=== PATIENT | female | born 1990 | race Caucasian/White ===

== ENCOUNTER → 2017-12-21 06:51 | Outpatient (CLI) | payer OTHER, SELFPAY ==
[2017-12-21 07:51] LABS: Glucose GTT-Gestation. Fasting 84 mg/dL (<105)
[2017-12-21 08:57] LABS: Glucose GTT-Gestational 1 Hr 193 mg/dL (<190)
[2017-12-21 11:04] LABS: Glucose GTT-Gestational 3 Hr 120 L (<145)
[2017-12-21 11:28] LABS: Glucose GTT-Gestational 2 Hr 147 mg/dL (<165)
== END ==
PROVIDERS: Family Provider Internal Medicine; PCP Internal Medicine; Visit Provider Obstetrics & Gynecology
DX: O99.810 Abnormal glucose complicating pregnancy (principal); Z3A.00 Weeks of gestation of pregnancy not specified
CPT/HCPCS: 36415; 82951; 82952

== ENCOUNTER → 2018-01-10 15:34 | Outpatient (CLI) | payer OTHER, SELFPAY ==
[2018-01-10 16:30] LABS: ROM Internal Control Test YES-OK TO RESULT pt. (Internal QC)
[2018-01-10 16:32] LABS: ROM Patient Test Negative (Negative)
== END ==
PROVIDERS: Visit Provider Obstetrics & Gynecology
DX: Z34.83 Encounter for supervision of other normal pregnancy, third trimester (principal)
CPT/HCPCS: 84112

== ENCOUNTER → 2018-02-02 15:13 | Outpatient (CLI) | payer OTHER, SELFPAY ==
[2018-02-02 16:54] LABS: Group B Strep DNA By PCR Negative (Negative); Internal Control PASS; Probe Check PASS; Specimen Processing Control PASS
== END ==
PROVIDERS: Visit Provider Obstetrics & Gynecology
DX: Z36.85 Encounter for antenatal screening for Streptococcus B (principal)
CPT/HCPCS: 87081; 87653

== ENCOUNTER → 2018-02-11 13:23 | Outpatient (CLI) | payer OTHER, SELFPAY ==
[2018-02-11 13:52] LABS: ROM Internal Control Test YES-OK TO RESULT pt. (Internal QC); ROM Patient Test Negative (Negative)
== END ==
PROVIDERS: Visit Provider Obstetrics & Gynecology
DX: Z34.83 Encounter for supervision of other normal pregnancy, third trimester (principal)
CPT/HCPCS: 84112

== ENCOUNTER 2018-02-19 07:00 | Inpatient (IN) | payer OTHER, SELFPAY ==
[2018-02-19 07:36] VITALS: BMI 28.7
[2018-02-19] MEDS: Lactated Ringers 1,000 ML 50 ML IV ×3 (07:50→16:41)
[2018-02-19] MEDS: Oxytocin 30 units/NS 500 ml 30 UNITS/500 ML IV.SOLN IV (08:10)
[2018-02-19 08:14] LABS: Hematocrit 32.8 % (37-47); Hemoglobin 10.9 g/dl (12.0-15.0); Mean Corp Hgb Conc 33.2 g/gl (32-36); Mean Corpuscular Hgb 28.9 pg (27.0-32.0); Mean Platelet Vol. 10.8 fl (6.2-12.0); Platelet Count 227 K/mm3 (150-450); RBC Distribution Width CV 13.8 % (11.6-14.6); RBC Distribution Width SD 41.9 fl (35.1-43.9); Red Blood Count 3.77 M/mm3 (4.2-5.4); White Blood Count 7.9 K/mm3 (4.4-11.0)
[2018-02-19] MEDS: Acetaminophen 325 MG Tablet PO (08:17)
[2018-02-19 08:19] LABS: Scan Indicated on CBC? Y/N NO
[2018-02-19] MEDS: fentaNYL-bupivacaine (epidural) 100 ML BAG EPIDURAL ×2 (12:20→16:58)
--- NOTE | 2018-02-19 16:35 | PCM.PN.OB ---
Subjective: Feeling some pressure. Objective: Afeb VSS FHR tracing Cat 1 - Physical Exam General: Alert, Oriented x3, Cooperative, No apparent distress Abdomen: Gravid, Appropriate for Gestational Age Extremities: No edema Comment: CE /-2 Weight: 178 lb Body Mass Index (BMI) 28.7 Intake and Output for Last 24 Hours 02/17/18 02/18/18 02/19/18 23:59 23:59 23:59 Intake Total 2290 / 2290 Output Total 1600 / 1600 Balance 690 / 690 Laboratory Tests Past 24 Hrs 02/19/18 02/19/18 07:50 07:50 WBC 7.9 RBC 3.77 L Hgb 10.9 L Hct 32.8 L MCV 87.0 MCH 28.9 MCHC 33.2 RDW 13.8 RDW Differential 41.9 Plt Count 227 MPV 10.8 Blood Type B POSITIVE Antibody Screen NEGATIVE Medical Necessity - Tobacco Use Smoking Status: Never smoker Assessment/Plan Progressing in labor. Continue pitocin induction. FHR tracing reassuring.
--- NOTE | 2018-02-19 18:48 | PCM.DCVAG ---
Discharge Diet: No Restrictions Discharge Activity: Return to Normal Activity, May Drive, May Shower Return to work on:: 04/21/18 May resume sexual activity in: 4-6 weeks Call your doctor if your incision/area has: Sudden Increased Bleeding, Increased Pain/ Swelling, Foul Smelling Discharge Call your doctor if you observe: Fever of 101 or Higher, Inability to urinate, Inability to have a bowel movement, Using more than one pad per hour, Shortness of breath, Chest pain, Calf discomfort, Uncontrolled pain Cleanse incision/area with: Soap & Water Additional Instructions: If you experience any of the following, contact your healthcare provider. Bleeding that soaks a pad every hour for 2 hours Fever 100.4 or higher Unrelieved incision or abdominal pain Swelling, redness, discharge or bleeding from your incision or episiotomy site Your incision begins to separate Problems urinating (including inability to urinate or burning while urinating). Visual changes Severe headache Flu-like symptoms Pain or redness in one of both of your breasts Pain, warmth, tenderness or swelling in your legs, especially the calf area Frequent nausea and vomiting Symptoms of depression or anxiety If you experience any of the following, call 911 or go to the nearest Emergency Room. Chest pain Problems breathing Seizure activity Partial or complete paralysis of a body part, slurred speech, weakness or drooping of the face, or a sudden inability to walk or hold your balance Allergies/Adverse Reactions: Allergies morphine Allergy (Verified 02/19/18 07:37) Hives Medications to take at Discharge Ferrous Sulfate [Iron] 325 tab PO BID 04/25/16 Vit No.130/Iron/FA [ Tablet] 1 tab PO DAILY 04/25/16 Calcium Carbonate [Tums] 1,000 mg PO BIDCM 06/06/16 Ibuprofen [Ibu] 600 mg PO Q6H PRN PRN #30 tab 02/19/18 The following prescriptions were given: Ibuprofen [Ibu] 600 mg PO Q6H PRN PRN #30 tab PRN Reason: pain or cramping Please Follow Up With: Conrado Sullivan MD When: 6 weeks Primary Care Physician: Catherine Adair MD [Primary Care Provider] - Proposed Discharge Date: 02/21/18
--- NOTE | 2018-02-19 18:51 | DCINST_ITS ---
Discharge Diet: No Restrictions Discharge Activity: Return to Normal Activity, May Drive, May Shower Return to work on:: 04/21/18 May resume sexual activity in: 4-6 weeks Call your doctor if your incision/area has: Sudden Increased Bleeding, Increased Pain/ Swelling, Foul Smelling Discharge Call your doctor if you observe: Fever of 101 or Higher, Inability to urinate, Inability to have a bowel movement, Using more than one pad per hour, Shortness of breath, Chest pain, Calf discomfort, Uncontrolled pain Cleanse incision/area with: Soap & Water Additional Instructions: If you experience any of the following, contact your healthcare provider. * Bleeding that soaks a pad every hour for 2 hours * Fever 100.4 or higher * Unrelieved incision or abdominal pain * Swelling, redness, discharge or bleeding from your incision or episiotomy site * Your incision begins to separate * Problems urinating (including inability to urinate or burning while urinating) . * Visual changes * Severe headache * Flu-like symptoms * Pain or redness in one of both of your breasts * Pain, warmth, tenderness or swelling in your legs, especially the calf area * Frequent nausea and vomiting * Symptoms of depression or anxiety If you experience any of the following, call 911 or go to the nearest Emergency Room. * Chest pain * Problems breathing * Seizure activity * Partial or complete paralysis of a body part, slurred speech, weakness or drooping of the face, or a sudden inability to walk or hold your balance Allergies/Adverse Reactions: Allergies morphine Allergy (Verified 02/19/18 07:37) Hives Medications to take at Discharge Ferrous Sulfate [Iron] 325 tab PO BID 04/25/16 Vit No.130/Iron/FA [ Tablet] 1 tab PO DAILY 04/25/16 Calcium Carbonate [Tums] 1,000 mg PO BIDCM 06/06/16 Ibuprofen [Ibu] 600 mg PO Q6H PRN PRN #30 tab 02/19/18 The following prescriptions were given: Ibuprofen [Ibu] 600 mg PO Q6H PRN PRN #30 tab PRN Reason: pain or cramping Please Follow Up With: Conrado Sullivan MD When: 6 weeks Primary Care Physician: Catherine Adair MD [Primary Care Provider] - Proposed Discharge Date: 02/21/18
--- NOTE | 2018-02-19 19:03 | PCM.OB.VAG ---
Vaginal Delivery Maternal Presentation: Elective Induction 39 weeks elective induction of labor, uncomplicated Method of Induction: Pitocin Amniotic Membrane Rupture Type: Artificial Rupture of Membrane time: 0835 Amniotic Fluid Description: Clear Final PELON: 02/26/18 Final PELON Source: [place] <20 weeks Gestational age: 39 Weeks and 0 Days Date of Procedure: 02/19/18 Pre-Operative Diagnosis: Labor Post-Operative Diagnosis: Same Surgery/ Procedure Performed: Spontaneous Vaginal Delivery Anesthesiologist: Jadon Yun Type of Anesthesia: Epidural Description of Procedure: Prosper progressed from 4 cm to FD over about 10 hours then pushed for one hour to deliver a live female without complication. Delayed cord clamping was employed. There was an active cry shortly after delivery. After delivery the baby was dried and the mouth suctioned with a bulb suction. The cord was clamped and cut. The Baby was then placed on mom's chest for skin to skin. The placenta was delivered spontaneously intact with a centrally located 3VC. The uterus contracted well. The cervix and upper vagina were intact. A second degree posterior vaginal/perineal tear was repaired with 2-0 vicryl. Presentation: Vertex Placental Delivery Description: Spontaneous Placenta Disposition: [facility] Cord Vessel Description: 3 Vessels Cord Entanglement: None Estimated Blood Loss: 300cc Infant A gender: Female (1 minute): 9 (5 minute): 10 Episiotomy Description: None Laceration: Midline, Perineal Extension/lac, Vaginal Extension/lac, 2nd degree Medications given after delivery: IV Pitocin Complications: None
[2018-02-19] MEDS: Oxytocin 30 units/NS 500 ml 30 UNITS/500 ML IV.SOLN 334 UNITS IV (19:43)
[2018-02-19] MEDS: Oxytocin 30 units/NS 500 ml 30 UNITS/500 ML IV.SOLN 167 UNITS IV (20:15)
[2018-02-19] MEDS: Ibuprofen 600 MG Tablet PO (21:41)
[2018-02-19] MEDS: oxyCODONE 5 MG Tablet PO (23:04)
[2018-02-20] VITALS: BP 103/56; PULSE 72; RESP 17; TEMP 37.2
[2018-02-20] MEDS: oxyCODONE 5 MG Tablet PO ×3 (03:26→21:00)
[2018-02-20 03:36] VITALS: BP 112/76; PULSE 83; RESP 18; TEMP 36.8
[2018-02-20 04:19] LABS: Hematocrit 31.3 % (37-47); Hemoglobin 10.2 g/dl (12.0-15.0); Mean Corp Hgb Conc 32.6 g/gl (32-36); Mean Corpuscular Hgb 28.2 pg (27.0-32.0); Mean Corpuscular Volume 86.5 fL (81-99); Mean Platelet Vol. 10.4 fl (6.2-12.0); Platelet Count 195 K/mm3 (150-450); Red Blood Count 3.62 M/mm3 (4.2-5.4); White Blood Count 12.2 K/mm3 (4.4-11.0)
[2018-02-20 04:20] LABS: Scan Indicated on CBC? Y/N NO
[2018-02-20] MEDS: Ibuprofen 600 MG Tablet PO ×2 (06:52→16:22)
[2018-02-20 08:00] VITALS: BP 120/65; PULSE 87; RESP 16; TEMP 36.8; O2SAT 97
--- NOTE | 2018-02-20 08:09 | PCM.PN.OB ---
Subjective: No specific complaints. Plans to bottle feed. Bleeding light. Objective: Afeb VSS Hgb stable - Physical Exam General: Alert, Oriented x3, Cooperative, No apparent distress Lungs: Clear to auscultation, Normal air movement Cardiovascular: Regular rate, Regular Rhythm Abdomen: Soft, Non Tender, Non-Distended, - - Fundus firm nontender Extremities: No edema Skin: No rashes Neurological: Neuro grossly intact Psych/Mental Status: Normal Affect Comment: Lochia light Vital Signs Temp Pulse Resp BP Pulse Ox 98.2 F 87 16 120/65 97 02/20/18 08:00 02/20/18 08:00 02/20/18 08:00 02/20/18 08:00 02/20/18 08:00 Oxygen Delivery Method Room Air Weight: 178 lb Body Mass Index (BMI) 28.7 Intake and Output for Last 24 Hours 02/18/18 02/19/18 02/20/18 23:59 23:59 23:59 Intake Total 3060 / 3060 Output Total 3700 / 3700 400 / 400 Balance -640 / -640 -400 / -400 Laboratory Tests Past 24 Hrs 02/19/18 02/19/18 02/20/18 07:50 07:50 04:00 WBC 7.9 12.2 H RBC 3.77 L 3.62 L Hgb 10.9 L 10.2 L Hct 32.8 L 31.3 L MCV 87.0 86.5 MCH 28.9 28.2 MCHC 33.2 32.6 RDW 13.8 14.0 RDW Differential 41.9 44.0 H Plt Count 227 195 MPV 10.8 10.4 Blood Type B POSITIVE Antibody Screen NEGATIVE Medical Necessity - Tobacco Use Smoking Status: Never smoker Assessment/Plan Doing well on PP day#1. Continue routine PP care.
[2018-02-20 13:10] VITALS: BP 123/80; PULSE 91; RESP 16; TEMP 36.6; O2SAT 96
[2018-02-20] MEDS: Acetaminophen 500 MG Tablet 1000 MG PO (13:15)
[2018-02-20] MEDS: Prenatal Vits Tablet 1 TABLET PO (13:16)
--- NOTE | 2018-02-20 16:27 | NURSING ---
pt's calls out frequently states is uncomfortable, pt medicated several times for pain she rates a 7/10. states she called her labor pain a 3/10 yesterday and questioning why she is having so much discomfort. pt states its crampy feeling, this is her second del and we discussed afterbirth pains, she states she didnt have this after first baby,pt enc to be up and ambulating and to take motrin every 6 to 8 hours and to avoid the oxyir due to the possible constipation issues that may happen.
[2018-02-20] MEDS: Senna/Docusate Sodium 1 Tablet PO (18:32)
[2018-02-20 20:51] VITALS: BP 121/64; PULSE 82; RESP 18; TEMP 36.6; O2SAT 98
[2018-02-21 02:11] VITALS: BP 112/58; PULSE 78; RESP 16; TEMP 36.6; O2SAT 98
[2018-02-21] MEDS: Ibuprofen 600 MG Tablet PO ×2 (02:29→08:27)
[2018-02-21] MEDS: oxyCODONE 5 MG Tablet PO (05:49)
--- NOTE | 2018-02-21 06:52 | PCM.PN.OB ---
Subjective: No specific complaints. Bleeding light. Objective: AFeb VSS - Physical Exam General: Alert, Oriented x3, Cooperative, No apparent distress Lungs: Clear to auscultation, Normal air movement Cardiovascular: Regular rate, Regular Rhythm Abdomen: Soft, Non Tender, Non-Distended, - - Fundus firm nontender Extremities: No edema Skin: No rashes Neurological: Neuro grossly intact Psych/Mental Status: Normal Affect Comment: Lochia light Vital Signs Temp Pulse Resp BP Pulse Ox 97.8 F 78 16 112/58 L 98 02/21/18 02:11 02/21/18 02:11 02/21/18 02:11 02/21/18 02:11 02/21/18 02:11 Oxygen Delivery Method Room Air Weight: 178 lb Body Mass Index (BMI) 28.7 Intake and Output for Last 24 Hours 02/19/18 02/20/18 02/21/18 23:59 23:59 23:59 Intake Total 3060 / 3060 Output Total 3700 / 3700 400 / 400 Balance -640 / -640 -400 / -400 Medical Necessity - Tobacco Use Smoking Status: Never smoker Assessment/Plan Doing well on PP day#2 cleared for discharge home today. Home going instructions and warnings given.
--- NOTE | 2018-02-21 06:53 | PCM.DC.SUM ---
Discharge Date and Diagnosis Date of Admission: 02/19/18 Date of Discharge: 02/21/18 - Primary Discharge Diagnosis S/P Hospital Course and Treatment Consultations 02/19/18 07:19 Consult: Anesthesia Routine Comment: Reason For Exam: LABOR Operations: None Procedures: - - Pitocin induction, epidural, Summary of Care Provided: The patient is a 27 year old F [admitted for elective induction of labor. Induction resulted in uncomplicated vaginal delivery. Post course unremarkable. Discharged home on PP day#2.] Discharge Diet: No Restrictions Discharge Activity: Return to Normal Activity, May Drive, May Shower Return to work on:: 04/21/18 May resume sexual activity in: 4-6 weeks Call your doctor if your incision/area has: Sudden Increased Bleeding, Increased Pain/ Swelling, Foul Smelling Discharge Call your doctor if you observe: Fever of 101 or Higher, Inability to urinate, Inability to have a bowel movement, Using more than one pad per hour, Shortness of breath, Chest pain, Calf discomfort, Uncontrolled pain Cleanse incision/area with: Soap & Water Home Medications: Medications to take at Discharge Ferrous Sulfate [Iron] 325 tab PO BID 04/25/16 Vit No.130/Iron/FA [ Tablet] 1 tab PO DAILY 04/25/16 Calcium Carbonate [Tums] 1,000 mg PO BIDCM 06/06/16 Ibuprofen [Ibu] 600 mg PO Q6H PRN PRN #30 tab 02/19/18 Following Prescrptions Were Given to Patient: Ibuprofen [Ibu] 600 mg PO Q6H PRN PRN #30 tab PRN Reason: pain or cramping Primary Care Physician: Catherine Adair MD [Primary Care Provider] - Please Follow Up With: Conrado Sullivan MD When: 6 weeks Disposition: Home Minutes spent on discharge:: 15 Patient Condition:: Good Medical Necessity - Tobacco Use Smoking Status: Never smoker Meaningful Use Info Meaningful Use Diagnoses (Choose all that apply): None applicable
[2018-02-21] MEDS: Senna/Docusate Sodium 1 Tablet PO (08:26)
[2018-02-21] MEDS: Prenatal Vits Tablet 1 TABLET PO (08:28)
[2018-02-21 10:00] VITALS: BP 121/80; PULSE 82; RESP 16; TEMP 36.3
== END 2018-02-21 10:00 | disposition home or self-care (01) | DRG 775 ==
PROVIDERS: Admitting Provider Obstetrics & Gynecology; Family Provider Internal Medicine; PCP Internal Medicine; Visit Provider Obstetrics & Gynecology
DX: O99.02 Anemia complicating childbirth (principal); O70.1 Second degree perineal laceration during delivery; Z3A.39 39 weeks gestation of pregnancy; Z37.0 Single live birth
CPT/HCPCS: 59025; 59050; 85027; 86850; 86900; 99218; J7120; G0378

== ENCOUNTER → 2018-08-31 09:40 | Outpatient (CLI) | payer OTHER, SELFPAY ==
[2018-09-05 15:56] LABS: HPV Reflexed? NOT INDICATED
== END ==
PROVIDERS: Family Provider Internal Medicine; PCP Internal Medicine; Referring Provider Obstetrics & Gynecology; Visit Provider Obstetrics & Gynecology
DX: Z12.4 Encounter for screening for malignant neoplasm of cervix (principal)
CPT/HCPCS: 88175; G0145

== ENCOUNTER → 2018-09-23 13:38 | Outpatient (CLI) | payer OTHER, SELFPAY ==
[2018-09-23 17:14] LABS: Chlamydia Trachomatis by PCR Negative (Negative); Neisserai gonorrhoeae by PCR Negative (Negative); Probe Check PASS; Sample Adequacy Control PASS; Specimen Processing Control PASS
--- OUTSIDE RECORDS SUMMARY | 2018-12-28 04:09 | XMS RPT_ITS ---
:1990 Author Organization [place] Support Name Relationship Address Phone ARTURO CARTWRIGHT DDS Unavailable [address] + [place] [address] [facility] Unavailable [address] + [place] [address] ARTURO CARTWRIGHT DDS Unavailable [address] + [place] [address] [facility] Unavailable [address] + [place] [address] ARTURO CARTWRIGHT DDS Unavailable [address] + [place] [address] [facility] Unavailable [address] + [place] [address] ARTURO CARTWRIGHT DDS Unavailable [address] + [place] [address] [facility] Unavailable [address] [phone] [place] [address] ARTURO CARTWRIGHT DDS Unavailable [address] + [place] [address] [facility] Unavailable [address] [phone] [place] [address] ARTURO CARTWRIGHT DDS Unavailable [address] + [place] [address] [facility] Unavailable [address] [phone] [place] [address] ARTURO CARTWRIGHT DDS Unavailable [address] + [place] [address] [facility] Unavailable [address] [phone] [place] [address] ARTURO CARTWRIGHT DDS Unavailable [address] + [place] [address] LAURIE HARRY Unavailable [address] [phone] [place] [address] Care Team Providers Name Role Phone PAGE, JYOTHI VAIBHAV Attending Unavailable FELIXNAZ (YARD SPECIALIST) Attending Unavailable TALAMPAS, KONG D Attending Unavailable TALAMPAS, KONG D Referring Unavailable Seals, Conrado Attending Unavailable Seals, Conrado Attending Unavailable Seals, Conrado Attending Unavailable Seals, Conrado Referring Unavailable Talampas, Kong Primary Care Unavailable Seals, Conrado Admitting Unavailable Seals, Conrado Attending Unavailable Seals, Conrado Referring Unavailable Talampas, Kong Primary Care Unavailable Roel De Los Santos Attending Unavailable Seals, Conrado Attending Unavailable Seals, Conrado Attending Unavailable Seals, Conrado Attending Unavailable Seals, Conrado Referring Unavailable Talampas, Kong Primary Care Unavailable PROBLEMS PROBLEMS DATE TYPE CONDITION / CODE ATTENDING STATUS SOURCE 10/07/2018 Unknown Z34.81 - Encounter Conrado Sullivan Active [facility] for supervision of Community other normal Hospital , first Repository trimester / Z34.81(ICD-10) 09/23/2018 Unknown Z11.3 - Encounter SealConrado sherman Active [facility] for screening for Community infections with a Hospital predominantly Repository sexual mode of transmission / Z11.3(ICD-10) 08/31/2018 Unknown Z12.4 - Encounter SealConrado sherman Active [facility] for screening for Community malignant neoplasm Hospital of cervix / Repository Z12.4(ICD-10) 02/11/2018 Unknown Z34.83 - Encounter SealConrado sherman Active [facility] for supervision of Community other normal Hospital , third Repository trimester / Z34.83(ICD-10) 02/02/2018 Unknown Z36.85 - Encounter SealConrado sherman Active [facility] for Community screening for Hospital Streptococcus B / Repository Z36.85(ICD-10) PROCEDURES PROCEDURES No Procedure Records FoundRESULTS RESULTS URINE DRUG SCREEN Collected: 10/07/2018 Status: F Source: MULU (KRISTINA) 9:28 AM [facility] REPOSITORY Order Comment: Comments: CHECK IMMUNITY STATUS List of Drugs Taken or Suspected? URRAN TYPE CODE TESTS RESULT OUT OF RANGE REFERENCE UNITS LAB L505.0075 TO BE Normal CONFIRMED Result Comment: CONFIRMATORY TESTING FOR ALL POSITIVE URINE DRUG SCREEN RESULTS WILL ONLY BE SENT OUT UPON PHYSICIAN ORDER. VISTA Urine Drug Screen methods provide only preliminary analytical test results. A more specific alternate chemical method must be used in order to obtain a confirmed analytical result. Gas chromatography/mass spectrometery (GC/MS) is the preferred confirmatory method. Clinical consideration and professional judgement should be applied to any drug of abuse test result, particularly when preliminary positive results are used. URINE TCA TESTING MUST BE ORDERED SEPARATELY. USE TEST MNEMONIC: [facility] LAB L505.5005 VISTA UDS PH 7 Normal LAB L505.5015 <1000 ng/mL AMPHETAMINES Normal NEGATIVE LAB L505.5025 < 200 ng/mL BARBITIURATES Normal NEGATIVE LAB L505.5035 < 200 ng/mL BENZODIAZIPINE Normal NEGATIVE LAB L505.5045 < 300 ng/mL COCAINE Normal NEGATIVE LAB L505.5055 < 500 ng/mL ECSTACY Normal NEGATIVE LAB L505.5065 < 300 ng/mL METHADONE Normal NEGATIVE LAB L505.5075 < 300 ng/mL OPIATES Normal NEGATIVE LAB L505.5085 < 25 ng/mL PCP Normal NEGATIVE LAB L505.5095 < 50 ng/mL THC Normal NEGATIVE Performed By: #### L505.5000, L505.6240 #### [facility] [address] [place], [place], [address] NICOTINE URINE DRUG Collected: 10/07/2018 Status: F Source: [place] SCREEN 9:28 AM [facility] REPOSITORY Order Comment: Comments: CHECK IMMUNITY STATUS List of Drugs Taken or Suspected? URRAN TYPE CODE TESTS RESULT OUT OF RANGE REFERENCE UNITS LAB L505.6250 TO BE Normal CONFIRMED Result Comment: CONFIRMATORY TESTING FOR ALL POSITIVE URINE DRUG SCREEN RESULTS WILL ONLY BE SENT OUT UPON PHYSICIAN ORDER. The results of Urine Drug Screen methods provide only preliminary analytical test results. A more specific alternate chemical method must be used in order to obtain a confirmed analytical result. Gas chromatography/mass spectrometery (GC/MS) is the preferred confirmatory method. Clinical consideration and professional judgement should be applied to any drug of abuse test result, particularly when preliminary positive results are used. LAB L505.6270 <200 ng/mL Normal COT DRG Negative SCREEN Result Comment: Cotinine is the first-stage metabolite of Nicotine. Performed By: #### L505.5000, L505.6240 #### [facility] [address] [place], [place], [address] URINALYSIS, ROUTINE Collected: 10/07/2018 Status: F Source: [place] (DIPSTICK) 9:28 AM [facility] REPOSITORY Order Comment: Comments: CHECK IMMUNITY STATUS How was Urine Obtained? Urine, Random TYPE CODE TESTS RESULT OUT OF RANGE REFERENCE UNITS LAB L400.3000 Yellow COLOR Normal Yellow LAB L400.3050 Clear Normal CLARITY Sl. Cloudy LAB L400.3200 Normal mg/dl Normal GLUCOSE, UR Normal LAB L400.3300 Negative mg/dL Normal BILIRUBIN URINE Negative LAB L400.3400 Negative mg/dl Normal KETONE UR Negative LAB L400.3465 1.002-1.030 Normal SP.GR. DIPSTX 1.020 LAB L400.3550 5.0 - 8.0 pH UR Normal 6.5 LAB L400.3600 Negative mg/dl PROT Normal DIPSTX Negative LAB L400.3700 Normal mg/dl Normal UROBILI Normal LAB L400.3750 Negative Normal NITRITE UR Negative LAB L400.3780 Negative /ul Normal OCCULT BLOOD-UR Negative LAB L400.3800 Negative /ul LEUK Normal ESTERASE Negative Performed By: #### L400.2010 #### [facility] [address] [place], [place], [address] CBC W/DIFF, AUTOMATED Collected: 10/07/2018 Status: F Source: [place] 9:28 AM [facility] REPOSITORY TYPE CODE TESTS RESULT OUT OF RANGE REFERENCE UNITS LAB L100.1000 4.4-11.0 K/mm3 Normal WBC 6.3 LAB L100.1200 4.2-5.4 M/mm3 Low RBC 3.99 LAB L100.1300 12.0-15.0 g/dl Low HGB 11.4 LAB L100.1400 37-47 % Low HCT 34.4 LAB L100.1500 81-99 fL Normal MCV 86.2 LAB L100.1600 27.0-32.0 pg Normal MCH 28.6 LAB L100.1700 32-36 g/gl Normal MCHC 33.1 LAB L100.1810 11.6-14.6 % Normal RDW CV 12.6 LAB L100.1820 35.1-43.9 fl Normal RDW SD 39.7 LAB L100.1900 150-450 K/mm3 Normal PLT 243 LAB L100.2000 6.2-12.0 fl Normal MPV 10.7 LAB L100.2100 47-70 % Normal NEUT% 63.0 LAB L100.2200 19-41 % Normal LY% 28.0 LAB L100.2300 0-10 % Normal MONO% 7.0 LAB L100.2400 0-5 % Normal EO% 1.6 LAB L100.2500 0-1 % Normal BASO% 0.2 LAB L100.2550 0.0-0.9 % Normal IM GRAN % 0.200 Result Comment: IG% - Immature Granulocytes (promyelocytes, myelocytes and metamyelocytes) > 1% indicates that a LEFT SHIFT is Present. LAB L100.2620 2.0-7.7 X10 3/uL Normal Absolute Neut 4.0 LAB L100.2720 0.83-4.51 X10 3/ul Normal Absolute Lymph 1.76 Performed By: #### L100.0100 #### [facility] [place], [place], [id number] THYROID STIM HORMONE Collected: 10/07/2018 Status: F Source: AR[place] (TSH) 9:28 AM [facility] REPOSITORY TYPE CODE TESTS RESULT OUT OF RANGE REFERENCE UNITS LAB L501.9520 0.358-3.74 uIU/mL Normal TSH 0.69 Performed By: #### L501.9520 #### [facility] [address] [place], [place], [address] RUBELLA IGG Collected: 10/07/2018 Status: F Source: ARIMO 9:28 AM [facility] REPOSITORY Order Comment: Comments: CHECK IMMUNITY STATUS TYPE CODE TESTS RESULT OUT OF RANGE REFERENCE UNITS LAB L509.4000 IU/mL Normal Rubella IgG 107.4 Result Comment: Antibody results Interpretation of Immune Status < 5 IU/ml Presumed Non-immune 5 - < 10 IU/ml Equivocal > or = 10 IU/ml Presumed Immune Performed By: #### L509.4000, L3890.6005 #### [facility] [address] [place], [place], [address] HIV - WCH Collected: 10/07/2018 Status: F Source: MULU 9:28 AM [facility] REPOSITORY Order Comment: Comments: CHECK IMMUNITY STATUS TYPE CODE TESTS RESULT OUT OF RANGE REFERENCE UNITS LAB L3890.6005 Nonreactive Normal HIV - WCH Non-Reactive Performed By: #### L509.4000, L3890.6005 #### [facility] [address] [place], [place], [address] T AND S-NO Collected: 10/07/2018 Status: F Source: MULU CHARGE W/PNP 9:28 AM [facility] REPOSITORY Order Comment: Reason for Type AND Screen/Red Cells: Surgery? N TYPE CODE TESTS RESULT OUT OF RANGE REFERENCE UNITS LAB B10.0800 B Normal BLOOD POSITIVE TYPE GEL LAB B100.4050 Normal Ab SCREEN NEGATIVE GEL Performed By: #### B100.7550 #### [facility] [address] [place], [place], [address] HEPATITIS B SURFACE Collected: 10/07/2018 Status: F Source: MULU AG 9:28 AM [facility] REPOSITORY Order Comment: Comments: CHECK IMMUNITY STATUS TYPE CODE TESTS RESULT OUT OF RANGE REFERENCE UNITS LAB L3100.0400 Negative Normal HB Negative SURF AG Result Comment: Performed at: [facility] [id number] Dev Ops Engineer: Cem Howell PhD, Phone: [phone] Performed By: #### L3100.0390, L3100.0625, L3400.0000 #### [facility] (refer to report for specific site) refer to report for address and phone number HEPATITIS C ANTIBODIES Collected: 10/07/2018 Status: F Source: MULU 9:28 AM [facility] REPOSITORY Order Comment: Comments: CHECK IMMUNITY STATUS TYPE CODE TESTS RESULT OUT OF RANGE REFERENCE UNITS LAB L3100.0650 0.0-0.9 s/co ratio Normal HEP C AB 0.2 Result Comment: Negative: < 0.8 Indeterminate: 0.8 - 0.9 Positive: > 0.9 The CDC recommends that a positive HCV antibody result be followed up with a HCV Nucleic Acid Amplification test (905443). Performed By: #### L3100.0390, L3100.0625, L3400.0000 #### [facility] (refer to report for specific site) refer to report for address and phone number V-ZOSTER IGG Collected: 10/07/2018 Status: F Source: MULU (IMMUNITY) 9:28 AM [facility] REPOSITORY Order Comment: Comments: CHECK IMMUNITY STATUS TYPE CODE TESTS RESULT OUT OF RANGE REFERENCE UNITS LAB L3400.0000 Immune >165 index Normal VZOST IgG [id number] Result Comment: Negative <135 Equivocal 135 - 165 Positive >165 A positive result generally indicates exposure to the pathogen or administration of specific immunoglobulins, but it is not indication of active infection or stage of disease. Performed By: #### L3100.0390, L3100.0625, L3400.0000 #### [facility] (refer to report for specific site) refer to report for address and phone number RPR Collected: 10/07/2018 Status: F Source: ARIMO 9:28 AM [facility] REPOSITORY TYPE CODE TESTS RESULT OUT OF REFERENCE UNITS RANGE LAB L700.5100 NONREACTIVE Normal RPR NONREACTIVE Performed By: #### L700.5100 #### [facility] [address] [place], [place], [address] CT/NG WCH BY PCR Collected: 09/23/2018 Status: F Source: ARIMO 9:30 AM [facility] REPOSITORY TYPE CODE TESTS RESULT OUT OF RANGE REFERENCE UNITS LAB L8200.2100 Negative Normal Chlam Negative Trac PCR LAB L8200.2200 Negative Normal NG by Negative PCR Performed By: #### L8200.2000 #### [facility] [address] 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 of containers..01 ThinPrep Vial TYPE CODE TESTS RESULT OUT OF RANGE REFERENCE UNITS LAB L7400.0800 . Normal DIAGN Comment Result Comment: NEGATIVE FOR INTRAEPITHELIAL LESION AND MALIGNANCY. CELLULAR CHANGES ASSOCIATED WITH INFLAMMATION ARE PRESENT. THIS SPECIMEN WAS RESCREENED PART OF OUR SERVICING MANAGER PROGRAM. LAB L7400.0900 . Normal ADEQ Comment Result Comment: Satisfactory for evaluation. Endocervical and/or squamous metaplastic cells (endocervical component) are present. LAB L7400.1400 . Normal PERFORM Comment Result Comment: Samira Mims, Tariff Publishing Agent (ASCP) LAB L7400.1500 . Normal QC Comment REV Result Comment: Estefania Rowell, Supervisory Tariff Publishing Agent (ASC) LAB L7400.2575 . Normal TEST METHOD Comment Result Comment: This liquid based ThinPrep(R) pap test was screened with the use of an image guided system. LAB L7400.2600 . Normal . COMM LAB L7400.2700 . Normal PAPSMR Comment Result Comment: The Pap smear is a screening test designed to aid in the detection of premalignant and malignant conditions of the uterine cervix. It is not a diagnostic procedure and should not be used as the sole means of detecting cervical cancer. Both false-positive and false-negative reports do occur. LAB L7400.2800 . Normal HPV RFLX Comment Result Comment: The HPV DNA reflex criteria were not met with this specimen result therefore, no HPV testing was performed. Performed at: - [address] [id number] Dev Ops Engineer: Erma Dee MD, Phone: [phone] Performed By: #### L7400.0350 #### [facility] (refer to report for specific site) refer to report for address and phone number PROGRESS Observed: 07/13/2018 Status: COMPLETED Source: [place] 5:08 PM [facility] REPOSITORY O ID: [id number] Author: Kong Adair Service: (none) Author Type: Physician Type: Progress Notes Filed: 08/02/2018 10:48 PM Note Text: Patient presents with: follow up on medical conditions SUBJECTIVE: Prosper Harry is a 27 year old year old lady here today for follow up appointment for review of medical conditions. Kids now 4yo and 2yo, Working 3 days a week. Anxiety issues noted. Not overwhelmed. Able to keep functioning. Sleeping okay IBS diagnosed. Up to once a week. Was on a med. Sister with Crohn's. Has had 2 scopes neg for IBD. PAST MEDICAL HISTORY Diagnosis Date - Allergic rhinitis Dr. Vick - Angioedema of lips Dr. Vick (tongue and lip swelling) - Cellulitis and abscess of unspecified site from ruptured appendix (March 2011--resolved) - Urticaria Dr. Vick Current Outpatient Prescriptions: ergocalciferol, vitamin D2, (VITAMIN D2 ORAL) Take by mouth. scopolamine (TRANSDERM-SCOP) 1 mg over 3 days Apply 1 Patch as directed every 72 hours. SPRINTEC 0.25-35 mg-mcg per tablet PLUS, CALCIUM CARB, 27 mg iron- 1 mg tab No current facility-administered medications for this visit. OBJECTIVE: BP 122/68 (BP Site: Left Arm, BP Position: Sitting, BP Cuff Size: Regular Adult) Pulse 84 Resp 12 Wt 69.9 kg (154 lb) BMI 24.86 kg/m? Patient is alert, oriented times 3, no apparent distress, affect is bright, reactive. Heart: Regular rate, rhythm, no murmurs, gallops, rubs. Lungs: Clear to auscultation, bilaterally, breathing non labored. Ext: No cyanosis, clubbing, or edema. ASSESSMENT AND PLAN: Encounter Diagnosis ICD-10-CM 1. Irritable bowel syndrome with diarrhea K58.0 2. Motion sickness, subsequent encounter T75.3XXD scopolamine (TRANSDERM-SCOP) 1 mg over 3 days 3. Generalized anxiety disorder F41.1 4. Need for vaccination Z23 ADMIN OF INFLUENZA VACCINE INFLUENZA VACCINE QUADRIVALENT AGE 3 YRS PLUS + IM Above issues addressed with patient. Patient involved in shared decision making for management of medical issues. History and medications reviewed. Epic updated as needed Refills taken care of and meds adjusted as indicated after reviewed history, exam and labs. Health Maintenance reviewed. Updated record and/or ordered tests as recorded. Encouraged on efforts at healthy diet and regular exercise and adequate sleep. Will monitor anxiety symptoms and work on better ways to manage anxiety. Also deal with IBS issues. Follow up with GI as needed. Continue present management. Further evaluation and treatment as indicated. Monitor for signs and symptoms of IBD given family history. Discussed management of motion sickness. Further evaluation and treatment as indicated. Can refer for counseling as indicated. Consider medications as indicated, especially if issues with getting overwhelmed and having trouble functioning. The majority of the visit was spent counseling and/or coordinating care for the patient. Qswt-ek-djuu time was at least 20 minutes. Kong Adair MD CNOV Observed: 07/13/2018 Status: COMPLETED Source: [place] 4:[address] [facility] REPOSITORY Office Visit (INTMWS) PROSPER HARRY ([id number]) 1990 F Date Time Provider Department 07/13/18 4:00 PM KONG ADAIR INTMWS During your visit today, we recorded the following information about you: Pulse Respiration Blood pressure Weight 84/minute 12/minute 122/68 69.9 kg Andrei Russell 07/13/2018 5:08 PM Signed Influenza Vaccine Documentation: ? Patient is identified by name and date of : Yes ? Patient is older than 6 months of age: Yes ? Patient denies a severe allergy to any vaccine component or to a previous dose of influenza vaccine: Yes FOR EGG ALLERGY CONCERNS, REFER TO PROVIDER. ? Denies allergy to gelatin, formaldehyde, thimerosol :Yes ? Patient is afebrile and not moderately or severely ill: Yes ? Does the patient have a history of Guillain ?Plummer Syndrome (a severe paralytic illness): No ? Denies bone marrow transplant prior 6 months or solid organ transplant prior 3 months: Yes ? Denies a history of fainting after a prior injection or medical procedure? Yes If patient has fainted in the past, the CDC recommends sitting or lying down for 15 minutes after the vaccination. ? VIS sheet provided: Yes ? See Immunization Form in EpicCare for details of immunizations administered today. If patient reports dizziness, vision changes or ringing in the ears post vaccination ? please have patient sit or lie down for 15 minutes. Kong Adair MD 08/02/2018 10:48 PM Signed Patient presents with: follow up on medical conditions SUBJECTIVE: Prosper Harry is a 27 year old year old lady here today for follow up appointment for review of medical conditions. Kids now 4yo and 2yo, Working 3 days a week. Anxiety issues noted. Not overwhelmed. Able to keep functioning. Sleeping okay IBS diagnosed. Up to once a week. Was on a med. Sister with Crohn's. Has had 2 scopes neg for IBD. PAST MEDICAL HISTORY Diagnosis Date - Allergic rhinitis Dr. Vick - Angioedema of lips Dr. Vick (tongue and lip swelling) - Cellulitis and abscess of unspecified site from ruptured appendix (March 2011--resolved) - Urticaria Dr. Vick Current Outpatient Prescriptions: ergocalciferol, vitamin D2, (VITAMIN D2 ORAL) Take by mouth. scopolamine (TRANSDERM-SCOP) 1 mg over 3 days Apply 1 Patch as directed every 72 hours. SPRINTEC 0.25-35 mg-mcg per tablet PLUS, CALCIUM CARB, 27 mg iron- 1 mg tab No current facility-administered medications for this visit. OBJECTIVE: BP 122/68 (BP Site: Left Arm, BP Position: Sitting, BP Cuff Size: Regular Adult) Pulse 84 Resp 12 Wt 69.9 kg (154 lb) BMI 24.86 kg/m? Patient is alert, oriented times 3, no apparent distress, affect is bright, reactive. Heart: Regular rate, rhythm, no murmurs, gallops, rubs. Lungs: Clear to auscultation, bilaterally, breathing non labored. Ext: No cyanosis, clubbing, or edema. ASSESSMENT AND PLAN: Encounter Diagnosis ICD-10-CM 1. Irritable bowel syndrome with diarrhea K58.0 2. Motion sickness, subsequent encounter T75.3XXD scopolamine (TRANSDERM-SCOP) 1 mg over 3 days 3. Generalized anxiety disorder F41.1 4. Need for vaccination Z23 ADMIN OF INFLUENZA VACCINE INFLUENZA VACCINE QUADRIVALENT AGE 3 YRS PLUS + IM Above issues addressed with patient. Patient involved in shared decision making for management of medical issues. History and medications reviewed. Epic updated as needed Refills taken care of and meds adjusted as indicated after reviewed history, exam and labs. Health Maintenance reviewed. Updated record and/or ordered tests as recorded. Encouraged on efforts at healthy diet and regular exercise and adequate sleep. Will monitor anxiety symptoms and work on better ways to manage anxiety. Also deal with IBS issues. Follow up with GI as needed. Continue present management. Further evaluation and treatment as indicated. Monitor for signs and symptoms of IBD given family history. Discussed management of motion sickness. Further evaluation and treatment as indicated. Can refer for counseling as indicated. Consider medications as indicated, especially if issues with getting overwhelmed and having trouble functioning. The majority of the visit was spent counseling and/or coordinating care for the patient. Kvru-lg-xwdm time was at least 20 minutes. MD Kong Yañez MD 07/13/2018 5:22 PM Signed May take dicyclomine half to whole pill before meals and bedtime as needed. Referring Provider: KONG ADAIR [[id number]] Allergies As of Date: 07/13/2018 Noted Allergy Reaction MORPHINE 04/07/2011 7 - Swelling Date Reviewed: 07/13/2018 Reviewed by: Andrei Russell - Fully Assessed Reason for Visit: follow up on medical conditions [Other] Primary Visit Diagnosis:Irritable bowel syndrome with diarrhea [K58.0] Other Visit Diagnoses:Motion sickness, subsequent encounter [T75.3XXD] Generalized anxiety disorder [F41.1] Need for vaccination [Z23] Order(s):ADMIN OF INFLUENZA VACCINE [[id number]] Order #: [id number]: 1 INFLUENZA VACCINE QUADRIVALENT AGE 3 YRS PLUS + IM [[id number]] Order #: [id number] scopolamine (TRANSDERM-SCOP) 1 mg over 3 daysApply 1 Patch as directed every 72 hours.Disp: 4 PatchRfl: 3 dicyclomine (BENTYL) 20 mg tabletTake one tablet by mouth as needed before meals and at bedtime.Disp: 60 tabletRfl: 2 Prescriptions as of 07/13/2018 Sig: SCOPOLAMINE 1 MG OVER 3 DAYS * Apply 1 Patch as directed iveth* DICYCLOMINE 20 MG TABLET Take one tablet by mouth as n* VITAMIN D2 ORAL Take by mouth. SPRINTEC (28) 0.25 MG-35 MCG * PLUS (CALCIUM CARBON* Medication notes this encounter PANTOPRAZOLE 40 MG TABLET,DELAYED RELEASE >> Andrei Russell 07/13/2018 4:46 PM >> ANDREI RUSSELL Jul 13, 2018 4:46 PM Not taking Problem List As Of Date 07/13/2018 Noted Resolved Phlegmon [L02.91] INVALID FOR*07/13/2018 Abscess [L02.91] INVALID FOR*07/13/2018 Iron deficiency anemia [D50.9] INVALID FOR* Allergic rhinitis [J30.9] More... Irritable bowel syndrome with diarrhea [K58.0] INVALID FOR* Motion sickness [T75.3XXA] INVALID FOR* More... Other instructions from your clinician: May take dicyclomine half to whole pill before meals and bedtime as needed. Visit Notes: >> Andrei Russell WedJul 13, 2018 4:47 PM Status: Signed Influenza Vaccine Documentation: ? Patient is identified by name and date of : Yes ? Patient is older than 6 months of age: Yes ? Patient denies a severe allergy to any vaccine component or to a previous dose of influenza vaccine: Yes FOR EGG ALLERGY CONCERNS, REFER TO PROVIDER. ? Denies allergy to gelatin, formaldehyde, thimerosol :Yes ? Patient is afebrile and not moderately or severely ill: Yes ? Does the patient have a history of Guillain ?Plummer Syndrome (a severe paralytic illness): No ? Denies bone marrow transplant prior 6 months or solid organ transplant prior 3 months: Yes ? Denies a history of fainting after a prior injection or medical procedure? Yes If patient has fainted in the past, the CDC recommends sitting or lying down for 15 minutes after the vaccination. ? VIS sheet provided: Yes ? See Immunization Form in [facility] for details of immunizations administered today. If patient reports dizziness, vision changes or ringing in the ears post vaccination ? please have patient sit or lie down for 15 minutes. Prescriptions ordered this encounter Disp Refills Start End SCOPOLAMINE 1 MG OVER 3 DAYS TRANSDE* 4 Pa* 3 07/13/2018 Route: TRANSDERM. Sig: Apply 1 Patch as directed every 72 hours. DICYCLOMINE 20 MG TABLET 60 t* 2 07/13/2018 Sig: Take one tablet by mouth as needed before meals and at bedtime. Medications Discontinued During This Encounter scopolamine (TRANSDERM-SCOP) 1 mg ov* 4 Pa* 0 05/06/2018 07/13/2018 Route: TRANSDERMAL Sig: Apply 1 Patch as directed every 72 hours. Disc: Reason for discontinue is not on file. pantoprazole DR (PROTONIX) 40 mg tab* 12/16/2017 07/13/2018 Class: Historical Med Sig: Disc: Reason for discontinue is not on file. Disposition: Return in about 1 year (around 07/13/2019) for plan yearly check up. Follow-up and Disposition History Recorded Encounter Status:Closed by KONG ADAIR MD on 08/02/18 CNOV Observed: 05/06/2018 Status: COMPLETED Source: [place] 1:[address] [facility] REPOSITORY Office Visit (INTMWS) PROSPER HARRY ([id number]) 1990 F Date Time Provider Department 05/06/18 1:40 PM NAZ FELIX (YARD SPECIALIST) INTMWS During your visit today, we recorded the following information about you: Pulse Respiration Blood pressure Weight 80/minute 16/minute 112/68 72.6 kg Naz Felix APRN.CNS 05/06/2018 2:08 PM Signed OUTPATIENT VISIT DATE May 06, 2018 OUTPATIENT VISIT TYPE ESTABLISHED PRIMARY CARE PHYSICIAN: Kong Adair MD CHIEF COMPLAINT: Patient presents with: Medication Request History of Present Illness: Prosper Harry is a 27 year old female who was last seen 2011 by Kong Adair MD She has been seen in the past for ACTIVE PROBLEM LIST Phlegmon Abscess Iron Deficiency Anemia Allergic Rhinitis She reports recent pregancy and delivery. She reports is not breast feeding. She notes continued tiredness / fatigue since giving . Has been getting adequate sleep. Stopped vitamins. History of anmeia. [facility] labs 02/25/2018 WBC 12.2 Hgb 10.2 Hct 31.3 Plt 195. Presents today to request medication for motion sickness, scopolamine which has worked well for her in the past. Going on vacation to [facility]. No recent hospital or ED visits. No new medical problems or medications. Able to obtain medications. No problems with taking medications or note side effects. PAST MEDICAL HISTORY Diagnosis Date - Allergic rhinitis Dr. Vick - Angioedema of lips Dr. Vick (tongue and lip swelling) - Cellulitis and abscess of unspecified site from ruptured appendix (March 2011--resolved) - Urticaria Dr. Vick PAST SURGICAL HISTORY Procedure Laterality Date - COLONOSCOP W/ OR W/O [facility] SPEC 04/17/2011 Colonoscopy - COLONOSCOPY W/BX 04/27/11 - LAP COLECTMY W/ILEUM/ILEOCOL 05-18-11 lap right - PAST SURGICAL HISTORY OF appendix removal March and May 2011 - PAST SURGICAL HISTORY OF 2006 left Acl repair - REMOVAL DEVITAL TISSUE, CARLOS WND MARY <20CM 04/24/11 Debride RLQ wound - TONSILLECTOMY HX 2004 FAMILY HISTORY Problem Relation Age of Onset - Hypertension Father - depression [Other] [OTHER] Father - Diabetes Maternal Grandmother - Diabetes Paternal Grandmother - Heart Paternal Grandmother - Blood Disease Paternal Grandfather - Prostate Cancer Paternal Grandfather Social History Substance Use Topics - Smoking status: Never Smoker - Smokeless tobacco: Never Used - Alcohol use No ALLERGIES: ALLERGIES Allergen Reactions - Morphine Swelling MEDICATIONS ergocalciferol, vitamin D2, (VITAMIN D2 ORAL) Take by mouth. PLUS, CALCIUM CARB, 27 mg iron- [address] (PROTONIX) 40 mg tablet REVIEW OF SYSTEMS: GENERAL: Negative for: Weight loss or gain, Fever or Chills, Weakness and Sleep difficulties. Physical Examination: BP 112/68 Pulse 80 Resp 16 Wt 160 lb (72.6kg) BP w/Orthostatic Vitals Date and Time Orthostatic BP Orthostatic Pulse BP Pulse BP Position BP Site BP Cuff Size 05/06/18 1323 -- -- 112/68 80 Sitting Left Arm Regular Adult Peak Flow Date and Time PF Resp 05/06/18 1323 -- 16 General appearance: Well appearing, alert, in no acute distress, well-hydrated, well nourished. Skin: Skin color, texture, turgor normal, no suspicious rashes or lesions Neck: Supple, no adenopathy; thyroid symmetric, normal size, no bruits Lungs: Lungs clear to auscultation. No wheezing, rhonchi, rales Heart: RRR without murmur, gallop, or rubs. No ectopy Abdomen: Abdomen soft, non-tender. Bowel sounds normal. No masses, organomegaly Extremities: No edema, skin discoloration, clubbing or cyanosis. Good capillary refill. Peripheral pulses: Normal Neuro: Gait normal. Sensation grossly intact. Reviewed chart, outside records, tests I personally interviewed, confirmed and edited the above information if obtained by others. TESTING: Glucose (mg/dL) Date Value 08/26/2012 84 Potassium (mmol/L) Date Value 08/26/2012 3.7 Sodium (mmol/L) Date Value 08/26/2012 140 Chloride (mmol/L) Date Value 08/26/2012 104 CO2 (mmol/L) Date Value 08/26/2012 24 Creatinine (mg/dL) Date Value 08/26/2012 0.61 BUN (mg/dL) Date Value 08/26/2012 7 Anion Gap (mmol/L) Date Value 08/26/2012 12 Calcium (mg/dL) Date Value 08/26/2012 9.3 Glucose (mg/dL) Date Value 08/26/2012 84 Potassium (mmol/L) Date Value 08/26/2012 3.7 Sodium (mmol/L) Date Value 08/26/2012 140 Chloride (mmol/L) Date Value 08/26/2012 104 CO2 (mmol/L) Date Value 08/26/2012 24 Creatinine (mg/dL) Date Value 08/26/2012 0.61 BUN (mg/dL) Date Value 08/26/2012 7 Anion Gap (mmol/L) Date Value 08/26/2012 12 Calcium (mg/dL) Date Value 08/26/2012 9.3 Protein, Total (g/dL) Date Value 08/26/2012 7.2 Albumin (g/dL) Date Value 08/26/2012 4.7 Bilirubin, Total (mg/dL) Date Value 08/26/2012 0.3 Alkaline Phosphatase (U/L) Date Value 08/26/2012 45 AST (U/L) Date Value 08/26/2012 23 ALT (U/L) Date Value 08/26/2012 29 Hemoglobin (g/dL) Date Value 08/26/2012 11.9 Hematocrit (%) Date Value 08/26/2012 36.4 WBC (k/uL) Date Value 08/26/2012 5.77 No results found for: CHOL, HDL, LDL, TG No results found for: HBA1C Ejection Fraction: No results found IMPRESSION: Ms. Harry is a 27 year old woman presents in post period with fatigue, requests motion sickness medication After my examination and review of data, I make the following recommendations. PLAN AND RECOMMENDATIONS: 1. Motion sickness, subsequent encounter - ICD9: V58.89, 994.6, ICD10: T75.3XXD (primary diagnosis) No breast feeding - SCOPOLAMINE 1 MG OVER 3 DAYS TRANSDERMAL PATCH 2. Fatigue, unspecified type - ICD9: 780.79, ICD10: R53.83 Resume vitamins, check CBC if not improving. Consider TSH also - CBC + DIFF 3. Iron deficiency anemia, unspecified iron deficiency anemia type - ICD9: 280.9, ICD10: D50.9 Prior history Follow up with Kong Adair MD to re establish care. Discussed risks, benefits, alternatives, and potential side effects of medications. Ms. Harry expressed understanding and agreed with the plan. Naz Felix APRN.YARD SPECIALIST Referring Provider: SELF [200] Allergies As of Date: 05/06/2018 Noted Allergy Reaction MORPHINE 04/07/2011 7 - Swelling Date Reviewed: 05/06/2018 Reviewed by: Lucille Xiao LPN - Fully Assessed Reason for Visit: Medication Request [138] Primary Visit Diagnosis:Motion sickness, subsequent encounter [T75.3XXD] Other Visit Diagnoses:Fatigue, unspecified type [R53.83] Iron deficiency anemia, unspecified iron deficiency anemia type [D50.9] Order(s):scopolamine (TRANSDERM-SCOP) 1 mg over 3 daysApply 1 Patch as directed every 72 hours.Disp: 4 PatchRfl: 0 CBC + DIFF [SQCBCDIF] Order #: [id number] FUTURE Prescriptions as of 05/06/2018 Sig: VITAMIN D2 ORAL Take by mouth. SCOPOLAMINE 1 MG OVER 3 DAYS * Apply 1 Patch as directed iveth* SPRINTEC (28) 0.25 MG-35 MCG * PLUS (CALCIUM CARBON* PANTOPRAZOLE 40 MG TABLET,DEL* Problem List As Of Date 05/06/2018 Noted Resolved Phlegmon [L02.91] INVALID FOR* Abscess [L02.91] INVALID FOR* Iron deficiency anemia [D50.9] INVALID FOR* Allergic rhinitis [J30.9] More... Prescriptions ordered this encounter Disp Refills Start End SCOPOLAMINE 1 MG OVER 3 DAYS TRANSDE* 4 Pa* 0 05/06/2018 Route: TRANSDERM. Sig: Apply 1 Patch as directed every 72 hours. Follow-up and Disposition History Recorded Encounter Status:Closed by NAZ KASPER on 05/06/18 PROGRESS Observed: 05/06/2018 Status: COMPLETED Source: [place] 1:34 PM [facility] [place] REPOSITORY [facility] ID: [id number] Author: Naz Felix (Cns) Service: (none) Author Type: Nurse Specialist Type: Progress Notes Filed: 05/06/2018 2:08 PM Note Text: OUTPATIENT VISIT DATE May 06, 2018 OUTPATIENT VISIT TYPE ESTABLISHED PRIMARY CARE PHYSICIAN: Kong Adair MD CHIEF COMPLAINT: Patient presents with: Medication Request History of Present Illness: Prosper Harry is a 27 year old female who was last seen 2011 by Kong Adair MD She has been seen in the past for ACTIVE PROBLEM LIST Phlegmon Abscess Iron Deficiency Anemia Allergic Rhinitis She reports recent pregancy and delivery. She reports is not breast feeding. She notes continued tiredness / fatigue since giving . Has been getting adequate sleep. Stopped vitamins. History of anmeia. [facility] labs 02/25/2018 WBC 12.2 Hgb 10.2 Hct 31.3 Plt 195. Presents today to request medication for motion sickness, scopolamine which has worked well for her in the past. Going on vacation to [facility]. No recent hospital or ED visits. No new medical problems or medications. Able to obtain medications. No problems with taking medications or note side effects. PAST MEDICAL HISTORY Diagnosis Date - Allergic rhinitis Dr. Vick - Angioedema of lips Dr. Vick (tongue and lip swelling) - Cellulitis and abscess of unspecified site from ruptured appendix (March 2011--resolved) - Urticaria Dr. Vick PAST SURGICAL HISTORY Procedure Laterality Date - COLONOSCOP W/ OR W/O [facility] SPEC 04/17/2011 Colonoscopy - COLONOSCOPY W/BX 04/27/11 - LAP COLECTMY W/ILEUM/ILEOCOL 05-18-11 lap right - PAST SURGICAL HISTORY OF appendix removal March and May 2011 - PAST SURGICAL HISTORY OF 2006 left Acl repair - REMOVAL DEVITAL TISSUE, CARLOS WND MARY <20CM 04/24/11 Debride RLQ wound - TONSILLECTOMY HX 2004 FAMILY HISTORY Problem Relation Age of Onset - Hypertension Father - depression [Other] [OTHER] Father - Diabetes Maternal Grandmother - Diabetes Paternal Grandmother - Heart Paternal Grandmother - Blood Disease Paternal Grandfather - Prostate Cancer Paternal Grandfather Social History Substance Use Topics - Smoking status: Never Smoker - Smokeless tobacco: Never Used - Alcohol use No ALLERGIES: ALLERGIES Allergen Reactions - Morphine Swelling MEDICATIONS ergocalciferol, vitamin D2, (VITAMIN D2 ORAL) Take by mouth. PLUS, CALCIUM CARB, 27 mg iron- [address] (PROTONIX) 40 mg tablet REVIEW OF SYSTEMS: GENERAL: Negative for: Weight loss or gain, Fever or Chills, Weakness and Sleep difficulties. Physical Examination: BP 112/68 Pulse 80 Resp 16 Wt 160 lb (72.6kg) BP w/Orthostatic Vitals Date and Time Orthostatic BP Orthostatic Pulse BP Pulse BP Position BP Site BP Cuff Size 05/06/18 1323 -- -- 112/68 80 Sitting Left Arm Regular Adult Peak Flow Date and Time PF Resp 05/06/18 1323 -- 16 General appearance: Well appearing, alert, in no acute distress, well-hydrated, well nourished. Skin: Skin color, texture, turgor normal, no suspicious rashes or lesions Neck: Supple, no adenopathy; thyroid symmetric, normal size, no bruits Lungs: Lungs clear to auscultation. No wheezing, rhonchi, rales Heart: RRR without murmur, gallop, or rubs. No ectopy Abdomen: Abdomen soft, non-tender. Bowel sounds normal. No masses, organomegaly Extremities: No edema, skin discoloration, clubbing or cyanosis. Good capillary refill. Peripheral pulses: Normal Neuro: Gait normal. Sensation grossly intact. Reviewed chart, outside records, tests I personally interviewed, confirmed and edited the above information if obtained by others. TESTING: Glucose (mg/dL) Date Value 08/26/2012 84 Potassium (mmol/L) Date Value 08/26/2012 3.7 Sodium (mmol/L) Date Value 08/26/2012 140 Chloride (mmol/L) Date Value 08/26/2012 104 CO2 (mmol/L) Date Value 08/26/2012 24 Creatinine (mg/dL) Date Value 08/26/2012 0.61 BUN (mg/dL) Date Value 08/26/2012 7 Anion Gap (mmol/L) Date Value 08/26/2012 12 Calcium (mg/dL) Date Value 08/26/2012 9.3 Glucose (mg/dL) Date Value 08/26/2012 84 Potassium (mmol/L) Date Value 08/26/2012 3.7 Sodium (mmol/L) Date Value 08/26/2012 140 Chloride (mmol/L) Date Value 08/26/2012 104 CO2 (mmol/L) Date Value 08/26/2012 24 Creatinine (mg/dL) Date Value 08/26/2012 0.61 BUN (mg/dL) Date Value 08/26/2012 7 Anion Gap (mmol/L) Date Value 08/26/2012 12 Calcium (mg/dL) Date Value 08/26/2012 9.3 Protein, Total (g/dL) Date Value 08/26/2012 7.2 Albumin (g/dL) Date Value 08/26/2012 4.7 Bilirubin, Total (mg/dL) Date Value 08/26/2012 0.3 Alkaline Phosphatase (U/L) Date Value 08/26/2012 45 AST (U/L) Date Value 08/26/2012 23 ALT (U/L) Date Value 08/26/2012 29 Hemoglobin (g/dL) Date Value 08/26/2012 11.9 Hematocrit (%) Date Value 08/26/2012 36.4 WBC (k/uL) Date Value 08/26/2012 5.77 No results found for: CHOL, HDL, LDL, TG No results found for: HBA1C Ejection Fraction: No results found IMPRESSION: Ms. Harry is a 27 year old woman presents in post period with fatigue, requests motion sickness medication After my examination and review of data, I make the following recommendations. PLAN AND RECOMMENDATIONS: 1. Motion sickness, subsequent encounter - ICD9: V58.89, 994.6, ICD10: T75.3XXD (primary diagnosis) No breast feeding - SCOPOLAMINE 1 MG OVER 3 DAYS TRANSDERMAL PATCH 2. Fatigue, unspecified type - ICD9: 780.79, ICD10: R53.83 Resume vitamins, check CBC if not improving. Consider TSH also - CBC + DIFF 3. Iron deficiency anemia, unspecified iron deficiency anemia type - ICD9: 280.9, ICD10: D50.9 Prior history Follow up with Kong Adair MD to re establish care. Discussed risks, benefits, alternatives, and potential side effects of medications. Ms. Harry expressed understanding and agreed with the plan. Naz Felix APRN.YARD SPECIALIST DISCHARGE SUMMARY Observed: 02/21/2018 Status: F Source: [place] 6:56 AM [facility] REPOSITORY [facility] Medical Records Department [address] [place] [address] Discharge Summary 02/21/18 0653 MR#: [id number] Acct: [id number] Name: PROSPER HARRY Rep #: [id number] : 1990 27 From: Conrado Sullivan MD PCP: Kong Adair MD Status: ADM IN Location: [place] [address]-1 Discharge Date and Diagnosis Date of Admission: 02/19/18 Date of Discharge: 02/21/18 - Primary Discharge Diagnosis S/P Hospital Course and Treatment Consultations 02/19/18 07:19 Consult: Anesthesia Routine Comment: Reason For Exam: LABOR Operations: None Procedures: - - Pitocin induction, epidural, Summary of Care Provided: The patient is a 27 year old F [admitted for elective induction of labor. Induction resulted in uncomplicated vaginal delivery. Post course unremarkable. Discharged home on PP day#2.] Discharge Diet: No Restrictions Discharge Activity: Return to Normal Activity, May Drive, May Shower Return to work on:: 04/21/18 May resume sexual activity in: 4-6 weeks Call your doctor if your incision/area has: Sudden Increased Bleeding, Increased Pain/ Swelling, Foul Smelling Discharge Call your doctor if you observe: Fever of 101 or Higher, Inability to urinate, Inability to have a bowel movement, Using more than one pad per hour, Shortness of breath, Chest pain, Calf discomfort, Uncontrolled pain Cleanse incision/area with: Soap AND Water Home Medications: Medications to take at Discharge Ferrous Sulfate [Iron] 325 tab PO BID 04/25/16 Vit No.130/Iron/FA [ Tablet] 1 tab PO DAILY 04/25/16 Calcium Carbonate [Tums] 1,000 mg PO BIDCM 06/06/16 Ibuprofen [Ibu] 600 mg PO Q6H PRN PRN #30 tab 02/19/18 Following Prescrptions Were Given to Patient: Ibuprofen [Ibu] 600 mg PO Q6H PRN PRN #30 tab PRN Reason: pain or cramping Primary Care Physician: Kong Adair MD [Primary Care Provider] - Please Follow Up With: Conrado Sullivan MD When: 6 weeks Disposition: Home Minutes spent on discharge:: 15 Patient Condition:: Good Medical Necessity - Tobacco Use Smoking Status: Never smoker Meaningful Use Info Meaningful Use Diagnoses (Choose all that apply): None applicable 02/21/18 0656 <Electronically signed by Conrado Sullivan MD> Date Conrado Sullivan MD Cosigner Signature (if applicable): Date CC: Conrado Sullivan MD; Kong Adair MD Signed CBC-COMPLETE BLOOD CNT Collected: 02/20/2018 Status: F Source: [place] NO DIFF 4:00 AM [facility] REPOSITORY Order Comment: Reason for Laboratory Test Day #1 TYPE CODE TESTS RESULT OUT OF RANGE REFERENCE UNITS LAB L100.1000 4.4-11.0 K/mm3 High WBC 12.2 LAB L100.1200 4.2-5.4 M/mm3 Low RBC 3.62 LAB L100.1300 12.0-15.0 g/dl Low HGB 10.2 LAB L100.1400 37-47 % Low HCT 31.3 LAB L100.1500 81-99 fL Normal MCV 86.5 LAB L100.1600 27.0-32.0 pg Normal MCH 28.2 LAB L100.1700 32-36 g/gl Normal MCHC 32.6 LAB L100.1810 11.6-14.6 % Normal RDW CV 14.0 LAB L100.1820 35.1-43.9 fl High RDW SD 44.0 LAB L100.1900 150-450 K/mm3 Normal PLT 195 LAB L100.2000 6.2-12.0 fl Normal MPV 10.4 Performed By: #### L100.0500 #### [facility] [address] [place], [address] OPERATIVE REPORT Observed: 02/19/2018 Status: F Source: [place] 8:06 PM [facility] REPOSITORY [facility] Medical Records Department [address] [place] [address] Operative Report 02/19/18 1903 MR#: [id number] Acct: [id number] Name: PROSPER HARRY Rep #: [id number] : 1990 27 From: Conrado Sullivan MD PCP: Kong Adair MD Status: ADM IN Location: [place] [id number] Vaginal Delivery Maternal Presentation: Elective Induction 39 weeks elective induction of labor, uncomplicated Method of Induction: Pitocin Amniotic Membrane Rupture Type: Artificial Rupture of Membrane time: 0835 Amniotic Fluid Description: Clear Final PELON: 02/26/18 Final PELON Source: [place] <20 weeks Gestational age: 39 Weeks and 0 Days Date of Procedure: 02/19/18 Pre-Operative Diagnosis: Labor Post-Operative Diagnosis: Same Surgery/ Procedure Performed: Spontaneous Vaginal Delivery Anesthesiologist: Jadon Yun Type of Anesthesia: Epidural Description of Procedure: Prosper progressed from 4 cm to FD over about 10 hours then pushed for one hour to deliver a live female without complication. Delayed cord clamping was employed. There was an active cry shortly after delivery. After delivery the baby was dried and the mouth suctioned with a bulb suction. The cord was clamped and cut. The Baby was then placed on mom's chest for skin to skin. The placenta was delivered spontaneously intact with a centrally located 3VC. The uterus contracted well. The cervix and upper vagina were intact. A second degree posterior vaginal/perineal tear was repaired with 2-0 vicryl. Presentation: Vertex Placental Delivery Description: Spontaneous Placenta Disposition: [facility] Cord Vessel Description: 3 Vessels Cord Entanglement: None Estimated Blood Loss: 300cc Infant A gender: Female (1 minute): 9 (5 minute): 10 Episiotomy Description: None Laceration: Midline, Perineal Extension/lac, Vaginal Extension/lac, 2nd degree Medications given after delivery: IV Pitocin Complications: None 02/19/182005 <Electronically signed by Conrado Sullivan MD> Date Conrado Sullivan MD CC: Conrado Sullivna MD; Kong Adair MD Signed DISCHARGE INSTRUCTION Observed: 02/19/2018 Status: F Source: [place] 6:51 PM [facility] RE[facility] Medical Records Department [address] [place] [address] Instructions for Home/Discharge Instructions 02/19/18 1848 MR#: [id number] Acct: [id number] Name: PROSPER HARRY Rep #: [id number] : 1990 27 From: Conrado Sullivan MD PCP: Kong Adair MD Status: ADM IN Discharge Diet: No Restrictions Discharge Activity: Return to Normal Activity, May Drive, May Shower Return to work on:: 04/21/18 May resume sexual activity in: 4-6 weeks Call your doctor if your incision/area has: Sudden Increased Bleeding, Increased Pain/ Swelling, Foul Smelling Discharge Call your doctor if you observe: Fever of 101 or Higher, Inability to urinate, Inability to have a bowel movement, Using more than one pad per hour, Shortness of breath, Chest pain, Calf discomfort, Uncontrolled pain Cleanse incision/area with: Soap AND Water Additional Instructions: If you experience any of the following, contact your healthcare provider. * Bleeding that soaks a pad every hour for 2 hours * Fever 100.4 or higher * Unrelieved incision or abdominal pain * Swelling, redness, discharge or bleeding from your incision or episiotomy site * Your incision begins to separate * Problems urinating (including inability to urinate or burning while urinating). * Visual changes * Severe headache * Flu-like symptoms * Pain or redness in one of both of your breasts * Pain, warmth, tenderness or swelling in your legs, especially the calf area * Frequent nausea and vomiting * Symptoms of depression or anxiety If you experience any of the following, call 911 or go to the nearest Emergency Room. * Chest pain * Problems breathing * Seizure activity * Partial or complete paralysis of a body part, slurred speech, weakness or drooping of the face, or a sudden inability to walk or hold your balance Allergies/Adverse Reactions: Allergies morphine Allergy (Verified 02/19/18 07:37) Hives Medications to take at Discharge Ferrous Sulfate [Iron] 325 tab PO BID 04/25/16 Vit No.130/Iron/FA [ Tablet] 1 tab PO DAILY 04/25/16 Calcium Carbonate [Tums] 1,000 mg PO BIDCM 06/06/16 Ibuprofen [Ibu] 600 mg PO Q6H PRN PRN #30 tab 02/19/18 The following prescriptions were given: Ibuprofen [Ibu] 600 mg PO Q6H PRN PRN #30 tab PRN Reason: pain or cramping Please Follow Up With: Conrado Sullivan MD When: 6 weeks Primary Care Physician: Kong Adair MD [Primary Care Provider] - Proposed Discharge Date: 02/21/18 02/19/18 322 <Electronically signed by Conrado Sullivan MD> Date Conrado Sullivan MD CC: Kong Adair MD CBC-COMPLETE BLOOD CNT Collected: 02/19/2018 Status: F Source: [place] NO DIFF 7:50 AM [facility] RE[facility] TYPE CODE TESTS RESULT OUT OF RANGE REFERENCE UNITS LAB L100.1000 4.4-11.0 K/mm3 Normal WBC 7.9 LAB L100.1200 4.2-5.4 M/mm3 Low RBC 3.77 LAB L100.1300 12.0-15.0 g/dl Low HGB 10.9 LAB L100.1400 37-47 % Low HCT 32.8 LAB L100.1500 81-99 fL Normal MCV 87.0 LAB L100.1600 27.0-32.0 pg Normal MCH 28.9 LAB L100.1700 32-36 g/gl Normal MCHC 33.2 LAB L100.1810 11.6-14.6 % Normal RDW CV 13.8 LAB L100.1820 35.1-43.9 fl Normal RDW SD 41.9 LAB L100.1900 150-450 K/mm3 Normal PLT 227 LAB L100.2000 6.2-12.0 fl Normal MPV 10.8 Performed By: #### L100.0500 #### [facility] [address] [place], [place], [address] TYPE AND SCREEN Collected: 02/19/2018 Status: F Source: [place] 7:50 AM [facility] RE[facility] Order Comment: Reason for Type AND Screen/Red Cells: ROUTINE TYPE CODE TESTS RESULT OUT OF RANGE REFERENCE UNITS LAB B10.0800 B Normal BLOOD TYPE GEL POSITIVE LAB B100.4000 Normal Antibody NEGATIVE Screen Performed By: #### B101.7450 #### [facility] [address] [place], [address] (ROM) RUPTURE OF Collected: 02/11/2018 Status: F Source: [place] 1:00 PM [facility] RE[facility] Order Comment: STAT...CALL RESULT TO OFFICE [phone] SPEAK TO A NURSE TYPE CODE TESTS RESULT OUT OF RANGE REFERENCE UNITS LAB L205.1310 Negative Normal ROM Negative Result Comment: Amniotic fluid not present indicates No Rupture of Membranes at time of specimen collection. Performed By: #### [id number] #### [facility]. [place], [place], [address] GROUP B STREP DNA Collected: 02/02/2018 Status: F Source: MULU BY PCR 2:15 PM [facility] REPOSITORY Order Comment: Source: Vaginal-Rectal TYPE CODE TESTS RESULT OUT OF RANGE REFERENCE UNITS LAB L8200.0100 Negative Normal GBS TEST Negative RESULT Performed By: #### [id number] #### [facility] [place], [address] Observed: 02/02/2018 Status: F Source: MULU CULTURE, GROUP B 12:00 AM [facility] STREPTOCOCCUS REPOSITORY BROCK Culture Group B Beta Streptococcus is not isolated. Performed By: #### [id number] #### [facility] [address] [facility] [place], [address] CNOV Observed: 01/28/2018 Status: COMPLETED Source: [place] 12:00 PM [facility] REPOSITORY Office Visit ([place]) PROSPER HARRY ([id number]) 1990 F Date Time Provider Department 01/28/18 12:00 PM JYOTHI YANEZ During your visit today, we recorded the following information about you: Temperature Pulse Respiration Blood pressure 97.8 degrees 93/minute 18/minute 120/76 Weight Height 81.6 kg 1.676 m Jyothi Yanez APRN.[facility] 01/28/2018 12:05 PM Addendum ASSESSMENT/PLAN: 1. Bacterial sinusitis - ICD9: 473.9, 041.9, ICD10: J32.9, B96.89 - Will begin treatment with Amoxicillin for 10 days - The patient should also be given warm salt water gargles, throat lozenges and/or OTC throat spray as needed and nasal saline gtts and suction prn for the first 5-7 days of treatment. - Supportive care with plenty of fluids, rest, and analgesia prn. - Follow up in 3-5 days if symptoms persist or worsen. - AMOXICILLIN 500 MG CAPSULE - eat first, yogurt daily Jyothi Yanez APRN.LICENSED MORTGAGE LOAN OFFICER [facility] CARE PATIENT INFO ACUTE SINUSITIS OVERVIEW Rhinosinusitis, or more commonly sinusitis, is the medical term for inflammation (swelling) of the lining of the sinuses and nose. The sinuses are the hollow areas within the facial bones that are connected to the nasal openings. The sinuses are lined with mucous membranes, similar to the inside of the nose. There are two main types of sinusitis: acute and chronic. Acute sinusitis is inflammation that lasts for less than four weeks while chronic sinusitis lasts for more than 12 weeks. Acute sinusitis is common, affecting approximately one million people per year in the [place]. ACUTE SINUSITIS CAUSES The most common cause of acute sinusitis is a viral infection associated with the common cold. Bacterial sinusitis occurs much less commonly, in only 0.5 to 2 percent of cases, usually as a complication of viral sinusitis. Because antibiotics are effective only against bacterial, and not viral, infections, most people do not need antibiotics for acute sinusitis. ACUTE SINUSITIS SYMPTOMS Symptoms of acute sinusitis include: ? Nasal congestion or blockage ? Thick, yellow to green discharge from the nose ? Pain in the teeth ? Pain or pressure in the face that is worse when bending forwards Other acute sinusitis symptoms can include fever (temperature greater than 100.4?F or 38?C), fatigue, cough, difficulty or inability to smell, ear pressure or fullness, headache, and bad breath. In most cases, these symptoms develop over the course of one day and begin to improve within seven to 10 days. DO I NEED TO BE EXAMINED? It is difficult to know if you have a viral or bacterial sinus infection initially. However, most people with a viral infection improve without treatment within seven to 10 days after symptoms begin. Bacterial sinusitis also sometimes improves without treatment, although it can also worsen and require treatment. If one or more of the following bothersome symptoms last more than seven days, an examination by a healthcare provider is recommended: ? Thick, yellow to green discharge from the nose ? Face or tooth pain, especially if it is only on one side ? Tenderness over the maxillary sinuses (located on the left and right side of the nose, inside the cheekbones) ? Symptoms that initially improve and then worsen When to seek immediate help ? If you have one or more of the following symptoms, you should seek medical attention immediately (even if symptoms have been present for less than seven days): ? High fever (ANDgt;102.5? F or 39.2? C) ? Sudden, severe pain in the face or head ? Double vision or difficulty seeing ? Confusion or difficulty thinking clearly ? Swelling or redness around one or both eyes ? Stiff neck, shortness of breath ACUTE SINUSITIS TREATMENT Initial treatment of a sinus infection aims to relieve symptoms since almost everyone will improve within the first seven to 10 days. Experts recommend avoiding antibiotics during this time unless there is clear evidence of a severe bacterial infection. Initial treatment Pain relief ? Non-prescription pain medications, such as acetaminophen (eg, Tylenol?) or ibuprofen (eg, Motrin?, Advil?) are recommended for pain. Nasal irrigation and saline sprays ? Rinsing the nose with a salt-water (saline) solution is called nasal irrigation or nasal lavage. Saline is also available in a standard nasal spray, although this is not as effective as using larger amounts of water in an irrigation. Nasal irrigation is particularly useful for treating drainage down the back of the throat, sneezing, nasal dryness, and congestion. The treatment helps by rinsing out allergens and irritants from the nose. Saline rinses also clean the nasal lining and can be used before applying sprays containing medications, to get a better effect from the medication. Nasal lavage with warmed saline can be performed as needed, once per day, or twice daily for increased symptoms. Nasal lavage carries few risks when performed correctly. Saline nasal sprays and irrigation kits can be purchased [id number]. Saline mixes can also be purchased or patients can make their own solution. A variety of devices, including bulb syringes, Neti pots, and bottle sprayers, may be used to perform nasal lavage; instructions for nasal lavage are provided in the table. At least 200 mL (about 3/4 cup) of fluid is recommended for each nostril. Nasal decongestants ? Nasal decongestant sprays, including oxymetazoline (Afrin?) and phenylephrine (Hakeem-synephrine?) can be used to temporarily treat congestion. However, these sprays should not be used for more than two to three days due to the risk of rebound congestion (when the nose is congested constantly unless the medication is used repeatedly). Other treatments ? Other treatments for congestion, such as oral antihistamines (such as diphenhydramine/Benadryl?) or zinc supplements are not proven to improve symptoms of sinusitis and can have unwanted side effects. Medications to thin secretions (such as guaifenesin) may help to clear mucus. Secondline treatment ? If symptoms have not improved in seven to ten days, you should arrange for medical evaluation. You may need further treatment. Nasal glucocorticoids ? Nasal glucocorticoids (steroids delivered by a nasal spray) can help to reduce swelling inside the nose, usually within two to three days. These drugs have few side effects and dramatically relieve symptoms in most people. There are a number of nasal glucocorticoids available by prescription. These drugs are all effective, but differ in how frequently they must be used and how much they cost. You may need to use a nasal decongestant for a few days before starting a nasal glucocorticoid to reduce nasal swelling; this will allow the nasal glucocorticoid to reach more areas of the nasal passages Do I need an antibiotic? ? If bothersome symptoms of sinusitis persist for 10 or more days, it is possible that you have bacterial sinusitis. The need for antibiotics depends upon the severity of your symptoms. Mild symptoms ? There are two possible treatment options if you have mild sinusitis symptoms: treat with antibiotics or continue to watch and wait for one week. Watching and waiting is a reasonable option because up to 75 percent of people with bacterial sinusitis improve within one month without antibiotics. During the watch and wait period, treatments to improve symptoms are recommended. If symptoms worsen or do not improve after watching and waiting, treatment with an antibiotic is usually recommended. Treatments to relieve symptoms are recommended while using antibiotics. Moderate or severe symptoms ? Most healthcare providers will prescribe an antibiotic for moderate to severe symptoms (temperature ANDgt;38.3? C or 101? F and/or severe pain that interferes with usual activities). Treatments to relieve symptoms are also recommended during antibiotic treatment. One of the least expensive and most effective antibiotics for sinusitis is amoxicillin. An alternate antibiotic will be prescribed if you are allergic to penicillin. Regardless of which antibiotic is prescribed, it is important to follow the dosing instructions carefully and to finish the entire course of treatment. Taking the medication less often than prescribed or stopping the medication early can lead to complications, such as a recurrent infection. What if I do not improve with treatment? ? If you do not improve or worsen after a course of antibiotics, you should be re-examined. In some cases, symptoms of sinusitis improve but then recur. This is usually because the infection was not completely eliminated by the antibiotic. An alternate antibiotic, extended antibiotic treatment, and/or further testing may be recommended, depending upon your individual situation. Jyothi Yanez, CREDIT REVIEW MANAGER.LICENSED MORTGAGE LOAN OFFICER 01/28/2018 12:22 PM Signed 01/28/2018 Patient presents with: Sinus Infection,frequent/recurring SUBJECTIVE: This is a 37 week 27 year old female that is here today for acute onset of green nasal drainage, scratchy irritated sore throat, dizziness, lightheadedness, post nasal drainage, right ear pain and pressure for 3 weeks. Adenoidectomy and tonsillectomy as a child. Tested allergic to ragweed; uses Claritin during high pollen months. Patient rates pain at 5 on Numerical pain scale. Patient has been taking mucinex with minimal relief of symptoms. The severity is mild and the symptoms are not improving. The patient did not have a similar problem in the last 3 months. The patient did not take any antibiotics in the last 3 months. Patient has been exposed to sick contacts. Patient denies recent travel. Pertinent medical history. PAST MEDICAL HISTORY Diagnosis Date - Allergic rhinitis Dr. Vick - Angioedema of lips Dr. Vick (tongue and lip swelling) - Cellulitis and abscess of unspecified site from ruptured appendix (March 2011--resolved) - Urticaria Dr. iVck ALLERGIES Morphine MEDICATIONS Current Outpatient Prescriptions: PLUS, CALCIUM CARB, 27 mg iron- [address] (PROTONIX) 40 mg tablet amoxicillin (POLYMOX, AMOXIL) 500 mg capsule Take 1 capsule by mouth three times daily for 10 days. No current facility-administered medications for this visit. SOCIAL HISTORY Social History Marital status: Spouse name: Years of education: Number of children: 0 Occupational History Occupation Employer Comment [employer] Social History Main Topics Smoking status: Never Smoker Smokeless status: Never Used Alcohol use: No Drug use: No REVIEW OF SYSTEMS Review of Systems Constitutional: Negative for chills, diaphoresis, fatigue and fever. HENT: Positive for congestion, ear pain, postnasal drip, rhinorrhea and sore throat. Respiratory: Negative for cough, chest tightness, shortness of breath and wheezing. Cardiovascular: Negative for chest pain and palpitations. Gastrointestinal: Negative for abdominal pain, diarrhea, nausea and vomiting. Skin: Negative for rash. Neurological: Negative for dizziness, light-headedness and headaches. OBJECTIVE: BP 120/76 Pulse 93 Temp 36.6 ?C (97.8 ?F) Resp 18 Ht 167.6 cm (5' 6ANDquot;) Wt 81.6 kg (180 lb) SpO2 99% BMI 29.05 kg/m2 Physical Exam Constitutional: She is oriented to person, place, and time. Vital signs are normal. She appears well-developed and well-nourished. Non- toxic appearance. HENT: Head: Normocephalic and atraumatic. Right Ear: External ear and ear canal normal. A middle ear effusion is present. Left Ear: External ear and ear canal normal. A middle ear effusion is present. Nose: Mucosal edema, rhinorrhea and sinus tenderness present. Right sinus exhibits no maxillary sinus tenderness and no frontal sinus tenderness. Left sinus exhibits no maxillary sinus tenderness and no frontal sinus tenderness. Mouth/Throat: Uvula is midline and mucous membranes are normal. Posterior oropharyngeal erythema present. Neck: Normal range of motion. Cardiovascular: Normal rate, regular rhythm and normal heart sounds. Pulmonary/Chest: Effort normal and breath sounds normal. Lymphadenopathy: She has no cervical adenopathy. She has no axillary adenopathy. Neurological: She is alert and oriented to person, place, and time. Skin: Skin is warm, dry and intact. Nursing note and vitals reviewed. ASSESSMENT/PLAN: 1. Bacterial sinusitis - ICD9: 473.9, 041.9, ICD10: J32.9, B96.89 - Will begin treatment with Amoxicillin for 10 days - The patient should also be given warm salt water gargles, throat lozenges and/or OTC throat spray as needed and nasal saline gtts and suction prn for the first 5-7 days of treatment. - Supportive care with plenty of fluids, rest, and analgesia prn. - Follow up in 3-5 days if symptoms persist or worsen. - AMOXICILLIN 500 MG CAPSULE - eat first, yogurt daily Jyothi Yanez, CREDIT REVIEW MANAGER.LICENSED MORTGAGE LOAN OFFICER Referring Provider: SELF [[id number]] Allergies As of Date: 01/28/2018 Noted Allergy Reaction MORPHINE 04/07/2011 7 - Swelling Date Reviewed: 01/28/2018 Reviewed by: Natacha Dobbins Ma - Fully Assessed Reason for Visit: Sinus Infection,frequent/recurring [1167] Primary Visit Diagnosis:Bacterial sinusitis [J32.9, B96.89] Order(s):amoxicillin (POLYMOX, AMOXIL) 500 mg capsuleTake 1 capsule by mouth three times daily for 10 days.Disp: 30 capsuleRfl: 0 Prescriptions as of 01/28/2018 Sig: PLUS (CALCIUM CARBON* PANTOPRAZOLE 40 MG TABLET,DEL* AMOXICILLIN 500 MG CAPSULE Take 1 capsule by mouth three* Problem List As Of Date 01/28/2018 Noted Resolved Phlegmon [L02.91] INVALID FOR* Abscess [L02.91] INVALID FOR* Iron deficiency anemia [D50.9] INVALID FOR* Allergic rhinitis [J30.9] More... Other instructions from your clinician: ASSESSMENT/PLAN: 1. Bacterial sinusitis - ICD9: 473.9, 041.9, ICD10: J32.9, B96.89 - Will begin treatment with Amoxicillin for 10 days - The patient should also be given warm salt water gargles, throat lozenges and/or OTC throat spray as needed and nasal saline gtts and suction prn for the first 5-7 days of treatment. - Supportive care with plenty of fluids, rest, and analgesia prn. - Follow up in 3-5 days if symptoms persist or worsen. - AMOXICILLIN 500 MG CAPSULE - eat first, yogurt daily Jyothi Yanez APRN.LICENSED MORTGAGE LOAN OFFICER [facility] PATIENT INFO ACUTE SINUSITIS OVERVIEW Rhinosinusitis, or more commonly sinusitis, is the medical term for inflammation (swelling) of the lining of the sinuses and nose. The sinuses are the hollow areas within the facial bones that are connected to the nasal openings. The sinuses are lined with mucous membranes, similar to the inside of the nose. There are two main types of sinusitis: acute and chronic. Acute sinusitis is inflammation that lasts for less than four weeks while chronic sinusitis lasts for more than 12 weeks. Acute sinusitis is common, affecting approximately one million people per year in the [place]. ACUTE SINUSITIS CAUSES The most common cause of acute sinusitis is a viral infection associated with the common cold. Bacterial sinusitis occurs much less commonly, in only 0.5 to 2 percent of cases, usually as a complication of viral sinusitis. Because antibiotics are effective only against bacterial, and not viral, infections, most people do not need antibiotics for acute sinusitis. ACUTE SINUSITIS SYMPTOMS Symptoms of acute sinusitis include: ? Nasal congestion or blockage ? Thick, yellow to green discharge from the nose ? Pain in the teeth ? Pain or pressure in the face that is worse when bending forwards Other acute sinusitis symptoms can include fever (temperature greater than 100.4?F or 38?C), fatigue, cough, difficulty or inability to smell, ear pressure or fullness, headache, and bad breath. In most cases, these symptoms develop over the course of one day and begin to improve within seven to 10 days. DO I NEED TO BE EXAMINED? It is difficult to know if you have a viral or bacterial sinus infection initially. However, most people with a viral infection improve without treatment within seven to 10 days after symptoms begin. Bacterial sinusitis also sometimes improves without treatment, although it can also worsen and require treatment. If one or more of the following bothersome symptoms last more than seven days, an examination by a healthcare provider is recommended: ? Thick, yellow to green discharge from the nose ? Face or tooth pain, especially if it is only on one side ? Tenderness over the maxillary sinuses (located on the left and right side of the nose, inside the cheekbones) ? Symptoms that initially improve and then worsen When to seek immediate help ? If you have one or more of the following symptoms, you should seek medical attention immediately (even if symptoms have been present for less than seven days): ? High fever (>102.5? F or 39.2? C) ? Sudden, severe pain in the face or head ? Double vision or difficulty seeing ? Confusion or difficulty thinking clearly ? Swelling or redness around one or both eyes ? Stiff neck, shortness of breath ACUTE SINUSITIS TREATMENT Initial treatment of a sinus infection aims to relieve symptoms since almost everyone will improve within the first seven to 10 days. Experts recommend avoiding antibiotics during this time unless there is clear evidence of a severe bacterial infection. Initial treatment Pain relief ? Non-prescription pain medications, such as acetaminophen (eg, Tylenol?) or ibuprofen (eg, Motrin?, Advil?) are recommended for pain. Nasal irrigation and saline sprays ? Rinsing the nose with a salt-water (saline) solution is called nasal irrigation or nasal lavage. Saline is also available in a standard nasal spray, although this is not as effective as using larger amounts of water in an irrigation. Nasal irrigation is particularly useful for treating drainage down the back of the throat, sneezing, nasal dryness, and congestion. The treatment helps by rinsing out allergens and irritants from the nose. Saline rinses also clean the nasal lining and can be used before applying sprays containing medications, to get a better effect from the medication. Nasal lavage with warmed saline can be performed as needed, once per day, or twice daily for increased symptoms. Nasal lavage carries few risks when performed correctly. Saline nasal sprays and irrigation kits can be purchased [id number]. Saline mixes can also be purchased or patients can make their own solution. A variety of devices, including bulb syringes, Neti pots, and bottle sprayers, may be used to perform nasal lavage; instructions for nasal lavage are provided in the table. At least 200 mL (about 3/4 cup) of fluid is recommended for each nostril. Nasal decongestants ? Nasal decongestant sprays, including oxymetazoline (Afrin?) and phenylephrine (Hakeem-synephrine?) can be used to temporarily treat congestion. However, these sprays should not be used for more than two to three days due to the risk of rebound congestion (when the nose is congested constantly unless the medication is used repeatedly). Other treatments ? Other treatments for congestion, such as oral antihistamines (such as diphenhydramine/Benadryl?) or zinc supplements are not proven to improve symptoms of sinusitis and can have unwanted side effects. Medications to thin secretions (such as guaifenesin) may help to clear mucus. Secondline treatment ? If symptoms have not improved in seven to ten days, you should arrange for medical evaluation. You may need further treatment. Nasal glucocorticoids ? Nasal glucocorticoids (steroids delivered by a nasal spray) can help to reduce swelling inside the nose, usually within two to three days. These drugs have few side effects and dramatically relieve symptoms in most people. There are a number of nasal glucocorticoids available by prescription. These drugs are all effective, but differ in how frequently they must be used and how much they cost. You may need to use a nasal decongestant for a few days before starting a nasal glucocorticoid to reduce nasal swelling; this will allow the nasal glucocorticoid to reach more areas of the nasal passages Do I need an antibiotic? ? If bothersome symptoms of sinusitis persist for 10 or more days, it is possible that you have bacterial sinusitis. The need for antibiotics depends upon the severity of your symptoms. Mild symptoms ? There are two possible treatment options if you have mild sinusitis symptoms: treat with antibiotics or continue to watch and wait for one week. Watching and waiting is a reasonable option because up to 75 percent of people with bacterial sinusitis improve within one month without antibiotics. During the watch and wait period, treatments to improve symptoms are recommended. If symptoms worsen or do not improve after watching and waiting, treatment with an antibiotic is usually recommended. Treatments to relieve symptoms are recommended while using antibiotics. Moderate or severe symptoms ? Most healthcare providers will prescribe an antibiotic for moderate to severe symptoms (temperature >38.3? C or 101? F and/or severe pain that interferes with usual activities). Treatments to relieve symptoms are also recommended during antibiotic treatment. One of the least expensive and most effective antibiotics for sinusitis is amoxicillin. An alternate antibiotic will be prescribed if you are allergic to penicillin. Regardless of which antibiotic is prescribed, it is important to follow the dosing instructions carefully and to finish the entire course of treatment. Taking the medication less often than prescribed or stopping the medication early can lead to complications, such as a recurrent infection. What if I do not improve with treatment? ? If you do not improve or worsen after a course of antibiotics, you should be re-examined. In some cases, symptoms of sinusitis improve but then recur. This is usually because the infection was not completely eliminated by the antibiotic. An alternate antibiotic, extended antibiotic treatment, and/or further testing may be recommended, depending upon your individual situation. Prescriptions ordered this encounter Disp Refills Start End AMOXICILLIN 500 MG CAPSULE 30 c* 0 01/28/2018 02/07/2018 Route: ORAL Sig: Take 1 capsule by mouth three times daily for 10 days. Encounter Status:Closed by JYOTHI YANEZ on 01/28/18 PROGRESS Observed: 01/28/2018 Status: COMPLETED Source: [place] 11:[address] [facility] REPOSITORY HNO ID: [id number] Author: Jyothi Yanez Service: (none) Author Type: Nurse Practitioner Type: Progress Notes Filed: 01/28/2018 12:22 PM Note Text: 01/28/2018 Patient presents with: Sinus Infection,frequent/recurring SUBJECTIVE: This is a 37 week 27 year old female that is here today for acute onset of green nasal drainage, scratchy irritated sore throat, dizziness, lightheadedness, post nasal drainage, right ear pain and pressure for 3 weeks. Adenoidectomy and tonsillectomy as a child. Tested allergic to ragweed; uses Claritin during high pollen months. Patient rates pain at 5 on Numerical pain scale. Patient has been taking mucinex with minimal relief of symptoms. The severity is mild and the symptoms are not improving. The patient did not have a similar problem in the last 3 months. The patient did not take any antibiotics in the last 3 months. Patient has been exposed to sick contacts. Patient denies recent travel. Pertinent medical history. PAST MEDICAL HISTORY Diagnosis Date - Allergic rhinitis Dr. Vick - Angioedema of lips Dr. Vick (tongue and lip swelling) - Cellulitis and abscess of unspecified site from ruptured appendix (March 2011--resolved) - Urticaria Dr. Vick ALLERGIES Morphine MEDICATIONS Current Outpatient Prescriptions: PLUS, CALCIUM CARB, 27 mg iron- [address] (PROTONIX) 40 mg tablet amoxicillin (POLYMOX, AMOXIL) 500 mg capsule Take 1 capsule by mouth three times daily for 10 days. No current facility-administered medications for this visit. SOCIAL HISTORY Social History Marital status: Spouse name: Years of education: Number of children: 0 Occupational History Occupation Employer Comment [employer] Social History Main Topics Smoking status: Never Smoker Smokeless status: Never Used Alcohol use: No Drug use: No REVIEW OF SYSTEMS Review of Systems Constitutional: Negative for chills, diaphoresis, fatigue and fever. HENT: Positive for congestion, ear pain, postnasal drip, rhinorrhea and sore throat. Respiratory: Negative for cough, chest tightness, shortness of breath and wheezing. Cardiovascular: Negative for chest pain and palpitations. Gastrointestinal: Negative for abdominal pain, diarrhea, nausea and vomiting. Skin: Negative for rash. Neurological: Negative for dizziness, light-headedness and headaches. OBJECTIVE: BP 120/76 Pulse 93 Temp 36.6 ?C (97.8 ?F) Resp 18 Ht 167.6 cm (5' 6) Wt 81.6 kg (180 lb) SpO2 99% BMI 29.05 kg/m2 Physical Exam Constitutional: She is oriented to person, place, and time. Vital signs are normal. She appears well-developed and well-nourished. Non-toxic appearance. HENT: Head: Normocephalic and atraumatic. Right Ear: External ear and ear canal normal. A middle ear effusion is present. Left Ear: External ear and ear canal normal. A middle ear effusion is present. Nose: Mucosal edema, rhinorrhea and sinus tenderness present. Right sinus exhibits no maxillary sinus tenderness and no frontal sinus tenderness. Left sinus exhibits no maxillary sinus tenderness and no frontal sinus tenderness. Mouth/Throat: Uvula is midline and mucous membranes are normal. Posterior oropharyngeal erythema present. Neck: Normal range of motion. Cardiovascular: Normal rate, regular rhythm and normal heart sounds. Pulmonary/Chest: Effort normal and breath sounds normal. Lymphadenopathy: She has no cervical adenopathy. She has no axillary adenopathy. Neurological: She is alert and oriented to person, place, and time. Skin: Skin is warm, dry and intact. Nursing note and vitals reviewed. ASSESSMENT/PLAN: 1. Bacterial sinusitis - ICD9: 473.9, 041.9, ICD10: J32.9, B96.89 - Will begin treatment with Amoxicillin for 10 days - The patient should also be given warm salt water gargles, throat lozenges and/or OTC throat spray as needed and nasal saline gtts and suction prn for the first 5-7 days of treatment. - Supportive care with plenty of fluids, rest, and analgesia prn. - Follow up in 3-5 days if symptoms persist or worsen. - AMOXICILLIN 500 MG CAPSULE - eat first, yogurt daily Jyothi Yanez, CREDIT REVIEW MANAGER.LICENSED MORTGAGE LOAN OFFICER (ROM) RUPTURE OF Collected: 01/10/2018 Status: F Source: [facility] 3:20 PM [facility] REPOSITORY Order Comment: STAT. CALL RESULTS TO OFFICE [phone] TYPE CODE TESTS RESULT OUT OF RANGE REFERENCE UNITS LAB L205.1310 Negative Normal ROM Negative Result Comment: RESULTS CALLED TO FATMATA GOMES AT 'S OFFICE 01/10/18 1632 Seb Figueroa. REPORT READ BACK BY SAME . Amniotic fluid not present indicates No Rupture of Membranes at time of specimen collection. Performed By: #### L205.1000 #### [facility] [address] [place], [place], [address] GESTATIONAL GTT 3HR Collected: 12/21/2017 Status: F Source: MULU 100G 7:00 AM [facility] REPOSITORY Order Comment: Is Patient Fasting? Y TYPE CODE TESTS RESULT OUT OF RANGE REFERENCE UNITS LAB L501.0650 <105 mg/dL Normal GLU 84 GTT-FASTING Result Comment: GLUCOSE TOLERANCE TEST FOR Reference Interval GESTATIONAL DIABETES Fasting <105 mg/dL 1 hour <190 mg/dl 2 hour <165 mg/dl 3 hour <145 mg/dl LAB L501.0660 <190 mg/dL High GLU GTT- 1HR 193 LAB L501.0680 <145 L Normal GLU GTT- 3HR 120 LAB L501.0670 <165 mg/dL Normal GLU GTT- 2HR 147 Performed By: #### L500.4710 #### [facility] [address] [facility]. [place], [place], [address] ALLERGIES ALLERGIES DATE TYPE / CODE NAME / CODE REACTION SEVERITY SOURCE 02/19/2018 Drug morphine/[id number] Hives Unknown [facility] Allergy/416 1545(RXNORM) [facility] 705825(SNOM Repository ED CT) 04/07/2011 DRUG MORPHINE SWELLING [facility] INGREDI/[address] 347347(SNOM Repository ED CT) ENCOUNTERS ENCOUNTERS ADMIT/DISCHARGE ACCOUNT ADMITTING ENCOUNTER LOCATION SOURCE NUMBER CLASS 10/07/2018 [id number] [facility] ing:WOBLAB Repository 09/23/2018 [id number] [facility] ing:LABSPEC Repository 08/31/2018 [id number] [facility] ing:LABSPEC Repository 07/13/2018/08/04/20 [id number] Ambulatory [address] Repository 05/06/2018/05/09/20 [id number] Ambulatory [address] Repository 02/19/2018/02/22/20 [id number] Conrado Sullivan Inpatient [address] ing:WPRoom: Repository [id number]: 1 02/11/2018 [id number] [facility] ing:LABSPEC Repository 02/02/2018 [id number] [facility] ing:LABSPEC Repository 01/28/2018/02/01/20 [id number] Ambulatory [address] Repository 01/10/2018 [id number] [facility] ing:LABSPEC Repository 12/21/2017 [id number] [facility] ing:LAB Repository PAYERS PAYERS ENCOUNTER GUARANTOR PAYER SUBSCRIBER SOURCE 10/07/2018 PROSPER Rea Primary LAURIE Mulu [id number] FIVE Insurance:MEDICAL SAVELDOB: Community PTS [id number] [address]Rib: Number: Repository [id number] (HP) Date:4669-09-22ML [address] [place] [phone]: 10/07/2018 Secondary NOT GIVENUNK [place] Insurance:SELF PAY [facility] Number: Effective Repository Date:2018-10-07 09/23/2018 PROSPER Rea Primary LAURIE Hardwick [id number] FIVE Insurance:MEDICAL SAVELDOB: Community PTS [address]10-16[facility] [address]Non: Number: Repository [id number] (HP) Date:8969-52-22CU [address] [place] [phone]: 09/23/2018 Secondary NOT GIVENUNK Mulu Insurance:SELF PAY [facility] Number: Effective Repository Date:2018-09-23 08/31/2018 PROSPER Rea Primary LAURIE Hardwick [id number] FIVE Insurance:MEDICAL SAVELDOB: Community PTS [address]10[address]16[facility] [address]Ncf: Number: Repository [id number] (HP) Date:1591-33-82GF [address] [place], [place] [address]WP: 08/31/2018 Secondary NOT GIVENUNK Mulu Insurance:SELF PAY [facility] Number: Effective Repository Date:2018-08-31 02/19/2018 PROSPER Rea Primary LAURIE Hardwick [id number] [place] Insurance:MEDICAL SAVELDOB: [address]16[email or web address] [address]Iyp: (330) Number: Repository [phone] () [id number] Date:1468-29-17DR [address] [place] [phone]: 02/19/2018 Secondary NOT GIVENUNK Terry Insurance:SELF PAY [facility] Number: Effective Repository Date:2017-12-21 02/11/2018 PROSPER Rea Primary LAURIE Hardwick [id number] [place] Insurance:MEDICAL Community [facility] [address]Dvy: [phone]) Number: Repository [phone] () [id number] Date:3084-92-74WU [address] [place] [phone]: 02/11/2018 Secondary NOT GIVENUNK Mulu Insurance:SELF PAY [facility] Number: Effective Repository Date:2018-02-11 02/02/2018 PROSPER Rea Primary LAURIE Sparksoster [id number] [place] Insurance:MEDICAL [facility] [address]Nmh: (330) Number: Repository [phone] () [id number] Date:1204-37-55ID [address] [place] [phone]: 02/02/2018 Secondary NOT GIVENUNK Mulu Insurance:SELF PAY [facility] Number: Effective Repository Date:2018-02-02 01/10/2018 PROSPER Rea Primary LAURIE Sparksoster [id number] [place] Insurance:[facility] [address]Dqn: (330) Number: Repository [phone] () [id number] Date:9420-95-69KC [address] [place] [phone]: 01/10/2018 Secondary NOT GIVENUNK Terry Insurance:SELF PAY [facility] Number: Effective Repository Date:2018-01-10 12/21/2017 PROSPER Rea Primary LAURIE Hardwick [id number] [place] Insurance:[facility] [address]Hzo: [phone]) Number: Repository [phone] () [id number] Date:0662-14-70TR [address] [place] [phone]: 12/21/2017 Secondary Reece Walker: [place] Insurance:[facility] [id number] Community [id number] Number: [facility] [id number] Repository Date:5301-16-23JM [address] [address] [address]FO: 12/21/2017 Tertiary NOT GIVENUNK Terry Insurance:SELF PAY [facility] Number: Effective Repository Date:2017-12-15
== END ==
PROVIDERS: Visit Provider Obstetrics & Gynecology
DX: Z34.81 Encounter for supervision of other normal pregnancy, first trimester (principal)
CPT/HCPCS: 87491; 87591

== ENCOUNTER → 2018-10-07 09:26 | Outpatient (CLI) | payer OTHER, SELFPAY ==
[2018-10-07 11:01] LABS: Color, Urine Yellow (Yellow); Glucose, Dipstick Normal (Normal); Ketone-Dipstick Negative (Negative); Leukocyte Esterase-Dipstick Negative /ul (Negative); Nitrite-Dipstick Negative (Negative); Occult Blood-Urine Negative /ul (Negative); Protein-Dipstick Negative (Negative); Urine Bilirubin Dipstick Negative (Negative); Urine Clarity Sl. Cloudy (Clear); Urine Urobilinogen Normal (Normal); Urine pH 6.5 (5.0 - 8.0)
[2018-10-07 11:03] LABS: Absolute Lymphocyte Count 1.76 X10^3/ul (0.83-4.51); Basophil# 0.01 X10^3/uL; Basophil% 0.2 % (0-1); Eosinophils% 1.6 % (0-5); Hematocrit 34.4 % (37-47); Hemoglobin 11.4 g/dl (12.0-15.0); Lymphocyte # 1.76 X10^3/ul (4.0); Mean Corp Hgb Conc 33.1 g/gl (32-36); Mean Corpuscular Hgb 28.6 pg (27.0-32.0); Mean Corpuscular Volume 86.2 fL (81-99); Mean Platelet Vol. 10.7 fl (6.2-12.0); Monocyte# 0.44 X10^3/uL; Neutrophil # 3.97 X10^3/uL (2.7-7.7); POSITIVE COUNT NO; POSITIVE DIFFERENTIAL NO; POSITIVE MORPHOLOGY NO; Platelet Count 243 K/mm3 (150-450); RBC Distribution Width CV 12.6 % (11.6-14.6); RBC Distribution Width SD 39.7 fl (35.1-43.9); Red Blood Count 3.99 M/mm3 (4.2-5.4); White Blood Count 6.3 K/mm3 (4.4-11.0)
[2018-10-07 11:21] LABS: Amphetamine Urine VISTA NEGATIVE (<1000 ng/mL); Barbiturate Urine VISTA NEGATIVE (< 200 ng/mL); Benzodiazepine Urine VISTA NEGATIVE (< 200 ng/mL); Cocaine Urine VISTA NEGATIVE (< 300 ng/mL); Ecstacy Urine VISTA NEGATIVE (< 500 ng/mL); Methadone Urine VISTA NEGATIVE (< 300 ng/mL); PCP Urine VISTA NEGATIVE (< 25 ng/mL); THC Urine VISTA NEGATIVE (< 50 ng/mL); Vista UDS pH Range 7
[2018-10-07 11:23] LABS: Thyroid Stim Hormone (TSH) 0.69 uIU/mL (0.358-3.74)
[2018-10-07 12:00] LABS: HIV - WCH Non-Reactive (Nonreactive); Rubella IgG 107.4 IU/mL
[2018-10-07 12:03] LABS: COTININE Drug Screen Negative (<200 ng/mL)
[2018-10-09 11:14] LABS: HEPATITIS B SURFACE AG Negative (Negative); Hep C Antibodies 0.2 s/co ratio (0.0-0.9); V-Zoster IgG (Immunity) 3478 index (Immune >165)
[2018-10-14 01:40] LABS: Prenatal RPR NONREACTIVE (NONREACTIVE)
== END ==
PROVIDERS: Visit Provider Obstetrics & Gynecology
DX: Z34.81 Encounter for supervision of other normal pregnancy, first trimester (principal)
CPT/HCPCS: 36415; 80307; 81002; 84443; 85025; 86703; 86762; 86787; 86803; 87340

== ENCOUNTER → 2019-02-22 08:37 | Outpatient (CLI) | payer OTHER, SELFPAY ==
[2019-02-22 10:46] LABS: Glucose Challenge Gest 1H 50g 118 mg/dL (70-140)
[2019-02-22 11:01] LABS: Hematocrit 33.8 % (37-47); Hemoglobin 10.9 g/dl (12.0-15.0); Mean Corp Hgb Conc 32.2 g/gl (32-36); Mean Corpuscular Hgb 28.1 pg (27.0-32.0); Mean Corpuscular Volume 87.1 fL (81-99); Mean Platelet Vol. 11.1 fl (6.2-12.0); Platelet Count 249 K/mm3 (150-450); RBC Distribution Width CV 12.6 % (11.6-14.6); RBC Distribution Width SD 39.1 fl (35.1-43.9); Red Blood Count 3.88 M/mm3 (4.2-5.4); Scan Indicated on CBC? Y/N NO; White Blood Count 8.5 K/mm3 (4.4-11.0)
== END ==
PROVIDERS: Visit Provider Obstetrics & Gynecology
DX: Z34.83 Encounter for supervision of other normal pregnancy, third trimester (principal)
CPT/HCPCS: 36415; 82950; 85027

== ENCOUNTER → 2019-04-18 11:34 | Outpatient (CLI) | payer OTHER, SELFPAY | PROVIDERS: Visit Provider Obstetrics & Gynecology | DX: Z36.85 Encounter for antenatal screening for Streptococcus B (principal) | CPT/HCPCS: 87081 ==

== ENCOUNTER 2019-05-10 07:00 | Inpatient (IN) | payer OTHER, SELFPAY ==
[2019-05-10] MEDS: Lactated Ringers 1,000 ML 50 ML IV ×4 (07:35→13:40)
[2019-05-10] MEDS: Oxytocin 30 units/NS 500 ml 30 UNITS/500 ML IV.SOLN IV (07:48)
[2019-05-10 07:50] VITALS: BMI 30.8
[2019-05-10 07:50] LABS: Absolute Lymphocyte Count 1.72 X10^3/uL (0.83-4.51); Absolute Neutrophil Count 5.7 X10^3/uL (2.0-7.7); Basophil# 0.02 X10^3/uL; Basophil% 0.2 % (0-1); Eosinophil# 0.06 X10^3/uL; Eosinophils% 0.7 % (0-5); Hematocrit 32.4 % (37-47); Hemoglobin 10.7 g/dL (12.0-15.0); Lymphocyte # 1.72 X10^3/ul (4.0); Lymphocyte % 21.2 % (19-41); Mean Corpuscular Hgb 28.8 pg (27.0-32.0); Mean Corpuscular Volume 87.1 fL (81-99); Mean Platelet Vol. 10.7 fl (6.2-12.0); Monocyte# 0.59 X10^3/uL; Monocyte% 7.3 % (0-10); NRBC Flagged by Analyzer 0 % (0-5); Neutrophil # 5.67 X10^3/uL (2.7-7.7); Neutrophil % 69.9 % (47-70); Platelet Count 215 K/mm3 (150-450); RBC Distribution Width CV 13.2 % (11.6-14.6); RBC Distribution Width SD 41.5 fl (35.1-43.9); Red Blood Count 3.72 M/mm3 (4.2-5.4); White Blood Count 8.1 K/mm3 (4.4-11.0)
[2019-05-10] MEDS: fentaNYL-bupivacaine (epidural) 100 ML BAG EPIDURAL ×2 (10:45→15:52)
[2019-05-10] MEDS: Acetaminophen 325 MG Tablet PO ×2 (11:31→15:54)
[2019-05-10] MEDS: Ondansetron 4 MG/2 ML Vial IV ×2 (13:51→18:02)
--- NOTE | 2019-05-10 16:22 | HP.PCM_ITS ---
History and Physical Date of Admission: 05/10/19 OB HISTORY AND PHYSICAL EXAMINATION History of this : 28 yo female Ab0 with EDC 05/17/2019 by 8 weeks 3 days Ultrasound, presents to Labor and Delivery at 39 wk EGA for induction of labor with favo rable cervix. Having increased contractions in last days. Uncomfortable. care remarkable for - 1.) Uncertain immunity to Chickenpox -- IgG POSITIVE 2.) GDM first 3.) MSAFP and CF testing declined Pertinent Past Medical History: Childbirth. Allergies: Morphine Medications: During - ferrous gluconate 324 mg (37.5 mg iron) tablet; ; Vitamin 27 mg iron-0.8 mg tablet; Tamiflu 75 mg capsule; Zofran 4 mg tablet; Protonix 40 mg tablet,delayed release Review of Systems: Non-contributory PHYSICAL EXAMINATION General Appearance: 28 yo female in no acute distress Vital Signs: AF, VSS Heart: RRR without rubs or gallops Lungs: CTA x 2 Breasts: deferred Abdomen: gravid Pelvis: Cervix: 4/75/-2 AROM clear fluid Presentation: cephalic AGA Movement: present Heart: present Category I tracing. Impression /Plan: Intrauterine female at 39 wk for induction of labor. AROM and Pitocin. Epidural planned. Anticipate . . See Progress Notes for Changes: Physician's Signature: Román Brandt MD 05/10/19 1630 Patient seen and reexamined. See progress notes for changes.
[2019-05-10] MEDS: Oxytocin 30 units/NS 500 ml 30 UNITS/500 ML IV.SOLN 334 UNITS IV (19:49)
--- NOTE | 2019-05-10 19:59 | PCM.OPRPT ---
Vaginal Delivery Maternal Presentation: Elective Induction 39 wk discomfort. Method of Induction: Pitocin, Amniotomy Amniotic Membrane Rupture Type: Artificial Amniotic Fluid Description: Clear Final PELON: 05/17/19 Final PELON Source: US <20 weeks Gestational age: 39 Weeks and 0 Days Date of Procedure: 05/10/19 Pre-Operative Diagnosis: 39 wk induction Post-Operative Diagnosis: same Surgery/ Procedure Performed: Vacuum Assisted Vaginal Delivery - due to maternal back pain with pushing. Type of Anesthesia: Epidural Description of Procedure: Vacuum assisted vaginal delivery +2 station, epidural in place, Champagne in place. due to maternal back pain, exhaustion with pushing. Kiwi vacuum single pull in green zone resulted in delivery of a mccabe viable male Vtx delivered GAURANG. Over intact perineum to lacerations. No nuchal cord noted. shoulders delivered easily to maternal abdomen. delayed cord clamp and then clamped times two and cut. Ap 8/9 PP exam 2nd deg perineal laceration noted, repaired under epidural to hemostatic and intact with 3-0 Vicryl Placenta delivered by spont expulsion expression. 3V cord, normal appearing and intact with trailing membranes. Pt and tolerated delivery well. to recovery , stable condition Raytec and needle counts correct times two. Presentation: Vertex, GAURANG Placental Delivery Description: Spontaneous, Expressed Placenta Disposition: [facility] Cord Vessel Description: 3 Vessels Cord Entanglement: None Drain: Champagne to straight drain Estimated Blood Loss: 300 Infant A gender: Male (1 minute): 8 (5 minute): 9 Episiotomy Description: None Laceration: Midline, Perineal Extension/lac, 2nd degree Medications given after delivery: IV Pitocin Complications: None
[2019-05-10] MEDS: Oxytocin 30 units/NS 500 ml 30 UNITS/500 ML IV.SOLN 167 UNITS IV (20:20)
[2019-05-10] MEDS: Ketorolac 30 MG/ML Syringe IV (20:36)
--- NOTE | 2019-05-10 20:50 | DCINST_ITS ---
Discharge Diet: No Restrictions Discharge Activity: May Shower, May Take a Tub Bath May resume sexual activity in: 4-6 weeks Additional Activity Instructions:: Nothing in the vagina for 4-6 weeks. You may return to work/school in 6 weeks. Additional Instructions: If you experience any of the following, contact your healthcare provider. * Bleeding that soaks a pad every hour for 2 hours * Fever 100.4 or higher * Unrelieved abdominal pain * Problems urinating (including inability to urinate or burning while urinating). * Visual changes * Severe headache * Flu-like symptoms * Pain or redness in one of both of your breasts * Pain, warmth, tenderness or swelling in your legs, especially the calf area * Frequent nausea and vomiting * Symptoms of depression or anxiety If you experience any of the following, call 911 or go to the nearest Emergency Room. * Chest pain * Problems breathing * Seizure activity * Partial or complete paralysis of a body part, slurred speech, weakness or drooping of the face, or a sudden inability to walk or hold your balance Allergies/Adverse Reactions: Allergies morphine Allergy (Verified 05/10/19 07:49) Hives Medications to take at Discharge Ferrous Sulfate [Iron] 325 tab PO BID 04/25/16 Vit No.130/Iron/Folic [ Tablet] 1 tab PO DAILY 04/25/16 Calcium Carbonate [Tums] 1,000 mg PO BIDCM 06/06/16 Please Follow Up With: Roel De Los Santos MD - [phone] When: Call to make an appointment with your doctor in 6 weeks. Primary Care Physician: Catherine Adair MD [Primary Care Provider] - Test Results: Test results from this visit will be discussed in further detail at your follow- up appointment, if applicable. Proposed Discharge Date: 05/12/19
--- NOTE | 2019-05-10 20:50 | PCM.DCVAG ---
Discharge Diet: No Restrictions Discharge Activity: May Shower, May Take a Tub Bath May resume sexual activity in: 4-6 weeks Additional Activity Instructions:: Nothing in the vagina for 4-6 weeks. You may return to work/school in 6 weeks. Additional Instructions: If you experience any of the following, contact your healthcare provider. Bleeding that soaks a pad every hour for 2 hours Fever 100.4 or higher Unrelieved abdominal pain Problems urinating (including inability to urinate or burning while urinating). Visual changes Severe headache Flu-like symptoms Pain or redness in one of both of your breasts Pain, warmth, tenderness or swelling in your legs, especially the calf area Frequent nausea and vomiting Symptoms of depression or anxiety If you experience any of the following, call 911 or go to the nearest Emergency Room. Chest pain Problems breathing Seizure activity Partial or complete paralysis of a body part, slurred speech, weakness or drooping of the face, or a sudden inability to walk or hold your balance Allergies/Adverse Reactions: Allergies morphine Allergy (Verified 05/10/19 07:49) Hives Medications to take at Discharge Ferrous Sulfate [Iron] 325 tab PO BID 04/25/16 Vit No.130/Iron/Folic [ Tablet] 1 tab PO DAILY 04/25/16 Calcium Carbonate [Tums] 1,000 mg PO BIDCM 06/06/16 Please Follow Up With: Roel De Los Santos MD - [phone] When: Call to make an appointment with your doctor in 6 weeks. Primary Care Physician: Catherine Adair MD [Primary Care Provider] - Test Results: Test results from this visit will be discussed in further detail at your follow-up appointment, if applicable. Proposed Discharge Date: 05/12/19
[2019-05-10] MEDS: Acetaminophen 500 MG Tablet 1000 MG PO (22:16)
[2019-05-10 23:29] VITALS: BP 123/73; PULSE 110; RESP 16; TEMP 36.5; O2SAT 98
[2019-05-10] MEDS: oxyCODONE 5 MG Tablet PO (23:32)
[2019-05-11] MEDS: oxyCODONE 5 MG Tablet PO ×2 (00:54→12:44)
[2019-05-11 04:30] VITALS: BP 129/72; PULSE 106; RESP 16; TEMP 36.5; O2SAT 98
[2019-05-11] MEDS: Ibuprofen 600 MG Tablet PO ×3 (04:41→20:44)
[2019-05-11 08:00] VITALS: BP 114/65; PULSE 84; RESP 16; TEMP 36.4
--- NOTE | 2019-05-11 08:24 | PCM.PN.OB ---
Subjective: PPD#1 Vacuum assisted vaginal delivery Doing OK. Back pain imrpoving. Difficult epidural, two attempts. Reviewed s/sx of spinal COLBY. Bottle feeding. Minimal pain otherwise. no concerns voiced. - Physical Exam General: Alert, Oriented x3, Cooperative, No apparent distress HEENT: Atraumatic, EOMI Neck: Supple Abdomen: Soft - fundus at inferior to umbilicus Neurological: Cranial nerves II-XII grossly intact Psych/Mental Status: Normal Affect Vital Signs Temp Pulse Resp BP Pulse Ox 97.7 F L 106 H 16 129/72 H 98 05/11/19 04:30 05/11/19 04:30 05/11/19 04:30 05/11/19 04:30 05/11/19 04:30 Oxygen Delivery Method Room Air Weight: 86.636 kg Body Mass Index (BMI) 30.8 Intake and Output for Last 24 Hours 05/09/19 05/10/19 05/11/19 23:59 23:59 23:59 Intake Total 4411 / 4411 Output Total 1800 / 1800 500 / 500 Balance 2611 / 2611 -500 / -500 Laboratory Tests Past 24 Hrs 05/10/19 07:35 Blood Type B POSITIVE Antibody Screen NEGATIVE Medical Necessity - Tobacco Use Smoking Status: Never smoker Assessment/Plan PPD#1 Vacuum assisted vaginal delivery Doing well. Continued upper back pain, but improved slightly with NSAIDs and with K pad. Continue routine care
[2019-05-11] MEDS: Ferrous Sulfate 325 MG Tablet PO ×2 (08:34→18:27)
[2019-05-11] MEDS: Prenatal Vits Tablet 1 TABLET PO (08:34)
--- NOTE | 2019-05-11 09:16 | NURSING ---
blood patch done this am per . pt states headache gone as he was doing the procedure. pt laying flat after procedure and per his order.
[2019-05-11] MEDS: Acetaminophen 500 MG Tablet 1000 MG PO (11:17)
[2019-05-11 12:00] VITALS: BP 123/75; PULSE 92; RESP 16; TEMP 36.3; O2SAT 99
[2019-05-11 17:18] VITALS: BP 148/61; PULSE 92; RESP 16; TEMP 36.5; O2SAT 99
[2019-05-11 21:37] VITALS: BP 108/62; PULSE 73; RESP 18; TEMP 36.7
[2019-05-12 03:21] VITALS: BP 117/60; PULSE 83; RESP 18; TEMP 36.8
[2019-05-12] MEDS: Ibuprofen 600 MG Tablet PO ×2 (03:23→09:46)
[2019-05-12 08:30] VITALS: BP 118/75; PULSE 71; RESP 16; TEMP 36.6; O2SAT 97
--- NOTE | 2019-05-12 08:31 | PCM.PN.OB ---
Subjective: PPD#2 Vaginal delivery. Vacuum assisted Bottle feeding. Doing well. Upper back pain much improved COLBY gone after Epidural blood patch - Physical Exam General: Alert, Oriented x3, Cooperative, No apparent distress HEENT: Atraumatic, EOMI Neck: Supple Abdomen: Soft - fundus firm NT inferior to umbilcus Neurological: Cranial nerves II-XII grossly intact Psych/Mental Status: Normal Affect Vital Signs Temp Pulse Resp BP Pulse Ox 98.2 F 83 18 117/60 99 05/12/19 03:21 05/12/19 03:21 05/12/19 03:21 05/12/19 03:21 05/11/19 17:18 Oxygen Delivery Method Room Air Weight: 86.636 kg Body Mass Index (BMI) 30.8 Intake and Output for Last 24 Hours 05/10/19 05/11/19 05/12/19 23:59 23:59 23:59 Intake Total 4411 / 4411 Output Total 1800 / 1800 500 / 500 Balance 2611 / 2611 -500 / -500 Medical Necessity - Tobacco Use Smoking Status: Never smoker Assessment/Plan PPD#2 Vacuum assisted vaginal delivery Stable . Dischg home today. RTO In 6 wk for pp check, prn sooner.
[2019-05-12] MEDS: Ferrous Sulfate 325 MG Tablet PO (09:47)
== END 2019-05-12 10:40 | disposition home or self-care (01) | DRG 807 ==
PROVIDERS: Admitting Provider Obstetrics & Gynecology; Family Provider Internal Medicine; PCP Internal Medicine; Referring Provider Obstetrics & Gynecology; Visit Provider Obstetrics & Gynecology
DX: O99.02 Anemia complicating childbirth (principal); D64.9 Anemia, unspecified; O89.4 Spinal and epidural anesthesia-induced headache during the puerperium; O70.1 Second degree perineal laceration during delivery; O75.89 Other specified complications of labor and delivery; M54.6 Pain in thoracic spine; Z79.899 Other long term (current) drug therapy; Z3A.39 39 weeks gestation of pregnancy; Z37.0 Single live birth
CPT/HCPCS: 59025; 59050; 85025; 86850; 86900; 99218; J7120; G0378; J2405

== ENCOUNTER 2019-05-13 14:04 | Emergency (ER) | payer OTHER, SELFPAY ==
[2019-05-13 14:05] VITALS: BP 153/97; PULSE 80; RESP 16; TEMP 36.7; O2SAT 98; BMI 28.6
--- NOTE | 2019-05-13 15:03 | ED.VISSUMM ---
- ER Visit Summary Date of Service: 05/13/19 Chief Complaint: Positional headache after an epidural History of Present Illness: The patient is a 28 F G3, P3 Ab0. Patient just delivered a baby boy on Wednesday. She did well was discharged on Wednesday. She did have a post epidural headache and received a blood patch. She was doing well and headache seemed to return it is positional. They wanted to be reevaluated. During the she had no eclampsia or preeclampsia. She had no blood pressure issues. She denies any fever. She denies any neck pain. She denies any neurological symptoms. There is no family history of intracranial bleeds or aneurysms. She has had head trauma and is on no blood thinners. She denies any sinus congestion. Physical Examination: Young female coming by her vital signs are stable initial blood pressure 133/97 that will be rechecked. Pulse ox 90% room air no signs of hypoxia. H EENT exam normal. Neck completely nontender. No lymphadenopathy. No meningismus. Able to touch chin to chest. No muscular skeletal neck pain. Lungs clear to auscultation bilaterally. Heart regular rhythm no murmur. Abdomen soft nontender. Extremities moves all 4. Neurovascular intact. 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 Dorsi plantarflexion intact. Back nontender. Epidural site clean and dry. Neurologically she is awake alert with no focal motor or sensory deficits. NIH score of 0. Test Results: After patient's blood pressure remained elevated we did do a -induced hypertension work-up. Her CBC showed a white count 8. Hemoglobin 9.6 which is around her baseline. Chemistries were normal with a normal creatinine. Liver enzymes were normal. UA showed some blood but no protein. Uric acid was normal at 5. Multiple repeat exams the patient currently at 1942 PM has a blood pressure 138/93. Emergency Department Course and Treatment: Historically and clinically the patient appears to have a post epidural headache. Currently at this time she feels very well. It is positional. She will be treated with IV caffeine and fluids and Toradol and reassess. Blood pressure will be rechecked. Treatment Plan: I spoke to the patient's MEDIA REPORTER physician Dr. Lisa Brandt patient will be started on Procardia XL I will have her recheck her blood pressure tomorrow before starting it. And follow-up with Dr. Brandt office on Wednesday. Disposition: Discharge Impression: Post epidural headache Rule out -induced hypertension This note was generated with [employer] dictation software. It may contain incorrect words, spelling, and punctuation that were not noted in review of the chart prior to signing ED Disposition - Plan for ED Patient: Referrals: Catherine Adair MD [Primary Care Provider] -
[2019-05-13] MEDS: Ketorolac 30 MG/ML Syringe IV (15:15)
[2019-05-13 17:37] VITALS: BP 150/97; PULSE 56; RESP 18; O2SAT 99
--- NOTE | 2019-05-13 17:38 | ED.RN ---
pt states neck pain is improved but headache remains the same. bp remains elevated. dr martinez
[2019-05-13 18:19] LABS: Absolute Lymphocyte Count 1.24 X10^3/uL (0.83-4.51); Absolute Neutrophil Count 6.1 X10^3/uL (2.0-7.7); Basophil# 0.03 X10^3/uL; Basophil% 0.4 % (0-1); Eosinophil# 0.14 X10^3/uL; Eosinophils% 1.7 % (0-5); Hemoglobin 9.6 g/dL (12.0-15.0); Lymphocyte # 1.24 X10^3/ul (4.0); Lymphocyte % 15.4 % (19-41); Mean Corpuscular Hgb 28.5 pg (27.0-32.0); Mean Platelet Vol. 11.5 fl (6.2-12.0); Monocyte# 0.44 X10^3/uL; Monocyte% 5.5 % (0-10); NRBC Flagged by Analyzer 0 % (0-5); Neutrophil # 6.14 X10^3/uL (2.7-7.7); Platelet Count 215 K/mm3 (150-450); RBC Distribution Width CV 13.2 % (11.6-14.6); RBC Distribution Width SD 42.7 fl (35.1-43.9); Red Blood Count 3.37 M/mm3 (4.2-5.4); White Blood Count 8.1 K/mm3 (4.4-11.0)
[2019-05-13 18:32] LABS: ALB/GLOB Ratio 0.7 RATIO (0.9-2.4); AST(SGOT) 32 U/L (15-37); Alanine Aminotransfer ALT/SGPT 29 U/L (13-56); Albumin, Serum 2.8 g/dL (3.2-5.0); Alkaline Phosphatase 99 U/L (45-117); Anion Gap 10 (5-15); BUN 7 mg/dL (7-18); BUN/Creat Ratio 9.8 RATIO (10-20); Calcium,Total 8.7 mg/dL (8.5-10.1); Chloride 107 mmol/L (98-107); Creatinine, Serum 0.71 mg/dL (0.55-1.02); EST Glomerular Filtration Rate 104 mL/min (>60); Est Glom Filt Rate - Afr Amer 126 mL/min (>60); Estimated Creatinine Clearance 111.42 ml/min; Globulin 3.8 g/dL (2.2-4.2); Glucose 93 mg/dL (74-106); Potassium 3.6 mmol/L (3.5-5.1); Protein, Total 6.6 g/dL (6.4-8.2); Sodium Level 142 mmol/L (136-145); Uric Acid 5.8 mg/dL (2.6-6.0)
[2019-05-13 19:00] VITALS: BP 154/92; PULSE 63; RESP 16; O2SAT 99
[2019-05-13 19:02] LABS: Color, Urine Straw (Yellow); Glucose, Dipstick Normal (Normal); Ketone-Dipstick Negative (Negative); Leukocyte Esterase-Dipstick 25 /ul (Negative); Nitrite-Dipstick Negative (Negative); Occult Blood-Urine 250 /ul (Negative); Protein-Dipstick Negative (Negative); Specific Gravity, Urine 1.005 (1.002-1.030); Urine Bilirubin Dipstick Negative (Negative); Urine Clarity Clear (Clear); Urine Urobilinogen Normal (Normal)
[2019-05-13 19:10] LABS: Red Blood Cells-Urine 10-25 SEEN /hpf (0-5); Squamous Epithelial Cells - UA 0-5 SEEN /hpf (5-10); White Blood Cells 5-10 SEEN /hpf (0-5)
[2019-05-13 19:11] LABS: Bacteria RARE /hpf (None Seen); Mucous, Urine RARE /hpf (<or=2+)
[2019-05-13 20:00] VITALS: BP 143/90; PULSE 55; RESP 16; O2SAT 100
--- NOTE | 2019-05-13 20:04 | DCINST.ED_ITS ---
ED Disposition - Plan for ED Patient: Disposition: Home or Assisted Living Instructions: HEADACHE After Spinal Tap (with Patch) Prescriptions: Nifedipine [Procardia Xl] 30 mg PO DAILY #30 tab.er.24 Prescription Printed Referrals: Lisa Brandt MD [STAFF PHYSICIAN] - 2 Days Additional Instructions: With your elevated blood pressure were concerned you may have a - induced hypertension. I discussed this with Dr. Brandt and she wanted me to start you on the blood pressure medication Procardia XL. Do not start until tomorrow. Check your blood pressure before starting the medication. If your systolic blood pressure is not higher than 130 or your diastolic is not higher than [address] Brandt before starting the medication. Follow up with brenda office on Wednesday.
[2019-05-13 20:20] VITALS: BP 143/90; PULSE 55; RESP 16; O2SAT 99
== END 2019-05-13 20:23 | disposition home or self-care (01) ==
PROVIDERS: Emergency Provider Emergency Medicine; Family Provider Internal Medicine; PCP Internal Medicine
DX: O89.4 Spinal and epidural anesthesia-induced headache during the puerperium (principal); O13.5 Gestational [pregnancy-induced] hypertension without significant proteinuria, complicating the puerperium; Z79.899 Other long term (current) drug therapy
CPT/HCPCS: 80053; 81001; 84550; 85025; 96365; 96366; 96375; 99285; J7030; J7040; A4216

== ENCOUNTER 2019-05-14 13:56 | Emergency (ER) | payer OTHER, SELFPAY ==
[2019-05-13 14:05] VITALS: BMI 28.6
[2019-05-14 13:57] VITALS: BP 134/84; PULSE 132; RESP 20; TEMP 36.6; O2SAT 100; BMI 29.0
[2019-05-14] MEDS: 0.9% Normal Saline 1,000 ML 1000 ML IV (14:45)
[2019-05-14] MEDS: Ketorolac 15 MG/ML Vial IV (14:45)
[2019-05-14 14:57] VITALS: BP 123/88; PULSE 98; RESP 18; TEMP 36.2; O2SAT 97
--- NOTE | 2019-05-14 15:16 | ED.VIS.GEN ---
History of Present Illness Informant: Patient Narrative: 28-year-old G3, P3 4 days presents with concern for headache. Patient began having a headache following her epidural on Wednesday which was 4 days ago. States that she received a blood patch 3 days ago from anesthesia. Patient did get relief for approximately 24 hours. Was seen here in the emergency department yesterday and given IV fluids, Toradol, and caffeine. Spoke with OB at that time because she had elevated pressure. Preeclampsia work-up was done which was negative for proteinuria. Patient continued to have a headache throughout the night last night. She states that it is not really positional is constant and diffuse. Also does admit to some neck pain. Denies any fever, chills, vision change. Denies any numbness or tingling. Denies any drugs or alcohol. <Chintan Pérez - Last Filed: 05/14/19 17:29> <Olivia Du - Last Filed: 05/14/19 17:59> Chief Complaint: Headache Past Medical History Prior records reviewed: Yes Past Medical History: None Smoking Status: Never smoker <Chintan Pérez - Last Filed: 05/14/19 17:29> <Olivia Du - Last Filed: 05/14/19 17:59> - Allergies and Home Meds Allergies/Adverse Reactions: Allergies morphine Allergy (Verified 05/14/19 14:00) [facility] Primary Care Physician: Lisa Brandt MD [STAFF PHYSICIAN] - Catherine Adair MD [Primary Care Provider] - Review of Systems General: Denies: Chills, Fever, Sweats Eyes: Denies: Visual changes - bilaterally, Diplopia ENT: Denies: Rhinorrhea, Sore throat Cardiovascular: Denies: Chest pain, Palpitations Respiratory: Denies: Dyspnea, Cough, Dyspnea on exertion Gastrointestinal: Denies: Abdominal pain, Nausea, Vomiting, Diarrhea, Melena, Hematochezia Genitourinary: Denies: Dysuria, Hematuria, Frequency Musculoskeletal: Denies: Back pain, Extremity Pain Skin: Denies: Rash, Wounds Neurological: Reports: Headache. Denies: Weakness, Numbness <Chintan Pérez - Last Filed: 05/14/19 17:29> Physical Exam Vital Signs/Narrative: Vital Signs Temp Pulse Resp BP Pulse Ox 05/14/19 14:57 97.2 F L 98 18 123/88 H 97 05/14/19 13:57 98 F 132 H 20 H 134/84 H 100 General: Well nourished, Well developed, No Acute Distress Head: Normocephalic, Atraumatic Eyes: Perrl, EOMI ENT: Moist mucous membranes, No rhinorrhea Neck: Supple, Nontender Cardiovascular: Regular rate, Regular rhythm, No murmurs Respiratory: No distress, CTA bilaterally, Chest nontender Abdomen: Soft, Nontender, Nondistended, Normal bowel sounds Back: Nontender, Normal Inspection Extremities: Nontender, No edema Skin: Normal color, No rash Neurological: Alert, Oriented x3, Cranial nerves II-XII grossly intact, Normal Strength, Normal Sensation Psychological: Normal affect, Normal Mood <Chintan Pérez - Last Filed: 05/14/19 17:29> Vital Signs/Narrative: Vital Signs Temp Pulse Resp BP Pulse Ox 05/14/19 17:11 86 24 H 104/62 99 05/14/19 16:44 98.2 F 71 23 H 116/79 100 05/14/19 14:57 97.2 F L 98 18 123/88 H 97 <Olivia Du - Last Filed: 05/14/19 17:59> Diagnostic/Tx/Re-eval - Medical Decision Making Patient appears well nontoxic. Vital signs within normal limits. Patient is not hypertensive today. Treated with IV caffeine, Toradol, and 1 L normal saline. Spoke with anesthesia who examined the patient at the bedside and did not feel repeat blood patch was indicated at this time. Spoke with PALEOBOT[facility]IST Dr. Littlejohn who examined the patient at the bedside and will write for Flexeril with concern for upper thoracic spasm. No indication for hypertensive medication at this time. Patient will follow-up as an outpatient with [facility]. Asked to return for new or worsening symptoms. Patient agreeable with plan to discharge home in stable condition. <Chintan Pérez - Last Filed: 05/14/19 17:29> - Medical Decision Making Patient seen and evaluated with Dr. Pérez. Patient presents again to the emergency room with post lumbar puncture headache. Patient with normal blood pressure. Physical examination reveals no acute concerns. She was given IV caffeine. Patient was seen and evaluated by both anesthesia as well as Dr. Brandt. She will be discharged home with medications per Dr. Brandt's plan. <Olivia Du - Last Filed: 05/14/19 17:59> ED Disposition <Chintan Pérez - Last Filed: 05/14/19 17:29> <Olivia Du - Last Filed: 05/14/19 17:59> - Plan for ED Patient: Disposition: Home or Assisted Living Diagnosis: Headache Instructions: HEADACHE After Spinal Tap (with Patch) Referrals: Catherine Adair MD [Primary Care Provider] - Lisa Brandt MD [STAFF PHYSICIAN] -
[2019-05-14 16:44] VITALS: BP 116/79; PULSE 71; RESP 23; TEMP 36.8; O2SAT 100
--- NOTE | 2019-05-14 17:10 | NURSING ---
DR BLUM IN ROOM
[2019-05-14 17:11] VITALS: BP 104/62; PULSE 86; RESP 24; O2SAT 99
--- NOTE | 2019-05-14 20:41 | HP.PCM_ITS ---
History and Physical Date of Admission: 05/14/19 Name: PROSPER REA Date of : 1990 HISTORY OF PRESENT ILLNESS: On 05/14/2019, Prosper Rea, a 28 year old female 2 0 0 0 2, presented for: -- Pt with h/o 05/10/19 Vacuum assisted vaginal delivery, male (EB)and noted severe upper back and neck pain with labor, pushing. Now day #4, presents to [facility] emergency dept on both 05/13/19 and on 05/14/19 with CC of headache . She had an epidural for labor, postdural puncture headache treated already during her stay by epidural blood patch. In ED on 05/13/19 PIH labs all WNL and BP slightly elevated. BPs 160/100 and 153/97. Got IV fluids, caffeine and Toradol and some relief of COLBY and was sent home 05/13/19 on Procardia XL 30 mg po daily Returns today with continued headache. Consulted anesthesia and no repeat epidural blood patch recommended. fluids and caffeine offered. She states she has not been able to sleep due to her severe headache. Headache is located both at her neck and upper back and also around her eyes/sinuses. Her BP today is 120's/70-80s. -- headache which began after delivery. Prosper claims it started suddenly. It occurs constantly. It is located in the head and is non-radiating. It is aggravated by none and relieved by none. An associated sign and symptom is had epidural blood patch already. HTN documented in ED. PIH labs all WNL. ALLERGIES: Morphine and Rash MEDICATIONS HISTORY: Current medications prescribed by our practice are: 1. ferrous gluconate 324 mg (37.5 mg iron) tablet, one tab PO twice daily 2. Vitamin 27 mg iron-800 mcg tablet, 1 PO QD 3. Protonix 40 mg tablet,delayed release, one tab PO daily 4. Zofran 4 mg tablet, one tab PO every 6 hours as needed for nausea REVIEW OF SYSTEMS: GENERAL - Denies fever, or chills SKIN - Denies skin changes EYES - Denies visual changes EARS - Denies difficulty hearing NOSE - Denies nasal congestion or bleeding MOUTH - Denies sore throat or difficulty swallowing NECK - Denies pain or swelling RESPIRATORY - Denies shortness of breath or wheezing CARDIOVASCULAR - Denies palpitations or chest pain GASTROINTESTINAL - Denies nausea, vomiting, diarrhea, constipation GENITOURINARY - Denies dysuria, frequency of urination, incontinence of urine MUSCULOSKELETAL - Denies joint or muscle pain NEUROLOGICAL - headache noted for several days, initial improvement with epidural blood patch PSYCHIATRIC - Anxiety ENDOCRINE - Denies heat or cold intolerance, weight loss or gain HEMATO-IMMUNOLOGIC - Denies excessive bleeding with cuts MENSTRUAL HISTORY: LMP Known?- Definite Amount/Duration - 6 days, Regularity - Regular, LMP - 08/09/18, Age Onset Menarche - 15 PHYSICAL EXAMINATION Afebrile BPs 104/62 - 134/84 CONSTITUTIONAL - NAD, well nourished, and well developed HEENT - Normocephalic, PERRLA, EOMI NECK - no nuchal rigidity Tender to palpation over neck and upper mid back. LUNGS - normal respiratory rate and rhythm CARDIAC - Regular rate and rhythm without rubs, murmurs, or gallops ABDOMEN - no masses, no tenderness EXTREMITIES - No edema or calf tenderness NEUROLOGICAL - Cranial nerves II-XII grossly intact PSYCHIATRIC - A and O to time, place, person, mood and affect ASSESSMENT: 1. Gestational [-induced] Hypertension Without Significant Proteinuria, Complicating [place] 2. Headache PLAN BY DIAGNOSIS: 1. Gestational [-induced] Hypertension Without Significant Proteinuria, Complicating [place] and Headache S/P epidural blood patch, Failed caffeine, IV fluids and Toradol Normal PIH labs. BP today is WNL. CC of persistent COLBY Offered: to admit for pain management. Doubt preeclampsia with normal PIH labs and BP wnl today. Headache is periorbital/sinus location, and also pain at neck, upper back. Suspect muscle spasms given pt severe upper back and neck pain during second stage of labor and persistent after delivery. Bottle feeding. Recommended: Tylenol, and add either ibuprofen or Aleve. Flexeril for back spasm tid. Consider massage or chiropractor later this week. Offered admission to hospital for pain control, but declines. Recommended; Sudafed for periorbital headache. IF this and other OTC NSAIDs are not effective for this pain, take Ultram 50 mg po q 6 hr prn. Cautioned to use minimal medication that is effective. Visit approx 20 min with most of the time spent in discussion and counseling.
== END 2019-05-14 17:43 | disposition home or self-care (01) ==
PROVIDERS: Emergency Provider Emergency Medicine; Family Provider Internal Medicine; PCP Internal Medicine
DX: G97.1 Other reaction to spinal and lumbar puncture (principal); Y84.4 Aspiration of fluid as the cause of abnormal reaction of the patient, or of later complication, without mention of misadventure at the time of the procedure; Y92.9 Unspecified place or not applicable; O13.5 Gestational [pregnancy-induced] hypertension without significant proteinuria, complicating the puerperium; M62.830 Muscle spasm of back; M54.2 Cervicalgia; Z88.5 Allergy status to narcotic agent; Z79.899 Other long term (current) drug therapy
CPT/HCPCS: 96361; 96365; 96375; 99281; 99282; J7030; J7040; A4216

== ENCOUNTER 2019-05-17 21:16 | Emergency (ER) | payer OTHER, SELFPAY ==
[2019-05-17 21:17] VITALS: BP 164/96; PULSE 70; RESP 18; TEMP 36.7; O2SAT 99; BMI 28.3
--- NOTE | 2019-05-17 21:48 | ED.DCSUM_ITS ---
History of Present Illness Chief Complaint: Hypertension Informant: Patient, Significant Other Onset: Today Narrative: Patient seen here several times for headache and neck pain recently, over the past 3 days since treating off and on with Flexeril, Tylenol, ibuprofen her headache and neck pain eventually been improved. She had an episode of high blood pressure during 1 of her ER visits but on several rechecks it did come down to 120 systolic. She was prescribed nifedipine as a just in case, her pressure spiked today at 169 systolic so she was advised to take the nifedipine which she did several hours ago for the first time. Her pressure did not come down so it was recommended that she come to the ER for further evaluation. Her [facility] labs were all normal before. She has developed no new symptoms, no blurry vision or swelling in her legs. No confusion, photophobia, nausea, vomiting, shortness of breath. Her vaginal bleeding has continued to improve and she is barely spotting and having no pain. Past Medical History - Allergies and Home Meds Allergies/Adverse Reactions: Allergies morphine Allergy (Verified 05/17/19 21:21) [facility] Primary Care Physician: Lisa Brandt MD [STAFF PHYSICIAN] - 2 Days Past Medical History: None Lives: Spouse/ Significant Other Smoking Status: Never smoker Drugs: None Review of Systems General: Denies: Chills, Fever, Sweats Eyes: Denies: Visual changes - bilaterally, Diplopia ENT: Denies: Rhinorrhea, Sore throat Cardiovascular: Denies: Chest pain, Palpitations Respiratory: Denies: Dyspnea, Cough, Dyspnea on exertion Gastrointestinal: Denies: Abdominal pain, Nausea, Vomiting, Diarrhea, Melena, Hematochezia Genitourinary: Denies: Dysuria, Hematuria, Frequency Musculoskeletal: Reports: Neck pain. Denies: Back pain, Swelling, Extremity Pain Skin: Denies: Rash, Wounds Neurological: Reports: Headache. Denies: Weakness, Numbness Physical Exam Vital Signs/Narrative: Vital Signs Temp Pulse Resp BP Pulse Ox 05/17/19 21:17 98.0 F 70 18 164/96 H 99 Inital Vital Signs reviewed: Yes General: Well nourished, Well developed, No Acute Distress - Well appearing, conversive Head: Normocephalic, Atraumatic Eyes: Perrl - No photophobia, EOMI ENT: Moist mucous membranes, No rhinorrhea Neck: Supple, Nontender Cardiovascular: Regular rate, Regular rhythm, No murmurs Respiratory: No distress, CTA bilaterally, Chest nontender Abdomen: Soft, Nontender, Normal bowel sounds, - - Distended lower abdomen, nontender Back: Nontender, Normal Inspection. Negative for: CVA tenderness Extremities: Nontender, No edema Skin: Normal color, No rash Neurological: Alert, Oriented x3, Cranial nerves II-XII grossly intact, Normal Strength, Normal Sensation, Normal Gait Psychological: Normal affect, Normal Mood Diagnostic/Tx/Re-eval Laboratory Results 05/17/19 05/17/19 05/17/19 22:10 22:20 22:20 WBC 7.1 RBC 3.47 L Hgb 9.8 L Hct 29.9 L MCV 86.2 MCH 28.2 MCHC 32.8 RDW Std Deviation 40.3 RDW Coeff of Mery 12.9 Plt Count 246 MPV 10.8 Immature Gran % (Auto) 1.800 H Neut % (Auto) 57.4 Lymph % (Auto) 29.9 [place] % (Auto) 8.3 Eos % (Auto) 2.0 Baso % (Auto) 0.6 Absolute Neuts (auto) 4.1 Absolute Lymphs (auto) 2.12 Nucleated RBC % 0 Sodium 143 Potassium 3.9 Chloride 110 H Carbon Dioxide 25.0 Anion Gap 8 BUN 12 Creatinine 0.64 Estim Creat Clear Calc 123.61 Est GFR (MDRD) Af Amer 142 Est GFR (MDRD) Non-Af 117 BUN/Creatinine Ratio 18.6 Glucose 81 Uric Acid 5.1 Calcium 8.4 L Total Bilirubin 0.20 AST 26 ALT 44 Alkaline Phosphatase 94 Total Protein 7.0 Albumin 2.9 L Globulin 4.1 Albumin/Globulin Ratio 0.7 L Urine Color Yellow Urine Clarity Sl. Cloudy Urine pH 8.0 Ur Specific [place] 1.010 Urine Protein Negative Urine Glucose (UA) Normal Urine Ketones Negative Urine Occult Blood 150 H Urine Nitrite Negative Urine Bilirubin Negative Urine Urobilinogen Normal Ur Leukocyte Esterase 500 H Urine RBC 5-10 SEEN Urine WBC 25-50 SEEN Ur Squamous Epith Cells 0-5 SEEN Amorphous Sediment 1+ PHOS Urine Bacteria RARE Urine Mucus 0 SEEN - Medical Decision Making Patient was treated with labetalol, her pressure came down to 130/68. Her labs are all within normal limits and there is no proteinuria however her urine does show 500 leukocyte esterase and 25-50 white blood cells, consistent with infection. She has no symptoms of infection. Given her recent delivery, I think it would be reasonable to treat this. No evidence for preeclampsia at this time. I discussed with Dr. Brandt who is in agreement with that, we did send a culture and she will follow-up with her. We will place her on 3 days of Bactrim in addition to labetalol 100 mg twice daily instead of the nifedipine which she should discontinue at the advice of Dr. Brandt. Furthermore, as I discussed with the patient and her , she seems to have had good reason for her headache and neck pain which has been improving. She states that while she was in the hospital for delivery, her epidural accidentally punctured the dura and there was spinal fluid, her headache ensued quickly thereafter and she was given a blood patch. That has been consistently improving, but is still present. She has had no new symptoms and has developed no neurologic symptoms or neck stiffness or objective signs of meningitis. I discussed this with them, that I do not think she needs a head CT at this time, and they agree to follow-up with the aforementioned plan. ED Disposition - Plan for ED Patient: Disposition: Home or Assisted Living Diagnosis: PIH ( induced hypertension), Spinal headache complicating labor and delivery, condition, Lower urinary tract infection Instructions: HYPERTENSION, To Be Confirmed, HEADACHE After Spinal Tap (with Patch) Prescriptions: Labetalol [Trandate (Beta Elmer)] 100 mg PO BID #60 tab Transmission Status: Received by [id number] Referrals: Lisa Brandt MD [STAFF PHYSICIAN] - 2 Days
[2019-05-17 22:34] LABS: Mucous, Urine 0 SEEN /hpf (<or=2+)
[2019-05-17 22:38] LABS: Color, Urine Yellow (Yellow); Glucose, Dipstick Normal (Normal); Ketone-Dipstick Negative (Negative); Leukocyte Esterase-Dipstick 500 /ul (Negative); Nitrite-Dipstick Negative (Negative); Occult Blood-Urine 150 /ul (Negative); Protein-Dipstick Negative (Negative); Urine Bilirubin Dipstick Negative (Negative); Urine Clarity Sl. Cloudy (Clear); Urine Urobilinogen Normal (Normal)
[2019-05-17 22:48] LABS: Absolute Lymphocyte Count 2.12 X10^3/uL (0.83-4.51); Absolute Neutrophil Count 4.1 X10^3/uL (2.0-7.7); Basophil# 0.04 X10^3/uL; Basophil% 0.6 % (0-1); Eosinophil# 0.14 X10^3/uL; Hematocrit 29.9 % (37-47); Hemoglobin 9.8 g/dL (12.0-15.0); Lymphocyte # 2.12 X10^3/ul (4.0); Lymphocyte % 29.9 % (19-41); Mean Corp Hgb Conc 32.8 g/dL (32-36); Mean Corpuscular Hgb 28.2 pg (27.0-32.0); Mean Corpuscular Volume 86.2 fL (81-99); Mean Platelet Vol. 10.8 fl (6.2-12.0); Monocyte# 0.59 X10^3/uL; Monocyte% 8.3 % (0-10); NRBC Flagged by Analyzer 0 % (0-5); Neutrophil # 4.06 X10^3/uL (2.7-7.7); Neutrophil % 57.4 % (47-70); Platelet Count 246 K/mm3 (150-450); RBC Distribution Width CV 12.9 % (11.6-14.6); RBC Distribution Width SD 40.3 fl (35.1-43.9); Red Blood Count 3.47 M/mm3 (4.2-5.4); White Blood Count 7.1 K/mm3 (4.4-11.0)
[2019-05-17 22:59] LABS: Amorphous Sediment 1+ PHOS; Bacteria RARE /hpf (None Seen); Red Blood Cells-Urine 5-10 SEEN /hpf (0-5); Squamous Epithelial Cells - UA 0-5 SEEN /hpf (5-10); White Blood Cells 25-50 SEEN /hpf (0-5)
[2019-05-17 23:00] VITALS: BP 168/86; PULSE 55; RESP 22; O2SAT 97
[2019-05-17 23:02] LABS: ALB/GLOB Ratio 0.7 RATIO (0.9-2.4); AST(SGOT) 26 U/L (15-37); Alanine Aminotransfer ALT/SGPT 44 U/L (13-56); Albumin, Serum 2.9 g/dL (3.2-5.0); Alkaline Phosphatase 94 U/L (45-117); Anion Gap 8 (5-15); BUN 12 mg/dL (7-18); BUN/Creat Ratio 18.6 RATIO (10-20); Calcium,Total 8.4 mg/dL (8.5-10.1); Chloride 110 mmol/L (98-107); Creatinine, Serum 0.64 mg/dL (0.55-1.02); EST Glomerular Filtration Rate 117 mL/min (>60); Est Glom Filt Rate - Afr Amer 142 mL/min (>60); Estimated Creatinine Clearance 123.61 ml/min; Globulin 4.1 g/dL (2.2-4.2); Glucose 81 mg/dL (74-106); Potassium 3.9 mmol/L (3.5-5.1); Sodium Level 143 mmol/L (136-145); Uric Acid 5.1 mg/dL (2.6-6.0)
[2019-05-17 23:38] VITALS: BP 164/80; PULSE 53; RESP 17; O2SAT 99
[2019-05-17 23:53] VITALS: BP 130/68; PULSE 60; RESP 20; O2SAT 98
[2019-05-18] MEDS: Smz/Tmp Ds Tablet 1 TABLET PO (00:04)
== END 2019-05-18 00:09 | disposition home or self-care (01) ==
PROVIDERS: Emergency Provider Emergency Medicine; Family Provider Internal Medicine; PCP Internal Medicine
DX: O13.5 Gestational [pregnancy-induced] hypertension without significant proteinuria, complicating the puerperium (principal); O89.4 Spinal and epidural anesthesia-induced headache during the puerperium; O86.20 Urinary tract infection following delivery, unspecified; Z79.899 Other long term (current) drug therapy; Z88.5 Allergy status to narcotic agent
CPT/HCPCS: 80053; 81001; 84550; 85025; 99285; A4216

== ENCOUNTER → 2019-08-21 09:15 | Outpatient (CLI) | payer OTHER, SELFPAY ==
[2019-08-15 13:04] VITALS: BMI 28.3
--- NOTE | 2019-08-21 09:18 | NM_ITS ---
CLINICAL: 28-year-old female with reported history of abdominal pain and nausea. RADIONUCLIDE HEPATOBILIARY SCINTIGRAPHY COMPARISON: None available FINDINGS: Following the intravenous administration of 5.5 mCi of 99m Tc Mebrofenin, hepatobiliary images reveal: 1. Relatively prompt and homogeneous radiopharmaceutical concentration is noted by a normal sized liver. No parenchymal defects are identified. 2. Gallbladder activity is identified at 10 minutes post radiopharmaceutical administration. 3. Small intestinal tract is not visualized during 60 minutes of pre-cholecystokinin sequential image acquisition, small bowel is observed at following CCK infusion. 4. Washout of the radiopharmaceutical by the hepatic parenchyma appears qualitatively normal. Cholecystokinin (0.02 ug/kg) was administered intravenously over a 30-minute period. The post CCK gallbladder ejection fraction calculated at 20 minutes following Cholecystokinin administration was noted to be 23.0 % (normal greater than 35%). NM/Hepatobilliary Img w/Pharm Int IMPRESSION: 1. ABNORMAL 99m Tc Mebrofenin hepatobiliary imaging examination with Cholecystokinin. A. A gallbladder ejection fraction calculated to be less than 35% following the administration of Cholecystokinin is consistent with the presence of functional hepatobiliary disease (gallbladder and/or sphincter of Oddi dyskinesia) and/or organic hepatobiliary disease (chronic acalculous cholecystitis and/or cystic duct syndrome) in patients with intermediate to high pretest probabilities of hepatobiliary illness. (Luis Fernando Santillan et al, Journal of Nuclear Medicine 32:1695, 1990). Electronically Signed: Alberto Mancia DO at 22:23 EST Tel , Service support ,
== END ==
PROVIDERS: Family Provider Internal Medicine; PCP Internal Medicine; Referring Provider Surgery; Visit Provider Surgery
DX: R94.5 Abnormal results of liver function studies (principal)
CPT/HCPCS: 78227; A9537; J2805

== ENCOUNTER 2019-08-24 14:25 | Emergency (ER) | payer OTHER, SELFPAY ==
[2019-08-15 13:04] VITALS: BMI 28.3
[2019-08-24 14:25] VITALS: BP 126/85; PULSE 129; RESP 15; TEMP 37.9; O2SAT 97; BMI 28.5
--- NOTE | 2019-08-24 14:52 | ED.DCSUM_ITS ---
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 Relieved by: Nothing Associated Symptoms: Per clinic notes left lower quadrant pain - Past Medical History (1) Abnormal liver function tests Status: Acute Past Medical History - Allergies and Home Meds Allergies/Adverse Reactions: Allergies morphine Allergy (Verified 08/24/19 14:30) Hives Primary Care Physician: Catherine Adair MD [Primary Care Provider] - Prior records reviewed: Yes Surgical History: appendectomy Lives: Spouse/ Significant Other, With Family Smoking Status: Never smoker Alcohol: Rare Drugs: None Review of Systems General: Reports: Chills, Fever - T-max 102.0 ?F, Malaise, Sweats. Denies: Subjective Eyes: Denies: Visual changes - bilaterally, Blurred Vision - bilaterally ENT: Denies: Bilateral ear pain, Left ear pain, Right ear pain, Rhinorrhea, Sore throat, -, - Cardiovascular: Denies: Chest pain, Palpitations Respiratory: Denies: Dyspnea, Cough, Dyspnea on exertion Gastrointestinal: Reports: Nausea. Denies: Vomiting, Diarrhea, Constipation, Melena, Hematochezia Genitourinary: Denies: Dysuria, Hematuria, Frequency Musculoskeletal: Reports: Back pain - Central mid back. Denies: Myalgias, Arthralgias, Neck pain, Swelling, Extremity Pain, -, - Skin: Denies: Rash, Wounds Neurological: Reports: Headache. Denies: Weakness, Parasthesia, Numbness, -, - Endocrine: Denies: Polyuria, Polydipsia Hematologic: Denies: Easy bruising, Easy bleeding Physical Exam Vital Signs/Narrative: Vital Signs Temp Pulse Resp BP Pulse Ox 08/24/19 14:25 100.3 F H 129 H 15 126/85 H 97 Inital Vital Signs reviewed: Yes General: Well nourished, Well developed, Obese, No Acute Distress Head: Normocephalic, Atraumatic Eyes: Perrl, EOMI. Negative for: Pale conjunctiva, Scleral icterus ENT: Moist mucous membranes, No rhinorrhea, TM's clear Neck: Supple, Nontender, No lymphadenopathy, No JVD Cardiovascular: Regular rhythm, No murmurs, Normal S1, Normal S2, Tachycardia Respiratory: No distress, CTA bilaterally, Chest nontender Abdomen: Soft, Nondistended, Normal bowel sounds, No masses, Tender - Left lower quadrant to deep palpation, Hypoactive bowel sounds. Negative for: Nontender, Guarding, Rebound tenderness, Hepatomegaly, Splenomegaly Rectal: Deferred Back: Nontender, Normal Inspection Extremities: Nontender, No edema Skin: Normal color, No rash Neurological: Alert, Oriented x3, Cranial nerves II-XII grossly intact, Normal Strength, Normal Sensation Psychological: Normal affect, Normal Mood Diagnostic/Tx/Re-eval Impressions Abdomen/Pelvis CT 08/24/19 15:05 IMPRESSION: 1. Top normal to mildly prominent liver with diffuse fatty infiltration. There is no focal mass. 2. Normal appearing gallbladder and biliary ductal system. 3. Splenomegaly. 4. Left ovarian cyst. 5. Large left inguinal lymph node with other subcentimeter bilateral inguinal nodes. 6. Subcentimeter nonspecific retroperitoneal lymphadenopathy. Electronically Signed: Scotty Gallardo DO at 17:33 EST Tel [phone], Service support , 08/24/19 15:05 Abdomen/Pelvis WITH Contrast [CT] Stat Laboratory Results 08/24/19 08/24/19 08/24/19 15:00 15:00 15:00 WBC 3.3 L RBC 4.23 Hgb 11.9 L Hct 36.4 L MCV 86.1 MCH 28.1 MCHC 32.7 RDW Std Deviation 41.2 RDW Coeff of Mery 13.2 Plt Count 150 MPV 10.9 Immature Gran % (Auto) 1.500 H Neut % (Auto) 58.8 Lymph % (Auto) 31.3 [place] % (Auto) 7.5 Eos % (Auto) 0.0 Baso % (Auto) 0.9 Absolute Neuts (auto) 2.0 Absolute Lymphs (auto) 1.04 Nucleated RBC % 0 Differential Comment COMMENT Sodium 136 Potassium 3.5 Chloride 103 Carbon Dioxide 25.0 Anion Gap 8 BUN 6 L Creatinine 0.80 Estim Creat Clear Calc 98.88 Est GFR (MDRD) Af Amer 110 Est GFR (MDRD) Non-Af 91 BUN/Creatinine Ratio 7.5 L Glucose 113 H Lactic Acid 2.2 H Calcium 8.5 Total Bilirubin 0.90 AST 83 H ALT 143 H Alkaline Phosphatase 73 Total Protein 7.8 Albumin 3.6 Globulin 4.2 Albumin/Globulin Ratio 0.9 Lipase 190 There is a left ovarian cyst probably explains her left lower quadrant/inguinal pain. There is also lymphadenopathy which is probably secondary to viral infection in light of the fact that she has a low white count. Results were discussed with Dr. Kj Leija. We agree that this most likely represents a viral infection and pain secondary to a left ovarian cyst. - Medical Decision Making Liver enzymes on the were elevated with an AST and ALT of 98 187 respectively. Lipase was slightly elevated 67. HIDA scan was abnormal. Gallbladder ejection fraction calculated to less than 35% following the administration of cholecystokinin and consistent with presence of functional hepatobiliary disease and/or organic hepatobiliary disease i.e. chronic acalculous cholecystitis With patient now complaint of fever chills diaphoresis elevated temperature will obtain CBC, liver enzymes, lipase. Blood cultures and lactate were ordered prior to administration of Zosyn. Since patient hss seen Dr. Leija she is requesting Dr. Kj Leija he was paged ED Disposition - Plan for ED Patient: Disposition: Home or Assisted Living Diagnosis: Left ovarian cyst, Systemic viral illness, Elevated liver enzymes, Lactic acid increased Instructions: ABDOMINAL PAIN, Unknown Cause, (Female), Ovarian Cyst Referrals: Catherine Adair MD [Primary Care Provider] - Kj Leija MD [STAFF PHYSICIAN] - Keep Juan appointment
[2019-08-24] MEDS: Ketorolac 15 MG/ML Vial IV (15:04)
--- NOTE | 2019-08-24 15:05 | CT_ITS ---
STUDY: CT ABDOMEN AND PELVIS WITH CONTRAST REASON FOR EXAM: Female, 28 years old. Fever. Chills. Diaphoresis. Abdominal pain. Elevated liver enzymes. Abnormal HIDA scan. 3 months . The history of ruptured appendix and partial colectomy. RADIATION DOSAGE (If Supplied By Facility): CTDIvol = ( 11.9 ) mGy, DLP = ( 920.71 ) mGycm TECHNIQUE: Transaxial images were obtained from the dome of the diaphragm to the symphysis pubis with oral contrast. IV/Oral Isovue 370 100 was administered. Sagittal and coronal images were reconstructed. Individualized dose optimization techniques were used for this CT. COMPARISON: Hepatobiliary scan, August 21, 2019. FINDINGS: The visualized lung bases are unremarkable. The visualized portions of the heart are within normal limits. There is mild prominence of the diffusely fatty infiltrated liver. There is no evidence of focal mass. Normal gallbladder and extrahepatic biliary system. Spleen is enlarged but uniform in enhancement. Normal pancreas. Normal bilateral adrenal glands. Normal right kidney. Normal left kidney. Normal visualized ureters. Normal visualized stomach. Normal small intestine. Normal colon. There is non-visualization of the appendix. Normal abdominal aorta. Normal inferior vena cava. There is nonspecific subcentimeter aortocaval and periaortic lymph nodes. Normal urinary bladder. Uterus is anteverted and midline. There is a 2.4 cm left ovarian cyst. A 1 cm dominant follicle is seen in the right ovary. There is no pelvic lymphadenopathy or mass. No free air or free fluid is seen within the peritoneal cavity. Minimal umbilical hernia. There is a 1.8 x 1.6 x 1.8 cm left inguinal lymph node. Other subcentimeter inguinal nodes are seen bilaterally. Normal osseous structures. CT/Abdomen/Pelvis WITH Contrast IMPRESSION: 1. Top normal to mildly prominent liver with diffuse fatty infiltration. There is no focal mass. 2. Normal appearing gallbladder and biliary ductal system. 3. Splenomegaly. 4. Left ovarian cyst. 5. Large left inguinal lymph node with other subcentimeter bilateral inguinal nodes. 6. Subcentimeter nonspecific retroperitoneal lymphadenopathy. Electronically Signed: Scotty Gallardo DO at 17:33 EST Tel [phone], Service support ,
[2019-08-24 15:06] LABS: Absolute Lymphocyte Count 1.04 X10^3/uL (0.83-4.51); Basophil# 0.03 X10^3/uL; Basophil% 0.9 % (0-1); Hematocrit 36.4 % (37-47); Hemoglobin 11.9 g/dL (12.0-15.0); Lymphocyte # 1.04 X10^3/ul (4.0); Lymphocyte % 31.3 % (19-41); Mean Corp Hgb Conc 32.7 g/dL (32-36); Mean Corpuscular Hgb 28.1 pg (27.0-32.0); Mean Corpuscular Volume 86.1 fL (81-99); Mean Platelet Vol. 10.9 fl (6.2-12.0); Monocyte# 0.25 X10^3/uL; Monocyte% 7.5 % (0-10); NRBC Flagged by Analyzer 0 % (0-5); Neutrophil # 1.95 X10^3/uL (2.7-7.7); Neutrophil % 58.8 % (47-70); POSITIVE MORPHOLOGY YES; Platelet Count 150 K/mm3 (150-450); RBC Distribution Width CV 13.2 % (11.6-14.6); RBC Distribution Width SD 41.2 fl (35.1-43.9); Red Blood Count 4.23 M/mm3 (4.2-5.4); White Blood Count 3.3 K/mm3 (4.4-11.0)
[2019-08-24 15:23] LABS: Differential Indicated SCAN CRITERIA MET
[2019-08-24] MEDS: Ondansetron 4 MG/2 ML Vial IV (15:23)
[2019-08-24 15:24] LABS: ALB/GLOB Ratio 0.9 RATIO (0.9-2.4); AST(SGOT) 83 U/L (15-37); Alanine Aminotransfer ALT/SGPT 143 U/L (13-56); Albumin, Serum 3.6 g/dL (3.2-5.0); Alkaline Phosphatase 73 U/L (45-117); Anion Gap 8 (5-15); BUN 6 mg/dL (7-18); BUN/Creat Ratio 7.5 RATIO (10-20); Calcium,Total 8.5 mg/dL (8.5-10.1); Chloride 103 mmol/L (98-107); EST Glomerular Filtration Rate 91 mL/min (>60); Est Glom Filt Rate - Afr Amer 110 mL/min (>60); Estimated Creatinine Clearance 98.88 ml/min; Globulin 4.2 g/dL (2.2-4.2); Glucose 113 mg/dL (74-106); Lipase 190 U/L (73-393); Potassium 3.5 mmol/L (3.5-5.1); Protein, Total 7.8 g/dL (6.4-8.2); Sodium Level 136 mmol/L (136-145)
[2019-08-24 15:37] LABS: Lactic Acid 2.2 mmol/L (0.4-2.0)
--- NOTE | 2019-08-24 15:56 | ED.RN ---
lab called with critical lab results. lactic acid 2.2. Dr. Pastor made aware no new orders at this time
[2019-08-24 16:22] VITALS: BP 125/78; PULSE 110; RESP 20; O2SAT 99
[2019-08-24 19:01] LABS: Reflex Lactate? Y
== END 2019-08-24 18:15 | disposition home or self-care (01) ==
PROVIDERS: Emergency Provider Emergency Medicine; Family Provider Internal Medicine; PCP Internal Medicine
DX: N83.202 Unspecified ovarian cyst, left side (principal); B34.9 Viral infection, unspecified; R74.8 Abnormal levels of other serum enzymes; R50.9 Fever, unspecified; R10.32 Left lower quadrant pain; R59.1 Generalized enlarged lymph nodes; R94.5 Abnormal results of liver function studies; Z88.5 Allergy status to narcotic agent
CPT/HCPCS: 74177; 80053; 83605; 83690; 85025; 96365; 96375; 99285; Q9967; J2405

== ENCOUNTER 2019-08-26 07:59 | Inpatient (IN) | payer OTHER, SELFPAY ==
[2019-08-26] VITALS (11 sets, daily range): BP systolic 119–133; BP diastolic 78–94; PULSE 90–139; RESP 14–20; TEMP 36.6–38.4; O2SAT 96–100; BMI 28.5; BMI 28.0
--- NOTE | 2019-08-26 08:14 | ED.DCSUM_ITS ---
History of Present Illness Chief Complaint: Nausea/Vomiting/Diarrhea Detail of Chief Complaint: Fever Informant: Patient, Family Onset: Days Current Severity: Mild Maximum Severity: Moderate Narrative: Patient presents with 5-day history of fever, nausea, intermittent vomiting. She started having some diarrhea yesterday. T-max has been 103.5. She is currently undergoing work-up for elevated liver function test. She had a HIDA scan performed earlier this month that was abnormal. She was seen in the ER 2 days ago and had a CT scan that showed left ovarian cyst. It was felt she likely had viral syndrome. She was reported tested for flu as well as a UTI at 1 of the local urgent cares a few days ago and those were both negative. - Past Medical History (1) Ovarian cyst Status: Chronic (2) Abnormal liver function tests Status: Chronic Past Medical History - Allergies and Home Meds Allergies/Adverse Reactions: Allergies morphine Allergy (Verified 08/26/19 08:00) [place] Primary Care Physician: Catherine Adair MD [Primary Care Provider] - Prior records reviewed: Yes Surgical History: appendectomy Smoking Status: Never smoker - Family History Maternal Family History: Family History (Last Updated 08/15/19 @ 13:00 by Stacey Agustin) Grandmother Diabetes Father Hypertension Family History: Reports: No pertinent history Paternal Family History: Family History (Last Updated 08/15/19 @ 13:00 by Stacey Agustin) Grandmother Diabetes Father Hypertension Family History: Reports: No pertinent history Review of Systems General: Reports: Fever Eyes: Denies: Visual changes - bilaterally ENT: Denies: Bilateral ear pain Cardiovascular: Denies: Chest pain Respiratory: Denies: Dyspnea, Cough Gastrointestinal: Reports: Abdominal pain, Nausea, Vomiting, Diarrhea Musculoskeletal: Denies: Extremity Pain Neurological: Reports: Headache, Weakness - Generalized weakness Hematologic: Denies: Easy bruising Allergy: Denies: Uticaria Physical Exam Vital Signs/Narrative: Vital Signs Temp Pulse Resp BP Pulse Ox 08/26/19 08:01 98 F 122 H 20 H 129/82 H 100 Inital Vital Signs reviewed: Yes General: Well nourished, Well developed ENT: Dry mucous membranes Neck: Supple Cardiovascular: Tachycardia Respiratory: No distress, CTA bilaterally Abdomen: Soft, Nontender, Hypoactive bowel sounds Extremities: Nontender Skin: Normal color, No rash Neurological: Alert, Oriented x3 Psychological: Normal affect Diagnostic/Tx/Re-eval Impressions Gallbladder Ultrasound 08/26/19 10:16 IMPRESSION: 1. Hepatomegaly. 2. Fatty infiltration of the liver. 3. No evidence of gallstones. Electronically Signed: Carlos Peacock MD at 11:32 EST Tel , Service support , 08/26/19 10:16 US Gallbladder [Gallbladder] [US] Stat 08/26/19 13:39 Cholangiogram/ O R,Initial [RAD] Stat O.R. Fluoro for C-Arm [RAD] Stat 08/26/19 08:24 Mucosa - Nose Respiratory Panel (PCR) - Final Laboratory Results 08/26/19 08/26/19 08/26/19 08:20 08:40 08:40 WBC 2.9 L RBC 4.04 L Hgb 11.4 L Hct 35.4 L MCV 87.6 MCH 28.2 MCHC 32.2 RDW Std Deviation 39.9 RDW Coeff of Mery 12.5 Plt Count 92 L MPV 11.1 Neut % (Auto) Not Reportable Absolute Neuts (auto) 1.3 L Absolute Lymphs (auto) 1.11 Total Counted 100 Neutrophils % (Manual) 38 L Band Neutrophils % 5 Lymphocytes % (Manual) 38 Monocytes % (Manual) 15 H Eosinophils % (Manual) 3 Metamyelocytes % 1 [address] Review May foll Atypical Lymphocytes 2+ Platelet Estimate MOD DEC Hypochromasia RARE Sodium 139 Potassium 3.4 L Chloride 104 Carbon Dioxide 27.0 Anion Gap 8 BUN 6 L Creatinine 0.73 Estim Creat Clear Calc 108.37 Est GFR (MDRD) Af Amer 122 Est GFR (MDRD) Non-Af 101 BUN/Creatinine Ratio 8.2 L Glucose 128 H Calcium 8.6 Total Bilirubin 2.40 H Direct Bilirubin 1.87 H AST 97 H ALT 122 H Alkaline Phosphatase 121 H Total Protein 7.1 Albumin 3.4 Globulin 3.7 Lipase 219 Serum , Qual Urine Color ORANGE Urine Clarity Cloudy Urine pH 6.5 Ur Specific [place] 1.015 Urine Protein 100 H Urine Glucose (UA) Normal Urine Ketones 5 H Urine Occult Blood 10 H Urine Nitrite Positive H Urine Bilirubin 6 H Urine Urobilinogen 12 H Ur Leukocyte Esterase 500 H Urine RBC 0-5 SEEN Urine WBC 5-10 SEEN Ur Squamous Epith Cells 10-25 SEEN Calcium Oxalate Crystal Urine Bacteria 1+ Urine Mucus 1+ Urine Yeast RARE 08/26/19 08/26/19 08:40 09:50 WBC RBC Hgb Hct MCV MCH MCHC RDW Std Deviation RDW Coeff of Mery Plt Count MPV Neut % (Auto) Absolute Neuts (auto) Absolute Lymphs (auto) Total Counted Neutrophils % (Manual) Band Neutrophils % Lymphocytes % (Manual) Monocytes % (Manual) Eosinophils % (Manual) Metamyelocytes % Diff Path Review Atypical Lymphocytes Platelet Estimate Hypochromasia Sodium Potassium Chloride Carbon Dioxide Anion Gap BUN Creatinine Estim Creat Clear Calc Est GFR (MDRD) Af Amer Est GFR (MDRD) Non-Af BUN/Creatinine Ratio Glucose Calcium Total Bilirubin Direct Bilirubin AST ALT Alkaline Phosphatase Total Protein Albumin Globulin Lipase Serum , Qual NEGATIVE Urine Color SEE COMMENT BELOW Urine Clarity Sl. Cloudy Urine pH 6.5 Ur Specific [place] 1.020 Urine Protein 30 H Urine Glucose (UA) Normal Urine Ketones Negative Urine Occult Blood 10 H Urine Nitrite Negative Urine Bilirubin 6 H Urine Urobilinogen 12 H Ur Leukocyte Esterase 500 H Urine RBC 0-5 SEEN Urine WBC 5-10 SEEN Ur Squamous Epith Cells 10-25 SEEN Calcium Oxalate Crystal RARE Urine Bacteria 1+ Urine Mucus 1+ Urine Yeast RARE - Medical Decision Making Patient was given Zofran and IV fluids on arrival. She did develop a fever while here and was given a dose of Tylenol. Patient does now have elevation in her bilirubin which was not present previously. In light of this I did obtain a ultrasound of the right upper quadrant to further evaluate her gallbladder and bile duct. This is unremarkable. I spoke with physician covering for her primary care physician to help ensure close follow-up as well as Dr. Rose, on-call for the patient's surgeon. I received a phone call from Dr. Leija, the patient's surgeon asking for an update on the patient. He presented to the emergency room to evaluate her. He is concerned about her platelet count dropping. He has decided to take the patient to surgery now while he can still perform the surgery in case her platelet count continues to drop. Addendum: Patient had a Monospot test that returned positive after she was seen by Dr. Leija. He has asked the hospitalist to admit her in light of this and will not plan to take her to surgery immediately. ED Disposition - Plan for ED Patient: Disposition: Acute Care Hospital [facility] Diagnosis: Viral syndrome, Elevated liver enzymes, Fever Prescriptions: Ondansetron [Zofran Odt] 4 mg PO Q8H PRN PRN #10 tab PRN Reason: Nausea Prescription Printed Referrals: Catherine Adair MD [Primary Care Provider] -
[2019-08-26 08:26] LABS: Glucose, Dipstick Normal (Normal); Ketone-Dipstick 5 mg/dl (Negative); Leukocyte Esterase-Dipstick 500 /ul (Negative); Nitrite-Dipstick Positive (Negative); Occult Blood-Urine 10 /ul (Negative); Protein-Dipstick 100 mg/dl (Negative); Specific Gravity, Urine 1.015 (1.002-1.030); Urine Clarity Cloudy (Clear); Urine Urobilinogen 12 mg/dl (Normal); Urine pH 6.5 (5.0 - 8.0)
[2019-08-26 08:29] LABS: Color, Urine ORANGE (Yellow); Urine Bilirubin Dipstick 6 mg/dL (Negative)
[2019-08-26 08:32] LABS: Bacteria 1+ /hpf (None Seen); Mucous, Urine 1+ /hpf (<or=2+); Red Blood Cells-Urine 0-5 SEEN /hpf (0-5); Squamous Epithelial Cells - UA 10-25 SEEN /hpf (5-10); White Blood Cells 5-10 SEEN /hpf (0-5); Yeast-Urine RARE /hpf (None Seen)
[2019-08-26] MEDS: 0.9% Normal Saline 1,000 ML 1000 ML IV (08:54)
[2019-08-26] MEDS: Ondansetron 4 MG/2 ML Vial IV ×2 (08:55→19:03)
[2019-08-26 09:08] LABS: Hematocrit 35.4 % (37-47); Hemoglobin 11.4 g/dL (12.0-15.0); Mean Corp Hgb Conc 32.2 g/dL (32-36); Mean Corpuscular Hgb 28.2 pg (27.0-32.0); Mean Corpuscular Volume 87.6 fL (81-99); Mean Platelet Vol. 11.1 fl (6.2-12.0); POSITIVE COUNT YES; POSITIVE MORPHOLOGY YES; Platelet Count 92 K/mm3 (150-450); RBC Distribution Width CV 12.5 % (11.6-14.6); RBC Distribution Width SD 39.9 fl (35.1-43.9); Red Blood Count 4.04 M/mm3 (4.2-5.4); White Blood Count 2.9 K/mm3 (4.4-11.0)
[2019-08-26 09:10] LABS: Differential Indicated MANUAL DIFF
[2019-08-26 09:20] LABS: AST(SGOT) 97 U/L (15-37); Alanine Aminotransfer ALT/SGPT 122 U/L (13-56); Albumin, Serum 3.4 g/dL (3.2-5.0); Alkaline Phosphatase 121 U/L (45-117); Anion Gap 8 (5-15); BUN 6 mg/dL (7-18); BUN/Creat Ratio 8.2 RATIO (10-20); Bilirubin, Direct 1.87 mg/dL (0.00-0.30); Calcium,Total 8.6 mg/dL (8.5-10.1); Chloride 104 mmol/L (98-107); Creatinine, Serum 0.73 mg/dL (0.55-1.02); EST Glomerular Filtration Rate 101 mL/min (>60); Est Glom Filt Rate - Afr Amer 122 mL/min (>60); Estimated Creatinine Clearance 108.37 ml/min; Globulin 3.7 g/dL (2.2-4.2); Glucose 128 mg/dL (74-106); Lipase 219 U/L (73-393); Potassium 3.4 mmol/L (3.5-5.1); Protein, Total 7.1 g/dL (6.4-8.2); Sodium Level 139 mmol/L (136-145)
[2019-08-26 09:31] LABS: Eosinophil 3 % (0-5); Lymphocyte 38 % (19-41); Metamyelocyte 1 % (0-1); Monocyte 15 % (0-10); Neutrophil-Band 5 % (0-5); Neutrophil-Segmented 38 % (47-70); Total Cells Counted 100 (MANUAL DIFF)
[2019-08-26 09:32] LABS: Atypical Lymphocyte 2+ %; Hypochromasia RARE; Platelet Estimate MOD DEC (ADEQ)
[2019-08-26 09:33] LABS: Absolute Neutrophil Count 1.3 X10^3/uL (2.0-7.7)
[2019-08-26 09:34] LABS: Absolute Lymphocyte Count 1.11 X10^3/uL (0.83-4.51)
[2019-08-26 09:42] LABS: Internal QC Validated? YES +Cl - CLEAR BKGD; Pregnancy, Serum, hCG Quali. NEGATIVE Negative
[2019-08-26] MEDS: Acetaminophen 500 MG Tablet 1000 MG PO (09:42)
[2019-08-26] MEDS: 0.9% Normal Saline 1,000 ML 150 ML IV (09:49)
[2019-08-26 10:05] LABS: Color, Urine SEE COMMENT BELOW (Yellow); Glucose, Dipstick Normal (Normal); Ketone-Dipstick Negative (Negative); Leukocyte Esterase-Dipstick 500 /ul (Negative); Nitrite-Dipstick Negative (Negative); Occult Blood-Urine 10 /ul (Negative); Protein-Dipstick 30 mg/dl (Negative); Urine Bilirubin Dipstick 6 mg/dL (Negative); Urine Clarity Sl. Cloudy (Clear); Urine Urobilinogen 12 mg/dl (Normal); Urine pH 6.5 (5.0 - 8.0)
[2019-08-26 10:07] LABS: Bacteria 1+ /hpf (None Seen); Mucous, Urine 1+ /hpf (<or=2+); Red Blood Cells-Urine 0-5 SEEN /hpf (0-5); Squamous Epithelial Cells - UA 10-25 SEEN /hpf (5-10); White Blood Cells 5-10 SEEN /hpf (0-5)
[2019-08-26 10:08] LABS: Calcium Oxalate Crystals Ur RARE /hpf (<or=2+); Yeast-Urine RARE /hpf (None Seen)
--- NOTE | 2019-08-26 10:16 | US_ITS ---
STUDY: ABDOMINAL ULTRASOUND - RIGHT UPPER QUADRANT REASON FOR VISIT: Female, 28 years old abnormal liver function tests. TECHNIQUE: Ultrasound evaluation of the right upper quadrant was performed with real-time and static may-scale imaging. TECHNICAL QUALITY: Adequate. COMPARISON: None. FINDINGS: Liver: The liver measures 18.7 cm. There is increased echogenicity consistent with fatty infiltration. The bile ducts are within normal limits. There is hepatic color flow. The direction of portal flow is hepatopetal. There is no demonstrated mass lesion. Gallbladder: Normal distended gallbladder. The gallbladder wall measures 2.5 mm. There is a negative sonographic Vo's sign. There is no pericholecystic fluid. There are no gallstones. Common Bile Duct (C.B.D.): The common bile duct measures 3 mm. Pancreas: Normal size of the head, body and tail of the pancreas. There is normal echogenicity of the pancreas. There is no demonstrated pancreatic mass or cyst. Right Kidney: Normal size of the right kidney. The right kidney measures 13.4 x 6.3 x 6.6 cm. Normal renal cortex. The right cortex measures 2.8 cm. There is no demonstrated renal mass or cyst. There is no right hydronephrosis. US/Gallbladder IMPRESSION: 1. Hepatomegaly. 2. Fatty infiltration of the liver. 3. No evidence of gallstones. Electronically Signed: Carlos Peacock MD at 11:32 EST Tel , Service support ,
--- NOTE | 2019-08-26 13:32 | PCM.HP.STD ---
Problem List (1) Abnormal liver function tests Status: Chronic History of Present Illness Date of Admission: 08/26/19 The patient is a 28 year old F who presents the emergency room for recurrent visit after repetitive problems with high spiking fever now up to 103. On August 15, 2019 the patient was referred to me for an office visit because of nonspecific abdominal bloating and abnormal liver function tests. 3 months prior she had had a vaginal delivery. The only complication she had was epidural headache which required blood patches x2. 6 weeks post delivery and IUD was placed. Within 2 weeks she complained of abdominal bloating mostly at the end of the day. She has had some diarrhea looser stools but that is been very intermittent. Her history is notable for a complicated appendicitis in 2010 which ended up with my performing a laparoscopic right colectomy because of the complicated presentation. Part of her presentation was me because of a sister of hers had been recently diagnosed with Crohn's disease. There was concerned about her looser stools and some intermittent bleeding as to whether the patient required a colonoscopy. It is of note that May 17, 2019 the patient had liver function tests obtained through the [facility] system and those were normal at that time. It is of additional note that in 2011 she had a gallbladder ultrasound and HIDA scan both normal. On August 08, 2018 her CBC was normal but her LFTs show an AST slightly elevated at 148 CRP was 2.2 WSR was 10.2. On August 10 her AST was 123 and ALT 196 with a lipase of 65. On August 14 her AST was 98 and LT 187 with a total bilirubin of 0.2 and alkaline phosphatase of 60 lipase was 67. She had a gallbladder ultrasound done on August 10 showing mild hepatic steatosis no biliary rotation no gallstones no splenomegaly no pericholecystic fluid. At that time she was complaining of a bloating sensation in the low abdomen. Soon after her visit with me she had the IUD removed. Dates that was an uncomplicated procedure. Her graft on August 21, 2018 she had a hepatobiliary scan done. The gallbladder showed within 10 minutes. The small intestine was not visualized during the 60 minutes but was seen after CCK. The wash out of hepatic parenchyma appears normal. The patient states that she has been unwell ever since the hepatobiliary scan. She states that she has been spiking fever. She was seen in the emergency room 2 nights ago. On August 24, [address] scan of the abdomen was obtained. There was a 2.4 similar left ovarian cyst. No pelvic adenopathy. No free fluid. No mass. Spleen was slightly enlarged but uniform. Normal gallbladder. Normal extrabiliary system. Slight fatty liver. Normal pancreas. Her white blood cell count was low now at 3.3 with a hemoglobin 11.9 hematocrit 36.4 platelet count 150,000 which was a less than previous platelet counts of over 200,000. Neutrophils were 58.8 with a lymphocytes of 31.3 area lactic acid level was 2.2. AST was 83. ALT was 143. Alk phos a 73. Total bilirubin 0.9. Lipase was 190. She was evaluated by Dr. Pastor. Clinical exam did not suggest an acute surgical abdomen. The patient states that on her return home later that evening she again had fevers up higher than 101. She states that yesterday she continued to have fevers today her fever reached 103 and so she returned to the emergency room. A repeat gallbladder ultrasound showed hepatomegaly. Fatty infiltration of liver. No evidence of gallstones. No more distended gallbladder. Gallbladder wall is 2.5 mm. No gallstones. No pericholecystic fluid. Negative Vo sign. Common bile duct 3 mm. Now her white blood cell count is 2.9 with a hemoglobin 11.4 hematocrit 35.4 platelet count 92,000. 38% neutrophils. 5% band. 38% lymphocytes. 15% monocytes. Currently however her AST is 97 ALT 122 alkaline phosphatase now 121 total bilirubin now 2.4 with a direct bilirubin of 1.87. Lipase is 219. Urinalysis appears contaminated with 10-25 squamous cells By report 2 to 3 days ago patient had rapid flu test obtained the [facility] which was negative. Blood cultures have been drawn today. The patient is noting some intermittent low back pain. Some intermittent intrascapular pain. Abdominal bloating and nausea. A nonspecific nagging upper abdominal pain. Past Medical History Past Medical History (Chronic Problems): Chronic Problems (Last Reviewed 08/15/19 @ 12:57 by Stacey Agustin) Abnormal liver function tests (Chronic) Medical History: Medical History (Last Reviewed 08/15/19 @ 12:57 by Stacey Agustin) Abdominal bloating (Acute) R14.0 Abnormal liver function tests (Chronic) R94.5 Allergies morphine Allergy (Verified 08/26/19 08:00) Hives Home Medications: Ambulatory Orders Medication Instructions Recorded Ondansetron [Zofran Odt] 4 mg PO Q8H PRN PRN #10 tab 08/26/19 Surgical History: Surgical History (Last Reviewed 08/15/19 @ 12:58 by Stacey Agustin) S/P ACL surgery Z98.890 S/P appendectomy Z90.49 S/P tonsillectomy Z90.89 Surgical History: appendectomy Smoking Status: Never smoker Review of Systems Constitutional: Reports: Anorexia, Chills, Fever HEENT: Denies: Difficulty Swallowing Cardiovascular: Denies: Chest Pressure Respiratory: Denies: Cough Gastrointestinal: Reports: Abdominal Pain, Diarrhea Endocrine: Denies: Change in Body Habitus VTE Information - Inpt Only VTE Present on Admission: No Patient Problems: Active and Suspected Problems (Last Reviewed 08/15/19 @ 12:57 by Stacey Agustin) Viral syndrome (Acute) - Physical Exam Vitals/I&O's: Vital Signs Temp Pulse Resp BP Pulse Ox 101.1 F H 122 H 20 H 129/82 H 100 08/26/19 09:26 08/26/19 08:01 08/26/19 08:01 08/26/19 08:01 08/26/19 08:01 Oxygen Delivery Method Room Air Weight: 176 lb 12.972 oz Body Mass Index (BMI) 28.5 Intake and Output for Last 24 Hours 08/24/19 08/25/19 08/26/19 23:59 23:59 23:59 Intake Total 1000 / 1000 Balance 1000 / 1000 General: Alert, Oriented x3, Cooperative, - - Patient is markedly flushed HEENT: Atraumatic Oral: Moist Mucosa Neck: Supple Lungs: Clear to auscultation Cardiovascular: Regular rate, Regular Rhythm Abdomen: Soft, Distended - Minimal epigastric tenderness to palpation. Minimal tenderness left lower quadrant palpation. Infrequent bowel sounds. Well-healed supraumbilical vertical incision Extremities: No Calf Tenderness Skin: - - Flushed face Neurological: - - Cognition intact Psych/Mental Status: Normal Affect Microbiology Past 72 Hours 08/26/19 08:24 Mucosa - Nose Respiratory Panel (PCR) - Final Laboratory Results 08/26/19 08:20: Urine Color ORANGE, Urine Clarity Cloudy, Urine pH 6.5, Ur Specific Raymond 1.015, Urine Protein 100 H, Urine Glucose (UA) Normal, Urine Ketones 5 H, Urine Occult Blood 10 H, Urine Nitrite Positive H, Urine Bilirubin 6 H, Urine Urobilinogen 12 H, Ur Leukocyte Esterase 500 H, Urine RBC 0-5 SEEN, Urine WBC 5-10 SEEN, Ur Squamous Epith Cells 10-25 SEEN, Urine Bacteria 1+, Urine Mucus 1+, Urine Yeast RARE 08/26/19 08:40: WBC 2.9 L, RBC 4.04 L, Hgb 11.4 L, Hct 35.4 L, MCV 87.6, MCH 28.2, MCHC 32.2, RDW Std Deviation 39.9, RDW Coeff of Mery 12.5, Plt Count 92 L, MPV 11.1, Neut % (Auto) Not Reportable, Absolute Neuts (auto) 1.3 L, Absolute Lymphs (auto) 1.11, Total Counted 100, Neutrophils % (Manual) 38 L, Band Neutrophils % 5, Lymphocytes % (Manual) 38, Monocytes % (Manual) 15 H, Eosinophils % (Manual) 3, Metamyelocytes % 1, Diff Path Review May foll, Atypical Lymphocytes 2+, Platelet Estimate MOD DEC, Hypochromasia RARE 08/26/19 08:40: Sodium 139, Potassium 3.4 L, Chloride 104, Carbon Dioxide 27.0, Anion Gap 8, BUN 6 L, Creatinine 0.73, Estim Creat Clear Calc 108.37, Est GFR (MDRD) Af Amer 122, Est GFR (MDRD) Non-Af 101, BUN/Creatinine Ratio 8.2 L, Glucose 128 H, Calcium 8.6, Total Bilirubin 2.40 H, Direct Bilirubin 1.87 H, AST 97 H, ALT 122 H, Alkaline Phosphatase 121 H, Total Protein 7.1, Albumin 3.4, Globulin 3.7, Lipase 219 08/26/19 08:40: Serum , Qual NEGATIVE 08/26/19 09:50: Urine Color SEE COMMENT BELOW, Urine Clarity Sl. Cloudy, Urine pH 6.5, Ur Specific Raymond 1.020, Urine Protein 30 H, Urine Glucose (UA) Normal, Urine Ketones Negative, Urine Occult Blood 10 H, Urine Nitrite Negative, Urine Bilirubin 6 H, Urine Urobilinogen 12 H, Ur Leukocyte Esterase 500 H, Urine RBC 0-5 SEEN, Urine WBC 5-10 SEEN, Ur Squamous Epith Cells 10-25 SEEN, Calcium Oxalate Crystal RARE, Urine Bacteria 1+, Urine Mucus 1+, Urine Yeast RARE Current Medications Cefazolin Sodium () 2 gm IV X1 ONE Stop: 08/26/19 13:26 Sodium Chloride () 1,000 mls @ 150 mls/hr IV .[id number] [facility] Last Admin: 08/26/19 09:49 Dose: 150 mls/hr Documented by: Assessment/Plan All Active Problems (Last Reviewed 08/15/19 @ 12:57 by Stacey Agustin) Ovarian cyst (Acute) Viral syndrome (Acute) Abdominal bloating (Acute) 28-year-old female who is now had chronically mildly elevated AST and LFT. Since she underwent the hepatobiliary scan she has been unwell with nausea bloating and spiking fevers. The hepatobiliary scan did not initially show flow into the small bowel but only did so after the CCK. Of concern is her neutropenia and thrombocytopenia. These seem to be deepening. Of new note is her monocytosis and in particular her hyperbilirubinemia with an obstructive pattern with elevated direct bilirubin. Etiology to her presentation is significantly unclear. I do not believe that she has acute cholecystitis but I have concerns about the possibility of acute cholangitis. This also seems somewhat of a stretch because of the common bile duct suggesting to be 3 mm. Certainly previous ultrasounds have been incorrect with that measurement. I have consulted Dr. Hernandes. Did I have proposed with the patient a laparoscopic cholecystectomy with cholangiograms and with anticipated needle core liver biopsy. After the results of the nuclear medicine scan with a diminished ejection fraction 23% we had anticipated proceeding on with a more elective cholecystectomy. My concern now is the findings possibly suggesting sepsis. Elevation of the total bilirubin direct component might suggest the possibility of common duct obstruction. If her laboratory continues to evolve in the current situation particularly her platelet count she could easily get into a situation where surgery would not be a viable option. Clearly we have had an extensive discussion that her presentation suggests a viral syndrome. She is well aware as is her that the surgery may not improve her condition at all. We will initiate broad-spectrum antibiotics. She has had an opportunity to ask and have questions answered. We will proceed as noted. In addition I will obtain a Monospot test Kj Leija M.D., F.A.C.S.
[2019-08-26] MEDS: Cefazolin 2 GM in 0.9% Normal Saline 100 ML IV (13:47)
[2019-08-26 13:53] LABS: International Normalized Ratio 1.1; Partial Thromboplast Time 28.6 Seconds (24.1-36.2); Prothrombin Time (Protime)PT. 13.9 SECONDS (11.7-14.9)
[2019-08-26 13:55] LABS: GGTP 464 U/L (5-55)
[2019-08-26 13:57] LABS: Internal QC Validated? YES +Cl - CLEAR BKGD; Monotest POSITIVE (Negative)
[2019-08-26 14:09] LABS: Lactic Acid 1.3 mmol/L (0.4-2.0)
--- NOTE | 2019-08-26 14:26 | PCM.HP.STD ---
Problem List (1) Acute hepatitis Status: Acute (2) Pancytopenia Status: Acute (3) Infectious mononucleosis Status: Acute (4) Ovarian cyst Status: Chronic (5) Abnormal liver function tests Status: Chronic History of Present Illness Date of Admission: 08/26/19 Chief Complaint: Fever, nausea, headache. The patient is a 28 year old F patient with no significant past medical history presented to the emergency room because of 5 days history of fever, nausea and headache. Her illness started this past Wednesday after she had a HIDA scan for abnormal LFT. Later on the same day, she started having fever of up to 103 Fahrenheit, intermittent, associated with nausea and intermittent vomiting as well as headache. She describes this headache dull aching headache all over her head and without aggravating or relieving factors. She complains of intermittent mild right upper quadrant abdominal pain, sometimes sharp pain, not radiating and it lasts only for several minutes and then resolve spontaneously. She had an IUD that was placed 6 weeks after vaginal delivery which was 3 months ago. That IUD was removed couple weeks ago. She denied neck pain or neck stiffness. She reported intermittent back pain which she mentioned is not that significant. She denies urinary symptoms. She reported diarrhea yesterday 3 times which was loose stool without blood. She denied cough or sputum production. In the emergency department, patient was febrile, tachycardic, blood pressure was stable and pulse ox was 100% on room air. Her routine blood work was remarkable for leukopenia, mild neutropenia, thrombocytopenia and anemia. BMP was remarkable for potassium 3.4, otherwise normal. Lactic acid was normal. LFT revealed total bilirubin of 2.40, direct bilirubin of 1.87, both liver transaminases are elevated as well as alkaline phosphatase which was slightly elevated. Urinalysis revealed cloudy urine, negative for nitrite, 5-10 WBCs and +1 bacteria. Ultrasound gallbladder revealed hepatomegaly, no gallstones, CBD diameter is 3 mm. Initially, patient was evaluated by Dr. Leija and the initial working diagnosis was probable acute cholecystitis and patient was planned to go for laparoscopic cholecystectomy. I was consulted to see the patient for medical opinion. Later, Monospot test came back positive consistent with infectious mononucleosis. Dr. Leija stated that plan for surgery was canceled because infectious mononucleosis can explain her elevation of the liver enzymes and he requested that I admit the patient under my service and I agree. Patient is being admitted for infectious mononucleosis which was complicated by leukopenia/neutropenia/thrombocytopenia and acute hepatitis. Past Medical History Past Medical History (Chronic Problems): Chronic Problems (Last Updated 08/26/19 @ 14:26 by Linda Hernandes MD) Ovarian cyst (Chronic) Abnormal liver function tests (Chronic) Medical History: Medical History (Last Updated 08/26/19 @ 14:26 by Linda Hernandes MD) Abnormal liver function tests (Chronic) R94.5 Allergies morphine Allergy (Verified 08/26/19 08:00) Hives Home Medications: Ambulatory Orders Medication Instructions Recorded Ondansetron [Zofran Odt] 4 mg PO Q8H PRN PRN #10 tab 08/26/19 Surgical History: Surgical History (Last Reviewed 08/15/19 @ 12:58 by Stacey Agustin) S/P ACL surgery Z98.890 S/P appendectomy Z90.49 S/P tonsillectomy Z90.89 Surgical History: appendectomy, colectomy, tonsillectomy Psychiatric History: No pertinent psych hx [employer] History: No pertinent [employer] history Lives: Spouse/ Significant Other Smoking Status: Never smoker Alcohol: None Drugs: None - *Family History Maternal Family History: Family History (Last Updated 08/15/19 @ 13:00 by Stacey Agustin) Grandmother Diabetes Father Hypertension History Items: No pertinent history Paternal Family History: Family History (Last Updated 08/15/19 @ 13:00 by Stacey Agustin) Grandmother Diabetes Father Hypertension History Items: No pertinent history Review of Systems Constitutional: Reports: Chills, Fever. Denies: Anorexia, Weakness, Fatigue Eyes: Denies: Blurred vision, Double vision, Drainage HEENT: Reports: Head Aches. Denies: Difficulty Hearing, Ear Pain, Eye Pain, Nasal bleeding, Nasal Congestion, Sore Throat Cardiovascular: Denies: Chest Pain, Chest Pressure, Chest Tightness, Heaviness, Light Headedness, Palpitations, Syncope Respiratory: Denies: Cough, Hemoptysis, Pleuritic Pain, Sputum production, Wheezing Gastrointestinal: Reports: Abdominal Pain, Diarrhea, Nausea, Vomiting. Denies: Constipation Genitourinary: Denies: Dysuria, Frequency, Hematuria Musculoskeletal: Denies: Arm Pain, Back Pain, Foot Pain Skin: Denies: Dryness, Rash Neurological: Denies: Balance problems, Double vision, Change in Speech, Confusion, Headaches, Incoordination Psychiatric: Denies: Anxiety, Depression Endocrine: Denies: Change in Body Habitus, Polydipsia, Polyuria VTE Information - Inpt Only VTE Present on Admission: No VTE Mechan Device Prophylaxis: None VTE Pharm Prophylaxis ordered?: No Patient Problems: Active and Suspected Problems (Last Updated 08/26/19 @ 14:26 by Linda Hernandes MD) Acute hepatitis (Acute) Pancytopenia (Acute) Infectious mononucleosis (Acute) - Physical Exam Vitals/I&O's: Vital Signs Temp Pulse Resp BP Pulse Ox 101.1 F H 100 18 133/94 H 96 08/26/19 09:26 08/26/19 14:01 08/26/19 14:01 08/26/19 14:01 08/26/19 14:01 Oxygen Delivery Method Room Air Weight: 176 lb 12.972 oz Body Mass Index (BMI) 28.5 Intake and Output for Last 24 Hours 08/24/19 08/25/19 08/26/19 23:59 23:59 23:59 Intake Total 1000 / 1000 Balance 1000 / 1000 General: Alert, Oriented x3, Cooperative, No apparent distress HEENT: Atraumatic, PERRLA, EOMI, Normocephalic Oral: Moist Mucosa, No Gingival or Mucosal Lesions/ Ulcerations Neck: Supple, No JVD, Negative Carotid Bruits, Trachea Midline, Thyroid Normal Size and Texture Lungs: Clear to auscultation, Normal air movement, No rhonchi, No wheeze, No rales Cardiovascular: Regular rate, Regular Rhythm, Normal S1, Normal S2, No murmurs, PMI Normal, Tachycardic Abdomen: Bowel Sounds Present, Soft, Non Tender, Non-Distended, No Hepato-splenomegaly, Obese Extremities: No clubbing, No cyanosis, No edema Skin: No rashes, No breakdown Lymphatic: No Cervical, Supraclavicular, or Inguinal Adenopathy Neurological: Cranial nerves II-XII grossly intact, Motor Exam 5/5 strength throughout Psych/Mental Status: Normal Affect, Appropriate, Alert and oriented to time, place, person, mood and affect Microbiology Past 72 Hours 08/26/19 08:24 Mucosa - Nose Respiratory Panel (PCR) - Final Laboratory Results 08/26/19 08:10: Monoscreen POSITIVE H 08/26/19 08:20: Urine Color ORANGE, Urine Clarity Cloudy, Urine pH 6.5, Ur Specific [place] 1.015, Urine Protein 100 H, Urine Glucose (UA) Normal, Urine Ketones 5 H, Urine Occult Blood 10 H, Urine Nitrite Positive H, Urine Bilirubin 6 H, Urine Urobilinogen 12 H, Ur Leukocyte Esterase 500 H, Urine RBC 0-5 SEEN, Urine WBC 5-10 SEEN, Ur Squamous Epith Cells 10-25 SEEN, Urine Bacteria 1+, Urine Mucus 1+, Urine Yeast RARE 08/26/19 08:40: WBC 2.9 L, RBC 4.04 L, Hgb 11.4 L, Hct 35.4 L, MCV 87.6, MCH 28.2, MCHC 32.2, RDW Std Deviation 39.9, RDW Coeff of Mery 12.5, Plt Count 92 L, MPV 11.1, Neut % (Auto) Not Reportable, Absolute Neuts (auto) 1.3 L, Absolute Lymphs (auto) 1.11, Total Counted 100, Neutrophils % (Manual) 38 L, Band Neutrophils % 5, Lymphocytes % (Manual) 38, Monocytes % (Manual) 15 H, Eosinophils % (Manual) 3, Metamyelocytes % 1, Diff Path Review May foll, Atypical Lymphocytes 2+, Platelet Estimate MOD DEC, Hypochromasia RARE 08/26/19 08:40: Sodium 139, Potassium 3.4 L, Chloride 104, Carbon Dioxide 27.0, Anion Gap 8, BUN 6 L, Creatinine 0.73, Estim Creat Clear Calc 108.37, Est GFR (MDRD) Af Amer 122, Est GFR (MDRD) Non-Af 101, BUN/Creatinine Ratio 8.2 L, Glucose 128 H, Calcium 8.6, Total Bilirubin 2.40 H, Direct Bilirubin 1.87 H, AST 97 H, ALT 122 H, Alkaline Phosphatase 121 H, Total Protein 7.1, Albumin 3.4, Globulin 3.7, Lipase 219 08/26/19 08:40: Serum , Qual NEGATIVE 08/26/19 09:50: Urine Color SEE COMMENT BELOW, Urine Clarity Sl. Cloudy, Urine pH 6.5, Ur Specific [place] 1.020, Urine Protein 30 H, Urine Glucose (UA) Normal, Urine Ketones Negative, Urine Occult Blood 10 H, Urine Nitrite Negative, Urine Bilirubin 6 H, Urine Urobilinogen 12 H, Ur Leukocyte Esterase 500 H, Urine RBC 0-5 SEEN, Urine WBC 5-10 SEEN, Ur Squamous Epith Cells 10-25 SEEN, Calcium Oxalate Crystal RARE, Urine Bacteria 1+, Urine Mucus 1+, Urine Yeast RARE 08/26/19 13:40: PT 13.9, INR 1.1, APTT 28.6 08/26/19 13:40: Lactic Acid 1.3 08/26/19 13:40: GGT 464 H Clinical Impression(s) from Imaging Studies Gallbladder Ultrasound 08/26/19 10:16 IMPRESSION: 1. Hepatomegaly. 2. Fatty infiltration of the liver. 3. No evidence of gallstones. Electronically Signed: Carlos Peacock MD at 11:32 EST Tel , Service support , Current Medications Sodium Chloride () 1,000 mls @ 150 mls/hr IV .[id number] JUANY Last Admin: 08/26/19 09:49 Dose: 150 mls/hr Documented by: Assessment/Plan All Active Problems (Last Updated 08/26/19 @ 14:26 by Linda Hernandes MD) Acute hepatitis (Acute) Pancytopenia (Acute) Infectious mononucleosis (Acute) This is a 28 years old female patient presented to the emergency because of 5 days history of fever, nausea, intermittent vomiting and headache, found to have elevated LFT in context of recent history of HIDA scan that was performed for abnormal LFT and also found to have leukopenia, thrombocytopenia and neutropenia and she was found to have infectious mononucleosis. #1 infectious mononucleosis/sepsis: Monospot test was positive. Patient is febrile, tachycardic, leukopenic and neutropenic. Lactic acid was normal. Plan: Admit to [facility] floor, telemetry, IV fluids, supportive treatment, ibuprofen PRN for pain and fever, isolation precautions, blood culture, urine culture, ultrasound abdomen to look for splenic enlargement, repeat CBC and CMP tomorrow morning. #2 leukopenia/mild neutropenia/thrombocytopenia: With fever, secondary to #1. Patient does have a history of chronic anemia and hemoglobin has been stable at his baseline. Leukopenia, neutropenia and thrombocytopenia are all acute. Pro time, PTT and INR were normal. Plan to monitor. #3 acute hepatitis: Secondary to infectious mononucleosis. It is obstructive pattern, total bilirubin is 2.4, direct bilirubin is 1.87 but ultrasound gallbladder revealed no gallstones, normal CBD diameter. Plan for IV fluids, supportive treatment, repeat LFT tomorrow morning. #4 abnormal HIDA scan: Initial plan was to take patient for upper scopic cholecystectomy because her symptoms started on the same day when she had a HIDA scan. Now, infectious mononucleosis can explain her acute hepatitis but less likely to explain her obstructive pattern. She denied any right upper quadrant abdominal pain or tenderness. Plan to monitor. #5 DVT prophylaxis: Low risk patient, no prophylaxis indicated. This note was generated with [employer] dictation software. It may contain incorrect words, spelling, and punctuation that were not noted in checking the note before signing. Code Visit Inpatient E&M: 39675 Init Hosp L3
--- NOTE | 2019-08-26 16:10 | US_ITS ---
STUDY: Focused ABDOMINAL ULTRASOUND - RIGHT UPPER QUADRANT REASON FOR VISIT: Female, 28 years old mononucleosis TECHNIQUE: Ultrasound evaluation of the right upper quadrant was performed with real-time and static may-scale imaging. TECHNICAL QUALITY: Adequate. COMPARISON: None. FINDINGS: Spleen appears normal measuring 12.2 x 7.7 x 6.8 cm. Right Kidney: Normal size of the right kidney. The right kidney measures 10.4 x 5.3 x 5 cm. Normal renal cortex. The right cortex measures 2.1 cm. There is no demonstrated renal mass or cyst. There is no right hydronephrosis. US/Spleen IMPRESSION: Minimal if any splenomegaly Electronically Signed: Drew Cedillo MD at 20:27 EST , Service support ,
[2019-08-26] MEDS: Ibuprofen 400 MG Tablet PO ×2 (17:15→21:26)
[2019-08-26] MEDS: 0.9% Normal Saline 1,000 ML 75 ML IV (17:53)
[2019-08-26] MEDS: 0.9% Saline Lock 10 ML Syringe IV (19:03)
[2019-08-26] MEDS: ALPRAZolam 0.5 MG Tablet PO (19:03)
[2019-08-27] VITALS (13 sets, daily range): BP systolic 118–138; BP diastolic 69–85; PULSE 86–122; RESP 14–18; TEMP 36.6–38.1; O2SAT 95–97
[2019-08-27] MEDS: Ondansetron 4 MG/2 ML Vial IV ×2 (02:57→12:34)
[2019-08-27] MEDS: Ibuprofen 400 MG Tablet PO ×2 (05:50→14:08)
[2019-08-27] MEDS: proMETHazine 25 MG/ML Syringe 12.5 MG IV ×2 (06:20→16:39)
[2019-08-27 06:32] LABS: Absolute Lymphocyte Count 1.98 X10^3/uL (0.83-4.51); Basophil# 0.03 X10^3/uL; Basophil% 0.9 % (0-1); Eosinophil# 0.01 X10^3/uL; Eosinophils% 0.3 % (0-5); Hematocrit 30.8 % (37-47); Lymphocyte # 1.98 X10^3/ul (4.0); Lymphocyte % 58.2 % (19-41); Mean Corp Hgb Conc 32.5 g/dL (32-36); Mean Corpuscular Hgb 28.3 pg (27.0-32.0); Mean Corpuscular Volume 87.3 fL (81-99); Mean Platelet Vol. 11.4 fl (6.2-12.0); Monocyte% 5.9 % (0-10); NRBC Flagged by Analyzer 0 % (0-5); Neutrophil # 1.03 X10^3/uL (2.7-7.7); Neutrophil % 30.3 % (47-70); POSITIVE COUNT YES; POSITIVE MORPHOLOGY YES; Platelet Count 84 K/mm3 (150-450); RBC Distribution Width CV 12.8 % (11.6-14.6); RBC Distribution Width SD 40.3 fl (35.1-43.9); Red Blood Count 3.53 M/mm3 (4.2-5.4); White Blood Count 3.4 K/mm3 (4.4-11.0)
[2019-08-27 06:53] LABS: Differential Indicated SCAN CRITERIA MET
[2019-08-27 06:55] LABS: ALB/GLOB Ratio 0.8 RATIO (0.9-2.4); AST(SGOT) 100 U/L (15-37); Alanine Aminotransfer ALT/SGPT 100 U/L (13-56); Albumin, Serum 2.7 g/dL (3.2-5.0); Alkaline Phosphatase 124 U/L (45-117); Anion Gap 7 (5-15); BUN 3 mg/dL (7-18); BUN/Creat Ratio 5.9 RATIO (10-20); Calcium,Total 7.7 mg/dL (8.5-10.1); Chloride 107 mmol/L (98-107); Creatinine, Serum 0.51 mg/dL (0.55-1.02); EST Glomerular Filtration Rate 154 mL/min (>60); Est Glom Filt Rate - Afr Amer 186 mL/min (>60); Estimated Creatinine Clearance 155.11 ml/min; Globulin 3.3 g/dL (2.2-4.2); Glucose 85 mg/dL (74-106); Sodium Level 139 mmol/L (136-145)
[2019-08-27 07:15] LABS: Differential Comment SCANNED; Reactive Lymphocyte 1+
--- NOTE | 2019-08-27 08:21 | PN_ITS ---
Patient Problems: Active and Suspected Problems (Last Updated 08/26/19 @ 14:26 by Linda Hernandes MD) Acute hepatitis (Acute) Pancytopenia (Acute) Infectious mononucleosis (Acute) Subjective: Chief complaint: Follow-up after admission for infectious mononucleosis, acute hepatitis, leukopenia, neutropenia and thrombocytopenia. Patient seen and examined. No acute events overnight. This morning, she complains of mild headache and intermittent nausea. She denies cough or sputum production. She denies abdominal pain, constipation or diarrhea. She has been afebrile overnight, blood pressure stable, pulse ox is 96% on room air. - Physical Exam Vitals/I&O's: Vital Signs Temp Pulse Resp BP Pulse Ox 97.9 F 95 14 119/77 96 08/27/19 07:35 08/27/19 07:35 08/27/19 07:35 08/27/19 07:35 08/27/19 07:35 Oxygen Delivery Method Room Air Weight: 176 lb 12.972 oz Body Mass Index (BMI) 28.5 Intake and Output for Last 24 Hours 08/25/19 08/26/19 08/27/19 23:59 23:59 23:59 Intake Total 2110.0 / 2110.0 1000 / 1000 Balance 2110.0 / 2110.0 1000 / 1000 General: Alert, Oriented x3, Cooperative, No apparent distress HEENT: Atraumatic, PERRLA, EOMI, Normocephalic Oral: Moist Mucosa, No Gingival or Mucosal Lesions/ Ulcerations Neck: Supple, No JVD, Negative Carotid Bruits, Trachea Midline, Thyroid Normal Size and Texture Lungs: Clear to auscultation, Normal air movement, No rhonchi, No wheeze, No rales Cardiovascular: Regular rate, Regular Rhythm, Normal S1, Normal S2, PMI Normal Abdomen: Bowel Sounds Present, Soft, Non Tender, Non-Distended, No Hepato- splenomegaly Extremities: No clubbing, No cyanosis, No edema Skin: No rashes, No breakdown Lymphatic: No Cervical, Supraclavicular, or Inguinal Adenopathy Neurological: Cranial nerves II-XII grossly intact, Neuro grossly intact Psych/Mental Status: Normal Affect, Appropriate Microbiology Past 72 Hours 08/26/19 08:24 Mucosa - Nose Respiratory Panel (PCR) - Final Laboratory Results 08/26/19 08:10: Monoscreen POSITIVE H 08/26/19 08:20: Urine Color ORANGE, Urine Clarity Cloudy, Urine pH 6.5, Ur Specific [place] 1.015, Urine Protein 100 H, Urine Glucose (UA) Normal, Urine Ketones 5 H, Urine Occult Blood 10 H, Urine Nitrite Positive H, Urine Bilirubin 6 H, Urine Urobilinogen 12 H, Ur Leukocyte Esterase 500 H, Urine RBC 0-5 SEEN, Urine WBC 5-10 SEEN, Ur Squamous Epith Cells 10-25 SEEN, Urine Bacteria 1+, Urine Mucus 1+, Urine Yeast RARE 08/26/19 08:40: WBC 2.9 L, RBC 4.04 L, Hgb 11.4 L, Hct 35.4 L, MCV 87.6, MCH 28.2, MCHC 32.2, RDW Std Deviation 39.9, RDW Coeff of Mery 12.5, Plt Count 92 L, MPV 11.1, Neut % (Auto) Not Reportable, Absolute Neuts (auto) 1.3 L, Absolute Lymphs (auto) 1.11, Total Counted 100, Neutrophils % (Manual) 38 L, Band Neutrophils % 5, Lymphocytes % (Manual) 38, Monocytes % (Manual) 15 H, Eosinophils % (Manual) 3, Metamyelocytes % 1, Diff Path Review May foll, Atypical Lymphocytes 2+, Platelet Estimate MOD DEC, Hypochromasia RARE 08/26/19 08:40: Sodium 139, Potassium 3.4 L, Chloride 104, Carbon Dioxide 27.0, Anion Gap 8, BUN 6 L, Creatinine 0.73, Estim Creat Clear Calc 108.37, Est GFR (MDRD) Af Amer 122, Est GFR (MDRD) Non-Af 101, BUN/Creatinine Ratio 8.2 L, Glucose 128 H, Calcium 8.6, Total Bilirubin 2.40 H, Direct Bilirubin 1.87 H, AST 97 H, ALT 122 H, Alkaline Phosphatase 121 H, Total Protein 7.1, Albumin 3.4, Globulin 3.7, Lipase 219 08/26/19 08:40: Serum , Qual NEGATIVE 08/26/19 09:50: Urine Color SEE COMMENT BELOW, Urine Clarity Sl. Cloudy, Urine pH 6.5, Ur Specific [place] 1.020, Urine Protein 30 H, Urine Glucose (UA) Normal, Urine Ketones Negative, Urine Occult Blood 10 H, Urine Nitrite Negative, Urine Bilirubin 6 H, Urine Urobilinogen 12 H, Ur Leukocyte Esterase 500 H, Urine RBC 0-5 SEEN, Urine WBC 5-10 SEEN, Ur Squamous Epith Cells 10-25 SEEN, Calcium Oxalate Crystal RARE, Urine Bacteria 1+, Urine Mucus 1+, Urine Yeast RARE 08/26/19 13:40: PT 13.9, INR 1.1, APTT 28.6 08/26/19 13:40: Lactic Acid 1.3 08/26/19 13:40: GGT 464 H 08/27/19 06:01: WBC 3.4 L, RBC 3.53 L, Hgb 10.0 L, Hct 30.8 L, MCV 87.3, MCH 28.3, MCHC 32.5, RDW Std Deviation 40.3, RDW Coeff of Mery 12.8, Plt Count 84 L, MPV 11.4, Immature Gran % (Auto) 4.400 H, Neut % (Auto) 30.3 L, Lymph % (Auto) 58.2 H, [place] % (Auto) 5.9, Eos % (Auto) 0.3, Baso % (Auto) 0.9, Absolute Neuts (auto) 1.0 L, Absolute Lymphs (auto) 1.98, Nucleated RBC % 0, Differential Comment SCANNED, Reactive Lymphocytes 1+ 08/27/19 06:01: Sodium 139, Potassium 4.0, Chloride 107, Carbon Dioxide 25.0, Anion Gap 7, BUN 3 L, Creatinine 0.51 L, Estim Creat Clear Calc 155.11, Est GFR (MDRD) Af Amer 186, Est GFR (MDRD) Non-Af 154, BUN/Creatinine Ratio 5.9 L, Glucose 85, Calcium 7.7 L, Total Bilirubin 2.80 H, AST 100 H, ALT 100 H, Alkaline Phosphatase 124 H, Total Protein 6.0 L, Albumin 2.7 L, Globulin 3.3, Albumin/Globulin Ratio 0.8 L Clinical Impression(s) from Imaging Studies Gallbladder Ultrasound 08/26/19 10:16 IMPRESSION: 1. Hepatomegaly. 2. Fatty infiltration of the liver. 3. No evidence of gallstones. Electronically Signed: Carlos Peacock MD at 11:32 EST Tel , Service support , Spleen Ultrasound 08/26/19 16:10 IMPRESSION: Minimal if any splenomegaly Electronically Signed: Drew Cedillo MD at 20:27 EST , Service support , Current Medications Alprazolam (Xanax) 0.5 mg PO BID PRN PRN PRN Reason: ANXIETY/AGITATION Last Admin: 08/26/19 19:03 Dose: 0.5 mg Documented by: Ibuprofen (Motrin) 400 mg PO Q4H PRN PRN PRN Reason: Pain Score 1-3/Temp > 100.7 F Last Admin: 08/27/19 05:50 Dose: 400 mg Documented by: Ondansetron HCl (Zofran) 4 mg IV Q6H PRN PRN PRN Reason: NAUSEA/VOMITING Promethazine HCl (Phenergan) 12.5 mg IV Q6H PRN PRN PRN Reason: NAUSEA/VOMITING Last Admin: 08/27/19 06:20 Dose: 12.5 mg Documented by: Sodium Chloride () 10 - 40 ml IV UD PRN PRN Reason: SALINE FLUSH Last Admin: 08/26/19 19:03 Dose: 10 ml Documented by: Medical Necessity - Tobacco Use Smoking Status: Never smoker Assessment/Plan All Active Problems (Last Updated 08/26/19 @ 14:26 by Linda Hernandes MD) Acute hepatitis (Acute) Pancytopenia (Acute) Infectious mononucleosis (Acute) This is a 28 years old female patient presented to the emergency because of 5 days history of fever, nausea, intermittent vomiting and headache, found to have elevated LFT in context of recent history of HIDA scan that was performed for abnormal LFT and also found to have leukopenia, thrombocytopenia and neutropenia and she was found to have infectious mononucleosis. #1 infectious mononucleosis/sepsis: Monospot test was positive. Maximum temperature was 100.3 Fahrenheit and it was yesterday evening. Other vital signs are stable. WBC improved but absolute neutrophil count is down to 1000. Ultrasound abdomen revealed normal size of the spleen. Respiratory panel for viruses were negative. Blood and urine cultures are pending. Plan to keep monitoring, repeat CBC and CMP tomorrow morning, anticipate discharge home tomorrow. #2 leukopenia/mild neutropenia/thrombocytopenia: secondary to #1. WBC improved, absolute neutrophil count is down to 1000. Platelet count is down to 84,000. Patient does have a history of chronic anemia and hemoglobin has been stable at his baseline. No indication to start IV antibiotics since patient has been afebrile since yesterday afternoon. Cultures are pending. Plan to repeat CBC tomorrow morning. #3 acute hepatitis: Secondary to infectious mononucleosis. Total bilirubin is trending up, liver transaminases and alkaline phosphatase remain the most same. Patient denies any right upper quadrant abdominal pain. Plan to repeat LFT, direct bilirubin tomorrow morning. #4 abnormal HIDA scan: Plan to follow-up with as outpatient. #5 DVT prophylaxis: Low risk patient, no prophylaxis indicated. This note was generated with [employer] dictation software. It may contain incorrect words, spelling, and punctuation that were not noted in checking the note before signing. Code Visit Inpatient E&M: 33730 Subs Hosp L2
--- NOTE | 2019-08-27 10:51 | PCM.PN.SRG ---
Patient Problems: Active and Suspected Problems (Last Updated 08/26/19 @ 14:26 by Linda Hernandes MD) Acute hepatitis (Acute) Pancytopenia (Acute) Infectious mononucleosis (Acute) Subjective: Feels better today. Still having some right upper quadrant abdominal pain feeling nauseated after eating Objective: Abdomen is soft minimal tenderness in the right upper quadrant No rebound guarding or peritoneal signs identified - Physical Exam Vitals/I&O's: Vital Signs Temp Pulse Resp BP Pulse Ox 97.9 F 95 14 119/77 96 08/27/19 07:35 08/27/19 07:35 08/27/19 07:35 08/27/19 07:35 08/27/19 07:35 Oxygen Delivery Method Room Air Weight: 176 lb 12.972 oz Body Mass Index (BMI) 28.5 Intake and Output for Last 24 Hours 08/25/19 08/26/19 08/27/19 23:59 23:59 23:59 Intake Total 2110.0 / 2110.0 1000 / 1000 Balance 2110.0 / 2110.0 1000 / 1000 Microbiology Past 72 Hours 08/26/19 08:24 Mucosa - Nose Respiratory Panel (PCR) - Final Laboratory Results 08/26/19 08:10: Monoscreen POSITIVE H 08/26/19 13:40: PT 13.9, INR 1.1, APTT 28.6 08/26/19 13:40: Lactic Acid 1.3 08/26/19 13:40: GGT 464 H 08/27/19 06:01: WBC 3.4 L, RBC 3.53 L, Hgb 10.0 L, Hct 30.8 L, MCV 87.3, MCH 28.3, MCHC 32.5, RDW Std Deviation 40.3, RDW Coeff of Mery 12.8, Plt Count 84 L, MPV 11.4, Immature Gran % (Auto) 4.400 H, Neut % (Auto) 30.3 L, Lymph % (Auto) 58.2 H, [place] % (Auto) 5.9, Eos % (Auto) 0.3, Baso % (Auto) 0.9, Absolute Neuts (auto) 1.0 L, Absolute Lymphs (auto) 1.98, Nucleated RBC % 0, Differential Comment SCANNED, Reactive Lymphocytes 1+ 08/27/19 06:01: Sodium 139, Potassium 4.0, Chloride 107, Carbon Dioxide 25.0, Anion Gap 7, BUN 3 L, Creatinine 0.51 L, Estim Creat Clear Calc 155.11, Est GFR (MDRD) Af Amer 186, Est GFR (MDRD) Non-Af 154, BUN/Creatinine Ratio 5.9 L, Glucose 85, Calcium 7.7 L, Total Bilirubin 2.80 H, AST 100 H, ALT 100 H, Alkaline Phosphatase 124 H, Total Protein 6.0 L, Albumin 2.7 L, Globulin 3.3, Albumin/Globulin Ratio 0.8 L Current Medications Alprazolam (Xanax) 0.5 mg PO BID PRN PRN PRN Reason: ANXIETY/AGITATION Last Admin: 08/26/19 19:03 Dose: 0.5 mg Documented by: Ibuprofen (Motrin) 400 mg PO Q4H PRN PRN PRN Reason: Pain Score 1-3/Temp > 100.7 F Last Admin: 08/27/19 05:50 Dose: 400 mg Documented by: Ondansetron HCl (Zofran) 4 mg IV Q6H PRN PRN PRN Reason: NAUSEA/VOMITING Promethazine HCl (Phenergan) 12.5 mg IV Q6H PRN PRN PRN Reason: NAUSEA/VOMITING Last Admin: 08/27/19 06:20 Dose: 12.5 mg Documented by: Sodium Chloride () 10 - 40 ml IV UD PRN PRN Reason: SALINE FLUSH Last Admin: 08/26/19 19:03 Dose: 10 ml Documented by: Medical Necessity - Tobacco Use Smoking Status: Never smoker Assessment/Plan All Active Problems (Last Updated 08/26/19 @ 14:26 by Linda Hernandes MD) Acute hepatitis (Acute) Pancytopenia (Acute) Infectious mononucleosis (Acute) Liver function test is still remain elevated. Clinically doing better. Anticipate 1 more day in the hospital stay.
[2019-08-27] MEDS: 0.9% Saline Lock 10 ML Syringe IV ×2 (12:34→16:39)
[2019-08-27] MEDS: ALPRAZolam 0.5 MG Tablet PO (12:34)
[2019-08-27] MEDS: 0.9% Normal Saline 1,000 ML 100 ML IV ×2 (12:53→22:32)
[2019-08-28] VITALS (11 sets, daily range): BP systolic 107–136; BP diastolic 67–87; PULSE 84–112; RESP 14–18; TEMP 36.7–38; O2SAT 93–97
[2019-08-28] MEDS: Ibuprofen 400 MG Tablet PO ×4 (00:09→20:34)
[2019-08-28] MEDS: Ondansetron 4 MG/2 ML Vial IV ×2 (04:47→16:11)
--- NOTE | 2019-08-28 06:22 | PCM.PN.SRG ---
Patient Problems: Active and Suspected Problems (Last Updated 08/26/19 @ 14:26 by Linda Hernandes MD) Acute hepatitis (Acute) Pancytopenia (Acute) Infectious mononucleosis (Acute) Subjective: Patient still concerned about how poorly she is feeling. Headache. Nausea. Some intermittent twinges of right upper quadrant pain. Anorexia. - Physical Exam Vitals/I&O's: Vital Signs Temp Pulse Resp BP Pulse Ox 98.7 F 90 14 107/67 93 08/28/19 03:10 08/28/19 04:00 08/28/19 03:10 08/28/19 03:10 08/28/19 03:10 Oxygen Delivery Method Room Air Weight: 176 lb 12.972 oz Body Mass Index (BMI) 28.5 Intake and Output for Last 24 Hours 08/26/19 08/27/19 08/28/19 23:59 23:59 23:59 Intake Total 2110.0 / 2110.0 2465 / 2465 600 / 600 Output Total 300 / 300 600 / 600 Balance 2110.0 / 2110.0 2165 / 2165 0 / 0 Abdomen: Bowel Sounds Present, Soft, Non Tender, Non-Distended Microbiology Past 72 Hours 08/26/19 08:24 Mucosa - Nose Respiratory Panel (PCR) - Final Laboratory Results 08/27/19 06:01: WBC 3.4 L, RBC 3.53 L, Hgb 10.0 L, Hct 30.8 L, MCV 87.3, MCH 28.3, MCHC 32.5, RDW Std Deviation 40.3, RDW Coeff of Mery 12.8, Plt Count 84 L, MPV 11.4, Immature Gran % (Auto) 4.400 H, Neut % (Auto) 30.3 L, Lymph % (Auto) 58.2 H, [place] % (Auto) 5.9, Eos % (Auto) 0.3, Baso % (Auto) 0.9, Absolute Neuts (auto) 1.0 L, Absolute Lymphs (auto) 1.98, Nucleated RBC % 0, Differential Comment SCANNED, Reactive Lymphocytes 1+ 08/27/19 06:01: Sodium 139, Potassium 4.0, Chloride 107, Carbon Dioxide 25.0, Anion Gap 7, BUN 3 L, Creatinine 0.51 L, Estim Creat Clear Calc 155.11, Est GFR (MDRD) Af Amer 186, Est GFR (MDRD) Non-Af 154, BUN/Creatinine Ratio 5.9 L, Glucose 85, Calcium 7.7 L, Total Bilirubin 2.80 H, AST 100 H, ALT 100 H, Alkaline Phosphatase 124 H, Total Protein 6.0 L, Albumin 2.7 L, Globulin 3.3, Albumin/Globulin Ratio 0.8 L 08/28/19 06:10: WBC Pending, RBC Pending, Hgb Pending, Hct Pending, MCV Pending, MCH Pending, MCHC Pending, RDW Std Deviation Pending, RDW Coeff of Mery Pending, Plt Count Pending, Neut % (Auto) Pending, Absolute Neuts (auto) Pending 08/28/19 06:10: Sodium Pending, Potassium Pending, Chloride Pending, Carbon Dioxide Pending, Anion Gap Pending, BUN Pending, Creatinine Pending, Est GFR (MDRD) Af Amer Pending, Est GFR (MDRD) Non-Af Pending, BUN/Creatinine Ratio Pending, Glucose Pending, Calcium Pending, Total Bilirubin Pending, Direct Bilirubin Pending, AST Pending, ALT Pending, Alkaline Phosphatase Pending, Total Protein Pending, Albumin Pending Current Medications Alprazolam (Xanax) 0.5 mg PO BID PRN PRN PRN Reason: ANXIETY/AGITATION Last Admin: 08/27/19 12:34 Dose: 0.5 mg Documented by: Sodium Chloride () 1,000 mls @ 100 mls/hr IV .Q10H JUANY Stop: 08/28/19 08:44 Last Admin: 08/27/19 22:32 Dose: 100 mls/hr Documented by: Ibuprofen (Motrin) 400 mg PO Q4H PRN PRN PRN Reason: Pain Score 1-3/Temp > 100.7 F Last Admin: 08/28/19 06:01 Dose: 400 mg Documented by: Ondansetron HCl (Zofran) 4 mg IV Q6H PRN PRN PRN Reason: NAUSEA/VOMITING Last Admin: 08/28/19 04:47 Dose: 4 mg Documented by: Promethazine HCl (Phenergan) 12.5 mg IV Q6H PRN PRN PRN Reason: NAUSEA/VOMITING Last Admin: 08/27/19 16:39 Dose: 12.5 mg Documented by: Sodium Chloride () 10 - 40 ml IV UD PRN PRN Reason: SALINE FLUSH Last Admin: 08/27/19 16:39 Dose: 20 ml Documented by: Medical Necessity - Tobacco Use Smoking Status: Never smoker Assessment/Plan All Active Problems (Last Updated 08/26/19 @ 14:26 by Linda Hernandes MD) Acute hepatitis (Acute) Pancytopenia (Acute) Infectious mononucleosis (Acute) Infectious mononucleosis. Today's laboratory is pending. The patient is very much concerned about not feeling any better since her admission to the emergency room on Wednesday. I explained that her spleen appear to be reasonably normal on ultrasound. I explained to her that the abnormal liver function tests are felt to be secondary to viral phenomena and acute hepatitis rather than to an acute surgical illness. I again explained that she has a viral illness and that antibiotics are not effective. I believe that both the patient and her are frustrated by the discussion that this may take weeks or longer for resolution. Will follow now more distantly Kj Leija M.D., F.A.C.S.
[2019-08-28 06:29] LABS: Absolute Lymphocyte Count 2.89 X10^3/uL (0.83-4.51); Absolute Neutrophil Count 1.3 X10^3/uL (2.0-7.7); Basophil# 0.05 X10^3/uL; Basophil% 1.1 % (0-1); Hematocrit 30.5 % (37-47); Hemoglobin 9.9 g/dL (12.0-15.0); Lymphocyte # 2.89 X10^3/ul (4.0); Lymphocyte % 61.9 % (19-41); Mean Corp Hgb Conc 32.5 g/dL (32-36); Mean Corpuscular Hgb 28.9 pg (27.0-32.0); Mean Corpuscular Volume 89.2 fL (81-99); Mean Platelet Vol. 11.4 fl (6.2-12.0); Monocyte# 0.24 X10^3/uL; Monocyte% 5.1 % (0-10); NRBC Flagged by Analyzer 0 % (0-5); Neutrophil # 1.31 X10^3/uL (2.7-7.7); POSITIVE COUNT YES; POSITIVE MORPHOLOGY YES; Platelet Count 90 K/mm3 (150-450); RBC Distribution Width CV 13.1 % (11.6-14.6); RBC Distribution Width SD 41.4 fl (35.1-43.9); Red Blood Count 3.42 M/mm3 (4.2-5.4); White Blood Count 4.7 K/mm3 (4.4-11.0)
[2019-08-28 06:49] LABS: ALB/GLOB Ratio 0.8 RATIO (0.9-2.4); AST(SGOT) 126 U/L (15-37); Alanine Aminotransfer ALT/SGPT 107 U/L (13-56); Albumin, Serum 2.5 g/dL (3.2-5.0); Alkaline Phosphatase 157 U/L (45-117); Anion Gap 9 (5-15); BUN 5 mg/dL (7-18); BUN/Creat Ratio 10.2 RATIO (10-20); Bilirubin, Direct 2.86 mg/dL (0.00-0.30); Calcium,Total 7.4 mg/dL (8.5-10.1); Chloride 106 mmol/L (98-107); Creatinine, Serum 0.49 mg/dL (0.55-1.02); EST Glomerular Filtration Rate 160 mL/min (>60); Est Glom Filt Rate - Afr Amer 193 mL/min (>60); Estimated Creatinine Clearance 161.44 ml/min; Globulin 3.1 g/dL (2.2-4.2); Glucose 90 mg/dL (74-106); Potassium 3.7 mmol/L (3.5-5.1); Protein, Total 5.6 g/dL (6.4-8.2); Sodium Level 139 mmol/L (136-145)
[2019-08-28 07:04] LABS: Differential Indicated SCAN CRITERIA MET
[2019-08-28 07:23] LABS: Atypical Lymphocyte 1+ %
--- NOTE | 2019-08-28 09:27 | PCM.PN.HOSP ---
Patient Problems: Active and Suspected Problems (Last Updated 08/26/19 @ 14:26 by Linda Hernandes MD) Acute hepatitis (Acute) Pancytopenia (Acute) Infectious mononucleosis (Acute) Subjective: CC follow-up infectious mononucleosis Patient is a 28-year-old lady who presented with a 5-day history of fever generalized malaise intractable nausea vomiting found to have elevated liver function test on admission as well as pancytopenia was diagnosed with infectious mononucleosis admitted to regular nursing floor where she is currently being managed Patient complaining of dysuria requested for urinalysis with reflex culture Objective: GENERAL: cooperative HEENT: flushed EYES; icteric, Normal Conjunctiva NECK; supple, normal thyroid, RESPIRATORY: Diminished to auscultation CARDIOVASCULAR: Regular S1 S2, GI: soft, normoactive bowel sounds, : No Renal angle tenderness; EXTREMITIES: No edema, no clubbing, MUSCULOSKELETAL: no muscle waisting NEURO: Awake; no lateralizing signs. SKIN: No Rash PSYCH; Flat affect Vitals/I&O's: Vital Signs Temp Pulse Resp BP Pulse Ox 98.0 F 98 18 125/87 H 97 08/28/19 08:52 08/28/19 08:52 08/28/19 08:52 08/28/19 08:52 08/28/19 08:52 Oxygen Delivery Method Room Air Weight: 80.2 kg Body Mass Index (BMI) 28.5 Intake and Output for Last 24 Hours 08/26/19 08/27/19 08/28/19 23:59 23:59 23:59 Intake Total 2110.0 / 2110.0 2465 / 2465 1600 / 1600 Output Total 300 / 300 600 / 600 Balance 2110.0 / 2110.0 2165 / 2165 1000 / 1000 Microbiology Past 72 Hours 08/26/19 08:24 Mucosa - Nose Respiratory Panel (PCR) - Final Laboratory Results 08/28/19 06:10: WBC 4.7, RBC 3.42 L, Hgb 9.9 L, Hct 30.5 L, MCV 89.2, MCH 28.9, MCHC 32.5, RDW Std Deviation 41.4, RDW Coeff of Mery 13.1, Plt Count 90 L, MPV 11.4, Immature Gran % (Auto) 3.900 H, Neut % (Auto) 28.0 L, Lymph % (Auto) 61.9 H, [place] % (Auto) 5.1, Eos % (Auto) 0.0, Baso % (Auto) 1.1 H, Absolute Neuts (auto) 1.3 L, Absolute Lymphs (auto) 2.89, Nucleated RBC % 0, Atypical Lymphocytes 1+ 08/28/19 06:10: Sodium 139, Potassium 3.7, Chloride 106, Carbon Dioxide 24.0, Anion Gap 9, BUN 5 L, Creatinine 0.49 L, Estim Creat Clear Calc 161.44, Est GFR (MDRD) Af Amer 193, Est GFR (MDRD) Non-Af 160, BUN/Creatinine Ratio 10.2, Glucose 90, Calcium 7.4 L, Total Bilirubin 3.30 H, Direct Bilirubin 2.86 H, AST 126 H, ALT 107 H, Alkaline Phosphatase 157 H, Total Protein 5.6 L, Albumin 2.5 L, Globulin 3.1, Albumin/Globulin Ratio 0.8 L Current Medications Alprazolam (Xanax) 0.5 mg PO BID PRN PRN PRN Reason: ANXIETY/AGITATION Last Admin: 08/27/19 12:34 Dose: 0.5 mg Documented by: Ibuprofen (Motrin) 400 mg PO Q4H PRN PRN PRN Reason: Pain Score 1-3/Temp > 100.7 F Last Admin: 08/28/19 06:01 Dose: 400 mg Documented by: Ondansetron HCl (Zofran) 4 mg IV Q6H PRN PRN PRN Reason: NAUSEA/VOMITING Last Admin: 08/28/19 04:47 Dose: 4 mg Documented by: Promethazine HCl (Phenergan) 12.5 mg IV Q6H PRN PRN PRN Reason: NAUSEA/VOMITING Last Admin: 08/27/19 16:39 Dose: 12.5 mg Documented by: Sodium Chloride () 10 - 40 ml IV UD PRN PRN Reason: SALINE FLUSH Last Admin: 08/27/19 16:39 Dose: 20 ml Documented by: STROKE Vital Signs/Narrative: Vital Signs Temp Pulse Resp BP Pulse Ox 08/28/19 08:52 98.0 F 98 18 125/87 H 97 08/28/19 07:30 104 H 08/28/19 07:09 93 Medical Necessity - Tobacco Use Smoking Status: Never smoker Assessment/Plan All Active Problems (Last Updated 08/26/19 @ 14:26 by Linda Hernandes MD) Acute hepatitis (Acute) Pancytopenia (Acute) Infectious mononucleosis (Acute) Patient is a 28-year-old lady who presented with a 5-day history of fever generalized malaise intractable nausea vomiting found to have elevated liver function test on admission as well as pancytopenia was diagnosed with infectious mononucleosis admitted to regular nursing floor where she is currently being managed 1. Infectious mononucleosis ~ Admitted to regular nursing floor for symptomatic management ultrasound of the abdomen demonstrated normal-sized spleen. 2. Acute dysuria ~ requested for urinalysis to rule out acute cystitis 3. Pancytopenia ~ with leukopenia, mild neutropenia and trouble cytopenia secondary to #1 monitoring counts 4. Acute hepatitis ~secondary to infectious mononucleosis; symptomatic management 5. Abnormal HIDA scan ~patient was seen in consultation by Dr. Landa's notes and recommendations reviewed 6. DVT prophylaxis ~ low risk did encourage early ambulation Code Visit Inpatient E&M: 46076 Subs Hosp L2
[2019-08-28 10:50] LABS: Mucous, Urine 0 SEEN /hpf (<or=2+)
[2019-08-28 10:57] LABS: Color, Urine Yellow (Yellow); Glucose, Dipstick Normal (Normal); Leukocyte Esterase-Dipstick 100 /ul (Negative); Nitrite-Dipstick Negative (Negative); Occult Blood-Urine 25 /ul (Negative); Protein-Dipstick 30 mg/dl (Negative); Urine Clarity Sl. Cloudy (Clear); Urine Urobilinogen 8 mg/dl (Normal); Urine pH 6.5 (5.0 - 8.0)
[2019-08-28 10:58] LABS: Urine Bilirubin Dipstick 3 mg/dL (Negative)
[2019-08-28 11:00] LABS: Ketone-Dipstick 150 mg/dl (Negative)
[2019-08-28 11:02] LABS: Pathologist Review Reviewed
[2019-08-28 11:02] LABS: Bacteria 1+ /hpf (None Seen); Red Blood Cells-Urine 0-5 SEEN /hpf (0-5); Squamous Epithelial Cells - UA 0-5 SEEN /hpf (5-10); White Blood Cells 10-25 SEEN /hpf (0-5)
--- NOTE | 2019-08-28 11:50 | CASEMGMT ---
RN NICO Face to Face with patient for initial transition planning/care coordination assessment. RN CM introduced self and role at [facility]. Patient lying in bed, alert and oriented. Patient willing to participate in assessment and is able to answer all questions appropriately. Care providers, pharmacy, and demographics verified. Patient wishes to discharge home, denies need for home health at this time. Patient states she has no further needs or concerns at this time. CM to follow for discharge planning needs that may arise. PCP: Mana Specialists: surgeon Miguel Leija [facility] Prescription Benefit: yes Living Will/HPOA: yes, Jarred Rea LNOK: Living Arrangements: Patient lives with in 1 story home with 2 steps to enter the home. Transportation: self/ DME/HHC: Patient denies need for DME or HHC at this time. Disposition Plan: Patient to discharge home with family support and follow-up plans in place. Chantel LIN, RN, CM
[2019-08-28] MEDS: 0.9% Saline Lock 10 ML Syringe IV ×4 (12:56→20:36)
[2019-08-28] MEDS: proMETHazine 25 MG/ML Syringe 12.5 MG IV ×2 (12:56→20:35)
[2019-08-28] MEDS: ALPRAZolam 0.5 MG Tablet PO (16:07)
--- NOTE | 2019-08-28 18:26 | EKG12_ITS ---
Test Reason : Blood Pressure : / mmHG Vent. Rate : 104 BPM Atrial Rate : 104 BPM P-R Int : 168 ms QRS Dur : 084 ms QT Int : 322 ms P-R-T Axes : 041 042 037 degrees QTc Int : 423 ms Sinus tachycardia Nonspecific T wave abnormality Abnormal ECG Confirmed by JULIA SANZ, LINDA ([id number]), purchasing expeditor LEVI WATKINS ([id number]) on 08/30/2019 2:16:20 PM Referred By: Linda Heranndes Confirmed By:LINDA DUMONT MD
[2019-08-29] VITALS (7 sets, daily range): BP systolic 119–140; BP diastolic 70–98; PULSE 94–100; RESP 18; TEMP 36.7–37.2; O2SAT 93–98
[2019-08-29] MEDS: Ibuprofen 400 MG Tablet PO ×4 (02:34→21:20)
[2019-08-29] MEDS: proMETHazine 25 MG/ML Syringe 12.5 MG IV (06:31)
[2019-08-29] MEDS: 0.9% Saline Lock 10 ML Syringe IV ×3 (06:32→10:22)
[2019-08-29 06:36] LABS: Absolute Lymphocyte Count 3.93 X10^3/uL (0.83-4.51); Absolute Neutrophil Count 1.6 X10^3/uL (2.0-7.7); Basophil# 0.05 X10^3/uL; Basophil% 0.7 % (0-1); Eosinophil# 0.02 X10^3/uL; Eosinophils% 0.3 % (0-5); Hematocrit 32.2 % (37-47); Hemoglobin 10.3 g/dL (12.0-15.0); Lymphocyte # 3.93 X10^3/ul (4.0); Lymphocyte % 53.7 % (19-41); Mean Corpuscular Hgb 28.3 pg (27.0-32.0); Mean Corpuscular Volume 88.5 fL (81-99); Mean Platelet Vol. 10.7 fl (6.2-12.0); Monocyte# 1.37 X10^3/uL; Monocyte% 18.7 % (0-10); NRBC Flagged by Analyzer 0 % (0-5); Neutrophil # 1.62 X10^3/uL (2.7-7.7); Neutrophil % 22.1 % (47-70); POSITIVE MORPHOLOGY YES; Platelet Count 115 K/mm3 (150-450); RBC Distribution Width CV 13.3 % (11.6-14.6); RBC Distribution Width SD 42.1 fl (35.1-43.9); Red Blood Count 3.64 M/mm3 (4.2-5.4); White Blood Count 7.3 K/mm3 (4.4-11.0)
[2019-08-29 06:46] LABS: Differential Indicated SCAN CRITERIA MET
[2019-08-29 07:17] LABS: ALB/GLOB Ratio 0.7 RATIO (0.9-2.4); AST(SGOT) 148 U/L (15-37); Alanine Aminotransfer ALT/SGPT 120 U/L (13-56); Albumin, Serum 2.6 g/dL (3.2-5.0); Alkaline Phosphatase 217 U/L (45-117); Anion Gap 9 (5-15); BUN 7 mg/dL (7-18); BUN/Creat Ratio 12.5 RATIO (10-20); Calcium,Total 7.8 mg/dL (8.5-10.1); Chloride 103 mmol/L (98-107); Creatinine, Serum 0.56 mg/dL (0.55-1.02); EST Glomerular Filtration Rate 137 mL/min (>60); Est Glom Filt Rate - Afr Amer 166 mL/min (>60); Estimated Creatinine Clearance 141.26 ml/min; Globulin 3.7 g/dL (2.2-4.2); Glucose 88 mg/dL (74-106); Magnesium 2.1 mg/dL (1.6-2.6); Potassium 3.5 mmol/L (3.5-5.1); Protein, Total 6.3 g/dL (6.4-8.2); Sodium Level 137 mmol/L (136-145)
--- NOTE | 2019-08-29 07:21 | PCM.PN.HOSP ---
Patient Problems: Active and Suspected Problems (Last Updated 08/26/19 @ 14:26 by Linda Hernandes MD) Acute hepatitis (Acute) Pancytopenia (Acute) Infectious mononucleosis (Acute) Subjective: CC follow-up infectious mononucleosis cystitis Patient urinalysis obtained the day prior came back consistent with cystitis subsequently started on Rocephin cultures sent awaiting results. Patient LFTs continue to trend up. Objective: GENERAL: cooperative HEENT: flushed EYES; icteric, Normal Conjunctiva NECK; supple, normal thyroid, RESPIRATORY: Diminished to auscultation CARDIOVASCULAR: Regular S1 S2, GI: soft, normoactive bowel sounds, : No Renal angle tenderness; EXTREMITIES: No edema, no clubbing, MUSCULOSKELETAL: no muscle waisting NEURO: Awake; no lateralizing signs. SKIN: No Rash PSYCH; Flat affect Vitals/I&O's: Vital Signs Temp Pulse Resp BP Pulse Ox 98.2 F 94 18 124/70 H 93 08/29/19 02:26 08/29/19 04:14 08/29/19 02:26 08/29/19 02:26 08/29/19 02:26 Oxygen Delivery Method Room Air Weight: 80.2 kg Body Mass Index (BMI) 28.5 Intake and Output for Last 24 Hours 08/27/19 08/28/19 08/29/19 23:59 23:59 23:59 Intake Total 2465 / 2465 2631.5 / 2931.5 500 / 500 Output Total 300 / 300 1100 / 1300 600 / 600 Balance 2165 / 2165 1531.5 / 1631.5 -100 / -100 Microbiology Past 72 Hours 08/26/19 09:50 Urine, Clean Catch Urine Culture - Final Presumptive C albicans 08/26/19 08:24 Mucosa - Nose Respiratory Panel (PCR) - Final Laboratory Results 08/26/19 08:40: Diff Path Review Reviewed 08/28/19 06:10: Atypical Lymphocytes 1+ 08/28/19 10:30: Urine Color Yellow, Urine Clarity Sl. Cloudy, Urine pH 6.5, Ur Specific [place] 1.010, Urine Protein 30 H, Urine Glucose (UA) Normal, Urine Ketones 150 H, Urine Occult Blood 25 H, Urine Nitrite Negative, Urine Bilirubin 3 H, Urine Urobilinogen 8 H, Ur Leukocyte Esterase 100 H, Urine RBC 0-5 SEEN, Urine WBC 10-25 SEEN, Ur Squamous Epith Cells 0-5 SEEN, Urine Bacteria 1+, Urine Mucus 0 SEEN 08/29/19 06:22: WBC 7.3, RBC 3.64 L, Hgb 10.3 L, Hct 32.2 L, MCV 88.5, MCH 28.3, MCHC 32.0, RDW Std Deviation 42.1, RDW Coeff of Mery 13.3, Plt Count 115 L, MPV 10.7, Immature Gran % (Auto) 4.500 H, Neut % (Auto) 22.1 L, Lymph % (Auto) 53.7 H, [place] % (Auto) 18.7 H, Eos % (Auto) 0.3, Baso % (Auto) 0.7, Absolute Neuts (auto) 1.6 L, Absolute Lymphs (auto) 3.93, Nucleated RBC % 0 08/29/19 06:22: Sodium 137, Potassium 3.5, Chloride 103, Carbon Dioxide 25.0, Anion Gap 9, BUN 7, Creatinine 0.56, Estim Creat Clear Calc 141.26, Est GFR (MDRD) Af Amer 166, Est GFR (MDRD) Non-Af 137, BUN/Creatinine Ratio 12.5, Glucose 88, Calcium 7.8 L, Magnesium 2.1, Total Bilirubin 4.00 H, AST 148 H, ALT 120 H, Alkaline Phosphatase 217 H, Total Protein 6.3 L, Albumin 2.6 L, Globulin 3.7, Albumin/Globulin Ratio 0.7 L Current Medications Alprazolam (Xanax) 0.5 mg PO BID PRN PRN PRN Reason: ANXIETY/AGITATION Last Admin: 08/28/19 16:07 Dose: 0.5 mg Documented by: Ceftriaxone Sodium 1 gm/ N/A 50 mls @ 100 mls/hr IV Q24 JUANY Last Infusion: 08/28/19 14:41 Dose: Infused Documented by: Sodium Chloride () 250 mls @ 15 mls/hr IV .[id number] PRN PRN Reason: Saline Flush Last Infusion: 08/28/19 16:17 Dose: 0 mls/hr Documented by: Ibuprofen (Motrin) 400 mg PO Q4H PRN PRN PRN Reason: Pain Score 1-3/Temp > 100.7 F Last Admin: 08/29/19 02:34 Dose: 400 mg Documented by: Ondansetron HCl (Zofran) 4 mg IV Q6H PRN PRN PRN Reason: NAUSEA/VOMITING Last Admin: 08/28/19 16:11 Dose: 4 mg Documented by: Promethazine HCl (Phenergan) 12.5 mg IV Q6H PRN PRN PRN Reason: NAUSEA/VOMITING Last Admin: 08/29/19 06:31 Dose: 12.5 mg Documented by: Sodium Chloride () 10 - 40 ml IV UD PRN PRN Reason: SALINE FLUSH Last Admin: 08/29/19 06:33 Dose: 10 ml Documented by: STROKE Vital Signs/Narrative: Vital Signs Pulse 08/29/19 04:14 94 Medical Necessity - Tobacco Use Smoking Status: Never smoker Assessment/Plan All Active Problems (Last Updated 08/26/19 @ 14:26 by Linda Hernandes MD) Acute hepatitis (Acute) Pancytopenia (Acute) Infectious mononucleosis (Acute) Patient is a 28-year-old lady who presented with a 5-day history of fever generalized malaise intractable nausea vomiting found to have elevated liver function test on admission as well as pancytopenia was diagnosed with infectious mononucleosis admitted to regular nursing floor where she is currently being managed 1. Infectious mononucleosis ~ Admitted to regular nursing floor for symptomatic management ultrasound of the abdomen demonstrated normal-sized spleen. 2. Acute cystitis ~ Confirmed with urinalysis. Subsequently started on Rocephin 3. Pancytopenia ~ with leukopenia, mild neutropenia and trouble cytopenia secondary to #1 monitoring counts 4. Acute hepatitis ~secondary to infectious mononucleosis; symptomatic management 5. Abnormal HIDA scan ~patient was seen in consultation by Dr. Leija's notes and recommendations reviewed 6. DVT prophylaxis ~ low risk did encourage early ambulation Code Visit Inpatient E&M: 67699 Subs Hosp L2
[2019-08-29 07:32] LABS: Reactive Lymphocyte 2+
[2019-08-29] MEDS: Ondansetron 4 MG/2 ML Vial IV ×2 (10:22→21:20)
--- NOTE | 2019-08-29 11:16 | CASEMGMT ---
Pt stating she does have a living will and health care POA. No documents on file. Pt made aware and requested documents be brought in. Pt expressing understanding. ESTEPHANIA Buckley
[2019-08-29] MEDS: ALPRAZolam 0.5 MG Tablet PO (21:33)
[2019-08-30 02:30] VITALS: BP 120/79; PULSE 96; RESP 16; TEMP 37.2; O2SAT 93
[2019-08-30 06:07] LABS: Hematocrit 29.6 % (37-47); Hemoglobin 9.4 g/dL (12.0-15.0); Mean Corp Hgb Conc 31.8 g/dL (32-36); Mean Corpuscular Hgb 27.9 pg (27.0-32.0); Mean Corpuscular Volume 87.8 fL (81-99); Mean Platelet Vol. 11.1 fl (6.2-12.0); POSITIVE COUNT YES; POSITIVE MORPHOLOGY YES; Platelet Count 129 K/mm3 (150-450); RBC Distribution Width CV 13.8 % (11.6-14.6); Red Blood Count 3.37 M/mm3 (4.2-5.4); White Blood Count 7.8 K/mm3 (4.4-11.0)
[2019-08-30 06:28] LABS: ALB/GLOB Ratio 0.6 RATIO (0.9-2.4); AST(SGOT) 148 U/L (15-37); Alanine Aminotransfer ALT/SGPT 116 U/L (13-56); Albumin, Serum 2.4 g/dL (3.2-5.0); Alkaline Phosphatase 252 U/L (45-117); Anion Gap 8 (5-15); BUN 8 mg/dL (7-18); BUN/Creat Ratio 14.6 RATIO (10-20); Calcium,Total 7.8 mg/dL (8.5-10.1); Chloride 104 mmol/L (98-107); Creatinine, Serum 0.55 mg/dL (0.55-1.02); EST Glomerular Filtration Rate 141 mL/min (>60); Est Glom Filt Rate - Afr Amer 170 mL/min (>60); Estimated Creatinine Clearance 143.83 ml/min; Globulin 3.8 g/dL (2.2-4.2); Glucose 89 mg/dL (74-106); Potassium 3.6 mmol/L (3.5-5.1); Protein, Total 6.2 g/dL (6.4-8.2); Sodium Level 139 mmol/L (136-145)
[2019-08-30 07:10] LABS: Differential Indicated MANUAL DIFF
[2019-08-30 07:30] LABS: Lymphocyte 52 % (19-41); Metamyelocyte 6 % (0-1); Monocyte 6 % (0-10); Myelocyte 2 (0-0); Neutrophil-Band 5 % (0-5); Neutrophil-Segmented 29 % (47-70); Reactive Lymphocyte 2+; Total Cells Counted 100 (MANUAL DIFF)
[2019-08-30 07:31] LABS: Anisocytosis 1+; Hypochromasia 1+; Microcytosis 1+; Platelet Estimate SLT DEC (ADEQ); Polychromasia 1+
[2019-08-30 07:33] LABS: Absolute Lymphocyte Count 4.06 X10^3/uL (0.83-4.51); Absolute Neutrophil Count 2.8 X10^3/uL (2.0-7.7)
--- NOTE | 2019-08-30 08:45 | PCM.DC ---
You will use the following diet at home:: No restrictions Your food should be the consistency of: Regular Discharge Activity: Return to Normal Activity Allergies/Adverse Reactions: Allergies morphine Allergy (Verified 08/26/19 08:00) Hives Medications to take at Discharge Ibuprofen [Motrin] 400 mg PO Q4H PRN PRN tablet 08/30/19 proMETHazine tablet [Phenergan tablet] 25 mg PO Q6H PRN PRN #20 tab 08/30/19 The following prescriptions were given: proMETHazine tablet [Phenergan tablet] 25 mg PO Q6H PRN PRN #20 tab PRN Reason: Nausea/Emesis Transmission Status: Pending to [facility]/pharmacy #[id number] Primary Care Physician: Catherine Adair MD [Primary Care Provider] - Please follow up with your Primary Care Physician in: in 5-7 days for repeat complete metabolic panel Test Results: Test results from this visit will be discussed in further detail at your follow-up appointment, if applicable. Proposed Discharge Date: 08/30/19
--- NOTE | 2019-08-30 08:48 | DS.PCM_ITS ---
Discharge Date and Diagnosis Date of Admission: 08/26/19 Date of Discharge: 08/30/19 - Secondary Discharge Diagnosis Chronic Problems (Last Updated 08/26/19 @ 14:26 by Linda Hernandes MD) Ovarian cyst (Chronic) Abnormal liver function tests (Chronic) Hospital Course and Treatment Imaging Results: Clinical Impression(s) from Imaging Studies Gallbladder Ultrasound 08/26/19 10:16 IMPRESSION: 1. Hepatomegaly. 2. Fatty infiltration of the liver. 3. No evidence of gallstones. Electronically Signed: Carlos Peacock MD at 11:32 EST Tel , Service support , Spleen Ultrasound 08/26/19 16:10 IMPRESSION: Minimal if any splenomegaly Electronically Signed: Drew Cedillo MD at 20:27 EST , Service support , Operations: None Summary of Care Provided: Patient is a 28-year-old lady who presented with a 5-day history of fever generalized malaise intractable nausea vomiting found to have elevated liver function test on admission as well as pancytopenia was diagnosed with infectious mononucleosis admitted to regular nursing floor where she is currently being managed 1. Infectious mononucleosis ~ Admitted to regular nursing floor for symptomatic management ultrasound of the abdomen demonstrated normal-sized spleen. Patient did improve symptomatically however liver function tests were still elevated at the time of discharge did have an extensive discussion with the patient regarding the need to follow-up with PCP to have a repeat complete metabolic panel to be performed within a week. 2. Acute cystitis ~ Confirmed with urinalysis. Subsequently started on Rocephin and cultures came back negative. Rocephin discontinued. 3. Pancytopenia ~ with leukopenia, mild neutropenia and trouble cytopenia secondary to #1 monitoring counts patient WBC count as well as platelet counts have normalized at the time of discharge 4. Acute hepatitis ~secondary to infectious mononucleosis; symptomatic management 5. Abnormal HIDA scan ~patient was seen in consultation by Dr. Leija's notes and recommendations re viewed 6. DVT prophylaxis ~ low risk did encourage early ambulation Objective: GENERAL: cooperative HEENT: flushed EYES; Normal Conjunctiva NECK; supple, normal thyroid, RESPIRATORY: Diminished to auscultation CARDIOVASCULAR: Regular S1 S2, MUSCULOSKELETAL: no muscle waisting NEURO: Awake; no lateralizing signs. SKIN: No Rash - Physical Exam Vitals/I&O's: Vital Signs Temp Pulse Resp BP Pulse Ox 98.9 F 96 16 120/79 93 08/30/19 02:30 08/30/19 02:30 08/30/19 02:30 08/30/19 02:30 08/30/19 02:30 Oxygen Delivery Method Room Air Weight: 80.2 kg Body Mass Index (BMI) 28.5 Intake and Output for Last 24 Hours 08/28/19 08/29/19 08/30/19 23:59 23:59 23:59 Intake Total 2631.5 / 2931.5 1450 / 1725 475 / 475 Output Total 1100 / 1300 1000 / 1000 Balance 1531.5 / 1631.5 450 / 725 475 / 475 Microbiology Past 72 Hours 08/26/19 08:50 Blood Culture (Wb) - Right Forearm Blood Culture - Preliminary No growth in 48 hours. 08/26/19 08:40 Blood Culture (Wb) - Anticubital Left Blood Culture - Preliminary No growth in 48 hours. 08/28/19 10:30 Urine, Clean Catch Urine Culture - Final Mixed Gram Positive Organisms 08/26/19 09:50 Urine, Clean Catch Urine Culture - Final Presumptive C albicans Laboratory Results 08/30/19 05:58: WBC 7.8, RBC 3.37 L, Hgb 9.4 L, Hct 29.6 L, MCV 87.8, MCH 27.9, MCHC 31.8 L, RDW Std Deviation 43.0, RDW Coeff of Mery 13.8, Plt Count 129 L, MPV 11.1, Neut % (Auto) Not Reportable, Absolute Neuts (auto) 2.8, Absolute Lymphs (auto) 4.06, Total Counted 100, Neutrophils % (Manual) 29 L, Band Neutrophils % 5, Lymphocytes % (Manual) 52 H, Monocytes % (Manual) 6, Metamyelocytes % 6 H, Myelocytes % 2 H, Diff Path Review May foll, Reactive Lymphocytes 2+, Platelet Estimate SLT DEC, Polychromasia 1+, Hypochromasia 1+, Anisocytosis 1+, Microcytosis 1+ 08/30/19 05:58: Sodium 139, Potassium 3.6, Chloride 104, Carbon Dioxide 27.0, Anion Gap 8, BUN 8, Creatinine 0.55, Estim Creat Clear Calc 143.83, Est GFR (MDRD) Af Amer 170, Est GFR (MDRD) Non-Af 141, BUN/Creatinine Ratio 14.6, Glucose 89, Calcium 7.8 L, Total Bilirubin 4.10 H, AST 148 H, ALT 116 H, Alkaline Phosphatase 252 H, Total Protein 6.2 L, Albumin 2.4 L, Globulin 3.8, Albumin/Globulin Ratio 0.6 L Current Medications Alprazolam (Xanax) 0.5 mg PO BID PRN PRN PRN Reason: ANXIETY/AGITATION Last Admin: 08/29/19 21:33 Dose: 0.5 mg Documented by: Ceftriaxone Sodium 1 gm/ N/A 50 mls @ 100 mls/hr IV Q24 JUANY Last Infusion: 08/29/19 11:09 Dose: Infused Documented by: Sodium Chloride () 250 mls @ 15 mls/hr IV .[id number] PRN PRN Reason: Saline Flush Last Infusion: 08/28/19 16:17 Dose: 0 mls/hr Documented by: Fluconazole (Diflucan) 400 mg in 200 mls @ 100 mls/hr IV X1 ONE Stop: 08/30/19 10:59 Ibuprofen (Motrin) 400 mg PO Q4H PRN PRN PRN Reason: Pain Score 1-3/Temp > 100.7 F Last Admin: 08/29/19 21:20 Dose: 400 mg Documented by: Ondansetron HCl (Zofran) 4 mg IV Q6H PRN PRN PRN Reason: NAUSEA/VOMITING Last Admin: 08/29/19 21:20 Dose: 4 mg Documented by: Promethazine HCl (Phenergan) 12.5 mg IV Q6H PRN PRN PRN Reason: NAUSEA/VOMITING Last Admin: 08/29/19 06:31 Dose: 12.5 mg Documented by: Sodium Chloride () 10 - 40 ml IV UD PRN PRN Reason: SALINE FLUSH Last Admin: 08/29/19 10:22 Dose: 10 ml Documented by: Discharge Diet: No Restrictions Discharge Activity: Return to Normal Activity Home Medications: Medications to take at Discharge Ibuprofen [Motrin] 400 mg PO Q4H PRN PRN tablet 08/30/19 proMETHazine tablet [Phenergan tablet] 25 mg PO Q6H PRN PRN #20 tab 08/30/19 Following Prescrptions Were Given to Patient: proMETHazine tablet [Phenergan tablet] 25 mg PO Q6H PRN PRN #20 tab PRN Reason: Nausea/Emesis Transmission Status: Pending to [facility]/pharmacy #[id number] Primary Care Physician: Catherine Adair MD [Primary Care Provider] - Please follow up with your Primary Care Physician in: in 5-7 days for repeat complete metabolic panel Disposition: Home Minutes spent on discharge:: 40 Patient Condition:: Stable Medical Necessity - Tobacco Use Smoking Status: Never smoker Meaningful Use Info Meaningful Use Diagnoses (Choose all that apply): None applicable Code Visit Inpatient E&M: 75252 Disch Hosp
--- NOTE | 2019-08-30 08:52 | PCM.WORK.EX ---
Work/School Excuse Work/School Excuse for:: Patient Please excuse this person from:: Work From: 08/26/19 through: 09/06/19 Restrictions: Light Duty
[2019-08-30] MEDS: ALPRAZolam 0.5 MG Tablet PO (09:19)
[2019-08-30] MEDS: 0.9% Saline Lock 10 ML Syringe IV (09:20)
[2019-08-30 09:25] VITALS: PULSE 99; RESP 16; TEMP 37.1; O2SAT 96
[2019-08-30] MEDS: Ibuprofen 400 MG Tablet PO (10:45)
[2019-08-30 11:58] LABS: Pathologist Review Reviewed
--- NOTE | 2019-08-31 11:52 | CASEMGMT ---
MIREYA WALSH Discharge Follow-Up Phone Call. Lace: 11 Strata: 3 Discharge Date: 08/30/19 Adm Dx: Infectious Mononucleosis, leukopenia, neutropenia, elevated LFT Attempted discharge follow-up phone call. No answer. Message left for pt to return call to MS3 Chantel GOMES CM, if she has any questions/concerns about the discharge instructions, follow-up appts, or medications. Phone number provided. Kanu LIN RN, CM
== END 2019-08-30 14:05 | disposition home or self-care (01) | DRG 866 ==
LOC: ED 14:59 → MS3 15:13
PROVIDERS: Surgery; Admitting Provider Hospitalist; Emergency Provider Emergency Medicine; Family Provider Internal Medicine; PCP Internal Medicine; Referring Provider Hospitalist; Visit Provider Internal Medicine
DX: B27.89 Other infectious mononucleosis with other complication (principal); D61.818 Other pancytopenia; N30.00 Acute cystitis without hematuria; B17.9 Acute viral hepatitis, unspecified
CPT/HCPCS: 36415; 76705; 80048; 80053; 80076; 81001; 82248; 82977; 83605; 83690; 83735; 84703; 85025; 85610; 85730; 86308; 87040; 87086; 87088; 87633; 93005; 97802; 99251; 99285; J7030; J7050; A4216; G0463; J2405

== ENCOUNTER 2019-09-01 16:52 | Emergency (ER) | payer OTHER, SELFPAY ==
[2019-08-26 15:26] VITALS: BMI 28.5
[2019-09-01 16:53] VITALS: BP 157/91; PULSE 127; RESP 15; TEMP 37.7; O2SAT 97; BMI 28.5
--- NOTE | 2019-09-01 17:15 | US_ITS ---
STUDY: ABDOMINAL ULTRASOUND - RIGHT UPPER QUADRANT REASON FOR VISIT: Female, 28 years old cholelithiasis history of mono. TECHNIQUE: Ultrasound evaluation of the right upper quadrant was performed with real-time and static may-scale imaging. TECHNICAL QUALITY: Adequate. COMPARISON: CT dated August 24, 2019 FINDINGS: Liver: The liver measures 22.0 cm. There is increased echogenicity consistent with fatty infiltration. There is focal fatty sparing including adjacent to the gallbladder. The bile ducts are within normal limits. There is hepatic color flow. The direction of portal flow is hepatopetal. There is no demonstrated mass lesion. Gallbladder: Normal distended gallbladder. The gallbladder wall measures 2.4 mm. There is a negative sonographic Vo's sign. There is trace pericholecystic fluid. There are no gallstones. Common Bile Duct (C.B.D.): The common bile duct measures 3.4 mm. Pancreas: Normal size of the head, body and tail of the pancreas. There is normal echogenicity of the pancreas. There is no demonstrated pancreatic mass or cyst. Right Kidney: Normal size of the right kidney the right kidney measures 3.5 cm in length. Normal renal cortex. There is no demonstrated renal mass or cyst. There is no right hydronephrosis. US/Liver IMPRESSION: Fatty infiltration of the liver associated with hepatomegaly. Pericholecystic fluid, may be reactive. Electronically Signed: Jeana Frank MD at 18:31 EST Tel , Service support ,
--- NOTE | 2019-09-01 17:16 | ED.VIS.GEN ---
History of Present Illness Chief Complaint: Abn Labs Informant: Patient Onset: Days Context: Gradual Onset Timing: Intermittent Current Severity: Moderate Maximum Severity: Moderate Narrative: The patient presents to the emergency department with fever and malaise. The patient was recently admitted and discharged just 2 days ago. She was found to have elevated liver functions and diagnosed with mononucleosis. Prior to discharge, her liver functions were still trending up. Her fever was controlled though. There was initially suspicion of cholecystitis, but her ultrasound noted to be negative. She followed up with primary care today. She was found to have increasing elevation of the bilirubin and alkaline phosphatase. She also had return of her fever. She states she is been having fever intermittently for the past 12 days. She has not been nauseated. She denies any weight loss. She denies any significant abdominal pain. Prior similar symptoms: Yes Recent Illness/Hospitalization: Yes Past Medical History - Allergies and Home Meds Allergies/Adverse Reactions: Allergies morphine Allergy (Verified 09/01/19 16:55) Hives Primary Care Physician: Catherine Adair MD [Primary Care Provider] - Prior records reviewed: Yes Past Medical History: None Surgical History: appendectomy, colectomy, tonsillectomy Smoking Status: Never smoker - Family History Maternal Family History: Family History (Last Updated 08/15/19 @ 13:00 by Stacey Agustin) Grandmother Diabetes Father Hypertension Family History: Reports: No pertinent history Paternal Family History: Family History (Last Updated 08/15/19 @ 13:00 by Stacey Agustin) Grandmother Diabetes Father Hypertension Family History: Reports: No pertinent history Review of Systems General: Reports: Fever. Denies: Chills, Sweats Eyes: Denies: Visual changes - bilaterally, Diplopia ENT: Denies: Rhinorrhea, Sore throat Cardiovascular: Denies: Chest pain, Palpitations Respiratory: Denies: Dyspnea, Cough, Dyspnea on exertion Gastrointestinal: Reports: Nausea. Denies: Abdominal pain, Vomiting, Diarrhea, Melena, Hematochezia Genitourinary: Denies: Dysuria, Hematuria, Frequency Musculoskeletal: Denies: Back pain, Extremity Pain Skin: Denies: Rash, Wounds Neurological: Denies: Headache, Weakness, Numbness Physical Exam Vital Signs/Narrative: Vital Signs Temp Pulse Resp BP Pulse Ox 09/01/19 16:53 99.8 F H 127 H 15 157/91 H 97 Inital Vital Signs reviewed: Yes General: Well nourished, Well developed, No Acute Distress Head: Normocephalic, Atraumatic Eyes: Perrl, EOMI ENT: Moist mucous membranes, No rhinorrhea Neck: Supple, Nontender Cardiovascular: Regular rate, Regular rhythm, No murmurs Respiratory: No distress, CTA bilaterally, Chest nontender Abdomen: Soft, Nontender, Nondistended, Normal bowel sounds Back: Nontender, Normal Inspection Extremities: Nontender, No edema Skin: Normal color, No rash Neurological: Alert, Oriented x3, Cranial nerves II-XII grossly intact, Normal Strength, Normal Sensation Psychological: Normal affect, Normal Mood Diagnostic/Tx/Re-eval Clinical Impression(s) from Imaging Studies Liver Ultrasound 09/01/19 17:15 IMPRESSION: Fatty infiltration of the liver associated with hepatomegaly. Pericholecystic fluid, may be reactive. Electronically Signed: Jeana Frank MD at 18:31 EST Tel , Service support , Abnormal Lab Results 09/01/19 09/01/19 09/01/19 17:23 17:23 17:23 WBC 7.3 RBC 3.41 L Hgb 9.4 L Hct 29.5 L MCV 86.5 MCH 27.6 MCHC 31.9 L RDW Std Deviation 44.8 H RDW Coeff of Mery 14.5 Plt Count 201 MPV 10.5 Neut % (Auto) Not Reportable Absolute Neuts (auto) 2.3 Absolute Lymphs (auto) 4.38 Total Counted 100 Neutrophils % (Manual) 30 L Band Neutrophils % 2 Lymphocytes % (Manual) 60 H Monocytes % (Manual) 7 Eosinophils % (Manual) 1 Diff Path Review May foll Reactive Lymphocytes RARE Platelet Estimate ADEQUATE Polychromasia 1+ Anisocytosis 1+ Sodium 136 Potassium 3.7 Chloride 102 Carbon Dioxide 26.0 Anion Gap 8 BUN 7 Creatinine 0.59 Estim Creat Clear Calc 134.08 Est GFR (MDRD) Af Amer 156 Est GFR (MDRD) Non-Af 129 BUN/Creatinine Ratio 11.8 Glucose 100 Lactic Acid 1.1 Calcium 7.8 L Total Bilirubin 4.40 H Direct Bilirubin 3.83 H AST 150 H ALT 120 H Alkaline Phosphatase 332 H Total Protein 6.6 Albumin 2.6 L Globulin 4.0 Lipase 297 Urine Color Urine Clarity Urine pH Ur Specific Heidrick Urine Protein Urine Glucose (UA) Urine Ketones Urine Occult Blood Urine Nitrite Urine Bilirubin Urine Urobilinogen Ur Leukocyte Esterase Urine RBC Urine WBC Ur Squamous Epith Cells Ur Transition Epith Cell Ur Renal Epithelial Cell Urine Bacteria Urine Mucus 09/01/19 17:35 WBC RBC Hgb Hct MCV MCH MCHC RDW Std Deviation RDW Coeff of Mery Plt Count MPV Neut % (Auto) Absolute Neuts (auto) Absolute Lymphs (auto) Total Counted Neutrophils % (Manual) Band Neutrophils % Lymphocytes % (Manual) Monocytes % (Manual) Eosinophils % (Manual) Diff Path Review Reactive Lymphocytes Platelet Estimate Polychromasia Anisocytosis Sodium Potassium Chloride Carbon Dioxide Anion Gap BUN Creatinine Estim Creat Clear Calc Est GFR (MDRD) Af Amer Est GFR (MDRD) Non-Af BUN/Creatinine Ratio Glucose Lactic Acid Calcium Total Bilirubin Direct Bilirubin AST ALT Alkaline Phosphatase Total Protein Albumin Globulin Lipase Urine Color Yellow Urine Clarity Cloudy Urine pH 8.0 Ur Specific Heidrick 1.010 Urine Protein 100 H Urine Glucose (UA) Normal Urine Ketones 5 H Urine Occult Blood 250 H Urine Nitrite Negative Urine Bilirubin 6 H Urine Urobilinogen 12 H Ur Leukocyte Esterase 25 H Urine RBC 50-100 SEEN Urine WBC 0-5 SEEN Ur Squamous Epith Cells 0-5 SEEN Ur Transition Epith Cell 0-5 SEEN Ur Renal Epithelial Cell 0-5 SEEN Urine Bacteria 2+ Urine Mucus 2+ - Medical Decision Making The patient presents to the emergency department from her primary care office. The patient was recently admitted with infectious mononucleosis. She did have elevated liver functions at that time. She states that she had a fever today, but no other progression of her symptoms. She looks well. She was given fluids. Labs were obtained. It looks as if her AST and ALT have peaked as they have stabilized. Her bilirubin is only minimally increased. She does have some mild elevation of her alkaline phosphatase, but again all these numbers only peak anywhere from 5 to 15 days after the illness. I did obtain an upper quadrant ultrasound which shows no evidence of acute cholecystitis. I did discuss this with surgery as the patient was followed closely by surgery. Again, there is no indication for acute surgical intervention. I do feel that this is just the normal illness progression and then improvement. Patient is comfortable with this plan of care. I do feel that she is safe for outpatient therapy. She will be discharged home. Impression 1. Infectious mononucleosis with hepatitis ED Disposition - Plan for ED Patient: Instructions: Mononucleosis Referrals: Catherine Adair MD [Primary Care Provider] -
[2019-09-01 17:37] LABS: Hematocrit 29.5 % (37-47); Hemoglobin 9.4 g/dL (12.0-15.0); Mean Corp Hgb Conc 31.9 g/dL (32-36); Mean Corpuscular Hgb 27.6 pg (27.0-32.0); Mean Corpuscular Volume 86.5 fL (81-99); Mean Platelet Vol. 10.5 fl (6.2-12.0); POSITIVE COUNT YES; POSITIVE MORPHOLOGY YES; Platelet Count 201 K/mm3 (150-450); RBC Distribution Width CV 14.5 % (11.6-14.6); RBC Distribution Width SD 44.8 fl (35.1-43.9); Red Blood Count 3.41 M/mm3 (4.2-5.4); White Blood Count 7.3 K/mm3 (4.4-11.0)
[2019-09-01 17:40] LABS: Differential Indicated MANUAL DIFF
[2019-09-01] MEDS: 0.9% Normal Saline 1,000 ML 1000 ML IV (17:40)
[2019-09-01 17:50] LABS: AST(SGOT) 150 U/L (15-37); Alanine Aminotransfer ALT/SGPT 120 U/L (13-56); Albumin, Serum 2.6 g/dL (3.2-5.0); Alkaline Phosphatase 332 U/L (45-117); Anion Gap 8 (5-15); BUN 7 mg/dL (7-18); BUN/Creat Ratio 11.8 RATIO (10-20); Bilirubin, Direct 3.83 mg/dL (0.00-0.30); Calcium,Total 7.8 mg/dL (8.5-10.1); Chloride 102 mmol/L (98-107); Creatinine, Serum 0.59 mg/dL (0.55-1.02); EST Glomerular Filtration Rate 129 mL/min (>60); Est Glom Filt Rate - Afr Amer 156 mL/min (>60); Estimated Creatinine Clearance 134.08 ml/min; Glucose 100 mg/dL (74-106); Lipase 297 U/L (73-393); Potassium 3.7 mmol/L (3.5-5.1); Protein, Total 6.6 g/dL (6.4-8.2); Sodium Level 136 mmol/L (136-145)
[2019-09-01 17:51] LABS: Color, Urine Yellow (Yellow); Glucose, Dipstick Normal (Normal); Ketone-Dipstick 5 mg/dl (Negative); Leukocyte Esterase-Dipstick 25 /ul (Negative); Nitrite-Dipstick Negative (Negative); Occult Blood-Urine 250 /ul (Negative); Protein-Dipstick 100 mg/dl (Negative); Urine Clarity Cloudy (Clear); Urine Urobilinogen 12 mg/dl (Normal)
[2019-09-01 17:57] LABS: Lactic Acid 1.1 mmol/L (0.4-2.0)
[2019-09-01 18:03] VITALS: RESP 18
[2019-09-01 18:09] LABS: Eosinophil 1 % (0-5); Lymphocyte 60 % (19-41); Monocyte 7 % (0-10); Neutrophil-Band 2 % (0-5); Neutrophil-Segmented 30 % (47-70); Total Cells Counted 100 (MANUAL DIFF)
[2019-09-01 18:09] LABS: Urine Bilirubin Dipstick 6 mg/dL (Negative)
[2019-09-01 18:10] LABS: Anisocytosis 1+; Polychromasia 1+
[2019-09-01 18:11] LABS: Platelet Estimate ADEQUATE (ADEQ)
[2019-09-01 18:11] LABS: Red Blood Cells-Urine 50-100 SEEN /hpf (0-5); White Blood Cells 0-5 SEEN /hpf (0-5)
[2019-09-01 18:12] LABS: Bacteria 2+ /hpf (None Seen); Mucous, Urine 2+ /hpf (<or=2+); Renal Epithelial Cells 0-5 SEEN /hpf (0-5); Squamous Epithelial Cells - UA 0-5 SEEN /hpf (5-10); Transitional Epithelial - Ur 0-5 SEEN /hpf (0-5)
[2019-09-01 18:12] LABS: Reactive Lymphocyte RARE
[2019-09-01 18:13] LABS: Absolute Lymphocyte Count 4.38 X10^3/uL (0.83-4.51); Absolute Neutrophil Count 2.3 X10^3/uL (2.0-7.7)
[2019-09-01 18:59] VITALS: BP 138/89; PULSE 74; RESP 16; O2SAT 96
[2019-09-04 14:09] LABS: Pathologist Review Reviewed
== END 2019-09-01 19:01 | disposition home or self-care (01) ==
LOC: ED 17:17
PROVIDERS: Emergency Provider Emergency Medicine; Family Provider Internal Medicine; PCP Internal Medicine
DX: B27.90 Infectious mononucleosis, unspecified without complication (principal); K75.9 Inflammatory liver disease, unspecified; Z88.5 Allergy status to narcotic agent; Z90.49 Acquired absence of other specified parts of digestive tract
CPT/HCPCS: 76705; 80048; 80076; 81001; 83605; 83690; 85025; 99283; A4216

== ENCOUNTER → 2019-11-24 10:07 | Outpatient (CLI) | payer OTHER, SELFPAY ==
[2019-11-24 13:02] LABS: Ferritin 28 ng/mL (8-252); GGTP 58 U/L (5-55)
[2019-11-27 14:07] LABS: ANTINUCLEAR ANTIBODIES DIRECT Negative (Negative)
[2019-11-27 14:47] LABS: Alpha Antitrypsin Serum 116 mg/dL (100-188)
[2019-11-28 11:24] LABS: Anti-Smooth Muscle ABS 4 Units (0-19); EBV Acute VCA IgM < 36.0 U/mL (0.0-35.9); EBV Early Antigen IgG 62.5 U/mL (0.0-8.9); EBV Nuclear Antigen IgG < 18.0 U/mL (0.0-17.9); H. PYLORI STOOL AG Negative (Negative)
== END ==
PROVIDERS: PCP Family Medicine; Referring Provider Family Medicine; Visit Provider Family Medicine
DX: K75.9 Inflammatory liver disease, unspecified (principal); K21.9 Gastro-esophageal reflux disease without esophagitis
CPT/HCPCS: 36415; 82103; 82728; 82977; 83516; 86038; 86663; 86664; 86665

== ENCOUNTER 2019-12-12 06:54 | Day surgery (SDC) | payer OTHER, SELFPAY ==
--- NOTE | 2019-11-27 03:54 | HP_ITS ---
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 Is patient in pain?: Yes (RUQ and epigastric) Allergies morphine Allergy (Verified 11/27/19 13:57) Hives Medications Ibuprofen [Motrin] 400 mg PO Q4H PRN PRN tab 08/30/19 [Rx Confirmed 09/01/19] esomeprazole magnesium 20 mg capsule,delayed release 20 mg PO DAILY 11/27/19 [History Confirmed 11/27/19] PFSH Surgical History S/P tonsillectomy (Acute) S/P ACL surgery (Acute) S/P appendectomy (Acute) Family History Grandmother Diabetes Father Hypertension Social History (Updated 11/27/19 @ 15:54 by Kj Leija MD) Smoking Status: Never smoker HPI HPI HPI: WILLIAM HARRY, is a 28 F who presents to the office today for HPI HPI Surgical H&P: Yes HPI: WILLIAM HARRY, is a 28 F who presents to the office today for surgical consultation regarding epigastric right upper quadrant pain and suspected possible peptic ulcer disease. I saw her back in August. She was having diarrhea bloating low abdominal pain abnormal liver function tests. A ultrasound suggests some fluid around the gallbladder but no stones. HIDA scan was diminished. However it was determined at that time that she had mononucleosis. She had mild splenomegaly. She was seen by gastroenterology up at [facility] and then she has been followed locally regarding her LFTs. More recently she has developed different symptoms. She is now concerned about some epigastric discomfort and some right upper quadrant discomfort. Some reflux symptoms. She denies bright red blood per rectum or melena. She remotely had a previous perforated appendicitis requiring a hemicolectomy. She is been expressly referred currently by Dr. Jadon Lyn for consideration of an upper endoscopy to facilitate her new onset and variation of symptoms. ROS General General: Yes weight change; no appetite, fatigue, colon cancer, breast cancer or weakness HEENT HEENT: No difficulty swallowing, eye injury, eye surgery, swollen glands or hoarseness Endo Endocrine: No thyroid disease, diabetes mellitus, thyroid cancer, Hair loss, heat intolerance or cold intolerance Skin Skin: No rash or changing moles Breast Breast: No left breast lump, right breast lump, nipple discharge, breast pain, abnormal mammogram, abnormal US or breast enlargement Musc Musculoskeletal: No back problems, arthritis, rheumatoid arthritis, gout or joint pain Cardio Cardiovascular: No murmur, pacemaker, heart disease, atrial fibrillation, high blood pressure, heart attack, heart stent, palpitations, shortness of breat with exertion or chest pain Psych Psychiatric: Yes anxiety; no depression or hearing voices Resp Respiratory: No shortness of breath, No sleep apnea, No cough, No COPD, No asthma, No emphysema, No wheezing Gastro Gastrointestinal: No abdominal pain, No nausea or vomiting, Yes diarrhea, No constipation, No blood in stool, Yes acid reflux, No hemorrhoids, No ulcers, No gallbladder problem, No black,tarry stools Prakash Hematologic: No blood thinners, No blood disorders, No bleeding, No anemia, No blood clots Neuro Neurologic: No weakness Exam Const General: cooperative, healthy appearing, comfortable, no acute distress Nutritional Appearance: overweight Orientation: alert, awake Chest Chest palpation & inspection: normal inspection of the chest Breast Palpation: No nipple discharge Resp Effort & Inspection: normal respiratory effort Auscultation: clear to auscultation bilaterally Cardio Rate: regular rate Rhythm: regular rhythm Heart Sounds: no murmurs GI Palpation: soft, no hepatosplenomegaly Auscultation: normal bowel sounds Extrem General: no calf tenderness bilaterally Psych Affect: normal affect Assessment & Plan Problems 1. Epigastric pain R10.13 2. Infectious mononucleosis without complication, infectious mononucleosis due to unspecified organism B27.90 3. Abnormal liver function tests R94.5 Plan The patient states that she feels that her energy level and feeling of wellness has improved as she has been slowly resolving from her mononucleosis. This new onset of epigastric right upper quadrant pain is different and undetermined. A request for an upper endoscopy is noted. Please note that the patient has previously and her history had a perforated appendicitis requiring a right hemicolectomy. Surgical intervention on her gallbladder would potentially be more complicated. I concur with Dr. Lyn had a esophagogastroduodenoscopy with very careful inspection of the duodenum stomach and esophagus with biopsies as pertinent would be appropriate. I have discussed with her technique, benefit, risk, alternatives. She has had an opportunity to ask and have questions answered. We will schedule procedure at her discretion. I appreciate the ongoing opportunity of assisting with her surgical care. Cc: Dr. Jadon Leija M.D., F.A.C.S. Coding Level of Care Code Off vis,est,level 3 Diagnoses Epigastric pain R10.13 Infectious mononucleosis without complication, infectious mononucleosis due to unspecified organism B27.90 ??Infectious mononucleosis etiology: unspecified organism ??Infectious mononucleosis complication: without complication Abnormal liver function tests R94.5 11/27/19 1554 <Electronically signed by Kj swenson MD> Date _ Kj Leija MD I have re-examined the patient. There are no clinical changes since date of exam.
[2019-11-27 13:59] VITALS: BMI 28.5
[2019-12-12] VITALS (7 sets, daily range): BP systolic 101–109; BP diastolic 59–71; PULSE 78–99; RESP 15–16; TEMP 36.2–36.6; O2SAT 96–99; BMI 28.5
[2019-12-12] MEDS: Lactated Ringers 1,000 ML 100 ML IV (07:25)
--- NOTE | 2019-12-12 08:00 | IMM_PTH ---
PATIENT: WILLIAM HARRY LOC: EN U#:[id number] AGE/SX: 28/F ROOM: RE12/12/[address]: Dr. Kj Leija MD : 1990 BED: DIS: 12/12/2019 SPEC #: [id number] RECD: 12/12/19 13:52 STATUS: RAZ REJennifer #: [id number] ELYSE: 12/12/19 08:[address]: Kj Leija DEPT: IMMUNOHISTOCHEMISTRY RECD BY: Idalia Rouse ENTERED: 12/12/19 13:52 SP TYPE: IMMUNO OTHR DR: Dr. Jadon Lyn MD Tissues: B - Stomach, NOS Procedures: H Pylori (initial) PHYSICIAN & INSTITUTION [place] [address] SPECIMEN INFORMATION: Tissue Source: B - Antrum biopsy Clinical Info: Epigastric pain Specimen Number: [id number] CPT code: 51043 METHODOLOGY: Deparaffinized sections of prefer/formalin-fixed tissue or PAP/DQ stained slides are incubated with monoclonal/polyclonal antibodies/oligonucleotide probes. Localization is made via biotin free immunoperoxidase method. Appropriate controls are performed and reacted as expected. Results on target cell population are indicated in the following table: RESULTS: ANTIBODY / CLONE RESULT Block B H Pylori (polyclonal) negative These tests were developed and their performance characteristics determined by [facility]. They may not have been cleared or approved by the U.S. Food and Drug Administration. The FDA has determined that such clearance or approval is not necessary. INTERPRETATION: B. Antrum biopsy: Negative for Helicobacter pylori organisms. SJ:yusuf 12/13/19
--- NOTE | 2019-12-12 08:00 | EGD_PTH ---
PATIENT: WILLIAM HARRY LOC: EN U#:[id number] AGE/SX: 28/F ROOM: RE12/12/[address]: Dr. Kj Leija MD : 1990 BED: DIS: 12/12/2019 SPEC #: [id number] RECD: 12/12/19 10:47 STATUS: RAZ MICHAEL #: [id number] ELYSE: 12/12/19 08:[address]: Kj Leija DEPT: SURGICAL PATHOLOGY RECD BY: Carlo Rogers ENTERED: 12/12/19 13:36 SP TYPE: EGD BIOPSY KATALINA DR: Dr. Jadon Lyn MD Tissues: A - Duodenum, NOS B - Gastric mucous membrane C - Stomach, NOS D - Esophageal mucous membrane E - Esophageal mucous membrane Procedures: Surgery Specimen Level IV HEADER OPERATION: EGD ([facility] [place] PRE-OP DIAGNOSIS: Epigastric pain TISSUE SUBMITTED: A - Duodenal biopsy, B - Antrum biopsy for histo and H. pylori, C - Greater curvature biopsy, D - Distal esophagus biopsy, E - Mid esophagus biopsy MICROSCOPIC DIAGNOSIS A. Duodenal biopsy: Fragments of duodenal mucosa, no pathologic diagnosis. B. Antrum biopsy: Mild gastritis. See microscopic description and comment. C. Greater curvature, biopsy: Mild gastritis. See microscopic description. D. Distal esophagus, biopsy: Fragments of squamous epithelium with congestion and changes consistent with gastroesophageal reflux disease. E. Mid esophageal biopsy: Fragments of squamous epithelium, no pathologic diagnosis. SJ:yusuf 12/13/19 COMMENT B. The results of immunohistochemistry for Helicobacter pylori will be reported separately ([id number]). MICROSCOPIC DESCRIPTION Slides are reviewed. B & C. The specimens show fragments of gastric mucosa with chronic inflammatory cell infiltrates in the lamina propria consisting of lymphocytes and plasma cells, consistent with mild chronic gastritis. GROSS DESCRIPTION A - Received in fixative is one container labeled with the patient's name and designated duodenal biopsy. The specimen consists of multiple irregular fragments of light sam soft tissue that in aggregate measure 1 x 0.5 x 0.1 cm. The specimen is totally submitted in one cassette. B - Received in fixative is one container labeled with the patient's name and designated antral biopsy. The specimen consists of one irregular fragment of light sam soft tissue that measures 0.5 x 0.3 x 0.1 cm. The specimen is totally submitted in one cassette. C -Received in fixative is one container labeled with the patient's name and designated greater curvature biopsy. The specimen consists of one irregular fragment of light sam soft tissue that measures 0.4 x 0.3 x 0.1 cm. The specimen is totally submitted in one cassette. D - Received in fixative is one container labeled with the patient's name and designated distal esophageal biopsy. The specimen consists of multiple irregular fragments of light sam soft tissue that in aggregate measure 0.5 x 0.4 x 0.1 cm. The specimen is totally submitted in one cassette. E - Received in fixative is one container labeled with the patient's name and designated mid esophageal biopsy. The specimen consists of multiple irregular fragments of light sam soft tissue that in aggregate measure 0.3 x 0.3 x 0.1 cm. The specimen is totally submitted in one cassette. / SJ:yusuf 12/12/19 TC: 3 CPT: 47447 x5
[2019-12-12 08:13] LABS: Internal QC Validated? YES +Cl - CLEAR BKGD; Pregnancy, Urine Negative Negative
--- NOTE | 2019-12-12 08:29 | OP.EGD_ITS ---
Patient Name: Prosper Rea Procedure Date: 12/12/2019 8:05 AM Date of : 1990 Age: 28 Procedure: Upper GI endoscopy Indications: Epigastric abdominal pain Providers: Kj Leija MD Referring MD: Jadon Lyn Medicines: See the Anesthesia note for documentation of the administered medications Complications: No immediate complications. Procedure: Pre-Anesthesia Assessment: - Prior to the procedure, a History and Physical was performed, and patient medications and allergies were reviewed. The patient's tolerance of previous anesthesia was also reviewed. The risks and benefits of the procedure and the sedation options and risks were discussed with the patient. All questions were answered, and informed consent was obtained. Prior Anticoagulants: The patient has taken no previous anticoagulant or antiplatelet agents. ASA Grade Assessment: II - A patient with mild systemic disease. After reviewing the risks and benefits, the patient was deemed in satisfactory condition to undergo the procedure. After obtaining informed consent, the endoscope was passed under direct vision. Throughout the procedure, the patient's blood pressure, pulse, and oxygen saturations were monitored continuously. The gastroscope was introduced through the mouth, and advanced to the second part of duodenum. The upper GI endoscopy was accomplished without difficulty. The patient tolerated the procedure well. Scope In: 8:14:32 AM Scope Out: 8:21:58 AM Total Procedure Duration Time 0 hours 7 minutes 26 seconds Findings: The Z-line was variable and was found 36 cm from the incisors. Biopsies were taken with a cold forceps for histology. The mid esophagus was normal. Biopsies were taken with a cold forceps for histology. A 1 cm hiatal hernia was present. Diffuse mildly erythematous mucosa without bleeding was found in the gastric antrum. Biopsies were taken with a cold forceps for histology. Localized mildly friable mucosa with contact bleeding was found on the greater curvature of the stomach. Biopsies were taken with a cold forceps for histology. The examined duodenum was normal. Biopsies were taken with a cold forceps for histology. Impression: - Z-line variable, 36 cm from the incisors. Biopsied. - Normal mid esophagus. Biopsied. - 1 cm hiatal hernia. - Erythematous mucosa in the antrum. Very minimal. Biopsied. - Friable gastric mucosa greater curvature. Undetermined etiology.. Biopsied. - Normal examined duodenum. Biopsied. Recommendation: - Await pathology results. - Discharge patient to home. - Resume previous diet. - Continue present medications. - Telephone my office for pathology results in 1 week. Procedure Code(s): --- Professional --- 41977, Esophagogastroduodenoscopy, flexible, transoral; with biopsy, single or multiple Diagnosis Code(s): --- Professional --- K22.8, Other specified diseases of esophagus K44.9, Diaphragmatic hernia without obstruction or gangrene K31.89, Other diseases of stomach and duodenum R10.13, Epigastric pain CPT copyright 2017 [employer]. All rights reserved. The codes documented in this report are preliminary and upon taxi truck driver review may be revised to meet current compliance requirements. Kj Leija MD 12/12/2019 8:29:39 AM This report has been signed electronically. Number of Addenda: 0 Note Initiated On: 12/12/2019 8:05 AM
--- NOTE | 2019-12-12 08:30 | OP.CCLET_ITS ---
12/12/2019 Jadon Lyn [address] [place] [address] Re : Upper GI endoscopy procedure for Prosper Beck Dear Dr. Lyn This procedure was performed on Thursday, December 12, 2019. My impressions and recommendations are as follows: Impressions : - Z-line variable, 36 cm from the incisors. Biopsied. - Normal mid esophagus. Biopsied. - 1 cm hiatal hernia. - Erythematous mucosa in the antrum. Very minimal. Biopsied. - Friable gastric mucosa greater curvature. Undetermined etiology.. Biopsied. - Normal examined duodenum. Biopsied. Recommendations : - Await pathology results. - Discharge patient to home. - Resume previous diet. - Continue present medications. - Telephone my office for pathology results in 1 week. My findings are described in the full procedure note, which is enclosed. If I can be of further assistance, please feel free to contact me at Doctor phone number(s): Work: . Sincerely, Kj Leija MD 12/12/2019 8:29:39 AM This report has been signed electronically.
== END 2019-12-12 09:16 | disposition home or self-care (01) ==
LOC: EN 06:54 → AC 06:56
PROVIDERS: Anesthesiology; PCP Family Medicine; Referring Provider Family Medicine; Visit Provider Surgery
PROC: 0DJ08ZZ Inspection of Upper Intestinal Tract, Via Natural or Artificial Opening Endoscopic (ICD-10-PCS; CPT 43235; principal; 2019-12-12 07:55)
DX: K29.70 Gastritis, unspecified, without bleeding (principal); K21.9 Gastro-esophageal reflux disease without esophagitis; K44.9 Diaphragmatic hernia without obstruction or gangrene; K22.8 Other specified diseases of esophagus; K31.89 Other diseases of stomach and duodenum; R94.5 Abnormal results of liver function studies; B27.90 Infectious mononucleosis, unspecified without complication; E66.3 Overweight; Z68.28 Body mass index [BMI] 28.0-28.9, adult; Z88.5 Allergy status to narcotic agent; Z79.1 Long term (current) use of non-steroidal anti-inflammatories (NSAID); Z90.49 Acquired absence of other specified parts of digestive tract
CPT/HCPCS: 43239; 81025; 88305; 88342; J7120; J2405

== ENCOUNTER → 2020-02-03 09:20 | Outpatient (CLI) | payer OTHER, SELFPAY ==
[2019-12-12 07:15] VITALS: BMI 28.5
[2020-02-03 10:12] LABS: ALB/GLOB Ratio 1.3 RATIO (0.9-2.4); AST(SGOT) 32 U/L (15-37); Alanine Aminotransfer ALT/SGPT 74 U/L (13-56); Alkaline Phosphatase 59 U/L (45-117); Anion Gap 6 (5-15); BUN 11 mg/dL (7-18); BUN/Creat Ratio 15.9 RATIO (10-20); Chloride 109 mmol/L (98-107); Creatinine, Serum 0.69 mg/dL (0.55-1.02); EST Glomerular Filtration Rate 107 mL/min (>60); Est Glom Filt Rate - Afr Amer 130 mL/min (>60); Globulin 3.1 g/dL (2.2-4.2); Glucose 98 mg/dL (74-106); Potassium 3.8 mmol/L (3.5-5.1); Prolactin 4.7 ng/mL; Protein, Total 7.1 g/dL (6.4-8.2); Sodium Level 141 mmol/L (136-145)
[2020-02-06 05:58] LABS: Adrenocorticotropic Hormone 13.7 pg/mL (7.2-63.3)
== END ==
PROVIDERS: PCP Family Medicine; Referring Provider Family Medicine; Visit Provider Family Medicine
DX: N91.1 Secondary amenorrhea (principal); K21.9 Gastro-esophageal reflux disease without esophagitis
CPT/HCPCS: 36415; 80053; 82024; 84146; 84443

== ENCOUNTER → 2020-04-17 12:11 | Outpatient (CLI) | payer OTHER, SELFPAY ==
[2019-12-12 07:15] VITALS: BMI 28.5
[2020-04-17 15:52] LABS: Absolute Lymphocyte Count 2.27 X10^3/uL (0.83-4.51); Absolute Neutrophil Count 3.1 X10^3/uL (2.0-7.7); Basophil# 0.03 X10^3/uL; Basophil% 0.5 % (0-1); Eosinophil# 0.09 X10^3/uL; Eosinophils% 1.5 % (0-5); Hematocrit 40.9 % (37-47); Hemoglobin 12.6 g/dL (12.0-15.0); Lymphocyte # 2.27 X10^3/ul (4.0); Lymphocyte % 37.5 % (19-41); Mean Corp Hgb Conc 30.8 g/dL (32-36); Mean Corpuscular Volume 87.6 fL (81-99); Monocyte# 0.52 X10^3/uL; Monocyte% 8.6 % (0-10); NRBC Flagged by Analyzer 0 % (0-5); Neutrophil # 3.14 X10^3/uL (2.7-7.7); Neutrophil % 51.7 % (47-70); Platelet Count 290 K/mm3 (150-450); RBC Distribution Width CV 12.7 % (11.6-14.6); RBC Distribution Width SD 40.7 fl (35.1-43.9); Red Blood Count 4.67 M/mm3 (4.2-5.4); White Blood Count 6.1 K/mm3 (4.4-11.0)
[2020-04-17 15:56] LABS: ALB/GLOB Ratio 1.3 RATIO (0.9-2.4); AST(SGOT) 21 U/L (15-37); Alanine Aminotransfer ALT/SGPT 51 U/L (13-56); Albumin, Serum 4.2 g/dL (3.2-5.0); Alkaline Phosphatase 67 U/L (45-117); Anion Gap 8 (5-15); BUN 11 mg/dL (7-18); BUN/Creat Ratio 17.3 RATIO (10-20); CRP < 2.90 mg/L (0.0-3.0); Calcium,Total 8.8 mg/dL (8.5-10.1); Chloride 104 mmol/L (98-107); Creatinine, Serum 0.64 mg/dL (0.55-1.02); EST Glomerular Filtration Rate 118 mL/min (>60); Est Glom Filt Rate - Afr Amer 143 mL/min (>60); Globulin 3.2 g/dL (2.2-4.2); Glucose 85 mg/dL (74-106); Potassium 3.8 mmol/L (3.5-5.1); Protein, Total 7.4 g/dL (6.4-8.2); Sodium Level 137 mmol/L (136-145)
[2020-04-17 16:16] LABS: Erythrocyte Sedimentation Rate 4 mm/hr (0-20)
== END ==
PROVIDERS: PCP Family Medicine; Visit Provider Family Medicine
DX: K80.50 Calculus of bile duct without cholangitis or cholecystitis without obstruction (principal)
CPT/HCPCS: 36415; 80053; 85025; 85652; 86140

== ENCOUNTER 2020-05-01 05:28 | Day surgery (SDC) | payer OTHER, SELFPAY ==
[2020-04-19 06:07] VITALS: BMI 27.5
[2020-05-01] VITALS (10 sets, daily range): BP systolic 120–137; BP diastolic 66–87; PULSE 65–93; RESP 15–18; TEMP 36.2–37.2; O2SAT 94–100; BMI 27.5
--- NOTE | 2020-05-01 | GALL_PTH ---
PATIENT: WILLIAM HARRY LOC: [facility] [place] U#:[id number] AGE/SX: 29/F ROOM: RE05/01/[address]: Dr. Kj Leija MD : 1990 BED: DIS: 05/01/2020 SPEC #: [id number] RECD: 05/01/20 10:17 STATUS: RAZ MICHAEL #: [id number] ELYSE: 05/01/20 00:[address]: Kj Leija DEPT: SURGICAL PATHOLOGY RECD BY: Adithya Isaac ENTERED: 05/01/20 10:17 SP TYPE: ANIRUDH DARDEN DR: Dr. Jadon Lyn MD Tissues: Gallbladder, NOS Procedures: Surgery Specimen Level III HEADER OPERATION: Laparoscopic cholecystectomy with IOC PRE-OP DIAGNOSIS: Biliary dyskinesia TISSUE SUBMITTED: Gallbladder MICROSCOPIC DIAGNOSIS Gallbladder, cholecystectomy: Cholesterolosis and chronic cholecystitis. AM:yusuf 05/02/20 MICROSCOPIC DESCRIPTION Slides are reviewed. GROSS DESCRIPTION Received is one container labeled with the patient's name and designated gallbladder. The specimen consists of a gallbladder measuring 6 cm in length and up to 2 cm in diameter. The external surface is pink-sam, smooth and glistening for the most part. Focally it is granular, hemorrhagic and contains cautery artifact. The gallbladder contains a small amount of hemorrhagic bile. No stones are identified in the container or in the gallbladder. The mucosa also shows several yellowish streaks consistent with cholesterolosis. The mucosa is bile-stained and without any mass lesions. The gallbladder wall measures up to 0.2 cm in thickness. [employer] Advanced Operator Maintainer sections from the gallbladder and the cystic duct are submitted in one cassette. / SJ:rg 05/01/20 TC:3 [facility]: [id number]
--- NOTE | 2020-05-01 05:36 | EKG12_ITS ---
Test Reason : PRE-OP Blood Pressure : / mmHG Vent. Rate : 072 BPM Atrial Rate : 072 BPM P-R Int : 170 ms QRS Dur : 084 ms QT Int : 412 ms P-R-T Axes : 036 051 038 degrees QTc Int : 451 ms Normal sinus rhythm Normal ECG When compared with ECG of 28-AUG-2019 18:48, No significant change was found Confirmed by PB LEBRON ([id number]), telegraph editor STANFORD MONROE ([id number]) on 05/06/2020 12:41:43 PM Referred By: Kj Leija Confirmed By:PB LEBRON
--- NOTE | 2020-05-01 05:48 | HP.PCM_ITS ---
Problem List (1) Biliary dyskinesia Status: Acute History and Physical Date of Admission: 05/01/20 Intake Visit Reasons: ABNORMAL HIDA DISCUSS SURGERY Chief Complaint: abn hida Test Architect Required: No Is patient in pain?: No Allergies morphine Allergy (Verified 04/19/20 12:21) Hives Medications esomeprazole magnesium 20 mg capsule,delayed release 20 mg PO DAILY 11/27/19 [History Confirmed 04/19/20] Cholecalciferol (VIT D3) [Vitamin D] 1,000 unit PO DAILY 12/08/19 [History Confirmed 04/19/20] Vits [Prenatabs FA] 1 tab PO DAILY 12/08/19 [History Confirmed 04/19/20] Is last menstrual period known: No Post menopausal: No Patient : No PFSH Medical History (Updated 04/19/20 @ 12:[address] Kj Leija MD) Biliary dyskinesia (Acute) Epigastric pain (Acute) Acute hepatitis (Acute) Pancytopenia (Acute) Infectious mononucleosis (Acute) Ovarian cyst (Chronic) Abnormal liver function tests (Chronic) Surgical History (Updated 04/19/20 @ 12:15 by Zeinab Rasmussen) S/P tonsillectomy (Acute) S/P ACL surgery (Acute) S/P appendectomy (Acute) History of esophagogastroduodenoscopy (EGD) (Acute) Family History Grandmother Diabetes Father Hypertension Social History (Updated 04/19/20 @ 12:[address] Kj Leija MD) Smoking Status: Never smoker HPI HPI HPI: PROSPER REA, is a 29 F who presents to the office today for ongoing general surgical consultation regarding abdominal issues. Please again note that she has had a previous perforated appendicitis that ended up requiring a right hemicolectomy. She was diagnosed with mononucleosis recently had abdominal pain elevated liver function tests associated with that. A review of her history and testing noted below. She has resolved those issues. Recent laboratory requested by myself demonstrates normal laboratory normal liver function tests and no elevation of sed rate or CRP. Her current complaint revolves around ongoing problems with nausea feeling of gas bloating reflux symptoms fatty food intolerance. During her previous evaluation she was noted to have an abnormal hepatobiliary scan with a diminished ejection fraction. Her previous upper endoscopy showed a small hiatal hernia some very minimal gastritis that was H. pylori negative. She does take Nexium treatment. Laboratory from April 17, 2020 demonstrates a white blood cell count of 6.1 with a hemoglobin 12.6 and hematocrit 40.9 and a platelet count of 290,000. Sed rate was 4. CRP less than 2.9. Complete metabolic profile was normal including normal liver function tests. HPI: PROSPER REA, is a 28 F who presents to the office today for surgical consultation regarding epigastric right upper quadrant pain and suspected possible peptic ulcer disease. I saw her back in August. She was having diarrhea bloating low abdominal pain abnormal liver function tests. A ultrasound suggests some fluid around the gallbladder but no stones. HIDA scan was diminished. However it was determined at that time that she had mononucleosis. She had mild splenomegaly. She was seen by gastroenterology up at [facility] and then she has been followed locally regarding her LFTs. More recently she has developed different symptoms. She is now concerned about some epigastric discomfort and some right upper quadrant discomfort. Some reflux symptoms. She denies bright red blood per rectum or melena. She remotely had a previous perforated appendicitis requiring a hemicolectomy. [facility] Medical Records Department [address] [place] [address] EGD Report Pathology demonstrated mild gastritis. H. pylori was negative. MR#: [id number] Name:PROSPER REA [facility] #:[id number] : 1990 28From: Kj Leija MD PCP:Jadon Lyn MD Status[place] [facility] Name: Prosper Rea Procedure Date: 12/12/2019 8:05 AM Date of : 1990 Age: 28 Procedure: Upper GI endoscopy Indications: Epigastric abdominal pain Providers: Kj Leija MD Referring MD: Jadon Lyn Medicines: See the Anesthesia note for documentation of the administered medications Complications: No immediate complications. Procedure: Pre-Anesthesia Assessment: - Prior to the procedure, a History and Physical was performed, and patient medications and allergies were reviewed. The patient's tolerance of previous anesthesia was also reviewed. The risks and benefits of the procedure and the sedation options and risks were discussed with the patient. All questions were answered, and informed consent was obtained. Prior Anticoagulants: The patient has taken no previous anticoagulant or antiplatelet agents. ASA Grade Assessment: II - A patient with mild systemic disease. After reviewing the risks and benefits, the patient was deemed in satisfactory condition to undergo the procedure. After obtaining informed consent, the endoscope was passed under direct vision. Throughout the procedure, the patient's blood pressure, pulse, and oxygen saturations were monitored continuously. The gastroscope was introduced through the mouth, and advanced to the second part of duodenum. The upper GI endoscopy was accomplished without difficulty. The patient tolerated the procedure well. Scope In: 8:14:32 AM Scope Out: 8:21:58 AM Total Procedure Duration Time 0 hours 7 minutes 26 seconds Findings: The Z-line was variable and was found 36 cm from the incisors. Biopsies were taken with a cold forceps for histology. The mid esophagus was normal. Biopsies were taken with a cold forceps for histology. A 1 cm hiatal hernia was present. Diffuse mildly erythematous mucosa without bleeding was found in the gastric antrum. Biopsies were taken with a cold forceps for histology. Localized mildly friable mucosa with contact bleeding was found on the greater curvature of the stomach. Biopsies were taken with a cold forceps for histology. The examined duodenum was normal. Biopsies were taken with a cold forceps for histology. Impression: - Z-line variable, 36 cm from the incisors. Biopsied. - Normal mid esophagus. Biopsied. - 1 cm hiatal hernia. - Erythematous mucosa in the antrum. Very minimal. Biopsied. - Friable gastric mucosa greater curvature. Undetermined etiology.. Biopsied. - Normal examined duodenum. Biopsied. Recommendation: - Await pathology results. - Discharge patient to home. - Resume previous diet. - Continue present medications. - Telephone my office for pathology results in 1 week. Procedure Code(s): --- Professional --- 08672, Esophagogastroduodenoscopy, flexible, transoral; with biopsy, single or multiple Diagnosis Code(s): --- Professional --- K22.8, Other specified diseases of esophagus K44.9, Diaphragmatic hernia without obstruction or gangrene K31.89, Other diseases of stomach and duodenum R10.13, Epigastric pain CPT copyright 2017 [employer]. All rights reserved. The codes documented in this report are preliminary and upon construction management assistant review may be revised to meet current compliance requirements. Kj Leija MD 12/12/2019 8:29:39 AM This report has been signed electronically. Number of Addenda: 0 Note Initiated On: 12/12/2019 8:05 AM 12/12/19 0829 Date Kj Leija MD [facility] Imaging Services [address] [place] [address] Liver MR#: [id number] [id number] 1990 28 From: Jeana Frank MD PCP:Catherine Adair MD Status:REG ER Study:Liver Date of Exam:09/01/19 Exam#[id number] Ordering Dr: Seb Espana MD STUDY: ABDOMINAL ULTRASOUND - RIGHT UPPER QUADRANT REASON FOR VISIT: Female, 28 years old cholelithiasis history of mono. TECHNIQUE: Ultrasound evaluation of the right upper quadrant was performed with real-time and static may-scale imaging. TECHNICAL QUALITY: Adequate. COMPARISON: CT dated August 24, 2019 FINDINGS: Liver: The liver measures 22.0 cm. There is increased echogenicity consistent with fatty infiltration. There is focal fatty sparing including adjacent to the gallbladder. The bile ducts are within normal limits. There is hepatic color flow. The direction of portal flow is hepatopetal. There is no demonstrated mass lesion. Gallbladder: Normal distended gallbladder. The gallbladder wall measures 2.4 mm. There is a negative sonographic Vo's sign. There is trace pericholecystic fluid. There are no gallstones. Common Bile Duct (C.B.D.): The common bile duct measures 3.4 mm. Pancreas: Normal size of the head, body and tail of the pancreas. There is normal echogenicity of the pancreas. There is no demonstrated pancreatic mass or cyst. Right Kidney: Normal size of the right kidney the right kidney measures 3.5 cm in length. Normal renal cortex. There is no demonstrated renal mass or cyst. There is no right hydronephrosis. US/Liver IMPRESSION: Fatty infiltration of the liver associated with hepatomegaly. Pericholecystic fluid, may be reactive. Electronically Signed: Jeana Frank MD at 18:31 EST Tel , Service support , [facility] Imaging Services [address] [place] [address] Gallbladder MR#: [id number] [id number] 1990F 28 From: Carlos Peacock MD PCP:Catherine Adair MD Status:REG ER Study:Gallbladder Date of Exam:08/26/19 Exam#[id number] Ordering Dr: Olivia Du MD STUDY: ABDOMINAL ULTRASOUND - RIGHT UPPER QUADRANT REASON FOR VISIT: Female, 28 years old abnormal liver function tests. TECHNIQUE: Ultrasound evaluation of the right upper quadrant was performed with real-time and static may-scale imaging. TECHNICAL QUALITY: Adequate. COMPARISON: None. FINDINGS: Liver: The liver measures 18.7 cm. There is increased echogenicity consistent with fatty infiltration. The bile ducts are within normal limits. There is hepatic color flow. The direction of portal flow is hepatopetal. There is no demonstrated mass lesion. Gallbladder: Normal distended gallbladder. The gallbladder wall measures 2.5 mm. There is a negative sonographic Vo's sign. There is no pericholecystic fluid. There are no gallstones. Common Bile Duct (C.B.D.): The common bile duct measures 3 mm. Pancreas: Normal size of the head, body and tail of the pancreas. There is normal echogenicity of the pancreas. There is no demonstrated pancreatic mass or cyst. Right Kidney: Normal size of the right kidney. The right kidney measures 13.4 x 6.3 x 6.6 cm. Normal renal cortex. The right cortex measures 2.8 cm. There is no demonstrated renal mass or cyst. There is no right hydronephrosis. US/Gallbladder IMPRESSION: 1. Hepatomegaly. 2. Fatty infiltration of the liver. 3. No evidence of gallstones. Electronically Signed: Carlos Peacock MD at 11:32 EST Tel , Service support , [facility] Imaging Services [address] [place] [address] Hepatobilliary Img w/Pharm Int MR#: [id number] Name: PROSPER REA MRep #:[id number] : 1990F 28 From: Alberto Mancia DO PCP:Catherine Adair MD Status:REG CLI Study:Hepatobilliary Img w/Pharm Int Date of Exam:08/21/19 Exam#[id number] Ordering Dr: Kj Leija MD CLINICAL: 28-year-old female with reported history of abdominal pain and nausea. RADIONUCLIDE HEPATOBILIARY SCINTIGRAPHY COMPARISON: None available FINDINGS: Following the intravenous administration of 5.5 mCi of 99m Tc Mebrofenin, hepatobiliary images reveal: 1. Relatively prompt and homogeneous radiopharmaceutical concentration is noted by a normal sized liver. No parenchymal defects are identified. 2. Gallbladder activity is identified at 10 minutes post radiopharmaceutical administration. 3. Small intestinal tract is not visualized during 60 minutes of pre-cholecystokinin sequential image acquisition, small bowel is observed at following CCK infusion. 4. Washout of the radiopharmaceutical by the hepatic parenchyma appears qualitatively normal. Cholecystokinin (0.02 ug/kg) was administered intravenously over a 30-minute period. The post CCK gallbladder ejection fraction calculated at 20 minutes following Cholecystokinin administration was noted to be 23.0 % (normal greater than 35%). NM/Hepatobilliary Img w/Pharm Int IMPRESSION: 1. ABNORMAL 99m Tc Mebrofenin hepatobiliary imaging examination with Cholecystokinin. A. A gallbladder ejection fraction calculated to be less than 35% following the administration of Cholecystokinin is consistent with the presence of functional hepatobiliary disease (gallbladder and/or sphincter of Oddi dyskinesia) and/or organic hepatobiliary disease (chronic acalculous cholecystitis and/or cystic duct syndrome) in patients with intermediate to high pretest probabilities of hepatobiliary illness. (Luis Fernando Santillan et al, Journal of Nuclear Medicine 32:1695, 1991). Electronically Signed: Alberto Mancia DO at 22:23 EST Tel , Service support , [facility] Imaging Services [address] [place] [address] Abdomen/Pelvis WITH Contrast MR#: [id number] Name: PROSPER REA MRep #:[id number] : 1990F 28 From: Scotty Gallardo DO PCP:Catherine Adair MD Status:REG ER Study:Abdomen/Pelvis WITH Contrast Date of Exam:08/24/19 Exam#[id number] Ordering Dr: Indra Pastor MD STUDY: CT ABDOMEN AND PELVIS WITH CONTRAST REASON FOR EXAM: Female, 28 years old. Fever. Chills. Diaphoresis. Abdominal pain. Elevated liver enzymes. Abnormal HIDA scan. 3 months . The history of ruptured appendix and partial colectomy. RADIATION DOSAGE (If Supplied By Facility): CTDIvol = ( 11.9 ) mGy, DLP = ( 920.71 ) mGycm TECHNIQUE: Transaxial images were obtained from the dome of the diaphragm to the symphysis pubis with oral contrast. IV/Oral Isovue 370 100 was administered. Sagittal and coronal images were reconstructed. Individualized dose optimization techniques were used for this CT. COMPARISON: Hepatobiliary scan, August 21, 2019. FINDINGS: The visualized lung bases are unremarkable. The visualized portions of the heart are within normal limits. There is mild prominence of the diffusely fatty infiltrated liver. There is no evidence of focal mass. Normal gallbladder and extrahepatic biliary system. Spleen is enlarged but uniform in enhancement. Normal pancreas. Normal bilateral adrenal glands. Normal right kidney. Normal left kidney. Normal visualized ureters. Normal visualized stomach. Normal small intestine. Normal colon. There is non-visualization of the appendix. Normal abdominal aorta. Normal inferior vena cava. There is nonspecific subcentimeter aortocaval and periaortic lymph nodes. Normal urinary bladder. Uterus is anteverted and midline. There is a 2.4 cm left ovarian cyst. A 1 cm dominant follicle is seen in the right ovary. There is no pelvic lymphadenopathy or mass. No free air or free fluid is seen within the peritoneal cavity. Minimal umbilical hernia. There is a 1.8 x 1.6 x 1.8 cm left inguinal lymph node. Other subcentimeter inguinal nodes are seen bilaterally. Normal osseous structures. CT/Abdomen/Pelvis WITH Contrast IMPRESSION: 1. Top normal to mildly prominent liver with diffuse fatty infiltration. There is no focal mass. 2. Normal appearing gallbladder and biliary ductal system. 3. Splenomegaly. 4. Left ovarian cyst. 5. Large left inguinal lymph node with other subcentimeter bilateral inguinal nodes. 6. Subcentimeter nonspecific retroperitoneal lymphadenopathy. Electronically Signed: Scotty GallardoDO at 17:33 EST Tel [phone], Service support , CC: Catherine Adair MD; Indra Pastor MD ~ Land Leveler: Signed HPI HPI HPI: PROSPER REA, is a 29 F who presents to the office today for ROS General General: Yes weight change; no appetite, fatigue, colon cancer, breast cancer or weakness HEENT HEENT: No difficulty swallowing, eye injury, eye surgery, swollen glands or hoarseness Endo Endocrine: No thyroid disease, diabetes mellitus, thyroid cancer, Hair loss, heat intolerance or cold intolerance Skin Skin: No rash or changing moles Breast Breast: No left breast lump, right breast lump, nipple discharge, breast pain, abnormal mammogram, abnormal US or breast enlargement Musc Musculoskeletal: No back problems, arthritis, rheumatoid arthritis, gout or joint pain Cardio Cardiovascular: No murmur, pacemaker, heart disease, atrial fibrillation, high blood pressure, heart attack, heart stent, palpitations, shortness of breat with exertion or chest pain Psych Psychiatric: Yes anxiety; no depression or hearing voices Resp Respiratory: No shortness of breath, No sleep apnea, No cough, No COPD, No asthma, No emphysema, No wheezing Gastro Gastrointestinal: No abdominal pain, No nausea or vomiting, Yes diarrhea, No constipation, No blood in stool, Yes acid reflux, No hemorrhoids, No ulcers, No gallbladder problem, No black,tarry stools Prakash Hematologic: No blood thinners, No blood disorders, No bleeding, No anemia, No blood clots Neuro Neurologic: No weakness Exam Const General: cooperative, healthy appearing, comfortable, no acute distress Nutritional Appearance: average body habitus Orientation: alert, awake HENMT Head: normal to inspection Eyes General: appearance normal, both eyes and all related structures Chest Breast Palpation: No nipple discharge Resp Effort & Inspection: normal respiratory effort Auscultation: clear to auscultation bilaterally Cardio Rate: regular rate Rhythm: regular rhythm Heart Sounds: no murmurs GI Palpation: soft, no hepatosplenomegaly Auscultation: normal bowel sounds Other: Well-healed epigastric vertical incision. Well-healed right upper quadrant port site. Soft, nontender, nondistended, unremarkable bowel sounds Neuro Cognition: normal cognition Extrem General: no calf tenderness Psych Affect: normal affect Assessment & Plan Problems 1. Biliary dyskinesia K82.8 Plan 29-year-old female with ongoing epigastric postprandial fatty food intolerance bloating nausea and intermittent reflux symptoms. As previously we again discussed laparoscopic cholecystectomy with selective cholangiography and the technique, benefit, risk of alternatives. She has now resolved for mononucleosis but still has persistent symptoms. I have offered her surgical removal of her gallbladder. I will need to take great care in entering the abdo men because of her previous right colectomy and perforated appendicitis. She is aware of the technique, benefit, risk, alternatives. No guarantees of success have been offered. We will schedule and proceed at her discretion. She is aware of the Covid-19 pandemic. I am hoping to be able to keep this as an outpatient procedure. [facility] is currently reporting a low local incidence. CC: Rona Potts.D., F.A.C.S. Coding Level of Care Code Off vis,est,level 2 Diagnoses Biliary dyskinesia K82.8 I have re-examined the patient. There are no clinical changes since date of exam. Procedure Criteria Procedure Type: Elective COVID Risk Discussion: The surgeon/proceduralist and patient have discussed in detail the risk of exposure to and/or potential harm posed by the COVID-19 virus with having a surgery/procedure at this time versus the risk of delaying the surgery/procedure. It is not possible to know either the risk of delaying the surgery or procedure or chance of getting an infection with perfect accuracy, but a joint decision was made between the patient and the surgeon/proceduralist to proceed at this time with the scheduled surgery/procedure as indicated on the consent form.
--- NOTE | 2020-05-01 05:49 | DCINST_ITS ---
Discharge Diet: Light diet - advance as tolerated - if you have questions about your diet instructions, please talk to you doctor. Discharge Activity: May Not Drive - for 3-5 days or while taking narcotic pain medicine. May shower in (days): 1 Lifting Restrictions: 10 pounds Call your doctor if your incision/area has: Continuous Slow Oozing, Sudden Increased Bleeding, Increased Pain/ Swelling, Increased Redness, Foul Smelling Discharge Call your doctor if you observe: Fever of 101 or Higher Suture Line Care: Avoid Pulling/Pushing, Avoid Pinching/Bending Additional Dressing/Incision Instructions:: Change or remove dressing in 4 days. Leave steri-strips in place for 1 week. Allergies/Adverse Reactions: Allergies morphine Allergy (Verified 05/01/20 05:42) Hives Medications to take at Discharge NK 04/24/20 Orders to be completed after discharge: CORONAVIRUS 19, FARIDEH SCREEN Time Frame: 04/26/20, Facility: [facility], Location: Laboratory ,Urine Time Frame: 05/01/20, Facility: [facility], Location: Laboratory Primary Care Physician: Jadon Lyn MD [Primary Care Provider] - Test Results: Test results from this visit will be discussed in further detail at your follow- up appointment, if applicable. Please Follow Up With: Kj Leija MD - [phone] When: Call to make an appointment to be seen in about 10 days.
[2020-05-01] MEDS: Lactated Ringers 1,000 ML 100 ML IV ×3 (06:04→11:26)
[2020-05-01 06:24] LABS: Internal QC Validated? YES +Cl - CLEAR BKGD; Pregnancy, Urine Negative Negative
[2020-05-01] MEDS: Cefazolin 2 GM in 0.9% Normal Saline 100 ML IV (07:18)
--- NOTE | 2020-05-01 07:30 | RAD_ITS ---
CLINICAL HISTORY: Female, 29 years old. Cholecystectomy PROCEDURE: CHOLANGIOGRAM - intraoperative CONSENT: Informed consent obtained SEDATION: Cannulized sedation FLUOROSCOPY TIME (if supplied): (26) seconds Placement of the catheter and the procedure were performed by: Dr. Leija Fluoroscopy was provided by Fredy Yan, who was present in the room time of the procedure. TECHNIQUE: (All elements of maximal sterile barrier technique followed, including US elements as applicable) After removal of the gallbladder, cannulized the cystic duct remnant and contrast was injected into the biliary tree. There is normal filling of the intra and extrahepatic biliary tree. No extravasation contrast is noted. There is free flow of contrast into the duodenum. No stricture or mass lesion noted. RAD/Cholangiogram/ O R,Initial IMPRESSION: Normal intraoperative cholangiogram Electronically Signed: Rc Roberson MD at 9:00 EDT , Service support ,
[2020-05-01] MEDS: Bupivacaine Mpf 0.5% 30 ML VIAL (08:40)
--- NOTE | 2020-05-01 08:46 | PCM.OPRPT ---
Problem List (1) Biliary dyskinesia Status: Acute Report of Operation Date of Procedure: 05/01/20 Pre-Operative Diagnosis: Biliary dyskinesia Post-Operative Diagnosis: Same plus intra-abdominal adhesions Surgery/Procedure Performed:: Laparoscopic lysis of adhesions. Laparoscopic cholecystectomy with cholangiography Description of Surgical Findings:: Timeout and informed consent was obtained. 29-year-old female was taken the operating place upon the table underwent general endotracheal intubation anesthesia. Ancef 2 g were given intravenously preoperatively. The the abdomen was sterilely prepped and draped. She had a previous midline incision from a right colectomy. In the left epigastrium area instilled 0.5% Marcaine throughout the procedure total 30 cc was used. I used a Visiport technology to get clean access to the abdomen. The abdomen was insufflated with CO2 to a pressure of 10 mmHg pressure. I then was able to place a 5 mm port on direct physician in the epigastric area. Placed another 5 mm port in the right lateral upper quadrant. I then did sharp and electrocautery dissection to dissect adhesions free from the mid epigastrium down to the umbilicus. There was no bowel involvement this was all omentum. I was able to get enough dissected free to free up the area at the umbilicus. I made a vertical incision at the inferior portion of the umbilicus inserted a 10 mm trocar under direct visitation. I was then able to grasp the gallbladder and retract it. The infundibular area is quite lengthened the gallbladder was somewhat embedded within the liver. Tedious dissection was required until finally I had the critical view where I had the cystic duct dissected for a significant distance and I had the cystic artery secured with hemo-lock clips proximally and distally. I then transected that artery. I placed a hemo-lock clip on the cystic duct placed a cholangiogram catheter in through a 14-gauge Angiocath again fluoroscopic control cholangiograms. This demonstrated the ductal anatomy to be very small throughout however additionally on the cystic duct which was quite elongated. I transected the cystic duct then tediously dissected with the gallbladder from the liver bed. Gallbladder was somewhat fragile small amount of bile spillage occurred from just 1 of the graspers that was rapidly aspirated free and controlled. The gallbladder was then completely released and placed within a retrieval bag. The right upper quadrant was carefully irrigated and aspirated free of fluid. Hemostasis was intact. Hemo-lock clips were intact. The abdomen was then allowed to deflate of the CO2 through an antiviral valve. The gallbladder was exited through the 10 mm port. The fascia at that umbilicus was approximated in interrupted 2-0 Vicryl [id number] suture in a simple suture of 0 Vicryl. Skin edges approximated interrupted 4 Monocryl subdermal stitches. Steri-Strips Telfa OpSite dressings applied. Sponge and instrument and needle counts were reported to the surgeon to be correct. Blood loss minimal. Specimens gallbladder. Drains none. Blood loss minimal. The patient was taken to the recovery area in satisfactory condition without apparent complication Kj Leija M.D., F.A.C.S. Type of Anesthesia:: General Anesthesiologist: Devyn Paz
[2020-05-01] MEDS: HYDROcodone Bitartrate/Apap 5/325 Tablet PO (13:24)
== END 2020-05-01 13:59 | disposition home or self-care (01) ==
LOC: SDC 05:28 → AC 05:30
PROVIDERS: Anesthesiology; PCP Family Medicine; Referring Provider Surgery; Visit Provider Surgery
PROC: (CPT 47610; principal; 2020-05-01 07:10)
DX: K81.1 Chronic cholecystitis (principal); K21.9 Gastro-esophageal reflux disease without esophagitis; Z86.19 Personal history of other infectious and parasitic diseases; Z90.49 Acquired absence of other specified parts of digestive tract
CPT/HCPCS: 47563; 74300; 76000; 81025; 87635; 88304; 93005; G2023; J7120; J2405; U0003

== ENCOUNTER → 2020-08-16 08:55 | Outpatient (CLI) | payer OTHER, SELFPAY ==
[2020-05-01 05:55] VITALS: BMI 27.5
[2020-08-16 10:12] LABS: Absolute Lymphocyte Count 1.86 X10^3/uL (0.83-4.51); Absolute Neutrophil Count 2.6 X10^3/uL (2.0-7.7); Basophil# 0.04 X10^3/uL; Basophil% 0.8 % (0-1); Eosinophils% 3.8 % (0-5); Hematocrit 38.5 % (37-47); Hemoglobin 12.5 g/dL (12.0-15.0); Lymphocyte # 1.86 X10^3/ul (4.0); Lymphocyte % 35.3 % (19-41); Mean Corp Hgb Conc 32.5 g/dL (32-36); Mean Corpuscular Hgb 28.2 pg (27.0-32.0); Mean Corpuscular Volume 86.7 fL (81-99); Mean Platelet Vol. 10.4 fl (6.2-12.0); Monocyte# 0.57 X10^3/uL; Monocyte% 10.8 % (0-10); NRBC Flagged by Analyzer 0 % (0-5); Neutrophil # 2.58 X10^3/uL (2.7-7.7); Neutrophil % 48.9 % (47-70); Platelet Count 276 K/mm3 (150-450); RBC Distribution Width CV 12.1 % (11.6-14.6); RBC Distribution Width SD 38.9 fl (35.1-43.9); Red Blood Count 4.44 M/mm3 (4.2-5.4); White Blood Count 5.3 K/mm3 (4.4-11.0)
[2020-08-16 10:51] LABS: ALB/GLOB Ratio 1.4 RATIO (0.9-2.4); AST(SGOT) 38 U/L (15-37); Alanine Aminotransfer ALT/SGPT 89 U/L (13-56); Albumin, Serum 4.2 g/dL (3.2-5.0); Alkaline Phosphatase 75 U/L (45-117); Anion Gap 5 (5-15); BUN 8 mg/dL (7-18); BUN/Creat Ratio 11.1 RATIO (10-20); Calcium,Total 8.9 mg/dL (8.5-10.1); Chloride 107 mmol/L (98-107); Creatinine, Serum 0.72 mg/dL (0.55-1.02); EST Glomerular Filtration Rate 102 mL/min (>60); Est Glom Filt Rate - Afr Amer 123 mL/min (>60); Glucose 94 mg/dL (74-106); Potassium 4.4 mmol/L (3.5-5.1); Protein, Total 7.2 g/dL (6.4-8.2); Sodium Level 139 mmol/L (136-145); Thyroid Stim Hormone (TSH) 0.65 uIU/mL (0.358-3.74)
== END ==
PROVIDERS: PCP Family Medicine; Referring Provider Family Medicine; Visit Provider Family Medicine
DX: R74.01 Elevation of levels of liver transaminase levels (principal); F41.1 Generalized anxiety disorder
CPT/HCPCS: 36415; 80053; 84443; 85025

== ENCOUNTER → 2020-10-15 | Outpatient (CLI) | payer OTHER, SELFPAY ==
[2020-05-01 05:55] VITALS: BMI 27.5
== END | disposition home or self-care (01) ==
LOC: LABSPEC 11:45
PROVIDERS: PCP Family Medicine; Referring Provider Family Medicine; Visit Provider Family Medicine
DX: Z20.822 Contact with and (suspected) exposure to COVID-19 (principal)

== ENCOUNTER → 2020-10-30 | Outpatient (CLI) | payer OTHER, SELFPAY ==
[2020-10-30 13:23] VITALS: BMI 28.0
[2020-11-04 13:53] LABS: HPV Reflexed? NOT INDICATED
== END | disposition home or self-care (01) ==
LOC: LABSPEC 15:55
PROVIDERS: PCP Family Medicine; Referring Provider Obstetrics & Gynecology; Visit Provider Obstetrics & Gynecology
DX: Z12.4 Encounter for screening for malignant neoplasm of cervix (principal); R35.0 Frequency of micturition
CPT/HCPCS: 87086; 87088; 87186; 88175; G0145

== ENCOUNTER → 2021-05-23 13:51 | Outpatient (CLI) | payer OTHER, SELFPAY ==
[2020-10-30 13:23] VITALS: BMI 28.0
[2021-05-23 17:51] LABS: Absolute Lymphocyte Count 2.11 X10^3/uL (0.83-4.51); Absolute Neutrophil Count 3.1 X10^3/uL (2.0-7.7); Basophil# 0.02 X10^3/uL; Basophil% 0.3 % (0-1); Eosinophil# 0.11 X10^3/uL; Eosinophils% 1.9 % (0-5); Hematocrit 37.1 % (37-47); Hemoglobin 11.9 g/dL (12.0-15.0); Lymphocyte # 2.11 X10^3/ul (0.83-4.51); Mean Corp Hgb Conc 32.1 g/dL (32-36); Mean Corpuscular Hgb 28.3 pg (27.0-32.0); Mean Corpuscular Volume 88.1 fL (81-99); Monocyte# 0.54 X10^3/uL; Monocyte% 9.2 % (0-10); NRBC Flagged by Analyzer 0 % (0-5); Neutrophil # 3.07 X10^3/uL (2.7-7.7); Neutrophil % 52.4 % (47-70); Platelet Count 268 K/mm3 (150-450); RBC Distribution Width CV 12.6 % (11.6-14.6); RBC Distribution Width SD 40.4 fl (35.1-43.9); Red Blood Count 4.21 M/mm3 (4.2-5.4); White Blood Count 5.9 K/mm3 (4.4-11.0)
[2021-05-23 18:06] LABS: ALB/GLOB Ratio 1.3 RATIO (0.9-2.4); AST(SGOT) 23 U/L (15-37); Alanine Aminotransfer ALT/SGPT 53 U/L (13-56); Albumin, Serum 3.9 g/dL (3.2-5.0); Alkaline Phosphatase 61 U/L (45-117); Anion Gap 6 (5-15); BUN 8 mg/dL (7-18); BUN/Creat Ratio 11.7 RATIO (10-20); Calcium,Total 8.9 mg/dL (8.5-10.1); Chloride 104 mmol/L (98-107); Creatinine, Serum 0.69 mg/dL (0.55-1.02); EST Glomerular Filtration Rate 107 mL/min (>60); Est Glom Filt Rate - Afr Amer 130 mL/min (>60); Globulin 3.1 g/dL (2.2-4.2); Glucose 84 mg/dL (74-106); Potassium 3.6 mmol/L (3.5-5.1); Sodium Level 137 mmol/L (136-145); Thyroid Stim Hormone (TSH) 0.64 uIU/mL (0.358-3.74)
== END ==
PROVIDERS: PCP Family Medicine; Referring Provider Family Medicine; Visit Provider Registered Nurse
DX: R53.83 Other fatigue (principal)
CPT/HCPCS: 36415; 80053; 84443; 85025

== ENCOUNTER 2021-10-31 17:01 | Outpatient (CLI) | payer OTHER, SELFPAY | END 2021-10-31 23:59 | disposition short-term general hospital (02) | PROVIDERS: PCP Family Medicine; Visit Provider Obstetrics & Gynecology | DX: N89.8 Other specified noninflammatory disorders of vagina (principal) | CPT/HCPCS: 87070; 87077; 87205 ==

== ENCOUNTER 2021-11-06 16:01 | Outpatient (CLI) | payer OTHER, SELFPAY ==
[2021-11-06 18:13] LABS: T4 Free Direct 0.83 ng/dL (0.76-1.46); Thyroid Stim Hormone (TSH) 0.96 uIU/mL (0.358-3.74)
[2021-11-07 16:03] LABS: Absolute Lymphocyte Count 2.53 X10^3/uL (0.83-4.51); Absolute Neutrophil Count 3.3 X10^3/uL (2.0-7.7); Basophil# 0.05 X10^3/uL; Basophil% 0.8 % (0-1); Eosinophils% 1.5 % (0-5); Hematocrit 37.6 % (37-47); Hemoglobin 12.1 g/dL (12.0-15.0); Lymphocyte # 2.53 X10^3/ul (0.83-4.51); Lymphocyte % 38.5 % (19-41); Mean Corp Hgb Conc 32.2 g/dL (32-36); Mean Corpuscular Hgb 28.8 pg (27.0-32.0); Mean Corpuscular Volume 89.5 fL (81-99); Mean Platelet Vol. 11.2 fl (6.2-12.0); Monocyte# 0.56 X10^3/uL; Monocyte% 8.5 % (0-10); NRBC Flagged by Analyzer 0 % (0-5); Neutrophil # 3.31 X10^3/uL (2.7-7.7); Neutrophil % 50.4 % (47-70); Platelet Count 296 K/mm3 (150-450); RBC Distribution Width CV 12.2 % (11.6-14.6); RBC Distribution Width SD 40.3 fl (35.1-43.9); White Blood Count 6.6 K/mm3 (4.4-11.0)
[2021-11-07 16:05] LABS: ALB/GLOB Ratio 1.3 RATIO (0.9-2.4); AST(SGOT) 24 U/L (15-37); Alanine Aminotransfer ALT/SGPT 53 U/L (13-56); Albumin, Serum 4.1 g/dL (3.2-5.0); Alkaline Phosphatase 51 U/L (45-117); Anion Gap 7 (5-15); BUN 9 mg/dL (7-18); BUN/Creat Ratio 11.7 RATIO (10-20); Calcium,Total 8.3 mg/dL (8.5-10.1); Chloride 106 mmol/L (98-107); Creatinine, Serum 0.77 mg/dL (0.55-1.02); EST Glomerular Filtration Rate 93 mL/min (>60); Est Glom Filt Rate - Afr Amer 113 mL/min (>60); Ferritin 32 ng/mL (8-252); Free T3 2.4 pg/mL (2.18-3.98); Globulin 3.1 g/dL (2.2-4.2); Glucose 80 mg/dL (74-106); Lipase 206 U/L (73-393); Potassium 3.6 mmol/L (3.5-5.1); Protein, Total 7.2 g/dL (6.4-8.2); Sodium Level 137 mmol/L (136-145)
[2021-11-07 16:15] LABS: Vitamin B12 657 pg/mL (211-911); Vitamin D,25 Hydroxy 35.8 ng/mL
[2021-11-11 07:08] LABS: Endomysial Antibody IgA Negative (Negative)
[2021-11-11 09:16] LABS: Immunoglobulin A 42 mg/dL (87-352); t-Transglutaminase IgA <2 U/mL (0-3)
[2021-11-11 10:12] LABS: ANTINUCLEAR ANTIBODIES DIRECT Negative (Negative)
== END 2021-11-06 23:59 | disposition short-term general hospital (02) ==
LOC: MFPLAB 16:05
PROVIDERS: PCP Family Medicine; Referring Provider Family Medicine; Visit Provider Obstetrics & Gynecology
DX: R53.81 Other malaise (principal); R53.83 Other fatigue; R19.7 Diarrhea, unspecified; K90.9 Intestinal malabsorption, unspecified
CPT/HCPCS: 36415; 80053; 82306; 82607; 82728; 82784; 83516; 83690; 84439; 84443; 84481; 85025; 86038; 86255

== ENCOUNTER 2022-06-12 08:36 | Day surgery (SDC) | payer OTHER, SELFPAY ==
[2022-06-12] VITALS (7 sets, daily range): BP systolic 81–132; BP diastolic 57–72; PULSE 78–103; RESP 16; TEMP 36.7–37.4; O2SAT 98–100; BMI 25.7
--- NOTE | 2022-06-12 | GASB_PTH ---
PATIENT: WILLIAM HARRY LOC: EN U#:[id number] AGE/SX: 31/F ROOM: RE06/12/[address]: Dr. Kj Leija MD : 1990 BED: DIS: 06/12/2022 SPEC #: [id number] RECD: 06/12/22 12:02 STATUS: RAZ MICHAEL #: [id number] ELYSE: 06/12/22 00:[address]: Kj Leija DEPT: SURGICAL PATHOLOGY RECD BY: Adithya Isaac ENTERED: 06/12/22 12:03 SP TYPE: Gastric Bx OTHR DR: Dr. Jadon Lyn MD Tissues: A - Gastric mucous membrane B - Esophageal mucous membrane C - Ileum, NOS Procedures: Surgery Specimen Level IV HEADER OPERATION: Colonoscopy, EGD ([facility] [place]) with biopsies PRE-OP DIAGNOSIS: GERD, diarrhea, rectal bleeding TISSUE SUBMITTED: A ? Antrum biopsy for H. pylori and path, B ? Distal esophagus biopsy, C ? Terminal ileum biopsy MICROSCOPIC DIAGNOSIS A. Antrum, biopsy: Mild gastritis. See microscopic description and comment. B. Distal esophagus, biopsy: Fragments of squamous epithelium with changes consistent with eosinophilic esophagitis. See comment. C. Terminal ileum, biopsy: A fragment of small intestinal mucosa, no pathologic diagnosis. SJ:rg 06/16/2022 COMMENT A. The results of immunohistochemistry for Helicobacter pylori will be reported separately ([id number]). B. Increased number of eosinophils (>20 per high power field) are noted, consistent with eosinophilic esophagitis. Correlation with clinical, endoscopic findings and appropriate follow-up are necessary. MICROSCOPIC DESCRIPTION Slides are reviewed. A. The specimen shows fragments of gastric mucosa with chronic inflammatory cell infiltrates in the lamina propria consisting of lymphocytes and plasma cells, consistent with mild chronic gastritis. GROSS DESCRIPTION A - Received in fixative is one container labeled with the patient's name and designated antrum biopsy. The specimen consists of one irregular fragment of light sam soft tissue that measures 0.4 x 0.3 x 0.1 cm. The specimen is totally submitted in one cassette. B - Received in fixative is one container labeled with the patient's name and designated distal esophagus biopsy. The specimen consists of multiple irregular fragments of light sam soft tissue that in aggregate measure 0.9 x 0.3 x 0.1 cm. The specimen is totally submitted in one cassette. C - Received in fixative is one container labeled with the patient's name and designated terminal ileum. The specimen consists of one irregular fragment of light sam soft tissue that measures 1 x 0.3 x 0.1 cm. The specimen is totally submitted in one cassette. / SJ:rg 06/12/2022 TC:3 CPT: 32668 x3
--- NOTE | 2022-06-12 08:43 | PCM.HP.BLA ---
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 Abdominal pain Abnormal liver function tests Acute hepatitis Amenorrhea Anemia Anxiety, generalized Biliary colic Biliary dyskinesia COVID-19 Epigastric pain GERD (gastroesophageal reflux disease) Gestational diabetes mellitus (GDM) IgA deficiency Infectious mononucleosis Irritable bowel syndrome with diarrhea Malabsorption syndrome Metabolic syndrome Non-celiac gluten sensitivity Ovarian cyst Pancytopenia Sinusitis Weight gain, abnormal Surgical History? H/O hemicolectomy History of cholecystectomy (~04/2020) History of esophagogastroduodenoscopy (EGD) S/P ACL surgery S/P appendectomy S/P tonsillectomy Family History? Grandmother DiabetesFather HypertensionGrandfather CancerSister Crohn's disease Social History? Smoking Status:? Never smoker alcohol intake:? current details:? occasionally substance use type:? does not use caffeine:? Yes what type of physical activity do you participate in:? aerobics frequency:? 5-6 times per week seatbelt use:? always do you feel safe at home:? Yes additional social history:? -Martin HPI HPI HPI: WILLIAM HARRY, is a 31 F who presents to the office today for surgical consultation regarding rectal bleeding.? The patient is referred by Dr. Jadon Lyn and a written copy of my surgical consult and recommendations will return to him.? 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 She has a history of IBS and GERD.? Also noting generalized abdominal pain.? She is complaining of some blood when she wipes.? She has had urgent diarrhea.? No fever or chills.? This is been ongoing now for 3 to 4 weeks and is not relenting.? There was some thought that she might be gluten insufficient and she came off her diet when she was on vacation but her symptoms have failed to cease. Sister with Crohn's disease.? Previous colonoscopy 2010 subsequent to her fecal fistula.? No acute findings at that time. Reich concerns or cramping urgent bowel movements some bright red blood per rectum fatigue reflux symptoms. ROS General General: Yes fatigue; No weight change, appetite, colon cancer, breast cancer or weakness HEENT HEENT: No difficulty swallowing, eye injury, eye surgery, swollen glands or hoarseness Endo Endocrine: No thyroid disease, diabetes mellitus, thyroid cancer, Hair loss, heat intolerance or cold intolerance Skin Skin: No rash or changing moles [facility] [place]culoskeletal: No back problems, arthritis, rheumatoid arthritis, gout or joint pain Cardio Cardiovascular: No murmur, pacemaker, heart disease, atrial fibrillation, high blood pressure, heart attack, heart stent, palpitations, shortness of breat with exertion or chest pain Psych Psychiatric: Yes anxiety; No depression or hearing voices Resp Respiratory: No shortness of breath, No sleep apnea, No cough, No COPD, No asthma, No emphysema and No wheezing Gastro Gastrointestinal: Yes abdominal pain, Yes nausea or vomiting, Yes diarrhea, No constipation, Yes blood in stool, Yes acid reflux, No hemorrhoids, No ulcers, No gallbladder problem and Yes black,tarry stools Prakash Hematologic: No blood thinners, No blood disorders, No bleeding, No anemia and No blood clots Neuro Neurologic: No weakness Exam Const General: cooperative, healthy appearing, comfortable and no acute distress [facility] Head: normal to inspection Eyes General: appearance normal, both eyes and all related structures Resp Effort & Inspection: normal respiratory effort Auscultation: clear to auscultation bilaterally GI Palpation: soft and no hepatosplenomegaly Other: Well-healed supraumbilical vertical incision from hemicolectomy [facility] [place] Cervical Spine: normal cervical lordosis Skin General: no rashes or lesions noted Neuro General: patient alert, patient awake and patient oriented x3 Extrem General: no calf tenderness Psych Appearance: grossly normal Assessment and Plan Assessment and Plan (1) GERD (gastroesophageal reflux disease): ?Status:?Acute (2) Diarrhea: ?Status:?Acute (3) Rectal bleeding: ?Status:?Acute Plan Variety of symptoms with reflux symptoms bloating diarrhea with some blood on the tissue.? Etiology not clear however it seems very reasonable to offer the patient a esophagogastroduodenoscopy with possible biopsy and colonoscopy with possible biopsy or polypectomy as indicated.? We will try to assist Dr. Jadon Lyn with diagnosis.? Fortunately the patient's clinical abdominal exam currently is benign.? She has had an opportunity to ask and have questions answered.? We will schedule and expedite her care. Her pertinent history is notable for sister who has Crohn's disease.? Since onset the patient's had a 4 pound weight loss with this.? She has done a self COVID test and was negative. We will schedule and expedite Copy: Dr. Jadon Leija M.D., F.A.C.S. I have re-examined the patient. There are no clinical changes since date of exam. Kj Leija M.D., F.A.C.S.
[2022-06-12 09:07] LABS: Internal QC Validated? YES +Cl - CLEAR BKGD; Pregnancy, Urine Negative Negative
[2022-06-12] MEDS: Lactated Ringers 1,000 ML 15 ML IV (09:15)
--- NOTE | 2022-06-12 09:45 | IMM_PTH ---
PATIENT: WILLIAM HARRY LOC: EN U#:[id number] AGE/SX: 31/F ROOM: RE06/12/[address]: Dr. Kj Leija MD : 1990 BED: DIS: 06/12/2022 SPEC #: [id number] RECD: 06/12/22 13:21 STATUS: RAZ REJennifer #: [id number] ELYSE: 06/12/22 09:[address]: Kj Leija DEPT: IMMUNOHISTOCHEMISTRY RECD BY: Idalia Rouse ENTERED: 06/12/22 13:21 SP TYPE: IMMUNO OTHR DR: Dr. Jadon Lyn MD Tissues: A - Stomach, NOS Procedures: H Pylori (initial) PHYSICIAN & INSTITUTION [place] [id number] SPECIMEN INFORMATION: Tissue Source: A ? Antrum biopsy Clinical Info: GERD, diarrhea, rectal bleeding Specimen Number: [id number] CPT code: 26119 METHODOLOGY: Deparaffinized sections of prefer/formalin-fixed tissue or PAP/DQ stained slides are incubated with monoclonal/polyclonal antibodies/oligonucleotide probes. Localization is made via biotin free immunoperoxidase method. Appropriate controls are performed and reacted as expected. Results on target cell population are indicated in the following table: RESULTS: ANTIBODY / CLONE RESULT Block A H Pylori (polyclonal) negative These tests were developed and their performance characteristics determined by [facility]. They may not have been cleared or approved by the U.S. Food and Drug Administration. The FDA has determined that such clearance or approval is not necessary. The above immunohistochemical/dualISH markers are ordered and reviewed by the Pathologist. INTERPRETATION: A. Antrum, biopsy: Negative for Helicobacter pylori organisms. SJ:yusuf 06/16/2022
--- NOTE | 2022-06-12 10:38 | OP.EGD_ITS ---
Patient Name: Prosper Rea Procedure Date: 06/12/2022 10:06 AM Date of : 1990 Age: 31 Procedure: Upper GI endoscopy Indications: Generalized abdominal pain Providers: Kj Leija MD Medicines: See the Anesthesia note for documentation of the administered medications Complications: No immediate complications. Procedure: Pre-Anesthesia Assessment: - Prior to the procedure, a History and Physical was performed, and patient medications and allergies were reviewed. The patient's tolerance of previous anesthesia was also reviewed. The risks and benefits of the procedure and the sedation options and risks were discussed with the patient. All questions were answered, and informed consent was obtained. Prior Anticoagulants: The patient has taken no previous anticoagulant or antiplatelet agents. ASA Grade Assessment: II - A patient with mild systemic disease. After reviewing the risks and benefits, the patient was deemed in satisfactory condition to undergo the procedure. After obtaining informed consent, the endoscope was passed under direct vision. Throughout the procedure, the patient's blood pressure, pulse, and oxygen saturations were monitored continuously. The was introduced through the mouth, and advanced to the second part of duodenum. The upper GI endoscopy was accomplished without difficulty. The patient tolerated the procedure well. Scope In: 10:16:47 AM Scope Out: 10:21:47 AM Total Procedure Duration Time 0 hours 5 minutes 0 seconds Findings: The examined esophagus was normal. Biopsies were taken with a cold forceps for histology. Diffuse mildly erythematous mucosa without bleeding was found in the gastric antrum. Biopsies were taken with a cold forceps for histology. The examined duodenum was normal. Impression: - Normal esophagus. Biopsied. - Erythematous mucosa in the antrum. Biopsied. Very mild. Possible bile reflux, await path. - Normal examined duodenum. Recommendation: - Discharge patient to home. - Resume previous diet. - Continue present medications. - Telephone my office for pathology results in 1 week. Procedure Code(s): --- Professional --- 56429, Esophagogastroduodenoscopy, flexible, transoral; with biopsy, single or multiple Diagnosis Code(s): --- Professional --- K31.89, Other diseases of stomach and duodenum R10.84, Generalized abdominal pain CPT copyright 2017 [employer]. All rights reserved. The codes documented in this report are preliminary and upon stock control supervisor review may be revised to meet current compliance requirements. Kj Leija MD 06/12/2022 10:38:11 AM This report has been signed electronically. Number of Addenda: 0 Note Initiated On: 06/12/2022 10:06 AM
--- NOTE | 2022-06-12 10:39 | OP.CCLET_ITS ---
06/12/2022 Jadon Lyn [address] [place] [address] Re : Upper GI endoscopy procedure for Prosper Beck Dear Dr. Lyn This procedure was performed on Sunday, June 12, 2022. My impressions and recommendations are as follows: Impressions : - Normal esophagus. Biopsied. - Erythematous mucosa in the antrum. Biopsied. Very mild. Possible bile reflux, await path. - Normal examined duodenum. Recommendations : - Discharge patient to home. - Resume previous diet. - Continue present medications. - Telephone my office for pathology results in 1 week. My findings are described in the full procedure note, which is enclosed. If I can be of further assistance, please feel free to contact me at Doctor phone number(s): Work: . Sincerely, Kj Leija MD 06/12/2022 10:38:11 AM This report has been signed electronically.
--- NOTE | 2022-06-12 10:45 | OP.COLON_ITS ---
Patient Name: Prosper Rea Procedure Date: 06/12/2022 10:21 AM Date of : 1990 Age: 31 Procedure: Colonoscopy Indications: Rectal bleeding Providers: Kj Leija MD Medicines: See the Anesthesia note for documentation of the administered medications Patient Profile: Last Colonoscopy: several years ago. Complications: No immediate complications. Procedure: Pre-Anesthesia Assessment: - Prior to the procedure, a History and Physical was performed, and patient medications and allergies were reviewed. The patient's tolerance of previous anesthesia was also reviewed. The risks and benefits of the procedure and the sedation options and risks were discussed with the patient. All questions were answered, and informed consent was obtained. Prior Anticoagulants: The patient has taken no previous anticoagulant or antiplatelet agents. ASA Grade Assessment: II - A patient with mild systemic disease. After reviewing the risks and benefits, the patient was deemed in satisfactory condition to undergo the procedure. After I obtained informed consent, the scope was passed under direct vision. Throughout the procedure, the patient's blood pressure, pulse, and oxygen saturations were monitored continuously. The was introduced through the anus and advanced to the ileocolonic anastomosis. The colonoscopy was performed without difficulty. The patient tolerated the procedure well. The quality of the bowel preparation was good. Ileocolonic anastomosis were photographed. Scope In: 10:23:28 AM Scope Withdrawal Time 0 hours 6 minutes 31 seconds Scope Out: 10:33:50 AM Total Procedure Duration Time 0 hours 10 minutes 22 seconds Findings: The digital rectal exam findings include non-thrombosed internal hemorrhoids and internal hemorrhoids that prolapse with straining, but spontaneously regress to the resting position (Grade II). There was evidence of a prior functional end-to-end colo-colonic anastomosis in the ascending colon. This was patent and was characterized by healthy appearing mucosa. Biopsies were taken with a cold forceps for histology. The exam was otherwise without abnormality. Impression: - Non-thrombosed internal hemorrhoids and internal hemorrhoids that prolapse with straining, but spontaneously regress to the resting position (Grade II) found on digital rectal exam. - Patent functional end-to-end colo-colonic anastomosis, characterized by healthy appearing mucosa. Biopsied terminal ileum--appeared healthy. - The examination was otherwise normal. Suspect rectal bleeding internal hemorrhoids in etiology Recommendation: - Discharge patient to home. - Resume previous diet. - Continue present medications. - Repeat colonoscopy at age 51. - Telephone my office for pathology results in 1 week. Procedure Code(s): --- Professional --- 74565, Colonoscopy, flexible; with biopsy, single or multiple Diagnosis Code(s): --- Professional --- K64.1, Second degree hemorrhoids Z98.0, Intestinal bypass and anastomosis status K62.5, Hemorrhage of anus and rectum CPT copyright 2017 [employer] [employer]. All rights reserved. The codes documented in this report are preliminary and upon outpatient coder review may be revised to meet current compliance requirements. Kj Leija MD 06/12/2022 10:44:43 AM This report has been signed electronically. Number of Addenda: 0 Note Initiated On: 06/12/2022 10:21 AM
--- NOTE | 2022-06-12 10:46 | OP.CCLET_ITS ---
06/12/2022 Jadon Lyn [address] [place] [address] Re : Colonoscopy procedure for Prosper Beck Dear Dr. Lyn This procedure was performed on Sunday, June 12, 2022. My impressions and recommendations are as follows: Impressions : - Non-thrombosed internal hemorrhoids and internal hemorrhoids that prolapse with straining, but spontaneously regress to the resting position (Grade II) found on digital rectal exam. - Patent functional end-to-end colo-colonic anastomosis, characterized by healthy appearing mucosa. Biopsied terminal ileum--appeared healthy. - The examination was otherwise normal. Suspect rectal bleeding internal hemorrhoids in etiology Recommendations : - Discharge patient to home. - Resume previous diet. - Continue present medications. - Repeat colonoscopy at age 51. - Telephone my office for pathology results in 1 week. My findings are described in the full procedure note, which is enclosed. If I can be of further assistance, please feel free to contact me at Doctor phone number(s): Work: . Sincerely, Kj Leija MD 06/12/2022 10:44:43 AM This report has been signed electronically.
== END 2022-06-12 11:22 | disposition home or self-care (01) ==
LOC: EN 08:38 → AC 08:40
PROVIDERS: Anesthesiology; PCP Family Medicine; Referring Provider Family Medicine; Visit Provider Surgery
PROC: 0DJD8ZZ Inspection of Lower Intestinal Tract, Via Natural or Artificial Opening Endoscopic (ICD-10-PCS; CPT 45378; principal; 2022-06-12 09:40)
DX: K20.0 Eosinophilic esophagitis (principal); K29.50 Unspecified chronic gastritis without bleeding; K64.1 Second degree hemorrhoids; K31.89 Other diseases of stomach and duodenum; R73.03 Prediabetes; Z86.16 Personal history of COVID-19; Z79.84 Long term (current) use of oral hypoglycemic drugs; Z98.0 Intestinal bypass and anastomosis status
CPT/HCPCS: 45380; 43239; 81025; 88305; 88342; J7120; J2405

== ENCOUNTER → 2022-06-29 | Outpatient (CLI) | payer OTHER, SELFPAY ==
[2022-07-04 19:07] LABS: Beef <0.10 kU/L (Class 0); Corn <0.10 kU/L (Class 0); Egg, Whole <0.10 kU/L (Class 0); Milk (Cow) <0.10 kU/L (Class 0); Peanut <0.10 kU/L (Class 0); Pork <0.10 kU/L (Class 0); Soybean <0.10 kU/L (Class 0); Wheat <0.10 kU/L (Class 0)
[2022-07-05 10:49] LABS: Chocolate <0.10 kU/L (Class 0)
== END | disposition home or self-care (01) ==
LOC: MFPLAB 12:02
PROVIDERS: PCP Family Medicine; Visit Provider Family Medicine
DX: K58.0 Irritable bowel syndrome with diarrhea (principal)
CPT/HCPCS: 36415; 86003; 86005

== ENCOUNTER → 2022-07-03 | Outpatient (CLI) | payer OTHER, SELFPAY ==
[2022-07-03 16:09] LABS: Absolute Lymphocyte Count 2.28 X10^3/uL (0.83-4.51); Basophil# 0.05 X10^3/uL; Basophil% 0.8 % (0-1); Eosinophil# 0.12 X10^3/uL; Hematocrit 36.3 % (37-47); Lymphocyte # 2.28 X10^3/ul (0.83-4.51); Lymphocyte % 37.8 % (19-41); Mean Corp Hgb Conc 33.1 g/dL (32-36); Mean Corpuscular Hgb 29.3 pg (27.0-32.0); Mean Corpuscular Volume 88.5 fL (81-99); Mean Platelet Vol. 10.1 fl (6.2-12.0); NRBC Flagged by Analyzer 0 % (0-5); Neutrophil # 2.97 X10^3/uL (2.7-7.7); Neutrophil % 49.2 % (47-70); Platelet Count 293 K/mm3 (150-450); RBC Distribution Width SD 38.5 fl (35.1-43.9)
[2022-07-03 16:44] LABS: ALB/GLOB Ratio 1.2 RATIO (0.9-2.4); AST(SGOT) 12 U/L (15-37); Alanine Aminotransfer ALT/SGPT 33 U/L (13-56); Alkaline Phosphatase 49 U/L (45-117); Anion Gap 5 (5-15); BUN 8 mg/dL (7-18); BUN/Creat Ratio 11.8 RATIO (10-20); CRP < 2.90 mg/L (0.0-3.0); Calcium,Total 8.4 mg/dL (8.5-10.1); Chloride 106 mmol/L (98-107); Creatinine, Serum 0.68 mg/dL (0.55-1.02); EST Glomerular Filtration Rate 108 mL/min (>60); Est Glom Filt Rate - Afr Amer 130 mL/min (>60); Globulin 3.4 g/dL (2.2-4.2); Glucose 96 mg/dL (74-106); LDH 169 U/L (84-246); Potassium 3.8 mmol/L (3.5-5.1); Protein, Total 7.4 g/dL (6.4-8.2); Sodium Level 138 mmol/L (136-145)
[2022-07-03 17:01] LABS: Erythrocyte Sedimentation Rate 2 mm/hr (0-30)
[2022-07-06 19:07] LABS: Anti-Centromere B Ab <0.2 AI (0.0-0.9); Anti-Chromatin <0.2 AI (0.0-0.9); Anti-Jo <0.2 AI (0.0-0.9); Anti-Scleroderma-70 AB <0.2 AI (0.0-0.9); RNP Ab 0.2 AI (0.0-0.9); SJOGREN'S Anti-SS-A test < 0.2 AI (0.0-0.9); SJOGREN'S Anti-SS-B test < 0.2 AI (0.0-0.9); Smith Ab <0.2 AI (0.0-0.9)
[2022-07-07 15:03] LABS: Anti-dsDNA Ab <1 IU/mL (0-9)
[2022-07-10 11:09] LABS: Alpha-1-Globulins 0.2 g/dL (0.0-0.4); Alpha-2-Globulins 0.7 g/dL (0.4-1.0); Cytoplasmic Ab (C-ANCA) <1:20 titer (Neg:<1:20); Gamma Globulin 0.9 g/dL (0.4-1.8); Immunoglobulin E 21 IU/mL (6-495); Immunoglobulin G 844 mg/dL (586-1602); Immunoglobulin M 100 mg/dL (26-217); PROEL- TOTAL PROTEIN 6.8 g/dL (6.0-8.5)
[2022-07-10 13:56] LABS: Immunoglobulin A 43 mg/dL (87-352); Perinuclear Ab (P-ANCA) <1:20 titer (Neg:<1:20)
== END | disposition home or self-care (01) ==
PROVIDERS: PCP Family Medicine; Referring Provider Nurse Practitioner Adult Health; Visit Provider Nurse Practitioner Adult Health
DX: R19.7 Diarrhea, unspecified (principal)
CPT/HCPCS: 36415; 80053; 82784; 82785; 83615; 84165; 85025; 85652; 86140; 86225; 86235; 86256; 86334

== ENCOUNTER → 2022-07-04 | Outpatient (CLI) | payer OTHER, SELFPAY ==
[2022-07-08 10:55] LABS: Pancreatic Elastase, Fecal > 500 (>200)
[2022-07-12 09:07] LABS: Calprotectin, Stool <16 ug/g (0-120); Fats, Neutral Normal (.); Fats, Total Normal (.)
== END | disposition home or self-care (01) ==
LOC: LABSPEC 09:41
PROVIDERS: PCP Family Medicine; Referring Provider Nurse Practitioner Adult Health; Visit Provider Nurse Practitioner Adult Health
DX: R19.7 Diarrhea, unspecified (principal); K58.9 Irritable bowel syndrome, unspecified
CPT/HCPCS: 82653; 82705; 83630; 83993; 87493; 87506

== ENCOUNTER → 2022-08-25 | Outpatient (CLI) | payer OTHER, SELFPAY ==
--- NOTE | 2022-08-25 07:42 | US_ITS ---
STUDY: ABDOMINAL ULTRASOUND - ELASTOGRAPHY REASON FOR VISIT: Female, 31 years old. Fatty infiltration of the liver. TECHNIQUE: Liver stiffness measurements were obtained on a Hybrent RS 85 ultrasound machine using a CA 1-7 probe following the SRU guidelines. 3 measurements were obtained using a 2-D-SWE method. The IQR/M was 15% suggesting a quality data set. TECHNICAL QUALITY: Adequate. COMPARISON: Comparison is made with prior study done earlier today. FINDINGS: Liver: Fatty infiltration of the liver. Median liver stiffness measured 9.2 kPa. US/Elastography Parenchyma/Organ IMPRESSION: Liver stiffness measures 9.2 kPa compatible with F2-F3 (Mild to moderate liver fibrosis) Metavir score. Electronically Signed: Jamel Gonzalez MD at 15:28 EST ,
--- NOTE | 2022-08-25 07:42 | US_ITS ---
STUDY: ABDOMINAL ULTRASOUND - RIGHT UPPER QUADRANT REASON FOR VISIT: Female, 31 years old Fatty liver, hepatomegaly TECHNIQUE: Ultrasound evaluation of the right upper quadrant was performed with real-time and static may-scale imaging. TECHNICAL QUALITY: Adequate. COMPARISON: Comparison is made with prior examination dated 09/01/2019. FINDINGS: Liver: The liver measures 16.1 cm. There is increased echogenicity consistent with fatty infiltration. The bile ducts are within normal limits. There is hepatic color flow. The direction of portal flow is hepatopetal. There is no demonstrated mass lesion. Gallbladder: The patient is status post cholecystectomy. Common Bile Duct (C.B.D.): The common bile duct measures 3.3 mm. Pancreas: There is nonvisualization of the pancreas due to overlying bowel gas. Right Kidney: Normal size of the right kidney. The right kidney measures 11.1 cm x 6.4 cm x 4.9 cm. Normal renal cortex. The right cortex measures 1.9 cm. There is no demonstrated renal mass or cyst. There is no right hydronephrosis. US/Abdomen Limited IMPRESSION: Fatty infiltration of the liver. Status post cholecystectomy. Electronically Signed: Jamel Gonzalez MD at 15:27 EST ,
== END | disposition home or self-care (01) ==
LOC: US 07:42
PROVIDERS: PCP Family Medicine; Visit Provider Nurse Practitioner Adult Health
DX: K76.0 Fatty (change of) liver, not elsewhere classified (principal); R16.0 Hepatomegaly, not elsewhere classified
CPT/HCPCS: 76705; 76981

== ENCOUNTER → 2022-09-10 | Outpatient (CLI) | payer OTHER, SELFPAY ==
[2022-09-10 11:09] LABS: Cholesterol 194 mg/dL (200); High Density Lipoprotein 44 mg/dL; Triglycerides 211 mg/dL; Very Low Density Lipoprotein 42 mg/dL (5-40)
== END | disposition home or self-care (01) ==
LOC: MTLAB 09:06 → LAB 09:27
PROVIDERS: PCP Family Medicine; Referring Provider Nurse Practitioner Adult Health; Visit Provider Nurse Practitioner Adult Health
DX: K76.0 Fatty (change of) liver, not elsewhere classified (principal)
CPT/HCPCS: 36415; 80061

== ENCOUNTER → 2023-01-26 | Outpatient (CLI) | payer OTHER, SELFPAY ==
[2023-01-26 18:10] LABS: Absolute Lymphocyte Count 1.86 X10^3/uL (0.83-4.51); Absolute Neutrophil Count 3.4 X10^3/uL (2.0-7.7); Basophil# 0.03 X10^3/uL; Basophil% 0.5 % (0-1); Eosinophil# 0.09 X10^3/uL; Eosinophils% 1.5 % (0-5); Hematocrit 37.9 % (37-47); Hemoglobin 12.4 g/dL (12.0-15.0); Lymphocyte # 1.86 X10^3/ul (0.83-4.51); Lymphocyte % 31.6 % (19-41); Mean Corp Hgb Conc 32.7 g/dL (32-36); Mean Corpuscular Hgb 28.7 pg (27.0-32.0); Mean Corpuscular Volume 87.7 fL (81-99); Mean Platelet Vol. 10.9 fl (6.2-12.0); Monocyte# 0.48 X10^3/uL; Monocyte% 8.2 % (0-10); NRBC Flagged by Analyzer 0 % (0-5); Neutrophil # 3.41 X10^3/uL (2.7-7.7); Platelet Count 294 K/mm3 (150-450); RBC Distribution Width CV 12.8 % (11.6-14.6); RBC Distribution Width SD 41.1 fl (35.1-43.9); Red Blood Count 4.32 M/mm3 (4.2-5.4); White Blood Count 5.9 K/mm3 (4.4-11.0)
[2023-01-26 18:11] LABS: Erythrocyte Sedimentation Rate 1 mm/hr (0-30)
[2023-01-26 18:13] LABS: ALB/GLOB Ratio 1.3 RATIO (0.9-2.4); AST(SGOT) 15 U/L (15-37); Alanine Aminotransfer ALT/SGPT 36 U/L (13-56); Albumin, Serum 4.3 g/dL (3.2-5.0); Alkaline Phosphatase 56 U/L (45-117); Anion Gap 5 (5-15); BUN 12 mg/dL (7-18); BUN/Creat Ratio 17.6 RATIO (10-20); CRP < 2.90 mg/L (0.0-3.0); Calcium,Total 8.9 mg/dL (8.5-10.1); Chloride 105 mmol/L (98-107); Creatinine, Serum 0.68 mg/dL (0.55-1.02); EST Glomerular Filtration Rate 107 mL/min (>60); Est Glom Filt Rate - Afr Amer 129 mL/min (>60); Globulin 3.3 g/dL (2.2-4.2); Glucose 86 mg/dL (74-106); Potassium 3.7 mmol/L (3.5-5.1); Protein, Total 7.6 g/dL (6.4-8.2); Sodium Level 135 mmol/L (136-145)
== END | disposition home or self-care (01) ==
LOC: MFPLAB 15:04
PROVIDERS: PCP Family Medicine; Visit Provider Family Medicine
DX: R74.8 Abnormal levels of other serum enzymes (principal); K21.9 Gastro-esophageal reflux disease without esophagitis
CPT/HCPCS: 36415; 80053; 85025; 85652; 86140

== ENCOUNTER → 2023-03-11 | Outpatient (CLI) | payer OTHER, SELFPAY ==
[2023-03-11 13:46] LABS: Estradiol 54.9 pg/mL; Follicle Stimulating Hormone 6.6 mIU/mL; Thyroid Stim Hormone (TSH) 0.84 uIU/mL (0.358-3.74)
[2023-03-16 09:09] LABS: HPV APTIMA, High Risk Negative (Negative)
== END | disposition home or self-care (01) ==
PROVIDERS: PCP Family Medicine; Referring Provider Obstetrics & Gynecology; Visit Provider Obstetrics & Gynecology
DX: N91.2 Amenorrhea, unspecified (principal)
CPT/HCPCS: 36415; 82670; 83001; 84443; 87624; 88175; G0145

== ENCOUNTER → 2023-04-15 | Outpatient (CLI) | payer OTHER, SELFPAY ==
--- NOTE | 2023-04-15 07:46 | US_ITS ---
STUDY: ABDOMINAL ULTRASOUND - RIGHT UPPER QUADRANT REASON FOR VISIT: Female, 32 years old NAFLD TECHNIQUE: Ultrasound evaluation of the right upper quadrant was performed with real-time and static may-scale imaging. TECHNICAL QUALITY: Adequate. COMPARISON: Comparison is made with prior study of August 25, 2022. FINDINGS: Liver: The liver is mildly enlarged and measures 18.6 cm. There is increased echogenicity consistent with fatty infiltration. The bile ducts are within normal limits. There is hepatic color flow. The direction of portal flow is hepatopetal. There is no demonstrated mass lesion. Gallbladder: The patient is status post cholecystectomy. Common Bile Duct (C.B.D.): The common bile duct measures 3.2 mm. Pancreas: Normal size of the head, body and tail of the pancreas. There is normal echogenicity of the pancreas. There is no demonstrated pancreatic mass or cyst. Right Kidney: Normal size of the right kidney. The right kidney measures 11.3 cm x 5.6 cm x 4.5 cm. Normal renal cortex. The right cortex measures 1.3 cm. There is no demonstrated renal mass or cyst. There is no right hydronephrosis. US/Abdomen Limited IMPRESSION: Hepatomegaly and fatty infiltration liver. Status post cholecystectomy. Electronically Signed: Jamel Gonzalez MD at 12:42 EDT ,
--- NOTE | 2023-04-15 07:46 | US_ITS ---
STUDY: ABDOMINAL ULTRASOUND - ELASTOGRAPHY REASON FOR VISIT: Female, 32 years old. NAFLD TECHNIQUE: Liver stiffness measurements were obtained on a Orthogem RS 85 ultrasound machine using a CA 1-7 probe following the SRU guidelines. 3 measurements were obtained using a 2-D-SWE method. TheIQR/M was 24% suggesting a quality data set. TECHNICAL QUALITY: Adequate. COMPARISON: Comparison is made with prior study dated August 25, 2022. FINDINGS: Liver: Fatty infiltration of the liver. Median liver stiffness measured 4.4 kPa. Abdomen: There is no demonstrated mass lesion. US/Elastography Parenchyma/Organ IMPRESSION: Liver stiffness measures 4.4 kPa compatible with FO (Normal) Metavir score. Electronically Signed: Jamel Gonzalez MD at 12:43 EDT ,
== END | disposition home or self-care (01) ==
LOC: US 07:45
PROVIDERS: PCP Family Medicine; Referring Provider Nurse Practitioner Adult Health; Visit Provider Nurse Practitioner Adult Health
DX: K76.0 Fatty (change of) liver, not elsewhere classified (principal)
CPT/HCPCS: 76705; 76981

== ENCOUNTER → 2023-08-30 | Outpatient (CLI) | payer OTHER, SELFPAY ==
[2023-08-30 15:56] LABS: ALB/GLOB Ratio 1.3 RATIO (0.9-2.4); AST(SGOT) 17 U/L (15-37); Alanine Aminotransfer ALT/SGPT 34 U/L (13-56); Albumin, Serum 4.3 g/dL (3.2-5.0); Alkaline Phosphatase 55 U/L (45-117); Anion Gap 5 (5-15); BUN 8 mg/dL (7-18); BUN/Creat Ratio 9.9 RATIO (10-20); Calcium,Total 8.7 mg/dL (8.5-10.1); Chloride 106 mmol/L (98-107); Cholesterol 167 mg/dL (200); Creatinine, Serum 0.81 mg/dL (0.55-1.02); EST Glomerular Filtration Rate 87 mL/min (>60); Est Glom Filt Rate - Afr Amer 106 mL/min (>60); Globulin 3.3 g/dL (2.2-4.2); Glucose 95 mg/dL (74-106); High Density Lipoprotein 46 mg/dL; Protein, Total 7.6 g/dL (6.4-8.2); Sodium Level 138 mmol/L (136-145); Triglycerides 186 mg/dL; Very Low Density Lipoprotein 37 mg/dL (5-40)
== END | disposition home or self-care (01) ==
PROVIDERS: Nurse Practitioner Family; PCP Family Medicine; Referring Provider Internal Medicine Gastroenterology; Visit Provider Internal Medicine Gastroenterology
DX: K90.41 Non-celiac gluten sensitivity (principal); K76.0 Fatty (change of) liver, not elsewhere classified; Z13.1 Encounter for screening for diabetes mellitus; Z13.220 Encounter for screening for lipoid disorders
CPT/HCPCS: 36415; 80053; 80061

== ENCOUNTER 2023-09-15 08:59 | Day surgery (SDC) | payer OTHER, SELFPAY ==
[2023-09-15 09:24] VITALS: BP 112/77; PULSE 75; RESP 16; TEMP 36.5; O2SAT 100; BMI 27.0
[2023-09-15 09:27] LABS: Internal QC Validated? YES +Cl - CLEAR BKGD
[2023-09-15] MEDS: Lactated Ringers 1,000 ML 15 ML IV (09:27)
[2023-09-15 09:28] LABS: Pregnancy, Urine Negative Negative; Record Kit Lot#,Urine Preg HCG0000667200
--- NOTE | 2023-09-15 10:00 | IMM_PTH ---
PATIENT: WILLIAM HARRY LOC: EN U#:[id number] AGE/SX: 32/F ROOM: RE09/15/[address]: Dr. Samuel Nunez DO : 1990 BED: DIS: 09/15/2023 SPEC #: [id number] RECD: 09/15/23 14:27 STATUS: RAZ MICHAEL #: [id number] ELYSE: 09/15/23 10:[address]: Samuel Nunez DEPT: IMMUNOHISTOCHEMISTRY RECD BY: Idalia Rouse ENTERED: 09/15/23 14:27 SP TYPE: IMMUNO OTHR DR: Dr. Jadon Lyn MD Tissues: B - Stomach, NOS Procedures: H Pylori (initial) PHYSICIAN & INSTITUTION [place] [address] SPECIMEN INFORMATION: Tissue Source: B - Gastric antrum Clinical Info: Bloating, nonalcoholic fatty liver disease, eosinophilic esophagitis, irritable bowel syndrome Specimen Number: [id number] CPT code: 94362 METHODOLOGY: Deparaffinized sections of prefer/formalin-fixed tissue or PAP/DQ stained slides are incubated with monoclonal/polyclonal antibodies/oligonucleotide probes. Localization is made via biotin free immunoperoxidase method. Appropriate controls are performed and reacted as expected. Results on target cell population are indicated in the following table: RESULTS: ANTIBODY / CLONE RESULT Block B H Pylori (polyclonal) negative These tests were developed and their performance characteristics determined by [facility]. They may not have been cleared or approved by the U.S. Food and Drug Administration. The FDA has determined that such clearance or approval is not necessary. The above immunohistochemical/dualISH markers are ordered and reviewed by the Pathologist. INTERPRETATION: B. Gastric antrum, biopsy: Negative for Helicobacter pylori organisms. SONU:yusuf 09/16/2023
--- NOTE | 2023-09-15 10:00 | EGD_PTH ---
PATIENT: WILLIAM HARRY LOC: EN U#:[id number] AGE/SX: 32/F ROOM: RE09/15/[address]: Dr. Samuel Nunez DO : 1990 BED: DIS: 09/15/2023 SPEC #: [id number] RECD: 09/15/23 12:00 STATUS: RAZ MICHAEL #: [id number] ELYSE: 09/15/23 10:[address]: Samuel Nunez DEPT: SURGICAL PATHOLOGY RECD BY: Lise Smiley ENTERED: 09/15/23 12:01 SP TYPE: EGD BIOPSY KATALINA DR: Dr. Jadon Lyn MD Tissues: A - Gastric mucous membrane B - Gastric mucous membrane C - Esophageal mucous membrane Procedures: Special Stain Group II Surgery Specimen Level IV Alcian Blue/PAS (control) HEADER OPERATION: EGD with biopsies PRE-OP DIAGNOSIS: Bloating, NAFLD, eosinophilic esophagitis, IBS TISSUE SUBMITTED: A - Gastric polyp biopsy, B - Gastric antrum biopsy, C - Random esophagus biopsy MICROSCOPIC DIAGNOSIS A. Gastric polyp, biopsy: Fundic gland polyp. B. Gastric antrum, biopsy: Mild gastritis. See microscopic description and comment. C. Esophagus, random biopsy: Fragments of benign squamous mucosa. A minute fragment of gastric mucosa, negative for intestinal metaplasia (goblet cell metaplasia). See comment. SJ:rg 09/16/2023 COMMENT B. The results of immunohistochemistry for Helicobacter pylori will be reported separately ([id number]). C. Alcian blue/PAS stain with matched control is used in the evaluation of the specimen. MICROSCOPIC DESCRIPTION Slides are reviewed. B. The specimen shows fragments of gastric mucosa with chronic inflammatory cell infiltrates in the lamina propria consisting of lymphocytes and plasma cells, consistent with mild chronic gastritis. GROSS DESCRIPTION A - Received in fixative is one container labeled with the patient's name and designated gastric polyp biopsy. The specimen consists of two irregular fragments of light sam soft tissue that in aggregate measure 0.6 x 0.5 x 0.1 cm. The specimen is totally submitted in one cassette. B - Received in fixative is one container labeled with the patient's name and designated gastric antrum biopsy. The specimen consists of multiple irregular fragments of light sam soft tissue that in aggregate measure 0.5 x 0.5 x 0.1 cm. The specimen is totally submitted in one cassette. C - Received in fixative is one container labeled with the patient's name and designated random esophagus biopsy. The specimen consists of multiple irregular fragments of light sam soft tissue that in aggregate measure 0.8 x 0.2 x 0.1 cm. The specimen is totally submitted in one cassette. / AM:yusuf 09/15/2023 TC:3 CPT: 73546 x3, 46900
--- NOTE | 2023-09-15 10:36 | HP.PCM_ITS ---
History and Physical Date of Admission: 09/15/23 WILLIAM HARRY, is a 32 F who presents to the office today for 6 month f/u IBS, EOE, NAFLD. Previously she always had diarrhea predominant IBS. Now she has been dealing with constipation, having a BM q3-4 days. Just started metamucil powder, too soon to say if helpful. Her main concern at this time is abd bloating x 6 mos, started before she developed constipation. Irritable bowel syndrome with diarrhea -- no longer needs dicyclomine 10 mg BID, previously took it to manage diarrhea and spasms. Didn't tolerate cholestyramine. Lab panel not suggestive of IBD. She avoids gluten for possible non-celiac gluten sensitivity, although now wondering if avoiding gluten makes a difference. Eosinophilic esophagitis --diagnosed on EGD 06/2022. On PPI. Added Dupixent qwk 01/2023. Art Glass Setter recommended she decrease dairy intake by 80%; she has done so but no change in symptoms. GERD -- Continue PPI for now, may be able to d/c because taking Dupixent. No heartburn. No dysphagia. No nausea, vomiting. NAFLD -- hx elevated liver enzymes--she recalls they were elevated when she had mono and was , normal since then. Hx hepatosplenomegaly, now liver is normal size on US. 08/2022 Liver stiffness 9.2 kpa. Father has fatty liver. Treating with vitamin E 800 IU daily and rx ursodiol 250 mg bid. Took ursodiol x 6 mos, but no longer covered by insurance. Long hx of GI issues. She had walled-off appendicitis requiring multiple surgeries age 20; was in the ICU at that time. Dr Leija did her surgeries. She was diagnosed with IBS after that, but symptoms improved spontaneously. Had cholecystectomy 04/2020. Her recent GI symptoms flared up after the of her son 3 yrs ago, then worsened Spring 2021. She had EGD and colonoscopy on 06/12/[address] Leija; diagnosed with eosinophilic esophagitis, internal hemorrhoids. Dr Leija felt her recent rectal bleeding was due to the internal hemorrhoids. Possible bile reflux on EGD. Patent functional end to end colo-colonic anastamosis. ROS Const Constitutional: Positive for fatigue and weight change ENT ENT: No difficulty swallowing Gastro GI: Positive for abdominal pain, bloating, change in bowel habits, constipation and excessive flatus; No belching, change in stool character, coffee ground emesis, cramping, diarrhea, heartburn, difficulty swallowing, feeling full early, incontinent of stools, Vomiting blood/hematemesis, Blood in stool, loose stools, Black,tarry stools, nausea/dyspepsia, pain with swallowing, vomiting or other Musc Musculoskeletal: No joint pain Skin Skin: No yellowing of the eye or itchy eyes Psych Psychiatric: No anxiety and No depression Endo Endocrine: Positive for fatigue and weight change Aller/Imm Allergy/Immunologic: No itchy eyes Prakash/Lymp Hematologic/Lymphatic: No easy bleeding or easy bruising Exam Const General: cooperative and comfortable Orientation: alert, awake and oriented x3 Quality Reporting Tobacco Screening ([facility] 138) Smoking Status: Never smoker Assessment and Plan Assessment and Plan (1) Bloating: Status: Chronic Plan: Bothersome x 6 mos, started before IBS switched from diarrhea to constipation. ?SIBO. Try course of doxycycline, let me know if that helps. (2) NAFLD (nonalcoholic fatty liver disease): Status: Chronic Plan: Continue vitamin E. She took ursodiol x 6 mos. Update elastography, will contact her with result. (3) Eosinophilic esophagitis: Status: Chronic Plan: Continue Dupixent qwk. (4) IBS (irritable bowel syndrome): Status: Chronic Plan: Previously bothered by diarrhea, now having constipation. If metamucil doesn't help, can consider Miralax or Fiber Choice tablets or kiwi supplement pills or probiotic. F/u 6 mos Orders: I have examined the patient and the H&P has been reviewed. There are no clinical changes since date of exam.
[2023-09-15 10:57] VITALS: BP 112/77; BP 116/76; PULSE 90; RESP 16; TEMP 36.6; O2SAT 98
--- NOTE | 2023-09-15 11:01 | OP.EGD_ITS ---
Patient Name: Prosper Rea Procedure Date: 09/15/2023 10:43 AM Date of : 1990 Age: 32 Procedure: Upper GI endoscopy Indications: Epigastric abdominal pain, Dysphagia Providers: Samuel Nunez DO Referring MD: Jadon Lyn Medicines: Monitored Anesthesia Care Patient Profile: This is a 32 year old female. Refer to note in patient chart for documentation of history and physical. Patient has symptoms of chronic epigastric abdominal pain and chronic dysphagia. Complications: No immediate complications. Procedure: Pre-Anesthesia Assessment: - Prior to the procedure, a History and Physical was performed, and patient medications and allergies were reviewed. The patient is competent. The risks and benefits of the procedure and the sedation options and risks were discussed with the patient. All questions were answered and informed consent was obtained. Patient identification and proposed procedure were verified by the physician in the pre-procedure area. Mental Status Examination: alert and oriented. Airway Examination: normal oropharyngeal airway and neck mobility. Respiratory Examination: clear to auscultation. CV Examination: normal. Prophylactic Antibiotics: The patient requires prophylactic antibiotics. Prior Anticoagulants: The patient has taken no anticoagulant or antiplatelet agents. ASA Grade Assessment: II - A patient with mild systemic disease. After reviewing the risks and benefits, the patient was deemed in satisfactory condition to undergo the procedure. The anesthesia plan was to use monitored anesthesia care (MAC). Immediately prior to administration of medications, the patient was re-assessed for adequacy to receive sedatives. The heart rate, respiratory rate, oxygen saturations, blood pressure, adequacy of pulmonary ventilation, and response to care were monitored throughout the procedure. The physical status of the patient was re-assessed after the procedure. After obtaining informed consent, the endoscope was passed under direct vision. Throughout the procedure, the patient's blood pressure, pulse, and oxygen saturations were monitored continuously. The Endoscope was introduced through the mouth, and advanced to the second part of duodenum. The upper GI endoscopy was accomplished without difficulty. The patient tolerated the procedure well. Scope In: 10:44:48 AM Scope Out: 10:50:48 AM Total Procedure Duration Time 0 hours 6 minutes 0 seconds Findings: No endoscopic abnormality was evident in the esophagus to explain the patient's complaint of dysphagia. Biopsies were obtained from the proximal and distal esophagus with cold forceps for histology of suspected eosinophilic esophagitis. Patchy mildly erythematous mucosa without bleeding was found in the stomach. Biopsies were taken with a cold forceps for histology. Verification of patient identification for the specimen was done. Estimated blood loss was minimal. Biopsies were taken with a cold forceps for Helicobacter pylori testing. Verification of patient identification for the specimen was done. Estimated blood loss was minimal. No gross lesions were noted in the first portion of the duodenum. Impression: - No endoscopic esophageal abnormality to explain patient's dysphagia. - Erythematous mucosa in the stomach. Biopsied. - No gross lesions in the first portion of the duodenum. - Biopsies were taken with a cold forceps for evaluation of eosinophilic esophagitis. Recommendation: - Discharge patient to home. - Resume previous diet. - Continue present medications. - Await pathology results. Procedure Code(s): --- Professional --- 71770, Esophagogastroduodenoscopy, flexible, transoral; with biopsy, single or multiple CPT copyright 2021 [employer]. All rights reserved. The codes documented in this report are preliminary and upon sub plant manager review may be revised to meet current compliance requirements. Samuel Nunez DO 09/15/2023 11:00:44 AM This report has been signed electronically. Number of Addenda: 0 Note Initiated On: 09/15/2023 10:43 AM
--- NOTE | 2023-09-15 11:01 | OP.CCLET_ITS ---
09/15/2023 Jadon Lyn [address] [place] [address] Re : Upper GI endoscopy procedure for [facility] Dear Dr. Lyn This procedure was performed on Friday, September 15, 2023. My impressions and recommendations are as follows: Impressions : - No endoscopic esophageal abnormality to explain patient's dysphagia. - Erythematous mucosa in the stomach. Biopsied. - No gross lesions in the first portion of the duodenum. - Biopsies were taken with a cold forceps for evaluation of eosinophilic esophagitis. Recommendations : - Discharge patient to home. - Resume previous diet. - Continue present medications. - Await pathology results. My findings are described in the full procedure note, which is enclosed. If I can be of further assistance, please feel free to contact me at . Sincerely, Samuel Nunez, 09/15/2023 11:00:44 AM This report has been signed electronically.
[2023-09-15 11:05] VITALS: BP 112/77; BP 117/79; PULSE 95; RESP 16; O2SAT 98
[2023-09-15 11:10] VITALS: BP 112/77; BP 115/75; PULSE 94; RESP 16; O2SAT 99
[2023-09-15 11:20] VITALS: BP 112/77; BP 116/80; PULSE 89; RESP 16; TEMP 36.1; O2SAT 100
[2023-09-15 11:38] VITALS: BP 112/77
== END 2023-09-15 11:46 | disposition home or self-care (01) ==
LOC: EN 08:59 → AC 09:01
PROVIDERS: Anesthesiology; PCP Family Medicine; Referring Provider Family Medicine; Visit Provider Internal Medicine Gastroenterology
PROC: 0DJ08ZZ Inspection of Upper Intestinal Tract, Via Natural or Artificial Opening Endoscopic (ICD-10-PCS; CPT 43235; principal; 2023-09-15 09:55)
DX: K29.70 Gastritis, unspecified, without bleeding (principal); Z87.19 Personal history of other diseases of the digestive system; K20.0 Eosinophilic esophagitis; K58.1 Irritable bowel syndrome with constipation; K76.0 Fatty (change of) liver, not elsewhere classified; K31.7 Polyp of stomach and duodenum; R73.03 Prediabetes; Z79.84 Long term (current) use of oral hypoglycemic drugs; K21.9 Gastro-esophageal reflux disease without esophagitis; Z79.899 Other long term (current) drug therapy
CPT/HCPCS: 43239; 81025; 88305; 88313; 88342; J7120; J2405

== ENCOUNTER → 2023-11-08 | Outpatient (CLI) | payer OTHER, SELFPAY ==
--- OUTSIDE RECORDS SUMMARY | 2023-11-08 11:55 | XMS RPT_ITS | CCD ---
Author Name Unknown Address [address] [place] [address] Organization [facility] Care Team Providers Care Bacteriologist Food Name Role Phone CHRISSY, DR LAURIE France Attending Unavaila ble CHRISSY, DR LAURIE France Primary Care Unavaila ble CHRISSY, DR LAURIE France Admitting Unavaila ble CHRISSY, DR LAURIE France Attending Unavaila ble CHRISSY, DR LAURIE France Primary Care Unavaila ble CHRISSY, DR LAURIE France Admitting Unavaila ble Catherine Suarez MD Primary Care Provider CATHERINE SUAREZ Primary Care Unavailable Allergies Allergy Classification Reported Allergen(s) Allergy Type Date of Onset Reaction(s) Facility (2 sources) Morphine; Translations: [MORPHINE] Drug Allergy 04-07-2011 [facility] Work Phone: Medications Current Medications Medication Drug Class(es) Dates Sig (Normalized) Sig (Original) amoxicillin 875 mg / clavulanate 125 mg oral tablet (2 sources) Penicillin-class Antibacterial Start: 02-15-2023 End: 02-22-2023 take 1 tablet by mouth twice daily at mealtime amoxicillin-clav ulanic acid (AUGMENTIN) 875-125 mg per tablet Indications: Bacterial sinusitis Take 1 tablet by mouth twice daily with meals for 7 days. 14 tablet 0 02/15/2023 02/22/2023 Active Completed/Discontinued Medications Medication Drug Class(es) Dates Sig (Normalized) Sig (Original) dupilumab (DUPIXENT SYRINGE) 100 mg/0.67 mL syringe (1 source) dupilumab (DUPIX ENT SYRINGE) 100 mg/0.67 mL syringe Inject 100 mg subcutaneously every 2 weeks. 0 Active Problems Active Problems Problem Classification Problem Date Documented Da te Episodic/Chronic Other gastrointestinal disorders (1 source) Irritable bowel syndrome with diarrhea; Translations: [Irritable bowel syndrome with diarrhea] Onset: 07-13-2018 07-13-2018 Chronic Other upper respiratory disease (1 source) Allergic rhinitis; Translations: [Allergic rhinitis, unspecified] 10-06-2021 Chronic Other upper respiratory infections (1 source) Bacterial sinusitis; Translations: [Chronic sinusitis, unspecified] Chronic Past or Other Problems Problem Classification Problem Date Documented Da te Episodic/Chronic Deficiency and other anemia (1 source) Iron deficiency anemia; Translations: [Iron deficiency anemia, unspecified] Onset: 09-14-2011 09-14-2011 Episodic Other injuries and conditions due to external causes (1 source) Motion sickness; Translations: [Motion sickness, initial encounter] Onset: 07-13-2018 07-13-2018 Episodic Results Test Name Value Interpretation Reference Range Facil ity Vital Signs Date Time Vital Sign Value Performing Clinician Naren valerio 02-15-2023 09:57-0400 Body temperature 97.59 [degF] Madison Lang PA-C Work Phone: [facility] 02-15-2023 09:57-0400 Body weight 77.11 kg Madison Lang PA-C Work Phone: [facility] 02-15-2023 09:57-0400 Diastolic blood pressure 67 mm[Hg] Madison Lang PA-C Work Phone: [facility] 02-15-2023 09:57-0400 Heart rate 94 /min Madison Lang PA-C Work Phone: [facility] 02-15-2023 09:57-0400 SaO2% (BldA) [Mass fraction] 100 % Madison Lang PA-C Work Phone: [facility] 02-15-2023 09:57-0400 Systolic blood pressure 115 mm[Hg] Madison Lang PA-C Work Phone: [facility] Encounters Encounter Date Encounter Type Care Provider Facility Start: 02-15-2023 End: 02-15-2023 ambulatory CATHERINE SUAREZ Facility:[facility] Start: 02-15-2023 End: 02-15-2023 Patient encounter procedure Madison L Slabaugh PA-C Work Phone: [facility] Plan of Treatment Date Care Activity Detail Author Start: 08-31-2023 PAP TESTING PAP TESTING [facility] Start: 10-11-2022 DEPRESSION ASSESSMENT DEPRESSION ASS ESSMENT [facility] Start: 12-26-2021 HPV TESTING HPV TESTING [facility] Start: 10-24-2021 COVID-19 VACCINE (4 - Booster for Pfizer series) COVID-19 VACCINE (4 - Booster for Pfizer series) [facility] Start: 12-26-2010 Urine microalbumin profile DTAP,TDAP ,TD (1 - Tdap) [facility] Start: 12-26-2009 HIV SCREENING HIV SCREENING [facility] Start: 1991 HEPATITIS B (1 of 3 - 3-dose series) HEPATITIS B (1 of 3 - 3-dose series) [facility] Immunizations Immunization Date Immunization Notes Care Provider Gus ayala 08-29-2021 COVID-19 original vaccine, age 12+ yr, monovalent (PFIZER-[employer] - PURPLE TOP) Madison Slabaugh PA-C Work Phone: [facility] Work Phone: 07-13-2018 influenza, injectabl e, quadrivalent, contains preservative Madison Slabaugh PA-C Work Phone: [facility] 08-22-2017 influenza, seasonal, injectable Madison Slabaugh PA-C Work Phone: [facility] Work Phone: 08-10-2016 influenza, seasonal, injectable Madison Slabaugh PA-C Work Phone: [facility] 07-30-2015 influenza, seasonal, injectable Madison Slabaugh PA-C Work Phone: [facility] 08-14-2014 influenza, seasonal, injectable Madison Slabaugh PA-C Work Phone: [facility] 08-16-2013 influenza virus vaccine, unspecified formulation Madison Slabaugh PA-C Work Phone: [facility] Work Phone: 07-25-2012 influenza virus vaccine, unspecified formulation Madison Slabaugh PA-C Work Phone: [facility] Payers Date Payer Category Payer Unknown [id number] 2019 Unknown MMO MMO [employer] PPO [id number] 2019-Present [phone] [address] [place] [address] PPO [id number] 1991 Unknown [id number] 1991 Unknown [id number] Social History Date Type Detail Facility Start: 09-14-2011 Tobacco smoking stat us [facility] Never smoked tobacco [facility] Work Phone: Start: 09-14-2011 Tobacco use and exposure Smokeless tobacco non-user [facility] Work Phone: Start: 02-15-2023 Alcohol intake Current non-dr slat pickler of alcohol (finding) [facility] Start: 1990 Sex Assigned At Not on file [facility] Progress note 02-15-2023 Note Date & Type Note Facility 02-15-2023 Note HNO ID: [id number] Author: Madison Lang PA-C Service: ? Author Type: Physician Area Loss Prevention Manager Type: Progress Notes Filed: 02/15/2023 10:25 AM Note Text: Surgical mask, face shield, N95, and gloves worn for all in-person care. 02/15/2023 Patient presents with: Viral Syndrome: Had a double ear infection and for two wks having green phlegm doing julisa pot and Flonase with no relief. SUBJECTIVE: This is a 32 year old that is here today for concern for URI symptoms x 2 weeks. Complains of sinus congestion/pressure/drainage x 2 weeks. Feels that her drainage is thick and green. Complains of pressure and aching in the cheeks. Flonase, lindsay, and night time decongestants are not helping. Denies fever, chills, sweats, or fatigue. Patient denies wheezing, shortness of breath, increased WOB, or chest pain. COVID exposure: none Influenza exposure: none RSV exposure: none Covid Immunization Dates Overdue - COVID-19 VACCINE (4 - Booster for Pfizer series) Overdue since 10/24/2021 08/29/2021 Imm Admin: COVID-19 vaccine, age 12+ yr ([employer] - PURPLE TOP) 01/30/2021 Outside Immunization: COVID-19, mRNA, LNP-S, PF, 30 mcg/0.3 mL dose 01/07/2021 Outside Immunization: COVID-19, mRNA, LNP-S, PF, 30 mcg/0.3 mL dose COVID vaccine: yes History of COVID: - Influenza vaccine: - Asthma: none Pneumonia: none Tobacco: none Pain on scale of 0-10 with 0 being no pain and 10 being greatest pain: - Nothing makes the symptoms better. Nothing makes them worse. Self-treatment:. Flonase, Amox 500mg BID x 10 days about 4 -5weeks ago for sinus and bilateral AOM- completed it about 3 weeks ago but she feels it never truly treated her fully. The severity is mild and the symptoms are not improving. The patient did not have a similar problem in the last 3 months. The patient did not take any antibiotics in the last 3 months. Barriers to learning: none. Reviewed meds, OTCs, herbals or supplements. Reviewed allergies, medications, social history, and past medical history. PAST MEDICAL HISTORY Diagnosis Date Allergic rhinitis Dr. Vick Angioedema of lips Dr. Vick (tongue and lip swelling) Cellulitis and abscess of unspecified site from ruptured appendix (March 2011--resolved) Urticaria Dr. Vick ALLERGIES Morphine MEDICATIONS Current Outpatient Medications Medication Sig dupilumab (DUPIXENT SYRINGE) 100 mg/0.67 mL syringe Inject 100 mg subcutaneously every 2 weeks. No current facility-administered medications for this visit. Medications and allergies reviewed by this provider. SOCIAL HISTORY Social History Tobacco Use Smoking status: Never Smokeless tobacco: Never Substance Use Topics Alcohol use: No Drug use: No REVIEW OF SYSTEMS Review of Systems ROS: constitutional: , HENT- ear ache, sinus symptoms, Eyes- neg, heart-neg, respiratory-Cough, GI-neg, -neg, skin-neg, Allergy- neg, lymph-neg, neuro-neg, psych-neg- All systems neg except as noted above in HPI. OBJECTIVE: BP 115/67 Pulse 94 Temp 36.4 ?C (97.6 ?F) Wt 77.1 kg (170 lb) LMP 02/03/2021 SpO2 100% BMI 27.44 kg/m? . Vital signs reviewed by this provider. Physical Exam Vitals reviewed. Constitutional: General: She is not in acute distress. Appearance: Normal appearance. She is well-developed and normal weight. She is not ill-appearing, toxic-appearing or diaphoretic. HENT: Head: Normocephalic and atraumatic. No right periorbital erythema or left periorbital erythema. Salivary Glands: Right salivary gland is not diffusely enlarged or tender. Left salivary gland is not diffusely enlarged or tender. Right Ear: Tympanic membrane, ear canal and external ear normal. Left Ear: Tympanic membrane, ear canal and external ear normal. Nose: Congestion and rhinorrhea present. Rhinorrhea is purulent. Right Sinus: Maxillary sinus tenderness present. No frontal sinus tenderness. Left Sinus: Maxillary sinus tenderness present. No frontal sinus tenderness. Mouth/Throat: Lips: No lesions. Mouth: Mucous membranes are moist. No oral lesions. Dentition: No gum lesions. Tongue: No lesions. Tongue does not deviate from midline. Palate: No mass and lesions. Pharynx: Oropharynx is clear. No pharyngeal swelling, oropharyngeal exudate, posterior oropharyngeal erythema or uvula swelling. Tonsils: No tonsillar exudate or tonsillar abscesses. Eyes: General: Lids are normal. No scleral icterus. Right eye: No discharge. Left eye: No discharge. Extraocular Movements: Extraocular movements intact. Conjunctiva/sclera: Conjunctivae normal. Pupils: Pupils are equal, round, and reactive to light. Cardiovascular: Rate and Rhythm: Normal rate and regular rhythm. Heart sounds: Normal heart sounds. Pulmonary: Effort: Pulmonary effort is normal. Breath sounds: Normal breath sounds and air entry. Musculoskeletal: Cervical back: Full passive range of motion without pain. (more content not included)... [facility] Instructions 02-15-2023 Patient Instructions Note Date & Type Note Facility 02-15-2023 Instructions Madison Lang PA-C - 02/15/2023 10:16 AM EDT ASSESSMENT/PLAN: 1. Bacterial sinusitis - AMOXICILLIN 875 MG-POTASSIUM CLAVULANATE 125 MG TABLET Encourage fluids, rest. OTC Decongestants OTC antihistamines and nasal sprays Tylenol and Motrin for pain and fever Saline Nasil spray, Neti Pot, vaporizer, Vicks. Try Cepocol lozenges or Chloraseptic throat spray. Warm salt water gargles. Cough and deep breath- 10x/hr while awake. May use OTC Mucinex D as directed for cough Call PCP if sx worsen or no better. If symptoms worsen, or new symptoms develop go to ER. If you have worsening of breathing or breathing changes- go to ER. If you have persistent fever unrelieved by Tylenol/Motrin- go to the ER. Follow up as needed. Barriers to learning: none. The patient verbalizes understanding and is in agreement with plan of care. - Red flags for in person care discussed - All questions answered Madison Lang PA-C documented in this encounter [facility] History of Present illness Narrative 02-15-2023 Madison Lang PA-C - 02/15/2023 10:01 AM EDT Note Date & Type Note Facility 02-15-2023 History of Presen t illness Narrative Images from the original note were not included. Surgical mask, face shield, N95, and gloves worn for all in-person care. 02/15/2023 Patient presents with: Viral Syndrome: Had a double ear infection and for two wks having green phlegm doing julisa pot and Flonase with no relief. SUBJECTIVE: This is a 32 year old that is here today for concern for URI symptoms x 2 weeks. Complains of sinus congestion/pressure/drainage x 2 weeks. Feels that her drainage is thick and green. Complains of pressure and aching in the cheeks. Flonase, lindsay, and night time decongestants are not helping. Denies fever, chills, sweats, or fatigue. Patient denies wheezing, shortness of breath, increased WOB, or chest pain. COVID exposure: none Influenza exposure: none RSV exposure: none Covid Immunization Dates Overdue - COVID-19 VACCINE (4 - Booster for Pfizer series) Overdue since 10/24/2021 08/29/2021 Imm Admin: COVID-19 vaccine, age 12+ yr ([employer] - PURPLE TOP) 01/30/2021 Outside Immunization: COVID-19, mRNA, LNP-S, PF, 30 mcg/0.3 mL dose 01/07/2021 Outside Immunization: COVID-19, mRNA, LNP-S, PF, 30 mcg/0.3 mL dose COVID vaccine: yes History of COVID: - Influenza vaccine: - Asthma: none Pneumonia: none Tobacco: none Pain on scale of 0-10 with 0 being no pain and 10 being greatest pain: - Nothing makes the symptoms better. Nothing makes them worse. Self-treatment:. Flonase, Amox 500mg BID x 10 days about 4 -5weeks ago for sinus and bilateral AOM- completed it about 3 weeks ago but she feels it never truly treated her fully. The severity is mild and the symptoms are not improving. The patient did not have a similar problem in the last 3 months. The patient did not take any antibiotics in the last 3 months. Barriers to learning: none. Reviewed meds, OTCs, herbals or supplements. Reviewed allergies, medications, social history, and past medical history. PAST MEDICAL HISTORY Diagnosis Date Allergic rhinitis Dr. Vick Angioedema of lips Dr. Vick (tongue and lip swelling) Cellulitis and abscess of unspecified site from ruptured appendix (March 2011--resolved) Urticaria Dr. Vick ALLERGIES Morphine MEDICATIONS Current Outpatient Medications Medication Sig dupilumab (DUPIXENT SYRINGE) 100 mg/0.67 mL syringe Inject 100 mg subcutaneously every 2 weeks. No current facility-administered medications for this visit. Medications and allergies reviewed by this provider. SOCIAL HISTORY Social History Tobacco Use Smoking status: Never Smokeless tobacco: Never Substance Use Topics Alcohol use: No Drug use: No REVIEW OF SYSTEMS Review of Systems ROS: constitutional: , HENT- ear ache, sinus symptoms, Eyes- neg, heart-neg, respiratory-Cough, GI-neg, -neg, skin-neg, Allergy- neg, lymph-neg, neuro-neg, psych-neg- All systems neg except as noted above in HPI. OBJECTIVE: BP 115/67 Pulse 94 Temp 36.4 C (97.6 F) Wt 77.1 kg (170 lb) LMP 02/03/2021 SpO2 100% BMI 27.44 kg/m . Vital signs reviewed by this provider. Physical Exam Vitals reviewed. Constitutional: General: She is not in acute distress. Appearance: Normal appearance. She is well-developed and normal weight. She is not ill-appearing, toxic-appearing or diaphoretic. HENT: Head: Normocephalic and atraumatic. No right periorbital erythema or left periorbital erythema. Salivary Glands: Right salivary gland is not diffusely enlarged or tender. Left salivary gland is not diffusely enlarged or tender. Right Ear: Tympanic membrane, ear canal and external ear normal. Left Ear: Tympanic membrane, ear canal and external ear normal. Nose: Congestion and rhinorrhea present. Rhinorrhea is purulent. Right Sinus: Maxillary sinus tenderness present. No frontal sinus tenderness. Left Sinus: Maxillary sinus tenderness present. No frontal sinus tenderness. Mouth/Throat: Lips: No lesions. Mouth: Mucous membranes are moist. No oral lesions. Dentition: No gum lesions. Tongue: No lesions. Tongue does not deviate from midline. Palate: No mass and lesions. Pharynx: Oropharynx is clear. No pharyngeal swelling, oropharyngeal exudate, posterior oropharyngeal erythema or uvula swelling. Tonsils: No tonsillar exudate or tonsillar abscesses. Eyes: General: Lids are normal. No scleral icterus. Right eye: No discharge. Left eye: No discharge. Extraocular Movements: Extraocular movements intact. Conjunctiva/sclera: Conjunctivae normal. Pupils: Pupils are equal, round, and reactive to light. Cardiovascular: Rate and Rhythm: Normal rate and regular rhythm. Heart sounds: Normal heart sounds. Pulmonary: Effort: Pulmonary effort is normal. Breath sounds: Normal breath sounds and air entry. Musculoskeletal: Cervical back: Full passive range of motion without pain. No spinous process tenderness or muscular tenderness. Lymphadenopathy: Head: Right side of head: No submental, submandibular, tonsillar, preauricular or posterior auricular adenopathy. Left side of head: No submental, submandibular, tonsillar, preauricular or posterior auricular adenopathy. Cervical: No cervical adenopathy. Skin: General: Skin is warm. Capillary Refill: Capillary refill takes less than 2 seconds. Findings: No rash. Neurological: General: No focal deficit present. Mental Status: She is alert and oriented to person, place, and time. Cranial Nerves: No facial asymmetry. Psychiatric: Attention and Perception: Attention normal. Behavior: Behavior is cooperative. ASSESSMENT/PLAN: 1. Bacterial sinusitis - ICD9: 473.9, 041.9, ICD10: J32.9, B96.89 - AMOXICILLIN 875 MG-POTASSIUM CLAVULANATE 125 MG TABLET Encourage fluids, rest. OTC Decongestants OTC antihistamines Tylenol and Motrin for pain and fever Saline Nasil spray, Neti Pot, vaporizer, Vicks. Try Cepocol lozenges or Chloraseptic throat spray. Warm salt water gargles. Cough and deep breath- 10x/hr while awake. May use OTC Mucinex DM as directed for cough Call PCP if sx worsen or no better. If symptoms worsen, or new symptoms develop go to ER. If you have worsening of breathing or breathing changes- go to ER. If you have persistent fever unrelieved by Tylenol/Motrin- go to the ER. Follow up as needed. Barriers to learning: none. The patient verbalizes understanding and is in agreement with plan of care. - Red flags for in person care discussed - All questions answered Madison Lang PA-C Medical Decision Making: Problems: Moderate: Acute illness with systemic symptoms Risk: Low: Low risk from testing/treatment Moderate: Drug management Medical Decision Making Level: 4 - Moderate I spent a total of 20 minutes on the date of the service which included preparing to see the patient, [id number] patient care, completing clinical documentation, performing a medically appropriate examination, counseling and educating the patient/family/caregiver, and ordering medications, tests, or procedures. documented in this encounter [facility] History of Past illness Narrative 04-24-2011 Note Date & Type Note Facility documented as of this encounter (statuses as of 02/15/2023) [facility] Evaluation note Note Date & Type Note Facility documented in this encounter [facility] Summary Purpose Family History No Family History Records FoundNo Family History Records Found Advance Directives No Advanced Directives Records FoundNo Advanced Directives Records Found Additional Source Comments INFORMATION SOURCE (unrecogn ized section and content) DATE CREATED AUTHOR AUTHOR'S PATRICK ATION 02/16/2023 [facility] Source Comments (unrecognize d section and content) In the event this informatio n is protected by the Federal Confidentiality of Alcohol and Drug Abuse Patient Records regulations: The Federal rules restrict any use of the information to criminally investigate or prosecute any alcohol or drug abuse patient.[facility] Reason for Visit (unrecogniz ed section and content) Care Teams (unrecognized sec tion and content) FOR RECORDS PERTAINING TO PATIENTS WHO ARE OR HAVE BEEN ENROLLED IN A CHEMICAL DEPENDENCY/SUBSTANCEABUSE PROGRAM, SOME INFORMATION MAY BE OMITTED. This clinical summary was aggregated from multiple sources. Caution should be exercised in using it in the provision of clinical care. This summary normalizes information from multiple sources, and as a consequence, information in this document may materially change the coding, format and clinical context of patient data. In addition, data may be omitted in some cases. CLINICAL DECISIONS SHOULD BE BASED ON THE PRIMARY CLINICAL RECORDS. [employer] [facility]. provides no warranty or guarantee of the accuracy or completeness of information in this document.
[2023-11-08 12:05] LABS: Erythrocyte Sedimentation Rate < 1 mm/hr (0-30)
[2023-11-08 12:06] LABS: Absolute Neutrophil Count 3.8 X10^3/uL (2.0-7.7); Basophil# 0.04 X10^3/uL; Basophil% 0.6 % (0-1); Eosinophil# 0.08 X10^3/uL; Eosinophils% 1.2 % (0-5); Hematocrit 36.7 % (37-47); Hemoglobin 12.1 g/dL (12.0-15.0); Lymphocyte % 34.8 % (19-41); Mean Corpuscular Hgb 28.4 pg (27.0-32.0); Mean Corpuscular Volume 86.2 fL (81-99); Mean Platelet Vol. 10.7 fl (6.2-12.0); Monocyte# 0.58 X10^3/uL; Monocyte% 8.4 % (0-10); NRBC Flagged by Analyzer 0 % (0-5); Neutrophil # 3.77 X10^3/uL (2.7-7.7); Neutrophil % 54.7 % (47-70); Platelet Count 339 K/mm3 (150-450); RBC Distribution Width CV 12.3 % (11.6-14.6); RBC Distribution Width SD 38.7 fl (35.1-43.9); Red Blood Count 4.26 M/mm3 (4.2-5.4); White Blood Count 6.9 K/mm3 (4.4-11.0)
[2023-11-08 12:55] LABS: ALB/GLOB Ratio 1.3 RATIO (0.9-2.4); AST(SGOT) 15 U/L (15-37); Alanine Aminotransfer ALT/SGPT 31 U/L (13-56); Albumin, Serum 4.2 g/dL (3.2-5.0); Alkaline Phosphatase 53 U/L (45-117); Anion Gap 3 (5-15); BUN 11 mg/dL (7-18); BUN/Creat Ratio 13.3 RATIO (10-20); CRP < 2.90 mg/L (0.0-3.0); Calcium,Total 8.9 mg/dL (8.5-10.1); Chloride 108 mmol/L (98-107); Creatinine, Serum 0.82 mg/dL (0.55-1.02); EST Glomerular Filtration Rate 86 mL/min (>60); Est Glom Filt Rate - Afr Amer 103 mL/min (>60); Globulin 3.3 g/dL (2.2-4.2); Glucose 106 mg/dL (74-106); Potassium 3.6 mmol/L (3.5-5.1); Protein, Total 7.5 g/dL (6.4-8.2); Sodium Level 138 mmol/L (136-145)
== END | disposition home or self-care (01) ==
LOC: MFPLAB 11:18
PROVIDERS: PCP Family Medicine; Visit Provider Family Medicine
DX: R10.31 Right lower quadrant pain (principal)
CPT/HCPCS: 36415; 80053; 85025; 85652; 86140

== ENCOUNTER → 2023-11-18 | Outpatient (CLI) | payer OTHER, SELFPAY ==
--- NOTE | 2023-11-18 17:44 | CT_ITS ---
STUDY: CT ABDOMEN AND PELVIS WITH CONTRAST REASON FOR EXAM: Female, 32 years old. RLQ pain, menstrual-related pain and pain down leg/menstrual scia RADIATION DOSAGE (If Supplied By Facility): CTDIvol = ( 12.42 ) mGy, DLP = ( 948.58 ) mGycm TECHNIQUE: Transaxial images were obtained from the dome of the diaphragm to the symphysis pubis without oral contrast. IV 100mL Isovue-300 was administered. Sagittal and coronal images were reconstructed. Individualized dose optimization techniques were used for this CT. COMPARISON: CT: 08/24/2019. Ultrasound dated 04/15/2023. FINDINGS: The visualized lung bases are unremarkable. The visualized portions of the heart are within normal limits. Normal liver. There is non-visualization of the gallbladder, consistent with known prior cholecystectomy. Normal spleen. Normal pancreas. Normal bilateral adrenal glands. Normal right kidney. Normal left kidney. Normal visualized stomach. Normal small intestine. Mild thickening of the wall throughout the colon diffusely and more so through the descending portion and sigmoid suggestive of mild diffuse colitis. There is non-visualization of the appendix. Normal abdominal aorta. Normal inferior vena cava. Normal retroperitoneum. Normal urinary bladder. Anteverted uterus. Normal abdominal wall. Normal osseous structures. CT/Abdomen/Pelvis WITH Contrast IMPRESSION: Possible mild diffuse colitis. Nonvisualized appendix with no inflammatory process to suggest acute appendicitis. Nonvisualized gallbladder, consistent with known prior cholecystectomy. Otherwise unremarkable abdominal viscera. Electronically Signed: Leonor Russo MD at 21:01 EST ,
--- OUTSIDE RECORDS SUMMARY | 2023-11-18 18:06 | XMS RPT_ITS | CCD ---
Author Name Unknown Address [address] [place] [address] Organization [facility] Care Team Providers Care Annealer Name Role Phone CHRISSY, DR LAURIE France [...] sources) Morphine; Translations: [MORPHINE] Drug Allergy 04-07-2011 [facility] Work Phone: Medications Current Medications Medication Drug [...] 97.59 [degF] Madison Lang PA-C Work Phone: [facility] 02-15-2023 09:57-0400 Body weight 77.11 kg Madison Lang PA-C Work Phone: [facility] 02-15-2023 09:57-0400 Diastolic blood pressure 67 mm[Hg] Madison Lang PA-C Work Phone: [facility] 02-15-2023 09:57-0400 Heart rate 94 /min Madison Lang PA-C Work Phone: [facility] 02-15-2023 09:57-0400 SaO2% (BldA) [Mass fraction] 100 % Madison Lang PA-C Work Phone: [facility] 02-15-2023 09:57-0400 Systolic blood pressure 115 mm[Hg] Madison Lang PA-C Work Phone: [facility] Encounters Encounter Date Encounter Type Care Provider Facility Start: 02-15-2023 End: 02-15-2023 ambulatory CATHERINE SUAREZ Facility:[facility] Start: 02-15-2023 End: 02-15-2023 Patient encounter procedure Madison L Slabaugh PA-C Work Phone: [facility] Plan of Treatment Date Care Activity Detail Author Start: 08-31-2023 PAP TESTING PAP TESTING [facility] Start: 10-11-2022 DEPRESSION ASSESSMENT DEPRESSION ASS ESSMENT [facility] Start: 12-26-2021 HPV TESTING HPV TESTING [facility] Start: 10-24-2021 COVID-19 VACCINE (4 - Booster for Pfizer series) COVID-19 VACCINE (4 - Booster for Pfizer series) [facility] Start: 12-26-2010 Urine microalbumin profile DTAP,TDAP ,TD (1 - Tdap) [facility] Start: 12-26-2009 HIV SCREENING HIV SCREENING [facility] Start: 1990 HEPATITIS B (1 of 3 - 3-dose series) HEPATITIS B (1 of 3 - 3-dose series) [facility] Immunizations Immunization Date Immunization Notes Care Provider Gus ayala 08-29-2021 COVID-19 original vaccine, age 12+ yr, monovalent ([employer] - PURPLE TOP) Madison Slabaugh PA-C Work Phone: [facility] Work Phone: 07-13-2018 influenza, injectabl e, quadrivalent, contains preservative Madison Slabaugh PA-C Work Phone: [facility] 08-22-2017 influenza, seasonal, injectable Madison Slabaugh PA-C Work Phone: [facility] Work Phone: 08-10-2016 influenza, seasonal, injectable Madison Slabaugh PA-C Work Phone: [facility] 07-30-2015 influenza, seasonal, injectable Madison Slabaugh PA-C Work Phone: [facility] 08-14-2014 influenza, seasonal, injectable Madison Slabaugh PA-C Work Phone: [facility] 08-16-2013 influenza virus vaccine, unspecified formulation Madison Slabaugh PA-C Work Phone: [facility] Work Phone: 07-25-2012 influenza virus vaccine, unspecified formulation Madison Slabaugh PA-C Work Phone: [facility] Payers Date Payer Category Payer Unknown [id number] 2019 Unknown MMO MMO [employer] PPO [id number] 2019-Present [phone] [address] [place] [address] PPO [id number] 1990 Unknown [id number] 1990 Unknown [id number] Social History Date Type Detail Facility Start: 09-14-2011 Tobacco smoking stat us LAIS Never smoked tobacco [facility] Work Phone: Start: 09-14-2011 Tobacco use and exposure Smokeless tobacco non-user [facility] Work Phone: Start: 02-15-2023 Alcohol intake 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 Author Type: Physician Acquisition Analyst Type: Progress Notes Filed: 02/15/2023 10:25 AM [...] Imm Admin: COVID-19 vaccine, age 12+ yr ([employer] - PURPLE TOP) 01/30/2021 Outside Immunization: COVID-19, [...] motion without pain. (more content not included)... [facility] Instructions 02-15-2023 Patient Instructions Note Date & [...] Madison Lang PA-C documented in this encounter [facility] History of Present illness Narrative 02-15-2023 Madison [...] Imm Admin: COVID-19 vaccine, age 12+ yr ([employer] - PURPLE TOP) 01/30/2021 Outside Immunization: COVID-19, [...] which included preparing to see the patient, [id number] patient care, completing clinical documentation, performing a medically appropriate examination, counseling and educating the patient/family/caregiver, and ordering medications, tests, or procedures. documented in this encounter [facility] History of Past illness Narrative 04-24-2011 Note Date & Type Note Facility documented as of this encounter (statuses as of 02/15/2023) [facility] Evaluation note Note Date & Type Note Facility documented in this encounter [facility] Summary Purpose Family History No Family History Records FoundNo Family History Records Found Advance Directives No Advanced Directives Records FoundNo Advanced Directives Records Found Additional Source Comments INFORMATION SOURCE (unrecogn ized section and content) DATE CREATED AUTHOR AUTHOR'S PATRICK ATION 02/16/2023 [facility] Source Comments (unrecognize d section and content) In the event this informatio n is protected by the Federal Confidentiality of Alcohol and Drug Abuse Patient Records regulations: The Federal rules restrict any use of the information to criminally investigate or prosecute any alcohol or drug abuse patient.[facility] Reason for Visit (unrecogniz ed section and [...] BE BASED ON THE PRIMARY CLINICAL RECORDS. [employer] [facility]. provides no warranty or guarantee of the accuracy or completeness of information in this document.
== END | disposition home or self-care (01) ==
LOC: PR 17:37 → CT 17:42
PROVIDERS: PCP Family Medicine; Referring Provider Family Medicine; Visit Provider Family Medicine
DX: R10.31 Right lower quadrant pain (principal)
CPT/HCPCS: 74177; Q9967

== ENCOUNTER → 2023-11-23 | Outpatient (CLI) | payer OTHER, SELFPAY ==
[2023-11-27 01:07] LABS: Calprotectin, Stool 44 ug/g (0-120)
[2023-11-28 22:06] LABS: Pancreatic Elastase, Fecal 301 (>200)
== END | disposition home or self-care (01) ==
LOC: LABSPEC 11:36
PROVIDERS: PCP Family Medicine; Referring Provider Internal Medicine Gastroenterology; Visit Provider Internal Medicine Gastroenterology
DX: R19.7 Diarrhea, unspecified (principal); K58.9 Irritable bowel syndrome, unspecified
CPT/HCPCS: 82653; 83630; 83993; 87177; 87209; 87329; 87493; 87506

== ENCOUNTER 2023-12-01 09:15 | Day surgery (SDC) | payer OTHER, SELFPAY ==
[2023-12-01] VITALS (7 sets, daily range): BP systolic 96–113; BP diastolic 63–78; PULSE 73–92; RESP 16; TEMP 36.2–37.3; O2SAT 97–100; BMI 26.3
[2023-12-01 09:45] LABS: Internal QC Validated? YES +Cl - CLEAR BKGD; Record Kit Lot#,Urine Preg H0000718086
[2023-12-01] MEDS: Lactated Ringers 1,000 ML 15 ML IV (09:45)
[2023-12-01 09:48] LABS: Pregnancy, Urine Negative Negative
--- NOTE | 2023-12-01 09:48 | PCM.HP.BLA ---
History and Physical Date of Admission: 12/01/23 32 F who presents to the office today for WSA established previously ? EGD 12.12.19 variable Zline 36cm; 1cm hiatal hernia; gastritis with friable mucosa. H.Pylori negative. ? Laparoscopic cholecystectomy 05.01.20 with lysis of adhesions. ? EGD and colonoscopy 06.12.22 EGD gastritis; esophagitis with EOE changes and >20 eosinophil presence. ? Colonoscopy internal hemorrhoids; end-to-end colo-colonic anastomosis. *BGI established 07.03.22 with previously diagnosed EOE managed with omeprazole 20mg QD and loose stools with FH Crohn?s disease. Start cholestyramine ? Biochemical CBC, ESR, CMP, LFT, CRP, LDH, ALOK comp, ANCA, GAME, INGRID, IBD without pertinent abnormality ? Stool calprotectin, elastase, c.difficile, EP, O/P, giardia WNL? Lactoferrin + ? US and elastography 08.25.22 hepatic measurement 16.1cm with fatty infiltration, stiffness 9.2kPa OV 09.01.22 with improvement of loose stools. Start ursodiol ? Biochemical triglycerides H211, LDL H42 ? Start Dupixent OV 03.01.23 for IBS, EOE, NAFLD follow up. Currently having difficulty with bloating, suspect SIBO, Start doxycycline. ? US and elastography 04.15.23 hepatic measurement 18.6cm with fatty infiltration, stiffness 4.4kPa Contact 04.21.23 with US/elastography update; continue current medications OV 08.30.23 feels she is doing well. Dupixent continues without difficulty. No swallowing issues. ROS Const Constitutional: Positive for fatigue and weight change ENT ENT: No difficulty swallowing Gastro GI: Positive for abdominal pain, bloating, change in bowel habits, constipation and excessive flatus; No belching, change in stool character, coffee ground emesis, cramping, diarrhea, heartburn, difficulty swallowing, feeling full early, incontinent of stools, Vomiting blood/hematemesis, Blood in stool, loose stools, Black,tarry stools, nausea/dyspepsia, pain with swallowing, vomiting or other Musc Musculoskeletal: No joint pain Skin Skin: No yellowing of the eye or itchy eyes Psych Psychiatric: No anxiety and No depression Endo Endocrine: Positive for fatigue and weight change Aller/Imm Allergy/Immunologic: No itchy eyes Prakash/Lymp Hematologic/Lymphatic: No easy bleeding or easy bruising Exam Const General: cooperative and comfortable Orientation: alert, awake and oriented x3 Quality Reporting Tobacco Screening ([facility] 138) Smoking Status: Never smoker Assessment and Plan Assessment and Plan (1) Eosinophilic esophagitis: Status: Chronic Plan: Continue Dupixent qwk. We will repeat her upper endoscopy with biopsies throughout the esophagus. (2) NAFLD (nonalcoholic fatty liver disease): Status: Chronic Plan: Continue vitamin E. She took ursodiol x 6 mos. Update elastography, will contact her with result. (3) Bloating: Status: Chronic Plan: Bothersome x 6 mos, started before IBS switched from diarrhea to constipation. ?SIBO. Try course of doxycycline, let me know if that helps. We will check her for HLA DQ 2 and HLA DQ 8 as she is gluten-free for celiac disease. And if that does not work we may have to do a colonoscopy. (4) IBS (irritable bowel syndrome): Status: Chronic Qualifiers: Irritable bowel syndrome type: without diarrhea Qualified Code(s): K58.9 - Irritable bowel syndrome without diarrhea Plan: Previously bothered by diarrhea, now having constipation. If metamucil doesn't help, can consider Miralax or Fiber Choice tablets or kiwi supplement pills or probiotic. F/u 6 mos Orders: Orders EGD 09/15/23 K20.0 - Eosinophilic esophagitis Miscellaneous Lab Procedure Today K76.0 - Fatty (change of) liver, not elsewhere classified, K90.41 - Non-celiac gluten sensitivity Medications: Discontinued dicyclomine Discontinued Reason: Order Completed 10 mg PO BID 60 caps 1RF ondansetron Discontinued Reason: Order Completed 4 mg PO Q8H PRN 14 tabs 0RF nausea and vomiting doxycycline hyclate Discontinued Reason: Order Completed I have examined the patient and the H&P has been reviewed. There are no clinical changes since date of exam.
--- OUTSIDE RECORDS SUMMARY | 2023-12-01 09:59 | XMS RPT_ITS | CCD ---
Author Name Unknown Address [address] [place] [address] Organization [facility] Care Team Providers Care Assembly Line Brazer Name Role Phone CHRISSY, DR LAURIE France [...] sources) Morphine; Translations: [MORPHINE] Drug Allergy 04-07-2011 [facility] Work Phone: Medications Current Medications Medication [...] 97.59 [degF] Madison Lang PA-C Work Phone: [facility] 02-15-2023 09:57-0400 Body weight 77.11 kg Madison Lang PA-C Work Phone: [facility] 02-15-2023 09:57-0400 Diastolic blood pressure 67 mm[Hg] Madison Lang PA-C Work Phone: [facility] 02-15-2023 09:57-0400 Heart rate 94 /min Madison Lang PA-C Work Phone: [facility] 02-15-2023 09:57-0400 SaO2% (BldA) [Mass fraction] 100 % Madison Lang PA-C Work Phone: [facility] 02-15-2023 09:57-0400 Systolic blood pressure 115 mm[Hg] Madison Lang PA-C Work Phone: [facility] Encounters Encounter Date Encounter Type Care Provider Facility Start: 02-15-2023 End: 02-15-2023 ambulatory CATHERINE SUAREZ Facility:[facility] Start: 02-15-2023 End: 02-15-2023 Patient encounter procedure Madison L Slabaugh PA-C Work Phone: [facility] Plan of Treatment Date Care Activity Detail Author Start: 08-31-2023 PAP TESTING PAP TESTING [facility] Start: 10-11-2022 DEPRESSION ASSESSMENT DEPRESSION ASS ESSMENT [facility] Start: 12-26-2021 HPV TESTING HPV TESTING [facility] Start: 10-24-2021 COVID-19 VACCINE (4 - Booster for Pfizer series) COVID-19 VACCINE (4 - Booster for Pfizer series) [facility] Start: 12-26-2010 Urine microalbumin profile DTAP,TDAP ,TD (1 - Tdap) [facility] Start: 12-26-2009 HIV SCREENING HIV SCREENING [facility] Start: 1990 HEPATITIS B (1 of 3 - 3-dose series) HEPATITIS B (1 of 3 - 3-dose series) [facility] Immunizations Immunization Date Immunization Notes Care Provider Gus ayala 08-29-2021 COVID-19 original vaccine, age 12+ yr, monovalent (PFIZER-[employer]ION[employer]CH - PURPLE TOP) Madison Slabaugh PA-C Work Phone: [facility] Work Phone: 07-13-2018 influenza, injectabl e, quadrivalent, contains preservative Madison Slabaugh PA-C Work Phone: [facility] 08-22-2017 influenza, seasonal, injectable Madison Slabaugh PA-C Work Phone: [facility] Work Phone: 08-10-2016 influenza, seasonal, injectable Madison Slabaugh PA-C Work Phone: [facility] 07-30-2015 influenza, seasonal, injectable Madison Slabaugh PA-C Work Phone: [facility] 08-14-2014 influenza, seasonal, injectable Madison Slabaugh PA-C Work Phone: [facility] 08-16-2013 influenza virus vaccine, unspecified formulation Madison Slabaugh PA-C Work Phone: [facility] Work Phone: 07-25-2012 influenza virus vaccine, unspecified formulation Madison Slabaugh PA-C Work Phone: [facility] Payers Date Payer Category Payer Unknown [id number] 2019 Unknown MMO MMO [employer] PPO [id number] 2019-Present [phone] [address] [place] [address] PPO [id number] 1990 Unknown [id number] 1990 Unknown [id number] Social History Date Type Detail Facility Start: 09-14-2011 Tobacco smoking stat us MEIS Never smoked tobacco [facility] Work Phone: Start: 09-14-2011 Tobacco use and exposure Smokeless tobacco non-user [facility] Work Phone: Start: 02-15-2023 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 Author Type: Physician Hand Icer Type: Progress Notes Filed: 02/15/2023 10:25 AM [...] Imm Admin: COVID-19 vaccine, age 12+ yr ([employer] - PURPLE TOP) 01/30/2021 Outside Immunization: COVID-19, [...] motion without pain. (more content not included)... [facility] Instructions 02-15-2023 Patient Instructions Note Date & [...] Madison Lang PA-C documented in this encounter [facility] History of Present illness Narrative 02-15-2023 [...] Imm Admin: COVID-19 vaccine, age 12+ yr ([employer] - PURPLE TOP) 01/30/2021 Outside Immunization: COVID-19, [...] which included preparing to see the patient, [id number] patient care, completing clinical documentation, performing a medically appropriate examination, counseling and educating the patient/family/caregiver, and ordering medications, tests, or procedures. documented in this encounter [facility] History of Past illness Narrative 04-24-2011 Note Date & Type Note Facility documented as of this encounter (statuses as of 02/15/2023) [facility] Evaluation note Note Date & Type Note Facility documented in this encounter [facility] Summary Purpose Family History No Family History Records FoundNo Family History Records Found Advance Directives No Advanced Directives Records FoundNo Advanced Directives Records Found Additional Source Comments INFORMATION SOURCE (unrecogn ized section and content) DATE CREATED AUTHOR AUTHOR'S PATRICK ATION 02/16/2023 [facility] Source Comments (unrecognize d section and content) In the event this informatio n is protected by the Federal Confidentiality of Alcohol and Drug Abuse Patient Records regulations: The Federal rules restrict any use of the information to criminally investigate or prosecute any alcohol or drug abuse patient.[facility] Reason for Visit (unrecogniz ed section [...] BE BASED ON THE PRIMARY CLINICAL RECORDS. [facility]. provides no warranty or guarantee of the accuracy or completeness of information in this document.
--- NOTE | 2023-12-01 10:30 | COLBX_PTH ---
PATHOLOGY RESULTS PATIENT: WILLIAM HARRY LOC: EN U#:[id number] AGE/SX: 32/F ROOM: RE12/01/[address]: Dr. Samuel Nunez DO : 1990 BED: DIS: 12/01/2023 SPEC #: [id number] RECD: 12/01/23 12:49 STATUS: RAZ RODRIGUEZ #: [id number] ELYSE: 12/01/23 10:[address]: Samuel Nunez DEPT: SURGICAL PATHOLOGY RECD BY: Lise Smiley ENTERED: 12/01/23 12:50 SP TYPE: COLON BX OTHR DR: Dr. Jadon Lyn MD Tissues: Ileum, NOS Procedures: Surgery Specimen Level IV HEADER OPERATION: Colonoscopy with biopsies PRE-OP DIAGNOSIS: Eosinophilic esophagitis, NAFLD, bloating, IBS TISSUE SUBMITTED: Terminal ileum biopsy MICROSCOPIC DIAGNOSIS Terminal ileum, biopsy: Fragments of small intestinal mucosa with acute and chronic inflammation. See comment. SONU:yusuf 12/02/2023 COMMENT Focal crypt abscesses are noted. Cryptitis, granulomas or glandular distortion are not seen. Correlation with clinical, endoscopic findings and appropriate follow up are necessary. MICROSCOPIC DESCRIPTION Slides are reviewed. GROSS DESCRIPTION Received in fixative is one container labeled with the patient's name and designated terminal ileum biopsy. The specimen consists of multiple irregular fragments of light sam soft tissue that in aggregate measure 1.5 x 0.5 x 0.1 cm. The specimen is totally submitted in one cassette. / SONU:yusuf 12/01/2023 TC:3 CPT: 11387
--- NOTE | 2023-12-01 11:10 | OP.CCLET_ITS ---
12/01/2023 Jadon Lyn [address] [place] [address] Re : Colonoscopy procedure for [facility] Dear Dr. Lyn This procedure was performed on Friday, December 01, 2023. My impressions and recommendations are as follows: Impressions : - Patent end-to-end ileo-colonic anastomosis, characterized by edema, erythema and friable mucosa. - Crohn's disease. Inflammation was found. This was moderate in severity. Biopsied. - Internal hemorrhoids. Recommendations : - Repeat colonoscopy in 1 year for surveillance. - Continue present medications. My findings are described in the full procedure note, which is enclosed. If I can be of further assistance, please feel free to contact me at . Sincerely, Samuel Friend, 12/01/2023 11:09:45 AM This report has been signed electronically.
--- NOTE | 2023-12-01 11:10 | OP.COLON_ITS ---
Patient Name: Prosper Rea Procedure Date: 12/01/2023 10:29 AM Date of : 1990 Age: 32 Procedure: Colonoscopy Indications: Chronic diarrhea Providers: Samuel Nunez DO Referring MD: Jadon Lyn Medicines: Monitored Anesthesia Care Patient Profile: This is a 32 year old female. Refer to note in patient chart for documentation of history and physical. Patient has symptoms of chronic abdominal cramping, chronic global abdominal pain and chronic diarrhea. Last Colonoscopy: none. The patient's first colonoscopy is today. Complications: No immediate complications. Procedure: Pre-Anesthesia Assessment: - Prior to the procedure, a History and Physical was performed, and patient medications and allergies were reviewed. The patient is competent. The risks and benefits of the procedure and the sedation options and risks were discussed with the patient. All questions were answered and informed consent was obtained. Patient identification and proposed procedure were verified by the physician in the pre-procedure area. Mental Status Examination: alert and oriented. Respiratory Examination: clear to auscultation. CV Examination: normal. Prophylactic Antibiotics: The patient does not require prophylactic antibiotics. Prior Anticoagulants: The patient has taken no anticoagulant or antiplatelet agents. ASA Grade Assessment: II - A patient with mild systemic disease. After reviewing the risks and benefits, the patient was deemed in satisfactory condition to undergo the procedure. The anesthesia plan was to use moderate sedation / analgesia (conscious sedation). Immediately prior to administration of medications, the patient was re-assessed for adequacy to receive sedatives. The heart rate, respiratory rate, oxygen saturations, blood pressure, adequacy of pulmonary ventilation, and response to care were monitored throughout the procedure. The physical status of the patient was re-assessed after the procedure. After I obtained informed consent, the scope was passed under direct vision. Throughout the procedure, the patient's blood pressure, pulse, and oxygen saturations were monitored continuously. The Colonoscope was introduced through the anus and advanced to the terminal ileum. The colonoscopy was performed without difficulty. The patient tolerated the procedure well. The quality of the bowel preparation was good. The terminal ileum, ileocecal valve, appendiceal orifice, and rectum were photographed. Scope In: 10:43:21 AM Scope Withdrawal Time 0 hours 8 minutes 19 seconds Scope Out: 10:56:05 AM Total Procedure Duration Time 0 hours 12 minutes 44 seconds Findings: The perianal and digital rectal examinations were normal. There was evidence of a prior end-to-end ileo-colonic anastomosis in the proximal ascending colon. This was patent and was characterized by edema, erythema and friable mucosa. Patchy inflammation characterized by erythema, friability, granularity and aphthous ulcerations was found in the terminal ileum. The inflammation was moderate in severity. Biopsies were taken with a cold forceps for histology. Verification of patient identification for the specimen was done. Estimated blood loss was minimal. Internal hemorrhoids were found during retroflexion. The hemorrhoids were Grade II (internal hemorrhoids that prolapse but reduce spontaneously). Impression: - Patent end-to-end ileo-colonic anastomosis, characterized by edema, erythema and friable mucosa. - Crohn's disease. Inflammation was found. This was moderate in severity. Biopsied. - Internal hemorrhoids. Recommendation: - Repeat colonoscopy in 1 year for surveillance. - Continue present medications. Procedure Code(s): --- Professional --- 10009, Colonoscopy, flexible; with biopsy, single or multiple CPT copyright 2021 [employer] [employer]. All rights reserved. The codes documented in this report are preliminary and upon watchmaker apprentice review may be revised to meet current compliance requirements. Samuel Nunez DO 12/01/2023 11:09:45 AM This report has been signed electronically. Number of Addenda: 0 Note Initiated On: 12/01/2023 10:29 AM
== END 2023-12-01 11:47 | disposition home or self-care (01) ==
LOC: EN 09:16 → AC 09:18
PROVIDERS: Anesthesiology; PCP Family Medicine; Referring Provider Family Medicine; Visit Provider Internal Medicine Gastroenterology
PROC: 0DJD8ZZ Inspection of Lower Intestinal Tract, Via Natural or Artificial Opening Endoscopic (ICD-10-PCS; CPT 45378; principal; 2023-12-01 10:25)
DX: K52.9 Noninfective gastroenteritis and colitis, unspecified (principal); K64.1 Second degree hemorrhoids; K20.0 Eosinophilic esophagitis; Z90.49 Acquired absence of other specified parts of digestive tract; K76.0 Fatty (change of) liver, not elsewhere classified; K90.41 Non-celiac gluten sensitivity; Z79.84 Long term (current) use of oral hypoglycemic drugs; K21.9 Gastro-esophageal reflux disease without esophagitis; Z79.899 Other long term (current) drug therapy
CPT/HCPCS: 45380; 81025; 88305; J7120; J2405

== ENCOUNTER → 2024-01-03 | Outpatient (CLI) | payer OTHER, SELFPAY ==
--- NOTE | 2024-01-03 09:59 | RAD_ITS ---
STUDY: X-RAY - LEFT RADIUS AND ULNA REASON FOR EXAM: Female, 33 years old. Pain following injury. TECHNIQUE: 2 view(s) of the forearm. COMPARISON: None. FINDINGS: There is no demonstrated soft tissue swelling. Normal visualized radius. Normal visualized ulna.
--- NOTE | 2024-01-03 09:59 | RAD_ITS ---
STUDY: X-RAY - LEFT WRIST REASON FOR EXAM: Female, 33 years old. Pain following a fall. TECHNIQUE: 3 view(s) of the wrist were obtained. COMPARISON: None. FINDINGS: Normal visualized distal radius and ulna. Normal radiocarpal articulation. Normal distal radioulnar articulation. Normal carpal bones. Normal carpal articulations. Normal carpometacarpal articulation of the thumb. Normal second through fifth carpometacarpal articulations. Normal visualized metacarpal bones. The soft tissue structures are unremarkable. RAD/Wrist min 3 Views IMPRESSION: Normal x-ray examination of the wrist. Electronically Signed: Jamel Gonzalez MD at 10:14 EDT ,
== END | disposition home or self-care (01) ==
LOC: MTRAD 09:58
PROVIDERS: PCP Family Medicine; Referring Provider Physician Assistant; Visit Provider Physician Assistant
DX: M25.532 Pain in left wrist (principal); M79.632 Pain in left forearm; W19.XXXA Unspecified fall, initial encounter
CPT/HCPCS: 73090; 73110

== ENCOUNTER → 2024-02-18 | Outpatient (CLI) | payer OTHER, SELFPAY ==
[2024-02-18 12:03] LABS: Erythrocyte Sedimentation Rate 3 mm/hr (0-30)
[2024-02-18 12:22] LABS: CRP < 2.90 mg/L (0.0-3.0)
--- NOTE | 2024-02-18 12:30 | RAD_ITS ---
STUDY: X-RAY - ABDOMEN/PELVIS REASON FOR EXAM: Female, 33 years old. s/p capsule endoscopy TECHNIQUE: Single AP view of the abdomen / pelvis. COMPARISON: None. FINDINGS: Normal visualized lung bases. There is an unremarkable bowel gas pattern. There is no demonstrated free abdominal air. The visualized liver, spleen and kidneys are grossly normal in size and morphology. Normal soft tissue structures. Normal visualized osseous structures. RAD/Abdomen Single View IMPRESSION: Normal x-ray examination of the abdomen and pelvis. Electronically Signed: Jamel Gonzalez MD at 13:29 EDT ,
[2024-02-21 13:07] LABS: Anti-Centromere B Ab <0.2 AI (0.0-0.9); Anti-Chromatin <0.2 AI (0.0-0.9); Anti-Jo <0.2 AI (0.0-0.9); Anti-Scleroderma-70 AB <0.2 AI (0.0-0.9); Anti-dsDNA Ab <1 IU/mL (0-9); RNP Ab 0.2 AI (0.0-0.9); SJOGREN'S Anti-SS-A test < 0.2 AI (0.0-0.9); SJOGREN'S Anti-SS-B test < 0.2 AI (0.0-0.9); Smith Ab <0.2 AI (0.0-0.9)
[2024-02-21 15:07] LABS: Cytoplasmic Ab (C-ANCA) <1:20 titer (Neg:<1:20); IgG, Quant 949 mg/dL (586-1602); Immunoglobulin G, Subclass 1 487 mg/dL (248-810); Immunoglobulin G, Subclass 2 287 mg/dL (130-555); Immunoglobulin G, Subclass 3 44 mg/dL (15-102); Immunoglobulin G, Subclass 4 26 mg/dL (2-96); Perinuclear Ab (P-ANCA) <1:20 titer (Neg:<1:20)
== END | disposition home or self-care (01) ==
LOC: LAB 11:39
PROVIDERS: PCP Family Medicine; Referring Provider Internal Medicine Gastroenterology; Visit Provider Internal Medicine Gastroenterology
DX: K52.9 Noninfective gastroenteritis and colitis, unspecified (principal); D84.9 Immunodeficiency, unspecified
CPT/HCPCS: 36415; 74018; 82784; 82787; 85652; 86140; 86225; 86235; 86256; 86480

== ENCOUNTER → 2024-02-22 | Outpatient (CLI) | payer OTHER, SELFPAY ==
[2024-03-01 15:08] LABS: Calprotectin, Stool 80 ug/g (0-120)
== END | disposition home or self-care (01) ==
PROVIDERS: PCP Family Medicine; Referring Provider Internal Medicine Gastroenterology; Visit Provider Internal Medicine Gastroenterology
DX: K52.9 Noninfective gastroenteritis and colitis, unspecified (principal); D84.9 Immunodeficiency, unspecified
CPT/HCPCS: 83630; 83993

== ENCOUNTER → 2024-03-20 | Outpatient (CLI) | payer OTHER, SELFPAY ==
[2024-03-22 17:07] LABS: HPV APTIMA, High Risk Negative (Negative)
== END | disposition home or self-care (01) ==
PROVIDERS: PCP Family Medicine; Referring Provider Obstetrics & Gynecology; Visit Provider Obstetrics & Gynecology
DX: Z12.4 Encounter for screening for malignant neoplasm of cervix (principal)
CPT/HCPCS: 87624; 88175; G0145

== ENCOUNTER → 2024-08-10 | Outpatient (CLI) | payer OTHER, SELFPAY ==
[2024-08-10 16:48] LABS: Absolute Lymphocyte Count 2.13 X10^3/uL (0.83-4.51); Absolute Neutrophil Count 4.2 X10^3/uL (2.0-7.7); Basophil# 0.03 X10^3/uL; Basophil% 0.4 % (0-1); Eosinophils% 1.4 % (0-5); Hematocrit 34.7 % (37-47); Hemoglobin 11.5 g/dL (12.0-15.0); Lymphocyte # 2.13 X10^3/ul (0.83-4.51); Lymphocyte % 30.6 % (19-41); Mean Corp Hgb Conc 33.1 g/dL (32-36); Mean Corpuscular Hgb 29.1 pg (27.0-32.0); Mean Corpuscular Volume 87.8 fL (81-99); Mean Platelet Vol. 10.1 fl (6.2-12.0); Monocyte# 0.52 X10^3/uL; Monocyte% 7.5 % (0-10); NRBC Flagged by Analyzer 0 % (0-5); Neutrophil # 4.16 X10^3/uL (2.7-7.7); Neutrophil % 59.8 % (47-70); Platelet Count 270 K/mm3 (150-450); RBC Distribution Width CV 11.9 % (11.6-14.6); RBC Distribution Width SD 38.5 fl (35.1-43.9); Red Blood Count 3.95 M/mm3 (4.2-5.4)
[2024-08-10 17:07] LABS: ALB/GLOB Ratio 1.2 RATIO (0.9-2.4); AST(SGOT) 14 U/L (15-37); Alanine Aminotransfer ALT/SGPT 36 U/L (13-56); Alkaline Phosphatase 55 U/L (45-117); Anion Gap 4 (5-15); BUN 10 mg/dL (7-18); BUN/Creat Ratio 12.5 RATIO (10-20); Calcium,Total 8.6 mg/dL (8.5-10.1); Chloride 105 mmol/L (98-107); EST Glomerular Filtration Rate 88 mL/min (>60); Est Glom Filt Rate - Afr Amer 107 mL/min (>60); Globulin 3.2 g/dL (2.2-4.2); Glucose 101 mg/dL (74-106); Potassium 3.8 mmol/L (3.5-5.1); Protein, Total 7.2 g/dL (6.4-8.2); Sodium Level 137 mmol/L (136-145)
[2024-08-10 17:13] LABS: CRP < 2.90 mg/L (0.0-3.0)
[2024-08-10 17:54] LABS: Erythrocyte Sedimentation Rate < 1 mm/hr (0-30)
== END | disposition home or self-care (01) ==
LOC: LAB 16:18
PROVIDERS: Student in an Organized Health Care Education/Training Program; PCP Family Medicine; Referring Provider Internal Medicine Gastroenterology; Visit Provider Internal Medicine Gastroenterology
DX: Z01.818 Encounter for other preprocedural examination (principal)
CPT/HCPCS: 80053; 85025; 85652; 86140

== ENCOUNTER → 2024-08-11 | Outpatient (CLI) | payer OTHER, SELFPAY ==
[2024-08-17 07:09] LABS: Calprotectin, Stool 5 ug/g (0-120)
== END | disposition home or self-care (01) ==
LOC: MTLAB 15:11
PROVIDERS: PCP Family Medicine; Referring Provider Internal Medicine Gastroenterology; Visit Provider Internal Medicine Gastroenterology
DX: K90.0 Celiac disease (principal); D84.9 Immunodeficiency, unspecified
CPT/HCPCS: 83993

== ENCOUNTER → 2024-08-14 | Outpatient (CLI) | payer OTHER, SELFPAY ==
--- NOTE | 2024-08-14 | GANG_PTH ---
PATIENT: WILLIAM HARRY LOC: [facility]#:[id number] AGE/SX: 33/F ROOM: RE08/14/[address]: Dr. Seb Whitney DPM : 1990 BED: DIS: 08/14/2024 SPEC #: [id number] RECD: 08/14/24 13:16 STATUS: RAZ MICHAEL #: [id number] ELYSE: 08/14/24 00:[address]: Seb Whitney DEPT: SURGICAL PATHOLOGY RECD BY: Adithya Isaac ENTERED: 08/14/24 13:17 SP TYPE: GANGLION OTHR DR: Dr. Jadon Lyn MD Tissues: A - GANGLION CYST B - Bone of foot, NOS Procedures: Decalcification bone/plaque Surgery Specimen Level III HEADER OPERATION: Right arthroplasty of the distal interphalangeal joint of second digit, excision of ganglionic cyst of second digit PRE-OP DIAGNOSIS: Pain in right toe, ganglion, right ankle and foot TISSUE SUBMITTED: A- Right foot second digit ganglion cyst and skin edge, B- Middle phalanx second digit, right foot MICROSCOPIC DIAGNOSIS A. Right foot, second digit ganglion cyst and skin edge: Fragment of acral skin with digital mucous cyst. B. Middle phalanx second digit, right foot: Fragment of bone with overlying cartilage and minute fragment of attached soft tissue showing degenerative changes. PW. 08/16/2024 MICROSCOPIC DESCRIPTION Slides are reviewed. GROSS DESCRIPTION A. Received in fixative is one container labeled with the patient's name and designated Right foot second digit ganglion cyst and skin edge. The specimen consists of a piece of sam-white skin measuring 1.2 x 0.6 x 0.5cm. The specimen is inked, serially sectioned and submitted entirely in one cassette. B. Received in fixative is one container labeled with the patient's name and designated Middle phalanx second digit, right foot. The specimen consists of a piece of bone measuring 1.0 x 0.4 x 0.3cm. The specimen is bisected and submitted entirely in one cassette after decalcification. SJ. 08/15/2024 TC:5 CPT:93639v1,95951
== END | disposition home or self-care (01) ==
LOC: LABSPEC 11:09
PROVIDERS: PCP Family Medicine; Referring Provider Student in an Organized Health Care Education/Training Program; Visit Provider Student in an Organized Health Care Education/Training Program
DX: M67.471 Ganglion, right ankle and foot (principal); M79.674 Pain in right toe(s); L72.9 Follicular cyst of the skin and subcutaneous tissue, unspecified
CPT/HCPCS: 88304; 88311

== ENCOUNTER 2024-09-11 05:21 | Day surgery (SDC) | payer OTHER, SELFPAY ==
[2024-09-11] VITALS (7 sets, daily range): BP systolic 112–115; BP diastolic 72–92; PULSE 5–105; RESP 15–16; TEMP 36.1; O2SAT 100; BMI 25.9
[2024-09-11 05:51] LABS: Internal QC Validated? YES +Cl - CLEAR BKGD; Pregnancy, Urine Negative Negative
--- NOTE | 2024-09-11 06:27 | PRE.ANES_ITS ---
ASA Classification* ASA Classification ASA Classification: 2 Assessment & Plan Anesthesia* Anesthesia Assessment Anesthesia Assessment: Discussed sedation and/or anesthesia options, risks, benefits, and alternatives with patient/parents/legal guardian/POA. Questions invited. The patient/parents/legal guardian/POA seems to understand and agrees to proceed with anesthesia plan. Reviewed the physical assessment, medical history, allergy history and patient home medications list prior to surgery/procedure/anesthetic and documented any changes. Performed airway and anesthesia risk assessments. Anesthesia Type Anesthesia Type: MAC Anesthesia Focused Assessment* Temperature: 97.0 F Pulse Rate: 98 Blood Pressure: 115/92 Respiratory Rate: 16 Pulse Ox: 100 Airway Assessment Mouth opens: >3 cm Mallampati Score: II Focused Labs Anesthesia Preop lab: CBC WBC 7.0 K/mm3 (4.4-11.0) 08/10/24 16:25 RBC 3.95 M/mm3 (4.2-5.4) L 08/10/24 16:25 Hgb 11.5 g/dL (12.0-15.0) L 08/10/24 16:25 Hct 34.7 % (37-47) L 08/10/24 16:25 Plt Count 270 K/mm3 (150-450) 08/10/24 16:25 CHEMISTRY Potassium 3.8 mmol/L (3.5-5.1) 08/10/24 16:25 Sodium 137 mmol/L (136-145) 08/10/24 16:25 Magnesium 2.1 mg/dL (1.6-2.6) 08/29/19 06:22 BUN 10 mg/dL (7-18) 08/10/24 16:25 Creatinine 0.80 mg/dL (0.55-1.02) 08/10/24 16:25 Glucose 101 mg/dL (74-106) 08/10/24 16:25 POC Glucose 128 mg/dL (70-110) H 06/07/16 06:49 TSH 0.84 uIU/mL (0.358-3.74) 03/11/23 12:07 COAG PT 13.9 SECONDS (11.7-14.9) 08/26/19 13:40 Urine Test Negative Negative 09/11/24 05:30 Pre-Assessment Diagnosis/Proposed Procedure Planned Operative Procedure(s): EGD/CSCOPE Anesthesia History Anesthesia History - bankruptcy processor: Anesthesia History - bankruptcy processor Hx Hospitalization No 09/06/24 14:24 Any Problems With Anesthesia Yes: N,V 09/06/24 14:24 Cholinesterase deficiency No 09/06/24 14:24 You/Your Family Experience No 09/06/24 14:24 fever (hyperthermia) with Relationship Recent Exposure to Contagious No 09/11/24 05:49 Disease Does patient have nerve No 09/06/24 14:24 stimulator Patient instructed to have device shut off --Does patient have Pacemaker No 09/11/24 05:49 or ICD? When Was Last Pacemaker Check QUESTION #4 FULL TEXT: You/Your Family Experience fever (hyperthermia) with Anesthesia Last Oral Intake Last Oral intake: Last Oral Intake NPO since 02:15 09/11/24 05:49 Meds taken in AM with sips of No 09/11/24 05:49 water? Meds patient instructed to take am of surgery PONV PONV - bankruptcy processor: PONV - bankruptcy processor Female Yes 09/06/24 14:24 HX of Motion Sickness Yes 09/06/24 14:24 HX of N/V After Surgery Yes 09/06/24 14:24 Non-Smoker Yes 09/06/24 14:24 Duration of Surgery greater No 09/06/24 14:24 than 60 minutes Number of Risk Factors 4 09/06/24 14:24 PONV Score Severe Risk 09/06/24 14:24 Height & Weight Height & Weight: Anesthesia: Height & Weight Height 5 ft 6 in 09/11/24 05:49 Weight: 73 kg 09/11/24 05:49 Body Mass Index (BMI) 25.9 09/11/24 05:49 Respiratory Assessment Respiratory Assessment - bankruptcy processor: Respiratory Tract Infection Hx - bankruptcy processor Hx Respiratory Tract Infection No 09/06/24 14:24 STOP Sleep Apnea STOP Sleep Apnea - bankruptcy processor: STOP Sleep Apnea - bankruptcy processor Hx Hypertension No 09/06/24 14:24 Hx Sleep Apnea No 09/06/24 14:24 CPAP BIPAP Do you snore loudly (louder No 09/06/24 14:24 than talking or can be heard Do you often feel tired/ No 11/27/24 14:24 fatigued/ sleepy during daytime? Has anyone observed you stop No 09/06/24 14:24 breathing during sleep? STOP Results Negative 09/06/24 14:24 QUESTION #5 FULL TEXT : Do you snore loudly (louder than talking or can be heard through closed doors)? Tobacco Use History Tobacco Use History - bankruptcy processor: Tobacco Use History - bankruptcy processor Tobacco Use Smoking Status Never smoker 09/06/24 14:24 Hx Tobacco Use No 09/06/24 14:24 Years Smoking Packs Smoked per Day Smoking Cessation Date was within the last 15 years Hx Smoking Cessation Date Hx Smoking Cessation Counseling Hematologic Medial History Hematologic Hx - bankruptcy processor: Hematologic Medical Hx - japanese tutor Hx of Blood Transfusion No 09/06/24 14:24 Hx of Transfusion in last 3 No 09/06/24 14:24 Months Date of Last Transfusion (if within last 3 months) Ever experience any problems No 09/06/24 14:24 with transfusion(s)? Specify any problems Hx of Preganancy in last 3 No 09/06/24 14:24 Months Nurse Filling Out Transfusion DSCHRIBER 09/06/24 14:24 & Questions: Date: 09/06/24 09/06/24 14:24 Time: 14:25 09/06/24 14:24 Patient unable to answer at this time (ie. confused, unrespo /Reproduction History /Reproductive History - bankruptcy processor: /Reproductive Hx- bankruptcy processor Hx Now No 09/06/24 14:24 Gestational Age (in weeks): EDC: Hx Hx Para Hx Section SAB No 09/06/24 14:24 PFSH Medical History Anemia Celiac disease History of Crohn's disease History of IBS Left wrist sprain Contusion of left forearm Contusion of left hip Dietary restriction Anxiety Gastric reflux Non-smoker Weight gain, abnormal Amenorrhea Biliary colic Anemia Anxiety, generalized IgA deficiency Non-celiac gluten sensitivity Malabsorption syndrome Metabolic syndrome Irritable bowel syndrome with diarrhea Abdominal pain GERD (gastroesophageal reflux disease) Sinusitis Gestational diabetes mellitus (GDM) COVID-19 Biliary dyskinesia Epigastric pain Acute hepatitis Pancytopenia Infectious mononucleosis Ovarian cyst Abnormal liver function tests Home Medications ?Medication ?Instructions ?Recorded ?Last Taken ?Type cholecalciferol (vitamin D3) 25 25 mcg PO DAILY 10/31/21 11/30/23 History mcg (1,000 unit) capsule vitamin E 268 mg (400 unit) capsule 268 mg PO BID 12/01/23 11/30/23 History omeprazole 40 mg capsule,delayed 40 mg PO BID #60 caps 08/07/24 Unknown Rx release ascorbic acid 1,000 1 ea PO DAILY 09/06/24 Unknown History by-[id number]-[id number] powder effervescent pack (Emergen-C Immune Plus) amoxicillin 875 mg tablet 875 mg PO BID 5 days #10 tabs 09/09/24 Unknown Rx Allergy/AdvReac Type Severity Reaction Status Date / Time morphine Allergy Hives Verified 09/11/24 05:43 Family History Grandmother Diabetes Father Hypertension Grandfather Cancer Sister Crohn's disease Surgical History Hx of anterior cruciate ligament tear reconstruction Hx of colonoscopy H/O hemicolectomy History of cholecystectomy (~04/2020) History of esophagogastroduodenoscopy (EGD) S/P appendectomy S/P ACL surgery S/P tonsillectomy Social History Smoking Status: Never smoker alcohol intake: current details: occasionally substance use type: does not use caffeine: Yes Type: coffee what type of physical activity do you participate in: aerobics frequency: 5-6 times per week seatbelt use: always do you feel safe at home: Yes additional social history: -Martin Review of Systems (Anesthesia) ROS Narrative System reviewed and no additional complaints, except as documented.
--- NOTE | 2024-09-11 06:30 | EGD_PTH ---
PATIENT: WILLIAM HARRY LOC: EN U#:[id number] AGE/SX: 33/F ROOM: RE09/11/[address]: Dr. Samuel Nunez DO : 1990 BED: DIS: 09/11/2024 SPEC #: [id number] RECD: 09/11/24 09:07 STATUS: RAZ MICHAEL #: [id number] ELYSE: 09/11/24 06:[address]: Samuel Nunez DEPT: SURGICAL PATHOLOGY RECD BY: Ailyn Lawson ENTERED: 09/11/24 10:05 SP TYPE: EGD BIOPSY KATALINA DR: Dr. Jadon Lyn MD Tissues: A - Gastric mucous membrane B - Duodenum, NOS C - Ileum, NOS Procedures: Surgery Specimen Level IV HEADER OPERATION: Colonoscopy, EGD biopsy PRE-OP DIAGNOSIS: Eosinophilic esophagitis, non-alcoholic fatty liver disease, bloating, irritable bowel syndrome TISSUE SUBMITTED: A- Gastric body biopsy, B- Duodenum biopsy, C- Terminal ileum biopsy MICROSCOPIC DIAGNOSIS A. Gastric body, biopsy: Mucosal ulceration with associated acute and chronic inflammation. See comment. B. Duodenum, biopsy No pathologic change. C. Terminal ileum, biopsy: Focal acute enteritis. See comment. 09/12/2024 COMMENT A. The results of immunohistochemistry for Helicobacter pylori will be reported separately ([id number]). C. There is cryptitis and cryptabscess formation, focally. Clinical correlation is suggested. MICROSCOPIC DESCRIPTION Slides are reviewed. GROSS DESCRIPTION A. Received in fixative is one container labeled with the patient's name and designated Gastric body ulcer biopsy. The specimen consists of multiple irregular fragments of light sam soft tissue that in aggregate measure 1.0 x 0.5 x 0.1 cm. The specimen is totally submitted in one cassette. B. Received in fixative is one container labeled with the patient's name and designated Duodenum biopsy. The specimen consists of two irregular fragments of light sam soft tissue that in aggregate measure 0.6 x 0.3 x 0.1 cm. The specimen is totally submitted in one cassette. C. Received in fixative is one container labeled with the patient's name and designated Terminal ileum biopsy. The specimen consists of two irregular fragments of light sam soft tissue that in aggregate measure 1.0 x 0.5 x 0.1 cm. The specimen is totally submitted in one cassette. 09/11/2024 TC:2 CPT:65744k5
--- NOTE | 2024-09-11 06:30 | IMM_PTH ---
PATIENT: WILLIAM HARRY LOC: [facility] U#:[id number] AGE/SX: 33/F ROOM: RE09/11/[address]: Dr. Samuel Nunez DO : 1990 BED: DIS: 09/11/2024 SPEC #: [id number] RECD: 09/11/24 09:39 STATUS: RAZ REJennifer #: [id number] ELYSE: 09/11/24 06:[address]: Samuel Nunez DEPT: IMMUNOHISTOCHEMISTRY RECD BY: Luciano Matos ENTERED: 09/11/24 09:39 SP TYPE: IMMUNO OTHR DR: Dr. Jadon Lyn MD Tissues: A - Gastric mucous membrane Procedures: H Pylori (initial) PHYSICIAN & INSTITUTION [place] [address] SPECIMEN INFORMATION: Tissue Source: A- Gastric body ulcer biopsy Clinical Info: Eosinophilic esophagitis, non alcoholic fatty liver disease, bloating, irritable bowel syndrome Specimen Number: [id number] CPT code: 66094 METHODOLOGY: Deparaffinized sections of prefer/formalin-fixed tissue or PAP/DQ stained slides are incubated with monoclonal/polyclonal antibodies/oligonucleotide probes. Localization is made via biotin free immunoperoxidase method. Appropriate controls are performed and reacted as expected. Results on target cell population are indicated in the following table: RESULTS: ANTIBODY / CLONE RESULT Block A H Pylori (polyclonal) negative These tests were developed and their performance characteristics determined by [facility]. They may not have been cleared or approved by the U.S. Food and Drug Administration. The FDA has determined that such clearance or approval is not necessary. The above immunohistochemical/dualISH markers are ordered and reviewed by the Pathologist. INTERPRETATION: A. Gastric body ulcer, biopsy: Negative for Helicobacter pylori organisms. AM 09/12/2024
--- NOTE | 2024-09-11 06:32 | PCM.HP.BLA ---
History and Physical Date of Admission: 09/11/24 WILLIAM HARRY, is a 33 F who presents to the office today for follow up. WSA established previously ? EGD 12.12.19 variable Zline 36cm; 1cm hiatal hernia; gastritis with friable mucosa. H.Pylori negative. ? Laparoscopic cholecystectomy 05.01.20 with lysis of adhesions. ? EGD and colonoscopy 06.12.22 EGD gastritis; esophagitis with EOE changes and >20 eosinophil presence. ? Colonoscopy internal hemorrhoids; end-to-end colo-colonic anastomosis. *BGI established 07.03.22 with previously diagnosed EOE managed with omeprazole 20mg QD and loose stools with FH Crohn?s disease. Start cholestyramine ? Biochemical CBC, ESR, CMP, LFT, CRP, LDH, ALOK comp, ANCA, GAME, INGRID, IBD without pertinent abnormality ? Stool calprotectin, elastase, c.difficile, EP, O/P, giardia WNL? Lactoferrin + ? US and elastography 08.25.22 hepatic measurement 16.1cm with fatty infiltration, stiffness 9.2kPa OV 09.01.22 with improvement of loose stools. Start ursodiol ? Biochemical triglycerides H211, LDL H42 ? Start Dupixent OV 03.01.23 for IBS, EOE, NAFLD follow up. Currently having difficulty with bloating, suspect SIBO, Start doxycycline. ? US and elastography 04.15.23 hepatic measurement 18.6cm with fatty infiltration, stiffness 4.4kPa Contact 04.21.23 with US/elastography update; continue current medications OV 08.30.23 feels she is doing well. Dupixent continues without difficulty. No swallowing issues. OV 02.28.24 OV 08.30.24 pt reports 1-2 loose bm daily for the past 1-2 months; endorses blood in stool, but states that she has a hx of hemorrhoids and is unsure is that's where the bleeding is coming from. Pt reports intermittent sharp abd pain, unable to pinpoint trigger. Pt notes gas and bloating even when she has not eaten anything. ROS Const Constitutional: No fatigue, fever(s) or weight change ENT ENT: No difficulty swallowing Gastro GI: Positive for abdominal pain, bloating, diarrhea, excessive flatus and Blood in stool; No belching, change in bowel habits, change in stool character, coffee ground emesis, constipation, cramping, heartburn, difficulty swallowing, feeling full early, incontinent of stools, Vomiting blood/hematemesis, loose stools, Black,tarry stools, nausea/dyspepsia, pain with swallowing, vomiting or other Musc Musculoskeletal: No joint pain Skin Skin: No yellowing of the eye or itchy eyes Psych Psychiatric: No anxiety and No depression Endo Endocrine: No fatigue or weight change Aller/Imm Allergy/Immunologic: No itchy eyes Prakash/Lymp Hematologic/Lymphatic: No easy bleeding or easy bruising Exam Const General: cooperative and healthy appearing [facility] Head: normal to inspection Ears: hearing grossly normal bilaterally, TM's normal bilaterally and EAC's normal Nose: nasal discharge purulent Face and sinus: sinus tenderness frontal and maxillary Mouth: oral mucosae normal Throat: abnormal tonsil bilaterally erythema and hypertrophy 1+ and postnasal drainage Resp Effort & Inspection: normal respiratory effort Auscultation: Bilateral: Clear to Auscultation Cardio Palpation: normal PMI Rate: regular rate Rhythm: regular rhythm Neuro General: patient alert and CN's II-XI intact bilaterally Psych Appearance: grossly normal Mental Status: mental status grossly normal Assessment and Plan Assessment and Plan (1) Eosinophilic esophagitis: Status: Chronic Plan: Continue Dupixent qwk. We will repeat her upper endoscopy with biopsies throughout the esophagus. At this time she is off of Dupixent as her previous biopsies that showed that she does not have eosinophilic esophagitis at this time. We will continue her on PPI therapy for now. (2) NAFLD (nonalcoholic fatty liver disease): Status: Chronic Plan: Continue vitamin E. She took ursodiol x 6 mos. Update elastography, will contact her with result. 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 This would explain the confirmation that was seen on the biopsies of the small bowel. She will remain on a gluten-free diet and we will titrate her off of budesonide. We will need to repeat scope in the future to see if the inflammation has resolved. (4) IBS (irritable bowel syndrome): Status: Resolved Qualifiers: Irritable bowel syndrome type: without diarrhea Qualified Code(s): K58.9 - Irritable bowel syndrome without diarrhea Plan: Previously bothered by diarrhea, now having constipation. If metamucil doesn't help, can consider Miralax or Fiber Choice tablets or kiwi supplement pills or probiotic. F/u 6 mos I have examined the patient and the H&P has been reviewed. There are no clinical changes since date of exam.
--- NOTE | 2024-09-11 07:20 | PCM.POST.ANE ---
Anesthesia: Postop Eval I Current Vital Signs Temperature: 97 F Pulse Rate: 101 Blood Pressure: 114/72 Respiratory Rate: 16 Pulse Ox: 100 Oxygen Delivery Method: Room Air Assessment Airway patent: Yes Spontaneous unlabored respirations: Yes Mental status: Awake and Calm nausea: No Vomiting: No Anesthesia Complication: No Fluid Hydration Crystalloid volume administer (ml): 90 Total IV fluid infused: 90 Progress Note Anesthesia document: Postop Eval 1 completed: Yes
--- NOTE | 2024-09-11 07:21 | OP.EGD_ITS ---
Patient Name: Prosper Rea Procedure Date: 09/11/2024 6:25 AM Date of : 1990 Age: 33 Procedure: Upper GI endoscopy Indications: Epigastric abdominal pain Providers: Samuel Nunez DO Medicines: Monitored Anesthesia Care Patient Profile: This is a 33 year old female. Refer to note in patient chart for documentation of history and physical. Patient has symptoms of acute epigastric abdominal pain and chronic epigastric abdominal pain. Complications: No immediate complications. Procedure: Pre-Anesthesia Assessment: - Prior to the procedure, a History and Physical was performed, and patient medications and allergies were reviewed. The patient is competent. The risks and benefits of the procedure and the sedation options and risks were discussed with the patient. All questions were answered and informed consent was obtained. Patient identification and proposed procedure were verified by the physician. Mental Status Examination: normal. Prophylactic Antibiotics: The patient does not require prophylactic antibiotics. Prior Anticoagulants: The patient has taken no anticoagulant or antiplatelet agents except for NSAID medication. ASA Grade Assessment: II - A patient with mild systemic disease. After reviewing the risks and benefits, the patient was deemed in satisfactory condition to undergo the procedure. The anesthesia plan was to use monitored anesthesia care (MAC). Immediately prior to administration of medications, the patient was re-assessed for adequacy to receive sedatives. The heart rate, respiratory rate, oxygen saturations, blood pressure, adequacy of pulmonary ventilation, and response to care were monitored throughout the procedure. The physical status of the patient was re-assessed after the procedure. After obtaining informed consent, the endoscope was passed under direct vision. Throughout the procedure, the patient's blood pressure, pulse, and oxygen saturations were monitored continuously. The Colonoscope was introduced through the mouth, and advanced to the second part of duodenum. The upper GI endoscopy was accomplished without difficulty. The patient tolerated the procedure well. Scope In: 6:48:20 AM Scope Out: 6:54:34 AM Total Procedure Duration Time 0 hours 6 minutes 14 seconds Findings: The examined esophagus was normal. Few non-bleeding linear gastric ulcers with no stigmata of bleeding were found in the gastric body. The largest lesion was 5 mm in largest dimension. Biopsies were taken with a cold forceps for histology. Verification of patient identification for the specimen was done. Estimated blood loss was minimal. Patchy mildly erythematous mucosa without active bleeding and with no stigmata of bleeding was found in the duodenal bulb. Biopsies were taken with a cold forceps for histology. Verification of patient identification for the specimen was done. Estimated blood loss was minimal. Impression: - Normal esophagus. - Non-bleeding gastric ulcers with no stigmata of bleeding. Biopsied. - Erythematous duodenopathy. Biopsied. Recommendation: - Discharge patient to home. - Resume previous diet. - Continue present medications. - Await pathology results. - Repeat upper endoscopy in 6 months to check healing. Procedure Code(s): --- Professional --- 58563, Esophagogastroduodenoscopy, flexible, transoral; with biopsy, single or multiple CPT copyright 2021 [employer]. All rights reserved. The codes documented in this report are preliminary and upon integrated logistics programs director review may be revised to meet current compliance requirements. Samuel Nunez DO 09/11/2024 7:20:37 AM This report has been signed electronically. Number of Addenda: 0 Note Initiated On: 09/11/2024 6:25 AM
--- NOTE | 2024-09-11 07:22 | OP.CCLET_ITS ---
09/11/2024 Jadon Lyn [address] [place] [address] Re : Upper GI endoscopy procedure for [facility] Dear Dr. Lyn This procedure was performed on Wednesday, September 11, 2024. My impressions and recommendations are as follows: Impressions : - Normal esophagus. - Non-bleeding gastric ulcers with no stigmata of bleeding. Biopsied. - Erythematous duodenopathy. Biopsied. Recommendations : - Discharge patient to home. - Resume previous diet. - Continue present medications. - Await pathology results. - Repeat upper endoscopy in 6 months to check healing. My findings are described in the full procedure note, which is enclosed. If I can be of further assistance, please feel free to contact me at . Sincerely, Samuel Nunez, 09/11/2024 7:20:37 AM This report has been signed electronically.
--- NOTE | 2024-09-11 07:27 | OP.CCLET_ITS ---
09/11/2024 Jadon Lyn [address] [place] [address] Re : Colonoscopy procedure for [facility] Dear Dr. Lyn This procedure was performed on Wednesday, September 11, 2024. My impressions and recommendations are as follows: Impressions : - The entire examined colon is normal. - Patent end-to-end ileo-colonic anastomosis, characterized by inflammation and ulceration. - Inflammatory bowel disease. Inflammation was found. This was mild in severity. Biopsied. Recommendations : - Discharge patient to home. - Resume previous diet. - Continue present medications. - Await pathology results. - Repeat colonoscopy in 1 year to assess disease activity. My findings are described in the full procedure note, which is enclosed. If I can be of further assistance, please feel free to contact me at . Sincerely, Samuel Nunez, 09/11/2024 7:27:05 AM This report has been signed electronically.
--- NOTE | 2024-09-11 07:27 | OP.COLON_ITS ---
Patient Name: Prosper Rea Procedure Date: 09/11/2024 6:54 AM Date of : 1990 Age: 33 Procedure: Colonoscopy Indications: Crohn's disease of the small bowel, Disease activity assessment of Crohn's disease of the small bowel, Assess therapeutic response to therapy of Crohn's disease of the small bowel Providers: Samuel Nunez DO Medicines: Monitored Anesthesia Care Patient Profile: This is a 33 year old female. Refer to note in patient chart for documentation of history and physical. Patient has symptoms of acute epigastric abdominal pain and chronic epigastric abdominal pain. Last Colonoscopy: within the past 3 years. Complications: No immediate complications. Procedure: Pre-Anesthesia Assessment: - Prior to the procedure, a History and Physical was performed, and patient medications and allergies were reviewed. The patient is competent. The risks and benefits of the procedure and the sedation options and risks were discussed with the patient. All questions were answered and informed consent was obtained. Patient identification and proposed procedure were verified by the physician. Mental Status Examination: normal. Prophylactic Antibiotics: The patient does not require prophylactic antibiotics. Prior Anticoagulants: The patient has taken no anticoagulant or antiplatelet agents except for NSAID medication. ASA Grade Assessment: II - A patient with mild systemic disease. After reviewing the risks and benefits, the patient was deemed in satisfactory condition to undergo the procedure. The anesthesia plan was to use monitored anesthesia care (MAC). Immediately prior to administration of medications, the patient was re-assessed for adequacy to receive sedatives. The heart rate, respiratory rate, oxygen saturations, blood pressure, adequacy of pulmonary ventilation, and response to care were monitored throughout the procedure. The physical status of the patient was re-assessed after the procedure. After I obtained informed consent, the scope was passed under direct vision. Throughout the procedure, the patient's blood pressure, pulse, and oxygen saturations were monitored continuously. The Colonoscope was introduced through the anus and advanced to the ileocolonic anastomosis. The colonoscopy was performed without difficulty. The patient tolerated the procedure well. The quality of the bowel preparation was good. The terminal ileum, ileocecal valve, appendiceal orifice, and rectum were photographed. Scope In: 6:57:04 AM Scope Out: 7:09:43 AM Total Procedure Duration Time 0 hours 12 minutes 39 seconds Findings: The perianal and digital rectal examinations were normal. The colon (entire examined portion) appeared normal. There was evidence of a prior end-to-end ileo-colonic anastomosis in the ascending colon. This was patent and was characterized by inflammation and ulceration. The anastomosis was traversed. Patchy inflammation characterized by aphthous ulcerations was found in the distal ileum and in the terminal ileum. The inflammation was mild in severity. Biopsies were taken with a cold forceps for histology. Verification of patient identification for the specimen was done. Verification of patient identification for the specimen was done. Estimated blood loss was minimal. Impression: - The entire examined colon is normal. - Patent end-to-end ileo-colonic anastomosis, characterized by inflammation and ulceration. - Inflammatory bowel disease. Inflammation was found. This was mild in severity. Biopsied. Recommendation: - Discharge patient to home. - Resume previous diet. - Continue present medications. - Await pathology results. - Repeat colonoscopy in 1 year to assess disease activity. Procedure Code(s): --- Professional --- 35648, Colonoscopy, flexible; with biopsy, single or multiple CPT copyright 2021 [employer]. All rights reserved. The codes documented in this report are preliminary and upon home health provider review may be revised to meet current compliance requirements. Samuel Nunez DO 09/11/2024 7:27:05 AM This report has been signed electronically. Number of Addenda: 0 Note Initiated On: 09/11/2024 6:54 AM
--- NOTE | 2024-09-11 08:12 | PCM.POSTANE2 ---
Anesthesia Postop Eval I Sum Postop Eval Completion status Anesthesia document: Postop Eval 1 completed: Yes Anesthesia Postop Eval I Summary Anesthesia Postop Eval I Summary: Anesthesia Postop Eval I: Assessment Summary Airway patent Yes 09/11/24 07:21 [email or web address] Spontaneous unlabored Yes 09/11/24 07:21 [email or web address] respirations Mental status Awake,Calm 09/11/24 07:21 [email or web address] nausea No 09/11/24 07:21 [email or web address] Vomiting No 09/11/24 07:21 [email or web address] Anesthesia Postop Eval I: Fluid Summary Crystalloid volume administer 90 09/11/24 07:21 [email or web address] (ml) Colloids volume administered ( ml) Blood Product volume administered (ml) Total IV fluid infused 90 09/11/24 07:21 [email or web address] Anesthesia Postop Eval I: Summary Notes Anesthesia Complication No 09/11/24 07:21 [email or web address] Anesthesia Complication Comment: Post-operative progress note Anesthesia: Postop Eval II Evaluation Mental status: Awake Pain Level: 0 nausea: No Vomiting: No
== END 2024-09-11 07:59 | disposition home or self-care (01) ==
LOC: EN 05:22 → AC 05:23
PROVIDERS: Anesthesiology; PCP Family Medicine; Referring Provider Family Medicine; Visit Provider Internal Medicine Gastroenterology
PROC: 0DJD8ZZ Inspection of Lower Intestinal Tract, Via Natural or Artificial Opening Endoscopic (ICD-10-PCS; CPT 45378; principal; 2024-09-11 06:25)
DX: K25.9 Gastric ulcer, unspecified as acute or chronic, without hemorrhage or perforation (principal); K50.00 Crohn's disease of small intestine without complications; K20.0 Eosinophilic esophagitis; Z98.0 Intestinal bypass and anastomosis status; Z79.899 Other long term (current) drug therapy; K76.0 Fatty (change of) liver, not elsewhere classified; Z90.49 Acquired absence of other specified parts of digestive tract; K29.50 Unspecified chronic gastritis without bleeding; K62.89 Other specified diseases of anus and rectum; K21.9 Gastro-esophageal reflux disease without esophagitis
CPT/HCPCS: 45380; 43239; 81025; 88305; 88342; A4216; J2405

== ENCOUNTER → 2024-09-15 | Outpatient (CLI) | payer OTHER, SELFPAY ==
[2024-09-15 09:48] LABS: Absolute Lymphocyte Count 1.91 X10^3/uL (0.83-4.51); Absolute Neutrophil Count 5.3 X10^3/uL (2.0-7.7); Basophil# 0.06 X10^3/uL; Basophil% 0.8 % (0-1); Eosinophil# 0.11 X10^3/uL; Eosinophils% 1.4 % (0-5); Hematocrit 40.9 % (37-47); Hemoglobin 13.8 g/dL (12.0-15.0); Lymphocyte # 1.91 X10^3/ul (0.83-4.51); Lymphocyte % 24.1 % (19-41); Mean Corp Hgb Conc 33.7 g/dL (32-36); Mean Corpuscular Hgb 29.2 pg (27.0-32.0); Mean Corpuscular Volume 86.7 fL (81-99); Mean Platelet Vol. 10.5 fl (6.2-12.0); Monocyte# 0.56 X10^3/uL; Monocyte% 7.1 % (0-10); NRBC Flagged by Analyzer 0 % (0-5); Neutrophil # 5.25 X10^3/uL (2.7-7.7); Neutrophil % 66.1 % (47-70); Platelet Count 324 K/mm3 (150-450); RBC Distribution Width CV 11.9 % (11.6-14.6); RBC Distribution Width SD 37.8 fl (35.1-43.9); Red Blood Count 4.72 M/mm3 (4.2-5.4); White Blood Count 7.9 K/mm3 (4.4-11.0)
[2024-09-15 10:07] LABS: Erythrocyte Sedimentation Rate 3 mm/hr (0-30)
[2024-09-15 10:32] LABS: ALB/GLOB Ratio 1.2 RATIO (0.9-2.4); AST(SGOT) 14 U/L (15-37); Alanine Aminotransfer ALT/SGPT 38 U/L (13-56); Albumin, Serum 4.4 g/dL (3.2-5.0); Alkaline Phosphatase 64 U/L (45-117); Anion Gap 6 (5-15); BUN 8 mg/dL (7-18); BUN/Creat Ratio 9.8 RATIO (10-20); CRP 3.62 mg/L (0.0-3.0); Calcium,Total 9.3 mg/dL (8.5-10.1); Chloride 104 mmol/L (98-107); Creatinine, Serum 0.82 mg/dL (0.55-1.02); EST Glomerular Filtration Rate 86 mL/min (>60); Est Glom Filt Rate - Afr Amer 104 mL/min (>60); Globulin 3.8 g/dL (2.2-4.2); Glucose 114 mg/dL (74-106); Potassium 3.9 mmol/L (3.5-5.1); Protein, Total 8.2 g/dL (6.4-8.2); Sodium Level 137 mmol/L (136-145)
[2024-09-19 16:09] LABS: Alpha-1-Globulins 0.2 g/dL (0.0-0.4); Alpha-2-Globulins 0.9 g/dL (0.4-1.0); Endomysial Antibody IgA Negative (Negative); HEPATITIS B SURFACE AG Negative (Negative); Hep C Antibodies Non Reactive (Non Reactive); Hepatitis A IgM Antibody Negative (Negative); Hepatitis B Core AB IgM Negative (Negative); Immunoglobulin A 57 mg/dL (87-352); Immunoglobulin G 1003 mg/dL (586-1602); Immunoglobulin M 130 mg/dL (26-217); PROEL- TOTAL PROTEIN 7.4 g/dL (6.0-8.5); QNTFERON TB Mitogen Value > 10.00 IU/mL (.); QNTFERON TB Nil Value 0.02 IU/mL (.); QNTFERON TB1+ Ag Value 0.02 IU/mL (.); QNTFERON TB2+ Ag Value 0 IU/mL (.); QNTIFERON TB Positive Criteria Negative (Negative); t-Transglutaminase IgA <2 U/mL (0-3)
== END | disposition home or self-care (01) ==
PROVIDERS: PCP Family Medicine; Referring Provider Internal Medicine Gastroenterology; Visit Provider Internal Medicine Gastroenterology
DX: K90.0 Celiac disease (principal); K50.90 Crohn's disease, unspecified, without complications; K20.0 Eosinophilic esophagitis
CPT/HCPCS: 36415; 80053; 80074; 82784; 83516; 84165; 85025; 85652; 86140; 86255; 86334; 86480

== ENCOUNTER → 2024-09-20 | Outpatient (CLI) | payer OTHER, SELFPAY ==
[2024-09-20 16:20] LABS: Absolute Lymphocyte Count 2.77 X10^3/uL (0.83-4.51); Absolute Neutrophil Count 4.9 X10^3/uL (2.0-7.7); Basophil# 0.06 X10^3/uL; Basophil% 0.7 % (0-1); Eosinophil# 0.11 X10^3/uL; Eosinophils% 1.3 % (0-5); Hematocrit 35.4 % (37-47); Hemoglobin 11.8 g/dL (12.0-15.0); Lymphocyte # 2.77 X10^3/ul (0.83-4.51); Lymphocyte % 32.5 % (19-41); Mean Corp Hgb Conc 33.3 g/dL (32-36); Mean Corpuscular Hgb 29.1 pg (27.0-32.0); Mean Corpuscular Volume 87.4 fL (81-99); Mean Platelet Vol. 10.5 fl (6.2-12.0); Monocyte# 0.67 X10^3/uL; Monocyte% 7.9 % (0-10); NRBC Flagged by Analyzer 0 % (0-5); Neutrophil # 4.87 X10^3/uL (2.7-7.7); Neutrophil % 57.2 % (47-70); Platelet Count 324 K/mm3 (150-450); RBC Distribution Width CV 11.9 % (11.6-14.6); RBC Distribution Width SD 38.4 fl (35.1-43.9); Red Blood Count 4.05 M/mm3 (4.2-5.4); White Blood Count 8.5 K/mm3 (4.4-11.0)
[2024-09-20 16:37] LABS: Erythrocyte Sedimentation Rate 1 mm/hr (0-30)
[2024-09-20 16:44] LABS: Vitamin B12 1472 pg/mL (211-911)
[2024-09-20 16:55] LABS: ALB/GLOB Ratio 1.3 RATIO (0.9-2.4); AST(SGOT) 13 U/L (15-37); Alanine Aminotransfer ALT/SGPT 32 U/L (13-56); Albumin, Serum 4.3 g/dL (3.2-5.0); Alkaline Phosphatase 61 U/L (45-117); Anion Gap 3 (5-15); BUN 10 mg/dL (7-18); BUN/Creat Ratio 12.8 RATIO (10-20); Calcium,Total 9.3 mg/dL (8.5-10.1); Chloride 106 mmol/L (98-107); Creatinine, Serum 0.78 mg/dL (0.55-1.02); EST Glomerular Filtration Rate 90 mL/min (>60); Est Glom Filt Rate - Afr Amer 109 mL/min (>60); Globulin 3.2 g/dL (2.2-4.2); Glucose 100 mg/dL (74-106); Magnesium 2.3 mg/dL (1.6-2.6); Potassium 3.9 mmol/L (3.5-5.1); Protein, Total 7.5 g/dL (6.4-8.2); Sodium Level 138 mmol/L (136-145)
== END | disposition home or self-care (01) ==
LOC: LAB 16:02
PROVIDERS: PCP Family Medicine; Referring Provider Family Medicine; Visit Provider Family Medicine
DX: K50.90 Crohn's disease, unspecified, without complications (principal)
CPT/HCPCS: 36415; 80053; 82607; 82746; 83735; 85025; 85652

== ENCOUNTER → 2024-10-13 | Outpatient (CLI) | payer OTHER, SELFPAY ==
[2024-10-13 17:32] LABS: Absolute Lymphocyte Count 2.96 X10^3/uL (0.83-4.51); Basophil# 0.05 X10^3/uL; Basophil% 0.6 % (0-1); Eosinophil# 0.18 X10^3/uL; Eosinophils% 2.3 % (0-5); Hematocrit 36.4 % (37-47); Lymphocyte # 2.96 X10^3/ul (0.83-4.51); Lymphocyte % 37.4 % (19-41); Mean Corpuscular Hgb 29.1 pg (27.0-32.0); Mean Corpuscular Volume 88.3 fL (81-99); Mean Platelet Vol. 10.5 fl (6.2-12.0); Monocyte# 0.69 X10^3/uL; Monocyte% 8.7 % (0-10); NRBC Flagged by Analyzer 0 % (0-5); Neutrophil # 3.99 X10^3/uL (2.7-7.7); Neutrophil % 50.4 % (47-70); Platelet Count 295 K/mm3 (150-450); RBC Distribution Width CV 12.6 % (11.6-14.6); RBC Distribution Width SD 40.8 fl (35.1-43.9); Red Blood Count 4.12 M/mm3 (4.2-5.4); White Blood Count 7.9 K/mm3 (4.4-11.0)
[2024-10-13 18:03] LABS: BNP,B-Type NATRIURETIC PEPTIDE 5.2 pg/mL (0-100)
[2024-10-13 18:06] LABS: D-Dimer Quantitative (DVT/PE) 0.27 FEU/ug/m (0.27-0.49)
== END | disposition home or self-care (01) ==
LOC: MTLAB 16:21
PROVIDERS: PCP Family Medicine; Referring Provider Family Medicine; Visit Provider Family Medicine
DX: R06.09 Other forms of dyspnea (principal)
CPT/HCPCS: 36415; 83880; 85025; 85379

== ENCOUNTER → 2024-10-23 | Outpatient (CLI) | payer OTHER, SELFPAY ==
--- NOTE | 2024-10-23 10:03 | MRI_ITS ---
STUDY: MR ENTEROGRAPHY WITH CONTRAST REASON FOR EXAM: Female, 33 years old. Crohn''s disease, unspecified, without complications TECHNIQUE: Multipulse sequence MRI performed with IV contrast according to standard MR enterography protocol following administration of oral contrast for maximal bowel distention. Images were obtained from the dome of the diaphragm to the symphysis pubis. clariscan 15ml IV was administered intravenously. TECHNICAL QUALITY: Image Quality: Satisfactory Small Bowel Distension: Adequate. COMPARISON: CT of the pelvis dated April 22, 2011. Right upper quadrant ultrasound dated April 15, 2023 FINDINGS: FINDINGS: Bowel: Bowel wall thickening: Absent. Skip lesions: None. Vascularity: Normal. Enhancement: Normal. Fistula: None. Abscess: None. Other Findings: The visualized lung bases are unremarkable. The visualized portions of the heart are within normal limits. Normal liver. Prior cholecystectomy. Normal spleen. Normal pancreas. Normal bilateral adrenal glands. Normal right kidney. Normal left kidney. Gastrointestinal system: The bowel loops opacified with contrast. Normal visualized stomach. Normal small intestine. Normal colon. There is non-visualization of the appendix. No bowel dilatation is seen. No abnormal wall thickening is present. No visualized colonic diverticula. No visualized stricturing or fistulous connections of the bowel loops. No abnormal adhesions seen between the bowel loops. Normal abdominal aorta. Normal inferior vena cava. Normal retroperitoneum. Normal urinary bladder. Normal visualized uterus and ovaries. Normal abdominal wall. Normal osseous structures. MRI/Enterography Abd/Pel IMPRESSION: 1. Normal MR enterography. 2. No demonstrated skin lesions or narrowing or wall thickening. MR enterography References: Active bowel inflammation causes restricted diffusion on diffusion-weighted images which appears as bright signal. Electronically Signed: Herminio Thurman MD at 11:06 EST ,
[2024-10-23 10:26] VITALS: BP 120/73; PULSE 62; RESP 16; O2SAT 99; BMI 25.8
[2024-10-23] MEDS: Glucagon 1 MG/ML Syringe IV (11:57)
[2024-10-23 12:11] VITALS: BP 126/67; PULSE 66; RESP 14; O2SAT 99
[2024-10-23 12:30] VITALS: BP 152/95; PULSE 99; RESP 18; O2SAT 96
[2024-10-23] MEDS: DiphenhydrAMINE 25 MG Capsule PO (12:50)
[2024-10-23 13:15] VITALS: BP 129/83
--- NOTE | 2024-11-02 16:13 | NURSING ---
MIREYA Naranjo called patient regarding reaction post MRI on 10/23/24. Pt stated she had a rash and hives on her chest and up her neck that she noticed when she was getting changed post MRI with Gadolinium contrast. Pt stated she asked if the reaction was normal at which point the nurse was called back to MRI and Benadryl was administered. Pt stated she was told not to put the contrast as an allergy because she wouldn't be able to have future MRIs if she did. MIREYA Naranjo informed pt that was misinformation and apologized. Pt informed that there is a premedication protocol that can be followed and that if she received contrast in the future without premedication her reaction could be much worse. Pt in agreement to add Gadolinium to her allergy list. MIREYA Naranjo informed pt a pharmacist would be contacted to see if the Glucagon also needed to be added to her allergy list, but that the medication is not used for many common purposes. Pt also informed that if she goes outside of [facility] she will need to remember this allergy as it will not be listed in other systems. Pt states she understands. Gadolinium allergy added.
== END | disposition home or self-care (01) ==
LOC: MRI 09:57
PROVIDERS: PCP Family Medicine; Referring Provider Internal Medicine Gastroenterology; Visit Provider Internal Medicine Gastroenterology
DX: K50.90 Crohn's disease, unspecified, without complications (principal); K90.0 Celiac disease
CPT/HCPCS: 74183; 96374; A9575; J1610

== ENCOUNTER → 2024-10-27 | Outpatient (CLI) | payer OTHER, SELFPAY ==
--- NOTE | 2024-10-27 08:46 | ECHOD_ITS ---
Reason For Study: TRAUMA/INJURY Procedure This was a 2D Doppler, Color Flow transthoracic echocardiogram. Exam performed in department. Left Ventricle Normal left ventricle. The left ventricular ejection fraction is 65 %. No evidence for diastolic dysfunction. Right Ventricle Normal right ventricle. Atria The left and right atria are normal. Mitral Valve Trivial mitral valve insufficiency. Tricuspid Valve Trivial tricuspid valve insufficiency. Normal pulmonary artery pressure. Aortic Valve Trisinus/trileaflet aortic valve. Pulmonic Valve Trivial pulmonic valve insufficiency. Great Vessels Normal sized aortic root. Pericardium/Pleural No pericardial effusion. MMode/2D Measurements & Calculations LVIDd: 3.9 cm IVSd: 0.87 cm LVOT diam: 2.0 cm LVIDs: 2.7 cm LVPWd: 0.95 cm LVOT area: 3.0 cm2 RVDd: 3.3 cm FS: 31.9 % asc Aorta Diam: 2.8 cm LAV(MOD-bp): 35.9 ml LVAd ap4: 22.9 cm2 LAV(MOD-bp) Indexed: 20.0 ml/m2 LVLd ap4: 8.0 cm LAV(MOD-sp2): 37.2 ml EDV(MOD-sp4): 53.6 ml LAV(MOD-sp4): 33.3 ml EDV(sp4-el): 56.0 ml LVAs ap4: 11.2 cm2 LVLs ap4: 6.3 cm ESV(MOD-sp4): 16.8 ml ESV(sp4-el): 16.9 ml EF(MOD-sp4): 68.6 % EF(sp4-el): 69.8 % LVAd ap2: 20.7 cm2 SV(MOD-sp4): 36.8 ml SV(MOD-sp2): 28.9 ml LVLd ap2: 7.7 cm SI(MOD-sp4): 20.5 ml/m2 SI(MOD-sp2): 16.1 ml/m2 EDV(MOD-sp2): 46.8 ml EDV(sp2-el): 47.2 ml LVAs ap2: 11.5 cm2 LVLs ap2: 6.2 cm ESV(MOD-sp2): 17.9 ml ESV(sp2-el): 18.2 ml EF(MOD-sp2): 61.8 % SV(sp4-el): 39.1 ml Ao sinus diam: 2.[address] Junction: 2.3 cm LA dimension(2D): 3.1 cm LA A4 area: 14.6 cm2 RA A4 area: 10.4 cm2 TAPSE: 2.2 cm Time Measurements MV dec time: 0.22 sec Doppler Measurements & Calculations MV E max jabier: 77.3 cm/sec Lat Peak E' Jabier: 15.9 cm/sec Med Peak E' Jabier: 12.8 cm/sec MV A max jabier: 61.6 cm/sec E/E' lat: 4.9 E/E' med: 6.0 MV E/A: 1.3 MV dec slope: 358.5 cm/sec2 Ao V2 max: 139.6 cm/sec LV V1 max: 101.4 cm/sec Ao max P.8 mmHg LV V1 max P.1 mmHg Ao V2 mean: 102.4 cm/sec LV V1 mean P.4 mmHg Ao mean P.5 mmHg LV V1 mean: 72.2 cm/sec Ao V2 VTI: 28.9 cm LV V1 VTI: 21.8 cm AV (velocity ratio): 0.75 LYNNE(I,D): 2.3 cm2 LYNNE(V,D): 2.2 cm2 SV(LVOT): 65.4 ml PA V2 max: 94.0 cm/sec TR max jabier: 150.3 cm/sec TR max P.0 mmHg ECHO/Echo Complete Interpretation Summary The left ventricular ejection fraction is 65 %. No evidence for diastolic dysfunction. Ordering Physician: Sejal Beal Referring Physician: Jadon Lyn MD Performed By: Shelly Jones RDCS
== END | disposition home or self-care (01) ==
PROVIDERS: PCP Family Medicine; Referring Provider Family Medicine; Visit Provider Family Medicine
DX: R06.09 Other forms of dyspnea (principal)
CPT/HCPCS: 93306

== ENCOUNTER → 2024-11-22 | Outpatient (CLI) | payer OTHER, SELFPAY ==
--- NOTE | 2024-11-22 10:17 | NM_ITS ---
PROCEDURE: Nuclear medicine gastric emptying study REASON FOR EXAM: Bloating and abdominal pain. TECHNIQUE: Solid phase gastric emptying study, standard technique. RADIOPHARMACEUTICAL: 1.1 millicurie technetium 99 M sulfur colloid COMPARISON: None. FINDINGS: At 59.5 minutes, 29% gastric emptying is seen. By linear fit, gastric emptying half time is calculated at 99.3 minutes. NM/Gastric Emptying Study IMPRESSION: Normal gastric emptying, with 29% gastric emptying seen at 59.5 minutes. Reading Location: [id number]
== END | disposition home or self-care (01) ==
LOC: NM 10:13
PROVIDERS: PCP Family Medicine; Referring Provider Internal Medicine Gastroenterology; Visit Provider Internal Medicine Gastroenterology
DX: R14.0 Abdominal distension (gaseous) (principal); R10.9 Unspecified abdominal pain
CPT/HCPCS: 78264; A9541

== ENCOUNTER → 2024-12-13 | Outpatient (CLI) | payer OTHER, SELFPAY ==
[2024-12-13 09:59] LABS: ALB/GLOB Ratio 1.7 RATIO (0.9-2.4); AST(SGOT) 21 U/L (<=31); Alanine Aminotransfer ALT/SGPT 34 U/L (<=34); Albumin, Serum 4.6 g/dL (3.5-5.0); Alkaline Phosphatase 48 U/L (35-104); Anion Gap 12 (5-15); BUN 13 mg/dL (4-19); BUN/Creat Ratio 18.4 RATIO (10-20); Chloride 103 mmol/L (98-108); Creatinine, Serum 0.68 mg/dL (0.70-1.20); EST Glomerular Filtration Rate 119 (>60); Globulin 2.7 g/dL (2.2-4.2); Glucose 100 mg/dL (70-99); Potassium 3.9 mmol/L (3.3-5.1); Protein, Total 7.2 g/dL (5.9-8.4); Sodium Level 137 mmol/L (133-145); Total Bilirubin 0.33 mg/dL (0.00-1.30)
[2024-12-13 10:02] LABS: Erythrocyte Sedimentation Rate 1 mm/hr (0-30)
[2024-12-13 10:04] LABS: Absolute Lymphocyte Count 2.41 X10^3/uL (0.83-4.51); Absolute Neutrophil Count 3.7 X10^3/uL (2.0-7.7); Basophil# 0.05 X10^3/uL; Basophil% 0.7 % (0-1); Eosinophil# 0.12 X10^3/uL; Eosinophils% 1.7 % (0-5); Hematocrit 37.4 % (37-47); Hemoglobin 12.3 g/dL (12.0-15.0); Lymphocyte # 2.41 X10^3/ul (0.83-4.51); Lymphocyte % 35.1 % (19-41); Mean Corp Hgb Conc 32.9 g/dL (32-36); Mean Corpuscular Hgb 28.9 pg (27.0-32.0); Mean Corpuscular Volume 87.8 fL (81-99); Mean Platelet Vol. 10.8 fl (6.2-12.0); Monocyte# 0.56 X10^3/uL; Monocyte% 8.2 % (0-10); NRBC Flagged by Analyzer 0 % (0-5); Neutrophil # 3.71 X10^3/uL (2.7-7.7); Platelet Count 290 K/mm3 (150-450); RBC Distribution Width CV 12.2 % (11.6-14.6); RBC Distribution Width SD 39.5 fl (35.1-43.9); Red Blood Count 4.26 M/mm3 (4.2-5.4); White Blood Count 6.9 K/mm3 (4.4-11.0)
[2024-12-13 10:50] LABS: CRP < 3.00 mg/L (0.0-3.0); LDH 169 U/L (84-246)
== END | disposition home or self-care (01) ==
LOC: LAB 09:08
PROVIDERS: PCP Family Medicine; Referring Provider Internal Medicine Gastroenterology; Visit Provider Internal Medicine Gastroenterology
DX: K50.90 Crohn's disease, unspecified, without complications (principal)
CPT/HCPCS: 36415; 80053; 83615; 85025; 85652; 86140

== ENCOUNTER → 2024-12-15 | Outpatient (CLI) | payer OTHER, SELFPAY ==
[2024-12-15 11:00] LABS: Hemoglobin A1c 5.4 % (<=5.6)
[2024-12-15 11:26] LABS: CPK Total, Creatine Kinase 111 U/L (24-195); Cholesterol 180 mg/dL (<=200); High Density Lipoprotein 52 mg/dL; Low Density Lipoprotein Calc. 97 mg/dL; Triglycerides 156 mg/dL; Very Low Density Lipoprotein 31 mg/dL (5-40)
[2024-12-15 11:32] LABS: Erythrocyte Sedimentation Rate 2 mm/hr (0-30)
[2024-12-15 12:46] LABS: CRP < 3.00 mg/L (0.0-3.0); Follicle Stimulating Hormone 3.6 mIU/mL; Free T3 3.2 pg/mL (2.18-3.98); Luteinizing Hormone 5.4 mIU/mL
[2024-12-15 13:04] LABS: LDH 162 U/L (84-246)
[2024-12-15 18:30] LABS: CORTISOL PM 5.31 ug/dL (2.68-10.50)
== END | disposition home or self-care (01) ==
PROVIDERS: PCP Family Medicine; Referring Provider Internal Medicine Gastroenterology; Visit Provider Internal Medicine Gastroenterology
DX: K50.90 Crohn's disease, unspecified, without complications (principal); K90.9 Intestinal malabsorption, unspecified
CPT/HCPCS: 36415; 80061; 82085; 82384; 82533; 82550; 82672; 83001; 83002; 83036; 83525; 83615; 84402; 84403; 84439; 84443; 84481; 85652; 86140

== ENCOUNTER → 2025-01-03 | Outpatient (CLI) | payer OTHER, SELFPAY ==
[2025-01-03 17:02] LABS: Vitamin D,25 Hydroxy 28.8 ng/mL (30-100)
== END | disposition home or self-care (01) ==
LOC: BWCLAB 14:37
PROVIDERS: PCP Family Medicine; Referring Provider Nurse Practitioner Women's Health; Visit Provider Nurse Practitioner Women's Health
DX: R53.83 Other fatigue (principal)
CPT/HCPCS: 36415; 82306

== ENCOUNTER → 2025-02-12 | Outpatient (CLI) | payer OTHER, SELFPAY ==
--- NOTE | 2025-02-12 10:28 | RAD_ITS ---
PROCEDURE: CHEST PA AND LATERAL 02/12/2025 REASON FOR EXAM: ARTHRITIS IN CROHN'S DISEASE TECHNIQUE: Frontal and lateral views of the chest. FINDINGS: The lungs appear clear. Pulmonary vascularity appears within limits. No pleural effusion. The cardiac and mediastinal contours appear within limits. Mild S shaped thoracolumbar curvature. RAD/Chest PA and Lateral IMPRESSION: No evidence of acute disease. Reading Location: [id number]
[2025-02-12 12:34] LABS: Absolute Lymphocyte Count 1.94 X10^3/uL (0.83-4.51); Absolute Neutrophil Count 3.2 X10^3/uL (2.0-7.7); Basophil# 0.05 X10^3/uL; Basophil% 0.9 % (0-1); Eosinophil# 0.09 X10^3/uL; Eosinophils% 1.5 % (0-5); Hematocrit 37.1 % (37-47); Hemoglobin 12.4 g/dL (12.0-15.0); Lymphocyte # 1.94 X10^3/ul (0.83-4.51); Lymphocyte % 33.2 % (19-41); Mean Corp Hgb Conc 33.4 g/dL (32-36); Mean Corpuscular Hgb 29.2 pg (27.0-32.0); Mean Corpuscular Volume 87.5 fL (81-99); Mean Platelet Vol. 10.7 fl (6.2-12.0); Monocyte# 0.54 X10^3/uL; Monocyte% 9.2 % (0-10); NRBC Flagged by Analyzer 0 % (0-5); Neutrophil % 54.9 % (47-70); Platelet Count 270 K/mm3 (150-450); RBC Distribution Width CV 12.5 % (11.6-14.6); Red Blood Count 4.24 M/mm3 (4.2-5.4); White Blood Count 5.8 K/mm3 (4.4-11.0)
[2025-02-12 12:50] LABS: Erythrocyte Sedimentation Rate 1 mm/hr (0-30)
[2025-02-12 13:50] LABS: ALB/GLOB Ratio 1.7 RATIO (0.9-2.4); AST(SGOT) 27 U/L (<=31); Alanine Aminotransfer ALT/SGPT 50 U/L (<=34); Albumin, Serum 4.7 g/dL (3.5-5.0); Alkaline Phosphatase 54 U/L (35-104); Anion Gap 11 (5-15); BUN 7 mg/dL (4-19); BUN/Creat Ratio 9.9 RATIO (10-20); Calcium,Total 9.3 mg/dL (7.6-11.0); Chloride 105 mmol/L (98-108); EST Glomerular Filtration Rate 116 (>60); Globulin 2.8 g/dL (2.2-4.2); Glucose 95 mg/dL (70-99); Potassium 4.1 mmol/L (3.3-5.1); Protein, Total 7.5 g/dL (5.9-8.4); Sodium Level 139 mmol/L (133-145)
[2025-02-12 13:54] LABS: CRP < 3.00 mg/L (0.0-3.0)
[2025-02-15 04:07] LABS: QNTFERON TB Mitogen Value > 10.00 IU/mL (.); QNTFERON TB Nil Value 0.07 IU/mL (.); QNTFERON TB1+ Ag Value 0.05 IU/mL (.); QNTFERON TB2+ Ag Value 0.06 IU/mL (.); QNTIFERON TB Positive Criteria Negative (Negative)
== END | disposition home or self-care (01) ==
PROVIDERS: PCP Family Medicine; Referring Provider Internal Medicine Rheumatology; Visit Provider Internal Medicine Rheumatology
DX: M07.60 Enteropathic arthropathies, unspecified site (principal); K50.90 Crohn's disease, unspecified, without complications
CPT/HCPCS: 36415; 71046; 80053; 85025; 85652; 86140; 86480

== ENCOUNTER → 2025-06-08 | Outpatient (CLI) | payer OTHER, SELFPAY ==
[2025-06-08 10:34] LABS: Hematocrit 35.1 % (37-47); Hemoglobin 11.9 g/dL (12.0-15.0); Immature Granulocytes Count 0.010 X10^3/uL (0.0-0.0); Mean Corp Hgb Conc 33.9 g/dL (32-36); Mean Corpuscular Volume 86.7 fL (81-99); Mean Platelet Vol. 11.1 fl (6.2-12.0); NRBC Flagged by Analyzer 0 % (0-5); Platelet Count 256 K/mm3 (150-450); RBC Distribution Width CV 12.4 % (11.6-14.6); RBC Distribution Width SD 39.6 fl (35.1-43.9); Red Blood Count 4.05 M/mm3 (4.2-5.4); White Blood Count 6.3 K/mm3 (4.4-11.0)
[2025-06-08 11:08] LABS: AST(SGOT) 20 U/L (<=31); Alanine Aminotransfer ALT/SGPT 28 U/L (<=34); Albumin, Serum 4.4 g/dL (3.5-5.0); Alkaline Phosphatase 53 U/L (35-104); Anion Gap 12 (5-15); BUN 8 mg/dL (4-19); BUN/Creat Ratio 11.9 RATIO (10-20); Calcium,Total 9.0 mg/dL (7.6-11.0); Carbon Dioxide 21.6 mmol/L (21.0-32.0); Chloride 105 mmol/L (98-108); Globulin 2.6 g/dL (2.2-4.2); Glucose 98 mg/dL (70-99); Potassium 3.8 mmol/L (3.3-5.1); Vitamin D,25 Hydroxy 37.4 ng/mL (30-100)
== END | disposition home or self-care (01) ==
PROVIDERS: Nurse Practitioner Women's Health; PCP Family Medicine; Referring Provider Internal Medicine Rheumatology; Visit Provider Internal Medicine Rheumatology
DX: K50.90 Crohn's disease, unspecified, without complications (principal); D80.2 Selective deficiency of immunoglobulin A [IgA]; K76.0 Fatty (change of) liver, not elsewhere classified; M07.60 Enteropathic arthropathies, unspecified site; E55.9 Vitamin D deficiency, unspecified
CPT/HCPCS: 36415; 80053; 82306; 85025

== ENCOUNTER → 2025-09-28 | Outpatient (CLI) | payer OTHER, SELFPAY ==
--- OUTSIDE RECORDS SUMMARY | 2025-09-28 09:34 | XMS RPT_ITS | CCD ---
Author Organization [facility] Care Team Providers Care Candle Cutter Name Role Phone CHRISSY, DR JARRED [place] Attending Unavaila ble CHRISSY, DR JARRED [place] Primary Care Unavaila ble CHRISSY, DR JARRED [place] Admitting Unavaila ble CHRISSY, DR JARRED [place] Attending Unavaila ble CHRISSY, DR JARRED [place] Primary Care Unavaila ble CHRISSY, DR JARRED [place] Admitting Unavaila Dr. Ambreen Coyle Primary Care Provider Dr. Ambreen Lyn Referring Provider [phone] Dr. Kj Leija Attending Provider Dr. Kj Leija Other Provider Hunter PROFESSOR OF LATIN [employer] STUDIES, PROFESSOR OF LAT[employer] STUDIES-C Marcia Rea Attending Provider [phone] Dr. Ambreen Lyn Primary Care Provider [phone] Dr. Ambreen Lyn Referring Provider [phone] Dr. Kj Leija Attending Provider [phone] Kj Leija Other Provider Hunter PROFESSOR OF LAT[employer] STUDIES, PROFESSOR OF LAT[employer]UDIES-C Marcia Rea Attending Provider JEANNINE Muñiz Attending Provider [phone] Dr. Ambreen Lyn Primary Care Provider [phone] Dr. Ambreen Lyn Referring Provider [phone] JEANNINE Perdomo Attending Provider Catherine Adair MD Primary Care Provider Hunter PROFESSOR OF LAT[employer] STUDIES, PROFESSOR OF LAT[employer] STUDIES-C Marcia Rea Attending Provider Dr. Natasha Lindsey Attending Provider Dr. Ambreen Lyn Primary Care Provider Dr. Ambreen Lyn Referring Provider Friend, Dr. Baker Attending Provider Jennifer PAEZ, PA Rj Rea Attending Provider Hugo PAEZ, PA Pradeep Attending Provider Friend, Dr. Baker Other Provider Dr. Ambreen Lyn Primary Care Provider Dr. Ambreen Lyn Referring Provider JEANNINE Muñiz Attending Provider Friend, Dr. Baker Attending Provider Friend, Dr. Baker Other Provider JEANNINE Yip Attending Provider AMBREEN LYN Primary Care Unavailable JONATHAN MCCORMICK Attending Unavailable Felix SNOW GROOMER.CONSULTING SOLUTION MANAGER, Naz Unavailable Susan SNOW GROOMER.STAFF ATTORNEY, Jessica Unavailable Ambreen Lyn MD Primary Care Provider awaoscar DO, Alla Unavailable Dr. Ambreen Lyn MD Primary Care Provider Dr. Ambreen Lyn MD Referring Provider Dr. Samuel Nunez DO Attending Provider [place] PROFESSOR OF LATIN AMERICAN STUDIES-CMaryjo Attending Provider Dr. Samuel Nunez DO Other Provider Dr. Samuel Nunez DO Referring Provider Dr. Ambreen Lyn MD Attending Provider [phone] Sejal Beal MD Attending Provider Dr. Sejal Beal MD Referring Provider Arnie SANZ, Dr. Shelby Attending Provider Bravo SANZ, Dr. Mireles Attending Provider Dr. Amrbeen Lyn MD Primary Care Provider Riki SANZ, Dr. Diop Referring Provider Enrique SORTO, Dr. Baker Attending Provider Finger PROFESSOR OF LAT[employer] STUDIES-C, Uma Attending Provider Flavia PROFESSOR OF LAT[employer] STUDIES-C, Uma Referring Provider Susan SNOW GROOMER.STAFF ATTORNEY, Jessica Unavailable THANH MONREAL Referring Unavailable LYNAMBREEN A Primary Care Unavailable SHAYY STORY Attending Unavailable Riki SANZ, Dr. Diop Primary Care Provider Enrique SORTO, Dr. Baker Attending Provider Enrique SORTO, Dr. Baker Referring Provider Lian SANZ, Dr. Sejal Ballesteros Attending Provider Lian SANZ, Dr. Sejal Ballesteros Referring Provider Riki SANZ, Dr. Diop Referring Provider Adeline SANZ, Dr. Zuñiga Attending Provider Adeline SANZ, Dr. Zuñiga Referring Provider Riki SANZ, Dr. Diop Primary Care Provider Riki SANZ, Dr. Diop Referring Provider Rosalia SANZ, Dr. Kaur Attending Provider [phone] RIKI, AMBREEN A Primary Care Unavailable SINDHU GATES Attending Unavailable SHAYY STORY Referring Unavailable AMBREEN LYN A Primary Care Unavailable RIKI, AMBREEN A Primary Care Unavailable SHAYY STORY Referring Unavailable Riki SANZ, Dr. Diop Primary Care Provider Adeline SANZ, Dr. Zuñiga Attending Provider Adeline SANZ, Dr. Zuñiga Referring Provider Flavia PROFESSOR OF LAT[employer]UDIES-C, Uma Other Provider Afsaneh Gaitan Attending Unavailable Lyn, Ambreen Primary Care Unavailable Lyn, Ambreen Primary Care Unavailable Lyn, Ambreen Referring Unavailable Finger PROFESSOR OF LAT[employer] STUDIES, Uma Attending Unavailable Friend, Samuel Attending Unavailable Lyn, Ambreen Primary Care Unavailable Lyn, Ambreen Referring Unavailable Friend, Samuel Referring Unavailable Lyn, Ambreen Primary Care Unavailable Friend, Samuel Attending Unavailable Friend, Samuel Attending Unavailable Friend, Samuel Referring Unavailable Lyn, Ambreen Primary Care Unavailable Friend, Samuel Referring Unavailable Lyn, Ambreen Consulting Unavailable Lyn, Ambreen Primary Care Unavailable Friend, Samuel Attending Unavailable Ludy Whitney Consulting Unavailable Friend, Samuel Referring Unavailable Lyn, Ambreen Primary Care Unavailable Friend, Samuel Attending Unavailable Lyn, Ambreen Primary Care Unavailable Lyn, Ambreen Referring Unavailable Natasha Lindsey Attending Unavailable Lyn, Ambreen Primary Care Unavailable Lyn, Ambreen Referring Unavailable Maryjo Chowdhury Attending Unavailable Friend, Samuel Attending Unavailable Lyn, Ambreen Referring Unavailable Lyn, Ambreen Primary Care Unavailable Lyn, Ambreen Primary Care Unavailable Lyn, Ambreen Referring Unavailable Friend, Samuel Attending Unavailable Friend, Samuel Attending Unavailable Friend, Samuel Consulting Unavailable Lyn, Ambreen Primary Care Unavailable Lyn, Ambreen Referring Unavailable Lyn, Ambreen Referring Unavailable Chi Cordon Attending Unavailable Lyn, Ambreen Primary Care Unavailable Ludy Whitney Referring Unavailable Ludy Whitney Attending Unavailable Lyn, Ambreen Primary Care Unavailable Lyn, Ambreen Primary Care Unavailable Flavia PROFESSOR OF LAT[employer] STUDIES, Uma Referring Unavailable Flavia PROFESSOR OF LAT[employer] STUDIES, Uma Attending Unavailable Lyn, Ambreen Primary Care Unavailable Lyn, Ambreen Referring Unavailable Friend, Samuel Attending Unavailable Lyn, Ambreen Primary Care Unavailable Vellanki, Zara Referring Unavailable Vellanki, Zara Attending Unavailable Lyn, Ambreen Primary Care Unavailable Vellanki, Zara Referring Unavailable Vellanki, Zara Attending Unavailable Flavia PROFESSOR OF LAT[employer] STUDIES, Uma Consulting Unavailable Friend, Samuel Attending Unavailable Friend, Samuel Referring Unavailable Lyn, Ambreen Primary Care Unavailable Friend, Samuel Referring Unavailable Friend, Samuel Attending Unavailable Lyn, Ambreen Primary Care Unavailable Friend, Samuel Attending Unavailable Friend, Samuel Referring Unavailable Lyn, Ambreen Primary Care Unavailable Lyn, Ambreen Referring Unavailable Lyn, Ambreen Attending Unavailable Lyn, Ambreen Primary Care Unavailable Lyn, Ambreen Primary Care Unavailable Sejal Beal S Referring Unavailable Sejal Beal S Attending Unavailable Lyn, Ambreen Primary Care Unavailable Jolliff, Sejal S Referring Unavailable Jojessica, Sejal S Attending Unavailable Allergies Allergy Classification Reported Allergen(s) Allergy Type Date of Onset Reaction(s) Facility (20 sources) Morphine; Translations: [MORPHINE] Drug Allergy 1 Swelling [facility] (6 sources) Gadolinium-MRI Contrast Medium Allergy to substance 5 Hives [facility] Comment on above: rash/hives on chest post-MRI with glucagon and gadolinium contrast. Reaction more likely from gadolinium than glucagon. (1 source) GADOLINIUM-CONTA INING CONTRAST MEDIA; Translations: [GADOLINIUM-CONT AINING CONTRAST MEDIA] Propensity to adverse reactions to drug (disorder) 5 [facility] (1 source) Morphine Drug Allergy 5 [facility] (1 source) Gadolinium-MRI Contrast Medium Drug allergy (disorder) 5 [facility] Medications Current Medications Medication Drug Class(es) Dates Sig (Normalized) Sig (Original) Ascorbic Zgsl-Qhfiybio-Ffh (Emergen-C Immune Plus) 1,000 mg powder effervescent in packet (12 sources) Start: 11-15-2024 Ascorbic Yazw-Alalvqvd-Edo (Emergen-C Immune Plus) 1,000 mg powder effervescent in packet Active 1 NMA PO DAILY as needed November 15, 2024 2:03pm Start: 09-06-2024 End: 11-15-2024 Ascorbic Ehjp-Ybxrylay-Tsr ( Emergen-C Immune Plus) 1,000 mg powder effervescent in packet Discontinued 1 NMA PO DAILY September 06, 2024 1:00am November 15, 2024 2:04pm cholecalciferol 0.025 mg oral capsule (20 sources) Vitamin D Start: 10-31-2021 take 1 capsule by mouth once daily Cholecalciferol (Vitamin D3) 25 mcg (1,000 unit) capsule Active 25 ug PO DAILY October 31, 2021 1:00am fexofenadine (3 sources) Histamine-1 Receptor Antagonist fexofenadine HCl (WILLOW ALLERGY ORAL) Take by mouth. Active magnesium oxide 200 mg oral tablet (3 sources) magnesium oxide 200 mg magnesium tab Take by mouth. Active meclizine hydrochloride 25 mg oral tablet (3 sources) Antiemetic Start: 09-26-2022 take 25 mg by mouth twice daily Meclizine Active 25 MG PO TWICE A DAY September 26, 2022 1:00am omeprazole 40 mg delayed release oral capsule (20 sources) Proton Pump Inhibitor Start: 11-10-2024 take 1 capsule by mouth once daily Omeprazole 40 mg capsule,delayed release(DR/EC) Active 40 mg PO daily November 10, 2024 12:23pm Start: 10-06-2024 take 1 capsule by [facility] every twelve hours omeprazole (PRILOSEC) 40 mg capsule Take 1 capsule by mouth every 12 hours. 10/06/2024 Active Start: 10-22-2023 End: 11-10-2024 take 1 capsule by mouth twice daily Omeprazole 40 mg capsule,delayed release(DR/EC) Discontinued 40 mg PO TWICE A DAY 60 2 October 12, 2024 10:45am November 10, 2024 12:24pm Start: 09-01-2022 End: 09-18-2023 Omeprazole Magnesium (Prilos ec Otc) 20 mg tablet,delayed release (DR/EC) Discontinued 40 mg PO DAILY 60 30 0 August 19, 2023 2:59pm September 17, 2023 1:00am September 18, 2023 1:23am Start: 07-03-2022 End: 09-01-2022 take 1 tablet by mouth once daily Omeprazole Magnesium (Prilosec Otc) 20 mg tablet,delayed release (DR/EC) Discontinued 20 mg PO DAILY July 03, 2022 12:00am September 01, 2022 2:14pm vitamin e 180 mg oral capsule (14 sources) Start: 11-10-2024 take 1 capsule by mouth once daily Vitamin E 268 mg (400 unit) capsule Active 268 mg PO daily November 10, 2024 12:23pm Start: 12-01-2023 End: 11-10-2024 take 1 capsule by mouth twice daily Vitamin E 268 mg (400 unit) capsule Discontinued 268 mg PO TWICE A DAY December 01, 2023 1:00am November 10, 2024 12:24pm zinc acetate 50 mg oral caps ule (3 sources) Zinc Acetate, Or al, 50 mg (zinc) cap Take by mouth. Active Completed/Discontinued Medications Medication Drug Class(es) Dates Sig (Normalized) Sig (Original) acetaminophen 325 mg / HYDROcodone bitartrate 5 mg oral tablet (20 sources) Opioid Agonist Start: 05-01-2020 End: 05-03-2020 Hydrocodone-Acetamino phen 1 TABLET tablet Discontinued 1 {tbl} PO EVERY 6 HOURS NEEDED as needed for Pain 5 2 0 May 01, 2020 May 02, 2020 12:00am May 03, 2020 12:03am Postoperative pain Other acute postprocedural pain Start: 05-01-2020 End: 05-03-2020 take 1 tablet by mouth every six hours as needed Hydrocodone-Acetaminophen Discontinued 1 TABLET PO EVERY 6 HOURS NEEDED 5 2 May 01, 2020 May 03, 2020 12:03am amoxicillin 875 mg oral tablet (20 sources) Penicillin-class Antibacterial Start: 09-09-2024 End: 09-14-2024 take 1 tablet by mouth twice daily Amoxicillin 875 mg tablet Discontinued 875 mg PO TWICE A DAY 10 5 September 09, 2024 1:00am September 13, 2024 1:00am September 14, 2024 1:09am Start: 01-24-2024 End: 02-24-2024 take 1 tablet by mouth three times daily Amoxicillin 500 mg tablet Discontinued 500 mg PO THREE TIMES A DAY 30 January 24, 2024 12:00am February 24, 2024 9:37am Start: 01-03-2023 End: 01-13-2023 take 1 tablet by mouth twice daily Amoxicillin 500 mg tablet Discontinued 500 mg PO TWICE A DAY 20 January 03, 2023 12:00am January 12, 2023 12:00am January 13, 2023 12:04am amoxicillin 875 mg / clavulanate 125 mg oral tablet (14 sources) Penicillin-class Antibacterial Start: 09-09-2023 End: 09-19-2023 Amoxicillin-Pot Clavulanate 875-125 mg tablet Discontinued 1 {tbl} PO Q12H 20 10 September 09, 2023 1:00am September 18, 2023 1:00am September 19, 2023 1:04am Acute sinusitis, unspecified Start: 09-09-2023 End: 09-19-2023 take 1 tablet by mouth every twelve hours Amoxicillin-Pot Clavulanate Discontinued 1 TABLET PO Q12H 20 September 09, 2023 1:00am September 19, 2023 1:04am Start: 02-15-2023 End: 02-22-2023 take 1 tablet by mouth twice daily at mealtime amoxicillin-clavulanic acid (AUGMENTIN) 875-125 mg per tablet Indications: Bacterial sinusitis Take 1 tablet by mouth twice daily with meals for 7 days. 14 tablet 0 02/15/2023 02/22/2023 Active Comment on above: Take 1 tablet by madyson twice daily with meals for 7 days. azithromycin 250 mg oral tablet (17 sources) Macrolide Antimicrobial Start: End: take 2-5 tablets by mouth once daily Azithromycin 250 mg tablet Discontinued 0 PO .COMPLEX 6 0 August 21, 2022 1:00am September 01, 2022 2:13pm take 500 mg today (day 1), then 250 mg for 4 days (days 2-5) PO budesonide 3 mg delayed release oral capsule (6 sources) Corticosteroid Start: End: take 3 capsules by mouth once daily Budesonide 3 mg capsule,delayed,exte nd.release Discontinued 9 mg PO DAILY 90 3 February 18, 2024 12:00am August 30, 2024 4:44pm cholestyramine resin 4000 mg powder for oral suspension (18 sources) Bile Acid Sequestrant Start: End: take 1 dose by mouth three times daily Cholestyramine (With Sugar) 4 gram powder in packet Discontinued 4 g PO THREE TIMES A DAY 90 0 July 03, 2022 12:00am July 23, 2022 5:07pm administer w/meal; avoid other meds within 1hr before or 4-6hr after dose colestipol hydrochloride 1000 mg oral tablet (18 sources) Bile Acid Sequestrant Start: End: Colestipol 1 gram tablet Discontinued 1 g PO TWICE A DAY 60 2 July 07, 2022 12:00am July 23, 2022 5:11pm diarrhea dicyclomine hydrochloride 20 mg oral tablet (20 sources) Anticholinergic Start: End: take 1 tablet by mouth three times daily Dicyclomine 20 mg tablet Discontinued 20 mg PO THREE TIMES A DAY 21 7 0 October 09, 2024 1:00am October 15, 2024 1:00am October 16, 2024 1:11am Start: 07-23-2022 End: 08-30-2023 take 1 capsule by mouth twice daily Dicyclomine 10 mg capsule Discontinued 10 mg PO TWICE A DAY 60 July 23, 2022 12:00am August 30, 2023 3:00pm On Hold: None doxycycline hyclate 100 mg oral capsule (14 sources) Tetracycline-class Drug Start: 03-01-2023 End: 08-30-2023 take 1 capsule by mouth twice daily Doxycycline Hyclate 100 mg capsule Discontinued 100 mg PO TWICE A DAY 20 March 01, 2023 12:00am August 30, 2023 3:00pm 2 ml dupilumab 150 mg/ml prefilled syringe (20 sources) Interleukin-4 Receptor alpha Antagonist Start: 01-20-2023 End: 01-21-2023 Dupilumab (Dupixent Syringe) 300 mg/2 mL syringe Discontinued 300 mg SC EVERY WEEK 24 January 20, 2023 12:00am January 21, 2023 9:32am dupilumab (DUPIXENT SYRINGE) 100 mg/0.67 mL syringe (3 sources) End: 10-27-2024 dupilumab (DUPIXENT SYRINGE) 100 mg/0.67 mL syringe Inject 100 mg subcutaneously every 2 weeks. 10/27/2024 Discontinued (Other) dupilumab (DUPIX ENT SYRINGE) 100 mg/0.67 mL syringe Inject 100 mg subcutaneously every 2 weeks. 0 Active Comment on above: Inject 100 mg subcut aneously every 2 weeks. Lactobacillus Combination No.4 (Probiotic) 3 billion cell Capsule (20 sources) Start: End: take 3 capsules by mouth once daily Lactobacillus Combination No.4 (Probiotic) 3 billion cell Capsule Discontinued 3000 NMA PO DAILY June 11, 2022 12:00am March 20, 2024 8:44am administer with a meal Start: 06-11-2022 take 3 capsules by m outh once daily Lactobacillus Combination No.4 (Probiotic) 3 billion cell Capsule Active 3000 MMU CELLS PO DAILY June 10, 2022 11:00pm administer with a meal Start: 06-11-2022 take 3 capsules by m outh once daily Lactobacillus Combination No.4 (Probiotic) 3 billion cell Capsule Active 3000 MMU CELLS PO DAILY June 11, 2022 12:00am administer with a meal mesalamine 1200 mg delayed release oral tablet (7 sources) Aminosalicylate Start: 12-08-2023 End: 02-18-2024 take 2 tablets by mouth once daily Mesalamine (Lialda) 1.2 gram tablet,delayed release (DR/EC) Discontinued 2.4 g PO DAILY 60 30 3 December 08, 2023 1:00am February 18, 2024 10:45am metFORMIN hydrochloride 500 mg oral tablet (20 sources) Biguanide Start: 09-14-2023 End: 03-20-2024 Metformin 500 mg tablet Discontinued 250 mg PO DAILY September 14, 2023 1:00am March 20, 2024 8:44am Start: 09-14-2023 take 250 mg by mouth once roverto y Metformin Active 250 MG PO DAILY September 14, 2023 1:00am Start: 12-29-2021 End: 08-21-2022 take 1 tablet by mouth once daily Metformin 500 mg tablet Discontinued 500 mg PO DAILY December 29, 2021 12:00am August 21, 2022 12:38pm methylPREDNISolone 4 mg oral tablet (20 sources) Corticosteroid Start: 02-24-2024 End: 02-28-2024 take 1 tablet by mouth once Methylprednisolone (Medrol (Akin)) 4 mg tablets,dose pack Discontinued 4 mg PO per package directions 21 6 0 February 24, 2024 12:00am February 29, 2024 12:00am February 28, 2024 9:04am Start: 08-21-2022 End: 08-27-2022 take 1 tablet by mouth once Methylprednisolone (Medrol (Akin)) 4 mg tablets,dose pack Discontinued 4 mg PO per package directions 21 6 0 August 21, 2022 1:00am August 26, 2022 1:00am August 27, 2022 1:04am nitrofurantoin, macrocrystals 25 mg / nitrofurantoin, monohydrate 75 mg oral capsule (20 sources) Nitrofuran Antibacterial Start: 10-30-2020 End: 11-04-2020 take 1 capsule by mouth every twelve hours at mealtime Nitrofurantoin Monohyd/M-Cryst (Macrobid) 100 mg capsule Discontinued 100 mg PO Q12H 10 5 0 October 30, 2020 1:00am November 03, 2020 1:00am November 04, 2020 1:03am must administer with a meal/food ondansetron 4 mg disintegrating oral tablet (15 sources) Serotonin-3 Receptor Antagonist Start: 09-26-2022 End: 08-30-2023 take 1 tablet by mouth every eight hours as needed for nausea and vomiting Ondansetron 4 mg tablet,disintegrati ng Discontinued 4 mg PO Q8H as needed for nausea and vomiting 14 0 September 26, 2022 1:00am August 30, 2023 3:00pm phentermine hydrochloride 30 mg oral capsule (6 sources) Sympathomimetic Amine Anorectic Start: 12-18-2024 End: 01-03-2025 take 1 capsule by mouth once daily 2 hour(s) after breakfast Phentermine 30 mg capsule Discontinued 30 mg PO daily December 18, 2024 12:00am January 03, 2025 2:25pm must administer 2 hours after breakfast Vit No.390-Tucu-Lduur ( Vitamin) 27 mg iron- 800 mcg tablet (20 sources) Start: 06-09-2022 End: 08-21-2022 Vit No.442-Xklo-Hlaty ( Vitamin) 27 mg iron- 800 mcg tablet Discontinued 1 NMA PO DAILY June 09, 2022 12:00am August 21, 2022 12:39pm Start: 06-09-2022 End: 08-21-2022 Vit No.498-Ifuv-Uet ic ( Vitamin) 27 mg iron- 800 mcg tablet Discontinued 1 EACH PO DAILY June 09, 2022 12:00am August 21, 2022 12:39pm Start: 06-09-2022 End: 08-21-2022 Vit No.006-Kkqu-Puz ic ( Vitamin) 27 mg iron- 800 mcg tablet Discontinued 1 EACH PO DAILY June 08, 2022 11:00pm August 21, 2022 11:39am Start: 06-09-2022 Vit N o.138-Amrh-Swfnd ( Vitamin) 27 mg iron- 800 mcg tablet Active 1 EACH PO DAILY June 09, 2022 12:00am promethazine hydrochloride 25 mg oral tablet (20 sources) Phenothiazine Start: 08-30-2019 End: 11-27-2019 take 1 tablet by mouth every six hours as needed for nausea Promethazine 25 MG tablet Discontinued 25 mg PO EVERY 6 HOURS NEEDED as needed for Nausea/Emesis 20 August 30, 2019 1:00am November 27, 2019 2:57pm pyridoxine (6 sources) Start: 11-10-2024 End: 01-03-2025 take 1 tablet by mouth three times daily Pyridoxine (Vitamin B6) 50 mg tablet Discontinued 50 mg PO THREE TIMES A DAY November 10, 2024 1:00am January 03, 2025 2:25pm Start: 11-10-2024 take 1 tablet by madyson th three times daily Pyridoxine (Vitamin B6) 50 mg tablet Active 50 mg PO THREE TIMES A DAY November 10, 2024 1:00am sulfamethoxazole 800 mg / trimethoprim 160 mg oral tablet (20 sources) Dihydrofolate Reductase Inhibitor Antibacterial, Sulfonamide Antimicrobial Start: 05-17-2019 End: 08-15-2019 Sulfamethoxazole-Trimethopri m 1 TABLET tablet Discontinued 1 {tbl} PO TWICE A DAY 6 May 17, 2019 12:00am August 15, 2019 2:03pm Start: 05-17-2019 End: 08-15-2019 take 1 tablet by mouth twice daily Sulfamethoxazole-Trimethoprim Discontinu ed 1 TABLET PO TWICE A DAY May 17, 2019 12:00am August 15, 2019 2:03pm topiramate 25 mg oral tablet (6 sources) Start: 12-18-2024 End: 01-03-2025 take 1 tablet by mouth at bedtime Topiramate 25 mg tablet Discontinued 25 mg PO AT BEDTIME 30 2 December 18, 2024 12:00am January 03, 2025 2:25pm ursodiol 250 mg oral tablet (16 sources) Bile Acid Start: 09-01-2022 End: 03-01-2023 take 1 tablet by mouth twice daily Ursodiol 250 mg tablet Discontinued 250 mg PO TWICE A DAY September 01, 2022 1:00am March 01, 2023 2:07pm 1 ml ustekinumab 90 mg/ml prefilled syringe (15 sources) Interleukin-12 Antagonist, Interleukin-23 Antagonist Start: 09-29-2024 End: 05-07-2025 Ustekinumab (Stelara) 90 mg/mL syringe Discontinued 90 mg SC every 8 weeks 10 16October 02, 2024 12:28pm May 07, 2025 1:26pm Problems Active Problems Problem Classification Problem Date Documented Da te Episodic/Chronic Abdominal pain (20 sources) Epigastric pain; Translations: [Epigastric pain] 11-27-2019 Episodic Acute bronchitis (19 sources) Acute bronchitis; Translations: [Acute bronchitis, unspecified] Episodic Allergic reactions (20 sources) Non-celiac gluten sensitivity; 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 Anxiety disorders (20 sources) Generalized anxiety disorder; Translations: [Generalized anxiety disorder] 06-02-2022 Chronic Biliary tract disease (20 sources) Biliary dyskinesia; Translations: [Other specified diseases of gallbladder] 04-19-2020 Episodic Cardiac dysrhythmias (1 source) Tachycardia, unspecified; Translations: [Tachycardia] Onset: Episodic Conditions associated with dizziness or vertigo (15 sources) Vertigo; Translations: [Dizziness and giddiness] 09-26-2022 Episodic Deficiency and other anemia (20 sources) Pancytopenia; Translations: [Other pancytopenia] 11-27-2019 Chronic Deficiency and other anemia (20 sources) Anemia; Translations: [Anemia, unspecified] 06-02-2022 Episodic Diabetes or abnormal glucose tolerance complicating ; childbirth; or the puerperium (20 sources) Gestational diabetes mellitus; Translations: [Gestational diabetes mellitus in , unspecified control] 12-29-2021 Episodic Esophageal disorders (20 sources) Gastroesophageal reflux disease; Translations: [Gastro-esophageal reflux disease without esophagitis] Onset: Chronic Fluid and electrolyte disorders (20 sources) Lactic acidosis; Translations: [Acidosis] 08-25-2019 Episodic Gastrointestinal hemorrhage (20 sources) Rectal hemorrhage; Translations: [Hemorrhage of anus and rectum] Episodic Headache; including migraine (20 sources) Headache; Translations: [Headache] 05-15-2019 Episodic Hepatitis (20 sources) Acute hepatitis; Translations: [Acute viral hepatitis, unspecified] 11-27-2019 Episodic Hypertension complicating ; childbirth and the puerperium (20 sources) -induced hypertension; Translations: [Gestational [-induced] hypertension without significant proteinuria, unspecified trimester] 05-19-2019 Episodic Immunity disorders (20 sources) Immunoglobulin A deficiency; 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 Comment on above: recommend annual pap s, on oral budesonide Menopausal disorders (16 sources) Menopausal syndrome; Translations: [Menopausal and female climacteric states] 03-15-2023 Chronic Comment on above: labs ordered Menstrual disorders (20 sources) Amenorrhea; Translations: [Amenorrhea, unspecified] 06-02-2022 Chronic Noninfectious gastroenteritis (10 sources) Colitis; Translations: [Noninfective gastroenteritis and colitis, unspecified] 11-22-2023 Episodic Nutritional deficiencies (7 sources) Vitamin D deficiency; Translations: [Vitamin D deficiency, unspecified] Onset: 01-04-2025 Chronic Osteoarthritis (1 source) Arthritis; Translations: [Unspecified osteoarthritis, unspecified site] 01-16-2025 Chronic Other complications of ; puerperium affecting management of mother (20 sources) Spinal and epidural anesthesia-induced headache during labor and delivery; Translations: [Spinal and epidural anesthesia-induced headache during labor and delivery] 05-19-2019 Episodic Other female genital disorders (20 sources) Pruritus of vagina; Translations: [Other specified noninflammatory disorders of vagina] 10-31-2021 Episodic Comment on above: hygiene handout give n, nystatin traimcinolone Other gastrointestinal disorders (20 sources) Malabsorption syndrome; Translations: [Intestinal malabsorption, unspecified] 06-02-2022 Chronic Other gastrointestinal disorders (20 sources) Irritable bowel syndrome with diarrhea; Translations: [Irritable bowel syndrome with diarrhea] Onset: 06-02-2022 Chronic Other gastrointestinal disorders (1 source) Irritable bowel syndrome with diarrhea; Translations: [Irritable bowel syndrome] Chronic Other gastrointestinal disorders (20 sources) Irritable bowel syndrome; Translations: [Irritable bowel syndrome without diarrhea] 03-01-2023 Chronic Other gastrointestinal disorders (7 sources) Irritable bowel syndrome without diarrhea; Translations: [Irritable bowel syndrome] 03-01-2023 Chronic Other gastrointestinal disorders (14 sources) Celiac disease; Translations: [Celiac disease] 10-27-2024 Chronic Other gastrointestinal disorders (1 source) Celiac disease; Translations: [Celiac disease] Onset: Chronic Other gastrointestinal disorders (20 sources) Diarrhea; Translations: [Diarrhea, unspecified] 06-09-2022 Episodic Other gastrointestinal disorders (8 sources) Diarrhea, unspecified; Translations: [Diarrhea] Episodic Other gastrointestinal disorders (20 sources) Abdominal bloating; Translations: [Abdominal distension (gaseous)] 03-01-2023 Episodic Other liver diseases (18 sources) Steatosis of liver; Translations: [Fatty (change of) liver, not elsewhere classified] 07-23-2022 Chronic Other liver diseases (20 sources) Fatty (change of) liver, not elsewhere classified; Translations: [Nonalcoholic fatty liver disease] Chronic Other liver diseases (20 sources) Elevated liver enzymes level; Translations: [Abnormal levels of other serum enzymes] 08-25-2019 Episodic Other liver diseases (17 sources) Large liver; Translations: [Hepatomegaly, not elsewhere classified] 07-23-2022 Episodic Other lower respiratory disease (6 sources) Dyspnea; Translations: [Shortness of breath] 11-10-2024 Episodic Other non-traumatic joint disorders (1 source) Enteropathic arthropathies, unspecified site; 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, unspecified site] Onset: Chronic Other non-traumatic joint disorders (12 sources) Multiple joint pain; Translations: [Pain in unspecified joint] 01-16-2025 Episodic Other nutritional; endocrine; and metabolic disorders (20 sources) Metabolic syndrome X; Translations: [Metabolic syndrome] 06-02-2022 Chronic Other nutritional; endocrine; and metabolic disorders (20 sources) Abnormal weight gain; Translations: [Abnormal weight gain] 06-02-2022 Episodic Other nutritional; endocrine; and metabolic disorders (10 sources) Weight increased; Translations: [Abnormal weight gain] 12-14-2024 Episodic Other skin disorders (1 source) Rash and other nonspecific skin eruption; Translations: [Rash] Onset: Episodic Other upper respiratory disease (5 sources) Allergic rhinitis; Translations: [Allergic rhinitis, unspecified] 10-06-2021 Chronic Other upper respiratory disease (6 sources) Seasonal allergy; Translations: [Other seasonal allergic rhinitis] 03-20-2024 Chronic Other upper respiratory infections (20 sources) Sinusitis; Translations: [Chronic sinusitis, unspecified] 06-02-2022 Chronic Otitis media and related conditions (18 sources) Acute bilateral otitis media ; Translations: [Otitis media, unspecified, bilateral] 01-03-2023 Episodic Ovarian cyst (20 sources) Cyst of ovary; Translations: [Unspecified ovarian cyst, unspecified side] 11-27-2019 Episodic Regional enteritis and ulcerative colitis (16 sources) Crohn's disease, unspecified, with unspecified complications; Translations: [Crohn's disease of small intestine] Onset: 10-27-2024 Chronic Sprains and strains (8 sources) Sprain of left wrist; Translations: [Unspecified sprain of left wrist, initial encounter] 01-03-2024 Episodic Superficial injury; contusion (16 sources) Contusion of left forearm; Translations: [Contusion of left forearm, initial encounter] 01-03-2024 Episodic Urinary tract infections (20 sources) Lower urinary tract infectious disease; Translations: [Urinary tract infection, site not specified] 05-19-2019 Episodic Viral infection (20 sources) Viral disease; Translations: [Viral infection, unspecified] 08-25-2019 Episodic Past or Other Problems Problem Classification Problem Date Documented Da te Episodic/Chronic Deficiency and other anemia (5 sources) Iron deficiency anemia; Translations: [Iron deficiency anemia, unspecified] Onset: 09-14-2011 09-14-2011 Episodic Malaise and fatigue (9 sources) Fatigue; Translations: [Other fatigue] Onset: 01-07-2025 11-10-2024 Episodic Other connective tissue disease (1 source) Ganglion, right ankle and foot; Translations: [Ganglion, right ankle and foot] Onset: 09-01-2024 Episodic Other gastrointestinal disorders (8 sources) Abdominal distension (gaseous); Translations: [Flatulence, eructation, and gas pain] Onset: 12-06-2024 03-01-2023 Episodic Other injuries and conditions due to external causes (5 sources) Motion sickness; Translations: [Motion sickness, initial encounter] Onset: 07-13-2018 07-13-2018 Episodic Other lower respiratory disease (1 source) Shortness of breath; Translations: [Shortness of breath] Onset: 11-15-2024 Episodic Other lower respiratory disease (1 source) Other forms of dyspnea; Translations: [Other forms of dyspnea] Onset: 11-16-2024 Episodic Other non-traumatic joint disorders (2 sources) Pain in unspecified joint; Translations: [Pain in joint, multiple sites] Onset: 01-16-2025 Episodic Other screening for suspected conditions (not mental disorders or infectious disease) (20 sources) Liver function tests abnormal; Translations: [Other specified abnormal findings of blood chemistry] Onset: 10-13-2024 08-26-2019 Episodic Other upper respiratory infections (20 sources) Acute bacterial sinusitis; Translations: [Acute sinusitis, unspecified] Onset: 09-09-2024 01-03-2023 Episodic Skin and subcutaneous tissue infections (8 sources) Inflammatory disorder; Translations: [Cutaneous abscess, unspecified] Onset: 04-24-2011 Resolved: 07-13-2018 07-13-2018 Episodic Results Test Name Value Interpretation Reference Range Facility Absolute lymphocyte countOrd ered By: Uma Alejandro on 06-08-2025 Lymphocytes Auto (Unsp spec) [#/Vol] 1.97 10*3/uL 0.83-4.51 [facility] Absolute neutrophil countOrd ered By: Umagrisel Alejandro on 06-08-2025 Neutrophils (Bld) [#/Vol] 3.7 10*3/uL 2.0-7.7 [facility] Anion gap in Serum or Plasma Ordered By: Uma Alejandro on 06-08-2025 Anion gap [Moles/Vol] 12 mmol/L 5-15 [facility] Automated lymphocyte count a s percentage of total leukocytesOrdered By: Uma Alejandro on 06-08-2025 Lymphocytes/100 WBC Auto (Unsp spec) 31.1 % 19-41 [facility] BUN/creatinine ratioOrdered By: Uma Alejandro on 06-08-2025 Urea nitrogen/Creatinine [Mass ratio] 11.9 mg/mg 10-20 [facility] Basophil percentageOrdered B y: Uma Alejandro on 06-08-2025 Basophils/100 WBC (Bld) 0.6 % 0-1 [facility] Bilirubin, totalOrdered By: Uma Alejandro on 06-08-2025 Bilirubin [Mass/Vol] 0.18 mg/dL 0.00-1.[address] [facility] CBC W/Diff, Automatedon 05-12 Absolute Lymph 1.97 X10 3/uL Normal 0.83-4.51 [facility] Comment on above: Performed By: #### L [id number], L3410.9998, L500.4050, L100.0100, L101.9900, L504.2610 #### [facility] [address] [place], [address] Absolute Neut 3.7 X10 3/uL Normal 2.0-7.7 [facility] Comment on above: Performed By: #### L [id number], L3410.9998, L500.4050, L100.0100, L101.9900, L504.2610 #### [facility] [address] [place], [address] Basophils/100 WBC (Bld) 0.6 % Normal 0-1 [facility] Comment on above: Performed By: #### L [id number], L3410.9998, L500.4050, L100.0100, L101.9900, L504.2610 #### [facility] [address] [place], [address] Eosinophils/100 WBC (Bld) 2.7 % Normal 0-5 [facility] Comment on above: Performed By: #### L [id number], L3410.9998, L500.4050, L100.0100, L101.9900, L504.2610 #### [facility] [address] [place], [address] Erythrocyte distribution width (RBC) [Ratio] 12.4 % Normal 11.6-14.6 [facility] Comment on above: Performed By: #### L [id number], L3410.9998, L500.4050, L100.0100, L101.9900, L504.2610 #### [facility] [address] [place], [address] Hematocrit (Bld) [Volume fraction] 35.1 % Low 37-47 [facility] Comment on above: Performed By: #### L [id number], L3410.9998, L500.4050, L100.0100, L101.9900, L504.2610 #### [facility] [address] [place], [address] Hemoglobin (Bld) [Mass/Vol] 11.9 g/dL Low 12.0-15.0 [facility] Comment on above: Performed By: #### L [id number], L3410.9998, L500.4050, L100.0100, L101.9900, L504.2610 #### [facility] [address] [place], [address] IG% 0.200 Normal 0.0-0.9 [facility] Comment on above: Result Comment: IG% - Immature Granulocytes (promyelocytes, myelocytes and metamyelocytes) > 1% indicates that a LEFT SHIFT is Present. Performed By: #### L [id number], L3410.9998, L500.4050, L100.0100, L101.9900, L504.2610 #### [facility] [address], [address] Lymphocytes/100 WBC (Bld) 31.1 % Normal 19-41 [facility] Comment on above: Performed By: #### L [id number], L3410.9998, L500.4050, L100.0100, L101.9900, L504.2610 #### [facility] [address] [place], [address] MCH (RBC) [Entitic mass] 29.4 pg Normal 27.0-32.0 [facility] Comment on above: Performed By: #### L [id number], L3410.9998, L500.4050, L100.0100, L101.9900, L504.2610 #### [facility] [address] [place], [address] MCHC (RBC) [Mass/Vol] 33.9 g/dL Normal 32-36 [facility] Comment on above: Performed By: #### L [id number], L3410.9998, L500.4050, L100.0100, L101.9900, L504.2610 #### [facility] [address] [place], [address] MCV (RBC) [Entitic vol] 86.7 fL Normal 81-99 [facility] Comment on above: Performed By: #### L [id number], L3410.9998, L500.4050, L100.0100, L101.9900, L504.2610 #### [facility] [address] [place], [address] Monocytes/100 WBC (Bld) 7.4 % Normal 0-10 [facility] Comment on above: Performed By: #### L [id number], L3410.9998, L500.4050, L100.0100, L101.9900, L504.2610 #### [facility] [address] [place], [address] Neutrophils/100 WBC (Bld) 58.0 % Normal 47-70 [facility] Comment on above: Performed By: #### L [id number], L3410.9998, L500.4050, L100.0100, L101.9900, L504.2610 #### [facility] [address] [place], [address] Nucleated RBC (Bld) [#/Vol] 0 10*3/uL Normal 0-5 [facility] Comment on above: Performed By: #### L [id number], L3410.9998, L500.4050, L100.0100, L101.9900, L504.2610 #### [facility] [address] [place], [address] Platelet mean volume (Bld) [Entitic vol] 11.1 fL Normal 6.2-12.0 [facility] Comment on above: Performed By: #### L [id number], L3410.9998, L500.4050, L100.0100, L101.9900, L504.2610 #### [facility] [address] [place], [address] Platelets (Bld) [#/Vol] 256 10*3/uL Normal 150-450 [facility] Comment on above: Performed By: #### L [id number], L3410.9998, L500.4050, L100.0100, L101.9900, L504.2610 #### [facility] [address] [place], [address] RBC (Bld) [#/Vol] 4.05 10*6/uL Low 4.2-5.4 [facility] Comment on above: Performed By: #### L [id number], L3410.9998, L500.4050, L100.0100, L101.9900, L504.2610 #### [facility] [address] [place], [address] RDW SD 39.6 fl Normal 35.1-43.9 [facility] Comment on above: Performed By: #### L [id number], L3410.9998, L500.4050, L100.0100, L101.9900, L504.2610 #### [facility] [address] [place], [address] WBC (Bld) [#/Vol] 6.3 10*3/uL Normal 4.4-11.0 [facility] Comment on above: Performed By: #### L [id number], L3410.9998, L500.4050, L100.0100, L101.9900, L504.2610 #### [facility] [address] [place], [address] Carbon dioxide, total [Moles /volume] in Central venous bloodOrdered By: Uma Alejandro on 06-08-2025 CO2 [Moles/Vol] 21.6 mmol/L 21.0-32.0 [facility] Chloride assayOrdered By: Rich Alejandro on 06-08-2025 Chloride [Moles/Vol] 105 mmol/L 98-[address] [facility] Comprehensive Metabolic Prof ilon 06-08-2025 Albumin [Mass/Vol] 4.4 g/dL Normal 3.5-5.0 [facility] Comment on above: Performed By: #### L [id number], L3410.9998, L500.4050, L100.0100, L101.9900, L504.2610 #### [facility] [address] [place], [address] Albumin/Globulin [Mass ratio] 1.7 {ratio} Normal 0.9-2.4 [facility] Comment on above: Performed By: #### L [id number], L3410.9998, L500.4050, L100.0100, L101.9900, L504.2610 #### [facility] [address] [place], [address] ALK PHOS 53 U/L Normal 35-104 [facility] Comment on above: Performed By: #### L [id number], L3410.9998, L500.4050, L100.0100, L101.9900, L504.2610 #### [facility] [address] [place], [address] ALT [Catalytic activity/Vol] 28 U/L Normal <=34 [facility] Comment on above: Performed By: #### L [id number], L3410.9998, L500.4050, L100.0100, L101.9900, L504.2610 #### [facility] [address] [place], [address] AST [Catalytic activity/Vol] 20 U/L Normal <=31 [facility] Comment on above: Performed By: #### L [id number], L3410.9998, L500.4050, L100.0100, L101.9900, L504.2610 #### [facility] [address] [place], [address] Bilirubin [Mass/Vol] 0.18 mg/dL Normal 0.00-1.[address] [facility] Comment on above: Performed By: #### L [id number], L3410.9998, L500.4050, L100.0100, L101.9900, L504.2610 #### [facility] [address] [place], [address] BUN/CRE 11.9 RATIO Normal 10-20 [facility] Comment on above: Performed By: #### L [id number], L3410.9998, L500.4050, L100.0100, L101.9900, L504.2610 #### [facility] [address] [place], [address] Calcium [Mass/Vol] 9.0 mg/dL Normal 7.6-11.0 [facility] Comment on above: Performed By: #### L [id number], L3410.9998, L500.4050, L100.0100, L101.9900, L504.2610 #### [facility] [address] [place], [address] Chloride [Moles/Vol] 105 mmol/L Normal 98-[address] [facility] Comment on above: Performed By: #### L [id number], L3410.9998, L500.4050, L100.0100, L101.9900, L504.2610 #### [facility] [address] [place], [address] CO2 [Moles/Vol] 21.6 mmol/L Normal 21.0-32.0 [facility] Comment on above: Performed By: #### L [id number], L3410.9998, L500.4050, L100.0100, L101.9900, L504.2610 #### [facility] [address] [place], [address] Creatinine [Mass/Vol] 0.69 mg/dL Low 0.70-1.20 [facility] Comment on above: Performed By: #### L [id number], L3410.9998, L500.4050, L100.0100, L101.9900, L504.2610 #### [facility] [address] [place], [address] GAP 12 Normal 5-15 [facility] Comment on above: Performed By: #### L [id number], L3410.9998, L500.4050, L100.0100, L101.9900, L504.2610 #### [facility] [address] [place], [address] GFR/1.73 sq M.predicted among non-blacks MDRD (S/P/Bld) [Vol rate/Area] 118 mL/min/{1.73_m2} Normal >60 [facility] Comment on above: Result Comment: mL/m in/1.73m2 CKD-EPI Creatinine Equation (2020) Performed By: #### L [id number], L3410.9998, L500.4050, L100.0100, L101.9900, L504.2610 #### [facility] [address] [place], [address] Globulin (S) [Mass/Vol] 2.6 g/dL Normal 2.2-4.2 [facility] Comment on above: Performed By: #### L [id number], L3410.9998, L500.4050, L100.0100, L101.9900, L504.2610 #### [facility] [address] [place], [address] Glucose [Mass/Vol] 98 mg/dL Normal 70-99 [facility] Comment on above: Performed By: #### L [id number], L3410.9998, L500.4050, L100.0100, L101.9900, L504.2610 #### [facility] [address] [place], [address] Potassium [Moles/Vol] 3.8 mmol/L Normal 3.3-5.1 [facility] Comment on above: Performed By: #### L [id number], L3410.9998, L500.4050, L100.0100, L101.9900, L504.2610 #### [facility] [address] [place], [address] Sodium [Moles/Vol] 138 mmol/L Normal 133-145 [facility] Comment on above: Performed By: #### L [id number], L3410.9998, L500.4050, L100.0100, L101.9900, L504.2610 #### [facility] [address] [place], [address] T PROT 6.9 g/dL Normal 5.9-8.4 [facility] Comment on above: Performed By: #### L [id number], L3410.9998, L500.4050, L100.0100, L101.9900, L504.2610 #### [facility] [address] [place], [address] Urea nitrogen [Mass/Vol] 8 mg/dL Normal 4-19 [facility] Comment on above: Performed By: #### L [id number], L3410.9998, L500.4050, L100.0100, L101.9900, L504.2610 #### [facility] [address] [place], [address] Eosinophil percentageOrdered By: Uma Alejandro on 06-08-2025 Eosinophils/100 WBC (Bld) 2.7 % 0-5 [facility] Erythrocyte distribution wid th ratioOrdered By: Umagrisel Alejandro on 06-08-2025 Erythrocyte distribution width (RBC) [Ratio] 12.4 % 11.6-14.6 [facility] Erythrocyte distribution wid th standard deviationOrdered By: Uma Alejandro on 06-08-2025 Erythrocyte distribution width (RBC) [Ratio] 39.6 fl 35.1-43.9 [facility] Glomerular filtration rate ( GFR) estimation/1.73 sq m using serum, plasma, or whole bOrdered By: Uma Alejandro on 06-08-2025 GFR/1.73 sq M.predicted among non-blacks MDRD (S/P/Bld) [Vol rate/Area] 118 mL/min/{1.73_m2} >60 [facility] Comment on above: mL/min/1.73m2 CKD-EP I Creatinine Equation (2020) Hematocrit Auto (Bld) [Volum e fraction]Ordered By: Uma Alejandro on 06-08-2025 Hematocrit (Bld) [Volume fraction] 35.1 % Low 37-47 [facility] Hemoglobin measurementOrdere d By: Uma Alejandro on 06-08-2025 Hemoglobin (Bld) [Mass/Vol] 11.9 g/dL Low 12.0-15.0 [facility] Immature granulocytes/100 WB C Auto (Bld)Ordered By: Uma Alejandro on 06-08-2025 Immature granulocytes/100 WBC (Bld) 0.200 % 0.0-0.9 [facility] Comment on above: IG% - Immature Granu locytes (promyelocytes, myelocytes and metamyelocytes) > 1% indicates that a LEFT SHIFT is Present. Laboratory - Chemistry and C hemistry - challengeOrdered By: Uma Alejandro on 06-08-2025 AST [Catalytic activity/Vol] 20 U/L <32 [facility] MCV (mean corpuscular volume ) determinationOrdered By: Uma Alejandro on 06-08-2025 MCV (RBC) [Entitic vol] 86.7 fL 81-99 [facility] Mean corpuscular hemoglobin (MCH) determinationOrdered By: Uma Alejandro on 06-08-2025 MCH (RBC) [Entitic mass] 29.4 pg 27.0-32.0 [facility] Mean corpuscular hemoglobin concentration (MCHC) determinationOrdered By: Uma Alejandro on 06-08-2025 MCHC (RBC) [Mass/Vol] 33.9 g/dL 32-36 [facility] Mean platelet volume determi nationOrdered By: Uma Alejandro on 06-08-2025 Platelet mean volume (Bld) [Entitic vol] 11.1 fL 6.2-12.0 [facility] Monocyte percentageOrdered B y: Uma Alejandro on 06-08-2025 Monocytes/100 WBC (Bld) 7.4 % 0-10 [facility] Neutrophil percentageOrdered By: Uma Alejandro on 06-08-2025 Neutrophils/100 WBC (Bld) 58.0 % 47-70 [facility] Nucleated red blood cell per centageOrdered By: Uma Alejandro on 06-08-2025 Nucleated RBC/100 WBC (Bld) [Ratio] 0 % 0-5 [facility] Platelet countOrdered By: Rich Alejandro on 06-08-2025 Platelets (Bld) [#/Vol] 256 10*3/uL 150-450 [facility] Potassium measurement (mass/ volume)Ordered By: Uma Alejandro on 06-08-2025 Potassium (Unsp spec) [Mass/Vol] 3.8 mmol/L 3.3-5.1 [facility] RBC Auto (Bld) [#/Vol]Ordere d By: Uma Alejandro on 06-08-2025 RBC (Bld) [#/Vol] 4.05 10*6/uL Low 4.2-5.4 [facility] Serum creatinine measurement (mass/volume)Ordered By: Uma Alejandro on 06-08-2025 Creatinine [Mass/Vol] 0.69 mg/dL Low 0.70-1.20 [facility] Serum globulin measurementOr dered By: Uma Alejandro on 06-08-2025 Globulin (S) [Mass/Vol] 2.6 g/dL 2.2-4.2 [facility] Serum glucose measurement (m ass/volume)Ordered By: Uma Alejandro on 06-08-2025 Glucose [Mass/Vol] 98 mg/dL 70-99 [facility] Serum or plasma alanine lynn otransferase (ALT) measurementOrdered By: Uma Alejandro on 06-08-2025 ALT [Catalytic activity/Vol] 28 U/L <35 [facility] Serum or plasma albumin nadine urement (mass/volume)Ordered By: Uma Alejandro on 06-08-2025 Albumin [Mass/Vol] 4.4 g/dL 3.5-5.0 [facility] Serum or plasma albumin/glob ulin mass ratioOrdered By: Uma Alejandro on 06-08-2025 Albumin/Globulin [Mass ratio] 1.7 {ratio} 0.9-2.4 [facility] Serum or plasma alkaline rosa sphatase measurementOrdered By: Uma Alejandro on 06-08-2025 ALP [Catalytic activity/Vol] 53 U/L 35-104 [facility] Serum or plasma calcium nadine urement (mass/volume)Ordered By: Uma Alejandro on 06-08-2025 Calcium [Mass/Vol] 9.0 mg/dL 7.6-11.0 [facility] Serum or plasma urea nitroge n measurement (mass/volume)Ordered By: Uma Alejandro on 06-08-2025 Urea nitrogen [Mass/Vol] 8 mg/dL 4-19 [facility] Sodium levelOrdered By: Nino Alejandro on 06-08-2025 Sodium [Moles/Vol] 138 mmol/L 133-145 [facility] Total proteinOrdered By: Jelani Alejandro on 06-08-2025 Protein [Mass/Vol] 6.9 g/dL 5.9-8.4 [facility] Vitamin D,25 Hydroxyon 06-08 Vitamin D 25-OH 37.4 ng/mL Normal 30-100 [facility] Comment on above: Result Comment: Rowan min D Status Deficiency: <20 ng/mL (50nmol/L) Insufficiency: 20-30 ng/mL (50-75 nmol/L) Sufficiency: 30-100 ng/mL (75-250 nmol/L) Toxicity: >100 ng/mL (>250 nmol/L) Performed By: #### L [id number], L3410.9998, L500.4050, L100.0100, L101.9900, L504.2610 #### [facility] [address] [place], [address] White blood cell (WBC) count Ordered By: Uma Alejandro on 06-08-2025 WBC (Bld) [#/Vol] 6.3 10*3/uL 4.4-11.0 [facility] CNOVon 05-17-2025 CN Office Visit (GABEWA ) PROSPER HARRY ([id number]) 1990 F Date Time Provider Department 05/17/25 5:10 PM SINDHU GATES During your visit today, we recorded the following information about you: Temperature Pulse Respiration Blood pressure 97 degrees 80/minute 18/minute 122/78 Weight Height 74.4 kg 1.676 m Sindhu Gates APRN.CNP 05/17/2025 5:30 PM Addendum (R21) Rash (primary encounter diagnosis) Plan: predniSONE (DELTASONE) 10 mg tablet, famotidine (PEPCID) 20 mg tablet, cetirizine (ZYRTEC) 10 mg tablet -Steroids and 2 antihistamines. -Keep area clean and dry. Non scented antimicrobial soap and water. -If you have significant itching please avoid heat as this can make the itching worse. Cool compresses for comfort. -Do not pick at the site. This can lead to a secondary infection. -Signs of worsening infection: increased in size, streaking up or down the skin, fever of 101 F or higher, or copious drainage from the site. -If no improvement please follow up in 3-5 days. -Be seen immediately or go to the ER with worsening symptoms. 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 Patient/authorized termite control service representative agreed to proceed Subjective: The patient is a 34-year-old female presenting with a pruritic rash following suspected poison rosette exposure. History of Present Illness: Pruritic Rash: - Rash onset following yard work on Wednesday. - Initial lesion noted on the arm, with subsequent spread to multiple areas. - Serous drainage from several lesions. - Tried Benadryl itch gel, calamine lotion, and Rosette Stop soap with minimal relief. - Pruritus intensifies as the day progresses. - Denies fever, dysphagia, or dyspnea. Review of Systems: Constitutional: (-) fever Ears/Nose/Mouth/Throat: (-) dysphagia Respiratory: (-) dyspnea Skin: (+) pruritic rash, (+) skin drainage Allergies: Allergies: Gadolinium-Containi* Hives, Other: See Comments Comment:Lip swelling Morphine Swelling Past Medical History: PAST MEDICAL HISTORY Diagnosis Date Allergic rhinitis Dr. Vick Angioedema of lips Dr. Vick (tongue and lip swelling) Cellulitis and abscess of unspecified site from ruptured appendix (March 2011--resolved) Crohn's colitis (HCC) Urticaria Dr. Vick Past Surgical History: PAST SURGICAL HISTORY Procedure Laterality Date COLONOSCOPY FLX DX W/COLLJ SPEC WHEN PFRMD 04/17/2011 Colonoscopy COLONOSCOPY W/BIOPSY SINGLE/MULTIPLE 04/27/11 DEBRIDEMENT OPEN WOUND 20 SQ CM/< 04/24/11 Debride RLQ wound LAPS COLECTOMY PRTL W/RMVL TERMINAL ILEUM 8 lap right PAST SURGICAL HISTORY OF appendix removal March and May 2011 PAST SURGICAL HISTORY OF 2007 left Acl repair TONSILLECTOMY HX 2005 Family History: FAMILY HISTORY Problem Relation Age of Onset Hypertension Father other (depression) Father Diabetes Maternal Grandmother Diabetes Paternal Grandmother Heart Paternal Grandmother Blood Disease Paternal Grandfather Prostate Cancer Paternal Grandfather other (crohn's) Sister Tobacco History: Tobacco Use: Never Medications: Current Outpatient Medications Medication Sig Dispense Refill Cholecalciferol, Vitamin D3, 25 mcg (1,000 unit) cap Take 25 mcg by mouth once daily. omeprazole (PRILOSEC) 40 mg capsule Take 1 capsule by mouth every 12 hours. Zinc Acetate, Oral, 50 mg (zinc) cap Take by mouth. fexofenadine HCl (WILLOW ALLERGY ORAL) Take by mouth. predniSONE (DELTASONE) 10 mg tablet Take by mouth 4 tabs a day for 4 days, then 2 tabs a day for 4 days, then 1 tab a day for 4 days, then 1/2 tab a day for 4 days. 30 tablet 0 famotidine (PEPCID) 20 mg tablet Take 1 tablet by mouth two times a day for 7 days. 14 tablet 0 cetirizine (ZYRTEC) 10 mg tablet Take 1 tablet by mouth once daily for 7 days. 7 tablet 0 No current facility-administered medications for this visit. Vitals: BP 122/78 (BP Site: Right Arm, BP Position: Sitting, BP Cuff Size: Regular Adult) Pulse 80 Temp 36.1 ?C (97 ?F) (Right Tympanic) Resp 18 Ht 167.6 cm (5' 6) Wt 74.4 kg (164 lb 0.4 oz) LMP 02/03/2021 SpO2 99% BMI 26.47 kg/m? Physical Exam: Physical Exam Vitals reviewed. Constitutional: General: She is not in acute distress. Appearance: She is not ill-appearing, toxic-appearing or diaphoretic. Pulmonary: Effort: Pulmonary effort is normal. Skin: Findings: Rash (vesiculopapular rash to the bilateral arms and legs) present. Neurological: Mental Status: She is alert. Psychiatric: Behavior: Behavior is cooperative. ASSESSMENT/PLAN: (R21) Rash (primary encounter diagnosis) Plan: predniSONE (DELTASONE) 10 m (more content not included)... Normal [facility] Office Visit Reporton 05-07-2025 [facility] Office Visit Report [facility] [address], [address] [place] [address] OFFICE VISIT Date of Service: 05/07/25 MR#: [id number] Acct: [id number] Name: PROSPER HARRY Rep #: [id number] : 1990 Provider: Dr. 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 Poultry Required: No Is patient in pain?: No Allergies Gadolinium-MRI Contrast Medium Allergy (Intermediate, Verified 05/07/25 13:25) Hives morphine Allergy (Verified 05/07/25 13:25) Hives Medications ???Medication ???Instructions ???Recorded ???Confirmed ???Type cholecalciferol (vitamin D3) 25 25 mcg PO DAILY 10/31/21 05/07/25 History mcg (1,000 unit) capsule omeprazole 40 mg capsule,delayed 40 mg PO QDAY 11/10/24 05/07/25 Hi story release vitamin E 268 mg (400 unit) capsule 268 mg PO QDAY 11/10/24 5 History ascorbic acid 1,000 1 ea PO DAILY PRN 11/15/24 5 History jd-aqcphoxcyasi-jyhonzeb powder effervescent pack (Emergen-C Immune Plus) Is last menstrual period known: Yes Last Menstrual Period: 05/06/25 Post menopausal: No Patient : No : No PFSH Medical History Abnormal EKG Fatigue SOB (shortness of breath) Crohn's disease Celiac disease Weight gain, abnormal Biliary colic Anemia Anxiety, generalized IgA deficiency Non-celiac gluten sensitivity Malabsorption syndrome Metabolic syndrome Irritable bowel syndrome with diarrhea Abdominal pain GERD (gastroesophageal reflux disease) Gestational diabetes mellitus (GDM) Biliary dyskinesia Epigastric pain Acute hepatitis Pancytopenia Ovarian cyst Surgical History Hx of anterior cruciate ligament tear reconstruction H/O hemicolectomy History of cholecystectomy ( 04/2020) S/P appendectomy S/P ACL surgery S/P tonsillectomy Family History Grandmother Diabetes Father Hypertension Grandfather Cancer Sister Crohn's disease Social History number of children: 3 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 Date Name GA/Weeks Outcome Route Bth Weight Gen Labor Lgth Anesthesia Del Locatn Provider CONTRERAS 06/07/16 Radha 02/19/18 Ana 05/10/19 Jarred [facility] Encounter for routine gynecological examination Details: PROSPER HARRY is a 34 year old who presents for annual exam. Last PAP: 03/20/2024 - normal History of abnormal PAP: Last mammogram: not due History of abnormal mammogram: Colon cancer screening: March 2025 - Crohns Other preventative health care screenings: PCP Smith. CYNTHIA Lopez Friend. Female Reproductive History Last Menstrual Period: 05/06/25 Cycle Length: 21-35 Bleeding Duration: 5 Questions: metorrhagia: No, sexually active: Yes, dyspareunia: No and PCB: No Menopausal Symptoms: No hot flashes, No night sweats, No weight change, No mood changes, No difficulty concentrating, No sleep problems and No change in libido ROS Const Constitutional: Reports as per HPI; Denies fatigue, increased appetite, poor appetite, night sweats, weight gain or weight loss Cardio Card: Denies chest pain Resp Resp: Denies cough or dyspnea GI GI: Reports as per HPI; Denies abdominal pain, bloating, constipation, nausea or vomiting : Reports as per HPI and other; Denies difficulty voiding, dysuria, hematuria, hot flashes, nipple discharge, pelvic pain, prolapse symptoms, urinary frequency, urinary incontinence, urinary urgency, vaginal discharge, vaginal dryness, vaginal odor or vaginal pruritus Skin Skin/Breast: Denies changing lesions, breast mass, breast pain, breast skin changes or nipple discharge Psych Psych: Denies anxiety, change in libido, depression or difficulty concentrating Exam Const General: cooperative, healthy appearing, comfortable, no acute distress, well developed and well groomed [facility] Head: normal to inspection and norm (more content not included)... Normal [facility] Quantiferon TB-Gold+on 02-15 QFT MITOGEN ALVERTO > 10.00 Normal . [facility] Comment on above: Performed By: #### L 100.0100, L500.4050 #### [facility] [address] [place], [address] QFT NIL VALUE 0.07 IU/mL Normal . [facility] Comment on above: Performed By: #### L 100.0100, L500.4050 #### [facility] [address] [place], [address] QFT TB GOLD+ Comment Normal . [facility] Comment on above: Result Comment: Neel tiFERON-TB Gold Plus is a qualitative indirect test for M tuberculosis infection (including disease) and is intended for use in conjunction with risk assessment, radiography, and other medical and diagnostic evaluations. The QuantiFERON-TB Gold Plus result is determined by subtracting the Nil value from either TB antigen (Ag) value. The Mitogen tube serves as a control for the test. Performed By: #### L 100.0100, L500.4050 #### [facility] [address] [place], [address] QFT TB POS CRIT Negative Normal Negative [facility] Comment on above: Result Comment: No r esponse to M tuberculosis antigens detected. Infection with M tuberculosis is unlikely, but high risk individuals should be considered for additional testing (ATS/IDSA/CDC Clinical Practice Guidelines, 2017). The reference range is an Antigen minus Nil result of <0.35 IU/mL. The specimen received for QuantiFERON testing was incubated by the ordering institution. Specific procedures outlined in our Directory of Services and in the package insert for the QuantiFERON Gold (In Tube) test must be followed to enable for proper stimulation of cells for the production of interferon gamma. Chemiluminescence immunoassay methodology Performed at: [facility] [address] [id number] Form Maker Plaster: Cem Howell PhD, Phone: [phone] Performed By: #### L 100.0100, L500.4050 #### [facility] [address] [place], [place], [id number] QFT TB1+ AG ALVERTO 0.05 IU/mL Normal . [facility] Comment on above: Performed By: #### L 100.0100, L500.4050 #### [facility] [address] [place], [place], [id number] QFT TB2+ AG ALVERTO 0.06 IU/mL Normal . [facility] Comment on above: Performed By: #### L 100.0100, L500.4050 #### [facility] [address] [place], [place], [id number] Absolute lymphocyte countOrd ered By: Zara Lr on 02-12-2025 Lymphocytes Auto (Unsp spec) [#/Vol] 1.94 10*3/uL 0.83-4.51 [facility] Absolute neutrophil countOrd ered By: Zara Lr on 02-12-2025 Neutrophils (Bld) [#/Vol] 3.2 10*3/uL 2.0-7.7 [facility] Anion gap in Serum or Plasma Ordered By: Zara Lr on 02-12-2025 Anion gap [Moles/Vol] 11 mmol/L 5-15 [facility] Automated lymphocyte count a s percentage of total leukocytesOrdered By: Zara Lr on 02-12-2025 Lymphocytes/100 WBC Auto (Unsp spec) 33.2 % 19-41 [facility] BUN/creatinine ratioOrdered By: Zara Lr on 02-12-2025 Urea nitrogen/Creatinine [Mass ratio] 9.9 mg/mg Low 10-20 [facility] Basophil percentageOrdered B y: Zara Lr on 02-12-2025 Basophils/100 WBC (Bld) 0.9 % 0-1 [facility] Bilirubin, totalOrdered By: Zara Adeline on 02-12-2025 Bilirubin [Mass/Vol] 0.30 mg/dL 0.00-1.[address] [facility] CBC W/Diff, Automatedon Absolute Lymph 1.94 X10 3/uL Normal 0.83-4.51 [facility] Comment on above: Performed By: #### L 100.0100, L500.4050 #### [facility] [address] [place], [address] Absolute Neut 3.2 X10 3/uL Normal 2.0-7.7 [facility] Comment on above: Performed By: #### L 100.0100, L500.4050 #### [facility] [address] [place], [address] Basophils/100 WBC (Bld) 0.9 % Normal 0-1 [facility] Comment on above: Performed By: #### L 100.0100, L500.4050 #### [facility] [address] [place], [address] Eosinophils/100 WBC (Bld) 1.5 % Normal 0-5 [facility] Comment on above: Performed By: #### L 100.0100, L500.4050 #### [facility] [address] [place], [address] Erythrocyte distribution width (RBC) [Ratio] 12.5 % Normal 11.6-14.6 [facility] Comment on above: Performed By: #### L 100.0100, L500.4050 #### [facility] [address] [place], [address] Hematocrit (Bld) [Volume fraction] 37.1 % Normal 37-47 [facility] Comment on above: Performed By: #### L 100.0100, L500.4050 #### [facility] [address] [place], [address] Hemoglobin (Bld) [Mass/Vol] 12.4 g/dL Normal 12.0-15.0 [facility] Comment on above: Performed By: #### L 100.0100, L500.4050 #### [facility] [address] [place], [address] IG% 0.300 Normal 0.0-0.9 [facility] Comment on above: Result Comment: IG% - Immature Granulocytes (promyelocytes, myelocytes and metamyelocytes) > 1% indicates that a LEFT SHIFT is Present. Performed By: #### L 100.0100, L500.4050 #### [facility] [address] [place], [address] Lymphocytes/100 WBC (Bld) 33.2 % Normal 19-41 [facility] Comment on above: Performed By: #### L 100.0100, L500.4050 #### [facility] [address], [address] MCH (RBC) [Entitic mass] 29.2 pg Normal 27.0-32.0 [facility] Comment on above: Performed By: #### L 100.0100, L500.4050 #### [facility] [address] [place], [address] MCHC (RBC) [Mass/Vol] 33.4 g/dL Normal 32-36 [facility] Comment on above: Performed By: #### L 100.0100, L500.4050 #### [facility] [address] [place], [address] MCV (RBC) [Entitic vol] 87.5 fL Normal 81-99 [facility] Comment on above: Performed By: #### L 100.0100, L500.4050 #### [facility] [address] [place], [address] Monocytes/100 WBC (Bld) 9.2 % Normal 0-10 [facility] Comment on above: Performed By: #### L 100.0100, L500.4050 #### [facility] [address] [place], [address] Neutrophils/100 WBC (Bld) 54.9 % Normal 47-70 [facility] Comment on above: Performed By: #### L 100.0100, L500.4050 #### [facility] [address] [place], [address] Nucleated RBC (Bld) [#/Vol] 0 10*3/uL Normal 0-5 [facility] Comment on above: Performed By: #### L 100.0100, L500.4050 #### [facility] [address] [place], [address] Platelet mean volume (Bld) [Entitic vol] 10.7 fL Normal 6.2-12.0 [facility] Comment on above: Performed By: #### L 100.0100, L500.4050 #### [facility] [address] [place], [address] Platelets (Bld) [#/Vol] 270 10*3/uL Normal 150-450 [facility] Comment on above: Performed By: #### L 100.0100, L500.4050 #### [facility] [address] [place], [address] RBC (Bld) [#/Vol] 4.24 10*6/uL Normal 4.2-5.4 [facility] Comment on above: Performed By: #### L 100.0100, L500.4050 #### [facility] [address] [place], [address] RDW SD 40.0 fl Normal 35.1-43.9 [facility] Comment on above: Performed By: #### L 100.0100, L500.4050 #### [facility] [address] [place], [address] WBC (Bld) [#/Vol] 5.8 10*3/uL Normal 4.4-11.0 [facility] Comment on above: Performed By: #### L 100.0100, L500.4050 #### [facility] [address] [place], [address] CRPon 02-12-2025 C-REACTIVE PROT < 3.00 Normal 0.0-3.0 [facility] Comment on above: Performed By: #### L 100.0100, L500.4050 #### [facility] [address] [place], [address] Carbon dioxide, total [Moles /volume] in Central venous bloodOrdered By: Zara Lr on 02-12-2025 CO2 [Moles/Vol] 23.0 mmol/L 21.0-32.0 [facility] Chest PA and Lateralon 02-12 Chest PA and Lateral [facility] [address] [place] [address] Chest PA and Lateral MR#: [id number] Acct: [id number] Name: PROSPER HARRY Rep #: [id number] : 1990 F 34 From: Kj Murrieta MD PCP: Dr. Ambreen Lyn MD Status: REG CLI Study: Chest PA and Lateral Date of Exam: 02/12/25 Exam# [id number] Ordering Dr: Zara Lr MD PROCEDURE: CHEST PA AND LATERAL 02/12/2025 REASON FOR EXAM: ARTHRITIS IN CROHN'S DISEASE TECHNIQUE: Frontal and lateral views of the chest. FINDINGS: The lungs appear clear. Pulmonary vascularity appears within limits. No pleural effusion. The cardiac and mediastinal contours appear within limits. Mild S shaped thoracolumbar curvature. RAD/Chest PA and Lateral IMPRESSION: No evidence of acute disease. Reading Location: [id number] CC: Dr. Ambreen Lyn MD; Dr. 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 Comprehensive Metabolic Prof ilon 02-12-2025 Albumin [Mass/Vol] 4.7 g/dL Normal 3.5-5.0 [facility] Comment on above: Performed By: #### L 100.0100, L500.4050 #### [facility] [address] [place], [address] Albumin/Globulin [Mass ratio] 1.7 {ratio} Normal 0.9-2.4 [facility] Comment on above: Performed By: #### L 100.0100, L500.4050 #### [facility] [address] [place], [address] ALK PHOS 54 U/L Normal 35-104 [facility] Comment on above: Performed By: #### L 100.0100, L500.4050 #### [facility] [address] [place], [address] ALT [Catalytic activity/Vol] 50 U/L High <=34 [facility] Comment on above: Performed By: #### L 100.0100, L500.4050 #### [facility] [address] [place], [address] AST [Catalytic activity/Vol] 27 U/L Normal <=31 [facility] Comment on above: Performed By: #### L 100.0100, L500.4050 #### [facility] [address] [place], [address] Bilirubin [Mass/Vol] 0.30 mg/dL Normal 0.00-1.[address] [facility] Comment on above: Performed By: #### L 100.0100, L500.4050 #### [facility] [address] [place], [address] BUN/CRE 9.9 RATIO Low 10-20 [facility] Comment on above: Performed By: #### L 100.0100, L500.4050 #### [facility] [address] [place], [address] Calcium [Mass/Vol] 9.3 mg/dL Normal 7.6-11.0 [facility] Comment on above: Performed By: #### L 100.0100, L500.4050 #### [facility] [address] [place], [address] Chloride [Moles/Vol] 105 mmol/L Normal 98-[address] [facility] Comment on above: Performed By: #### L 100.0100, L500.4050 #### [facility] [address] [place], [address] CO2 [Moles/Vol] 23.0 mmol/L Normal 21.0-32.0 [facility] Comment on above: Performed By: #### L 100.0100, L500.4050 #### [facility] [address] [place], [address] Creatinine [Mass/Vol] 0.70 mg/dL Normal 0.70-1.20 [facility] Comment on above: Performed By: #### L 100.0100, L500.4050 #### [facility] [address] [place], [address] GAP 11 Normal 5-15 [facility] Comment on above: Performed By: #### L 100.0100, L500.4050 #### [facility] [address] [place], [address] GFR/1.73 sq M.predicted among non-blacks MDRD (S/P/Bld) [Vol rate/Area] 116 mL/min/{1.73_m2} Normal >60 [facility] Comment on above: Result Comment: mL/m in/1.73m2 CKD-EPI Creatinine Equation (2020) Performed By: #### L 100.0100, L500.4050 #### [facility] [address] [place], [address] Globulin (S) [Mass/Vol] 2.8 g/dL Normal 2.2-4.2 [facility] Comment on above: Performed By: #### L 100.0100, L500.4050 #### [facility] [address] [place], [address] Glucose [Mass/Vol] 95 mg/dL Normal 70-99 [facility] Comment on above: Performed By: #### L 100.0100, L500.4050 #### [facility] [address] [place], [address] Potassium [Moles/Vol] 4.1 mmol/L Normal 3.3-5.1 [facility] Comment on above: Performed By: #### L 100.0100, L500.4050 #### [facility] [address] [place], [address] Sodium [Moles/Vol] 139 mmol/L Normal 133-145 [facility] Comment on above: Performed By: #### L 100.0100, L500.4050 #### [facility] [address] [place], [address] T PROT 7.5 g/dL Normal 5.9-8.4 [facility] Comment on above: Performed By: #### L 100.0100, L500.4050 #### [facility] [address] [place], [address] Urea nitrogen [Mass/Vol] 7 mg/dL Normal 4-19 [facility] Comment on above: Performed By: #### L 100.0100, L500.4050 #### [facility] [address] [place], [place], [id number] Eosinophil percentageOrdered By: Zara Lr on 02-12-2025 Eosinophils/100 WBC (Bld) 1.5 % 0-5 [facility] Erythrocyte Sed Rateon 02-12 SED RATE 1 mm/hr Normal 0-30 [facility] Comment on above: Performed By: #### L 100.0100, L500.4050 #### [facility] [address] [facility] [place], [address] Erythrocyte distribution wid th ratioOrdered By: Zara Lr on 02-12-2025 Erythrocyte distribution width (RBC) [Ratio] 12.5 % 11.6-14.6 [facility] Erythrocyte distribution wid th standard deviationOrdered By: Zara Lr on 02-12-2025 Erythrocyte distribution width (RBC) [Ratio] 40.0 fl 35.1-43.9 [facility] Erythrocyte sedimentation ra teOrdered By: Zara Lr on 02-12-2025 ESR (Bld) [Velocity] 1 mm/h 0-[address] [facility] Glomerular filtration rate ( GFR) estimation/1.73 sq m using serum, plasma, or whole bOrdered By: Zara Lr on 02-12-2025 GFR/1.73 sq M.predicted among non-blacks MDRD (S/P/Bld) [Vol rate/Area] 116 mL/min/{1.73_m2} >60 [facility] Comment on above: mL/min/1.73m2 CKD-EP I Creatinine Equation (2020) Hematocrit Auto (Bld) [Volum e fraction]Ordered By: Zara Lr on 02-12-2025 Hematocrit (Bld) [Volume fraction] 37.1 % 37-47 [facility] Hemoglobin measurementOrdere d By: Zara Lr on 02-12-2025 Hemoglobin (Bld) [Mass/Vol] 12.4 g/dL 12.0-15.0 [facility] Immature granulocytes/100 WB C Auto (Bld)Ordered By: Zara Lr on 02-12-2025 Immature granulocytes/100 WBC (Bld) 0.300 % 0.0-0.9 [facility] Comment on above: IG% - Immature Granu locytes (promyelocytes, myelocytes and metamyelocytes) > 1% indicates that a LEFT SHIFT is Present. Laboratory - Chemistry and C hemistry - challengeOrdered By: Zara Lr on 02-12-2025 AST [Catalytic activity/Vol] 27 U/L <32 [facility] MCV (mean corpuscular volume ) determinationOrdered By: Zara Lr on 02-12-2025 MCV (RBC) [Entitic vol] 87.5 fL 81-99 [facility] Mean corpuscular hemoglobin (MCH) determinationOrdered By: Zara Lr on 02-12-2025 MCH (RBC) [Entitic mass] 29.2 pg 27.0-32.0 [facility] Mean corpuscular hemoglobin concentration (MCHC) determinationOrdered By: Zara Lr on 02-12-2025 MCHC (RBC) [Mass/Vol] 33.4 g/dL 32-36 [facility] Mean platelet volume determi nationOrdered By: Zara Lr on 02-12-2025 Platelet mean volume (Bld) [Entitic vol] 10.7 fL 6.2-12.0 [facility] Monocyte percentageOrdered B y: Zara Lr on 02-12-2025 Monocytes/100 WBC (Bld) 9.2 % 0-10 [facility] Neutrophil percentageOrdered By: Zara Lr on 02-12-2025 Neutrophils/100 WBC (Bld) 54.9 % 47-70 [facility] Nucleated red blood cell per centageOrdered By: Zara Lr on 02-12-2025 Nucleated RBC/100 WBC (Bld) [Ratio] 0 % 0-5 [facility] Platelet countOrdered By: Jeannine Lr on 02-12-2025 Platelets (Bld) [#/Vol] 270 10*3/uL 150-450 [facility] Potassium measurement (mass/ volume)Ordered By: Zara Lr on 02-12-2025 Potassium (Unsp spec) [Mass/Vol] 4.1 mmol/L 3.3-5.1 [facility] Qualitative QuantiFERON-TB g old in tube testOrdered By: Zara Lr on 02-12-2025 M. tuberculosis tuberculin stim IFN-g Ql (Bld) 0.05 IU/mL . [facility] RBC Auto (Bld) [#/Vol]Ordere d By: Zara Lr on 02-12-2025 RBC (Bld) [#/Vol] 4.24 10*6/uL 4.2-5.4 [facility] Serum creatinine measurement (mass/volume)Ordered By: Zara Lr on 02-12-2025 Creatinine [Mass/Vol] 0.70 mg/dL 0.70-1.20 [facility] Serum globulin measurementOr dered By: Zara Lr on 02-12-2025 Globulin (S) [Mass/Vol] 2.8 g/dL 2.2-4.2 [facility] Serum glucose measurement (m ass/volume)Ordered By: Zara Lr on 02-12-2025 Glucose [Mass/Vol] 95 mg/dL 70-99 [facility] Serum or plasma C reactive p rotein measurement (mass/volume)Ordered By: Zara Lr on 02-12-2025 CRP [Mass/Vol] mg/L 0.0-3.0 [facility] Serum or plasma alanine lynn otransferase (ALT) measurementOrdered By: Zara Lr on 02-12-2025 ALT [Catalytic activity/Vol] 50 U/L High <35 [facility] Serum or plasma albumin nadine urement (mass/volume)Ordered By: Zara Lr on 02-12-2025 Albumin [Mass/Vol] 4.7 g/dL 3.5-5.0 [facility] Serum or plasma albumin/glob ulin mass ratioOrdered By: Zara Lr on 02-12-2025 Albumin/Globulin [Mass ratio] 1.7 {ratio} 0.9-2.4 [facility] Serum or plasma alkaline rosa sphatase measurementOrdered By: Zara Lr on 02-12-2025 ALP [Catalytic activity/Vol] 54 U/L 35-104 [facility] Serum or plasma calcium nadine urement (mass/volume)Ordered By: Zara Lr on 02-12-2025 Calcium [Mass/Vol] 9.3 mg/dL 7.6-11.0 [facility] Serum or plasma urea nitroge n measurement (mass/volume)Ordered By: Zara Lr on 02-12-2025 Urea nitrogen [Mass/Vol] 7 mg/dL 4-19 [facility] Sodium levelOrdered By: Rufino Lr on 02-12-2025 Sodium [Moles/Vol] 139 mmol/L 133-145 [facility] Total proteinOrdered By: Arben Lr on 02-12-2025 Protein [Mass/Vol] 7.5 g/dL 5.9-8.4 [facility] White blood cell (WBC) count Ordered By: Zara Lr on 02-12-2025 WBC (Bld) [#/Vol] 5.8 10*3/uL 4.4-11.0 [facility] 25(OH)D3 SerPl-ncon 2024 25-hydroxyvitamin D3 [Mass/Vol] 39.2 ng/mL Normal 31.0-80.0 [facility] Comment on above: Order Comment: Speci men Type: BLOOD SPECIMEN Ordering Facility: [facility] Address: [address] [place] [address] Result Comment: Clas sification of 25 [place] Vitamin D status: Deficiency/Insufficiency: < or = 30 ng/ml. Sufficiency/Optimal Levels: 31-80 ng/mL Toxicity: > 100 ng/mL. Test performed by chemiluminescent immunoassay. Performed By: #### 1 989-3 #### [facility] CLIA [id number] [address] [place] [address] [place] [address] [place] CBC W Auto Differential pane l (Bld)on 01-16-2025 Basophils (Bld) [#/Vol] 0.04 10*3/uL Normal <0.11 [facility] Comment on above: Order Comment: Speci men Type: BLOOD SPECIMEN Ordering Facility: [facility] Address: [address] [place] [address] Performed By: #### 4 537-7, 76802-5 #### [facility] CLIA [id number] [address] [place] [address] [place] Basophils/100 WBC (Bld) 0.6 % Normal [facility] Comment on above: Order Comment: Speci men Type: BLOOD SPECIMEN Ordering Facility: [facility] Address: [address] [place] [address] Performed By: #### 4 537-7, 67777-7 #### [facility] CLIA [id number] [address] [place] [address] [place] Differential cell count method Nom (Bld) Auto Normal [facility] Comment on above: Order Comment: Speci men Type: BLOOD SPECIMEN Ordering Facility: [facility] Address: [address] [place] [address] Performed By: #### 4 537-7, 02871-0 #### [facility] CLIA [id number] [address] [place] [address] [place] Eosinophils (Bld) [#/Vol] 0.09 10*3/uL Normal <0.46 [facility] Comment on above: Order Comment: Speci men Type: BLOOD SPECIMEN Ordering Facility: [facility] Address: [address] [place] [address] Performed By: #### 4 537-7, 56065-6 #### [facility] CLIA [id number] [address] [place] [address] [place] Eosinophils/100 WBC (Bld) 1.3 % Normal [facility] Comment on above: Order Comment: Speci men Type: BLOOD SPECIMEN Ordering Facility: [facility] Address: [address] [place] [address] Performed By: #### 4 537-7, 36231-3 #### [facility] CLIA [id number] [address] [place] [address] [place] Erythrocyte distribution width (RBC) [Ratio] 12.2 % Normal 11.5-15.0 [facility] Comment on above: Order Comment: Speci men Type: BLOOD SPECIMEN Ordering Facility: [facility] Address: [address] [place] [address] Performed By: #### 4 537-7, 39780-5 #### [facility] CLIA [id number] [address] [place] [address] [place] Hematocrit (Bld) [Volume fraction] 35.4 % Low 36.0-46.0 [facility] Comment on above: Order Comment: Speci men Type: BLOOD SPECIMEN Ordering Facility: [facility] Address: [address] [place] [address] Performed By: #### 4 537-7, 60908-6 #### [facility] CLIA [id number] [address] [place] [address] [place] Hemoglobin (Bld) [Mass/Vol] 11.6 g/dL Normal 11.5-15.5 [facility] Comment on above: Order Comment: Speci men Type: BLOOD SPECIMEN Ordering Facility: [facility] Address: [address] [place] [address] Performed By: #### 4 537-7, 79912-4 #### [facility] CLIA [id number] [address] [place] [address] [place] Immature granulocytes (Bld) [#/Vol] 10*3/uL Normal <0.10 [facility] Comment on above: Order Comment: Speci men Type: BLOOD SPECIMEN Ordering Facility: [facility] Address: [address] [place] [address] Performed By: #### 4 537-7, 08487-5 #### [facility] CLIA [id number] [address] [place] [address] [place] Immature granulocytes/100 WBC (Bld) 0.1 % Normal [facility] Comment on above: Order Comment: Speci men Type: BLOOD SPECIMEN Ordering Facility: [facility] Address: [address] [place] [address] Performed By: #### 4 537-7, 10831-4 #### [facility] CLIA [id number] [address] [place] [address] [place] Lymphocytes (Bld) [#/Vol] 2.41 10*3/uL Normal 1.00-4.00 [facility] Comment on above: Order Comment: Speci men Type: BLOOD SPECIMEN Ordering Facility: [facility] Address: [address] [place] [address] Performed By: #### 4 537-7, 64644-0 #### [facility] CLIA [id number] [address] [place] [address] [place] Lymphocytes/100 WBC (Bld) 33.8 % Normal [facility] Comment on above: Order Comment: Speci men Type: BLOOD SPECIMEN Ordering Facility: [facility] Address: [address] [place] [address] Performed By: #### 4 537-7, 72101-0 #### [facility] CLIA [id number] [address] [place] [address] [place] MCH (RBC) [Entitic mass] 28.8 pg Normal 26.0-34.0 [facility] Comment on above: Order Comment: Speci men Type: BLOOD SPECIMEN Ordering Facility: [facility] Address: [address] [place] [address] Performed By: #### 4 537-7, 07659-2 #### [facility] CLIA [id number] [address] [place] [address] [place] MCHC (RBC) [Mass/Vol] 32.8 g/dL Normal 30.5-36.0 [facility] Comment on above: Order Comment: Speci men Type: BLOOD SPECIMEN Ordering Facility: [facility] Address: [address] [place] [address] Performed By: #### 4 537-7, 17237-8 #### [facility] CLIA [id number] [address] [place] [address] [place] MCV (RBC) [Entitic vol] 87.8 fL Normal 80.0-100.0 [facility] Comment on above: Order Comment: Speci men Type: BLOOD SPECIMEN Ordering Facility: [facility] Address: [address] [place] [address] Performed By: #### 4 537-7, 26109-6 #### [facility] CLIA [id number] [address] [place] [address] [place] Monocytes (Bld) [#/Vol] 0.57 10*3/uL Normal <0.87 [facility] Comment on above: Order Comment: Speci men Type: BLOOD SPECIMEN Ordering Facility: [facility] Address: [address] [place] [address] Performed By: #### 4 537-7, 88834-6 #### [facility] CLIA [id number] [address] [place] [address] [place] Monocytes/100 WBC (Bld) 8.0 % Normal [facility] Comment on above: Order Comment: Speci men Type: BLOOD SPECIMEN Ordering Facility: [facility] Address: [address] [place] [address] Performed By: #### 4 537-7, 00652-4 #### [facility] CLIA [id number] [address] [place] [address] [place] Neutrophils (Bld) [#/Vol] 4.02 10*3/uL Normal 1.45-7.50 [facility] Comment on above: Order Comment: Speci men Type: BLOOD SPECIMEN Ordering Facility: [facility] Address: [address] [place] [address] Performed By: #### 4 537-7, 70249-0 #### [facility] CLIA [id number] [address] [place] [address] [place] Neutrophils/100 WBC (Bld) 56.2 % Normal [facility] Comment on above: Order Comment: Speci men Type: BLOOD SPECIMEN Ordering Facility: [facility] Address: [address] [place] [address] Performed By: #### 4 537-7, 27037-7 #### [facility] CLIA [id number] [address] [place] [address] [place] Nucleated RBC (Bld) [#/Vol] 10*3/uL Normal <0.01 [facility] Comment on above: Order Comment: Speci men Type: BLOOD SPECIMEN Ordering Facility: [facility] Address: [address] [place] [address] Performed By: #### 4 537-7, 43456-7 #### [facility] CLIA [id number] [address] [place] [address] [place] Nucleated RBC/100 WBC (Bld) [Ratio] 0.0 /100 WBC Normal [facility] Comment on above: Order Comment: Speci men Type: BLOOD SPECIMEN Ordering Facility: [facility] Address: [address] [place] [address] Performed By: #### 4 537-7, 45137-8 #### [facility] CLIA [id number] [address] [place] [address] [place] Platelet mean volume (Bld) [Entitic vol] 11.1 fL Normal 9.0-12.7 [facility] Comment on above: Order Comment: Speci men Type: BLOOD SPECIMEN Ordering Facility: [facility] Address: [address] [place] [address] Performed By: #### 4 537-7, 69439-9 #### [facility] CLIA [id number] [address] [place] [address] [place] Platelets (Bld) [#/Vol] 256 10*3/uL Normal 150-400 [facility] Comment on above: Order Comment: Speci men Type: BLOOD SPECIMEN Ordering Facility: [facility] Address: [address] [place] [address] Performed By: #### 4 537-7, 70196-2 #### [facility] CLIA [id number] [address] [place] [address] [place] RBC (Bld) [#/Vol] 4.03 10*6/uL Normal 3.90-5.20 [facility] Comment on above: Order Comment: Speci men Type: BLOOD SPECIMEN Ordering Facility: [facility] Address: [address] [place] [address] Performed By: #### 4 537-7, 82397-9 #### [facility] CLIA [id number] [address] [place] [address] [place] WBC (Bld) [#/Vol] 7.14 10*3/uL Normal 3.70-11.00 [facility] Comment on above: Order Comment: Speci men Type: BLOOD SPECIMEN Ordering Facility: [facility] Address: [address] [place] [address] Performed By: #### 4 537-7, 83239-8 #### [facility] CLIA [id number] [address] [place] [address] [place] CRP SerPl-mCncon 01-16-2025 CRP [Mass/Vol] mg/L Normal <0.9 [facility] Comment on above: Order Comment: Speci men Type: BLOOD SPECIMEN Ordering Facility: [facility] Address: [address] [place] [address] Performed By: #### 1 989-3 #### [facility] CLIA [id number] [address] [place] [id number] [place] Comprehensive metabolic 2000 panelon 01-16-2025 Albumin [Mass/Vol] 4.6 g/dL Normal 3.9-4.9 [facility] Comment on above: Order Comment: Speci men Type: BLOOD SPECIMEN Ordering Facility: [facility] Address: [address] [place] [address] Performed By: #### 1 989-3 #### [facility] CLIA [id number] [address] [place], [place] [address] [place] ALP [Catalytic activity/Vol] 51 U/L Normal 34-123 [facility] Comment on above: Order Comment: Speci men Type: BLOOD SPECIMEN Ordering Facility: [facility] Address: [address] [place] [address] Performed By: #### 1 989-3 #### [facility] CLIA [id number] [address] [place] [address] [place] ALT [Catalytic activity/Vol] 31 U/L Normal 7-38 [facility] Comment on above: Order Comment: Speci men Type: BLOOD SPECIMEN Ordering Facility: [facility] Address: [address] [place] [address] Performed By: #### 1 989-3 #### [facility] CLIA [id number] [address] [place] [address] [place] Anion gap [Moles/Vol] 12 mmol/L Normal 8-15 [facility] Comment on above: Order Comment: Speci men Type: BLOOD SPECIMEN Ordering Facility: [facility] Address: [address] [place] [address] Performed By: #### 1 989-3 #### [facility] CLIA [id number] [address] [place], [place] [address] [place] AST [Catalytic activity/Vol] 20 U/L Normal 13-35 [facility] Comment on above: Order Comment: Speci men Type: BLOOD SPECIMEN Ordering Facility: [facility] Address: [address] [place], [place] [address] Performed By: #### 1 989-3 #### [facility] CLIA [id number] [address] [place], [place] [address] [place] Bilirubin [Mass/Vol] mg/dL Low 0.2-1.3 [facility] Comment on above: Order Comment: Speci men Type: BLOOD SPECIMEN Ordering Facility: [facility] Address: [address] [place], [place] [address] Performed By: #### 1 989-3 #### [facility] CLIA [id number] [address] [place] [address] [place] Calcium [Mass/Vol] 9.5 mg/dL Normal 8.5-10.2 [facility] Comment on above: Order Comment: Speci men Type: BLOOD SPECIMEN Ordering Facility: [facility] Address: [address] [place] [address] Performed By: #### 1 989-3 #### [facility] CLIA [id number] [address] [place] [address] [place] Chloride [Moles/Vol] 103 mmol/L Normal 98-107 [facility] Comment on above: Order Comment: Speci men Type: BLOOD SPECIMEN Ordering Facility: [facility] Address: [address] [place], [place] [address] Performed By: #### 1 989-3 #### [facility] CLIA [id number] [address] [place], [place] [address] [place] CO2 [Moles/Vol] 23 mmol/L Normal 22-30 [facility] Comment on above: Order Comment: Speci men Type: BLOOD SPECIMEN Ordering Facility: [facility] Address: [address] [place], [place] [address] Performed By: #### 1 989-3 #### [facility] CLIA [id number] [address] [place], [place] [address] [place] Creatinine [Mass/Vol] 0.66 mg/dL Normal 0.58-0.96 [facility] Comment on above: Order Comment: Isacc lo Type: BLOOD SPECIMEN Ordering Facility: [facility] Address: [address] [place] [address] Performed By: #### 1 989-3 #### [facility] CLIA [id number] [address] [place] [address] [facility] Creatinine and Glomerular filtration rate.predicted panel (S/P/Bld) 119 mL/min/1.73m??? Normal >=60 [facility] Comment on above: Order Comment: Isacc lo Type: BLOOD SPECIMEN Ordering Facility: [facility] Address: [address] [place] [address] Result Comment: Isabella mated Glomerular Filtration Rate (eGFR) is calculated using the 2020 CKD-EPI creatinine equation. This equation utilizes serum creatinine, sex, and age as parameters. The creatinine assay has traceable calibration to isotope dilution-mass spectrometry. Refer to KDIGO guidelines for clinical interpretation. In patients with unstable renal function, e.g. those with acute kidney injury, the eGFR may not accurately reflect actual GFR. Performed By: #### 1 989-3 #### [facility] CLIA [id number] [address] [place] [address] [place] Glucose [Mass/Vol] 100 mg/dL High 74-99 [facility] Comment on above: Order Comment: Isacc lo Type: BLOOD SPECIMEN Ordering Facility: [facility] Address: [address] [place] [address] Result Comment: The [place] [employer] (ADA) provides guidance for cutoff values for fasting glucose and random glucose. The ADA defines fasting as no caloric intake for at least 8 hours. Fasting plasma glucose results between 100 to 125 mg/dL indicate increased risk for diabetes (prediabetes). Fasting plasma glucose results greater than or equal to 126 mg/dL meet the criteria for diagnosis of diabetes. In the absence of unequivocal hyperglycemia, results should be confirmed by repeat testing. In a patient with classic symptoms of hyperglycemia or hyperglycemic crisis, random plasma glucose results greater than or equal to 200 mg/dL meet the criteria for diagnosis of diabetes. Reference: Standards of Medical Care in Diabetes 2016, [place] [employer]. Diabetes Care. 2016.39(Suppl 1). Performed By: #### 1 989-3 #### [facility] CLIA [id number] [address] [place] [address] [place] Potassium [Moles/Vol] 4.1 mmol/L Normal 3.7-5.1 [facility] Comment on above: Order Comment: Speci men Type: BLOOD SPECIMEN Ordering Facility: [facility] Address: [address] [place] [address] Performed By: #### 1 989-3 #### [facility] CLIA [id number] [address] [place] [address] [place] Protein [Mass/Vol] 7.0 g/dL Normal 6.3-8.0 [facility] Comment on above: Order Comment: Speci men Type: BLOOD SPECIMEN Ordering Facility: [facility] Address: [address] [place] [address] Performed By: #### 1 989-3 #### [facility] CLIA [id number] [address] [place] [address] [place] Sodium [Moles/Vol] 138 mmol/L Normal 136-144 [facility] Comment on above: Order Comment: Speci men Type: BLOOD SPECIMEN Ordering Facility: [facility] Address: [address] [place] [address] Performed By: #### 1 989-3 #### [facility] CLIA [id number] [address] [place] [address] [place] Urea nitrogen [Mass/Vol] 11 mg/dL Normal 7-21 [facility] Comment on above: Order Comment: Speci men Type: BLOOD SPECIMEN Ordering Facility: [facility] Address: [address] [place] [address] Performed By: #### 1 989-3 #### [facility] CLIA [id number] [address] [place] [address] [place] Creatinine Unsp time (U) [Ma ss/Vol]on 01-16-2025 Creatinine (U) [Mass/Vol] 85.7 mg/dL Normal 20.0-300.0 [facility] Comment on above: Order Comment: Speci men Type: BLOOD SPECIMEN Ordering Facility: [facility] Address: [address] [place] [address] Performed By: #### 1 989-3 #### [facility] CLIA [id number] [address] [place] [address] [place] Cyclic citrullinated peptide IgG Qnon 01-16-2025 [facility] ANTIBODY IGG QUALITATIVE Negative Normal Negative [facility] Comment on above: Order Comment: Speci men Type: BLOOD SPECIMEN Ordering Facility: [facility] Address: [address] [place] [address] Performed By: #### 3 3935-8 #### [facility] [place] [id number] [address] [place] [address] [place] ESR Westergren method (Bld) [Velocity]on 01-16-2025 ESR (Bld) [Velocity] 5 mm/h Normal 0-20 [facility] Comment on above: Order Comment: Speci men Type: BLOOD SPECIMEN Ordering Facility: [facility] Address: [address] [place] [address] Performed By: #### 4 537-7, 91200-5 #### [facility] IA [id number] [address] [place] [address] [place] HBV core Ab Ser Qlon 025 HBV core Ab Ql (S) Negative Normal Negative [facility] Comment on above: Order Comment: Speci men Type: BLOOD SPECIMEN Ordering Facility: [facility] Address: [address] [place] [address] Result Comment: No e vidence of current or past infection with Hepatitis B virus. Should recent infection be suspected, repeat testing may be considered 3-4 weeks after this draw. Performed By: #### 2 2322-2, 5195-3, 93621-6 #### [facility] CLIA [id number] [address] [place] [address] [place] HBV surface Ab Ql (S)on HBV surface Ab Qn (S) <8.00 Normal [facility] Comment on above: Order Comment: Speci men Type: BLOOD SPECIMEN Ordering Facility: [facility] Address: [address] [place] [address] Result Comment: <8 m IU/mL: No serological evidence of immunity to Hepatitis B Virus. >/= 8 to <12 mIU/mL: No serological evidence of immunity to Hepatitis B Virus. >/= 12 mIU/mL: Consistent with serological evidence of immunity to Hepatitis B Virus. Performed By: #### 2 2322-2, 5195-3, 61729-2 #### [facility] CLIA [id number] [address] [place] [address] [place] HBV surface Ab Ser Qlon HBV surface Ab Ql (S) Negative Normal [facility] Comment on above: Order Comment: Speci men Type: BLOOD SPECIMEN Ordering Facility: [facility] Address: [address] [place] [address] Result Comment: No s erological evidence of immunity to Hepatitis B Virus. Performed By: #### 2 2322-2, 5195-3, 52826-7 #### [facility] CLIA [id number] [address] [place] [address] [place] HBV surface Ag Ser Qlon HBV surface Ag Ql (S) Negative Normal Negative [facility] Comment on above: Order Comment: Speci men Type: BLOOD SPECIMEN Ordering Facility: [facility] Address: [address] [place] [address] Performed By: #### 2 2322-2, 5195-3, 69508-4 #### [facility] CLIA [id number] [address] [place] [address] [place] HCV Ab Ser Qlon 01-16-2025 HCV Ab Ql (S) Negative Normal Negative [facility] Comment on above: Order Comment: Speci men Type: BLOOD SPECIMEN Ordering Facility: [facility] Address: [address] [place] [address] Result Comment: The result suggests no evidence of infection with Hepatitis C virus. Should recent infection be suspected, repeat testing may be considered 4-6 weeks after this draw. Performed By: #### 1 6128-1 #### [facility] CLIA [id number] [address] [place] [address] [place] No Panel Informationon 01-16 Radiology Study observation (narrative) [facility] Prot Ur-mCncon 01-16-2025 Protein (U) [Mass/Vol] 7 mg/dL Normal 0-20 [facility] Comment on above: Order Comment: Speci men Type: BLOOD SPECIMEN Ordering Facility: [facility] Address: [address] [place] [address] Performed By: #### 1 989-3 #### [facility] CLIA [id number] [address] [place] [address] [place] Rheumatoid fact SerPl-aCncon 01-16-2025 Rheumatoid factor Qn [IU]/mL Normal <16 [facility] Comment on above: Order Comment: Speci men Type: BLOOD SPECIMEN Ordering Facility: [facility] Address: [address] [place] [address] Performed By: #### 1 989-3 #### [facility] CLIA [id number] [address] [place] [address] [place] TPMT PHENOTYPE/ENZYME ACTIVI TYon 01-16-2025 TPMT ACTIVITY 25.8 U/mL Normal 24.0-44.0 [facility] Comment on above: Order Comment: Isacc lo Type: BLOOD SPECIMEN Ordering Facility: [facility] Address: [address] [id number] Result Comment: INTE RPRETIVE INFORMATION: Thiopurine Methyltransferase, RBC Normal TPMT activity: 24.0-44.0 U/mL................Individuals are predicted to be at low risk of bone marrow toxicity (myelosuppression) as a consequence of standard thiopurine therapy; no dose adjustment is recommended. Intermediate TPMT activity: 17.0-23.9 U/mL................Individuals are predicted to be at intermediate risk of bone marrow toxicity (myelosuppression) as a consequence of standard thiopurine therapy; a dose reduction and therapeutic drug management is recommended. Low TPMT activity: less than 17.0 U/mL...........Individuals are predicted to be at high risk of bone marrow toxicity (myelosuppression) as a consequence of standard thiopurine dosing. It is recommended to avoid the use of thiopurine drugs. High TPMT activity: greater than 44.0 U/mL........Individuals are not predicted to be at risk for bone marrow toxicity (myelosuppression) as a consequence of standard thiopurine dosing, but may be at risk for therapeutic failure due to excessive inactivation of thiopurine drugs. Individuals may require higher than the normal standard dose. Therapeutic drug management is recommended. The TPMT, RBC assay is used as a screen to detect individuals with low and intermediate TPMT activity who may be at risk for myelosuppression when exposed to standard doses of thiopurines, including azathioprine (Imuran) and 6-mercaptopurine (Purinethol). TPMT is the primary metabolic route for inactivation of thiopurine drugs in the bone marrow. When TPMT activity is low, it is predicted that proportionately more 6-mercaptopurine can be converted into the cytotoxic 6-thioguanine nucleotides that accumulate in the bone marrow causing excessive toxicity. The activity of TPMT is measured by the nanomoles of 6-methylmercaptopurine (inactive metabolite) produced per 1 mL of packed red blood cells, (U/mL). TPMT phenotype testing does not replace the need for clinical monitoring of patients treated with thiopurine drugs. Genotype for TPMT cannot be inferred from TPMT activity (phenotype). Phenotype testing should not be requested for patients currently treated with thiopurine drugs. Current TPMT phenotype may not reflect future TPMT phenotype, particularly in patients who received blood transfusion within 30-60 days of testing. TPMT enzyme activity can be inhibited by several drugs such as: naproxen (Aleve), ibuprofen (Advil, Motrin), ketoprofen (Orudis), furosemide (Lasix), sulfasalazine (Azulfidine), mesalamine (Asacol), olsalazine (Dipentum), mefenamic acid (Ponstel), thiazide diuretics, and benzoic acid inhibitors. TPMT inhibitors may contribute to falsely low results; patients should abstain from these drugs for at least 48 hours prior to TPMT testing. Falsely low results may also occur as a result of inappropriate specimen handling and hemolysis. This test was developed and its performance characteristics determined by [facility]. It has not been cleared or approved by the [place] Food and Drug Administration. This test was performed in a CLIA certified laboratory and is intended for clinical purposes. Performed By: [facility] [address] [place] [address] Wine Fermenter: John Singer MD, PhD CLIA Number: [id number] Performed By: #### P ABDOULAYE #### [facility] CLIA [id number] [address] [place] [address] Urinalysis complete panel (U )on 01-16-2025 Bacteria LM.HPF (Urine sed) [#/Area] Negative Normal Negative [facility] Comment on above: Order Comment: Speci men Type: URINE SPECIMEN Ordering Facility: [facility] Address: [address] [place] [address] Performed By: #### 2 4356-8 #### [facility] CLIA [id number] [address] [place] [address] [place] Bilirubin Ql (U) Negative Normal Negative [facility] Comment on above: Order Comment: Speci men Type: URINE SPECIMEN Ordering Facility: [facility] Address: [address] [place] [address] Performed By: #### 2 4356-8 #### [facility] CLIA [id number] [address] [place] [address] [place] Clarity (Unsp spec) Clear Normal Clear [facility] Comment on above: Order Comment: Speci men Type: URINE SPECIMEN Ordering Facility: [facility] Address: [address] [place] [address] Performed By: #### 2 4356-8 #### [facility] CLIA [id number] [address] [place] [address] [place] Color (U) Yellow Normal Yellow [facility] Comment on above: Order Comment: Speci men Type: URINE SPECIMEN Ordering Facility: [facility] Address: [address] [place] [address] Performed By: #### 2 4356-8 #### [facility] CLIA [id number] [address] [place] [address] [place] Epithelial cells LM.HPF (Urine sed) [#/Area] None Seen Normal [facility] Comment on above: Order Comment: Speci men Type: URINE SPECIMEN Ordering Facility: [facility] Address: [address] [place] [address] Performed By: #### 2 4356-8 #### [facility] CLIA [id number] [address] [place] [address] [place] Glucose Test strip (U) [Mass/Vol] Negative Normal Negative [facility] Comment on above: Order Comment: Speci men Type: URINE SPECIMEN Ordering Facility: [facility] Address: [address] [place] [address] Performed By: #### 2 4356-8 #### [facility] CLIA [id number] [address] [place] [address] [place] Hemoglobin Ql (U) Negative Normal Negative [facility] Comment on above: Order Comment: Speci men Type: URINE SPECIMEN Ordering Facility: [facility] Address: [address] [place] [address] Performed By: #### 2 4356-8 #### [facility] CLIA [id number] [address] [place] [address] [place] Hyaline casts (Urine sed) [#/Area] 0 /[LPF] Normal 0 /LPF [facility] Comment on above: Order Comment: Speci men Type: URINE SPECIMEN Ordering Facility: [facility] Address: [address] [place] [address] Performed By: #### 2 4356-8 #### [facility] CLIA [id number] [address] [place] [address] [place] Ketones Ql (U) Negative Normal Negative [facility] Comment on above: Order Comment: Speci men Type: URINE SPECIMEN Ordering Facility: [facility] Address: [address] [place] [address] Performed By: #### 2 4356-8 #### [facility] CLIA [id number] [address] [place] [address] [place] Leukocyte esterase Test strip Ql (U) Trace Abnormal Negative [facility] Comment on above: Order Comment: Speci men Type: URINE SPECIMEN Ordering Facility: [facility] Address: [address] [place] [address] Performed By: #### 2 4356-8 #### [facility] CLIA [id number] [address] [place] [address] [place] Nitrite Ql (U) Negative Normal Negative [facility] Comment on above: Order Comment: Speci men Type: URINE SPECIMEN Ordering Facility: [facility] Address: [address] [place] [address] Performed By: #### 2 4356-8 #### [facility] CLIA [id number] [address] [place] [address] [place] pH (U) 6.5 [pH] Normal <8.5 [facility] Comment on above: Order Comment: Speci men Type: URINE SPECIMEN Ordering Facility: [facility] Address: [address] [place] [address] Performed By: #### 2 4356-8 #### [facility] CLIA [id number] [address] [place] [address] [place] Protein (U) [Mass/Vol] Negative Normal Negative [facility] Comment on above: Order Comment: Speci men Type: URINE SPECIMEN Ordering Facility: [facility] Address: [address] [place] [address] Performed By: #### 2 4356-8 #### [facility] CLIA [id number] [address] [place] [address] [place] RBC LM.HPF (Urine sed) [#/Area] 0-2 /HPF Normal 0-2 /HPF [facility] Comment on above: Order Comment: Speci men Type: URINE SPECIMEN Ordering Facility: [facility] Address: [address] [place] [address] Performed By: #### 2 4356-8 #### [facility] CLIA [id number] [address] [place] [address] [place] Specific gravity (U) [Rel density] 1.019 Normal 1.005-1.03 0 [facility] Comment on above: Order Comment: Speci men Type: URINE SPECIMEN Ordering Facility: [facility] Address: [address] [place] [address] Performed By: #### 2 4356-8 #### [facility] CLIA [id number] [address] [place] [address] [place] Urobilinogen Ql (U) 0.2 EU/dL Normal 0.2-1.0 EU/dL [facility] Comment on above: Order Comment: Speci men Type: URINE SPECIMEN Ordering Facility: [facility] Address: [address] [place] [address] Performed By: #### 2 4356-8 #### [facility] CLIA [id number] [address] [place] [address] [place] WBC LM.HPF (Urine sed) [#/Area] 0-5 /HPF Normal 0-5 /HPF [facility] Comment on above: Order Comment: Speci men Type: URINE SPECIMEN Ordering Facility: [facility] Address: [address] [place] [address] Performed By: #### 2 4356-8 #### [facility] CLIA [id number] [address] [place] [address] [place] XR HAND 3V PA/LAT/OBL LTon 0 01-16-2025 XR HAND 3V PA/LAT/OBL LT * * *Final Report* * * DATE OF EXAM: Jan 16 2025 5:48PM WOX 5345 - XR HAND 3V PA/LAT/OBL LT / PROCEDURE REASON: Pain in joint, multiple sites * * * * Physician Interpretation * * * * EXAM(s): XR HAND 3V PA/LAT/OBL LT..... HISTORY: 34 years old Clinical information: Pain in joint, multiple sites pt has been experiencing pain in multiple joints for 6 months after a diagnosis of crohn's and celiac disease. TECHNIQUE: Images: XR HAND 3V PA/LAT/OBL LT Comparison: None. RESULT: Findings: No osseous, joint space, or soft tissue abnormality identified. No fracture or dislocation.. IMPRESSION: No acute abnormality Rocket Assembly Operator[facility] Transcribe Date/Time: Jan 16 2025 6:22P Dictated by : KOKI FOY MD This examination was interpreted and the report reviewed and electronically signed by: KOKI FOY MD on Jan 16 2025 6:23PM EST [id number] Normal [facility] XR HAND 3V PA/LAT/OBL RTon 0 01-16-2025 XR HAND 3V PA/LAT/OBL RT * * *Final Report* * * DATE OF EXAM: Jan 16 2025 5:48PM WOX 5346 - XR HAND 3V PA/LAT/OBL RT / PROCEDURE REASON: Pain in joint, multiple sites * * * * Physician Interpretation * * * * EXAM(s): XR HAND 3V PA/LAT/OBL RT..... HISTORY: 34 years old Clinical information: Pain in joint, multiple sites pt has been experiencing pain in multiple joints for 6 months after a diagnosis of crohn's and celiac disease. TECHNIQUE: Images: XR HAND 3V PA/LAT/OBL RT Comparison: None. RESULT: Findings: No osseous, joint space, or soft tissue abnormality identified. There are no fractures. Carpal bones intact. No soft tissue swelling.. IMPRESSION: No acute abnormality Rocket Assembly Operator: [facility] Transcribe Date/Time: Jan 16 2025 6:23P Dictated by : KOKI FOY MD This examination was interpreted and the report reviewed and electronically signed by: KOKI FOY MD on Jan 16 2025 6:24PM EST [id number] Normal [facility] XR Hand - left PA and Latera l and Obliqueon 01-16-2025 IMPRESSION: No acute abnormality Rocket Assembly Operator: [facility] Transcribe Date/Time: Jan 16 2025 6:22P Dictated by : KOKI FOY MD This examination was interpreted and the report reviewed and electronically signed by: KOKI FOY MD on Jan 16 2025 6:23PM EST DIVISION OF RADIOLOGY * * *Final Report* * * DATE OF EXAM: Jan 16 2025 5:48PM WOX 5345 - XR HAND 3V PA/LAT/OBL LT / PROCEDURE REASON: Pain in joint, multiple sites * * * * Physician Interpretation * * * * EXAM(s): XR HAND 3V PA/LAT/OBL LT..... HISTORY: 34 years old Clinical information: Pain in joint, multiple sites pt has been experiencing pain in multiple joints for 6 months after a diagnosis of crohn's and celiac disease. TECHNIQUE: Images: XR HAND 3V PA/LAT/OBL LT Comparison: None. RESULT: Findings: No osseous, joint space, or soft tissue abnormality identified. No fracture or dislocation.. DIVISION OF RADIOLOGY Provider, [facility] - 01/16/2025 * * *Final Report* * * DATE OF EXAM: Jan 16 2025 5:48PM WOX 5345 - XR HAND 3V PA/LAT/OBL LT / PROCEDURE REASON: Pain in joint, multiple sites * * * * Physician Interpretation * * * * EXAM(s): XR HAND 3V PA/LAT/OBL LT..... HISTORY: 34 years old Clinical information: Pain in joint, multiple sites pt has been experiencing pain in multiple joints for 6 months after a diagnosis of crohn's and celiac disease. TECHNIQUE: Images: XR HAND 3V PA/LAT/OBL LT Comparison: None. RESULT: Findings: No osseous, joint space, or soft tissue abnormality identified. No fracture or dislocation.. IMPRESSION IMPRESSION: No acute abnormality Rocket Assembly Operator: [facility] Transcribe Date/Time: Jan 16 2025 6:22P Dictated by : KOKI FOY MD This examination was interpreted and the report reviewed and electronically signed by: KOKI FOY MD on Jan 16 2025 6:23PM EST [facility] XR Hand - right PA and Later al and Obliqueon 01-16-2025 IMPRESSION: No acute abnormality Rocket Assembly Operator: [facility] Transcribe Date/Time: Jan 16 2025 6:23P Dictated by : KOKI FOY MD This examination was interpreted and the report reviewed and electronically signed by: KOKI FOY MD on Jan 16 2025 6:24PM EST DIVISION OF RADIOLOGY * * *Final Report* * * DATE OF EXAM: Jan 16 2025 5:48PM WOX 5346 - XR HAND 3V PA/LAT/OBL RT / PROCEDURE REASON: Pain in joint, multiple sites * * * * Physician Interpretation * * * * EXAM(s): XR HAND 3V PA/LAT/OBL RT..... HISTORY: 34 years old Clinical information: Pain in joint, multiple sites pt has been experiencing pain in multiple joints for 6 months after a diagnosis of crohn's and celiac disease. TECHNIQUE: Images: XR HAND 3V PA/LAT/OBL RT Comparison: None. RESULT: Findings: No osseous, joint space, or soft tissue abnormality identified. There are no fractures. Carpal bones intact. No soft tissue swelling.. DIVISION OF RADIOLOGY Provider, [facility] - 01/16/2025 * * *Final Report* * * DATE OF EXAM: Jan 16 2025 5:48PM WOX 5346 - XR HAND 3V PA/LAT/OBL RT / PROCEDURE REASON: Pain in joint, multiple sites * * * * Physician Interpretation * * * * EXAM(s): XR HAND 3V PA/LAT/OBL RT..... HISTORY: 34 years old Clinical information: Pain in joint, multiple sites pt has been experiencing pain in multiple joints for 6 months after a diagnosis of crohn's and celiac disease. TECHNIQUE: Images: XR HAND 3V PA/LAT/OBL RT Comparison: None. RESULT: Findings: No osseous, joint space, or soft tissue abnormality identified. There are no fractures. Carpal bones intact. No soft tissue swelling.. IMPRESSION IMPRESSION: No acute abnormality Rocket Assembly Operator: [facility] Transcribe Date/Time: Jan 16 2025 6:23P Dictated by : KOKI FOY MD This examination was interpreted and the report reviewed and electronically signed by: KOKI FOY MD on Jan 16 2025 6:24PM EST [facility] XR KNEE SURVEY 1V AP BILon 0 01-16-2025 XR KNEE SURVEY 1V AP DAO * * *Final Report* * * DATE OF EXAM: Jan 16 2025 5:48PM WOX 5213 - XR KNEE SURVEY 1V AP DAO / PROCEDURE REASON: Pain in joint, multiple sites * * * * Physician Interpretation * * * * EXAM(s): XR KNEE SURVEY 1V AP DAO..... HISTORY: 34 years old Clinical information: Pain in joint, multiple sites pt has been experiencing pain in multiple joints for 6 months after a diagnosis of crohn's and celiac disease. TECHNIQUE: Images: XR KNEE SURVEY 1V AP DAO Comparison: None. RESULT: Findings: Postsurgical changes distal left femur and proximal tibia consistent with previous ligamentous repair. A surgical clip superimposes the upper left patella. Joint spaces normally maintained. No intra-articular loose bodies. No pathological calcifications.. IMPRESSION: Postsurgical changes, distal left femur and proximal left tibia. Rocket Assembly Operator: [facility] Transcribe Date/Time: Jan 16 2025 6:19P Dictated by : KOKI FOY MD This examination was interpreted and the report reviewed and electronically signed by: KOKI FOY MD on Jan 16 2025 6:21PM EST [id number] Normal [facility] XR Knee - bilateral APon IMPRESSION: Postsurgical changes, distal left femur and proximal left tibia. Rocket Assembly Operator: [facility] Transcribe Date/Time: Jan 16 2025 6:19P Dictated by : KOKI FOY MD This examination was interpreted and the report reviewed and electronically signed by: KOKI FOY MD on Jan 16 2025 6:21PM [facility] DIVISION OF RADIOLOGY * * *Final Report* * * DATE OF EXAM: Jan 16 2025 5:48PM WOX 5213 - XR KNEE SURVEY 1V AP DAO / PROCEDURE REASON: Pain in joint, multiple sites * * * * Physician Interpretation * * * * EXAM(s): XR KNEE SURVEY 1V AP DAO..... HISTORY: 34 years old Clinical information: Pain in joint, multiple sites pt has been experiencing pain in multiple joints for 6 months after a diagnosis of crohn's and celiac disease. TECHNIQUE: Images: XR KNEE SURVEY 1V AP DAO Comparison: None. RESULT: Findings: Postsurgical changes distal left femur and proximal tibia consistent with previous ligamentous repair. A surgical clip superimposes the upper left patella. Joint spaces normally maintained. No intra-articular loose bodies. No pathological calcifications.. DIVISION OF RADIOLOGY Provider, [facility] - 01/16/2025 * * *Final Report* * * DATE OF EXAM: Jan 16 2025 5:48PM WOX 5213 - XR KNEE SURVEY 1V AP DAO / PROCEDURE REASON: Pain in joint, multiple sites * * * * Physician Interpretation * * * * EXAM(s): XR KNEE SURVEY 1V AP DAO..... HISTORY: 34 years old Clinical information: Pain in joint, multiple sites pt has been experiencing pain in multiple joints for 6 months after a diagnosis of crohn's and celiac disease. TECHNIQUE: Images: XR KNEE SURVEY 1V AP DAO Comparison: None. RESULT: Findings: Postsurgical changes distal left femur and proximal tibia consistent with previous ligamentous repair. A surgical clip superimposes the upper left patella. Joint spaces normally maintained. No intra-articular loose bodies. No pathological calcifications.. IMPRESSION IMPRESSION: Postsurgical changes, distal left femur and proximal left tibia. Rocket Assembly Operator: [facility] Transcribe Date/Time: Jan 16 2025 6:19P Dictated by : KOKI FOY MD This examination was interpreted and the report reviewed and electronically signed by: KOKI FOY MD on Jan 16 2025 6:21PM EST [facility] XR LUMBAR 3V AP/LAT/L5-S1on 01-16-2025 XR LUMBAR 3V AP/LAT/L5-S1 * * *Final Report* * * DATE OF EXAM: Jan 16 2025 5:48PM WOX 5228 - XR LUMBAR 3V AP/LAT/L5-S1 / PROCEDURE REASON: Pain in joint, multiple sites * * * * Physician Interpretation * * * * EXAM(s): XR LUMBAR 3V AP/LAT/L5-S1..... HISTORY: 34 years old Clinical information: Pain in joint, multiple sites pt has been experiencing pain in multiple joints for 6 months after a diagnosis of crohn's and celiac disease. TECHNIQUE: Images: XR LUMBAR 3V AP/LAT/L5-S1 Comparison: Lumbar spine: HISTORY: Indication: Pain in joint, multiple sites pt has been experiencing pain in multiple joints for 6 months after a diagnosis of crohn's and celiac disease. pt has been experiencing pain in multiple joints for 6 months after a diagnosis of crohn's and celiac disease. TECHNIQUE: Images: XR LUMBAR 3V AP/LAT/L5-S1 Comparison: None. RESULT: Findings: No narrowing of the disk spaces is seen. The vertebra are in good alignment . No fractures or dislocations are seen. IMPRESSION: Negative exam . Rocket Assembly Operator: JOSELUIS Transcribe Date/Time: Jan 16 2025 6:21P Dictated by : KOKI FOY MD This examination was interpreted and the report reviewed and electronically signed by: KOKI FOY MD on Jan 16 2025 6:22PM EST [id number] Normal [facility] XR Lumbar spine 3 Viewson IMPRESSION: Negative exam . Rocket Assembly Operator: PSCB Transcribe Date/Time: Jan 16 2025 6:21P Dictated by : KOKI FOY MD This examination was interpreted and the report reviewed and electronically signed by: KOKI FOY MD on Jan 16 2025 6:22PM EST DIVISION OF RADIOLOGY * * *Final Report* * * DATE OF EXAM: Jan 16 2025 5:48PM WOX 5228 - XR LUMBAR 3V AP/LAT/L5-S1 / PROCEDURE REASON: Pain in joint, multiple sites * * * * Physician Interpretation * * * * EXAM(s): XR LUMBAR 3V AP/LAT/L5-S1..... HISTORY: 34 years old Clinical information: Pain in joint, multiple sites pt has been experiencing pain in multiple joints for 6 months after a diagnosis of crohn's and celiac disease. TECHNIQUE: Images: XR LUMBAR 3V AP/LAT/L5-S1 Comparison: Lumbar spine: HISTORY: Indication: Pain in joint, multiple sites pt has been experiencing pain in multiple joints for 6 months after a diagnosis of crohn's and celiac disease. pt has been experiencing pain in multiple joints for 6 months after a diagnosis of crohn's and celiac disease. TECHNIQUE: Images: XR LUMBAR 3V AP/LAT/L5-S1 Comparison: None. RESULT: Findings: No narrowing of the disk spaces is seen. The vertebra are in good alignment . No fractures or dislocations are seen. DIVISION OF RADIOLOGY Provider, [facility] - 01/16/2025 * * *Final Report* * * DATE OF EXAM: Jan 16 2025 5:48PM WOX 5228 - XR LUMBAR 3V AP/LAT/L5-S1 / PROCEDURE REASON: Pain in joint, multiple sites * * * * Physician Interpretation * * * * EXAM(s): XR LUMBAR 3V AP/LAT/L5-S1..... HISTORY: 34 years old Clinical information: Pain in joint, multiple sites pt has been experiencing pain in multiple joints for 6 months after a diagnosis of crohn's and celiac disease. TECHNIQUE: Images: XR LUMBAR 3V AP/LAT/L5-S1 Comparison: Lumbar spine: HISTORY: Indication: Pain in joint, multiple sites pt has been experiencing pain in multiple joints for 6 months after a diagnosis of crohn's and celiac disease. pt has been experiencing pain in multiple joints for 6 months after a diagnosis of crohn's and celiac disease. TECHNIQUE: Images: XR LUMBAR 3V AP/LAT/L5-S1 Comparison: None. RESULT: Findings: No narrowing of the disk spaces is seen. The vertebra are in good alignment . No fractures or dislocations are seen. IMPRESSION IMPRESSION: Negative exam . Rocket Assembly Operator: JOSELUIS Transcribe Date/Time: Jan 16 2025 6:21P Dictated by : KOKI FOY MD This examination was interpreted and the report reviewed and electronically signed by: KOKI FYO MD on Jan 16 2025 6:22PM EST [facility] XR Lumbar spine 3 ViewsOrder ed By: [facility] Provider on 01-16-2025 [facility] XR SI JTS 2V AP PELV/FERGUSO Non 01-16-2025 XR SI JTS 2V AP PELV/WILSON * * *Final Report* * * DATE OF EXAM: Jan 16 2025 5:48PM WOX 5245 - XR SI JTS 2V AP PELV/WILSON / PROCEDURE REASON: Pain in joint, multiple sites * * * * Physician Interpretation * * * * EXAM(s): XR SI JTS 2V AP PELV/WILSON..... HISTORY: 34 years old Clinical information: Pain in joint, multiple sites pt has been experiencing pain in multiple joints for 6 months after a diagnosis of crohn's and celiac disease. TECHNIQUE: Images: XR SI JTS 2V AP PELV/WILSON Comparison: None. RESULT: Findings: The bony pelvis, sacroiliac joints, and pelvic soft tissues appear unremarkable. The hip joints are normally maintained.. IMPRESSION: No acute abnormality Rocket Assembly Operator: JOSELUIS Transcribe Date/Time: Jan 16 2025 6:17P Dictated by : KOKI FOY MD This examination was interpreted and the report reviewed and electronically signed by: KOKI FOY MD on Jan 16 2025 6:19PM EST [id number] Normal [facility] XR Sacroiliac Joint Viewson 01-16-2025 IMPRESSION: No acute abnormality Rocket Assembly Operator: PSCB Transcribe Date/Time: Jan 16 2025 6:17P Dictated by : KOKI FOY MD This examination was interpreted and the report reviewed and electronically signed by: KOKI FOY MD on Jan 16 2025 6:19PM EST DIVISION OF RADIOLOGY * * *Final Report* * * DATE OF EXAM: Jan 16 2025 5:48PM WOX 5245 - XR SI JTS 2V AP PELV/WILSON / PROCEDURE REASON: Pain in joint, multiple sites * * * * Physician Interpretation * * * * EXAM(s): XR SI JTS 2V AP PELV/WILSON..... HISTORY: 34 years old Clinical information: Pain in joint, multiple sites pt has been experiencing pain in multiple joints for 6 months after a diagnosis of crohn's and celiac disease. TECHNIQUE: Images: XR SI JTS 2V AP PELV/WILSON Comparison: None. RESULT: Findings: The bony pelvis, sacroiliac joints, and pelvic soft tissues appear unremarkable. The hip joints are normally maintained.. DIVISION OF RADIOLOGY Provider, [facility] - 01/16/2025 * * *Final Report* * * DATE OF EXAM: Jan 16 2025 5:48PM WOX 5245 - XR SI JTS 2V AP PELV/WILSON / PROCEDURE REASON: Pain in joint, multiple sites * * * * Physician Interpretation * * * * EXAM(s): XR SI JTS 2V AP PELV/WILSON..... HISTORY: 34 years old Clinical information: Pain in joint, multiple sites pt has been experiencing pain in multiple joints for 6 months after a diagnosis of crohn's and celiac disease. TECHNIQUE: Images: XR SI JTS 2V AP PELV/WILSON Comparison: None. RESULT: Findings: The bony pelvis, sacroiliac joints, and pelvic soft tissues appear unremarkable. The hip joints are normally maintained.. IMPRESSION IMPRESSION: No acute abnormality Rocket Assembly Operator: JOSELUIS Transcribe Date/Time: Jan 16 2025 6:17P Dictated by : KOKI FOY MD This examination was interpreted and the report reviewed and electronically signed by: KOKI FOY MD on Jan 16 2025 6:19PM EST [facility] cCP IgG SerPl-aCncon 025 Cyclic citrullinated peptide IgG Qn <15 Normal <20 [facility] Comment on above: Order Comment: Speci men Type: BLOOD SPECIMEN Ordering Facility: [facility] Address: [address] [place] [address] Performed By: #### 3 [id number] #### [facility] CLIA [id number] [address] [place] [address] [place] L506.1001on 01-03-2025 Vitamin D 25-OH 28.8 ng/mL Low 30-100 [facility] Comment on above: Result Comment: Rowan min D Status Deficiency: <20 ng/mL (50nmol/L) Insufficiency: 20-30 ng/mL (50-75 nmol/L) Sufficiency: 30-100 ng/mL (75-250 nmol/L) Toxicity: >100 ng/mL (>250 nmol/L) Performed By: #### L 501.6710, L3410.9998, L500.4050, L100.0100, L101.9900, L504.2610 #### [facility] [address] [place], [address] [employer] Office Visit Reporton 01-03-2025 [facility] [employer] Office Visit Report [facility] [address], [address] [place] [address] OFFICE VISIT Date of Service: 01/03/25 MR#: [id number] Acct: [id number] Name: PROSPER HARRY Rep #: [id number] : 1990 Provider: WAYNE garrett Age/Sex: 34/F [place] [facility] [place]: Signed Intake Vital Signs 11/15/24 12:59 01/03/25 14:12 01/03/25 14:16 Height 5 ft 6 in 5 ft 6 in 5 ft 6 in Weight: 177 lb 4 oz BMI 28.5 BP 124/82 H Intake Visit Reasons: discuss bloodwork Chief Complaint: discuss bloodwork Offal Icer Poultry Required: No Is patient in pain?: No Allergies Gadolinium-MRI Contrast Medium Allergy (Intermediate, Verified 01/03/25 14:12) Hives morphine Allergy (Verified 01/03/25 14:12) Hives Medications ???Medication ???Instructions ???Recorded ???Confirmed ???Type cholecalciferol (vitamin D3) 25 25 mcg PO DAILY 10/31/21 01/03/25 History mcg (1,000 unit) capsule ustekinumab 90 mg/mL subcutaneous 90 mg subcut Q8W #1 mL 10/02/24 0 01/03/25 Rx syringe (Stelara) omeprazole 40 mg capsule,delayed 40 mg PO QDAY 11/10/24 01/03/25 Hi story release vitamin E 268 mg (400 unit) capsule 268 mg PO QDAY 11/10/24 5 History ascorbic acid 1,000 1 ea PO DAILY PRN 11/15/24 5 History gu-qsymnpafxxrk-lkytvwjz powder effervescent pack (Emergen-C Immune Plus) Is last menstrual period known: Yes Last Menstrual Period: 12/19/24 Post menopausal: No Patient : No : No PFSH Medical History Abnormal EKG Fatigue SOB (shortness of breath) Crohn's disease Celiac disease Weight gain, abnormal Biliary colic Anemia Anxiety, generalized IgA deficiency Non-celiac gluten sensitivity Malabsorption syndrome Metabolic syndrome Irritable bowel syndrome with diarrhea Abdominal pain GERD (gastroesophageal reflux disease) Gestational diabetes mellitus (GDM) Biliary dyskinesia Epigastric pain Acute hepatitis Pancytopenia Ovarian cyst Surgical History Hx of anterior cruciate ligament tear reconstruction H/O hemicolectomy History of cholecystectomy ( 04/2020) S/P appendectomy S/P ACL surgery S/P tonsillectomy Family History Grandmother Diabetes Father Hypertension Grandfather Cancer Sister Crohn's disease Social History Smoking Status: Never smoker alcohol intake: current details: occasionally substance use type: does not use caffeine: Yes Type: coffee what type of physical activity do you participate in: aerobics frequency: 5-6 times per week seatbelt use: always do you feel safe at home: Yes additional social history: -Martin HPI discuss bloodwork Details: PROSPER HARRY is a 34 year old who presents for significant fatigue. Saw Dr Friend, now on stelara but he does not feel it is related to the medication although she states her symptoms started after receiving first injection. He did do multiple labs which are normal. She is having monthly cyclic menses. She is tearful feel worse instead of better with new medication. Female Reproductive History Last Menstrual Period: 12/19/24 History 3 Elective abortions Hx Para 3 Spontaneous abortions Hx # Term Pregnancies Ectopic pregnancies Hx # Pregnancies Multiple births # of living children Past Pregnancies Del. Date Name GA/Weeks Outcome Route Bth Weight Gen [facility] CONTRERAS 06/07/16 Radha 02/19/18 Ana 05/10/19 Jarred ORTEGA Const Constitutional: Reports as per HPI, fatigue and weight gain Eyes Eyes: Reports system reviewed and no additional complaints, except as documented GI GI: Denies abdominal pain or change in bowel habits : Reports as per HPI Exam Const General: cooperative and no acute distress Orientation: oriented x3 HENMT Head: normal to inspection and normocephalic Eyes General: appearance normal, both eyes and all related structures Neck Neck: normal visual inspection Resp Effort Inspection: normal respiratory effort Neuro Cognition: normal cognition Speech: speech normal Psych Appearance: grossly normal Mood: congruent mood Affect: normal affect Speech and Movement: speech and movement normal Attitude: cooperative Judgment: judgment good Coding Level of Care Code Off vis,est,level 3 Diagnoses Fatigue, unspecified type R53.83 Fatigue type: unspecified Assessment and Plan Assessment and Plan (1) Fatigue: Status: Acute Qualifiers: Fatigue type: unspecified Qualified Code(s): R53.83 - Other fatigue Orde (more content not included)... Normal [facility] Vitamin D, 25-hydroxyOrdered By: Uma Alejandro on 01-03-2025 Vitamin D 25-Hydroxy 28.8 ng/mL Low 30-[address] [facility] Comment on above: Vitamin D StatusDefi ciency: <20 ng/mL (50nmol/L)Insufficiency: 20-30 ng/mL (50-75 nmol/L)Sufficiency: 30-100 ng/mL (75-250 nmol/L)Toxicity: >100 ng/mL (>250 nmol/L) L3410.9998on 01-02-2025 [facility] Misc. COMMENT Normal . [facility] Comment on above: Order Comment: [id number] 4STELERA LEVELS RED FZ Result Comment: Test Ordered: [id number] Ustekinumab Drug + Antibody Ustekinumab 20 ug/mL ES Reference Range: . Quantitation Limit: <0.1 ug/mL Results of 0.1 ug/mL or higher indicate detection of ustekinumab. COMMENTS: - Induction levels in Crohn's Disease: - Patients who received IV 130 mg or 6 mg/kg had median trough concentrations of 2.1 ug/mL and 6.4 ug/mL, respectively, at week 8 in UNITI trials.(1) - Maintenance levels: - Of UNITI patients with trough levels greater than 1.1 ug/mL, about 80% achieved clinical remission (HBI < 5) and about 50% attained CRP normalization.(2) - Higher maintenance concentrations, greater than 4.5 ug/mL (achieved with q8wk or q4wk dosing after SQ induction), may be necessary for endoscopic response (SES-CD score reduction >=50%).(3) - Trough levels predictive of mucosal healing and fistula healing have yet to be determined. - In plaque psoriasis, median trough ustekinumab concentrations were 0.4 ug/mL at weeks 14 and 28 (ranging from undetectable to 3.6 ug/mL).(4) Although PASI50 responders had higher trough concentrations than non- responders in a study of 76 patients, a definitive therapeutic target range for psoriasis has yet to be established.(5) - As with other biologics, the optimal drug concentration depends upon patient-specific factors including co- morbidities, disease and desired therapeutic endpoint - This ustekinumab drug assay measures the free fraction of ustekinumab (antibody-unbound ustekinumab) when serum anti-ustekinumab antibodies are present. Anti-Ustekinumab Antibody <40 ng/mL ES Reference Range: . Quantitation Limit: < 40 ng/mL Results of 40 ng/mL or higher indicate detection of anti- ustekinumab antibodies. COMMENTS: - This anti-ustekinumab antibody assay is drug-tolerant, i.e. the detection of anti-ustekinumab antibodies is not impeded by the presence of ustekinumab in serum. - All positive anti-ustekinumab antibody results are verified by a confirmatory test. - The concomitant free ustekinumab drug concentration (reported above) is the pharmacodynamically active drug when anti-ustekinumab antibodies are present. - Serial measurements over time may be helpful to assess the impact of immunogenicity on the free drug level. - In the IM-UNITI trial, the incidence of anti-ustekinumab antibodies in Crohn's Disease at 1 year was 2.3%.(1) - In psoriasis, anti-ustekinumab antibodies occurred in 4-6% of patients.(6) References: 1. Sarah LOU, et al. Gastroenterology 2016;150(4):S408. 2. Sarah Calvo et al. P007 Exposure-Response to SC Ustekinumab in Moderate - Severe Crohn's Disease: Results from the IM-UNITI Maintenance Study. Advances in AIBD. July 2017. 3. Valentin R, et al. Clin Gastroenterol Hepatol 2017;15: 1384-8574. 4. Malissa HERNANDEZ et al. Br J Dermatol;2015:173;855-857. 5. Gela H, et al. PLOS ONE DOI;10:1371/journal.pone.8166625. 6. Salina L, et al. Br J Dermatol 2014;170:261-273. These tests were developed and their performance characteristics determined by [facility]. They have not been cleared or approved by the Food and Drug Administration. However, both drug and anti-drug antibody assays have been developed and validated in accordance with FDA Guidance for Industry documents: Bioanalytical Method Validation (2013) and Assay Development and Validation for Immunogenicity Testing of Therapeutic Protein Products (2016). Performed at: [facility] [address] [place] [id number] Form Maker Plaster: Akbar Covarrubias MD, Phone: [phone] Performed at: [address] [id number] Form Maker Plaster: Cem Howell PhD, Phone: [phone] Performed By: #### L 501.6710, L3410.9998, L500.4050, L100.0100, L101.9900, L504.2610 #### [facility] [address] [place], [address] Aldolaseon 12-28-2024 ALDOLASE 4.7 U/L Normal 3.3-10.3 [facility] Comment on above: Performed By: #### L 501.6710, L3410.9998, L500.4050, L100.0100, L101.9900, L504.2610 #### [facility] [address] [facility], [place], [address] [phone] Catecholamines, Plasmaon DOPAMINE 38 pg/mL Normal 0-48 [facility] Comment on above: Result Comment: Ef fective January 22, 2025 Dopamine methodology will be changing to Liquid Chromatography Tandem Mass Spectrometry (LC-MS/MS). The reference interval will be changing to: 0.0 - 36.7 pg/mL Performed By: #### L 501.6710, L3410.9998, L500.4050, L100.0100, L101.9900, L504.2610 #### [facility] [address] [place], [place], [address] [phone] EPINEPHRINE <15 Normal 0-62 [facility] Comment on above: Result Comment: Ef fective January 22, 2025 Epinephrine methodology will be changing to Liquid Chromatography Tandem Mass Spectrometry (LC-MS/MS). The reference interval will be changing to: 0.0 - 55.4 pg/mL Performed By: #### L 501.6710, L3410.9998, L500.4050, L100.0100, L101.9900, L504.2610 #### [facility] [address] [place], [place], [address] [phone] NOREPINEPHRINE 353 pg/mL Normal 0-874 [facility] Comment on above: Result Comment: Ef fective January 22, 2025 Norepinephrine methodology will be changing to Liquid Chromatography Tandem Mass Spectrometry (LC-MS/MS). The reference interval will be changing to: 115 - 524 pg/mL Performed By: #### L 501.6710, L3410.9998, L500.4050, L100.0100, L101.9900, L504.2610 #### [facility] [address] [place], [place], [address] [phone] Estrogen, Total, Serumon ESTROGENS,TOTAL 175 pg/mL Normal . [facility] Comment on above: Order Comment: N Result Comment: Prep ubertal < 40 Female Cycle: 1-10 Days 16 - 328 11-20 Days 34 - 501 21-30 Days 48 - 350 Post-Menopausal 40 - 244 Performed at: - [facility] [id number] Form Maker Plaster: Derrick Solis MD, Phone: [phone] Performed at: [facility] [id number] Form Maker Plaster: Cem Howell PhD, Phone: [phone] Performed By: #### L 501.6710, L3410.9998, L500.4050, L100.0100, L101.9900, L504.2610 #### [facility] [address] [place], [address] Insulin Levelon 12-28-2024 INSULIN,FASTING 20.7 uIU/mL Normal 2.6-24.9 [facility] Comment on above: Performed By: #### L 501.6710, L3410.9998, L500.4050, L100.0100, L101.9900, L504.2610 #### [facility] [address] [place], [address] Testosterone, Total / Freeon 12-28-2024 TESTOSTER,FREE 1.03 ng/dL Abnormal 0.10-0.85 [facility] Comment on above: Order Comment: N Performed By: #### L 501.6710, L3410.9998, L500.4050, L100.0100, L101.9900, L504.2610 #### [facility] [address] [place], [address] TESTOSTER,TOTAL 41 ng/dL Normal 8-60 [facility] Comment on above: Order Comment: N Performed By: #### L 501.6710, L3410.9998, L500.4050, L100.0100, L101.9900, L504.2610 #### [facility] [address] [place], [address] TESTOSTERONE,%F 2.50 Normal 0.50-2.80 [facility] Comment on above: Order Comment: N Performed By: #### L 501.6710, L3410.9998, L500.4050, L100.0100, L101.9900, L504.2610 #### [facility] [address] [place], [address] L3410.9998on 12-21-2024 [facility] Misc. COMMENT Normal . [facility] Comment on above: Order Comment: [id number] STERLARA LEVELS RED FRZ Result Comment: Test Ordered: [id number] Ustekinumab Drug + Antibody Ustekinumab 22 ug/mL ES Reference Range: . Quantitation Limit: <0.1 ug/mL Results of 0.1 ug/mL or higher indicate detection of ustekinumab. COMMENTS: - Induction levels in Crohn's Disease: - Patients who received IV 130 mg or 6 mg/kg had median trough concentrations of 2.1 ug/mL and 6.4 ug/mL, respectively, at week 8 in UNITI trials.(1) - Maintenance levels: - Of UNITI patients with trough levels greater than 1.1 ug/mL, about 80% achieved clinical remission (HBI < 5) and about 50% attained CRP normalization.(2) - Higher maintenance concentrations, greater than 4.5 ug/mL (achieved with q8wk or q4wk dosing after SQ induction), may be necessary for endoscopic response (SES-CD score reduction >=50%).(3) - Trough levels predictive of mucosal healing and fistula healing have yet to be determined. - In plaque psoriasis, median trough ustekinumab concentrations were 0.4 ug/mL at weeks 14 and 28 (ranging from undetectable to 3.6 ug/mL).(4) Although PASI50 responders had higher trough concentrations than non- responders in a study of 76 patients, a definitive therapeutic target range for psoriasis has yet to be established.(5) - As with other biologics, the optimal drug concentration depends upon patient-specific factors including co- morbidities, disease and desired therapeutic endpoint - This ustekinumab drug assay measures the free fraction of ustekinumab (antibody-unbound ustekinumab) when serum anti-ustekinumab antibodies are present. Anti-Ustekinumab Antibody <40 ng/mL ES Reference Range: . Quantitation Limit: < 40 ng/mL Results of 40 ng/mL or higher indicate detection of anti- ustekinumab antibodies. COMMENTS: - This anti-ustekinumab antibody assay is drug-tolerant, i.e. the detection of anti-ustekinumab antibodies is not impeded by the presence of ustekinumab in serum. - All positive anti-ustekinumab antibody results are verified by a confirmatory test. - The concomitant free ustekinumab drug concentration (reported above) is the pharmacodynamically active drug when anti-ustekinumab antibodies are present. - Serial measurements over time may be helpful to assess the impact of immunogenicity on the free drug level. - In the IM-UNITI trial, the incidence of anti-ustekinumab antibodies in Crohn's Disease at 1 year was 2.3%.(1) - In psoriasis, anti-ustekinumab antibodies occurred in 4-6% of patients.(6) References: 1. Sarah LOU, et al. Gastroenterology 2016;150(4):S408. 2. Sarah Calvo et al. P007 Exposure-Response to SC Ustekinumab in Moderate - Severe Crohn's Disease: Results from the IM-UNITI Maintenance Study. Advances in AIBD. July 2017. 3. Valentin R, et al. Clin Gastroenterol Hepatol 2017;15: 3503-3603. 4. Malissa SP, et al. Br J Dermatol;2015:173;855-857. 5. Gela H, et al. PLOS ONE DOI;10:1371/journal.pone.9997706. 6. Salina L, et al. Br J Dermatol 2014;170:261-273. These tests were developed and their performance characteristics determined by [facility]. They have not been cleared or approved by the Food and Drug Administration. However, both drug and anti-drug antibody assays have been developed and validated in accordance with FDA Guidance for Industry documents: Bioanalytical Method Validation (2013) and Assay Development and Validation for Immunogenicity Testing of Therapeutic Protein Products (2016). Performed at: [facility] [address] [place] [id number] Form Maker Plaster: Akbar Covarrubias MD, Phone: [phone] Performed at: [address] [id number] Form Maker Plaster: Cem Howell PhD, Phone: [phone] Performed By: #### L 501.6710, L3410.9998, L500.4050, L100.0100, L101.9900, L504.2610 #### [facility] [facility] [address] [facility] [place], [address] Aldolase [Catalytic activity /Vol]Ordered By: Samuel Nunez on 12-15-2024 Aldolase 4.7 U/L 3.3-10.3 [facility] Aldolase ser/plasOrdered By: Samuel Nunez on 12-15-2024 Aldolase [Catalytic activity/Vol] 4.7 mU/mL 3.3-10.3 [facility] CPK Total, Creatine Kinaseon 12-15-2024 CPK TOTAL 111 U/L Normal 24-195 [facility] Comment on above: Performed By: #### L 501.6710, L3410.9998, L500.4050, L100.0100, L101.9900, L504.2610 #### [facility] [address] [place], [address] (199) CRPon 12-15-2024 C-REACTIVE PROT < 3.00 Normal 0.0-3.0 [facility] Comment on above: Performed By: #### L 501.6710, L3410.9998, L500.4050, L100.0100, L101.9900, L504.2610 #### [facility] [address] [facility] [place], [address] CRP [Mass/Vol]Ordered By: Ra good Nunez on 12-15-2024 C-Reactive Protein Extended Range < 3.00 mg/L 0.0-3.0 [facility] Calculated very low density lipoprotein (VLDL) cholesterol measurementOrdered By: Samuel Nunez on 12-15-2024 Calculated very low density lipoprotein (VLDL) cholesterol measurement 31 mg/dL 5-40 [facility] VLDL Cholesterol 31 mg/dL 5-40 [facility] DOPamine [Mass/Vol]Ordered B y: Samuel Nunez on 12-15-2024 Dopamine Level 38 pg/mL 0-48 [facility] Comment on above: Effective January Dopamine methodology will bechanging to Liquid Chromatography Tandem MassSpectrometry (LC-MS/MS). The reference interval will bechanging to: 0.0 - 36.7 pg/mL EPINEPHrine (P) [Mass/Vol]Or dered By: Samuel Nunez on 12-15-2024 Epinephrine Level <15 pg/mL 0-62 [facility] Comment on above: Effective January Epinephrine methodology will bechanging to Liquid Chromatography Tandem MassSpectrometry (LC-MS/MS). The reference interval will bechanging to: 0.0 - 55.4 pg/mL Erythrocyte Sed Rateon 12-15 SED RATE 2 mm/hr Normal 0-30 [facility] Comment on above: Performed By: #### L 501.6710, L3410.9998, L500.4050, L100.0100, L101.9900, L504.2610 #### [facility] [place], [address] Erythrocyte sedimentation ra teOrdered By: Samuel Nunez on 12-15-2024 ESR (Bld) [Velocity] 2 mm/h 0-[address] [facility] Estrogen [Mass/Vol]Ordered B y: Samuel Nunez on 12-15-2024 Total Estrogens 175 pg/mL . [facility] Comment on above: Prepubertal < 40 Fem bea Cycle: 1-10 Days 16 - 328 11-20 Days 34 - 501 21-30 Days 48 - 350 Post-Menopausal 40 - 244Performed at: [facility] [address] [id number] Director: Derrick Solis MD, Phone: [phone] at: [facility] [id number] [place], [place] [id number] Director: Cem Howell PhD, Phone: [phone] FSH and LHon 12-15-2024 FSH 3.6 mIU/mL Normal [facility] Comment on above: Result Comment: FEMA LE: Follicular: 1.4 - 18.1 mIU/mL Midcycle: 3.4 - 33.4 mIU/mL Luteal: 1.5 - 9.1 mIU/mL Post Menopause: 23.0 - 116.3 mIU/mL MALE: 1.4 - 18.1 mIU/mL NORMAL REFERENCE RANGES FEMALE FOLLICULAR 2.3 - 12.6 mIU/mL MID-CYCLE PEAK 5.2 - 17.5 mIU/mL LUTEAL 1.7 - 12.9 mIU/mL POST-MENOPAUSAL ON MHT 5.9 - 72.8 mIU/mL NOT ON MHT 12.7 - 132.2 mlU/mL MALE 0.7 - 10.8 mIU/mL Performed By: #### L 501.6710, L3410.9998, L500.4050, L100.0100, L101.9900, L504.2610 #### [facility] [address] [place], [place], [id number] LH 5.4 mIU/mL Normal [facility] Comment on above: Result Comment: FEMA LE: Follicular: 1.9-12.5 mIU/mL Midcycle: 8.7-76.3 mIU/mL Luteal: 0.5-16.9 mIU/mL Post Menopause: 15.9-54.0 mIU/mL MALE: 20-70 Years: 1.5-9.3 mIU/mL >70 Years: 3.1-34.6 mIU/mL Performed By: #### L 501.6710, L3410.9998, L500.4050, L100.0100, L101.9900, L504.2610 #### [facility] [address] [place], [place], [id number] Follicle stimulating hormone (FSH) levelOrdered By: Samuel Nunez on 12-15-2024 Follicle Stimulating Hormone 3.6 mIU/mL [facility] Comment on above: FEMALE:Follicular: 1 .4 - 18.1 mIU/mLMidcycle: 3.4 - 33.4 mIU/mLLuteal: 1.5 - 9.1 mIU/mLPost Menopause: 23.0 - 116.3 mIU/mLMALE: 1.4 - 18.1 mIU/mL NORMAL REFERENCE RANGES FEMALE FOLLICULAR 2.3 - 12.6 mIU/mL MID-CYCLE PEAK 5.2 - 17.5 mIU/mL LUTEAL 1.7 - 12.9 mIU/mL POST-MENOPAUSAL ON MHT 5.9 - 72.8 mIU/mL NOT ON MHT 12.7 - 132.2 mlU/mL MALE 0.7 - 10.8 mIU/mL Free T3on 12-15-2024 Free T3 [Mass/Vol] 3.2 pg/mL Normal 2.18-3.98 [facility] Comment on above: Order Comment: N Performed By: #### L 501.6710, L3410.9998, L500.4050, L100.0100, L101.9900, L504.2610 #### [facility] [address] [place], [place], [id number] Free [id number] By: Samuel dudley on 12-15-2024 Free T3 [Mass/Vol] 3.2 pg/mL 2.18-3.98 [facility] Free Triiodothyronine (T3) pg/dL 3.2 pg/mL 2.18-3.98 [facility] Free testosterone percentage Ordered By: Samuel Nunez on 12-15-2024 Testosterone Free/Testosterone.total [Mass fraction] 2.50 % 0.50-2.80 [facility] Hemoglobin A1c percentageOrd ered By: Samuel Nunez on 12-15-2024 HbA1c (Bld) [Mass fraction] 5.4 % Low <=5.6 [facility] Comment on above: Performed By: #### L 501.6710, L3410.9998, L500.4050, L100.0100, L101.9900, L504.2610 #### [facility] [address] [place], [address] Insulin [Mass/Vol]Ordered By : Samuel Friend on 12-15-2024 Insulin Level 20.7 uIU/mL 2.6-24.9 [facility] L509.6002on 12-15-2024 CORTISOL 5.31 ug/dL Normal 2.68-10.50 [facility] Comment on above: Performed By: #### L 501.6710, L3410.9998, L500.4050, L100.0100, L101.9900, L504.2610 #### [facility] [address] [place], [address] CORTISOL 12.70 ug/dL High 2.68-10.50 [facility] Comment on above: Performed By: #### L 501.6710, L3410.9998, L500.4050, L100.0100, L101.9900, L504.2610 #### [facility] [address] [place], [address] LDHon 12-15-2024 LDH 162 U/L Normal 84-246 [facility] Comment on above: Order Comment: 1 Performed By: #### L 501.6710, L3410.9998, L500.4050, L100.0100, L101.9900, L504.2610 #### [facility] [address] [place], [address] LDL calc ser/plasOrdered By: Samuel Friend on 12-15-2024 Cholesterol in LDL [Mass/Vol] 97 mg/dL [facility] Comment on above: Bsmvmmched=370-647 m g/dL & Higher Tblf=370 mg/dL or greater LDL Cholesterol, Calculated 97 mg/dL [facility] Comment on above: Befejxoyoz=922-391 m g/dL & Higher Rqkh=228 mg/dL or greater LH ser/plasOrdered By: Cole driver Friend on 12-15-2024 Luteinizing Hormone 5.4 mIU/mL [facility] Comment on above: FEMALE:Follicular: 1 .9-12.5 mIU/mLMidcycle: 8.7-76.3 mIU/mLLuteal: 0.5-16.9 mIU/mLPost Menopause: 15.9-54.0 mIU/mLMALE:20-70 Years: 1.5-9.3 mIU/mL>70 Years: 3.1-34.6 mIU/mL Lactate dehydrogenase (LDH) measurementOrdered By: Samuel Nunez on 12-15-2024 LDH [Catalytic activity/Vol] 162 U/L 84-246 [facility] Lipid Profileon 12-15-2024 CHOL:HDL 3.50 Normal [facility] Comment on above: Performed By: #### L 501.6710, L3410.9998, L500.4050, L100.0100, L101.9900, L504.2610 #### [facility] [address] [place], [address] Cholesterol [Mass/Vol] 180 mg/dL Normal <=200 [facility] Comment on above: Result Comment: Chol esterol level, Desirable <200 mg/dL Borderline high cholesterol 200-239 mg/dL High cholesterol >=240 mg/dL Recommendations of the NCEP Adult Treatment Panel for the following risk-cutoff thresholds for the [place] population. Performed By: #### L 501.6710, L3410.9998, L500.4050, L100.0100, L101.9900, L504.2610 #### [facility] [address] [facility] [place], [address] Cholesterol in HDL [Mass/Vol] 52 mg/dL Normal [facility] Comment on above: Result Comment: Malou onal Cholesterol Education Program (NCEP) guidelines: <40 mg/dL: Low HDL-cholesterol (major risk factor for CHD) >= 60 mg/dL: High HDL-cholesterol (negative risk factor for CHD) HDL-cholesterol is affected by a number of factors, e.g. smoking, exercise, hormones, sex and age. Performed By: #### L 501.6710, L3410.9998, L500.4050, L100.0100, L101.9900, L504.2610 #### [facility] [address] [place], [place], [id number] ([address]) Cholesterol in LDL [Mass/Vol] 97 mg/dL Normal [facility] Comment on above: Result Comment: Bord ycvgph=900-564 mg/dL Higher Nlgx=570 mg/dL or greater Performed By: #### L 501.6710, L3410.9998, L500.4050, L100.0100, L101.9900, L504.2610 #### [facility] [address] [place], [place], [address] Cholesterol in VLDL [Mass/Vol] 31 mg/dL Normal 5-40 [facility] Comment on above: Performed By: #### L 501.6710, L3410.9998, L500.4050, L100.0100, L101.9900, L504.2610 #### [facility] [address] [place], [address] Triglyceride [Mass/Vol] 156 mg/dL Normal [facility] Comment on above: Result Comment: The drugs N-Acetylcysteine and Metamizole may falsely depress this assay. Normal range: <150 mg/dL Borderline High: 150-199 mg/dL High: 200-499 mg/dL Very High: >500 mg/dL Performed By: #### L 501.6710, L3410.9998, L500.4050, L100.0100, L101.9900, L504.2610 #### [facility] [address] [place], [place], [id number] No Panel InformationOrdered By: Samuel Nunez on 12-15-2024 Cortisol PM Sample 5.31 ug/dL 2.68-10.50 [facility] Norepinephrine (P) [Mass/Vol ]Ordered By: Samuel Nunez on 12-15-2024 Norepinephrine Level 353 pg/mL 0-[address] [facility] Comment on above: Effective January Norepinephrine methodology willbe changing to Liquid Chromatography Tandem MassSpectrometry (LC-MS/MS). The reference interval will bechanging to: 115 - 524 pg/mL Plasma epinephrine measureme nt (mass/volume)Ordered By: Samuel Nunez on 12-15-2024 EPINEPHrine (P) [Mass/Vol] <15 pg/mL 0-62 [facility] Comment on above: Effective January Epinephrine methodology will bechanging to Liquid Chromatography Tandem MassSpectrometry (LC-MS/MS). The reference interval will bechanging to: 0.0 - 55.4 pg/mL Plasma norepinephrine measur ement (mass/volume)Ordered By: Samuel Nunez on 12-15-2024 Norepinephrine (P) [Mass/Vol] 353 pg/mL 0-874 [facility] Comment on above: Effective January Norepinephrine methodology willbe changing to Liquid Chromatography Tandem MassSpectrometry (LC-MS/MS). The reference interval will bechanging to: 115 - 524 pg/mL Screening total cholesterol/ high density lipoprotein (HDL) cholesterol ratioOrdered By: Samuel Nunez on 12-15-2024 Cholesterol.total/Myra sterol in HDL [Mass ratio] 3.50 {ratio} [facility] Serum or plasma C reactive p rotein measurement (mass/volume)Ordered By: Samuel Nunez on 12-15-2024 CRP [Mass/Vol] mg/L 0.0-3.0 [facility] Serum or plasma cholesterol in HDL measurement (mass/volume)Ordered By: Samuel Nunez on 12-15-2024 Cholesterol in HDL [Mass/Vol] 52 mg/dL >40 [facility] Comment on above: National Cholesterol Education Program (NCEP) guidelines:<40 mg/dL: Low HDL-cholesterol (major risk factor for CHD)>= 60 mg/dL: High HDL-cholesterol (negative risk factor for CHD)HDL-cholesterol is affected by a number of factors, e.g. smoking, exercise, hormones, sex and age. Serum or plasma cholesterol measurement (mass/volume)Ordered By: aSmuel Nunez on 12-15-2024 Cholesterol [Mass/Vol] 180 mg/dL <201 [facility] Comment on above: Cholesterol level, D esirable <200 mg/dLBorderline high cholesterol 200-239 mg/dLHigh cholesterol >=240 mg/dLRecommendations of the NCEP Adult Treatment Panel for the following risk-cutoff thresholds for the [place] population. Serum or plasma creatine kin ase activityOrdered By: Samuel Nunez on 12-15-2024 CK [Catalytic activity/Vol] 111 U/L 24-195 [facility] Serum or plasma dopamine suresh surement (mass/volume)Ordered By: Samuel Nunez on 12-15-2024 DOPamine [Mass/Vol] 38 pg/mL 0-48 [facility] Comment on above: Effective January Dopamine methodology will bechanging to Liquid Chromatography Tandem MassSpectrometry (LC-MS/MS). The reference interval will bechanging to: 0.0 - 36.7 pg/mL Serum or plasma estrogen suresh surement (mass/volume)Ordered By: Samuel Nunez on 12-15-2024 Estrogen [Mass/Vol] 175 pg/mL . [facility] Comment on above: Prepubertal < 40 Fem bea Cycle: 1-10 Days 16 - 328 11-20 Days 34 - 501 21-30 Days 48 - 350 Post-Menopausal 40 - 244Performed at: [facility] [id number] Director: Derrick Solis MD, Phone: [phone] at: [facility] [id number] Director: Cem Howell PhD, Phone: [phone] Serum or plasma free testost erone measurement (mass/volume)Ordered By: Samuel Nunez on 12-15-2024 Testosterone Free [Mass/Vol] 1.03 ng/dL High 0.10-0.85 [facility] Serum or plasma insulin nadine urement (mass/volume)Ordered By: Samuel Nunez on 12-15-2024 Insulin [Mass/Vol] 20.7 uIU/mL 2.6-24.9 [facility] T4 Free Directon 12-15-2024 T4 FREE DIRECT 1.10 ng/dL Normal 0.76-1.46 [facility] Comment on above: Order Comment: N Performed By: #### L 501.6710, L3410.9998, L500.4050, L100.0100, L101.9900, L504.2610 #### [facility] [address] [place], [place], [id number] T4 freeOrdered By: Samuel dudley on 12-15-2024 Free T4 [Mass/Vol] 1.10 ng/dL 0.76-1.46 [facility] TSH DL <= 0.005 mIU/L QnOrde red By: Samuel Nunez on 12-15-2024 Thyroid Stimulating Hormone (TSH) 1.110 uIU/mL 0.300-4.20 0 [facility] TSH Qn 1.110 uIU/mL 0.300-4.20 0 [facility] Testosterone Free [Mass/Vol] Ordered By: Samuel Nunez on 12-15-2024 Free Testosterone 1.03 ng/dL High 0.10-0.85 [facility] Testosterone Free/Testostero ne.total [Mass fraction]Ordered By: Samuel Nunez on 12-15-2024 Percent Free Testosterone 2.50 % 0.50-2.80 [facility] Testosterone, totalOrdered B y: Samuel Nunez on 12-15-2024 Testosterone [Mass/Vol] 41 ng/dL 8-60 [facility] Thyroid Stim Hormone (TSH)on 12-15-2024 TSH 1.110 uIU/mL Normal 0.300-4.20 0 [facility] Comment on above: Performed By: #### L 501.6710, L3410.9998, L500.4050, L100.0100, L101.9900, L504.2610 #### [facility] [address] [place], [place], [id number] Triglycerides measurementOrd ered By: Samuel Nunez on 12-15-2024 Triglyceride [Mass/Vol] 156 mg/dL <199 [facility] Comment on above: The drugs N-Acetylcy steine and Metamizole may falsely depress this assay. Normal range: <150 mg/dLBorderline High: 150-199 mg/dLHigh: 200-499 mg/dLVery High: >500 mg/dL Gastroenterology Visit Repor ton 12-14-2024 Gastroenterology Visit Report [facility] [address] [place] [address] OFFICE VISIT Date of Service: 12/14/24 MR#: [id number] Acct: [id number] Name: PROSPER HARRY Rep #: [id number] : 1990 Provider: Samuel Nunez DO Age/Sex: 33/F Location: [facility] Status: Signed Intake Vital Signs 09/11/24 05:49 11/15/24 12:59 Height 5 ft 6 in 5 ft 6 in Intake Visit Reasons: 3 M FU Allergies Gadolinium-MRI Contrast Medium Allergy (Intermediate, Verified 11/15/24 13:03) Hives morphine Allergy (Verified 11/15/24 13:03) Hives Medications ???Medication ???Instructions ???Recorded ???Confirmed ???Type cholecalciferol (vitamin D3) 25 25 mcg PO DAILY 10/31/21 12/14/24 History mcg (1,000 unit) capsule ustekinumab 90 mg/mL subcutaneous 90 mg subcut Q8W #1 mL 10/02/24 0 12/14/24 Rx syringe (Stelara) omeprazole 40 mg capsule,delayed 40 mg PO QDAY 11/10/24 12/14/24 Hi story release pyridoxine (vitamin B6) 50 mg 50 mg PO TID 11/10/24 12/14/24 His tory tablet vitamin E 268 mg (400 unit) capsule 268 mg PO QDAY 11/10/24 5 History ascorbic acid 1,000 1 ea PO DAILY PRN 11/15/24 5 History ic-qptaxjqetsqp-hgdnknnh powder effervescent pack (Emergen-C Immune Plus) [facility] Medical History Abnormal EKG Fatigue SOB (shortness of breath) Crohn's disease Celiac disease Weight gain, abnormal Biliary colic Anemia Anxiety, generalized IgA deficiency Non-celiac gluten sensitivity Malabsorption syndrome Metabolic syndrome Irritable bowel syndrome with diarrhea Abdominal pain GERD (gastroesophageal reflux disease) Gestational diabetes mellitus (GDM) Biliary dyskinesia Epigastric pain Acute hepatitis Pancytopenia Ovarian cyst Surgical History Hx of anterior cruciate ligament tear reconstruction H/O hemicolectomy History of cholecystectomy ( 04/2020) S/P appendectomy S/P ACL surgery S/P tonsillectomy Family History Grandmother Diabetes Father Hypertension Grandfather Cancer Sister Crohn's disease Social History Smoking Status: Never smoker alcohol intake: current details: occasionally substance use type: does not use caffeine: Yes Type: coffee what type of physical activity do you participate in: aerobics frequency: 5-6 times per week seatbelt use: always do you feel safe at home: Yes additional social history: -Martin HPI HPI Details: PROSPER HARRY, is a 33 F who presents to the office today for follow up. WSA established previously ? EGD 12.12.19 variable Zline 36cm; 1cm hiatal hernia; gastritis with friable mucosa. H.Pylori negative. ? Laparoscopic cholecystectomy 05.01.20 with lysis of adhesions. ? EGD and colonoscopy 06.12.22 EGD gastritis; esophagitis with EOE changes and >20 eosinophil presence. ? Colonoscopy internal hemorrhoids; end-to-end colo-colonic anastomosis. *BGI established 07.03.22 with previously diagnosed EOE managed with omeprazole 20mg QD and loose stools with FH Crohn???s disease. Start cholestyramine ? Biochemical CBC, ESR, CMP, LFT, CRP, LDH, ALOK comp, ANCA, GAME, INGRID, IBD without pertinent abnormality ? Stool calprotectin, elastase, c.difficile, EP, O/P, giardia WNL? Lactoferrin + ? US and elastography 08.25.22 hepatic measurement 16.1cm with fatty infiltration, stiffness 9.2kPa OV 09.01.22 with improvement of loose stools. Start ursodiol ? Biochemical triglycerides H211, LDL H42 ? Start Dupixent OV 03.01.23 for IBS, EOE, NAFLD follow up. Currently having difficulty with bloating, suspect SIBO, Start doxycycline. ? US and elastography 04.15.23 hepatic measurement 18.6cm with fatty infiltration, stiffness 4.4kPa Contact 04.21.23 with US/elastography update; continue current medications OV 08.30.23 feels she is doing well. Dupixent continues without difficulty. No swallowing issues. OV . OV 08.30.24 pt reports 1-2 loose bm daily for the past 1-2 months; endorses blood in stool, but states that she has a hx of hemorrhoids and is unsure is that's where the bleeding is coming from. Pt reports intermittent sharp abd pain, unable to pinpoint trigger. Pt notes gas and bloating even when she rosas (more content not included)... Normal [facility] Absolute lymphocyte countOrd ered By: Samuel Nunez on 12-13-2024 Lymphocytes Auto (Unsp spec) [#/Vol] 2.41 10*3/uL 0.83-4.51 [facility] Absolute neutrophil countOrd ered By: Samuel Nunez on 12-13-2024 Neutrophils (Bld) [#/Vol] 3.7 10*3/uL 2.0-7.7 [facility] Anion gap in Serum or Plasma Ordered By: Samuel Nunez on 12-13-2024 Anion gap [Moles/Vol] 12 mmol/L 5- [facility] Automated lymphocyte count a s percentage of total leukocytesOrdered By: Samuel Nnuez on 12-13-2024 Lymphocytes/100 WBC Auto (Unsp spec) 35.1 % - [facility] BUN/creatinine ratioOrdered By: Samuelestefani Nunez on 12-13-2024 Urea nitrogen/Creatinine [Mass ratio] 18.4 mg/mg 10-20 [facility] Basophil percentageOrdered B y: Samuel Nunez on 12-13-2024 Basophils/100 WBC (Bld) 0.7 % 0-1 [facility] Bilirubin, totalOrdered By: Samuel Nunez on 12-13-2024 Bilirubin [Mass/Vol] 0.33 mg/dL 0.00-1.[address] [facility] CBC W/Diff, Automatedon Absolute Lymph 2.41 X10 3/uL Normal 0.83-4.51 [facility] Comment on above: Performed By: #### L 501.6710, L3410.9998, L500.4050, L100.0100, L101.9900, L504.2610 #### [facility] [address] [place], [address] Absolute Neut 3.7 X10 3/uL Normal 2.0-7.7 [facility] Comment on above: Performed By: #### L 501.6710, L3410.9998, L500.4050, L100.0100, L101.9900, L504.2610 #### [facility] [address] [place], [address] Basophils/100 WBC (Bld) 0.7 % Normal 0-1 [facility] Comment on above: Performed By: #### L 501.6710, L3410.9998, L500.4050, L100.0100, L101.9900, L504.2610 #### [facility] [address] [place], [address] Eosinophils/100 WBC (Bld) 1.7 % Normal 0-5 [facility] Comment on above: Performed By: #### L 501.6710, L3410.9998, L500.4050, L100.0100, L101.9900, L504.2610 #### [facility] [address] [place], [address] Erythrocyte distribution width (RBC) [Ratio] 12.2 % Normal 11.6-14.6 [facility] Comment on above: Performed By: #### L 501.6710, L3410.9998, L500.4050, L100.0100, L101.9900, L504.2610 #### [facility] [address] [place], [address] Hematocrit (Bld) [Volume fraction] 37.4 % Normal 37-47 [facility] Comment on above: Performed By: #### L 501.6710, L3410.9998, L500.4050, L100.0100, L101.9900, L504.2610 #### [facility] [address] [place], [address] Hemoglobin (Bld) [Mass/Vol] 12.3 g/dL Normal 12.0-15.0 [facility] Comment on above: Performed By: #### L 501.6710, L3410.9998, L500.4050, L100.0100, L101.9900, L504.2610 #### [facility] [address] [place], [address] IG% 0.300 Normal 0.0-0.9 [facility] Comment on above: Result Comment: IG% - Immature Granulocytes (promyelocytes, myelocytes and metamyelocytes) > 1% indicates that a LEFT SHIFT is Present. Performed By: #### L 501.6710, L3410.9998, L500.4050, L100.0100, L101.9900, L504.2610 #### [facility] [address] [place], [address] Lymphocytes/100 WBC (Bld) 35.1 % Normal 19-41 [facility] Comment on above: Performed By: #### L 501.6710, L3410.9998, L500.4050, L100.0100, L101.9900, L504.2610 #### [facility] [address] [place], [address] MCH (RBC) [Entitic mass] 28.9 pg Normal 27.0-32.0 [facility] Comment on above: Performed By: #### L 501.6710, L3410.9998, L500.4050, L100.0100, L101.9900, L504.2610 #### [facility] [address] [place], [address] MCHC (RBC) [Mass/Vol] 32.9 g/dL Normal 32-36 [facility] Comment on above: Performed By: #### L 501.6710, L3410.9998, L500.4050, L100.0100, L101.9900, L504.2610 #### [facility] [address] [place], [address] MCV (RBC) [Entitic vol] 87.8 fL Normal 81-99 [facility] Comment on above: Performed By: #### L 501.6710, L3410.9998, L500.4050, L100.0100, L101.9900, L504.2610 #### [facility] [address] [place], [address] Monocytes/100 WBC (Bld) 8.2 % Normal 0-10 [facility] Comment on above: Performed By: #### L 501.6710, L3410.9998, L500.4050, L100.0100, L101.9900, L504.2610 #### [facility] [address] [place], [address] Neutrophils/100 WBC (Bld) 54.0 % Normal 47-70 [facility] Comment on above: Performed By: #### L 501.6710, L3410.9998, L500.4050, L100.0100, L101.9900, L504.2610 #### [facility] [address] [place], [address] Nucleated RBC (Bld) [#/Vol] 0 10*3/uL Normal 0-5 [facility] Comment on above: Performed By: #### L 501.6710, L3410.9998, L500.4050, L100.0100, L101.9900, L504.2610 #### [facility] [address] [place], [address] Platelet mean volume (Bld) [Entitic vol] 10.8 fL Normal 6.2-12.0 [facility] Comment on above: Performed By: #### L 501.6710, L3410.9998, L500.4050, L100.0100, L101.9900, L504.2610 #### [facility] [address] [place], [address] Platelets (Bld) [#/Vol] 290 10*3/uL Normal 150-450 [facility] Comment on above: Performed By: #### L 501.6710, L3410.9998, L500.4050, L100.0100, L101.9900, L504.2610 #### [facility] [address] [place], [address] RBC (Bld) [#/Vol] 4.26 10*6/uL Normal 4.2-5.4 [facility] Comment on above: Performed By: #### L 501.6710, L3410.9998, L500.4050, L100.0100, L101.9900, L504.2610 #### [facility] [address] [place], [address] RDW SD 39.5 fl Normal 35.1-43.9 [facility] Comment on above: Performed By: #### L 501.6710, L3410.9998, L500.4050, L100.0100, L101.9900, L504.2610 #### [facility] [address] [place], [address] WBC (Bld) [#/Vol] 6.9 10*3/uL Normal 4.4-11.0 [facility] Comment on above: Performed By: #### L 501.6710, L3410.9998, L500.4050, L100.0100, L101.9900, L504.2610 #### [facility] [address] [place], [address] CRPon 12-13-2024 C-REACTIVE PROT < 3.00 Normal 0.0-3.0 [facility] Comment on above: Performed By: #### L 501.6710, L3410.9998, L500.4050, L100.0100, L101.9900, L504.2610 #### [facility] [address] [place], [address] CRP [Mass/Vol]Ordered By: Ra good Nunez on 12-13-2024 C-Reactive Protein Extended Range < 3.00 mg/L 0.0-3.0 [facility] Carbon dioxide, total [Moles /volume] in Central venous bloodOrdered By: Samuel Nunez on 12-13-2024 CO2 [Moles/Vol] 22.0 mmol/L 21.0-32.0 [facility] Chloride assayOrdered By: Ra good Nunez on 12-13-2024 Chloride [Moles/Vol] 103 mmol/L 98-[address] [facility] Comprehensive Metabolic Prof ilon 12-13-2024 Albumin [Mass/Vol] 4.6 g/dL Normal 3.5-5.0 [facility] Comment on above: Order Comment: [id number] Performed By: #### L 501.6710, L3410.9998, L500.4050, L100.0100, L101.9900, L504.2610 #### [facility] [address] [place], [address] Albumin/Globulin [Mass ratio] 1.7 {ratio} Normal 0.9-2.4 [facility] Comment on above: Order Comment: [id number] Performed By: #### L 501.6710, L3410.9998, L500.4050, L100.0100, L101.9900, L504.2610 #### [facility] [address] [place], [address] ALK PHOS 48 U/L Normal 35-104 [facility] Comment on above: Order Comment: [id number] 4 Performed By: #### L 501.6710, L3410.9998, L500.4050, L100.0100, L101.9900, L504.2610 #### [facility] [address] [place], [address] ALT [Catalytic activity/Vol] 34 U/L Normal <=34 [facility] Comment on above: Order Comment: [id number] 4 Performed By: #### L 501.6710, L3410.9998, L500.4050, L100.0100, L101.9900, L504.2610 #### [facility] [address] [place], [address] AST [Catalytic activity/Vol] 21 U/L Normal <=31 [facility] Comment on above: Order Comment: [id number] 4 Performed By: #### L 501.6710, L3410.9998, L500.4050, L100.0100, L101.9900, L504.2610 #### [facility] [address] [place], [address] Bilirubin [Mass/Vol] 0.33 mg/dL Normal 0.00-1.[address] [facility] Comment on above: Order Comment: [id number] 4 Performed By: #### L 501.6710, L3410.9998, L500.4050, L100.0100, L101.9900, L504.2610 #### [facility] [address] [place], [address] BUN/CRE 18.4 RATIO Normal 10-20 [facility] Comment on above: Order Comment: [id number] 4 Performed By: #### L 501.6710, L3410.9998, L500.4050, L100.0100, L101.9900, L504.2610 #### [facility] [address] [place], [address] Calcium [Mass/Vol] 9.0 mg/dL Normal 7.6-11.0 [facility] Comment on above: Order Comment: [id number] 4 Performed By: #### L 501.6710, L3410.9998, L500.4050, L100.0100, L101.9900, L504.2610 #### [facility] [address] [place], [address] Chloride [Moles/Vol] 103 mmol/L Normal 98-[address] [facility] Comment on above: Order Comment: [id number] 4 Performed By: #### L 501.6710, L3410.9998, L500.4050, L100.0100, L101.9900, L504.2610 #### [facility] [address] [place], [address] CO2 [Moles/Vol] 22.0 mmol/L Normal 21.0-32.0 [facility] Comment on above: Order Comment: 75093 4 Performed By: #### L 501.6710, L3410.9998, L500.4050, L100.0100, L101.9900, L504.2610 #### [facility] [address] [place], [address] Creatinine [Mass/Vol] 0.68 mg/dL Low 0.70-1.20 [facility] Comment on above: Order Comment: [id number] 4 Performed By: #### L 501.6710, L3410.9998, L500.4050, L100.0100, L101.9900, L504.2610 #### [facility] [address] [place], [address] GAP 12 Normal 5-15 [facility] Comment on above: Order Comment: [id number] 4 Performed By: #### L 501.6710, L3410.9998, L500.4050, L100.0100, L101.9900, L504.2610 #### [facility] [address] [place], [address] GFR/1.73 sq M.predicted among non-blacks MDRD (S/P/Bld) [Vol rate/Area] 119 mL/min/{1.73_m2} Normal >60 [facility] Comment on above: Order Comment: [id number] 4 Result Comment: mL/m in/1.73m2 CKD-EPI Creatinine Equation (2020) Performed By: #### L 501.6710, L3410.9998, L500.4050, L100.0100, L101.9900, L504.2610 #### [facility] [address] [place], [address] Globulin (S) [Mass/Vol] 2.7 g/dL Normal 2.2-4.2 [facility] Comment on above: Order Comment: [id number] 4 Performed By: #### L 501.6710, L3410.9998, L500.4050, L100.0100, L101.9900, L504.2610 #### [facility] [address] [place], [address] Glucose [Mass/Vol] 100 mg/dL High 70-99 [facility] Comment on above: Order Comment: [id number] 4 Performed By: #### L 501.6710, L3410.9998, L500.4050, L100.0100, L101.9900, L504.2610 #### [facility] [address] [place], [address] Potassium [Moles/Vol] 3.9 mmol/L Normal 3.3-5.1 [facility] Comment on above: Order Comment: 63531 4 Performed By: #### L 501.6710, L3410.9998, L500.4050, L100.0100, L101.9900, L504.2610 #### [facility] [address] [place], [address] Sodium [Moles/Vol] 137 mmol/L Normal 133-145 [facility] Comment on above: Order Comment: [id number] 4 Performed By: #### L 501.6710, L3410.9998, L500.4050, L100.0100, L101.9900, L504.2610 #### [facility] [address] [place], [place], [id number] (249) T PROT 7.2 g/dL Normal 5.9-8.4 [facility] Comment on above: Order Comment: [id number] 4 Performed By: #### L 501.6710, L3410.9998, L500.4050, L100.0100, L101.9900, L504.2610 #### [facility] [address] [place], [address] Urea nitrogen [Mass/Vol] 13 mg/dL Normal 4-19 [facility] Comment on above: Order Comment: [id number] 4 Performed By: #### L 501.6710, L3410.9998, L500.4050, L100.0100, L101.9900, L504.2610 #### [facility] [address] [place], [address] Eosinophil percentageOrdered By: Samuel Nunez on 12-13-2024 Eosinophils/100 WBC (Bld) 1.7 % 0-5 [facility] Erythrocyte Sed Rateon 12-13 SED RATE 1 mm/hr Normal 0-30 [facility] Comment on above: Performed By: #### L 501.6710, L3410.9998, L500.4050, L100.0100, L101.9900, L504.2610 #### [facility] [address] [place], [address] Erythrocyte distribution wid th ratioOrdered By: Samuel Nunez on 12-13-2024 Erythrocyte distribution width (RBC) [Ratio] 12.2 % 11.6-14.6 [facility] Erythrocyte distribution wid th standard deviationOrdered By: Samuel Nunez on 12-13-2024 Erythrocyte distribution width (RBC) [Entitic vol] 39.5 fL 35.1-43.9 [facility] Erythrocyte distribution width (RBC) [Ratio] 39.5 fl 35.1-43.9 [facility] Erythrocyte sedimentation ra teOrdered By: Samuel Nunez on 12-13-2024 ESR (Bld) [Velocity] 1 mm/h 0-[address] [facility] GFR/1.73 sq M.predicted ezra g non-blacks MDRD (S/P/Bld) [Vol rate/Area]Ordered By: Samuel Nunez on 12-13-2024 Estimated GFR (MDRD) Non-Af Amer 119 >60 [facility] Comment on above: mL/min/1.73m2 CKD-EP I Creatinine Equation (2020) Glomerular filtration rate ( GFR) estimation/1.73 sq m using serum, plasma, or whole bOrdered By: Samuel Nunez on 12-13-2024 GFR/1.73 sq M.predicted among non-blacks MDRD (S/P/Bld) [Vol rate/Area] 119 mL/min/{1.73_m2} >60 [facility] Comment on above: mL/min/1.73m2 CKD-EP I Creatinine Equation (2020) Hematocrit Auto (Bld) [Volum e fraction]Ordered By: Samuel Nunez on 12-13-2024 Hematocrit (Bld) [Volume fraction] 37.4 % 37-47 [facility] Hemoglobin measurementOrdere d By: Samuel Nunez on 12-13-2024 Hemoglobin (Bld) [Mass/Vol] 12.3 g/dL 12.0-15.0 [facility] Immature granulocytes/100 WB C Auto (Bld)Ordered By: Samuel Nunez on 12-13-2024 Immature granulocytes/100 WBC (Bld) 0.300 % 0.0-0.9 [facility] Comment on above: IG% - Immature Granu locytes (promyelocytes, myelocytes and metamyelocytes) > 1% indicates that a LEFT SHIFT is Present. LDHon 12-13-2024 LDH 169 U/L Normal 84-246 [facility] Comment on above: Order Comment: [id number] 1 Performed By: #### L 501.5912, L3410.9998, L500.4050, L100.0100, L101.9900, L504.2610 #### [facility] [address] [place], [address] Laboratory - Chemistry and C hemistry - challengeOrdered By: Samuel Nunez on 12-13-2024 AST [Catalytic activity/Vol] 21 U/L <32 [facility] Lactate dehydrogenase (LDH) measurementOrdered By: Samuel Nunez on 12-13-2024 LDH [Catalytic activity/Vol] 169 U/L 84-246 [facility] Lymphocytes Auto (Unsp spec) [#/Vol]Ordered By: Samuel Nunez on 12-13-2024 Lymphocytes (Bld) [#/Vol] 2.41 10*3/uL 0.83-4.51 [facility] Lymphocytes/100 WBC Auto (Un sp spec)Ordered By: Samuel Nunze on 12-13-2024 Lymphocytes/100 WBC (Bld) 35.1 % 19-41 [facility] MCV (mean corpuscular volume ) determinationOrdered By: Samuel Nunez on 12-13-2024 MCV (RBC) [Entitic vol] 87.8 fL 81-99 [facility] Mean corpuscular hemoglobin (MCH) determinationOrdered By: Samuelestefani Nunez on 12-13-2024 MCH (RBC) [Entitic mass] 28.9 pg 27.0-32.0 [facility] Mean corpuscular hemoglobin concentration (MCHC) determinationOrdered By: Samuel Nunez on 12-13-2024 MCHC (RBC) [Mass/Vol] 32.9 g/dL 32-36 [facility] Mean platelet volume determi nationOrdered By: Samuel Nunez on 12-13-2024 Platelet mean volume (Bld) [Entitic vol] 10.8 fL 6.2-12.0 [facility] Monocyte percentageOrdered B y: Samuel Nunez on 12-13-2024 Monocytes/100 WBC (Bld) 8.2 % 0-10 [facility] Neutrophil percentageOrdered By: Samuel Nunez on 12-13-2024 Neutrophils/100 WBC (Bld) 54.0 % 47-70 [facility] Nucleated red blood cell per centageOrdered By: Samuel Nunez on 12-13-2024 Nucleated RBC/100 WBC (Bld) [Ratio] 0 % 0-5 [facility] Platelet countOrdered By: Ra good Nunez on 12-13-2024 Platelets (Bld) [#/Vol] 290 10*3/uL 150-450 [facility] Potassium (Unsp spec) [Mass/ Vol]Ordered By: Samuel Nunez on 12-13-2024 Potassium [Moles/Vol] 3.9 mmol/L 3.3-5.1 [facility] Potassium measurement (mass/ volume)Ordered By: Samuel Nunez on 12-13-2024 Potassium (Unsp spec) [Mass/Vol] 3.9 mmol/L 3.3-5.1 [facility] RBC Auto (Bld) [#/Vol]Ordere d By: Samuel Nunez on 12-13-2024 RBC (Bld) [#/Vol] 4.26 10*6/uL 4.2-5.4 [facility] Serum creatinine measurement (mass/volume)Ordered By: Samuel Nunez on 12-13-2024 Creatinine [Mass/Vol] 0.68 mg/dL Low 0.70-1.20 [facility] Serum globulin measurementOr dered By: Samuel Nunez on 12-13-2024 Globulin (S) [Mass/Vol] 2.7 g/dL 2.2-4.2 [facility] Serum glucose measurement (m ass/volume)Ordered By: Samuel Nunez on 12-13-2024 Glucose [Mass/Vol] 100 mg/dL High 70-99 [facility] Serum or plasma C reactive p rotein measurement (mass/volume)Ordered By: Samuel Nunez on 12-13-2024 CRP [Mass/Vol] mg/L 0.0-3.0 [facility] Serum or plasma alanine lynn otransferase (ALT) measurementOrdered By: Samuel Nunez on 12-13-2024 ALT [Catalytic activity/Vol] 34 U/L <35 [facility] Serum or plasma albumin nadine urement (mass/volume)Ordered By: Samuel Nunez on 12-13-2024 Albumin [Mass/Vol] 4.6 g/dL 3.5-5.0 [facility] Serum or plasma albumin/glob ulin mass ratioOrdered By: Samuel Nunez on 12-13-2024 Albumin/Globulin [Mass ratio] 1.7 {ratio} 0.9-2.4 [facility] Serum or plasma alkaline rosa sphatase measurementOrdered By: Samuel Nunez on 12-13-2024 ALP [Catalytic activity/Vol] 48 U/L 35-104 [facility] Serum or plasma calcium nadine urement (mass/volume)Ordered By: Samuel Nunez on 12-13-2024 Calcium [Mass/Vol] 9.0 mg/dL 7.6-11.0 [facility] Serum or plasma urea nitroge n measurement (mass/volume)Ordered By: Samuel Nunez on 12-13-2024 Urea nitrogen [Mass/Vol] 13 mg/dL 4-19 [facility] Sodium levelOrdered By: Angela Mei on 12-13-2024 Sodium [Moles/Vol] 137 mmol/L 133-145 [facility] Total proteinOrdered By: Christiano Nunez on 12-13-2024 Protein [Mass/Vol] 7.2 g/dL 5.9-8.4 [facility] White blood cell (WBC) count Ordered By: Samuel Nunez on 12-13-2024 WBC (Bld) [#/Vol] 6.9 10*3/uL 4.4-11.0 [facility] Gastric Emptying Studyon Gastric Emptying Study [facility] [address] [place] [address] Gastric Emptying Study MR#: [id number] Acct: [id number] Name: PROSPER HARRY Rep #: [id number] : 1990 F 33 From: Conrado Dubose PCP: Dr. Ambreen Lyn MD Status: REG CLI Study: Gastric Emptying Study Date of Exam: 11/22/24 Exam# [id number] Ordering Dr: Samuel Nunez DO PROCEDURE: Nuclear medicine gastric emptying study REASON FOR EXAM: Bloating and abdominal pain. TECHNIQUE: Solid phase gastric emptying study, standard technique. RADIOPHARMACEUTICAL: 1.1 millicurie technetium 99 M sulfur colloid COMPARISON: None. FINDINGS: At 59.5 minutes, 29% gastric emptying is seen. By linear fit, gastric emptying half time is calculated at 99.3 minutes. NM/Gastric Emptying Study IMPRESSION: Normal gastric emptying, with 29% gastric emptying seen at 59.5 minutes. Reading Location: [address] CC: Dr. Ambreen Lyn MD; Samuel Nunez DO [employer]ocket [employer] Operator: Signed Normal [facility] 12 Lead EKG performed by [facility] on 11-15-2024 12 [place] [address] 12 Lead EKG performed by [facility] 11/15/24 1259 MR#: [id number] Acct: [id number] Name: PROSPER HARRY Rep #: [id number] : 1990 33 From: Chi Cordon MD Attending Dr: Dr. Chi Cordon MD Status: DEP A ERIKA Ordering Dr: Chi Cordon MD Date: 11/15/24 Location: [facility] Sex: F C Admitted: [facility]/12 Lead EKG performed by [facility] ECG Report Interpretation S inus Rhythm - Negative precordial T-waves. WITHIN NORMAL LIMITSElectronically signed on 11/16/2024 at 11:37 by Chi Cordonwood Software Version 8610 11/16/24 1140 Date Chi Cordon MD CC: Dr. Ambreen Lyn MD Date Dictated: 11/15/24 1259 Date Transcribed: 11/15/24 125 [employer]ocket [employer] Operator: CO Signed Normal [facility] Cardiology Visit Reporton Cardiology Visit Report [facility] [address] [place] [address] OFFICE VISIT Date of Service: 11/15/24 MR#: [id number] Acct: [id number] Name: PROSPER HARRY Rep #: [id number] : 1990 Provider: Dr. Chi Cordon MD Age/Sex: 33/F Location: [facility] Status: Signed HPI HPI History of Present Illness Details: Pleasant 33-year-old lady with a history of Crohn's disease and celiac disease who presents for evaluation of shortness of breath as well as an abnormal EKG. She has been started on Stelara recently and as part of the workup she had a baseline EKG which apparently demonstrated some abnormal T waves. She underwent an echocardiographic evaluation with demonstrated preserved ejection fraction of 65% and no wall motion abnormalities present. She presents today for further evaluation. She denies any neck arm or jaw discomfort suggest angina no dizziness or diaphoresis no near-syncope or syncope. Her physical exam is unremarkable. Her EKG demonstrated sinus rhythm with no acute changes. At a rate of 85 bpm Intake Vital Signs 09/11/24 05:49 10/23/24 10:26 11/15/24 12:59 Height 5 ft 6 in 5 ft 6 in 5 ft 6 in Weight: 179 lb BMI 28.8 BP 125/83 H Blood Pressure Location Lt brachial Position Sitting Respiration 14 Pulse 94 Pulse Source Monitor Intake Visit Reasons: ABN EKG (Self) Offal Icer Poultry Required: No Accompanied by: Self Is patient in pain?: No Allergies Gadolinium-MRI Contrast Medium Allergy (Intermediate, Verified 11/15/24 13:03) Hives morphine Allergy (Verified 11/15/24 13:03) Hives Medications ???Medication ???Instructions ???Recorded ???Confirmed ???Type cholecalciferol (vitamin D3) 25 25 mcg PO DAILY 10/31/21 11/15/24 History mcg (1,000 unit) capsule ustekinumab 90 mg/mL subcutaneous 90 mg subcut Q8W #1 mL 10/02/24 0 11/15/24 Rx syringe (Stelara) omeprazole 40 mg capsule,delayed 40 mg PO QDAY 11/10/24 11/15/24 Hi story release pyridoxine (vitamin B6) 50 mg 50 mg PO TID 11/10/24 11/15/24 His tory tablet vitamin E 268 mg (400 unit) capsule 268 mg PO QDAY 11/10/24 5 History ascorbic acid 1,000 1 ea PO DAILY PRN 11/15/24 5 History tl-fhinznihgavd-vezmjrsv powder effervescent pack (Emergen-C Immune Plus) [facility] Medical History Abnormal EKG Fatigue SOB (shortness of breath) Crohn's disease Celiac disease Weight gain, abnormal Biliary colic Anemia Anxiety, generalized IgA deficiency Non-celiac gluten sensitivity Malabsorption syndrome Metabolic syndrome Irritable bowel syndrome with diarrhea Abdominal pain GERD (gastroesophageal reflux disease) Gestational diabetes mellitus (GDM) Biliary dyskinesia Epigastric pain Acute hepatitis Pancytopenia Ovarian cyst Surgical History Hx of anterior cruciate ligament tear reconstruction H/O hemicolectomy History of cholecystectomy ( 04/2020) S/P appendectomy S/P ACL surgery S/P tonsillectomy Family History Grandmother Diabetes Father Hypertension Grandfather Cancer Sister Crohn's disease Social History Smoking Status: Never smoker alcohol intake: current details: occasionally substance use type: does not use caffeine: Yes Type: coffee what type of physical activity do you participate in: aerobics frequency: 5-6 times per week seatbelt use: always do you feel safe at home: Yes additional social history: -Martin ROS Const Const: Negative for fatigue, weakness, headache(s), daytime sleepiness or difficulty sleeping ENT ENT: Negative for headache(s), dizziness or Nosebleed/epistaxis Cardio Chest Pain: No Palpitations: No Edema: None Resp Respiratory: Positive for SOB with activity (clilmbing stairs); Negative for SOB at rest, SOB orthopnea SOB lying down or Cough GI GI: Negative nausea, vomiting or heartburn Neuro Neuro: Negative for dizziness, lightheadedness, near syncope, headache(s) or weakness Endo Endo: Negative for fatigue Cardiology Exam Const Appearance: cooperative, healthy appearing, no acute distress, well developed and well groomed Nutritional Appearance: average body habitus and well nourished Orientation: alert, awake and oriented x3 Head Head: normal to inspection, normocephalic and atraumatic Ears: hearing grossly normal bilaterally and external ears normal Nose: external nose normal, nares normal, nasal mucous membranes and turbinates normal, septum normal and no nasal discharge Face and Sinus: face symmetric Mouth: oral mucosae normal, tongue normal, oropharynx normal and moist mu (more content not included)... Normal [facility] Echo Completeon 10-27-2024 Echo Complete [facility] [address] [place] [address] Echo Complete 10/27/24 0857 MR#: [id number] Acct: [id number] Name: PROSPER HARRY Rep #: [id number] : 1990 33 From: Afsaneh Gaitan MD Attending Dr: Dr. Sejal Beal MD Status: REG CLI Ordering Dr: Sejal Beal MD Date: 10/27/24 Location: [facility] Sex: F C Admitted: Reason For Study: TRAUMA/INJURY Procedure This was a 2D Doppler, Color Flow transthoracic echocardiogram. Exam performed in department. Left Ventricle Normal left ventricle. The left ventricular ejection fraction is 65 %. No evidence for diastolic dysfunction. Right Ventricle Normal right ventricle. Atria The left and right atria are normal. Mitral Valve Trivial mitral valve insufficiency. Tricuspid Valve Trivial tricuspid valve insufficiency. Normal pulmonary artery pressure. Aortic Valve Trisinus/trileaflet aortic valve. Pulmonic Valve Trivial pulmonic valve insufficiency. Great Vessels Normal sized aortic root. Pericardium/Pleural No pericardial effusion. MMode/2D Measurements Calculations LVIDd: 3.9 cm IVSd: 0.87 cm LVOT diam: 2.0 cm LVIDs: 2.7 cm LVPWd: 0.95 cm LVOT area: 3.0 cm2 RVDd: 3.3 cm FS: 31.9 % asc Aorta Diam: 2.8 cm LAV(MOD-bp): 35.9 ml LVAd ap4: 22.9 cm2 LAV(MOD-bp) Indexed: 20.0 ml/m2 LVLd ap4: 8.0 cm LAV(MOD-sp2): 37.2 ml EDV(MOD-sp4): 53.6 ml LAV(MOD-sp4): 33.3 ml EDV(sp4-el): 56.0 ml LVAs ap4: 11.2 cm2 LVLs ap4: 6.3 cm ESV(MOD-sp4): 16.8 ml ESV(sp4-el): 16.9 ml EF(MOD-sp4): 68.6 % EF(sp4-el): 69.8 % LVAd ap2: 20.7 cm2 SV(MOD-sp4): 36.8 ml SV(MOD-sp2): 28.9 ml LVLd ap2: 7.7 cm SI(MOD-sp4): 20.5 ml/m2 SI(MOD-sp2): 16.1 ml/m2 EDV(MOD-sp2): 46.8 ml EDV(sp2-el): 47.2 ml LVAs ap2: 11.5 cm2 LVLs ap2: 6.2 cm ESV(MOD-sp2): 17.9 ml ESV(sp2-el): 18.2 ml EF(MOD-sp2): 61.8 % SV(sp4-el): 39.1 ml Ao sinus diam: 2.[address] Junction: 2.3 cm LA dimension(2D): 3.1 cm LA A4 area: 14.6 cm2 RA A4 area: 10.4 cm2 TAPSE: 2.2 cm Time Measurements MV dec time: 0.22 sec Doppler Measurements Calculations MV E max berto: 77.3 cm/sec Lat Peak E' Berto: 15.9 cm/sec Med Peak E' Berto: 12.8 cm/sec MV A max berto: 61.6 cm/sec E/E' lat: 4.9 E/E' med: 6.0 MV E/A: 1.3 MV dec slope: 358.5 cm/sec2 Ao V2 max: 139.6 cm/sec LV V1 max: 101.4 cm/sec Ao max P.8 mmHg LV V1 max P.1 mmHg Ao V2 mean: 102.4 cm/sec LV V1 mean P.4 mmHg Ao mean P.5 mmHg LV V1 mean: 72.2 cm/sec Ao V2 VTI: 28.9 cm LV V1 VTI: 21.8 cm AV (velocity ratio): 0.75 LYNNE(I,D): 2.3 cm2 LYNNE(V,D): 2.2 cm2 SV(LVOT): 65.4 ml PA V2 max: 94.0 cm/sec TR max berto: 150.3 cm/sec TR max P.0 mmHg ECHO/Echo Complete Interpretation Summary The left ventricular ejection fraction is 65 %. No evidence for diastolic dysfunction. Ordering Physician: Sejal Beal Referring Physician: Ambreen Lyn MD Performed By: Shelly Jones [facility] 10/27/24953 Date Afsaneh Gaitan MD CC: Dr. Sejal Beal MD; Dr. Ambreen Lyn MD Date Dictated: 10/27/2457 Date Transcribed: 10/27/24953 Rocket Assembly Operator: Signed [facility] Enterography Abd/Kal 10-23 Enterography Abd/Pel [facility] Imaging Services [address] [place] [address] Enterography Abd/Pel MR#: [id number] Acct: [id number] Name: PROSPER HARRY Rep #: [id number] : 1990 F 33 From: Herminio figueroa MD PCP: Dr. Ambreen Lyn MD Status: REG CLI Study: Enterography Abd/Pel Date of Exam: 10/23/24 Exam# [id number] Ordering Dr: Samuel Nunez DO 0:[id number] STUDY: MR ENTEROGRAPHY WITH CONTRAST REASON FOR EXAM: Female, 33 years old. Crohn''s disease, unspecified, without complications TECHNIQUE: Multipulse sequence MRI performed with IV contrast according to standard MR enterography protocol following administration of oral contrast for maximal bowel distention. Images were obtained from the dome of the diaphragm to the symphysis pubis. clariscan 15ml IV was administered intravenously. TECHNICAL QUALITY: Image Quality: Satisfactory Small Bowel Distension: Adequate. COMPARISON: CT of the pelvis dated April 22, 2011. Right upper quadrant ultrasound dated April 15, 2023 FINDINGS: FINDINGS: Bowel: Bowel wall thickening: Absent. Skip lesions: None. Vascularity: Normal. Enhancement: Normal. Fistula: None. Abscess: None. Other Findings: The visualized lung bases are unremarkable. The visualized portions of the heart are within normal limits. Normal liver. Prior cholecystectomy. Normal spleen. Normal pancreas. Normal bilateral adrenal glands. Normal right kidney. Normal left kidney. Gastrointestinal system: The bowel loops opacified with contrast. Normal visualized stomach. Normal small intestine. Normal colon. There is non-visualization of the appendix. No bowel dilatation is seen. No abnormal wall thickening is present. No visualized colonic diverticula. No visualized stricturing or fistulous connections of the bowel loops. No abnormal adhesions seen between the bowel loops. Normal abdominal aorta. Normal inferior vena cava. Normal retroperitoneum. Normal urinary bladder. Normal visualized uterus and ovaries. Normal abdominal wall. Normal osseous structures. MRI/Enterography Abd/Pel IMPRESSION: 1. Normal MR enterography. 2. No demonstrated skin lesions or narrowing or wall thickening. MR enterography References: Active bowel inflammation causes restricted diffusion on diffusion-weighted images which appears as bright signal. Electronically Signed: Herminio Thurman MD at 11:06 EST Reading Location ID and State: [facility] / [place] , Service support , CC: Dr. Ambreen Lyn MD; Samuel Nunez, Rocket Assembly Operator: Signed [facility] ED NOTEon 10-14-2024 ED NOTE HNO ID: [id number] Author: DEBO YU RN Service: ? Author Type: Registered Nurse Type: ED Notes Filed: 10/14/2024 00:34 Note Text: Discharge instructions d/w pt and spouse at bedside. Stated understanding with no further questions for this nurse. Encouraged f/u with PCP and referring doctors given. Stated understanding. Prescription(S) were given X 0. [facility] ALLIED HEALTHon 10-13-2024 ALLIED HEALTH HNO ID: [id number] Author: MARÍA WILLIAM RT(Oscar) Service: ? Author Type: Technologist Type: Allied Health Filed: 10/13/2024 19:24 Note Text: Radiology Service Progress Note PATIENT NAME: Prosper Harry DATE OF SERVICE: October 13, 2024 TIME: 7:23 PM PATIENT IDENTITY VERIFICATION COMPLETED USING TWO (2) IDENTIFIERS: Name and Date of confirmed by patient verbally and Name and Date of confirmed by identification band. FALL SCREENING: Has the patient had 2 falls in the last year or 1 fall with injury or currently using an Ambulatory Assistive Device (Walker, Cane, Wheelchair, Crutches, etc.)? Emergency Room Patient: Screened in ED PATIENT GENDER DATA: Female. status: : No status: N/A PATIENT RELEVANT IMPLANT DATA REVIEWED: Not Applicable PATIENT PRESENTS WITH AN IMPLANTABLE OR ATTACHED MANAGING CONSULTANT CLINICAL PROFESSOR: No RADIOLOGY DEPARTMENT: General X-ray: Exam(s) Completed: Chest X-Ray PERIPHERAL IV DATA: Not applicable SIGNED BY: RT Hyacinth(R) October 13, 2024 7:23 PM [facility] Absolute neutrophil countOrd ered By: Sejal Beal on 10-13-2024 Neutrophils (Bld) [#/Vol] 4.0 10*3/uL 2.0-7.7 [facility] BETA HCG, QUANTITATIVE FOR E Don 10-13-2024 HCG.beta subunit Qn m[IU]/mL Normal <5.0 [facility] Comment on above: Order Comment: Speci men Type: BLOOD SPECIMEN Ordering Facility: [facility] Address: [address] [place] [address] Result Comment: Nega tive Performed By: #### 2 4323-8, HCGED, 00712-5 #### [facility] CLIA [id number] [address] [place] BNP (brain natriuretic pepti de measurement)Ordered By: Sejal Beal on 10-13-2024 Natriuretic peptide B (Bld) [Mass/Vol] 5.2 pg/mL 0-100 [facility] BNP,B-Type NATRIURETIC PEPTI Fariha 10-13-2024 Natriuretic peptide B (Bld) [Mass/Vol] 5.2 pg/mL Normal 0-100 [facility] Comment on above: Performed By: #### L 501.6710, L3410.9998, L500.4050, L100.0100, L101.9900, L504.2610 #### [facility] [address] [place], [address] Basophil percentageOrdered B y: Sejal Beal on 10-13-2024 Basophils/100 WBC (Bld) 0.6 % 0-1 [facility] CBC W Auto Differential pane l (Bld)on 10-13-2024 Basophils (Bld) [#/Vol] 0.05 10*3/uL Normal <0.11 [facility] Comment on above: Order Comment: Speci men Type: BLOOD SPECIMEN Ordering Facility: [facility] Address: [address] [place] [address] Performed By: #### 5 7021-8 #### [facility] CLIA [id number] [address] [place] Basophils/100 WBC (Bld) 0.5 % Normal [facility] Comment on above: Order Comment: Speci men Type: BLOOD SPECIMEN Ordering Facility: [facility] Address: [address] [place] [address] Performed By: #### 5 7021-8 #### [facility] CLIA [id number] [address] [place] Differential cell count method Nom (Bld) Auto Normal [facility] Comment on above: Order Comment: Speci men Type: BLOOD SPECIMEN Ordering Facility: [facility] Address: [address] [place] [address] Performed By: #### 5 7021-8 #### [facility] CLIA [id number] [address] Eosinophils (Bld) [#/Vol] 0.08 10*3/uL Normal <0.46 [facility] Comment on above: Order Comment: Speci men Type: BLOOD SPECIMEN Ordering Facility: [facility] Address: [address] [place] [address] Performed By: #### 5 7021-8 #### [facility] CLIA [id number] [address] Eosinophils/100 WBC (Bld) 0.9 % Normal [facility] Comment on above: Order Comment: Speci men Type: BLOOD SPECIMEN Ordering Facility: [facility] Address: [address] [place] [address] Performed By: #### 5 7021-8 #### [facility] CLIA [id number] [address] [place] Erythrocyte distribution width (RBC) [Ratio] 12.3 % Normal 11.5-15.0 [facility] Comment on above: Order Comment: Speci men Type: BLOOD SPECIMEN Ordering Facility: [facility] Address: [address] [place] [address] Performed By: #### 5 7021-8 #### [facility] CLIA [id number] [address] [place] Hematocrit (Bld) [Volume fraction] 36.6 % Normal 36.0-46.0 [facility] Comment on above: Order Comment: Speci men Type: BLOOD SPECIMEN Ordering Facility: [facility] Address: [address] [place] [address] Performed By: #### 5 7021-8 #### [facility] CLIA [id number] [address] [place] Hemoglobin (Bld) [Mass/Vol] 12.3 g/dL Normal 11.5-15.5 [facility] Comment on above: Order Comment: Speci men Type: BLOOD SPECIMEN Ordering Facility: [facility] Address: [address] [place] [address] Performed By: #### 5 7021-8 #### [facility] CLIA [id number] [address] [place] Immature granulocytes (Bld) [#/Vol] 0.06 10*3/uL Normal <0.10 [facility] Comment on above: Order Comment: Speci men Type: BLOOD SPECIMEN Ordering Facility: [facility] Address: [address] [place] [address] Performed By: #### 5 7021-8 #### [facility] CLIA [id number] [address] Immature granulocytes/100 WBC (Bld) 0.6 % Normal [facility] Comment on above: Order Comment: Speci men Type: BLOOD SPECIMEN Ordering Facility: [facility] Address: [address] [place] [address] Performed By: #### 5 7021-8 #### [facility] CLIA [id number] [address] [place] [address] [place] Lymphocytes (Bld) [#/Vol] 2.23 10*3/uL Normal 1.00-4.00 [facility] Comment on above: Order Comment: Speci men Type: BLOOD SPECIMEN Ordering Facility: [facility] Address: [address] [place] [address] Performed By: #### 5 7021-8 #### [facility] CLIA [id number] [address] [place] Lymphocytes/100 WBC (Bld) 24.1 % Normal [facility] Comment on above: Order Comment: Speci men Type: BLOOD SPECIMEN Ordering Facility: [facility] Address: [address] [place] [address] Performed By: #### 5 7021-8 #### [facility] CLIA [id number] [address] [place] [address] [place] MCH (RBC) [Entitic mass] 29.4 pg Normal 26.0-34.0 [facility] Comment on above: Order Comment: Speci men Type: BLOOD SPECIMEN Ordering Facility: [facility] Address: [address] [place] [address] Performed By: #### 5 7021-8 #### [facility] CLIA [id number] [address] MCHC (RBC) [Mass/Vol] 33.6 g/dL Normal 30.5-36.0 [facility] Comment on above: Order Comment: Speci men Type: BLOOD SPECIMEN Ordering Facility: [facility] Address: [address] [place] [address] Performed By: #### 5 7021-8 #### [facility] CLIA [id number] [address] MCV (RBC) [Entitic vol] 87.6 fL Normal 80.0-100.0 [facility] Comment on above: Order Comment: Speci men Type: BLOOD SPECIMEN Ordering Facility: [facility] Address: [address] [place] [address] Performed By: #### 5 7021-8 #### [facility] CLIA [id number] [address] [place] [address] [place] Monocytes (Bld) [#/Vol] 0.65 10*3/uL Normal <0.87 [facility] Comment on above: Order Comment: Speci men Type: BLOOD SPECIMEN Ordering Facility: [facility] Address: [address] [place] [address] Performed By: #### 5 7021-8 #### [facility] CLIA [id number] [address] [place] [address] [place] Monocytes/100 WBC (Bld) 7.0 % Normal [facility] Comment on above: Order Comment: Speci men Type: BLOOD SPECIMEN Ordering Facility: [facility] Address: [facility] [place] [address] Performed By: #### 5 7021-8 #### [facility] CLIA [id number] [address] [place] [address] [place] Neutrophils (Bld) [#/Vol] 6.19 10*3/uL Normal 1.45-7.50 [facility] Comment on above: Order Comment: Speci men Type: BLOOD SPECIMEN Ordering Facility: [facility] Address: [address] [place] [address] Performed By: #### 5 7021-8 #### [facility] CLIA [id number] [address] [place] Neutrophils/100 WBC (Bld) 66.9 % Normal [facility] Comment on above: Order Comment: Speci men Type: BLOOD SPECIMEN Ordering Facility: [facility] Address: [address] [place] [address] Performed By: #### 5 7021-8 #### [facility] CLIA [id number] [address] [place] [address] [place] Nucleated RBC (Bld) [#/Vol] 10*3/uL Normal <0.01 [facility] Comment on above: Order Comment: Speci men Type: BLOOD SPECIMEN Ordering Facility: [facility] Address: [address] [place] [address] Performed By: #### 5 7021-8 #### [facility] CLIA [id number] [address] [place] [address] [place] Nucleated RBC/100 WBC (Bld) [Ratio] 0.0 /100 WBC Normal [facility] Comment on above: Order Comment: Speci men Type: BLOOD SPECIMEN Ordering Facility: [facility] Address: [address] [place] [address] Performed By: #### 5 7021-8 #### [facility] CLIA [id number] [address] [place] [address] [place] Platelet mean volume (Bld) [Entitic vol] 10.0 fL Normal 9.0-12.7 [facility] Comment on above: Order Comment: Speci men Type: BLOOD SPECIMEN Ordering Facility: [facility] Address: [address] [place] [address] Performed By: #### 5 7021-8 #### [facility] CLIA [id number] [address] [place] [address] [place] Platelets (Bld) [#/Vol] 287 10*3/uL Normal 150-400 [facility] Comment on above: Order Comment: Speci men Type: BLOOD SPECIMEN Ordering Facility: [facility] Address: [address] [place] [address] Performed By: #### 5 7021-8 #### [facility] CLIA [id number] [address] [place] [address] [place] RBC (Bld) [#/Vol] 4.18 10*6/uL Normal 3.90-5.20 [facility] Comment on above: Order Comment: Speci men Type: BLOOD SPECIMEN Ordering Facility: [facility] Address: [address] [place] [address] Performed By: #### 5 7021-8 #### [facility] CLIA [id number] [address] [place] [address] [place] WBC (Bld) [#/Vol] 9.26 10*3/uL Normal 3.70-11.00 [facility] Comment on above: Order Comment: Speci men Type: BLOOD SPECIMEN Ordering Facility: [facility] Address: [address] [place] [address] Performed By: #### 5 7021-8 #### [facility] CLIA [id number] [address] [place] [address] [place] CBC W/Diff, Automatedon 01-0 -2024 Absolute Lymph 2.96 X10 3/uL Normal 0.83-4.51 [facility] Comment on above: Performed By: #### L 501.6710, L3410.9998, L500.4050, L100.0100, L101.9900, L504.2610 #### [facility] [address] [place], [address] Absolute Neut 4.0 X10 3/uL Normal 2.0-7.7 [facility] Comment on above: Performed By: #### L 501.6710, L3410.9998, L500.4050, L100.0100, L101.9900, L504.2610 #### [facility] [address] [place], [address] Basophils/100 WBC (Bld) 0.6 % Normal 0-1 [facility] Comment on above: Performed By: #### L 501.6710, L3410.9998, L500.4050, L100.0100, L101.9900, L504.2610 #### [facility] [address] [place], [address] Eosinophils/100 WBC (Bld) 2.3 % Normal 0-5 [facility] Comment on above: Performed By: #### L 501.6710, L3410.9998, L500.4050, L100.0100, L101.9900, L504.2610 #### [facility] [address] [place], [address] Erythrocyte distribution width (RBC) [Ratio] 12.6 % Normal 11.6-14.6 [facility] Comment on above: Performed By: #### L 501.6710, L3410.9998, L500.4050, L100.0100, L101.9900, L504.2610 #### [facility] [address] [place], [address] Hematocrit (Bld) [Volume fraction] 36.4 % Low 37-47 [facility] Comment on above: Performed By: #### L 501.6710, L3410.9998, L500.4050, L100.0100, L101.9900, L504.2610 #### [facility] [address] [place], [address] Hemoglobin (Bld) [Mass/Vol] 12.0 g/dL Normal 12.0-15.0 [facility] Comment on above: Performed By: #### L 501.6710, L3410.9998, L500.4050, L100.0100, L101.9900, L504.2610 #### [facility] [address] [place], [address] IG% 0.600 Normal 0.0-0.9 [facility] Comment on above: Result Comment: IG% - Immature Granulocytes (promyelocytes, myelocytes and metamyelocytes) > 1% indicates that a LEFT SHIFT is Present. Performed By: #### L 501.6710, L3410.9998, L500.4050, L100.0100, L101.9900, L504.2610 #### [facility] [address] [place], [address] Lymphocytes/100 WBC (Bld) 37.4 % Normal 19-41 [facility] Comment on above: Performed By: #### L 501.6710, L3410.9998, L500.4050, L100.0100, L101.9900, L504.2610 #### [facility] [address] [place], [address] MCH (RBC) [Entitic mass] 29.1 pg Normal 27.0-32.0 [facility] Comment on above: Performed By: #### L 501.6710, L3410.9998, L500.4050, L100.0100, L101.9900, L504.2610 #### [facility] [address] [place], [address] MCHC (RBC) [Mass/Vol] 33.0 g/dL Normal 32-36 [facility] Comment on above: Performed By: #### L 501.6710, L3410.9998, L500.4050, L100.0100, L101.9900, L504.2610 #### [facility] [address] [place], [address] MCV (RBC) [Entitic vol] 88.3 fL Normal 81-99 [facility] Comment on above: Performed By: #### L 501.6710, L3410.9998, L500.4050, L100.0100, L101.9900, L504.2610 #### [facility] [address] [place], [address] Monocytes/100 WBC (Bld) 8.7 % Normal 0-10 [facility] Comment on above: Performed By: #### L 501.6710, L3410.9998, L500.4050, L100.0100, L101.9900, L504.2610 #### [facility] [address] [place], [address] Neutrophils/100 WBC (Bld) 50.4 % Normal 47-70 [facility] Comment on above: Performed By: #### L 501.6710, L3410.9998, L500.4050, L100.0100, L101.9900, L504.2610 #### [facility] [address] [place], [address] Nucleated RBC (Bld) [#/Vol] 0 10*3/uL Normal 0-5 [facility] Comment on above: Performed By: #### L 501.6710, L3410.9998, L500.4050, L100.0100, L101.9900, L504.2610 #### [facility] [address] [place], [address] Platelet mean volume (Bld) [Entitic vol] 10.5 fL Normal 6.2-12.0 [facility] Comment on above: Performed By: #### L 501.6710, L3410.9998, L500.4050, L100.0100, L101.9900, L504.2610 #### [facility] [address] [place], [address] Platelets (Bld) [#/Vol] 295 10*3/uL Normal 150-450 [facility] Comment on above: Performed By: #### L 501.6710, L3410.9998, L500.4050, L100.0100, L101.9900, L504.2610 #### [facility] [address] [place], [address] RBC (Bld) [#/Vol] 4.12 10*6/uL Low 4.2-5.4 [facility] Comment on above: Performed By: #### L 501.6710, L3410.9998, L500.4050, L100.0100, L101.9900, L504.2610 #### [facility] [address] [place], [address] RDW SD 40.8 fl Normal 35.1-43.9 [facility] Comment on above: Performed By: #### L 501.6710, L3410.9998, L500.4050, L100.0100, L101.9900, L504.2610 #### [facility] [address] [place], [address] WBC (Bld) [#/Vol] 7.9 10*3/uL Normal 4.4-11.0 [facility] Comment on above: Performed By: #### L 501.6710, L3410.9998, L500.4050, L100.0100, L101.9900, L504.2610 #### [facility] [address] [place], [address] Comprehensive metabolic 2000 panelon 10-13-2024 Albumin [Mass/Vol] 4.8 g/dL Normal 3.9-4.9 [facility] Comment on above: Order Comment: Speci men Type: BLOOD SPECIMEN Ordering Facility: [facility] Address: [address] [place] [address] Performed By: #### 2 4323-8, HCGED, 20820-5 #### [facility] CLIA [id number] [address] [place] [address] [place] ALP [Catalytic activity/Vol] 54 U/L Normal 34-123 [facility] Comment on above: Order Comment: Speci men Type: BLOOD SPECIMEN Ordering Facility: [facility] Address: [address] [place] [address] Performed By: #### 2 4323-8, HCGED, #### [facility] CLIA [id number] [address] [place] [address] [place] ALT [Catalytic activity/Vol] 56 U/L High 7-38 [facility] Comment on above: Order Comment: Speci men Type: BLOOD SPECIMEN Ordering Facility: [facility] Address: [address] [place] [address] Performed By: #### 2 4323-8, HCGED, 61696-7 #### [facility] CLIA [id number] [address] [place] [address] [place] Anion gap [Moles/Vol] 12 mmol/L Normal 8-15 [facility] Comment on above: Order Comment: Speci men Type: BLOOD SPECIMEN Ordering Facility: [facility] Address: [address] [place] [address] Performed By: #### 2 4323-8, HCGED, 12910-8 #### [facility] CLIA [id number] [address] [place] [address] [place] AST [Catalytic activity/Vol] 29 U/L Normal 13-35 [facility] Comment on above: Order Comment: Speci men Type: BLOOD SPECIMEN Ordering Facility: [facility] Address: [address] [place] [address] Performed By: #### 2 4323-8, HCGED, 87450-3 #### [facility] CLIA [id number] [address] [place] [address] [place] Bilirubin [Mass/Vol] 0.2 mg/dL Normal 0.2-1.3 [facility] Comment on above: Order Comment: Speci men Type: BLOOD SPECIMEN Ordering Facility: [facility] Address: [address] [place] [address] Performed By: #### 2 4323-8, HCGED, #### [facility] CLIA [id number] [address] [place] [address] [place] Calcium [Mass/Vol] 9.9 mg/dL Normal 8.5-10.2 [facility] Comment on above: Order Comment: Speci men Type: BLOOD SPECIMEN Ordering Facility: [facility] Address: [address] [place] [address] Performed By: #### 2 4323-8, HCGED, #### [facility] CLIA [id number] [address] [place] [address] [place] Chloride [Moles/Vol] 103 mmol/L Normal 98-107 [facility] Comment on above: Order Comment: Speci men Type: BLOOD SPECIMEN Ordering Facility: [facility] Address: [address] [place] [address] Performed By: #### 2 4323-8, HCGED, #### [facility] CLIA [id number] [address] [place] [address] [place] CO2 [Moles/Vol] 23 mmol/L Normal 22-30 [facility] Comment on above: Order Comment: Speci men Type: BLOOD SPECIMEN Ordering Facility: [facility] Address: [address] [place] [address] Performed By: #### 2 4323-8, HCGED, #### [facility] CLIA [id number] [address] [place] [address] [place] Creatinine [Mass/Vol] 0.62 mg/dL Normal 0.58-0.96 [facility] Comment on above: Order Comment: Speci men Type: BLOOD SPECIMEN Ordering Facility: [facility] Address: [address] [place] [address] Performed By: #### 2 4323-8, HCGED, #### [facility] CLIA [id number] [address] Creatinine and Glomerular filtration rate.predicted panel (S/P/Bld) 122 mL/min/1.73m??? Normal >=60 [facility] Comment on above: Order Comment: Isacc lo Type: BLOOD SPECIMEN Ordering Facility: [facility] Address: [address] [place] [address] Result Comment: Isabella mated Glomerular Filtration Rate (eGFR) is calculated using the 2020 CKD-EPI creatinine equation. This equation utilizes serum creatinine, sex, and age as parameters. The creatinine assay has traceable calibration to isotope dilution-mass spectrometry. Refer to KDIGO guidelines for clinical interpretation. In patients with unstable renal function, e.g. those with acute kidney injury, the eGFR may not accurately reflect actual GFR. Performed By: #### 2 4323-8, HCGED, #### [facility] CLIA [id number] [address] Glucose [Mass/Vol] 102 mg/dL High 74-99 [facility] Comment on above: Order Comment: Isacc lo Type: BLOOD SPECIMEN Ordering Facility: [facility] Address: [address] [place] [address] Result Comment: The [place] Diabetes [employer] (ADA) provides guidance for cutoff values for fasting glucose and random glucose. The ADA defines fasting as no caloric intake for at least 8 hours. Fasting plasma glucose results between 100 to 125 mg/dL indicate increased risk for diabetes (prediabetes). Fasting plasma glucose results greater than or equal to 126 mg/dL meet the criteria for diagnosis of diabetes. In the absence of unequivocal hyperglycemia, results should be confirmed by repeat testing. In a patient with classic symptoms of hyperglycemia or hyperglycemic crisis, random plasma glucose results greater than or equal to 200 mg/dL meet the criteria for diagnosis of diabetes. Reference: Standards of Medical Care in Diabetes 2016, [place] [employer]. Diabetes Care. 2016.39(Suppl 1). Performed By: #### 2 4323-8, HCGED, #### [facility] CLIA [id number] [address] [facility] Potassium [Moles/Vol] 4.0 mmol/L Normal 3.7-5.1 [facility] Comment on above: Order Comment: Speci men Type: BLOOD SPECIMEN Ordering Facility: [facility] Address: [address] [place] [address] Performed By: #### 2 4323-8, HCGED, 28777-4 #### [facility] CLIA [id number] [address] [place] [address] [place] Protein [Mass/Vol] 7.6 g/dL Normal 6.3-8.0 [facility] Comment on above: Order Comment: Speci men Type: BLOOD SPECIMEN Ordering Facility: [facility] Address: [address] [place] [address] Performed By: #### 2 4323-8, HCGED, #### [facility] CLIA [id number] [address] Sodium [Moles/Vol] 138 mmol/L Normal 136-144 [facility] Comment on above: Order Comment: Speci men Type: BLOOD SPECIMEN Ordering Facility: [facility] Address: [address] [place] [address] Performed By: #### 2 4323-8, HCGED, 21480-4 #### [facility] CLIA [id number] [address] [place] [facility] Urea nitrogen [Mass/Vol] 10 mg/dL Normal 7-21 [facility] Comment on above: Order Comment: Speci men Type: BLOOD SPECIMEN Ordering Facility: [facility] Address: [address] [place] [address] Performed By: #### 2 4323-8, HCGED, 14063-7 #### [facility] CLIA [id number] [address] OF [facility] D-Dimer Quantitative (DVT/PE )on 10-13-2024 D-DIMER QUANT 0.27 FEU/ug/m Normal 0.27-0.49 [facility] Comment on above: Result Comment: NORM AL D-Dimer level (<0.50) indicates no DVT or PE. Performed By: #### L 501.6710, L3410.9998, L500.4050, L100.0100, L101.9900, L504.2610 #### [facility] [place], [address] D-dimer measurement for deep venous thrombosisOrdered By: Sejal Beal on 10-13-2024 D-Dimer Quantitative (PE/DVT) 0.27 FEU/ug/m 0.27-0.49 [facility] Comment on above: NORMAL D-Dimer level (<0.50) indicates no DVT or PE. ECG COMPLETEon 10-13-2024 ECG COMPLETE Ventricular Rate : 1 08 BPM Atrial Rate : 108 BPM P-R Interval : 150 ms QRS Duration : 74 ms Q-T Interval : 332 ms QTC Calculation(Bazett) : 444 ms Calculated P [place] : 50 degrees Calculated R [place] : 45 degrees Calculated T [place] : 40 degrees SINUS TACHYCARDIA OTHERWISE NORMAL ECG NO STEMI Confirmed by MARILEE SORIANO DO ([id number]), news copy editor ANAI GARCIA ([id number]) on 10/14/2024 8:47:34 AM NAME : PROSPER HARRY PID : [id number] : 1990 Gender : Female Race : ORD : [id number] Procedure Date : Oct 13 2024 18:45:10 Edit Date : Oct 14 2024 08:47:39 Diagnosis: SINUS TACHYCARDIA OTHERWISE NORMAL ECG NO STEMI Confirmed by MARILEE SORIANO DO ([id number]), news copy editor ANAI GARCIA ([id number]) on 10/14/2024 8:47:34 AM Test Reason : Chest Pain Location : 1 : ER ED Overread By : MARILEE SORIANO DO Edited By : ANAI GARCIA Referred By : , Acquired by : [id number], [facility] ED PROV NOTEon 10-13-2024 ED PROV NOTE HNO ID: [id number] Author: JONATHAN MCCORMICK DO Service: Emergency Medicine Author Type: Physician Type: ED Provider Notes Filed: 10/14/2024 02:23 Note Text: ED Provider Note Patient Name: Prosper Harry : 1990 SERVICE DATE: 10/13/24 History Patient presents with: Abnormal Ekg: Sent from PCP for abnormal EKG at MD office for an echo. Pt also reports fatigue, weight gain, GERD since Stellara infusion 2 weeks ago. 33-year-old female presenting to the ER today at the request of primary care physician for abnormal EKG recommending echocardiogram. Patient does admit to fatigue, weight gain, GERD send starting Stelara infusion 2 weeks ago. Patient could not get in with GI so went and saw primary care physician who got an EKG and noted a T wave inversion and told her to come to the ER for an echocardiogram. Patient denies any chest pain. She does admit to a little bit of dyspnea with exertion which is why she was being seen with primary but denies any leg swelling, recent travel or surgeries. PAST MEDICAL HISTORY Diagnosis Date Allergic rhinitis Dr. Vick Angioedema of lips Dr. Vick (tongue and lip swelling) Cellulitis and abscess of unspecified site from ruptured appendix (March 2011--resolved) Urticaria Dr. Vick PAST SURGICAL HISTORY Procedure Laterality Date COLONOSCOPY FLX DX W/COLLJ SPEC WHEN PFRMD 04/17/2011 Colonoscopy COLONOSCOPY W/BIOPSY SINGLE/MULTIPLE 04/27/11 DEBRIDEMENT OPEN WOUND 20 SQ CM/< 04/24/11 Debride RLQ wound LAPS COLECTOMY PRTL W/RMVL TERMINAL ILEUM 88 lap right PAST SURGICAL HISTORY OF appendix removal March and May 2011 PAST SURGICAL HISTORY OF 2007 left Acl repair TONSILLECTOMY HX 2005 FAMILY HISTORY Problem Relation Age of Onset Hypertension Father other (depression) Father Diabetes Maternal Grandmother Diabetes Paternal Grandmother Heart Paternal Grandmother Blood Disease Paternal Grandfather Prostate Cancer Paternal Grandfather other (crohn's) Sister Social History Tobacco Use Smoking status: Never Smokeless tobacco: Never Substance and Sexual Activity Alcohol use: No Drug use: No Sexual activity: Not on file ALLERGIES Allergen Reactions Morphine Swelling Review of Systems Constitutional: Positive for fatigue. Respiratory: Positive for shortness of breath. Cardiovascular: Negative for chest pain, palpitations and leg swelling. Allergic/Immunologic: Negative for immunocompromised state. Physical Exam Vitals [10/13/24 1853] BP Pulse Temp Temp src Resp SpO2 Weight Height 140/70 (!) 101 36.7 ?C (98.1 ?F) Temporal 20 99 % 77.1 kg (170 lb) -- Physical Exam Vitals and nursing note reviewed. Constitutional: General: She is not in acute distress. Appearance: She is well-developed. She is not ill-appearing. HENT: Head: Normocephalic and atraumatic. Eyes: Conjunctiva/sclera: Conjunctivae normal. Cardiovascular: Rate and Rhythm: Normal rate and regular rhythm. Pulses: Carotid pulses are 2+ on the right side and 2+ on the left side. Radial pulses are 2+ on the right side and 2+ on the left side. Dorsalis pedis pulses are 2+ on the right side and 2+ on the left side. Posterior tibial pulses are 2+ on the right side and 2+ on the left side. Heart sounds: Normal heart sounds. Pulmonary: Effort: Pulmonary effort is normal. No respiratory distress. Breath sounds: Normal breath sounds. No decreased breath sounds, wheezing, rhonchi or rales. Abdominal: General: There is no distension. Musculoskeletal: General: Normal range of motion. Cervical back: Normal range of motion. Right lower leg: No tenderness. No edema. Left lower leg: No tenderness. No edema. Skin: General: Skin is warm and dry. Capillary Refill: Capillary refill takes less than 2 seconds. Findings: No rash. Neurological: Mental Status: She is alert and oriented to person, place, and time. Psychiatric: Behavior: Behavior normal. Diagnostic Testing ED Labs Ordered and Reviewed COMPREHENSIVE METABOLIC PANEL - Abnormal; Notable for the following components: Result Value Ref Range ALT 56 (*) 7 - 38 U/L Glucose 102 (*) 74 - 99 mg/dL All other components within normal limits MAGNESIUM - Normal BETA HCG, QUANTITATIVE FOR ED - Normal COVID AND INFLUENZA A/B AND RSV PCR, EXPEDITED - Normal Narrative: Reference Range (the expected result in uninfected individuals): Not detected COMPLETE BLOOD COUNT AND DIFFERENTIAL Procedures ED Course / Clinical Impression ED Course as of 10/14/24 022 Jonathan Mccormick's Documentation Fri Oct 13, 2024 2350 EKG without evidence of ST elevation DE Sat Oct 14, 2024221 COVID, influenza, RSV negative 221 Magnesium normal 221 Beta-hCG negative 221 CMP with no major electrolyte abnormalities, normal creatinine, mild elevation in ALT but otherwise normal LFTs 221 CBC without leukocytosis, no anemia, normal platelet count 0 (more content not included)... Normal [facility] ED Triage Noteon 10-13-2024 ED Triage Note HNO ID: [id number] Author: LUDY WYNN MD Service: ? Author Type: Physician Type: ED Triage Notes Filed: 10/13/2024 19:01 Note Text: ED INTAKE NOTE Patient Name: Prosper Harry Service Date: 10/13/24 BRIEF HPI: This is a 33 year old female who presents to the ED with: States recent diagnosis of Crohn's disease seen at primary physician's office today for fatigue and mild shortness of breathafter Stelara infusion 2 weeks ago . Told her EKG was abnormal and present to the ER. Denies chest pain denies fever chills or cough. BRIEF EXAM: NAD INITIAL WORKUP AND DECISION MAKING: Orders Placed This Encounter XR CHEST 2V FRONTAL/LAT CBC + DIFF COMP METABOLIC PANEL (BMP+LFT) MAGNESIUM BLD BETA HCG, QUANTITATIVE FOR ED COVID AND Influenza A/B AND RSV PCR, Expedited ECG COMPLETE EKG Provider examination performed via virtual platform with assistance from bedside clinician. SIGNATURE: Ludy Wynn MD Further triage/room assignment per nursing Limited role in this case performing a screening of the patient in triage Further work up, treatment, follow up on testing ordered from triage, further testing, care, disposition, and final MDM per downstream emergency provider team Please see downstream ED providers's notation for full HnP and MDM Normal [facility] Eosinophil percentageOrdered By: Sejal Beal on 10-13-2024 Eosinophils/100 WBC (Bld) 2.3 % 0-5 [facility] Erythrocyte distribution wid th ratioOrdered By: Sejal Beal on 10-13-2024 Erythrocyte distribution width (RBC) [Ratio] 12.6 % 11.6-14.6 [facility] Erythrocyte distribution wid th standard deviationOrdered By: Sejal Beal on 10-13-2024 Erythrocyte distribution width (RBC) [Entitic vol] 40.8 fL 35.1-43.9 [facility] Hematocrit Auto (Bld) [Volum e fraction]Ordered By: Sejal Beal on 10-13-2024 Hematocrit (Bld) [Volume fraction] 36.4 % Low 37-47 [facility] Hemoglobin measurementOrdere d By: Sejal Beal on 10-13-2024 Hemoglobin (Bld) [Mass/Vol] 12.0 g/dL 12.0-15.0 [facility] Immature granulocytes/100 WB C Auto (Bld)Ordered By: Sejal Beal on 10-13-2024 Immature granulocytes/100 WBC (Bld) 0.600 % 0.0-0.9 [facility] Comment on above: IG% - Immature Granu locytes (promyelocytes, myelocytes and metamyelocytes) > 1% indicates that a LEFT SHIFT is Present. Lymphocytes Auto (Unsp spec) [#/Vol]Ordered By: Sejal Beal on 10-13-2024 Lymphocytes (Bld) [#/Vol] 2.96 10*3/uL 0.83-4.51 [facility] Lymphocytes/100 WBC Auto (Un sp spec)Ordered By: Sejal Beal on 10-13-2024 Lymphocytes/100 WBC (Bld) 37.4 % 19-41 [facility] MCV (mean corpuscular volume ) determinationOrdered By: Sejal Beal on 10-13-2024 MCV (RBC) [Entitic vol] 88.3 fL 81-99 [facility] Magnesium SerPl-mCncon 10-13 Magnesium [Mass/Vol] 2.1 mg/dL Normal 1.7-2.3 [facility] Comment on above: Order Comment: Speci men Type: BLOOD SPECIMEN Ordering Facility: [facility] Address: [address] [place] [address] Performed By: #### 2 4323-8, [facility], 47821-2 #### [facility] CLIA [id number] [address] [place] [address] [place] Mean corpuscular hemoglobin (MCH) determinationOrdered By: Sejal Beal on 10-13-2024 MCH (RBC) [Entitic mass] 29.1 pg 27.0-32.0 [facility] Mean corpuscular hemoglobin concentration (MCHC) determinationOrdered By: Sejal Beal on 10-13-2024 MCHC (RBC) [Mass/Vol] 33.0 g/dL 32-36 [facility] Mean platelet volume determi nationOrdered By: Sejal Beal on 10-13-2024 Platelet mean volume (Bld) [Entitic vol] 10.5 fL 6.2-12.0 [facility] Monocyte percentageOrdered B y: Sejal Beal on 10-13-2024 Monocytes/100 WBC (Bld) 8.7 % 0-10 [facility] Neutrophil percentageOrdered By: Sejal Beal on 10-13-2024 Neutrophils/100 WBC (Bld) 50.4 % 47-70 [facility] Nucleated red blood cell per centageOrdered By: Sejal Beal on 10-13-2024 Nucleated RBC/100 WBC (Bld) [Ratio] 0 % 0-5 [facility] Platelet countOrdered By: Oh Beal on 10-13-2024 Platelets (Bld) [#/Vol] 295 10*3/uL 150-450 [facility] RBC Auto (Bld) [#/Vol]Ordere d By: Sejal Beal on 10-13-2024 RBC (Bld) [#/Vol] 4.12 10*6/uL Low 4.2-5.4 [facility] White blood cell (WBC) count Ordered By: Sejal Beal on 10-13-2024 WBC (Bld) [#/Vol] 7.9 10*3/uL 4.4-11.0 [facility] XR CHEST 2V FRONTAL/LATon XR CHEST 2V FRONTAL/LAT * * *Final Repor t* * * DATE OF EXAM: Oct 13 2024 7:22PM MDX 5291 - XR CHEST 2V FRONTAL/LAT / PROCEDURE REASON: Shortness of breath * * * * Physician Interpretation * * * * EXAMINATION: CHEST RADIOGRAPH (2 VIEW FRONTAL and LATERAL) CLINICAL HISTORY: Shortness of breath MQ: XC2_6 EXAM DATE/TIME: 10/13/2024 7:22 PM COMPARISON: No relevant prior studies available. RESULT: Lines, tubes, and devices: None. Lungs and pleura: No consolidation. No lung mass. No pleural effusion. No pneumothorax. Cardiomediastinal silhouette: Normal cardiomediastinal silhouette. Bones and soft tissues: Unremarkable. IMPRESSION: No acute radiographic abnormality. [employer]ocket [employer] Operator: JOSELUIS Transcribe Date/Time: Oct 13 2024 7:42P Dictated by : INDER DECKER, DO This examination was interpreted and the report reviewed and electronically signed by: INDER DECKER DO on Oct 13 2024 7:42PM EST [id number] Normal [facility] Absolute neutrophil countOrd ered By: Ambreen Lyn on 09-20-2024 Neutrophils (Bld) [#/Vol] 4.9 10*3/uL 2.0-7.7 [facility] Albumin to globulin ratioOrd ered By: Ambreen Lny on 09-20-2024 Albumin/Globulin [Mass ratio] 1.3 {ratio} 0.9-2.4 [facility] Basophil percentageOrdered B y: Ambreen Lyn on 09-20-2024 Basophils/100 WBC (Bld) 0.7 % 0-1 [facility] Bilirubin, totalOrdered By: Ambreen Lyn on 09-20-2024 Bilirubin [Mass/Vol] 0.20 mg/dL 0.20-1.[address] [facility] Comment on above: For patients on eltr ombopag therapy, use of Dimension [place] TBIL is not recommended. Blood urea nitrogen (BUN)/cr eatinine ratioOrdered By: Ambreen Lyn on 09-20-2024 Urea nitrogen/Creatinine [Mass ratio] 12.8 mg/mg 10-20 [facility] CBC W/Diff, Automatedon 09-10 Absolute Lymph 2.77 X10 3/uL Normal 0.83-4.51 [facility] Comment on above: Order Comment: PER Mary Ellen CRAWFORD COMMENT-ESR Order Date: 09/19/24 Order Info: 0184-1 - CBCD Performed By: #### L 501.5200, L506.0250, L100.0100, L503.0105, L500.4050 #### [facility] [address] [place], [address] Absolute Neut 4.9 X10 3/uL Normal 2.0-7.7 [facility] Comment on above: Order Comment: PER I NTERFACE COMMENT-ESR Order Date: 09/19/24 Order Info: 0184-1 - CBCD Performed By: #### L 501.5200, L506.0250, L100.0100, L503.0105, L500.4050 #### [facility] [address] [place], [address] Basophils/100 WBC (Bld) 0.7 % Normal 0-1 [facility] Comment on above: Order Comment: PER I VINCEERJAYDEN COMMENT-ESR Order Date: 09/19/24 Order Info: 018- - CBCD Performed By: #### L 501.5200, L506.0250, L100.0100, L503.0105, L500.4050 #### [facility] [address] [place], [address] Eosinophils/100 WBC (Bld) 1.3 % Normal 0-5 [facility] Comment on above: Order Comment: PER I VINCEERJAYDEN COMMENT-ESR Order Date: 09/19/24 Order Info: 01801-09 - CBCD Performed By: #### L 501.5200, L506.0250, L100.0100, L503.0105, L500.4050 #### [facility] [address] [place], [address] Erythrocyte distribution width (RBC) [Ratio] 11.9 % Normal 11.6-14.6 [facility] Comment on above: Order Comment: PER Mary Ellen CLARKEERJAYDEN COMMENT-ESR Order Date: 09/19/24 Order Info: 018- - CBCD Performed By: #### L 501.5200, L506.0250, L100.0100, L503.0105, L500.4050 #### [facility] [address] [place], [address] Hematocrit (Bld) [Volume fraction] 35.4 % Low 37-47 [facility] Comment on above: Order Comment: PER I NTERJAYDEN COMMENT-ESR Order Date: 09/19/24 Order Info: 018- - CBCD Performed By: #### L 501.5200, L506.0250, L100.0100, L503.0105, L500.4050 #### [facility] [address] [place], [address] Hemoglobin (Bld) [Mass/Vol] 11.8 g/dL Low 12.0-15.0 [facility] Comment on above: Order Comment: PER Mary Ellen CRAWFORD COMMENT-ESR Order Date: 09/19/24 Order Info: 01801-09 - CBCD Performed By: #### L 501.5200, L506.0250, L100.0100, L503.0105, L500.4050 #### [facility] [address] [place], [address] IG% 0.400 Normal 0.0-0.9 [facility] Comment on above: Order Comment: PER Mary Ellen CLARKEERJAYDEN COMMENT-ESR Order Date: 09/19/24 Order Info: 01801-09 - CBCD Result Comment: IG% - Immature Granulocytes (promyelocytes, myelocytes and metamyelocytes) > 1% indicates that a LEFT SHIFT is Present. Performed By: #### L 501.5200, L506.0250, L100.0100, L503.0105, L500.4050 #### [facility] [address] [place], [address] Lymphocytes/100 WBC (Bld) 32.5 % Normal 19-41 [facility] Comment on above: Order Comment: PER Mary Ellen CRAWFORD COMMENT-ESR Order Date: 09/19/24 Order Info: 01801-09 - CBCD Performed By: #### L 501.5200, L506.0250, L100.0100, L503.0105, L500.4050 #### [facility] [address] [place], [address] MCH (RBC) [Entitic mass] 29.1 pg Normal 27.0-32.0 [facility] Comment on above: Order Comment: PER Mary Ellen CLARKEERJAYDEN COMMENT-ESR Order Date: 09/19/24 Order Info: 01801-09 - CBCD Performed By: #### L 501.5200, L506.0250, L100.0100, L503.0105, L500.4050 #### [facility] [address] [place], [address] MCHC (RBC) [Mass/Vol] 33.3 g/dL Normal 32-36 [facility] Comment on above: Order Comment: PER I NTERJAYDEN COMMENT-ESR Order Date: 09/19/24 Order Info: 0184-1 - CBCD Performed By: #### L 501.5200, L506.0250, L100.0100, L503.0105, L500.4050 #### [facility] [address] [place], [address] MCV (RBC) [Entitic vol] 87.4 fL Normal 81-99 [facility] Comment on above: Order Comment: PER I VINCEERJAYDEN COMMENT-ESR Order Date: 09/19/24 Order Info: 0184-1 - CBCD Performed By: #### L 501.5200, L506.0250, L100.0100, L503.0105, L500.4050 #### [facility] [address] [place], [address] Monocytes/100 WBC (Bld) 7.9 % Normal 0-10 [facility] Comment on above: Order Comment: PER I VINCEERJAYDEN COMMENT-ESR Order Date: 09/19/24 Order Info: 0184-1 - CBCD Performed By: #### L 501.5200, L506.0250, L100.0100, L503.0105, L500.4050 #### [facility] [address] [place], [address] Neutrophils/100 WBC (Bld) 57.2 % Normal 47-70 [facility] Comment on above: Order Comment: PER I VINCEERJAYDEN COMMENT-ESR Order Date: 09/19/24 Order Info: 0184-1 - CBCD Performed By: #### L 501.5200, L506.0250, L100.0100, L503.0105, L500.4050 #### [facility] [address] [place], [address] Nucleated RBC (Bld) [#/Vol] 0 10*3/uL Normal 0-5 [facility] Comment on above: Order Comment: PER I VINCEERJAYDEN COMMENT-ESR Order Date: 09/19/24 Order Info: 0184-1 - CBCD Performed By: #### L 501.5200, L506.0250, L100.0100, L503.0105, L500.4050 #### [facility] [address] [place], [address] Platelet mean volume (Bld) [Entitic vol] 10.5 fL Normal 6.2-12.0 [facility] Comment on above: Order Comment: PER I VINCEERJAYDEN COMMENT-ESR Order Date: 09/19/24 Order Info: 0184- - CBCD Performed By: #### L 501.5200, L506.0250, L100.0100, L503.0105, L500.4050 #### [facility] [address] [place], [address] Platelets (Bld) [#/Vol] 324 10*3/uL Normal 150-450 [facility] Comment on above: Order Comment: PER I VINCEERJAYDEN COMMENT-ESR Order Date: 09/19/24 Order Info: 0184-1 - CBCD Performed By: #### L 501.5200, L506.0250, L100.0100, L503.0105, L500.4050 #### [facility] [address] [place], [address] RBC (Bld) [#/Vol] 4.05 10*6/uL Low 4.2-5.4 [facility] Comment on above: Order Comment: PER I VINCEERJAYDEN COMMENT-ESR Order Date: 09/19/24 Order Info: 0184-1 - CBCD Performed By: #### L 501.5200, L506.0250, L100.0100, L503.0105, L500.4050 #### [facility] [address] [place], [address] RDW SD 38.4 fl Normal 35.1-43.9 [facility] Comment on above: Order Comment: PER I NTERFACE COMMENT-ESR Order Date: 09/19/24 Order Info: 018- - CBCD Performed By: #### L 501.5200, L506.0250, L100.0100, L503.0105, L500.4050 #### [facility] [address] [place], [address] WBC (Bld) [#/Vol] 8.5 10*3/uL Normal 4.4-11.0 [facility] Comment on above: Order Comment: PER I NTERFACE COMMENT-ESR Order Date: 09/19/24 Order Info: 01801-09 - CBCD Performed By: #### L 501.5200, L506.0250, L100.0100, L503.0105, L500.4050 #### [facility] [address] [place], [address] Carbon dioxide measurementOr dered By: Ambreen Lyn on 09-20-2024 CO2 [Moles/Vol] 29.0 mmol/L 21.0-32.0 [facility] Chloride measurementOrdered By: Ambreen Lyn on 09-20-2024 Chloride [Moles/Vol] 106 mmol/L 98-[address] [facility] Comprehensive Metabolic Prof ilon 09-20-2024 Albumin [Mass/Vol] 4.3 g/dL Normal 3.2-5.0 [facility] Comment on above: Order Comment: DR. Lesli TILLEY AND DIANNE ORDERED CMP, CBCD Order Date: 07/07/24 Order Info: 0786-1 - CMP Performed By: #### L 100.0100, L500.4050 #### [facility] [address] [place], [address] Albumin/Globulin [Mass ratio] 1.3 {ratio} Normal 0.9-2.4 [facility] Comment on above: Order Comment: DR. Lesli ALBRIGHT ORDERED CMP, CBCD Order Date: 07/07/24 Order Info: 07- - CMP Performed By: #### L 100.0100, L500.4050 #### [facility] [address] [place], [address] ALK P 61 U/L Normal 45-117 [facility] Comment on above: Order Comment: DR. Lesli ALBRIGHT ORDERED CMP, CBCD Order Date: 07/07/24 Order Info: 0786- - CMP Performed By: #### L 100.0100, L500.4050 #### [facility] [address] [place], [address] ALT [Catalytic activity/Vol] 32 U/L Normal 13-56 [facility] Comment on above: Order Comment: DR. Lesli ALBRIGHT ORDERED CMP, CBCD Order Date: 07/07/24 Order Info: 0786 - CMP Performed By: #### L 100.0100, L500.4050 #### [facility] [address] [place], [address] AST [Catalytic activity/Vol] 13 U/L Low 15-37 [facility] Comment on above: Order Comment: DR. Lesli ALBRIGHT ORDERED CMP, CBCD Order Date: 07/07/24 Order Info: 0786- - CMP Performed By: #### L 100.0100, L500.4050 #### [facility] [address] [place], [address] Bilirubin [Mass/Vol] 0.20 mg/dL Normal 0.20-1.[address] [facility] Comment on above: Order Comment: DR. Lesli ALBRIGHT ORDERED CMP, CBCD Order Date: 07/07/24 Order Info: 0786-1 - CMP Result Comment: For patients on eltrombopag therapy, use of Dimension [place] TBIL is not recommended. Performed By: #### L 100.0100, L500.4050 #### [facility] [address] [place], [address] BUN/CRE 12.8 RATIO Normal 10-20 [facility] Comment on above: Order Comment: DR. Lesli ALBRIGHT ORDERED CMP, CBCD Order Date: 07/07/24 Order Info: 07-1 - CMP Performed By: #### L 100.0100, L500.4050 #### [facility] [address] [place], [address] CA,Total 9.3 mg/dL Normal 8.5-10.1 [facility] Comment on above: Order Comment: DR. Lesli ALBRIGHT ORDERED CMP, CBCD Order Date: 07/07/24 Order Info: 0786- - CMP Performed By: #### L 100.0100, L500.4050 #### [facility] [address] [place], [address] Chloride [Moles/Vol] 106 mmol/L Normal 98-[address] [facility] Comment on above: Order Comment: DR. Lesli ALBRIGHT ORDERED CMP, CBCD Order Date: 07/07/24 Order Info: 0786- - CMP Performed By: #### L 100.0100, L500.4050 #### [facility] [address] [place], [address] CO2 [Moles/Vol] 29.0 mmol/L Normal 21.0-32.0 [facility] Comment on above: Order Comment: DR. Lesli ALBRIGHT ORDERED CMP, CBCD Order Date: 07/07/24 Order Info: 0786-1 - CMP Performed By: #### L 100.0100, L500.4050 #### [facility] [address] [place], [address] Creatinine [Mass/Vol] 0.78 mg/dL Normal 0.55-1.02 [facility] Comment on above: Order Comment: DR. Lesli ALBRIGHT ORDERED CMP, CBCD Order Date: 07/07/24 Order Info: 0786-1 - CMP Result Comment: The validity of the calculated GFR GFRAA in patients over 70 years has not been determined. Clinical correlation is essential. Performed By: #### L 100.0100, L500.4050 #### [facility] [address] [place], [address] EST GFR - AA 109 mL/min Normal >60 [facility] Comment on above: Order Comment: DR. Lesli ALBRIGHT ORDERED CMP, CBCD Order Date: 07/07/24 Order Info: 0786-1 - CMP Result Comment: Afri can Maldivian GFR Calc Performed By: #### L 100.0100, L500.4050 #### [facility] [address] [place], [address] GAP 3 Low 5-15 [facility] Comment on above: Order Comment: DR. Lesli ALBRIGHT ORDERED CMP, CBCD Order Date: 07/07/24 Order Info: 0786-1 - CMP Performed By: #### L 100.0100, L500.4050 #### [facility] [address] [place], [address] GFR/1.73 sq M.predicted among non-blacks MDRD (S/P/Bld) [Vol rate/Area] 90 mL/min/{1.73_m2} Normal >60 [facility] Comment on above: Order Comment: DR. Lesli ALBRIGHT ORDERED CMP, CBCD Order Date: 07/07/24 Order Info: 0786-1 - CMP Result Comment: Non- GFR Calc Performed By: #### L 100.0100, L500.4050 #### [facility] [address] [place], [address] Globulin (S) [Mass/Vol] 3.2 g/dL Normal 2.2-4.2 [facility] Comment on above: Order Comment: DR. Lesli ALBRIGHT ORDERED CMP, CBCD Order Date: 07/07/24 Order Info: 0786-1 - CMP Performed By: #### L 100.0100, L500.4050 #### [facility] [address] [place], [address] Glucose [Mass/Vol] 100 mg/dL Normal 74-106 [facility] Comment on above: Order Comment: DR. Lesli ALBRIGHT ORDERED CMP, CBCD Order Date: 07/07/24 Order Info: 07-1 - CMP Result Comment: Fast ing Glucose result from 100 to 125 mg/dL suggests IMPAIRED HOMEOSTASIS per A.D.A. criteria. Performed By: #### L 100.0100, L500.4050 #### [facility] [address] [place], [address] Potassium [Moles/Vol] 3.9 mmol/L Normal 3.5-5.1 [facility] Comment on above: Order Comment: DR. Lesli ALBRIGHT ORDERED CMP, CBCD Order Date: 07/07/24 Order Info: 0786- - CMP Performed By: #### L 100.0100, L500.4050 #### [facility] [address] [place], [address] Sodium [Moles/Vol] 138 mmol/L Normal 136-145 [facility] Comment on above: Order Comment: DR. Lesli ALBRIGHT ORDERED CMP, CBCD Order Date: 07/07/24 Order Info: 0786-1 - CMP Performed By: #### L 100.0100, L500.4050 #### [facility] [address] [place], [address] T PROT 7.5 g/dL Normal 6.4-8.2 [facility] Comment on above: Order Comment: DR. Lesli ALBRIGHT ORDERED CMP, CBCD Order Date: 07/07/24 Order Info: 0786-1 - CMP Performed By: #### L 100.0100, L500.4050 #### [facility] [address] [place], [place], [address] Urea nitrogen [Mass/Vol] 10 mg/dL Normal 7-18 [facility] Comment on above: Order Comment: DR. Lesli TILLEY AND DIANNE ORDERED CMP, CBCD Order Date: 07/07/24 Order Info: 0786-1 - CMP Performed By: #### L 100.0100, L500.4050 #### [facility] [address] [place], [address] Eosinophil percentageOrdered By: Ambreen Lyn on 09-20-2024 Eosinophils/100 WBC (Bld) 1.3 % 0-5 [facility] Erythrocyte Sed Rateon 09-20 SED RATE 1 mm/hr Normal 0-30 [facility] Comment on above: Order Comment: [id number] STERLARA LEVELS RED FRZ Performed By: #### L 501.6710, L3410.9998, L500.4050, L100.0100, L101.9900, L504.2610 #### [facility] [address] [place], [place], [id number] Erythrocyte distribution wid th ratioOrdered By: Ambreen Lyn on 09-20-2024 Erythrocyte distribution width (RBC) [Ratio] 11.9 % 11.6-14.6 [facility] Erythrocyte distribution wid th standard deviationOrdered By: Ambreen Lyn on 09-20-2024 Erythrocyte distribution width (RBC) [Entitic vol] 38.4 fL 35.1-43.9 [facility] Erythrocyte sedimentation ra teOrdered By: Ambreen Lyn on 09-20-2024 ESR (Bld) [Velocity] 1 mm/h 0-[address] [facility] Estimated glomerular filtrat ion rate (GFR) AmericanOrdered By: Ambreen Lyn on 09-20-2024 Estimated GFR (MDRD) Amer 109 mL/min >60 [facility] Comment on above: GFR Calc Folates, (Folic Acid)on 09-10 FOLATES 8.40 ng/mL Normal 3.1-55.4 [facility] Comment on above: Order Comment: DR. Lesli ALBRIGHT ORDERED CMP, CBCD Order Date: 07/07/24 Order Info: 0786-1 - CMP Performed By: #### L 100.0100, L500.4050 #### [facility] [address] [place], [address] Folic acid measurementOrdere d By: Ambreen Lyn on 09-20-2024 Folate 8.40 ng/mL 3.1-55.4 [facility] Glomerular filtration rate ( GFR) estimationOrdered By: Ambreen Lyn on 09-20-2024 Estimated GFR (MDRD) Non-Af Amer 90 mL/min >60 [facility] Comment on above: Non- GFR Calc Glucose measurementOrdered B y: Ambreen Lyn on 09-20-2024 Glucose [Mass/Vol] 100 mg/dL 74-106 [facility] Comment on above: Fasting Glucose resu lt from 100 to 125 mg/dL suggests IMPAIRED HOMEOSTASIS per A.D.A. criteria. Hematocrit Auto (Bld) [Volum e fraction]Ordered By: Ambreen Lyn on 09-20-2024 Hematocrit (Bld) [Volume fraction] 35.4 % Low 37-47 [facility] Hemoglobin measurementOrdere d By: Ambreen Lyn on 09-20-2024 Hemoglobin (Bld) [Mass/Vol] 11.8 g/dL Low 12.0-15.0 [facility] Immature granulocytes/100 WB C Auto (Bld)Ordered By: Ambreen Lyn on 09-20-2024 Immature granulocytes/100 WBC (Bld) 0.400 % 0.0-0.9 [facility] Comment on above: IG% - Immature Granu locytes (promyelocytes, myelocytes and metamyelocytes) > 1% indicates that a LEFT SHIFT is Present. Laboratory - Chemistry and C hemistry - challengeOrdered By: Ambreen Lyn on 09-20-2024 AST [Catalytic activity/Vol] 13 U/L Low 15-37 [facility] Lymphocytes Auto (Unsp spec) [#/Vol]Ordered By: Ambreen Lyn on 09-20-2024 Lymphocytes (Bld) [#/Vol] 2.77 10*3/uL 0.83-4.51 [facility] Lymphocytes/100 WBC Auto (Un sp spec)Ordered By: Ambreen Lyn on 09-20-2024 Lymphocytes/100 WBC (Bld) 32.5 % 19-41 [facility] MCV (mean corpuscular volume ) determinationOrdered By: Ambreen Lyn on 09-20-2024 MCV (RBC) [Entitic vol] 87.4 fL 81-99 [facility] Magnesiumon 09-20-2024 Magnesium [Mass/Vol] 2.3 mg/dL Normal 1.6-2.[address] [facility] Comment on above: Order Comment: DR. Lesli TILLEY AND DIANNE ORDERED CMP, CBCD Order Date: 07/07/24 Order Info: 0786-1 - CMP Performed By: #### L 100.0100, L500.4050 #### [facility] [address] [place] [address], [id number] Magnesium measurementOrdered By: Ambreen Lyn on 09-20-2024 Magnesium [Mass/Vol] 2.3 mg/dL 1.6-2.[address] [facility] Mean corpuscular hemoglobin (MCH) determinationOrdered By: Ambreen Lyn on 09-20-2024 MCH (RBC) [Entitic mass] 29.1 pg 27.0-32.0 [facility] Mean corpuscular hemoglobin concentration (MCHC) determinationOrdered By: Ambreen Lyn on 09-20-2024 MCHC (RBC) [Mass/Vol] 33.3 g/dL 32-36 [facility] Mean platelet volume determi nationOrdered By: Ambreen Lyn on 09-20-2024 Platelet mean volume (Bld) [Entitic vol] 10.5 fL 6.2-12.0 [facility] Monocyte percentageOrdered B y: Ambreen Lyn on 09-20-2024 Monocytes/100 WBC (Bld) 7.9 % 0-10 [facility] Neutrophil percentageOrdered By: Ambreen Lyn on 09-20-2024 Neutrophils/100 WBC (Bld) 57.2 % 47-70 [facility] Nucleated red blood cell per centageOrdered By: Ambreen Lyn on 09-20-2024 Nucleated RBC/100 WBC (Bld) [Ratio] 0 % 0-5 [facility] Platelet countOrdered By: Joaquim Lyn on 09-20-2024 Platelets (Bld) [#/Vol] 324 10*3/uL 150-450 [facility] Potassium measurementOrdered By: Ambreen Lyn on 09-20-2024 Potassium [Moles/Vol] 3.9 mmol/L 3.5-5.1 [facility] RBC Auto (Bld) [#/Vol]Ordere d By: Ambreen Lyn on 09-20-2024 RBC (Bld) [#/Vol] 4.05 10*6/uL Low 4.2-5.4 [facility] Serum anion gap measurementO rdered By: Ambreen Lyn on 09-20-2024 Anion gap [Moles/Vol] 3 mmol/L Low 5-15 [facility] Serum globulin measurementOr dered By: Ambreen Lyn on 09-20-2024 Globulin (S) [Mass/Vol] 3.2 g/dL 2.2-4.2 [facility] Serum or plasma alanine lynn otransferase (ALT) measurementOrdered By: Ambreen Lyn on 09-20-2024 ALT [Catalytic activity/Vol] 32 U/L 13-56 [facility] Serum or plasma albumin nadine urement (mass/volume)Ordered By: Ambreen Lyn on 09-20-2024 Albumin [Mass/Vol] 4.3 g/dL 3.2-5.0 [facility] Serum or plasma alkaline rosa sphatase measurementOrdered By: Ambreen Lyn on 09-20-2024 ALP [Catalytic activity/Vol] 61 U/L 45-117 [facility] Serum or plasma calcium nadine urement (mass/volume)Ordered By: Ambreen Lyn on 09-20-2024 Calcium [Mass/Vol] 9.3 mg/dL 8.5-10.1 [facility] Serum or plasma creatinine m easurement (mass/volume)Ordered By: Ambreen Lyn on 09-20-2024 Creatinine [Mass/Vol] 0.78 mg/dL 0.55-1.02 [facility] Comment on above: The validity of the calculated GFR & GFRAA in patients over 70 years has not been determined. Clinical correlation is essential. Serum or plasma urea nitroge n measurement (mass/volume)Ordered By: Ambreen Lyn on 09-20-2024 Urea nitrogen [Mass/Vol] 10 mg/dL 7-18 [facility] Sodium levelOrdered By: Ambreen Lyn on 09-20-2024 Sodium [Moles/Vol] 138 mmol/L 136-145 [facility] Total proteinOrdered By: Mone Lyn on 09-20-2024 Protein [Mass/Vol] 7.5 g/dL 6.4-8.2 [facility] Vitamin B12on 09-20-2024 Cobalamin (Vitamin B12) [Mass/Vol] 1472 pg/mL High 211-911 [facility] Comment on above: Order Comment: BRAYAN CLARKEERJAYDEN COMMENT-ESR Order Date: 09/19/24 Order Info: 2131-9 - B12 Performed By: #### L 501.5200, L506.0250, L100.0100, L503.0105, L500.4050 #### [facility] [address] [facility] [id number] Vitamin B12 measurementOrder ed By: Ambreen Lyn on 09-20-2024 Cobalamin (Vitamin B12) [Mass/Vol] 1472 pg/mL High 211-911 [facility] White blood cell (WBC) count Ordered By: Ambreen Lyn on 09-20-2024 WBC (Bld) [#/Vol] 8.5 10*3/uL 4.4-11.0 [facility] Celiac Disease Profileon ENDOMYSIAL IGA Negative Normal Negative [facility] Comment on above: Order Comment: [id number] Performed By: #### L 501.6710, L3410.9998, L500.4050, L100.0100, L101.9900, L504.2610 #### [facility] [address] [place], [place], [id number] tTG IGA <2 Normal 0-3 [facility] Comment on above: Order Comment: 64721 4 Result Comment: Nega tive 0 - 3 Weak Positive 4 - 10 Positive >10 Tissue Transglutaminase (tTG) has been identified as the endomysial antigen. Studies have demonstr- ated that endomysial IgA antibodies have over 99% specificity for gluten sensitive enteropathy. Performed By: #### L 501.6710, L3410.9998, L500.4050, L100.0100, L101.9900, L504.2610 #### [facility] [address] [place], [place], [id number] tTG IGG <2 Normal 0-5 [facility] Comment on above: Order Comment: 68634 4 Result Comment: Nega tive 0 - 5 Weak Positive 6 - 9 Positive >9 Performed By: #### L 501.6710, L3410.9998, L500.4050, L100.0100, L101.9900, L504.2610 #### [facility] [address] [place], [address] Hepatitis Panel Acuteon 12-1 COMMENT Comment Normal . [facility] Comment on above: Order Comment: 11548 4 Result Comment: Not infected with HCV unless early or acute infection is suspected (which may be delayed in an immunocompromised individual), or other evidence exists to indicate HCV infection. Performed at: [address] [id number] [employer]: Cem Howell PhD, Phone: [phone] Performed By: #### L 501.6710, L3410.9998, L500.4050, L100.0100, L101.9900, L504.2610 #### [facility] [address] [place], [place], [id number] HEP B CORE,IgM Negative Normal Negative [facility] Comment on above: Order Comment: 04085 4 Performed By: #### L 501.6710, L3410.9998, L500.4050, L100.0100, L101.9900, L504.2610 #### [facility] [address] [place], [address] HEP B SURF AG Negative Normal Negative [facility] Comment on above: Order Comment: [id number] 4 Performed By: #### L 501.6710, L3410.9998, L500.4050, L100.0100, L101.9900, L504.2610 #### [facility] [address] [place], [place], [id number] HEP C VIRUS AB Non-Reactive Normal Non Reactive [facility] Comment on above: Order Comment: 13144 4 Performed By: #### L 501.6710, L3410.9998, L500.4050, L100.0100, L101.9900, L504.2610 #### [facility] [address] [place], [address] HEPATITIS A-IgM Negative Normal Negative [facility] Comment on above: Order Comment: [id number] 4 Result Comment: A ne gative anti-HAV IgM result suggests no recent or current HAV infection. Performed By: #### L 501.6710, L3410.9998, L500.4050, L100.0100, L101.9900, L504.2610 #### [facility] [address] [place], [place], [id number] INGRID + Protein Elect, Serumon 09-19-2024 Albumin [Mass/Vol] 4.0 g/dL Normal 2.9-4.4 [facility] Comment on above: Order Comment: [id number] 4 Performed By: #### L 501.6710, L3410.9998, L500.4050, L100.0100, L101.9900, L504.2610 #### [facility] [address] [place], [address] Albumin/Globulin [Mass ratio] 1.2 {ratio} Normal 0.7-1.7 [facility] Comment on above: Order Comment: 14745 4 Performed By: #### L 501.6710, L3410.9998, L500.4050, L100.0100, L101.9900, L504.2610 #### [facility] [address] [place], [address] LOPKQ-3-VKIH 0.2 g/dL Normal 0.0-0.4 [facility] Comment on above: Order Comment: 09494 4 Performed By: #### L 501.6710, L3410.9998, L500.4050, L100.0100, L101.9900, L504.2610 #### [facility] [address] [place], [address] CHPBV-9-JQJU 0.9 g/dL Normal 0.4-1.0 [facility] Comment on above: Order Comment: 35197 4 Performed By: #### L 501.6710, L3410.9998, L500.4050, L100.0100, L101.9900, L504.2610 #### [facility] [address] [place], [address] BETA GLOBULIN 1.2 g/dL Normal 0.7-1.3 [facility] Comment on above: Order Comment: 80436 4 Performed By: #### L 501.6710, L3410.9998, L500.4050, L100.0100, L101.9900, L504.2610 #### [facility] [address] [place], [address] GAMMA GLOBULIN 1.0 g/dL Normal 0.4-1.8 [facility] Comment on above: Order Comment: 26101 4 Performed By: #### L 501.6710, L3410.9998, L500.4050, L100.0100, L101.9900, L504.2610 #### [facility] [address] [place], [address] Globulin (S) [Mass/Vol] 3.4 g/dL Normal 2.2-3.9 [facility] Comment on above: Order Comment: [id number] 4 Performed By: #### L 501.6710, L3410.9998, L500.4050, L100.0100, L101.9900, L504.2610 #### [facility] [address] [place], [address] INGRID RESULT,S Comment Normal . [facility] Comment on above: Order Comment: 94699 4 Result Comment: No m onoclonality detected. Performed By: #### L 501.6710, L3410.9998, L500.4050, L100.0100, L101.9900, L504.2610 #### [facility] [address] [place], [address] IMMUNOGLOB A QN 57 mg/dL Low 87-352 [facility] Comment on above: Order Comment: 68186 4 Performed By: #### L 501.6710, L3410.9998, L500.4050, L100.0100, L101.9900, L504.2610 #### [facility] [address] [place], [address] IMMUNOGLOB G QN 1003 mg/dL Normal 586-1602 [facility] Comment on above: Order Comment: 73816 4 Performed By: #### L 501.6710, L3410.9998, L500.4050, L100.0100, L101.9900, L504.2610 #### [facility] [address] [place], [address] IMMUNOGLOB M QN 130 mg/dL Normal 26-217 [facility] Comment on above: Order Comment: 09951 4 Performed By: #### L 501.6710, L3410.9998, L500.4050, L100.0100, L101.9900, L504.2610 #### [facility] [address] [place], [address] M-Robbie Not Observed Normal Not Observed [facility] Comment on above: Order Comment: 10780 4 Performed By: #### L 501.6710, L3410.9998, L500.4050, L100.0100, L101.9900, L504.2610 #### [facility] [address] [place], [address] NOTE: Comment Normal . [facility] Comment on above: Order Comment: 35435 4 Result Comment: Prot ein electrophoresis scan will follow via computer, mail, or director global strategic publisher sales delivery. Performed By: #### L 501.6710, L3410.9998, L500.4050, L100.0100, L101.9900, L504.2610 #### [facility] [address] [place], [address] Protein [Mass/Vol] 7.4 g/dL Normal 6.0-8.5 [facility] Comment on above: Order Comment: 38901 4 Performed By: #### L 501.6710, L3410.9998, L500.4050, L100.0100, L101.9900, L504.2610 #### [facility] [address] [place], [address] Quantiferon TB-Gold+on 09-19 QFT MITOGEN ALVERTO > 10.00 Normal . [facility] Comment on above: Order Comment: 18637 4 Performed By: #### L 501.6710, L3410.9998, L500.4050, L100.0100, L101.9900, L504.2610 #### [facility] [address] [place], [place], [id number] (356 QFT NIL VALUE 0.02 IU/mL Normal . [facility] Comment on above: Order Comment: 32220 4 Performed By: #### L 501.6710, L3410.9998, L500.4050, L100.0100, L101.9900, L504.2610 #### [facility] [address] [place], [place], [address] QFT TB GOLD+ Comment Normal . [facility] Comment on above: Order Comment: 16014 4 Result Comment: Neel tiFERON-TB Gold Plus is a qualitative indirect test for M tuberculosis infection (including disease) and is intended for use in conjunction with risk assessment, radiography, and other medical and diagnostic evaluations. The QuantiFERON-TB Gold Plus result is determined by subtracting the Nil value from either TB antigen (Ag) value. The Mitogen tube serves as a control for the test. Performed By: #### L 501.6710, L3410.9998, L500.4050, L100.0100, L101.9900, L504.2610 #### [facility] [address] [place], [address] QFT TB POS CRIT Negative Normal Negative [facility] Comment on above: Order Comment: 18626 4 Result Comment: No r esponse to M tuberculosis antigens detected. Infection with M tuberculosis is unlikely, but high risk individuals should be considered for additional testing (ATS/IDSA/CDC Clinical Practice Guidelines, 2017). The reference range is an Antigen minus Nil result of <0.35 IU/mL. The specimen received for QuantiFERON testing was incubated by the ordering institution. Specific procedures outlined in our Directory of Services and in the package insert for the QuantiFERON Gold (In Tube) test must be followed to enable for proper stimulation of cells for the production of interferon gamma. Chemiluminescence immunoassay methodology Performed By: #### L 501.6710, L3410.9998, L500.4050, L100.0100, L101.9900, L504.2610 #### [facility] [address] [place], [place], [phone] (560) QFT TB1+ AG ALVERTO 0.02 IU/mL Normal . [facility] Comment on above: Order Comment: 96892 4 Performed By: #### L 501.6710, L3410.9998, L500.4050, L100.0100, L101.9900, L504.2610 #### [facility] [address] [place], [place], [address] QFT TB2+ AG ALVERTO 0 IU/mL Normal . [facility] Comment on above: Order Comment: 67465 4 Performed By: #### L 501.6710, L3410.9998, L500.4050, L100.0100, L101.9900, L504.2610 #### [facility] [address] [place], [address] Absolute neutrophil countOrd ered By: Samuel Nunez on 09-15-2024 Neutrophils (Bld) [#/Vol] 5.3 10*3/uL 2.0-7.7 [facility] Addendum DocumentOrdered By: Samuel Nunez on 09-15-2024 Serum Immunofixation Comments Comment . [facility] Comment on above: Protein electrophore sis scan will follow via computer,mail, or director global strategic publisher sales delivery. Albumin Elph [Mass/Vol]Order ed By: Samuel Nunez on 09-15-2024 Albumin [Mass/Vol] 4.0 g/dL 2.9-4.4 [facility] Albumin to globulin ratioOrd ered By: Samuel Nunez on 09-15-2024 Albumin/Globulin [Mass ratio] 1.2 {ratio} 0.9-2.4 [facility] Alpha 1 globulin Elph [Mass/ Vol]Ordered By: Samuel Nunez on 09-15-2024 Ipejr-5-Capccsrxr (INGRID) 0.2 g/dL 0.0-0.4 [facility] Gwljj-2-Dczrjtejk (INGRID) 0.9 g/dL 0.4-1.0 [facility] Basophil percentageOrdered B y: Samuel Nunez on 09-15-2024 Basophils/100 WBC (Bld) 0.8 % 0-1 [facility] Beta globulin Elph [Mass/Vol ]Ordered By: Samuel Nunez on 09-15-2024 Beta-Globulins (INGRID) 1.2 g/dL 0.7-1.[address] [facility] Bilirubin, totalOrdered By: Samuel Nunez on 09-15-2024 Bilirubin [Mass/Vol] 0.50 mg/dL 0.20-1.[address] [facility] Comment on above: For patients on eltr ombopag therapy, use of Dimension [place] TBIL is not recommended. Blood urea nitrogen (BUN)/cr eatinine ratioOrdered By: Samuel Nunez on 09-15-2024 Urea nitrogen/Creatinine [Mass ratio] 9.8 mg/mg Low 10-20 [facility] C-reactive protein measureme nt by high sensitivity methodOrdered By: Samuel Nunez on 09-15-2024 C-Reactive Protein Extended Range 3.62 mg/L High 0.0-3.0 [facility] Comment on above: C-Reactive Protein ( CRP) provides useful information for thediagnosis, therapy and monitoring of inflammatory processesand associated diseases. For the evaluation of Relative Riskfor Cardiovascular Disease, a High Sensitivity CRP (HSCRP)should be ordered. CBC W/Diff, Automatedon 12-0 Absolute Lymph 1.91 X10 3/uL Normal 0.83-4.51 [facility] Comment on above: Performed By: #### L 100.0100, L500.4050 #### [facility] [address] [place], [address] Absolute Neut 5.3 X10 3/uL Normal 2.0-7.7 [facility] Comment on above: Performed By: #### L 100.0100, L500.4050 #### [facility] [address] [place], [address] Basophils/100 WBC (Bld) 0.8 % Normal 0-1 [facility] Comment on above: Performed By: #### L 100.0100, L500.4050 #### [facility] [address] [place], [address] Eosinophils/100 WBC (Bld) 1.4 % Normal 0-5 [facility] Comment on above: Performed By: #### L 100.0100, L500.4050 #### [facility] [address] [place], [address] Erythrocyte distribution width (RBC) [Ratio] 11.9 % Normal 11.6-14.6 [facility] Comment on above: Performed By: #### L 100.0100, L500.4050 #### [facility] [address] [place], [address] Hematocrit (Bld) [Volume fraction] 40.9 % Normal 37-47 [facility] Comment on above: Performed By: #### L 100.0100, L500.4050 #### [facility] [address] [place], [address] Hemoglobin (Bld) [Mass/Vol] 13.8 g/dL Normal 12.0-15.0 [facility] Comment on above: Performed By: #### L 100.0100, L500.4050 #### [facility] [address] [place], [address] IG% 0.500 Normal 0.0-0.9 [facility] Comment on above: Result Comment: IG% - Immature Granulocytes (promyelocytes, myelocytes and metamyelocytes) > 1% indicates that a LEFT SHIFT is Present. Performed By: #### L 100.0100, L500.4050 #### [facility] [address] [place], [address] Lymphocytes/100 WBC (Bld) 24.1 % Normal 19-41 [facility] Comment on above: Performed By: #### L 100.0100, L500.4050 #### [facility] [address] [place], [address] MCH (RBC) [Entitic mass] 29.2 pg Normal 27.0-32.0 [facility] Comment on above: Performed By: #### L 100.0100, L500.4050 #### [facility] [address] [place], [address] MCHC (RBC) [Mass/Vol] 33.7 g/dL Normal 32-36 [facility] Comment on above: Performed By: #### L 100.0100, L500.4050 #### [facility] [address] [place], [address] MCV (RBC) [Entitic vol] 86.7 fL Normal 81-99 [facility] Comment on above: Performed By: #### L 100.0100, L500.4050 #### [facility] [address] [place], [address] Monocytes/100 WBC (Bld) 7.1 % Normal 0-10 [facility] Comment on above: Performed By: #### L 100.0100, L500.4050 #### [facility] [address] [place], [address] Neutrophils/100 WBC (Bld) 66.1 % Normal 47-70 [facility] Comment on above: Performed By: #### L 100.0100, L500.4050 #### [facility] [address] [place], [address] Nucleated RBC (Bld) [#/Vol] 0 10*3/uL Normal 0-5 [facility] Comment on above: Performed By: #### L 100.0100, L500.4050 #### [facility] [address] [place], [address] Platelet mean volume (Bld) [Entitic vol] 10.5 fL Normal 6.2-12.0 [facility] Comment on above: Performed By: #### L 100.0100, L500.4050 #### [facility] [address] [place], [address] Platelets (Bld) [#/Vol] 324 10*3/uL Normal 150-450 [facility] Comment on above: Performed By: #### L 100.0100, L500.4050 #### [facility] [address] [place], [address] RBC (Bld) [#/Vol] 4.72 10*6/uL Normal 4.2-5.4 [facility] Comment on above: Performed By: #### L 100.0100, L500.4050 #### [facility] [address] [place], [address] RDW SD 37.8 fl Normal 35.1-43.9 [facility] Comment on above: Performed By: #### L 100.0100, L500.4050 #### [facility] [address] [place], [address] WBC (Bld) [#/Vol] 7.9 10*3/uL Normal 4.4-11.0 [facility] Comment on above: Performed By: #### L 100.0100, L500.4050 #### [facility] [address] [place], [address] CRPon 09-15-2024 C-REACTIVE PROT 3.62 mg/L High 0.0-3.0 [facility] Comment on above: Result Comment: C-Re active Protein (CRP) provides useful information for the diagnosis, therapy and monitoring of inflammatory processes and associated diseases. For the evaluation of Relative Risk for Cardiovascular Disease, a High Sensitivity CRP (HSCRP) should be ordered. Performed By: #### L 501.6710, L3410.9998, L500.4050, L100.0100, L101.9900, L504.2610 #### [facility] [address] [place], [address] Carbon dioxide measurementOr dered By: Samuel Nunez on 09-15-2024 CO2 [Moles/Vol] 26.0 mmol/L 21.0-32.0 [facility] Chloride measurementOrdered By: Samuel Nunez on 09-15-2024 Chloride [Moles/Vol] 104 mmol/L 98-[address] [facility] Comprehensive Metabolic Prof ilon 09-15-2024 Albumin [Mass/Vol] 4.4 g/dL Normal 3.2-5.0 [facility] Comment on above: Performed By: #### L 501.6710, L3410.9998, L500.4050, L100.0100, L101.9900, L504.2610 #### [facility] [address] [place], [address] Albumin/Globulin [Mass ratio] 1.2 {ratio} Normal 0.9-2.4 [facility] Comment on above: Performed By: #### L 501.6710, L3410.9998, L500.4050, L100.0100, L101.9900, L504.2610 #### [facility] [address] [place], [address] ALK P 64 U/L Normal 45-117 [facility] Comment on above: Performed By: #### L 501.6710, L3410.9998, L500.4050, L100.0100, L101.9900, L504.2610 #### [facility] [address] [place], [address] ALT [Catalytic activity/Vol] 38 U/L Normal 13-56 [facility] Comment on above: Performed By: #### L 501.6710, L3410.9998, L500.4050, L100.0100, L101.9900, L504.2610 #### [facility] [address] [place], [address] AST [Catalytic activity/Vol] 14 U/L Low 15-37 [facility] Comment on above: Performed By: #### L 501.6710, L3410.9998, L500.4050, L100.0100, L101.9900, L504.2610 #### [facility] [address] [place], [address] Bilirubin [Mass/Vol] 0.50 mg/dL Normal 0.20-1.[address] [facility] Comment on above: Result Comment: For patients on eltrombopag therapy, use of Dimension [place] TBIL is not recommended. Performed By: #### L 501.6710, L3410.9998, L500.4050, L100.0100, L101.9900, L504.2610 #### [facility] [address] [place], [address] BUN/CRE 9.8 RATIO Low 10-20 [facility] Comment on above: Performed By: #### L 501.6710, L3410.9998, L500.4050, L100.0100, L101.9900, L504.2610 #### [facility] [address] [place], [address] CA,Total 9.3 mg/dL Normal 8.5-10.1 [facility] Comment on above: Performed By: #### L 501.6710, L3410.9998, L500.4050, L100.0100, L101.9900, L504.2610 #### [facility] [address] [place], [address] Chloride [Moles/Vol] 104 mmol/L Normal 98-[address] [facility] Comment on above: Performed By: #### L 501.6710, L3410.9998, L500.4050, L100.0100, L101.9900, L504.2610 #### [facility] [address] [place], [address] CO2 [Moles/Vol] 26.0 mmol/L Normal 21.0-32.0 [facility] Comment on above: Performed By: #### L 501.6710, L3410.9998, L500.4050, L100.0100, L101.9900, L504.2610 #### [facility] [address] [place], [address] Creatinine [Mass/Vol] 0.82 mg/dL Normal 0.55-1.02 [facility] Comment on above: Result Comment: The validity of the calculated GFR GFRAA in patients over 70 years has not been determined. Clinical correlation is essential. Performed By: #### L 501.6710, L3410.9998, L500.4050, L100.0100, L101.9900, L504.2610 #### [facility] [address] [place], [address] EST GFR - AA 104 mL/min Normal >60 [facility] Comment on above: Result Comment: Afri can Maldivian GFR Calc Performed By: #### L 501.6710, L3410.9998, L500.4050, L100.0100, L101.9900, L504.2610 #### [facility] [address] [place], [address] GAP 6 Normal 5-15 [facility] Comment on above: Performed By: #### L 501.6710, L3410.9998, L500.4050, L100.0100, L101.9900, L504.2610 #### [facility] [address] [place], [address] GFR/1.73 sq M.predicted among non-blacks MDRD (S/P/Bld) [Vol rate/Area] 86 mL/min/{1.73_m2} Normal >60 [facility] Comment on above: Result Comment: Non- GFR Calc Performed By: #### L 501.6710, L3410.9998, L500.4050, L100.0100, L101.9900, L504.2610 #### [facility] [address] [place], [address] Globulin (S) [Mass/Vol] 3.8 g/dL Normal 2.2-4.2 [facility] Comment on above: Performed By: #### L 501.6710, L3410.9998, L500.4050, L100.0100, L101.9900, L504.2610 #### [facility] [address] [place], [address] Glucose [Mass/Vol] 114 mg/dL High 74-106 [facility] Comment on above: Result Comment: Fast ing Glucose result from 100 to 125 mg/dL suggests IMPAIRED HOMEOSTASIS per A.D.A. criteria. Performed By: #### L 501.6710, L3410.9998, L500.4050, L100.0100, L101.9900, L504.2610 #### [facility] [address] [place], [address] Potassium [Moles/Vol] 3.9 mmol/L Normal 3.5-5.1 [facility] Comment on above: Performed By: #### L 501.6710, L3410.9998, L500.4050, L100.0100, L101.9900, L504.2610 #### [facility] [address] [place], [address] Sodium [Moles/Vol] 137 mmol/L Normal 136-145 [facility] Comment on above: Performed By: #### L 501.6710, L3410.9998, L500.4050, L100.0100, L101.9900, L504.2610 #### [facility] [address] [place], [address] T PROT 8.2 g/dL Normal 6.4-8.2 [facility] Comment on above: Performed By: #### L 501.6710, L3410.9998, L500.4050, L100.0100, L101.9900, L504.2610 #### [facility] [address] [place], [address] Urea nitrogen [Mass/Vol] 8 mg/dL Normal 7-18 [facility] Comment on above: Performed By: #### L 501.6710, L3410.9998, L500.4050, L100.0100, L101.9900, L504.2610 #### [facility] [address], [address] Endomysial IgA antibody assa yOrdered By: Samuel Nunez on 09-15-2024 Endomysial IgA Antibody Negative Negative [facility] Eosinophil percentageOrdered By: Samuel Nunez on 09-15-2024 Eosinophils/100 WBC (Bld) 1.4 % 0-5 [facility] Erythrocyte Sed Rateon 09-15 SED RATE 3 mm/hr Normal 0-30 [facility] Comment on above: Performed By: #### L 100.0100, L500.4050 #### [facility] [address] [place], [address] Erythrocyte distribution wid th ratioOrdered By: Samuel Nunez on 09-15-2024 Erythrocyte distribution width (RBC) [Ratio] 11.9 % 11.6-14.6 [facility] Erythrocyte distribution wid th standard deviationOrdered By: Samuel Nunez on 09-15-2024 Erythrocyte distribution width (RBC) [Entitic vol] 37.8 fL 35.1-43.9 [facility] Erythrocyte sedimentation ra teOrdered By: Samuel Nunez on 09-15-2024 ESR (Bld) [Velocity] 3 mm/h 0-[address] [facility] Estimated glomerular filtrat ion rate (GFR) AmericanOrdered By: Samuel Nunez on 09-15-2024 Estimated GFR (MDRD) Amer 104 mL/min >60 [facility] Comment on above: GFR Calc Gamma globulin Elph [Mass/Vo l]Ordered By: Samuel Nunez on 09-15-2024 Gamma Globulins (INGRID) 1.0 g/dL 0.4-1.8 [facility] Gastroenterology Visit Repor ton 09-15-2024 Gastroenterology Visit Report [facility] [address] [place] [address] OFFICE VISIT Date of Service: 09/15/24 MR#: [id number] Acct: [id number] Name: PROSPER HARRY Rep #: [id number] : 1990 Provider: Samuel Nunez DO Age/Sex: 33/F Location: [facility] [place] Status: Signed Intake Vital Signs 09/11/24 05:49 Height 5 ft 6 in Intake Visit Reasons: Test Result Allergies morphine Allergy (Verified 09/11/24 05:43) Hives Medications ???Medication ???Instructions ???Recorded ???Confirmed ???Type cholecalciferol (vitamin D3) 25 25 mcg PO DAILY 10/31/21 09/15/24 History mcg (1,000 unit) capsule vitamin E 268 mg (400 unit) capsule 268 mg PO BID 12/01/23 09/15/24 History omeprazole 40 mg capsule,delayed 40 mg PO BID #60 caps 08/07/24 09/15/24 Rx release ascorbic acid 1,000 1 ea PO DAILY 09/06/24 09/15/24 History ww-nsbmtphpaxge-bzevwpji powder effervescent pack (Emergen-C Immune Plus) PFSH Medical History Anemia Celiac disease History of Crohn's disease History of IBS Left wrist sprain Contusion of left forearm Contusion of left hip Dietary restriction Anxiety Gastric reflux Non-smoker Weight gain, abnormal Amenorrhea Biliary colic Anemia Anxiety, generalized IgA deficiency Non-celiac gluten sensitivity Malabsorption syndrome Metabolic syndrome Irritable bowel syndrome with diarrhea Abdominal pain GERD (gastroesophageal reflux disease) Sinusitis Gestational diabetes mellitus (GDM) COVID-19 Biliary dyskinesia Epigastric pain Acute hepatitis Pancytopenia Infectious mononucleosis Ovarian cyst Abnormal liver function tests Surgical History Hx of anterior cruciate ligament tear reconstruction Hx of colonoscopy H/O hemicolectomy History of cholecystectomy ( 04/2020) History of esophagogastroduodenoscopy (EGD) S/P appendectomy S/P ACL surgery S/P tonsillectomy Family History Grandmother Diabetes Father Hypertension Grandfather Cancer Sister Crohn's disease Social History Smoking Status: Never smoker alcohol intake: current details: occasionally substance use type: does not use caffeine: Yes Type: coffee what type of physical activity do you participate in: aerobics frequency: 5-6 times per week seatbelt use: always do you feel safe at home: Yes additional social history: -Martin HPI HPI Details: PROSPER HARRY, is a 33 F who presents to the office today for follow up. WSA established previously ? EGD 3..20 variable Zline 36cm; 1cm hiatal hernia; gastritis with friable mucosa. H.Pylori negative. ? Laparoscopic cholecystectomy 05.01.20 with lysis of adhesions. ? EGD and colonoscopy 06.12.22 EGD gastritis; esophagitis with EOE changes and >20 eosinophil presence. ? Colonoscopy internal hemorrhoids; end-to-end colo-colonic anastomosis. *BGI established 07.03.22 with previously diagnosed EOE managed with omeprazole 20mg QD and loose stools with FH Crohn???s disease. Start cholestyramine ? Biochemical CBC, ESR, CMP, LFT, CRP, LDH, ALOK comp, ANCA, GAME, INGRID, IBD without pertinent abnormality ? Stool calprotectin, elastase, c.difficile, EP, O/P, giardia WNL? Lactoferrin + ? US and elastography 08.25.22 hepatic measurement 16.1cm with fatty infiltration, stiffness 9.2kPa OV 09.01.22 with improvement of loose stools. Start ursodiol ? Biochemical triglycerides H211, LDL H42 ? Start Dupixent OV 03.01.23 for IBS, EOE, NAFLD follow up. Currently having difficulty with bloating, suspect SIBO, Start doxycycline. ? US and elastography 04.15.23 hepatic measurement 18.6cm with fatty infiltration, stiffness 4.4kPa Contact 04.21.23 with US/elastography update; continue current medications OV 08.30.23 feels she is doing well. Dupixent continues without difficulty. No swallowing issues. OV 02.28.24 OV 08.30.24 pt reports 1-2 loose bm daily for the past 1-2 months; endorses blood in stool, but states that she has a hx of hemorrhoids and is unsure is that's where the bleeding is coming from. Pt reports intermittent sharp abd pain, unable to pinpoint trigger. Pt notes gas and bloating even when she has not eaten anything. EGD and [place] (more content not included)... Normal [facility] Glomerular filtration rate ( GFR) estimationOrdered By: Samuel Nunez on 09-15-2024 Estimated GFR (MDRD) Non-Af Amer 86 mL/min >60 [facility] Comment on above: Non- GFR Calc Glucose measurementOrdered B y: Samuel Nunez on 09-15-2024 Glucose [Mass/Vol] 114 mg/dL High 74-106 [facility] Comment on above: Fasting Glucose resu lt from 100 to 125 mg/dL suggests IMPAIRED HOMEOSTASIS per A.D.A. criteria. HBV surface Ag IA QlOrdered By: Samuel Nunez on 09-15-2024 Hepatitis B Surface Antigen Negative Negative [facility] Hematocrit Auto (Bld) [Volum e fraction]Ordered By: Samuel Nunez on 09-15-2024 Hematocrit (Bld) [Volume fraction] 40.9 % 37-47 [facility] Hemoglobin measurementOrdere d By: Samuel Nunez on 09-15-2024 Hemoglobin (Bld) [Mass/Vol] 13.8 g/dL 12.0-15.0 [facility] Hepatitis A virus IgM antibo dy assayOrdered By: Samuel Nunez on 09-15-2024 Hepatitis A IgM Antibody Negative Negative [facility] Comment on above: A negative anti-HAV IgM result suggests no recent orcurrent HAV infection. Hepatitis B virus core IgM a ntibody assayOrdered By: Samuel Nunez on 09-15-2024 Hepatitis B Core IgM Antibody Negative Negative [facility] Hepatitis C virus antibody a ssayOrdered By: Samuel Nunez on 09-15-2024 Hepatitis C Antibody (EIA) Non-Reactive Non Reactive [facility] IgA [Mass/Vol]Ordered By: Ra good Nunez on 09-15-2024 Immunoglobulin A 57 mg/dL Low 87-352 [facility] IgG [Mass/Vol]Ordered By: Ra good Nunez on 09-15-2024 Immunoglobulin G 1003 mg/dL 586-1602 [facility] Immature granulocytes/100 WB C Auto (Bld)Ordered By: Samuel Nunez on 09-15-2024 Immature granulocytes/100 WBC (Bld) 0.500 % 0.0-0.9 [facility] Comment on above: IG% - Immature Granu locytes (promyelocytes, myelocytes and metamyelocytes) > 1% indicates that a LEFT SHIFT is Present. Immunoglobulin M measurement Ordered By: Samuel Nunez on 09-15-2024 Immunoglobulin M 130 mg/dL 26-217 [facility] Interpretation IEP [Interp]O rdered By: Samuel Nunez on 09-15-2024 Immunofixation Screen Comment . [facility] Comment on above: No monoclonality det ected. Laboratory - Chemistry and C hemistry - challengeOrdered By: Samuel Nunez on 09-15-2024 AST [Catalytic activity/Vol] 14 U/L Low 15-37 [facility] Lymphocytes Auto (Unsp spec) [#/Vol]Ordered By: Samuel Nunez on 09-15-2024 Lymphocytes (Bld) [#/Vol] 1.91 10*3/uL 0.83-4.51 [facility] Lymphocytes/100 WBC Auto (Un sp spec)Ordered By: Samuel Nunez on 09-15-2024 Lymphocytes/100 WBC (Bld) 24.1 % 19-41 [facility] M. tuberculosis tuberculin s mingo IFN-g Ql (Bld)Ordered By: Samuel Nunez on 09-15-2024 TB Test (QFT) Antigen 1 0.02 IU/mL . [facility] MCV (mean corpuscular volume ) determinationOrdered By: Samuel Nunez on 09-15-2024 MCV (RBC) [Entitic vol] 86.7 fL 81-99 [facility] Mean corpuscular hemoglobin (MCH) determinationOrdered By: Samuel Nunez on 09-15-2024 MCH (RBC) [Entitic mass] 29.2 pg 27.0-32.0 [facility] Mean corpuscular hemoglobin concentration (MCHC) determinationOrdered By: Samuel Nunez on 09-15-2024 MCHC (RBC) [Mass/Vol] 33.7 g/dL 32-36 [facility] Mean platelet volume determi nationOrdered By: Samuel Nunez on 09-15-2024 Platelet mean volume (Bld) [Entitic vol] 10.5 fL 6.2-12.0 [facility] Monocyte percentageOrdered B y: Samuel Nunez on 09-15-2024 Monocytes/100 WBC (Bld) 7.1 % 0-10 [facility] Neutrophil percentageOrdered By: Samuel Nunez on 09-15-2024 Neutrophils/100 WBC (Bld) 66.1 % 47-70 [facility] No Panel InformationOrdered By: Samuel Nunez on 09-15-2024 Hepatitis C Antibody Comment Comment . [facility] Comment on above: Not infected with HC V unless early or acute infection issuspected (which may be delayed in an immunocompromisedindividual), or other evidence exists to indicate HCVinfection.Performed at: [address] [id number] Director: Cem Howell PhD, Phone: [phone] Tissue Transglutaminase IgG Ab <2 U/mL 0-5 [facility] Comment on above: Negative 0 - 5 Weak Positive 6 - 9 Positive >9 Nucleated red blood cell per centageOrdered By: Samuel Nunez on 09-15-2024 Nucleated RBC/100 WBC (Bld) [Ratio] 0 % 0-5 [facility] Platelet countOrdered By: Ra good Nunez on 09-15-2024 Platelets (Bld) [#/Vol] 324 10*3/uL 150-450 [facility] Potassium measurementOrdered By: Samuel Nunez on 09-15-2024 Potassium [Moles/Vol] 3.9 mmol/L 3.5-5.1 [facility] Protein Fractions Immunofixa tion Tutu [Interp]Ordered By: Samuel Nunez on 09-15-2024 M-Robbie (INGRID) Not Observed g/dL Not Observed [facility] Quantiferon-TB Gold Plus kiana tOrdered By: Samuel Nunez on 09-15-2024 TB Test (QFT) Comment . [facility] Comment on above: QuantiFERON-TB Gold Plus is a qualitative indirect test forM tuberculosis infection (including disease) and isintended for use in conjunction with risk assessment,radiography, and other medical and diagnostic evaluations.The QuantiFERON-TB Gold Plus result is determined bysubtracting the Nil value from either TB antigen (Ag)value. The Mitogen tube serves as a control for the test. TB Test (QFT) Antigen 2 0 IU/mL . [facility] TB Test (QFT) Mitogen > 10.00 IU/mL . [facility] TB Test (QFT) Nil 0.02 IU/mL . [facility] TB Test (QFT) Positive Criteria Negative Negative [facility] Comment on above: No response to M tub erculosis antigens detected.Infection with M tuberculosis is unlikely, but high riskindividuals should be considered for additional testing(ATS/IDSA/CDC Clinical Practice Guidelines, 2017). Thereference range is an Antigen minus Nil result of <0.35IU/mL.The specimen received for QuantiFERON testing was incubatedby the ordering institution. Specific procedures outlinedin our Directory of Services and in the package insert forthe QuantiFERON Gold (In Tube) test must be followed toenable for proper stimulation of cells for the productionof interferon gamma. Chemiluminescence immunoassaymethodology RBC Auto (Bld) [#/Vol]Ordere d By: Samuel Nunez on 09-15-2024 RBC (Bld) [#/Vol] 4.72 10*6/uL 4.2-5.4 [facility] Serum albumin/globulin ratio Ordered By: Samuel Nunez on 09-15-2024 Albumin/Globulin (INGRID) 1.2 0.7-1.7 [facility] Serum anion gap measurementO rdered By: Samuel Nunez on 09-15-2024 Anion gap [Moles/Vol] 6 mmol/L 5-15 [facility] Serum globulin measurement ( mass/volume)Ordered By: Samuel Nunez on 09-15-2024 Globulin (S) [Mass/Vol] 3.4 g/dL 2.2-3.9 [facility] Serum or plasma alanine lynn otransferase (ALT) measurementOrdered By: Samuel Nunez on 09-15-2024 ALT [Catalytic activity/Vol] 38 U/L 13-56 [facility] Serum or plasma albumin nadine urement (mass/volume)Ordered By: Samuel Nunez on 09-15-2024 Albumin [Mass/Vol] 4.4 g/dL 3.2-5.0 [facility] Serum or plasma alkaline rosa sphatase measurementOrdered By: Samuel Nunez on 09-15-2024 ALP [Catalytic activity/Vol] 64 U/L 45-117 [facility] Serum or plasma calcium nadine urement (mass/volume)Ordered By: Samuel Nunez on 09-15-2024 Calcium [Mass/Vol] 9.3 mg/dL 8.5-10.1 [facility] Serum or plasma creatinine m easurement (mass/volume)Ordered By: Samuel Nunez on 09-15-2024 Creatinine [Mass/Vol] 0.82 mg/dL 0.55-1.02 [facility] Comment on above: The validity of the calculated GFR & GFRAA in patients over 70 years has not been determined. Clinical correlation is essential. Serum or plasma protein nadine urement (mass/volume)Ordered By: Samuel Nunez on 09-15-2024 Protein [Mass/Vol] 7.4 g/dL 6.0-8.5 [facility] Serum or plasma urea nitroge n measurement (mass/volume)Ordered By: Samuel Nunez on 09-15-2024 Urea nitrogen [Mass/Vol] 8 mg/dL 7-18 [facility] Sodium levelOrdered By: Angela Mei on 09-15-2024 Sodium [Moles/Vol] 137 mmol/L 136-145 [facility] Total proteinOrdered By: Christiano Nunez on 09-15-2024 Protein [Mass/Vol] 8.2 g/dL 6.4-8.2 [facility] White blood cell (WBC) count Ordered By: Smauel Nunez on 09-15-2024 WBC (Bld) [#/Vol] 7.9 10*3/uL 4.4-11.0 [facility] tTG IgA Qn (S)Ordered By: Ra good Nunez on 09-15-2024 Tissue Transglutaminase IgA Ab <2 U/mL 0-3 [facility] Comment on above: Negative 0 - 3 Weak Positive 4 - 10 Positive >10 Tissue Transglutaminase (tTG) has been identified as the endomysial antigen. Studies have demonstr- ated that endomysial IgA antibodies have over 99% specificity for gluten sensitive enteropathy. Colonoscopy Reporton [address] [facility] Medical Records Department [address] [place] [address] Colonoscopy Report MR#: [id number] Acct: [id number] Name: PROSPER HARRY Rep #: [id number] : 1990 33 From: Samuel Nunez DO PCP: Dr. Ambreen Lyn MD [place] [facility] Patient Name: Prosper Harry Procedure Date: 09/11/2024 6:54 AM Date of : 1990 Age: 33 Procedure: Colonoscopy Indications: Crohn's disease of the small bowel, Disease activity assessment of Crohn's disease of the small bowel, Assess therapeutic response to therapy of Crohn's disease of the small bowel Providers: Samuel Nunez DO Medicines: Monitored Anesthesia Care Patient Profile: This is a 33 year old female. Refer to note in patient chart for documentation of history and physical. Patient has symptoms of acute epigastric abdominal pain and chronic epigastric abdominal pain. Last Colonoscopy: within the past 3 years. Complications: No immediate complications. Procedure: Pre-Anesthesia Assessment: - Prior to the procedure, a History and Physical was performed, and patient medications and allergies were reviewed. The patient is competent. The risks and benefits of the procedure and the sedation options and risks were discussed with the patient. All questions were answered and informed consent was obtained. Patient identification and proposed procedure were verified by the physician. Mental Status Examination: normal. Prophylactic Antibiotics: The patient does not require prophylactic antibiotics. Prior Anticoagulants: The patient has taken no anticoagulant or antiplatelet agents except for NSAID medication. ASA Grade Assessment: II - A patient with mild systemic disease. After reviewing the risks and benefits, the patient was deemed in satisfactory condition to undergo the procedure. The anesthesia plan was to use monitored anesthesia care (MAC). Immediately prior to administration of medications, the patient was re-assessed for adequacy to receive sedatives. The heart rate, respiratory rate, oxygen saturations, blood pressure, adequacy of pulmonary ventilation, and response to care were monitored throughout the procedure. The physical status of the patient was re-assessed after the procedure. After I obtained informed consent, the scope was passed under direct vision. Throughout the procedure, the patient's blood pressure, pulse, and oxygen saturations were monitored continuously. The Colonoscope was introduced through the anus and advanced to the ileocolonic anastomosis. The colonoscopy was performed without difficulty. The patient tolerated the procedure well. The quality of the bowel preparation was good. The terminal ileum, ileocecal valve, appendiceal orifice, and rectum were photographed. Scope In: 6:57:04 AM Scope Out: 7:09:43 AM Total Procedure Duration Time 0 hours 12 minutes 39 seconds Findings: The perianal and digital rectal examinations were normal. The colon (entire examined portion) appeared normal. There was evidence of a prior end-to-end ileo-colonic anastomosis in the ascending colon. This was patent and was characterized by inflammation and ulceration. The anastomosis was traversed. Patchy inflammation characterized by aphthous ulcerations was found in the distal ileum and in the terminal ileum. The inflammation was mild in severity. Biopsies were taken with a cold forceps for histology. Verification of patient identification for the specimen was done. Verification of patient identification for the specimen was done. Estimated blood loss was minimal. Impression: - The entire examined colon is normal. - Patent end-to-end ileo-colonic anastomosis, characterized by inflammation and ulceration. - Inflammatory bowel disease. Inflammation was found. This was mild in severity. Biopsied. Recommendation: - Discharge patient to home. - Resume previous diet. - Continue present medications. - Await pathology results. - Repeat colonoscopy in 1 year to assess disease activity. Procedure Code(s): --- Professional --- 28290, Colonoscopy, flexible; with biopsy, single or multiple CPT copyright 2021 [employer]. All rights reserved. The codes documented in this report are preliminary and upon life claims examiner review may be revised to meet current compliance requirements. Samuel Nunez DO 09/11/2024 7:27:05 AM This report has been signed electronically. Number of Addenda: 0 Note Initiated On: 09/11/2024 6:54 AM 09/11/24 0727 Date Samuel Morrisignjoaquim Signature: Date (if indicated) CC: Dr. Ambreen Lyn MD; Samuel Nunez DO Date Dictated: 09/11/24 0654 Date Transcribed: Rocket Assembly Operator: RF Signed Normal [facility] EGD Reporton 09-11-[address] [facility] Medical Records Department [address] [place] [address] EGD Report MR#: [id number] Acct: [id number] Name: PROSPER HARRY Rep #: [id number] : 1990 33 From: Samuel Nunez DO PCP: Dr. Ambreen Lyn MD [place] [facility] Patient Name: Prosper Harry Procedure Date: 09/11/2024 6:25 AM Date of : 1990 Age: 33 Procedure: Upper GI endoscopy Indications: Epigastric abdominal pain Providers: Samuel Nunez DO Medicines: Monitored Anesthesia Care Patient Profile: This is a 33 year old female. Refer to note in patient chart for documentation of history and physical. Patient has symptoms of acute epigastric abdominal pain and chronic epigastric abdominal pain. Complications: No immediate complications. Procedure: Pre-Anesthesia Assessment: - Prior to the procedure, a History and Physical was performed, and patient medications and allergies were reviewed. The patient is competent. The risks and benefits of the procedure and the sedation options and risks were discussed with the patient. All questions were answered and informed consent was obtained. Patient identification and proposed procedure were verified by the physician. Mental Status Examination: normal. Prophylactic Antibiotics: The patient does not require prophylactic antibiotics. Prior Anticoagulants: The patient has taken no anticoagulant or antiplatelet agents except for NSAID medication. ASA Grade Assessment: II - A patient with mild systemic disease. After reviewing the risks and benefits, the patient was deemed in satisfactory condition to undergo the procedure. The anesthesia plan was to use monitored anesthesia care (MAC). Immediately prior to administration of medications, the patient was re-assessed for adequacy to receive sedatives. The heart rate, respiratory rate, oxygen saturations, blood pressure, adequacy of pulmonary ventilation, and response to care were monitored throughout the procedure. The physical status of the patient was re-assessed after the procedure. After obtaining informed consent, the endoscope was passed under direct vision. Throughout the procedure, the patient's blood pressure, pulse, and oxygen saturations were monitored continuously. The Colonoscope was introduced through the mouth, and advanced to the second part of duodenum. The upper GI endoscopy was accomplished without difficulty. The patient tolerated the procedure well. Scope In: 6:48:20 AM Scope Out: 6:54:34 AM Total Procedure Duration Time 0 hours 6 minutes 14 seconds Findings: The examined esophagus was normal. Few non-bleeding linear gastric ulcers with no stigmata of bleeding were found in the gastric body. The largest lesion was 5 mm in largest dimension. Biopsies were taken with a cold forceps for histology. Verification of patient identification for the specimen was done. Estimated blood loss was minimal. Patchy mildly erythematous mucosa without active bleeding and with no stigmata of bleeding was found in the duodenal bulb. Biopsies were taken with a cold forceps for histology. Verification of patient identification for the specimen was done. Estimated blood loss was minimal. Impression: - Normal esophagus. - Non-bleeding gastric ulcers with no stigmata of bleeding. Biopsied. - Erythematous duodenopathy. Biopsied. Recommendation: - Discharge patient to home. - Resume previous diet. - Continue present medications. - Await pathology results. - Repeat upper endoscopy in 6 months to check healing. Procedure Code(s): --- Professional --- 84245, Esophagogastroduodenoscopy, flexible, transoral; with biopsy, single or multiple CPT copyright 2021 [employer]. All rights reserved. The codes documented in this report are preliminary and upon life claims examiner review may be revised to meet current compliance requirements. Samuel Nunez DO 09/11/2024 7:20:37 AM This report has been signed electronically. Number of Addenda: 0 Note Initiated On: 09/11/2024 6:25 AM 09/11/24 0721 Date Samuel Gross Signature: Date (if indicated) CC: Dr. Ambreen Lyn MD; Samuel Nunez DO Date Dictated: 09/11/24624 Date Transcribed: Rocket Assembly Operator: REYES Signed Normal [facility] H Pylori (initial)on H Pylori (initial) ------- Patient Age/Sex Location Account Attending Physician PROSPER HARRY 33/F EN [id number] Samuel Nunez DO Specimen: [id number] Received: 09/11/24 Status: RAZ Yamila Num: [id number] Spec Type: IMMUNO Subm Dr: Samuel Nunez DO PHYSICIAN INSTITUTION [place] [address] SPECIMEN INFORMATION: Tissue Source: A- Gastric body ulcer biopsy Clinical Info: Eosinophilic esophagitis, non alcoholic fatty liver disease, bloating, irritable bowel syndrome Specimen Number: [id number] CPT code: 72896 METHODOLOGY: Deparaffinized sections of prefer/formalin-fixed tissue or PAP/DQ stained slides are incubated with monoclonal/polyclonal antibodies/oligonucleotide probes. Localization is made via biotin free immunoperoxidase method. Appropriate controls are performed and reacted as expected. Results on target cell population are indicated in the following table: RESULTS: ANTIBODY / CLONE RESULT Block A H Pylori (polyclonal) negative These tests were developed and their performance characteristics determined by [facility]. They may not have been cleared or approved by the U.S. Food and Drug Administration. The FDA has determined that such clearance or approval is not necessary. The above immunohistochemical/dualISH markers are ordered and reviewed by the Pathologist. INTERPRETATION: A. Gastric body ulcer, biopsy: Negative for Helicobacter pylori organisms. AM. 09/12/2024 Signed (signature on file) Dr. Godfrey Davis, 09/12/24 1226 Normal [facility] Comment on above: Performed By: #### L 501.6710, L3410.9998, L500.4050, L100.0100, L101.9900, L504.2610 #### [facility] [address] [place], [address] MR/POSTOP.Hoa 09-11-2024 MR/POSTOP.[facility] Medical Records Department [address] [place] [address] Anesthesia Postop Eval I 09/11/24 0720 MR#: [id number] Acct: [id number] Name: PROSPER HARRY Rep #: [id number] : 1990 33 From: Juan Manuel Larkin PCP: Dr. Ambreen Lyn MD Status:REG [facility] Y Race: C Location: [place] [address] Anesthesia: Postop Eval I Current Vital Signs Temperature: 97 F Pulse Rate: 101 Blood Pressure: 114/72 Respiratory Rate: 16 Pulse Ox: 100 Oxygen Delivery Method: Room Air Assessment Airway patent: Yes Spontaneous unlabored respirations: Yes Mental status: Awake and Calm nausea: No Vomiting: No Anesthesia Complication: No Fluid Hydration Crystalloid volume administer (ml): 90 Total IV fluid infused: 90 Progress Note Anesthesia document: Postop Eval 1 completed: Yes 09/11/24720 Date Juan Manuel Carcamoigner Signature: Date CC: Signed Normal [facility] MR/[id number] 09-11-2024 MR/POSTOPAN2 [facility] Medical Records Department [address] [place] [address] Anesthesia Postop Eval II 09/11/24811 MR#: [id number] Acct: [id number] Name: PROSPER HARRY Rep #: [id number] : 1990 33 From: Cy De Los Santos MD PCP: Dr. Ambreen Lyn MD Status:[facility] Y Race: C Location: [place] Anesthesia Postop Eval I Sum Postop Eval Completion status Anesthesia document: Postop Eval 1 completed: Yes Anesthesia Postop Eval I Summary Anesthesia Postop Eval I Summary: Anesthesia Postop Eval I: Assessment Summary Airway patent Yes 09/11/24 07:21 [email or web address] Spontaneous unlabored Yes 09/11/24 07:21 [email or web address] respirations Mental status Awake,Calm 09/11/24 07:21 [email or web address] nausea No 09/11/24 07:21 [email or web address] Vomiting No 09/11/24 07:21 [email or web address] Anesthesia Postop Eval I: Fluid Summary Crystalloid volume administer 90 09/11/24 07:21 [email or web address] (ml) Colloids volume administered ( ml) Blood Product volume administered (ml) Total IV fluid infused 90 09/11/24 07:21 [email or web address] Anesthesia Postop Eval I: Summary Notes Anesthesia Complication No 09/11/24 07:21 [email or web address] Anesthesia Complication Comment: Post-operative progress note Anesthesia: Postop Eval II Evaluation Mental status: Awake Pain Level: 0 nausea: No Vomiting: No 09/11/24 0812 Date Cy Garcia Signature: Date CC: Signed Normal [facility] ,Urineon 09-11-2024 Beta HCG ( test) Ql (U) Negative Normal [facility] Comment on above: Result Comment: Very dilute urine specimens, as indicated by a low specific gravity, may not contain termite control service representative levels of hCG. If is still suspected, a first morning urine specimen should be collected 48 hours later and tested. Performed By: #### L 501.6710, L3410.9998, L500.4050, L100.0100, L101.9900, L504.2610 #### [facility] [address] [place], [address] Surgery Specimen Level Jose 09-11-2024 Surgery Specimen Level IV Patient Age/Sex Location Account Attending Physician PROSPER HARRY 33/F EN [id number] Samuel Nunez DO Specimen: [id number] Received: 09/11/24 Status: RAZ Driscoll Num: [id number] Spec Type: EGD BIOPSY Subm Dr: Samuel Nunez DO HEADER OPERATION: Colonoscopy, EGD biopsy PRE-OP DIAGNOSIS: Eosinophilic esophagitis, non-alcoholic fatty liver disease, bloating, irritable bowel syndrome TISSUE SUBMITTED: A- Gastric body biopsy, B- Duodenum biopsy, C- Terminal ileum biopsy MICROSCOPIC DIAGNOSIS A. Gastric body, biopsy: Mucosal ulceration with associated acute and chronic inflammation. See comment. B. Duodenum, biopsy No pathologic change. C. Terminal ileum, biopsy: Focal acute enteritis. See comment. AM. 09/12/2024 COMMENT A. The results of immunohistochemistry for Helicobacter pylori will be reported separately ([id number]). C. There is cryptitis and cryptabscess formation, focally. Clinical correlation is suggested. MICROSCOPIC DESCRIPTION Slides are reviewed. GROSS DESCRIPTION A. Received in fixative is one container labeled with the patient's name and designated Gastric body ulcer biopsy. The specimen consists of multiple irregular fragments of light sam soft tissue that in aggregate measure 1.0 x 0.5 x 0.1 cm. The specimen is totally submitted in one cassette. B. Received in fixative is one container labeled with the patient's name and designated Duodenum biopsy. The specimen consists of two irregular fragments of light sam soft tissue that in aggregate measure 0.6 x 0.3 x 0.1 cm. The specimen is totally submitted in one cassette. C. Received in fixative is one container labeled with the patient's name and designated Terminal ileum biopsy. The specimen consists of two irregular fragments of light sam soft tissue that in aggregate measure 1.0 x 0.5 x 0.1 cm. The specimen is totally submitted in one cassette. 09/11/2024 TC:2 Patient Age/Sex Location Account Attending Physician PROSPER HARRY 33/F EN [id number] Samuel Nunez DO CPT:91263e6 Patient Age/Sex Location Account Attending Physician PROSPER HARRY 33/F EN [id number] Samuel Nunez, DO Signed (signature on file) Dr. Godfrey Davis DO 09/12/24 1204 Normal [facility] Comment on above: Performed By: #### L 501.6710, L3410.9998, L500.4050, L100.0100, L101.9900, L504.2610 #### [facility] [place], [address] Urine testOrdered By: Cy De Los Santos on 09-11-2024 HCG ( test) Ql (U) Negative [facility] Comment on above: Very dilute urine sp ecimens, as indicated by a low specificgravity, may not contain termite control service representative levels of hCG. If is still suspected, a first morning urinespecimen should be collected 48 hours later and tested. Laboratory - Microbiology an d Antimicrobial susceptibilityon 09-09-2024 SARS-CoV-2 (COVID-19) RNA FARIDEH+probe Ql (Unsp spec) Not detected [facility] No Panel Informationon 09-09 Influenza Types A,B Rapid (Clinic) Not detected [facility] Urgent Care Visit Reporton 1 11-09-2023 Urgent Care Visit Report [facility] [address], [address] [place] [address] OFFICE VISIT Date of Service: 09/09/24 MR#: [id number] Acct: [id number] Name: PROSPER HARRY Rep #: [id number] : 1990 Provider: WAYNE Chowdhury Age/Sex: 33/F Location: [facility] Status: Signed Intake Vital Signs 03/20/24 08:48 09/09/24 08:52 Height 5 ft 6 in Blood Pressure Location Lt brachial Position Sitting Respiration 16 Pulse 60 Pulse Source NIBP Temp 98.4 F Temp Source Oral Pulse Oximetry (%) 98 Oxygen Delivery Method room air Intake Visit Reasons: SINUS/EAR PAIN/COUGH Chief Complaint: drainage, ROSAS, grn mucus, cough Offal Icer Poultry Required: No Is patient in pain?: No Allergies morphine Allergy (Verified 09/09/24 09:15) Hives Medications ???Medication ???Instructions ???Recorded ???Confirmed ???Type cholecalciferol (vitamin D3) 25 25 mcg PO DAILY 10/31/21 09/09/24 History mcg (1,000 unit) capsule vitamin E 268 mg (400 unit) capsule 268 mg PO BID 12/01/23 09/09/24 History omeprazole 40 mg capsule,delayed 40 mg PO BID #60 caps 08/07/24 09/09/24 Rx release ascorbic acid 1,000 1 ea PO DAILY 09/06/24 09/09/24 History jc-zmziezbcomcj-klqegecb powder effervescent pack (Emergen-C Immune Plus) amoxicillin 875 mg tablet 875 mg PO BID 5 days #10 tabs 09/09/24 09/09/24 Rx Is last menstrual period known: No Post menopausal: No Patient : No Have you fallen in the past year?: No Nurse's Note: drainage, ROSAS, grn mucus, bilat ear pain, cough x 1 week. pt having colonoscopy wednesday. denies fever PFSH Medical History (Updated 09/09/24 @ 09:23 by WAYNE Lee) Anemia Celiac disease History of Crohn's disease History of IBS Left wrist sprain Contusion of left forearm Contusion of left hip Dietary restriction Anxiety Gastric reflux Non-smoker Weight gain, abnormal Amenorrhea Biliary colic Anemia Anxiety, generalized IgA deficiency Non-celiac gluten sensitivity Malabsorption syndrome Metabolic syndrome Irritable bowel syndrome with diarrhea Abdominal pain GERD (gastroesophageal reflux disease) Sinusitis Gestational diabetes mellitus (GDM) COVID-19 Biliary dyskinesia Epigastric pain Acute hepatitis Pancytopenia Infectious mononucleosis Ovarian cyst Abnormal liver function tests Surgical History (Updated 09/06/24 @ 14:31 by Liliana Morgan) Hx of anterior cruciate ligament tear reconstruction Hx of colonoscopy H/O hemicolectomy History of cholecystectomy ( 04/2020) History of esophagogastroduodenoscopy (EGD) S/P appendectomy S/P ACL surgery S/P tonsillectomy Family History Grandmother Diabetes Father Hypertension Grandfather Cancer Sister Crohn's disease Social History Smoking Status: Never smoker alcohol intake: current details: occasionally substance use type: does not use caffeine: Yes Type: coffee what type of physical activity do you participate in: aerobics frequency: 5-6 times per week seatbelt use: always do you feel safe at home: Yes additional social history: -Martin HPI HPI Chief Complaint: drainage, ROSAS, grn mucus, cough Details: PROSPER HARRY, is a 33 F who presents to the office today for cough -sx started 7-8 days ago -sx congested, headache, sore throat but subsided, bilateral ear pain/throbbing -nasal discharge is green -cough is dry -no fever or chills -+ sinus pressure -denies sob or myalgias -tried so far Willow D, nose spray, flonase ROS Const Constitutional: Positive for other (ROS negative x6 except what was placed in HPI) Exam Const General: cooperative, comfortable and no acute distress Orientation: alert, awake and oriented x3 HENMT Head: normal to inspection and normocephalic Ears: hearing grossly normal bilaterally, external ears normal and TM's normal bilaterally Nose: external nose normal and other (+ congestion and rhinorrhea. Moderate erythema and swelling) Face and sinus: normal facial exam, face symmetric and sinus tenderness maxillary Mouth: oral mucosae normal, lip normal, tongue normal, oropharynx normal and moist mucous membranes Throat: posterior oropharynx normal, tonsils normal, uvula midline and postnasal drainage Neck Neck: normal visual inspection, full ROM and no lymphadenopathy Resp Effort Inspection: normal respiratory effort, able to speak in complete sentences and symmetric chest movement Auscultation: Bilateral: Clear to Auscultation, Left: Clear to Auscultation and Right: Clear to Auscultation Cardio Rate: regular rate Rhythm: regular rhythm Heart Sounds: S1 normal and S2 normal GI Auscultation: normal bowel sounds Pal (more content not included)... Normal [facility] Gastroenterology Visit Repor ton 08-30-2024 Gastroenterology Visit Report [facility] Gastroenterology [address] [place] [address] OFFICE VISIT Date of Service: 08/30/24 MR#: [id number] Acct: [id number] Name: PROSPER HARRY Rep #: [id number] : 1990 Provider: Samuel Nunez DO Age/Sex: 33/F Location: [facility] Status: Signed Intake Vital Signs 02/24/24 09:35 03/20/24 08:48 Height 5 ft 6 in 5 ft 6 in Intake Visit Reasons: 6 M FU Allergies morphine Allergy (Verified 03/20/24 08:44) Hives Medications ???Medication ???Instructions ???Recorded ???Confirmed ???Type cholecalciferol (vitamin D3) 25 25 mcg PO DAILY 10/31/21 08/30/24 History mcg (1,000 unit) capsule vitamin E 268 mg (400 unit) capsule 268 mg PO BID 12/01/23 08/30/24 History omeprazole 40 mg capsule,delayed 40 mg PO BID #60 caps 08/07/24 08/30/24 Rx release PFSH Medical History (Updated 03/20/24 @ 09:[address] Natasha Lindsey MD) Left wrist sprain Contusion of left forearm Contusion of left hip PCOS (polycystic ovarian syndrome) Fatty liver Dietary restriction Anxiety Low iron Gastric reflux Non-smoker Weight gain, abnormal Amenorrhea Biliary colic Anemia Anxiety, generalized IgA deficiency Non-celiac gluten sensitivity Malabsorption syndrome Metabolic syndrome Irritable bowel syndrome with diarrhea Abdominal pain GERD (gastroesophageal reflux disease) Sinusitis Gestational diabetes mellitus (GDM) COVID-19 Biliary dyskinesia Epigastric pain Acute hepatitis Pancytopenia Infectious mononucleosis Ovarian cyst Abnormal liver function tests Surgical History (Updated 03/20/24 @ 08:[address] Natasha Lindsey MD) Hx of colonoscopy H/O hemicolectomy History of cholecystectomy ( 04/2020) History of esophagogastroduodenoscopy (EGD) S/P appendectomy S/P ACL surgery S/P tonsillectomy Family History Grandmother Diabetes Father Hypertension Grandfather Cancer Sister Crohn's disease Social History Smoking Status: Never smoker alcohol intake: current details: occasionally substance use type: does not use caffeine: Yes Type: coffee what type of physical activity do you participate in: aerobics frequency: 5-6 times per week seatbelt use: always do you feel safe at home: Yes additional social history: -Martin HPI HPI Details: PROSPER HARRY, is a 33 F who presents to the office today for follow up. WSA established previously ? EGD 12.12.19 variable Zline 36cm; 1cm hiatal hernia; gastritis with friable mucosa. H.Pylori negative. ? Laparoscopic cholecystectomy 05.01.20 with lysis of adhesions. ? EGD and colonoscopy 06.12.22 EGD gastritis; esophagitis with EOE changes and >20 eosinophil presence. ? Colonoscopy internal hemorrhoids; end-to-end colo-colonic anastomosis. *BGI established 07.03.22 with previously diagnosed EOE managed with omeprazole 20mg QD and loose stools with FH Crohn???s disease. Start cholestyramine ? Biochemical CBC, ESR, CMP, LFT, CRP, LDH, ALOK comp, ANCA, GAME, INGRID, IBD without pertinent abnormality ? Stool calprotectin, elastase, c.difficile, EP, O/P, giardia WNL? Lactoferrin + ? US and elastography 08.25.22 hepatic measurement 16.1cm with fatty infiltration, stiffness 9.2kPa OV 09.01.22 with improvement of loose stools. Start ursodiol ? Biochemical triglycerides H211, LDL H42 ? Start Dupixent OV 03.01.23 for IBS, EOE, NAFLD follow up. Currently having difficulty with bloating, suspect SIBO, Start doxycycline. ? US and elastography 04.15.23 hepatic measurement 18.6cm with fatty infiltration, stiffness 4.4kPa Contact 04.21.23 with US/elastography update; continue current medications OV 08.30.23 feels she is doing well. Dupixent continues without difficulty. No swallowing issues. OV 02.28.24 OV 08.30.24 pt reports 1-2 loose bm daily for the past 1-2 months; endorses blood in stool, but states that she has a hx of hemorrhoids and is unsure is that's where the bleeding is coming from. Pt reports intermittent sharp abd pain, unable to pinpoint trigger. Pt notes gas and bloating even when she has not eaten anything. ROS Const Constitutional: No fatigue, fever(s) or weight change ENT ENT: No difficulty swallowing Gastro GI: Positive for abdominal pain, bloating, diarrhea, excessive flatus and Blo (more content not included)... Normal [facility] Calprotectin, Stoolon [address] 5 ug/g Normal 0-120 [facility] Comment on above: Result Comment: Conc entration Interpretation Follow-Up < 5 - 50 ug/g Normal None >50 -120 ug/g Borderline Re-evaluate in 4-6 weeks >120 ug/g Abnormal Repeat as clinically indicated Performed at: - [facility] [id number] Form Maker Plaster: Derrick Solis MD, Phone: [phone] Performed By: #### L 501.6710, L3410.9991, L500.4050, L100.0100, L101.9900, L504.1670 #### [facility] [address] [place], [place], [address] Decalcification bone/plaqueo n 08-14-2024 Decalcification bone/plaque Patient Age/Sex Location Account Attending Physician PROSPER HARRY 33/F [facility] [id number] Ludy Whitney DPM Specimen: [id number] Received: 08/14/24 Status: THEODOREGeorge Yamila Num: [id number] Spec Type: GANGLION Subm Dr: Ludy Whitney DPM HEADER OPERATION: Right arthroplasty of the distal interphalangeal joint of second digit, excision of ganglionic cyst of second digit PRE-OP DIAGNOSIS: Pain in right toe, ganglion, right ankle and foot TISSUE SUBMITTED: A- Right foot second digit ganglion cyst and skin edge, B- Middle phalanx second digit, right foot MICROSCOPIC DIAGNOSIS A. Right foot, second digit ganglion cyst and skin edge: Fragment of acral skin with digital mucous cyst. B. Middle phalanx second digit, right foot: Fragment of bone with overlying cartilage and minute fragment of attached soft tissue showing degenerative changes. PW. 08/16/2024 MICROSCOPIC DESCRIPTION Slides are reviewed. GROSS DESCRIPTION A. Received in fixative is one container labeled with the patient's name and designated Right foot second digit ganglion cyst and skin edge. The specimen consists of a piece of sam-white skin measuring 1.2 x 0.6 x 0.5cm. The specimen is inked, serially sectioned and submitted entirely in one cassette. B. Received in fixative is one container labeled with the patient's name and designated Middle phalanx second digit, right foot. The specimen consists of a piece of bone measuring 1.0 x 0.4 x 0.3cm. The specimen is bisected and submitted entirely in one cassette after decalcification. SJ. 08/15/2024 TC:5 CPT:11057u2,01010 Patient Age/Sex Location Account Attending Physician [id number] Ludy Whitney DPM Signed (signature on file) Dr. Mallorie Hardy MD 08/16/24 1219 Normal [facility] Comment on above: Performed By: #### L 501.6710, L3410.9998, L500.4050, L100.0100, L101.9900, L504.2610 #### [facility] [address] [place], [place], [address] CBC W/Diff, Automatedon 10-3 -2023 Absolute Lymph 2.13 X10 3/uL Normal 0.83-4.51 [facility] Comment on above: Order Comment: DR. FOWLER ORDERED CMP, CBCD Order Date: 07/07/24 Order Info: 0184-1 - CBCD Performed By: #### L 100.0100, L500.4050 #### [facility] [address] [place], [place], [id number] [phone] Absolute Neut 4.2 X10 3/uL Normal 2.0-7.7 [facility] Comment on above: Order Comment: DR. FOWLER ORDERED CMP, CBCD Order Date: 07/07/24 Order Info: 0184-1 - CBCD Performed By: #### L 100.0100, L500.4050 #### [facility] [address] [place], [address] Basophils/100 WBC (Bld) 0.4 % Normal 0-1 [facility] Comment on above: Order Comment: DR. FOWLER ORDERED CMP, CBCD Order Date: 07/07/24 Order Info: 183-10 - CBCD Performed By: #### L 100.0100, L500.4050 #### [facility] [address] [place], [address] Eosinophils/100 WBC (Bld) 1.4 % Normal 0-5 [facility] Comment on above: Order Comment: DR. FOWLER ORDERED CMP, CBCD Order Date: 07/07/24 Order Info: 183-10 - CBCD Performed By: #### L 100.0100, L500.4050 #### [facility] [address] [place], [address] Erythrocyte distribution width (RBC) [Ratio] 11.9 % Normal 11.6-14.6 [facility] Comment on above: Order Comment: DR. FOWLER ORDERED CMP, CBCD Order Date: 07/07/24 Order Info: 183-10 - CBCD Performed By: #### L 100.0100, L500.4050 #### [facility] [address] [place], [address] Hematocrit (Bld) [Volume fraction] 34.7 % Low 37-47 [facility] Comment on above: Order Comment: DR. FOWLER ORDERED CMP, CBCD Order Date: 07/07/24 Order Info: 183-10 - CBCD Performed By: #### L 100.0100, L500.4050 #### [facility] [address] [place], [address] Hemoglobin (Bld) [Mass/Vol] 11.5 g/dL Low 12.0-15.0 [facility] Comment on above: Order Comment: DR. FOWLER ORDERED CMP, CBCD Order Date: 07/07/24 Order Info: 183-10 - CBCD Performed By: #### L 100.0100, L500.4050 #### [facility] [address] [place], [address] IG% 0.300 Normal 0.0-0.9 [facility] Comment on above: Order Comment: DR. FOWLER ORDERED CMP, CBCD Order Date: 07/07/24 Order Info: 01801-09 - CBCD Result Comment: IG% - Immature Granulocytes (promyelocytes, myelocytes and metamyelocytes) > 1% indicates that a LEFT SHIFT is Present. Performed By: #### L 100.0100, L500.4050 #### [facility] [address] [place], [address] Lymphocytes/100 WBC (Bld) 30.6 % Normal 19-41 [facility] Comment on above: Order Comment: DR. FOWLER ORDERED CMP, CBCD Order Date: 07/07/24 Order Info: 01801-09 - CBCD Performed By: #### L 100.0100, L500.4050 #### [facility] [address] [place], [address] MCH (RBC) [Entitic mass] 29.1 pg Normal 27.0-32.0 [facility] Comment on above: Order Comment: DR. FOWLER ORDERED CMP, CBCD Order Date: 07/07/24 Order Info: 01801-09 - CBCD Performed By: #### L 100.0100, L500.4050 #### [facility] [address] [place], [address] MCHC (RBC) [Mass/Vol] 33.1 g/dL Normal 32-36 [facility] Comment on above: Order Comment: DR. FOWLER ORDERED CMP, CBCD Order Date: 07/07/24 Order Info: 01801-09 - CBCD Performed By: #### L 100.0100, L500.4050 #### [facility] [address] [place], [address] MCV (RBC) [Entitic vol] 87.8 fL Normal 81-99 [facility] Comment on above: Order Comment: DR. FOWLER ORDERED CMP, CBCD Order Date: 07/07/24 Order Info: 183- - CBCD Performed By: #### L 100.0100, L500.4050 #### [facility] [address] [place], [address] Monocytes/100 WBC (Bld) 7.5 % Normal 0-10 [facility] Comment on above: Order Comment: DR. FOWLER ORDERED CMP, CBCD Order Date: 07/07/24 Order Info: 183- - CBCD Performed By: #### L 100.0100, L500.4050 #### [facility] [address] [place], [address] Neutrophils/100 WBC (Bld) 59.8 % Normal 47-70 [facility] Comment on above: Order Comment: DR. FOWLER ORDERED CMP, CBCD Order Date: 07/07/24 Order Info: 183-10 - CBCD Performed By: #### L 100.0100, L500.4050 #### [facility] [address] [place], [address] Nucleated RBC (Bld) [#/Vol] 0 10*3/uL Normal 0-5 [facility] Comment on above: Order Comment: DR. FOWLER ORDERED CMP, CBCD Order Date: 07/07/24 Order Info: 183-10 - CBCD Performed By: #### L 100.0100, L500.4050 #### [facility] [address] [place], [address] Platelet mean volume (Bld) [Entitic vol] 10.1 fL Normal 6.2-12.0 [facility] Comment on above: Order Comment: DR. FOWLER ORDERED CMP, CBCD Order Date: 07/07/24 Order Info: 183-10 - CBCD Performed By: #### L 100.0100, L500.4050 #### [facility] [address] [place], [address] Platelets (Bld) [#/Vol] 270 10*3/uL Normal 150-450 [facility] Comment on above: Order Comment: DR. FOWLER ORDERED CMP, CBCD Order Date: 07/07/24 Order Info: 01801-09 - CBCD Performed By: #### L 100.0100, L500.4050 #### [facility] [address] [place], [address] RBC (Bld) [#/Vol] 3.95 10*6/uL Low 4.2-5.4 [facility] Comment on above: Order Comment: DR. FOWLER ORDERED CMP, CBCD Order Date: 07/07/24 Order Info: 01801-09 - CBCD Performed By: #### L 100.0100, L500.4050 #### [facility] [address] [place], [address] RDW SD 38.5 fl Normal 35.1-43.9 [facility] Comment on above: Order Comment: DR. FOWLER ORDERED CMP, CBCD Order Date: 07/07/24 Order Info: 01801-09 - CBCD Performed By: #### L 100.0100, L500.4050 #### [facility] [address] [place], [address] WBC (Bld) [#/Vol] 7.0 10*3/uL Normal 4.4-11.0 [facility] Comment on above: Order Comment: DR. FOWLER ORDERED CMP, CBCD Order Date: 07/07/24 Order Info: 01801-09 - CBCD Performed By: #### L 100.0100, L500.4050 #### [facility] [address] [place], [address] CRPon 08-10-2024 C-REACTIVE PROT < 2.90 Normal 0.0-3.0 [facility] Comment on above: Result Comment: C-Re active Protein (CRP) provides useful information for the diagnosis, therapy and monitoring of inflammatory processes and associated diseases. For the evaluation of Relative Risk for Cardiovascular Disease, a High Sensitivity CRP (HSCRP) should be ordered. Performed By: #### L 501.6710, L3410.9998, L500.4050, L100.0100, L101.9900, L504.2610 #### [facility] [address] [place], [address] Comprehensive Metabolic Prof ilon 08-10-2024 Albumin [Mass/Vol] 4.0 g/dL Normal 3.2-5.0 [facility] Comment on above: Order Comment: DR. Lesli ALBRIGHT ORDERED CMP, CBCD Order Date: 07/07/24 Order Info: 0786-1 - CMP Performed By: #### L 100.0100, L500.4050 #### [facility] [address] [place], [address] Albumin/Globulin [Mass ratio] 1.2 {ratio} Normal 0.9-2.4 [facility] Comment on above: Order Comment: DR. Lesli ALBRIGHT ORDERED CMP, CBCD Order Date: 07/07/24 Order Info: 0786-1 - CMP Performed By: #### L 100.0100, L500.4050 #### [facility] [address] [place], [address] ALK P 55 U/L Normal 45-117 [facility] Comment on above: Order Comment: DR. Lesli ALBRIGHT ORDERED CMP, CBCD Order Date: 07/07/24 Order Info: 0786-1 - CMP Performed By: #### L 100.0100, L500.4050 #### [facility] [address] [place], [address] ALT [Catalytic activity/Vol] 36 U/L Normal 13-56 [facility] Comment on above: Order Comment: DR. Lesli ALBRIGHT ORDERED CMP, CBCD Order Date: 07/07/24 Order Info: 0786-1 - CMP Performed By: #### L 100.0100, L500.4050 #### [facility] [address] [place], [address] AST [Catalytic activity/Vol] 14 U/L Low 15-37 [facility] Comment on above: Order Comment: DR. Lesli ALBRIGHT ORDERED CMP, CBCD Order Date: 07/07/24 Order Info: 785-10 - CMP Performed By: #### L 100.0100, L500.4050 #### [facility] [address] [place], [address] Bilirubin [Mass/Vol] 0.30 mg/dL Normal 0.20-1.[address] [facility] Comment on above: Order Comment: DR. Lesli ALBRIGHT ORDERED CMP, CBCD Order Date: 07/07/24 Order Info: 785-10 - CMP Result Comment: For patients on eltrombopag therapy, use of Dimension [place] TBIL is not recommended. Performed By: #### L 100.0100, L500.4050 #### [facility] [address] [place], [address] BUN/CRE 12.5 RATIO Normal 10-20 [facility] Comment on above: Order Comment: DR. Lesli ALBRIGHT ORDERED CMP, CBCD Order Date: 07/07/24 Order Info: 07 - CMP Performed By: #### L 100.0100, L500.4050 #### [facility] [address] [place], [address] CA,Total 8.6 mg/dL Normal 8.5-10.1 [facility] Comment on above: Order Comment: DR. Lesli ALBRIGHT ORDERED CMP, CBCD Order Date: 07/07/24 Order Info: 07 - CMP Performed By: #### L 100.0100, L500.4050 #### [facility] [address] [place], [address] Chloride [Moles/Vol] 105 mmol/L Normal 98-[address] [facility] Comment on above: Order Comment: DR. Lesli ALBRIGHT ORDERED CMP, CBCD Order Date: 07/07/24 Order Info: 07-1 - CMP Performed By: #### L 100.0100, L500.4050 #### [facility] [address] [place], [address] CO2 [Moles/Vol] 28.0 mmol/L Normal 21.0-32.0 [facility] Comment on above: Order Comment: DR. Lesli ALBRIGHT ORDERED CMP, CBCD Order Date: 07/07/24 Order Info: 07- - CMP Performed By: #### L 100.0100, L500.4050 #### [facility] [address] [place], [address] Creatinine [Mass/Vol] 0.80 mg/dL Normal 0.55-1.02 [facility] Comment on above: Order Comment: DR. Lesli ALBRIGHT ORDERED CMP, CBCD Order Date: 07/07/24 Order Info: 07 - CMP Result Comment: The validity of the calculated GFR GFRAA in patients over 70 years has not been determined. Clinical correlation is essential. Performed By: #### L 100.0100, L500.4050 #### [facility] [address] [place], [address] EST GFR - AA 107 mL/min Normal >60 [facility] Comment on above: Order Comment: DR. Lesli ALBRIGHT ORDERED CMP, CBCD Order Date: 07/07/24 Order Info: 07- - CMP Result Comment: Afri can Maldivian GFR Calc Performed By: #### L 100.0100, L500.4050 #### [facility] [address] [place], [address] GAP 4 Low 5-15 [facility] Comment on above: Order Comment: DR. Lesli ALBRIGHT ORDERED CMP, CBCD Order Date: 07/07/24 Order Info: 07-1 - CMP Performed By: #### L 100.0100, L500.4050 #### [facility] [address] [place], [address] GFR/1.73 sq M.predicted among non-blacks MDRD (S/P/Bld) [Vol rate/Area] 88 mL/min/{1.73_m2} Normal >60 [facility] Comment on above: Order Comment: DR. Lesli ALBRIGHT ORDERED CMP, CBCD Order Date: 07/07/24 Order Info: 0786-1 - CMP Result Comment: Non- GFR Calc Performed By: #### L 100.0100, L500.4050 #### [facility] [address] [place], [address] Globulin (S) [Mass/Vol] 3.2 g/dL Normal 2.2-4.2 [facility] Comment on above: Order Comment: DR. Lesli ALBRIGHT ORDERED CMP, CBCD Order Date: 07/07/24 Order Info: 0786- - CMP Performed By: #### L 100.0100, L500.4050 #### [facility] [address] [place], [address] Glucose [Mass/Vol] 101 mg/dL Normal 74-106 [facility] Comment on above: Order Comment: DR. Lesli ALBRIGHT ORDERED CMP, CBCD Order Date: 07/07/24 Order Info: 0786-1 - CMP Result Comment: Fast ing Glucose result from 100 to 125 mg/dL suggests IMPAIRED HOMEOSTASIS per A.D.A. criteria. Performed By: #### L 100.0100, L500.4050 #### [facility] [address] [place], [address] Potassium [Moles/Vol] 3.8 mmol/L Normal 3.5-5.1 [facility] Comment on above: Order Comment: DR. Lesli ALBRIGHT ORDERED CMP, CBCD Order Date: 07/07/24 Order Info: 0786-1 - CMP Performed By: #### L 100.0100, L500.4050 #### [facility] [address] [place], [address] Sodium [Moles/Vol] 137 mmol/L Normal 136-145 [facility] Comment on above: Order Comment: DR. Lesli ALBRIGHT ORDERED CMP, CBCD Order Date: 07/07/24 Order Info: 07 - CMP Performed By: #### L 100.0100, L500.4050 #### [facility] [address] [place], [address] T PROT 7.2 g/dL Normal 6.4-8.2 [facility] Comment on above: Order Comment: DR. Lesli ALBRIGHT ORDERED CMP, CBCD Order Date: 07/07/24 Order Info: 785-10 - CMP Performed By: #### L 100.0100, L500.4050 #### [facility] [address] [place], [address] Urea nitrogen [Mass/Vol] 10 mg/dL Normal 7-18 [facility] Comment on above: Order Comment: DR. Lesli ALBRIGHT ORDERED CMP, CBCD Order Date: 07/07/24 Order Info: 785-10 - CMP Performed By: #### L 100.0100, L500.4050 #### [facility] [address] [place], [address] Erythrocyte Sed Rateon 08-10 SED RATE < 1 Normal 0-30 [facility] Comment on above: Performed By: #### L 501.6710, L3410.9998, L500.4050, L100.0100, L101.9900, L504.2610 #### [facility] [address] [place], [address] Laboratory - Chemistry and C hemistry - challengeOrdered By: Cy De Los Santos on 12-01-2023 HCG ( test) Ql (U) Negative [facility] Comment on above: Very dilute urine sp ecimens, as indicated by a low specificgravity, may not contain termite control service representative levels of hCG. If is still suspected, a first morning urinespecimen should be collected 48 hours later and tested. Clostridioides difficile nuc leic acid assay by PCROrdered By: Samuel Nunez on 11-23-2023 C. difficile DNA FARIDEH+probe Ql (Unsp spec) [facility] No Panel InformationOrdered By: Samuel Nunez on 11-23-2023 Giardia Antigen (JB) [facility] Stool Calprotectin 44 ug/g 0-120 [facility] Comment on above: Concentration Interp retation Follow-Up< 5 - 50 ug/g Normal None>50 -120 ug/g Borderline Re-evaluate in 4-6 weeks >120 ug/g Abnormal Repeat as clinically indicatedPerformed at: [facility] [id number] Director: Derrick Solis MD, Phone: [phone] Giardia Antigen (JB) [facility] Ova and parasitesOrdered By: Samuel Nunez on 11-23-2023 Ova and parasites identified LM Nom (Unsp spec) [facility] Ova and parasites identified LM Nom (Unsp spec) [facility] Stool enteric pathogen panel by probe and target amplification methodOrdered By: Samuel Nunez on 11-23-2023 Gastrointestinal pathogens panel FARIDEH+probe (Stl) [facility] Stool lactoferrin detection by immunoassayOrdered By: Samuel Nunez on 11-23-2023 Lactoferrin IA Ql (Stl) [facility] Stool pancreatic elastase me asurement (mass/mass)Ordered By: Samuel Nunez on 11-23-2023 Elastase.pancreatic (Stl) [Mass/Mass] 301 >200 [facility] Comment on above: Result Units: ug Maya st./g Severe Pancreatic Insufficiency: <100 Moderate Pancreatic Insufficiency: 100 - 200 Normal: >200Performed at: [facility] [address] [id number] Director: Derrick Solis MD, Phone: [phone] Absolute lymphocyte countOrd ered By: Ambreen Lyn on 11-08-2023 Lymphocytes Auto (Unsp spec) [#/Vol] 2.40 10*3/uL 0.83-4.51 [facility] [facility] Automated lymphocyte count a s percentage of total leukocytesOrdered By: Ambreen Lyn on 11-08-2023 Lymphocytes/100 WBC Auto (Unsp spec) 34.8 % 19-41 [facility] Basophil percentageOrdered B y: Ambreen Lyn on 11-08-2023 Basophils/100 WBC (Bld) 0.6 % 0-1 [facility] Bilirubin [Mass/Vol] 0.30 mg/dL 0.20-1.[address] [facility] Comment on above: For patients on eltr ombopag therapy, use of Dimension [place]ridge TBIL is not recommended. Chloride [Moles/Vol] 108 mmol/L 98-[address] [facility] Eosinophils/100 WBC (Bld) 1.2 % 0-5 [facility] Glucose [Mass/Vol] 106 mg/dL 74-106 [facility] Comment on above: Fasting Glucose resu lt from 100 to 125 mg/dL suggests IMPAIRED HOMEOSTASIS per A.D.A. criteria. Hemoglobin (Bld) [Mass/Vol] 12.1 g/dL 12.0-15.0 [facility] Monocytes/100 WBC (Bld) 8.4 % 0-10 [facility] Neutrophils (Bld) [#/Vol] 3.8 10*3/uL 2.0-7.7 [facility] Neutrophils/100 WBC (Bld) 54.7 % 47-70 [facility] Potassium [Moles/Vol] 3.6 mmol/L 3.5-5.1 [facility] Protein [Mass/Vol] 7.5 g/dL 6.4-8.2 [facility] Sodium [Moles/Vol] 138 mmol/L 136-145 [facility] WBC (Bld) [#/Vol] 6.9 10*3/uL 4.4-11.0 [facility] Determination of erythrocyte mean corpuscular volume (MCV)Ordered By: Ambreen Lyn on 11-08-2023 MCV (RBC) [Entitic vol] 86.2 fL 81-99 [facility] Erythrocyte distribution wid th ratioOrdered By: Ambreen Lyn on 11-08-2023 Erythrocyte distribution width (RBC) [Ratio] 12.3 % 11.6-14.6 [facility] Erythrocyte distribution wid th standard deviationOrdered By: Ambreen Lyn on 11-08-2023 Erythrocyte distribution width (RBC) [Entitic vol] 38.7 fL 35.1-43.9 [facility] Erythrocyte sedimentation ra teOrdered By: Ambreen Lyn on 11-08-2023 ESR (Bld) [Velocity] mm/h 0-[address] [facility] Hematocrit Auto (Bld) [Volum e fraction]Ordered By: Ambreen Lyn on 11-08-2023 Hematocrit (Bld) [Volume fraction] 36.7 % 37-47 [facility] Immature granulocytes/100 WB C Auto (Bld)Ordered By: Ambreen Lyn on 11-08-2023 Immature granulocytes/100 WBC (Bld) 0.300 % 0.0-0.9 [facility] Comment on above: IG% - Immature Granu locytes (promyelocytes, myelocytes and metamyelocytes) > 1% indicates that a LEFT SHIFT is Present. Laboratory - Chemistry and C hemistry - challengeOrdered By: Ambreen Lyn on 11-08-2023 Albumin/Globulin [Mass ratio] 1.3 {ratio} 0.9-2.4 [facility] ALP [Catalytic activity/Vol] 53 U/L 45-117 [facility] ALT [Catalytic activity/Vol] 31 U/L 13-56 [facility] CO2 [Moles/Vol] 27.0 mmol/L 21.0-32.0 [facility] Globulin (S) [Mass/Vol] 3.3 g/dL 2.2-4.2 [facility] Urea nitrogen/Creatinine [Mass ratio] 13.3 mg/mg 10-20 [facility] Laboratory - Hematology and Cell countsOrdered By: Ambreen Lyn on 11-08-2023 MCH (RBC) [Entitic mass] 28.4 pg 27.0-32.0 [facility] MCHC (RBC) [Mass/Vol] 33.0 g/dL 32-36 [facility] Nucleated RBC/100 WBC (Bld) [Ratio] 0 % 0-5 [facility] Platelets (Bld) [#/Vol] 339 10*3/uL 150-450 [facility] No Panel InformationOrdered By: Ambreen Lyn on 11-08-2023 C-Reactive Protein Extended Range < 2.90 mg/L 0.0-3.0 [facility] Comment on above: C-Reactive Protein ( CRP) provides useful information for thediagnosis, therapy and monitoring of inflammatory processesand associated diseases. For the evaluation of Relative Riskfor Cardiovascular Disease, a High Sensitivity CRP (HSCRP)should be ordered. Estimated GFR (MDRD) Amer 103 mL/min >60 [facility] Comment on above: GFR Calc Estimated GFR (MDRD) Non-Af Amer 86 mL/min >60 [facility] Comment on above: Non- GFR Calc Platelet mean volume Lauri-Ec ker (Bld) [Entitic vol]Ordered By: Ambreen Lyn on 11-08-2023 Platelet mean volume (Bld) [Entitic vol] 10.7 fL 6.2-12.0 [facility] RBC Auto (Bld) [#/Vol]Ordere d By: Ambreen Lyn on 11-08-2023 RBC (Bld) [#/Vol] 4.26 10*6/uL 4.2-5.4 [facility] Serum or plasma calcium nadine urement (mass/volume)Ordered By: Ambreen Lyn on 11-08-2023 Calcium [Mass/Vol] 8.9 mg/dL 8.5-10.1 [facility] Serum or plasma creatinine m easurement (mass/volume)Ordered By: Ambreen Lyn on 11-08-2023 Creatinine [Mass/Vol] 0.82 mg/dL 0.55-1.02 [facility] Comment on above: The validity of the calculated GFR & GFRAA in patients over 70 years has not been determined. Clinical correlation is essential. Serum or plasma urea nitroge n measurement (mass/volume)Ordered By: Ambreen Lyn on 11-08-2023 Urea nitrogen [Mass/Vol] 11 mg/dL 7-18 [facility] Thin prep Papanicolaou smear with manual screeningOrdered By: Ambreen Lyn on 11-08-2023 Thin prep Papanicolaou smear with manual screening 4.2 g/dL 3.2-5.0 [facility] Thin prep Papanicolaou smear with manual screening 15 U/L 15-37 [facility] Thin prep Papanicolaou smear with manual screening 3 5-15 [facility] Laboratory - Chemistry and C hemistry - challengeOrdered By: Ambreen Yun on 09-15-2023 HCG ( test) Ql (U) Negative [facility] Comment on above: Very dilute urine sp ecimens, as indicated by a low specificgravity, may not contain termite control service representative levels of hCG. If is still suspected, a first morning urinespecimen should be collected 48 hours later and tested. Basophil percentageOrdered B y: Shayna Lyon on 08-30-2023 Bilirubin [Mass/Vol] 0.20 mg/dL 0.20-1.[address] [facility] Comment on above: For patients on eltr ombopag therapy, use of Dimension [place] TBIL is not recommended. Chloride [Moles/Vol] 106 mmol/L 98-[address] [facility] Cholesterol [Mass/Vol] 167 mg/dL <200 [facility] Comment on above: <200 mg/dL Desirable 200-240 mg/dL Borderline >240 mg/dL High Risk Glucose [Mass/Vol] 95 mg/dL 74-106 [facility] Potassium [Moles/Vol] 4.0 mmol/L 3.5-5.1 [facility] Protein [Mass/Vol] 7.6 g/dL 6.4-8.2 [facility] Sodium [Moles/Vol] 138 mmol/L 136-145 [facility] Triglyceride [Mass/Vol] 186 mg/dL <199 [facility] Comment on above: The drugs N-Acetylcy steine and Metamizole may falsely depress this assay.Serum Triglycerides Reference Interval Normal <150 mg/dL Borderline high 150 - 199 mg/dL High 200 - 499 mg/dL Very High > or = 500 mg/dL Laboratory - Chemistry and C hemistry - challengeOrdered By: Shayna Lyon on 08-30-2023 ALP [Catalytic activity/Vol] 55 U/L 45-117 [facility] ALT [Catalytic activity/Vol] 34 U/L 13-56 [facility] CO2 [Moles/Vol] 27.0 mmol/L 21.0-32.0 [facility] Globulin (S) [Mass/Vol] 3.3 g/dL 2.2-4.2 [facility] Urea nitrogen/Creatinine [Mass ratio] 9.9 mg/mg 07-30 [facility] No Panel InformationOrdered By: Shayna Lyon on 08-30-2023 Estimated GFR (MDRD) Amer 106 mL/min >60 [facility] Comment on above: GFR Calc Estimated GFR (MDRD) Non-Af Amer 87 mL/min >60 [facility] Comment on above: Non- GFR Calc No Panel InformationOrdered By: Samuel Nunez on 08-30-2023 Miscellaneous Test See comment [facility] Comment on above: TEST RESULTS LIMITSC eliac Disease HLA DQ Assoc.DQ2 (DQA1 0501/0505,CRS338TM) PositiveDQ8 (DQA1 03XX, DQB1 0302) NegativeFinal Results:DQB1*02:EENIURKA02:EENUGDQA1*02:JEAN MARIE05:EEMXYCode Translation:EEMXY 05:01:15N/05:18:19:2305:2705:33 05:35/05:38/05:4005:41:47:4905:52 /05:54Q/05:55/05:5605:5705:61EENUF 02:01/02:03/02:07/:08:09:14::53Q/02:59/02:63/02:72/02:83/02:93 /02:96N/02:98/02:99/02:102/02:105/02:106 /02:107/02:108/02:109/02:111/02:112/02:114 /02:115/02:118/02:119/02:123/02:125/02:128 /02:130/02:132N/02:134N/02:135/02:136 /02:148/02:149/02:152/02:155/02:157/02:158 /02:159/02:160/02:163N/02:164/02:170 /02:174/02:182/02:184/02:185/02:186/02:188 /02:189/02:190/02:191/02:193/02:196/02:197 /02:198/02:202EENUG 02:02/02:11/02:12/02:20N/02:26/02:50/02:62 /02:65/02:71/02:80/02:84/02:89/02:95/02:97 /02:110/02:113/02:116/02:117/02:120/02:122 /02:124/02:126/02:127/02:131/02:137/02:138 /02:142/02:143/02:145/02:146/02:147/02:150 /02:153/02:156/02:161/02:162N/02:165 /02:167N/02:171Q/02:172/02:175/02:176N /02:179/02:183N/02:187/02:194N/02:199 /02:200/02:201/02:203/02:204NEESCV ////////14/15/16/// ////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 Celiac Disease risk from the HLA DQA/DQBgenotype is approximately 1:10 (10%)Allele interpretation for all loci based on IMGT/HLAdatabase version 3.49.0Log[facility] HospitalIA ID Number [id number] than 95% of celiac patients are positive for either DQ2 or DQ8 (Criselda and Bin, (1993) Gastroenterology 105:910-922). However these antigens may also be present in patients who do not have Celiac disease.Comment: This test was performed using Polymerase Chain Reaction (PCR) and Sequence Specific Oligonucleotide Probes (SSOP) ([employer]) technique. Sequence Based Typing (SBT) may be used as a supplemental method when necessary.If you have questions, please call HLA customer service [facility] [place]. or email at [email or web address].Additional Information: References:1. Rahul CUADRA and Merlin Oates. Celiac Disease. N Eng J Med 2007; 357:9914-6303.2. Ld F, Kina B, Bonajbo M et al. HLA-DQ and risk gradient for celiac disease. Hum Immunol 2009; 70:55-59.3. Piefranny MM, [place] TC, Milo FM et al. Stratifying risk for celiac disease in a large at-risk [facility] population by using HLA alleles. Clin Gastroenterol Hepatol 2009; 7:966-971.4. Criselda ROCHA and Tequila BA. (2005). Celiac Disease Genetics: Current Concepts and Practical Applications. Clin Gastroenterol and Hepat 3:843-851.5. Amrit CL, Bryant DO, Rahul CUADRA, et al. Celiac Disease. In: Donald RA, Isaias TC, Jorje CR, Mariama K, editors. Publicate), [facility] [place], e, April 12, 2008:1-27. http://www.ncbi.nlm.nih.gov/bookshelf/br.fcgi?book=genepart=ce [facility] PMID [id number] (PubMed)6. Hola Malik. Emerging concepts in celiac disease. Curr Opin Pediatr 2004;16:552-559. TESTING PERFORMED AT [facility]. ORIGINAL REPORT ON FILE IN LAB CONTAINS ADDITIONAL TEST SITE INFORMATION. Serum or plasma albumin nadine urement (mass/volume)Ordered By: Shayna Lyon on 08-30-2023 Albumin [Mass/Vol] 4.3 g/dL 3.2-5.0 [facility] Serum or plasma albumin/glob ulin mass ratioOrdered By: Shayna Camron on 08-30-2023 Albumin/Globulin [Mass ratio] 1.3 {ratio} 0.9-2.4 [facility] Serum or plasma calcium nadine urement (mass/volume)Ordered By: Shayna Lyon on 08-30-2023 Calcium [Mass/Vol] 8.7 mg/dL 8.5-10.1 [facility] Serum or plasma cholesterol in HDL measurement (mass/volume)Ordered By: [facility] on 08-30-2023 Cholesterol in HDL [Mass/Vol] 46 mg/dL >40 [facility] Comment on above: The drugs N-Acetylcy steine and Metamizole may falsely depress this assay. Reference Range HDL <40 mg/dL Low HDL Cholesterol HDL >or= 60 mg/dL High HDL Cholesterol Serum or plasma cholesterol in VLDL measurement (mass/volume)Ordered By: Shayna Camron on 08-30-2023 Cholesterol in VLDL [Mass/Vol] 37 mg/dL 5-40 [facility] Serum or plasma creatinine m easurement (mass/volume)Ordered By: [facility] on 08-30-2023 Creatinine [Mass/Vol] 0.81 mg/dL 0.55-1.02 [facility] Comment on above: The validity of the calculated GFR & GFRAA in patients over 70 years has not been determined. Clinical correlation is essential. Serum or plasma low density lipoprotein (LDL) cholesterol measurement (mass/volume)Ordered By: Shayna Rejiintermount[facility] medical centergrazyna on 08-30-2023 Cholesterol in LDL [Mass/Vol] 84 mg/dL 0-130 [facility] Serum or plasma urea nitroge n measurement (mass/volume)Ordered By: [facility] on 08-30-2023 Urea nitrogen [Mass/Vol] 8 mg/dL 7-18 [facility] Thin prep Papanicolaou smear with manual screeningOrdered By: Shayna Camron on 08-30-2023 Thin prep Papanicolaou smear with manual screening 17 U/L 15-37 [facility] Thin prep Papanicolaou smear with manual screening 5 5-15 [facility] Cervical or vagninal specime n microscopic examination by cytology stain (reported asOrdered By: Dr. Lindsey on 03-11-2023 Cytology report Cyto stain Doc (Cvx/Vag) Comment . [facility] Comment on above: The Pap smear is a s creening test designed to aid in thedetection of premalignant and malignant conditions of theuterine cervix. It is not a diagnostic procedure andshould not be used as the sole means of detecting cervicalcancer. Both false-positive and false-negative reports dooccur. Detection in cervical specim en of any of human papilloma virus (HPV) 16, 18, 31, 33,Ordered By: Dr. Lindsey on 03-11-2023 HPV 16+18+31+33+35+39+45+51 +52+56+58+59+66+68 DNA Probe+sig amp Ql (Cvx) Negative Negative [facility] Comment on above: This nucleic acid am plification test detects fourteen high-risk HPV types (16,18,31,33,35,39,45,51,52,56,58,59,66,68)without differentiation. Laboratory - CytologyOrdered By: Dr. Lindsey on 03-11-2023 Reheater Helper Cyto stain Nom (Cvx/Vag) [ID] Comment . [facility] Comment on above: Michel lucoi Christian Counselor (ASCP) Laboratory - Miscellaneous t estsOrdered By: Dr. Lindsey on 03-11-2023 Service comment (Unsp spec) [Interp] Comment . [facility] Comment on above: This liquid based Th inPrep(R) pap test was screened withthe use of an image guided system. Service comment (Unsp spec) [Interp] . . [facility] Liquid-based cerv Pap + CT/G C by FARIDEH w reflex to high-risk HPV for ASCUSOrdered By: Dr. Lindsey on 03-11-2023 Cytology report Cyto stain.thin prep Doc (Cvx/Vag) Comment . [facility] Comment on above: Criteria not met, HP V Genotype not performed.Performed at: [address] [id number] Director: Erma Dee MD, Phone: [phone] at: =G - [facility] [address] [place] [id number] Director: Erma Dee MD, Phone: [phone] No Panel InformationOrdered By: Dr. Lindsey on 03-11-2023 Pathology report final diagnosis Narrative Comment . [facility] Comment on above: NEGATIVE FOR INTRAEP ITHELIAL LESION OR MALIGNANCY. Follicle Stimulating Hormone 6.6 mIU/mL [facility] Comment on above: NORMAL REFERENCE RAN GES FEMALE FOLLICULAR 2.3 - 12.6 mIU/mL MID-CYCLE PEAK 5.2 - 17.5 mIU/mL LUTEAL 1.7 - 12.9 mIU/mL POST-MENOPAUSAL ON MHT 5.9 - 72.8 mIU/mL NOT ON MHT 12.7 - 132.2 mlU/mL MALE 0.7 - 10.8 mIU/mL Thyroid Stimulating Hormone (TSH) 0.84 uIU/mL 0.358-3.74 [facility] Serum or plasma estradiol (E 2) measurement (mass/volume)Ordered By: Dr. Lindsey on 03-11-2023 E2 [Mass/Vol] 54.9 pg/mL [facility] Comment on above: NORMAL REFERENCE RAN GES FEMALE FOLLICULAR 21.4 - 164.8 pg/mL MID-CYCLE PEAK 49.9 - 367.2 pg/mL LUTEAL 40.2 - 259.0 pg/mL POST-MENOPAUSAL ON MHT <11.0 - 462.1 pg/mL NOT ON MHT <11.0 - 58.3 pg/mL MALE <11.0 - 52.5 pg/mL NOTE:[employer] HAS CONFIRMED THE DRUG FULVETRANT (FASLODEX) MAY CAUSE FALSELY ELEVATED ESTRADIOL RESULTS WHEN USING THIS TEST METHOD. IF PATIENT IS TAKING FULVESTRANT AN ALTERNATIVE METHOD SHOULD BE USED TO DETERMINE ESTRADIOL CONCENTRATION. Absolute lymphocyte countOrd ered By: Dr. Lyn on 01-26-2023 Lymphocytes Auto (Unsp spec) [#/Vol] 1.86 10*3/uL 0.83-4.51 [facility] Basophil percentageOrdered B y: Dr. Lyn on 01-26-2023 Basophils/100 WBC (Bld) 0.5 % 0-1 [facility] Bilirubin [Mass/Vol] 0.30 mg/dL 0.20-1.[address] [facility] Comment on above: For patients on eltr ombopag therapy, use of Dimension [place]ridge TBIL is not recommended. Chloride [Moles/Vol] 105 mmol/L 98-[address] [facility] Eosinophils/100 WBC (Bld) 1.5 % 0-5 [facility] Glucose [Mass/Vol] 86 mg/dL 74-106 [facility] Neutrophils (Bld) [#/Vol] 3.4 10*3/uL 2.0-7.7 [facility] Neutrophils/100 WBC (Bld) 58.0 % 47-70 [facility] Potassium [Moles/Vol] 3.7 mmol/L 3.5-5.1 [facility] Protein [Mass/Vol] 7.6 g/dL 6.4-8.2 [facility] Sodium [Moles/Vol] 135 mmol/L 136-145 [facility] WBC (Bld) [#/Vol] 5.9 10*3/uL 4.4-11.0 [facility] Blood erythrocytes count (nu mber/volume)Ordered By: Dr. Lyn on 01-26-2023 RBC (Bld) [#/Vol] 4.32 10*6/uL 4.2-5.4 [facility] Blood hemoglobin measurement (mass/volume)Ordered By: Dr. Lyn on 01-26-2023 Hemoglobin (Bld) [Mass/Vol] 12.4 g/dL 12.0-15.0 [facility] Blood lymphocytes/100 leukoc ytesOrdered By: Dr. Lyn on 01-26-2023 Lymphocytes/100 WBC (Bld) 31.6 % 19-41 [facility] Blood monocytes/100 leukocyt esOrdered By: Dr. Lyn on 01-26-2023 Monocytes/100 WBC (Bld) 8.2 % 0-10 [facility] Blood platelet mean volumeOr dered By: Dr. Lyn on 01-26-2023 Platelet mean volume (Bld) [Entitic vol] 10.9 fL 6.2-12.0 [facility] Determination of erythrocyte mean corpuscular volume (MCV)Ordered By: Dr. Lyn on 01-26-2023 MCV (RBC) [Entitic vol] 87.7 fL 81-99 [facility] Erythrocyte sedimentation ra teOrdered By: Dr. Lyn on 01-26-2023 ESR (Bld) [Velocity] 1 mm/h 0-[address] [facility] Hematocrit Auto (Bld) [Volum e fraction]Ordered By: Dr. Lyn on 01-26-2023 Hematocrit (Bld) [Volume fraction] 37.9 % 37-47 [facility] Laboratory - Chemistry and C hemistry - challengeOrdered By: Dr. Lyn on 01-26-2023 ALP [Catalytic activity/Vol] 56 U/L 45-117 [facility] ALT [Catalytic activity/Vol] 36 U/L 13-56 [facility] CO2 [Moles/Vol] 25.0 mmol/L 21.0-32.0 [facility] Globulin (S) [Mass/Vol] 3.3 g/dL 2.2-4.2 [facility] Urea nitrogen/Creatinine [Mass ratio] 17.6 mg/mg 10-20 [facility] Laboratory - Hematology and Cell countsOrdered By: Dr. Lyn on 01-26-2023 Erythrocyte distribution width (RBC) [Entitic vol] 41.1 fL 35.1-43.9 [facility] Erythrocyte distribution width (RBC) [Ratio] 12.8 % 11.6-14.6 [facility] Immature granulocytes/100 WBC (Bld) 0.200 % 0.0-0.9 [facility] Comment on above: IG% - Immature Granu locytes (promyelocytes, myelocytes and metamyelocytes) > 1% indicates that a LEFT SHIFT is Present. MCH (RBC) [Entitic mass] 28.7 pg 27.0-32.0 [facility] Nucleated RBC/100 WBC (Bld) [Ratio] 0 % 0-5 [facility] MCHC Auto (RBC) [Mass/Vol]Or dered By: Dr. Lyn on 01-26-2023 MCHC (RBC) [Mass/Vol] 32.7 g/dL 32-36 [facility] No Panel InformationOrdered By: Dr. Lyn on 01-26-2023 Estimated GFR (MDRD) Amer 129 mL/min >60 [facility] Comment on above: GFR Calc Estimated GFR (MDRD) Non-Af Amer 107 mL/min >60 [facility] Comment on above: Non- GFR Calc Platelets bldOrdered By: Dr. Lyn on 01-26-2023 Platelets (Bld) [#/Vol] 294 10*3/uL 150-450 [facility] Serum or plasma C reactive p rotein measurement (mass/volume)Ordered By: Dr. Lyn on 01-26-2023 CRP [Mass/Vol] mg/L 0.0-3.0 [facility] Comment on above: C-Reactive Protein ( CRP) provides useful information for thediagnosis, therapy and monitoring of inflammatory processesand associated diseases. For the evaluation of Relative Riskfor Cardiovascular Disease, a High Sensitivity CRP (HSCRP)should be ordered. Serum or plasma albumin nadine urement (mass/volume)Ordered By: Dr. Lyn on 01-26-2023 Albumin [Mass/Vol] 4.3 g/dL 3.2-5.0 [facility] Serum or plasma albumin/glob ulin mass ratioOrdered By: Dr. Lyn on 01-26-2023 Albumin/Globulin [Mass ratio] 1.3 {ratio} 0.9-2.4 [facility] Serum or plasma calcium nadine urement (mass/volume)Ordered By: Dr. Lyn on 01-26-2023 Calcium [Mass/Vol] 8.9 mg/dL 8.5-10.1 [facility] Serum or plasma creatinine m easurement (mass/volume)Ordered By: Dr. Lyn on 01-26-2023 Creatinine [Mass/Vol] 0.68 mg/dL 0.55-1.02 [facility] Comment on above: The validity of the calculated GFR & GFRAA in patients over 70 years has not been determined. Clinical correlation is essential. Serum or plasma urea nitroge n measurement (mass/volume)Ordered By: Dr. Lyn on 01-26-2023 Urea nitrogen [Mass/Vol] 12 mg/dL 18 [facility] Thin prep Papanicolaou smear with manual screeningOrdered By: Dr. Lyn on 01-26-2023 Thin prep Papanicolaou smear with manual screening 15 U/L 15-37 [facility] Thin prep Papanicolaou smear with manual screening 5 5-15 [facility] Basophil percentageon 2021 Cholesterol [Mass/Vol] 194 mg/dL <200 [facility] Work Phone: Comment on above: <200 mg/dL Desirable 200-240 mg/dL Borderline >240 mg/dL High Risk Triglyceride [Mass/Vol] 211 mg/dL <199 [facility] Work Phone: Comment on above: The drugs N-Acetylcy steine and Metamizole may falsely depress this assay.Serum Triglycerides Reference Interval Normal <150 mg/dL Borderline high 150 - 199 mg/dL High 200 - 499 mg/dL Very High > or = 500 mg/dL Serum or plasma cholesterol in HDL measurement (mass/volume)on 09-10-2022 Cholesterol in HDL [Mass/Vol] 44 mg/dL >40 [facility] Work Phone: Comment on above: The drugs N-Acetylcy steine and Metamizole may falsely depress this assay. Reference Range HDL <40 mg/dL Low HDL Cholesterol HDL >or= 60 mg/dL High HDL Cholesterol Serum or plasma cholesterol in VLDL measurement (mass/volume)on 09-10-2022 Cholesterol in VLDL [Mass/Vol] 42 mg/dL 5-40 [facility] Work Phone: Serum or plasma low density lipoprotein (LDL) cholesterol measurement (mass/volume)on 09-10-2022 Cholesterol in LDL [Mass/Vol] 108 mg/dL 0-130 [facility] Work Phone: No Panel Informationon 07-04 Stool Calprotectin <16 ug/g 0-120 [facility] Work Phone: Comment on above: Concentration Interp retation Follow-Up<16 - 50 ug/g Normal None>50 -120 ug/g Borderline Re-evaluate in 4-6 weeks >120 ug/g Abnormal Repeat as clinically indicatedPerformed at: [facility] [address] [id number] Director: Cem Howell PhD, Phone: [phone] at: [facility] [id number] Director: Derrick Solis MD, Phone: [phone] Stool Neutral Fats Normal . [facility] Work Phone: Comment on above: Normal (<60 Droplets /HPF) Stool Pancreatic Elastase > 500 >200 [facility] Work Phone: Comment on above: Result Units: ug Maya st./g Severe Pancreatic Insufficiency: <100 Moderate Pancreatic Insufficiency: 100 - 200 Normal: >200Performed at: [facility] [id number] Director: Derrick Solis MD, Phone: [phone] Qualitative fecal fat or lip idson 07-04-2022 Fat Ql (Stl) Normal . [facility] Work Phone: Comment on above: Normal (<100 Droplet s/HPF) Absolute lymphocyte counton 07-03-2022 Lymphocytes Auto (Unsp spec) [#/Vol] 2.28 10*3/uL 0.83-4.51 [facility] Work Phone: Atypical perinuclear antineu trophil cytoplasmic antibodies measurementon 07-03-2022 Neutrophil cytoplasmic Ab.perinuclear.atypical IF (S) [Titer] <1:20 titer Neg:<1:20 [facility] Work Phone: Comment on above: The atypical pANCA p attern has been observed in asignificant percentage of patients with ulcerative colitis,primary sclerosing cholangitis and autoimmune hepatitis.Performed at: [employer] [id number] Director: Cem Howell PhD, Phone: [phone] at: [facility] [address] [id number] Director: Derrick Solis MD, Phone: [phone] Basophil percentageon 2021 Basophil percentage < 0.2 AI 0.0-0.9 [facility] Work Phone: Basophils/100 WBC (Bld) 0.8 % 0-1 [facility] Work Phone: Bilirubin [Mass/Vol] 0.30 mg/dL 0.20-1.00 [facility] Work Phone: Comment on above: For patients on eltr ombopag therapy, use of Dimension [place] TBIL is not recommended. Chloride [Moles/Vol] 106 mmol/L 98-107 [facility] Work Phone: Eosinophils/100 WBC (Bld) 2.0 % 0-5 [facility] Work Phone: Glucose [Mass/Vol] 96 mg/dL 74-106 [facility] Work Phone: Neutrophils (Bld) [#/Vol] 3.0 10*3/uL 2.0-7.7 [facility] Work Phone: Neutrophils/100 WBC (Bld) 49.2 % 47-70 [facility] Work Phone: Potassium [Moles/Vol] 3.8 mmol/L 3.5-5.1 [facility] Work Phone: Protein [Mass/Vol] 7.4 g/dL 6.4-8.2 [facility] Work Phone: Sodium [Moles/Vol] 138 mmol/L 136-145 [facility] Work Phone: WBC (Bld) [#/Vol] 6.0 10*3/uL 4.4-11.0 [facility] Work Phone: Blood erythrocytes count (nu mber/volume)on 07-03-2022 RBC (Bld) [#/Vol] 4.10 10*6/uL 4.2-5.4 [facility] Work Phone: Blood hemoglobin measurement (mass/volume)on 07-03-2022 Hemoglobin (Bld) [Mass/Vol] 12.0 g/dL 12.0-15.0 [facility] Work Phone: Blood lymphocytes/100 leukoc yteson 07-03-2022 Lymphocytes/100 WBC (Bld) 37.8 % 19-41 [facility] Work Phone: Blood monocytes/100 leukocyt eson 07-03-2022 Monocytes/100 WBC (Bld) 10.0 % 0-10 [facility] Work Phone: [phone] Blood platelet mean volumeon 07-03-2022 Platelet mean volume (Bld) [Entitic vol] 10.1 fL 6.2-12.0 [facility] Work Phone: [phone] Determination of erythrocyte mean corpuscular volume (MCV)on 07-03-2022 MCV (RBC) [Entitic vol] 88.5 fL 81-99 [facility] Work Phone: Erythrocyte sedimentation ra justin 07-03-2022 ESR (Bld) [Velocity] 2 mm/h 0-30 [facility] Work Phone: Hematocrit Auto (Bld) [Volum e fraction]on 07-03-2022 Hematocrit (Bld) [Volume fraction] 36.3 % 37-47 [facility] Work Phone: Interpretation of serum or p lasma protein pattern by immunofixation (narrative resulton 07-03-2022 Protein Fractions Immunofixation Tutu [Interp] See comment [facility] Work Phone: Comment on above: Not Observed Laboratory - Chemistry and C hemistry - challengeon 07-03-2022 ALP [Catalytic activity/Vol] 49 U/L 45-117 [facility] Work Phone: ALT [Catalytic activity/Vol] 33 U/L 13-56 [facility] Work Phone: [phone] CO2 [Moles/Vol] 27.0 mmol/L 21.0-32.0 [facility] Work Phone: [phone] Globulin (S) [Mass/Vol] 3.4 g/dL 2.2-4.2 [facility] Work Phone: [phone] Urea nitrogen/Creatinine [Mass ratio] 11.8 mg/mg 10-20 [facility] Work Phone: Laboratory - Hematology and Cell countson 07-03-2022 Erythrocyte distribution width (RBC) [Entitic vol] 38.5 fL 35.1-43.9 [facility] Work Phone: Erythrocyte distribution width (RBC) [Ratio] 12.0 % 11.6-14.6 [facility] Work Phone: Immature granulocytes/100 WBC (Bld) 0.200 % 0.0-0.9 [facility] Work Phone: Comment on above: IG% - Immature Granu locytes (promyelocytes, myelocytes and metamyelocytes) > 1% indicates that a LEFT SHIFT is Present. MCH (RBC) [Entitic mass] 29.3 pg 27.0-32.0 [facility] Work Phone: Nucleated RBC/100 WBC (Bld) [Ratio] 0 % 0-5 [facility] Work Phone: MCHC Auto (RBC) [Mass/Vol]on 07-03-2022 MCHC (RBC) [Mass/Vol] 33.1 g/dL 32-36 [facility] Work Phone: No Panel Informationon 07-03 Addendum Document Comment . [facility] Work Phone: Comment on above: Protein electrophore sis scan will follow via computer,mail, or director global strategic publisher sales delivery. [facility] B Antibody <0.2 AI 0.0-0.9 [facility] Work Phone: Estimated GFR (MDRD) Amer 130 mL/min >60 [facility] Work Phone: Comment on above: GFR Calc Estimated GFR (MDRD) Non-Af Amer 108 mL/min >60 [facility] Work Phone: Comment on above: Non- GFR Calc Immunoglobulin E 21 IU/mL 6-495 [facility] Work Phone: Miscellaneous Test See comment [facility] Work Phone: Comment on above: TEST RESULT LIMITSIB D Expanded PanelgASCA 41 units 0-50 Negative <45 Equivocal 45 - 50 Positive >50ACCA 11 units 0-90 Negative <80 Equivocal 80 - 90 Positive >90ALCA 23 units 0-60 Negative <55 Equivocal 55 - 60 Positive >60AMCA 74 units 0-100 Negative < 90 Equivocal 90 - 100 Positive >100 This test was developed and its performance characteristics determined by [facility]. It has not been cleared or approved by the Food and Drug Administration. The FDA has determined that such clearance or approval is not necessary.Atypical pANCA Negative NegativeCommentsPattern is not suggestive of Inflammatory Bowel Disease. ___ TESTING PERFORMED AT [facility]. ORIGINAL REPORT ON FILE IN LAB CONTAINS ADDITIONAL TEST SITE INFORMATION. COMPENSATION ASSOCIATE Antibody 0.2 AI 0.0-0.9 [facility] Work Phone: Platelets bldon 07-03-2022 Platelets (Bld) [#/Vol] 293 10*3/uL 150-450 [facility] Work Phone: Serum DNA double strand anti body assay (units/volume)on 07-03-2022 DNA double strand Ab Qn (S) [IU]/mL 0-9 [facility] Work Phone: Comment on above: Negative <5 Equivoca l 5 - 9 Positive >9 Serum Franca-1 antibody assay (u nits/volume)on 07-03-2022 Franca-1 extractable nuclear Ab Qn (S) <0.2 AI 0.0-0.9 [facility] Work Phone: Serum Scl-70 extractable nuc lear antibody assay (units/volume)on 07-03-2022 SCL-70 extractable nuclear Ab Qn (S) <0.2 AI 0.0-0.9 [facility] Work Phone: Serum Lyn extractable nucl ear antibody detectionon 09-23-2022 Lyn extractable nuclear Ab Ql (S) <0.2 AI 0.0-0.9 [facility] Work Phone: Serum tevqz-1-wwbzskft measu rement by electrophoresison 07-03-2022 Alpha 1 globulin Elph [Mass/Vol] 0.2 g/dL 0.0-0.4 [facility] Work Phone: Alpha 1 globulin Elph [Mass/Vol] 0.7 g/dL 0.4-1.0 [facility] Work Phone: Serum classic neutrophil cyt oplasmic antibody assay (units/volume)on 07-03-2022 Neutrophil cytoplasmic Ab.classic Qn (S) <1:20 titer Neg:<1:20 [facility] Work Phone: Serum globulin measurement ( mass/volume)on 07-03-2022 Globulin (S) [Mass/Vol] 2.8 g/dL 2.2-3.9 [facility] Work Phone: Serum or plasma C reactive p rotein measurement (mass/volume)on 07-03-2022 CRP [Mass/Vol] mg/L 0.0-3.0 [facility] Work Phone: Comment on above: C-Reactive Protein ( CRP) provides useful information for thediagnosis, therapy and monitoring of inflammatory processesand associated diseases. For the evaluation of Relative Riskfor Cardiovascular Disease, a High Sensitivity CRP (HSCRP)should be ordered. Serum or plasma IgA measurem ent (mass/volume)on 07-03-2022 IgA [Mass/Vol] 43 mg/dL 87-352 [facility] Work Phone: Comment on above: Result confirmed on concentration. Serum or plasma IgG measurem ent (mass/volume)on 07-03-2022 IgG [Mass/Vol] 844 mg/dL [phone] [facility] Work Phone: Serum or plasma IgM measurem ent (mass/volume)on 07-03-2022 IgM [Mass/Vol] 100 mg/dL 26-217 [facility] Work Phone: Serum or plasma albumin nadine urement (mass/volume)on 07-03-2022 Albumin [Mass/Vol] 4.0 g/dL 2.9-4.4 [facility] Work Phone: Serum or plasma albumin/glob ulin mass ratioon 07-03-2022 Albumin/Globulin [Mass ratio] 1.2 {ratio} 0.9-2.4 [facility] Work Phone: Serum or plasma beta globuli n measurement by electrophoresis (mass/volume)on 07-03-2022 Beta globulin Elph [Mass/Vol] 1.0 g/dL 0.7-1.3 [facility] Work Phone: Serum or plasma calcium nadine urement (mass/volume)on 07-03-2022 Calcium [Mass/Vol] 8.4 mg/dL 8.5-10.1 [facility] Work Phone: Serum or plasma creatinine m easurement (mass/volume)on 07-03-2022 Creatinine [Mass/Vol] 0.68 mg/dL 0.55-1.02 [facility] Work Phone: Comment on above: The validity of the calculated GFR & GFRAA in patients over 70 years has not been determined. Clinical correlation is essential. Serum or plasma gamma globul in measurement by electrophoresis (mass/volume)on 07-03-2022 Gamma globulin Elph [Mass/Vol] 0.9 g/dL 0.4-1.8 [facility] Work Phone: Serum or plasma immunoelectr ophoresis interpretation (nominal result)on 07-03-2022 Interpretation IEP [Interp] Comment . [facility] Work Phone: Comment on above: No monoclonality det ected. Serum or plasma urea nitroge n measurement (mass/volume)on 07-03-2022 Urea nitrogen [Mass/Vol] 8 mg/dL 7-18 [facility] Work Phone: Serum perinuclear neutrophil cytoplasmic antibody titer by immunofluorescenceon 07-03-2022 Neutrophil cytoplasmic Ab.perinuclear IF (S) [Titer] <1:20 titer Neg:<1:20 [facility] Work Phone: Comment on above: The presence of posi tive fluorescence exhibiting P-ANCA orC-ANCA patterns alone is not specific for the diagnosis ofWegener's Granulomatosis (WG) or microscopic polyangiitis.Decisions about treatment should not be based solely onANCA IFA results. The [employer] Consensusrecommends follow up testing of positive sera with both IN-3 and MPO-ANCA enzyme immunoassays. As many as 5% serumsamples are positive only by EIA. Ref. AM J Clin [id number];111:[id number]. Thin prep Papanicolaou smear with manual screeningon 07-03-2022 Thin prep Papanicolaou smear with manual screening 12 U/L 15-37 [facility] Work Phone: Thin prep Papanicolaou smear with manual screening 5 5-15 [facility] Work Phone: Thin prep Papanicolaou smear with manual screening 169 U/L 84-246 [facility] Work Phone: Thin prep Papanicolaou smear with manual screening 1.5 0.7-1.7 [facility] Work Phone: Total protein [facility] 2021 Protein [Mass/Vol] 6.8 g/dL 6.0-8.5 [facility] Work Phone: Chocolate [facility] 06-29-2022 Chocolate IgE Qn (S) <0.10 kU/L Class [address] [facility] Work Phone: Comment on above: Performed at: - L [address] [id number] Director: Derrick Solis MD, Phone: [phone] Laboratory - Miscellaneous t estson 06-29-2022 Service comment (Unsp spec) [Interp] Comment . [facility] Work Phone: Comment on above: Levels of Specific I gE Class Description of Class ----- < 0.10 0 Negative 0.10 - 0.31 0/I Equivocal/Low 0.32 - 0.55 I Low 0.56 - 1.40 II Moderate 1.41 - 3.90 III High 3.91 - 19.00 IV Very High 19.01 - 100.00 V Very High >100.00 Very High No Panel Informationon 06-29 [employer] Allergens (RAST) Negative . [facility] Work Phone: Comment on above: Allergens in this mi x are: Blue mussel Fish Oxford Shrimp Tuna Serum beef IgE antibody assa y (units/volume)on 06-29-2022 Beef IgE Qn (S) <0.10 kU/L Class 0 [facility] Work Phone: Serum corn IgE antibody assa y (units/volume)on 06-29-2022 Corona IgE Qn (S) <0.10 kU/L Class 0 [facility] Work Phone: Serum cow milk IgE antibody assay (units/volume)on 06-29-2022 Cow milk IgE Qn (S) <0.10 kU/L Class 0 [facility] Work Phone: Serum peanut IgE antibody as say (units/volume)on 06-29-2022 Peanut IgE Qn (S) <0.10 kU/L Class 0 [facility] Work Phone: Serum pork IgE antibody assa y (units/volume)on 06-29-2022 Pork IgE Qn (S) <0.10 kU/L Class 0 [facility] Work Phone: Serum soybean IgE antibody a ssay (units/volume)on 06-29-2022 Soybean IgE Qn (S) <0.10 kU/L Class 0 [facility] Work Phone: Serum wheat IgE antibody ass ay (units/volume)on 06-29-2022 Wheat IgE Qn (S) <0.10 kU/L Class 0 [facility] Work Phone: Serum whole egg IgE antibody assay (units/volume)on 06-29-2022 Whole Egg IgE Qn (S) <0.10 kU/L Class [address] [facility] Work Phone: Laboratory - Chemistry and C hemistry - challengeon 06-12-2022 HCG ( test) Ql (U) Negative [facility] Work Phone: Comment on above: Very dilute urine sp ecimens, as indicated by a low specificgravity, may not contain termite control service representative levels of hCG. If is still suspected, a first morning urinespecimen should be collected 48 hours later and tested. Clostridium difficile detect ion by polymerase chain reaction C. difficile DNA FARIDEH+probe Ql (Unsp spec) [facility] Work Phone: EP Panel Gastrointestinal pathogens panel FARIDEH+probe (Stl) [facility] Work Phone: No Panel Information Enteric Bacteriology [facility] Work Phone: Stool lactoferrin detection by immunoassay Lactoferrin IA Ql (Stl) [facility] Work Phone: Vital Signs Date Time Vital Sign Value Performing Clinician Facility 05-07-2025 13:24-0400 Body height 167.[address] Ambreen Lyn MD Work Phone: [facility] 05-07-2025 13:24-0400 Body mass index (BMI) [Ratio] 25.9 kg/m2 Dr. Ambreen Lyn MD Work Phone: [facility] 05-07-2025 13:24-0400 Body weight 72.[address] Ambreen Lyn MD Work Phone: [facility] 05-07-2025 13:24-0400 Diastolic blood pressure 79 mm[Hg] Dr. Ambreen Lyn MD Work Phone: [facility] 05-07-2025 13:24-0400 Systolic blood pressure 129 mm[Hg] Dr. Ambreen Lyn MD Work Phone: [facility] 01-03-2025 14:16-0400 Body height 167.[address] Ambreen Lyn MD Work Phone: [facility] 01-03-2025 14:12-0400 Body mass index (BMI) [Ratio] 28.5 kg/m2 Dr. Ambreen Lyn MD Work Phone: [facility] 01-03-2025 14:12-0400 Body weight 80.[address] Ambreen Lyn MD Work Phone: [facility] 01-03-2025 14:12-0400 Diastolic blood pressure 82 mm[Hg] Dr. Ambreen Lyn MD Work Phone: [facility] 01-03-2025 14:12-0400 Systolic blood pressure 124 mm[Hg] Dr. Ambreen Lyn MD Work Phone: 7(014)511-920792 [address] 11-15-2024 12:59-0500 Body height 167.[address] Ambreen Lyn MD Work Phone: 7(690)252-335792 [address] 11-15-2024 12:59-0500 Body mass index (BMI) [Ratio] 28.8 kg/m2 Dr. Ambreen Lyn MD Work Phone: 0(397)845-706496 [place] [address] 11-15-2024 12:59-0500 Body weight 81.[address] Ambreen Lyn MD Work Phone: [facility] 11-15-2024 12:59-0500 Diastolic blood pressure 83 mm[Hg] Dr. Ambreen Lyn MD Work Phone: [facility] 11-15-2024 12:59-0500 Heart rate 94 /min Dr. Ambreen Lyn MD Work Phone: [facility] 11-15-2024 12:59-0500 Respiratory rate 14 /min Dr. Ambreen Lyn MD Work Phone: [facility] 11-15-2024 12:59-0500 Systolic blood pressure 125 mm[Hg] Dr. Ambreen Lyn MD Work Phone: [facility] 10-27-2024 13:10-0500 Body height 167.6 cm [facility] Work Phone: [facility] 10-27-2024 13:10-0500 Body mass index (BMI) [Ratio] 27.44 kg/m2 Alla Jhawar DO Work Phone: [facility] 10-27-2024 13:10-0500 Body weight 77.11 kg Alla Jhawar DO Work Phone: [facility] 10-27-2024 13:10-0500 Diastolic blood pressure 80 mm[Hg] Alla Jhawar DO Work Phone: [facility] 10-27-2024 13:10-0500 Heart rate 97 /min Alla Jhawar DO Work Phone: [facility] 10-27-2024 13:10-0500 Systolic blood pressure 143 mm[Hg] Alla Jhawar DO Work Phone: [facility] 10-23-2024 13:15-0500 Diastolic blood pressure 83 mm[Hg] Dr. Ambreen Lyn MD Work Phone: [facility] 10-23-2024 13:15-0500 Systolic blood pressure 129 mm[Hg] Dr. Ambreen Lyn MD Work Phone: [facility] 10-23-2024 12:30-0500 Heart rate 99 /min Dr. Ambreen Lyn MD Work Phone: [facility] 10-23-2024 12:30-0500 Respiratory rate 18 /min Dr. Ambreen Lyn MD Work Phone: [facility] 10-23-2024 12:30-0500 SaO2% (BldA) [Mass fraction] 96 % Dr. Ambreen Lyn MD Work Phone: [facility] 10-23-2024 10:26-0500 Body mass index (BMI) [Ratio] 25.8 kg/m2 Dr. Ambreen Lyn MD Work Phone: [facility] 10-23-2024 10:26-0500 Body weight 72.[address] Ambreen Lyn MD Work Phone: 0(362)562-176034 [place] [address] 09-11-2024 07:25-0500 Body temperature 97 [degF] Dr. Ambreen Lyn MD Work Phone: 8(340)239-504934 [place] [address] 09-11-2024 07:25-0500 Diastolic blood pressure 76 mm[Hg] Dr. Ambreen Lyn MD Work Phone: 6(302)251-957834 [place] [address] 09-11-2024 07:25-0500 Heart rate 105 /min Dr. Ambreen Lyn MD Work Phone: 9(464)626-315034 [place] [address] 09-11-2024 07:25-0500 Respiratory rate 16 /min Dr. Ambreen Lyn MD Work Phone: 2(678)216-521134 [place] [address] 09-11-2024 07:25-0500 SaO2% (BldA) [Mass fraction] 100 % Dr. Ambreen Lyn MD Work Phone: 6(010)326-922434 [place] [address] 09-11-2024 07:25-0500 Systolic blood pressure 113 mm[Hg] Dr. Ambreen Lyn MD Work Phone: 2(948)939-668034 [place] [address] 09-11-2024 05:49-0500 Body mass index (BMI) [Ratio] 25.9 kg/m2 Dr. Ambreen Lyn MD Work Phone: 0(081)957-059634 [place] [address] 09-11-2024 05:49-0500 Body weight [address] Ambreen Lyn MD Work Phone: 9(489)816-455034 [place] [address] 09-09-2024 08:52-0500 Body temperature 98.4 [degF] Dr. Ambreen Lyn MD Work Phone: 5(649)083-262334 [place] [address] 09-09-2024 08:52-0500 Heart rate 60 /min Dr. Ambreen Lyn MD Work Phone: 3(313)494-915634 [place] [address] 09-09-2024 08:52-0500 Respiratory rate 16 /min Dr. Ambreen Lyn MD Work Phone: 1(009)646-079334 [place] [address] 09-09-2024 08:52-0500 SaO2% (BldA) [Mass fraction] 98 % Dr. Ambreen Lyn MD Work Phone: 2(224)986-415434 [place] [address] 01-03-2024 09:51-0400 Body height 167.[address] Ambreen Lyn Work Phone: [facility] 01-03-2024 09:51-0400 Body mass index (BMI) [Ratio] 26.6 kg/m2 Dr. Ambreen Lyn Work Phone: [facility] 01-03-2024 09:51-0400 Body temperature 97.8 [degF] Dr. Ambreen Lyn Work Phone: [facility] 01-03-2024 09:51-0400 Body weight 74.[address] Ambreen Lyn Work Phone: [facility] 01-03-2024 09:51-0400 Diastolic blood pressure 82 mm[Hg] Dr. Ambreen Lyn Work Phone: [facility] 01-03-2024 09:51-0400 Heart rate 105 /min Dr. Ambreen Lyn Work Phone: [facility] 01-03-2024 09:51-0400 Respiratory rate 16 /min Dr. Ambreen Lyn Work Phone: [facility] 01-03-2024 09:51-0400 SaO2% (BldA) [Mass fraction] 98 % Dr. Ambreen Lyn Work Phone: [facility] 01-03-2024 09:51-0400 Systolic blood pressure 122 mm[Hg] Dr. Ambreen Lyn Work Phone: [facility] 12-01-2023 11:19-0500 Body temperature 97.2 [degF] Dr. Ambreen Lyn Work Phone: [facility] 12-01-2023 11:19-0500 Diastolic blood pressure 63 mm[Hg] Dr. Ambreen Lyn Work Phone: [facility] 12-01-2023 11:19-0500 Heart rate 73 /min Dr. Ambreen Lyn Work Phone: [facility] 12-01-2023 11:19-0500 Respiratory rate 16 /min Dr. Ambreen Lyn Work Phone: [facility] 12-01-2023 11:19-0500 SaO2% (BldA) [Mass fraction] 100 % Dr. Ambreen Lyn Work Phone: [facility] 12-01-2023 11:19-0500 Systolic blood pressure 105 mm[Hg] Dr. Ambreen Lyn Work Phone: [facility] 12-01-2023 09:46-0500 Body height 167.[address] Ambreen Lyn Work Phone: [facility] 12-01-2023 09:46-0500 Body mass index (BMI) [Ratio] 26.3 kg/m2 Dr. Ambreen Lyn Work Phone: 1(194)416-997992 [address] 12-01-2023 09:46-0500 Body weight [address] Ambreen Lyn Work Phone: 8(973)944-805392 [address] 09-15-2023 11:20-0500 Body temperature 97 [degF] Dr. Ambreen Lyn Work Phone: 4(684)599-134296 [place] [address] 09-15-2023 11:20-0500 Diastolic blood pressure 80 mm[Hg] Dr. Ambreen Lyn Work Phone: 0(871)864-114192 [address] 09-15-2023 11:20-0500 Heart rate 89 /min Dr. Ambreen Lyn Work Phone: 0(241)959-228196 [place] [address] 09-15-2023 11:20-0500 Respiratory rate 16 /min Dr. Ambreen Lyn Work Phone: [facility] 09-15-2023 11:20-0500 SaO2% (BldA) [Mass fraction] 100 % Dr. Ambreen Lyn Work Phone: [facility] 09-15-2023 11:20-0500 Systolic blood pressure 116 mm[Hg] Dr. Ambreen Lyn Work Phone: 3(333)846-078696 [place] [address] 09-15-2023 09:24-0500 Body height 167.[address] Ambreen Lyn Work Phone: 8(551)613-485892 [address] 09-15-2023 09:24-0500 Body mass index (BMI) [Ratio] 27 kg/m2 Dr. Ambreen Lyn Work Phone: [facility] 09-15-2023 09:24-0500 Body weight [address] Ambreen Lyn Work Phone: [facility] 09-09-2023 11:07-0500 Body mass index (BMI) [Ratio] 25.8 kg/m2 Dr. Ambreen Lyn Work Phone: [facility] 09-09-2023 11:07-0500 Body temperature 98 [degF] Dr. Ambreen Lyn Work Phone: [facility] 09-09-2023 11:07-0500 Body weight 72.[address] Ambreen Lyn Work Phone: 6(980)484-769496 [place] [address] 09-09-2023 11:07-0500 Diastolic blood pressure 91 mm[Hg] Dr. Ambreen Lyn Work Phone: [facility] 09-09-2023 11:07-0500 Heart rate 84 /min Dr. Ambreen Lyn Work Phone: 3(064)988-135796 [place] [address] 09-09-2023 11:07-0500 Respiratory rate 16 /min Dr. Ambreen Lyn Work Phone: [facility] 09-09-2023 11:07-0500 SaO2% (BldA) [Mass fraction] 97 % Dr. Ambreen Lyn Work Phone: [facility] 09-09-2023 11:07-0500 Systolic blood pressure 127 mm[Hg] Dr. Ambreen Lyn Work Phone: [facility] 09-07-2023 12:39-0500 Body mass index (BMI) [Ratio] 25.8 kg/m2 Dr. Ambreen Lyn Work Phone: [facility] 09-07-2023 12:39-0500 Body temperature 98.4 [degF] Dr. Ambreen Lyn Work Phone: [facility] 09-07-2023 12:39-0500 Body weight 72.[address] Ambreen Lyn Work Phone: [facility] 09-07-2023 12:39-0500 Diastolic blood pressure 85 mm[Hg] Dr. Ambreen yLn Work Phone: [facility] 09-07-2023 12:39-0500 Heart rate 108 /min Dr. Ambreen Lyn Work Phone: 2(584)719-231196 [place] [address] 09-07-2023 12:39-0500 Respiratory rate 16 /min Dr. Ambreen Lyn Work Phone: 6(979)416-878096 [place] [address] 09-07-2023 12:39-0500 SaO2% (BldA) [Mass fraction] 98 % Dr. Ambreen Lyn Work Phone: 6(801)062-848096 [place] [address] 09-07-2023 12:39-0500 Systolic blood pressure 145 mm[Hg] Dr. Ambreen Lyn Work Phone: 7(660)160-528092 [address] 03-11-2023 11:05-0400 Body height 167.[address] Ambreen Lyn Work Phone: 1(685)841-754692 [address] 03-11-2023 11:03-0400 Body mass index (BMI) [Ratio] 27 kg/m2 Dr. Ambreen Lyn Work Phone: 7(465)912-911192 [address] 03-11-2023 11:03-0400 Body weight 75.[address] Ambreen Lyn Work Phone: 0(292)333-549896 [address] [place] [address] 03-11-2023 11:03-0400 Diastolic blood pressure 79 mm[Hg] Dr. Ambreen Lyn Work Phone: [phone] [place] [address] 03-11-2023 11:03-0400 Systolic blood pressure 131 mm[Hg] Dr. Ambreen Lyn Work Phone: [phone] [place] [address] 03-01-2023 13:50-0400 Body mass index (BMI) [Ratio] 27.1 kg/m2 Dr. Ambreen Lyn Work Phone: 2(047)[phone] [place] [address] 03-01-2023 13:50-0400 Body weight 76.[address] Ambreen Lyn Work Phone: [facility] 03-01-2023 13:50-0400 Diastolic blood pressure 81 mm[Hg] Dr. Ambreen Lyn Work Phone: [facility] 03-01-2023 13:50-0400 Heart rate 74 /min Dr. Ambreen Lyn Work Phone: [facility] 03-01-2023 13:50-0400 SaO2% (BldA) [Mass fraction] 98 % Dr. Ambreen Lyn Work Phone: [facility] 03-01-2023 13:50-0400 Systolic blood pressure 125 mm[Hg] Dr. Ambreen Lyn Work Phone: [facility] 02-15-2023 09:57-0400 Body temperature 97.59 [degF] Madison Juan Ramonaugh PA-C Work Phone: [facility] 02-15-2023 09:57-0400 Body weight 77.11 kg Madison Slabaugh PA-C Work Phone: [facility] 02-15-2023 09:57-0400 Diastolic blood pressure 67 mm[Hg] Madison Slabaugh PA-C Work Phone: [facility] 02-15-2023 09:57-0400 Heart rate 94 /min Madison Slabaugh PA-C Work Phone: [facility] 02-15-2023 09:57-0400 SaO2% (BldA) [Mass fraction] 100 % Madison Slabaugh PA-C Work Phone: [facility] 02-15-2023 09:57-0400 Systolic blood pressure 115 mm[Hg] Madison Slabaugh PA-C Work Phone: [facility] 01-03-2023 11:15-0400 Body temperature 98.5 [degF] Dr. Ambreen Lyn Work Phone: [facility] 01-03-2023 11:15-0400 Body weight 77.[address] Ambreen Lyn Work Phone: [facility] 01-03-2023 11:15-0400 Diastolic blood pressure 76 mm[Hg] Dr. Ambreen Lyn Work Phone: [facility] 01-03-2023 11:15-0400 Heart rate 103 /min Dr. Ambreen Lyn Work Phone: [facility] 01-03-2023 11:15-0400 Systolic blood pressure 120 mm[Hg] Dr. Ambreen Lyn Work Phone: [facility] 08-21-2022 11:37-0500 Body height 167.[address] Ambreen Lyn Work Phone: [facility] Work Phone: 08-21-2022 11:37-0500 Body mass index (BMI) [Ratio] 26.4 kg/m2 Dr. Ambreen Lyn Work Phone: [facility] Work Phone: 08-21-2022 11:37-0500 Body temperature 97.2 [degF] Dr. Ambreen Lyn Work Phone: [facility] Work Phone: 08-21-2022 11:37-0500 Body weight 74.[address] Ambreen Lyn Work Phone: [facility] Work Phone: 08-21-2022 11:37-0500 Diastolic blood pressure 70 mm[Hg] Dr. Ambreen Lyn Work Phone: [facility] Work Phone: 08-21-2022 11:37-0500 Heart rate 116 /min Dr. Ambreen Lyn Work Phone: [facility] Work Phone: 08-21-2022 11:37-0500 Respiratory rate 16 /min Dr. Ambreen Lyn Work Phone: [facility] Work Phone: 08-21-2022 11:37-0500 SaO2% (BldA) [Mass fraction] 98 % Dr. Ambreen Lyn Work Phone: [facility] Work Phone: 08-21-2022 11:37-0500 Systolic blood pressure 112 mm[Hg] Dr. Ambreen Lyn Work Phone: [facility] Work Phone: 06-12-2022 11:00-0400 Body temperature 98.1 [degF] Dr. Ambreen Lyn Work Phone: [facility] Work Phone: 06-12-2022 11:00-0400 Diastolic blood pressure 72 mm[Hg] Dr. Ambreen Lyn Work Phone: [facility] Work Phone: 06-12-2022 11:00-0400 Heart rate 78 /min Dr. Ambreen Lyn Work Phone: [facility] Work Phone: 06-12-2022 11:00-0400 Respiratory rate 16 /min Dr. Ambreen Lyn Work Phone: [facility] Work Phone: 06-12-2022 11:00-0400 SaO2% (BldA) [Mass fraction] 100 % Dr. Ambreen Lny Work Phone: [facility] Work Phone: 06-12-2022 11:00-0400 Systolic blood pressure 105 mm[Hg] Dr. Ambreen Lyn Work Phone: [facility] Work Phone: 06-12-2022 09:01-0400 Body height 167.[address] Ambreen Lyn Work Phone: [facility] Work Phone: 06-12-2022 09:01-0400 Body mass index (BMI) [Ratio] 25.7 kg/m2 Dr. Ambreen Lyn Work Phone: [facility] Work Phone: 06-12-2022 09:01-0400 Body weight 72.[address] Ambreen Lyn Work Phone: [facility] Work Phone: 06-09-2022 15:00-0400 Body mass index (BMI) [Ratio] 26.3 kg/m2 Dr. Ambreen Lyn Work Phone: [facility] Work Phone: 06-09-2022 15:00-0400 Body temperature 98.2 [degF] Dr. Ambreen Lyn Work Phone: [facility] Work Phone: 06-09-2022 15:00-0400 Body weight 73.[address] Ambreen Lyn Work Phone: [facility] Work Phone: 06-09-2022 15:00-0400 Diastolic blood pressure 87 mm[Hg] Dr. Ambreen Lyn Work Phone: [facility] Work Phone: 06-09-2022 15:00-0400 Heart rate 90 /min Dr. Ambreen Lyn Work Phone: [facility] Work Phone: 06-09-2022 15:00-0400 Respiratory rate 18 /min Dr. Ambreen Lyn Work Phone: [facility] Work Phone: 06-09-2022 15:00-0400 SaO2% (BldA) [Mass fraction] 100 % Dr. Ambreen Lyn Work Phone: [facility] Work Phone: 06-09-2022 15:00-0400 Systolic blood pressure 131 mm[Hg] Dr. Ambreen Lyn Work Phone: [facility] Work Phone: Encounters Encounter Date Encounter Type Care Provider Facility Start: 06-08-2025 End: 06-08-[address] [facility] Start: 06-08-2025 End: 06-08-[address] Zara Lr MD -Laboratory [place] Work Phone: Start: 06-08-2025 End: 06-08-2025 ambulatory Ambreen Lyn Facility:[facility] Start: 05-17-2025 End: 05-17-2025 ambulatory AMBREEN LYN Facility:[facility] Start: 05-07-2025 Encounter for gynecological examination (general) (routine) with abnormal findings Natasha Lindsey [facility] Start: 05-07-2025 End: 05-07-[address] Natasha Lidnsey MD -[facility] Work Phone: Start: 05-07-2025 End: 05-07-[address] Natasha Lindsey MD [facility] Start: 05-07-2025 End: 05-07-[address] Ambreen Lyn MD Work Phone: -[facility] Start: 02-12-2025 End: 02-12-[address] Ambreen Lyn MD Work Phone: [facility] Work Phone: Start: 02-12-2025 End: 02-12-[address] Zara Lr MD -Laboratory, [place] Work Phone: Start: 02-12-2025 End: 02-12-2025 ambulatory Ambreen Lyn Facility:[facility] Start: 01-16-2025 End: 01-16-2025 Subsequent hospital visit by physician [facility] Work Phone: Radiology Comment on above: Pain in joint, multi ple sites [M25.50] Start: 01-16-2025 End: 01-16-2025 ambulatory AMBREEN LYN Facility:[facility] Start: 01-16-2025 End: 01-16-2025 ambulatory THANH MONREAL Facility:[facility] Start: 01-16-2025 End: 01-16-2025 Patient encounter procedure Shayy Story MD Work Phone: [facility] Comment on above: Pain in joint, multi ple sites (Primary Dx); Vitamin D deficiency; Inflammatory arthritis Start: 01-16-2025 End: 01-16-2025 Telemedicine consultation with patient Shayy Story MD Work Phone: [facility] Start: 01-03-2025 End: 01-03-2025 Patient encounter procedure Uma Alejandro NP-[place] -[facility] Work Phone: Start: 01-03-2025 End: 01-03-[address] Ambreen Lyn MD Work Phone: [facility] Work Phone: Start: 01-03-2025 End: 01-03-2025 ambulatory Ambreen Lyn Facility:[facility] Start: 12-15-2024 End: 12-15-[address] Ambreen Lyn MD Work Phone: [facility] Work Phone: Start: 12-15-2024 End: 12-15-2024 Patient encounter procedure Samuel Nunez DO -Laboratory Work Phone: Start: 12-14-2024 End: 12-14-2024 Patient encounter procedure Samuel Nunez DO -[facility] Work Phone: Start: 12-14-2024 End: 12-15-2024 ambulatory Samuel Nunez Facility:[facility] Start: 12-13-2024 End: 12-13-[address] Ambreen Lyn MD Work Phone: [facility] Work Phone: Start: 12-13-2024 End: 12-13-2024 Patient encounter procedure Samuel Nunez DO -Laboratory Work Phone: Start: 12-13-2024 End: 12-13-2024 ambulatory Sameul Nunez Facility:[facility] Start: 11-22-2024 End: 11-22-2024 Patient encounter procedure Samuel Enrique -Nuclear Medicine, [facility] Work Phone: Start: 11-22-2024 End: 11-22-2024 ambulatory Samuel Nunez Facility:[facility] Start: 11-15-2024 End: 11-15-[address] Chi Cordon MD -[facility] Work Phone: Start: 11-15-2024 End: 11-15-2024 ambulatory Ambreen Lyn Facility:[facility] Start: 10-27-2024 End: 10-27-2024 [facility] [place] [facility] [place] Start: 10-27-2024 End: 10-27-2024 Patient encounter procedure Alla Jhoneiloscar Work Phone: [place] [facility] [place] Comment on above: Celiac disease (Prim peg Dx); Crohn's disease of small intestine without complication (HCC); Eosinophilic esophagitis; Fatty liver Start: 10-27-2024 ambulatory Afsaneh Gaitan Facility:[facility] Start: 10-27-2024 Non-patient / Non-visit Dr. Afsaneh Gaitan MD -[facility] Start: 10-27-2024 End: 10-27-[address] Sejal Beal MD -Cardiovascular Services Work Phone: Start: 10-27-2024 End: 10-27-2024 ambulatory Ambreen Lyn Facility:[facility] Start: 10-23-2024 End: 10-23-2024 Patient encounter procedure Samuel Nunez -MRI - [facility] Work Phone: Start: 10-23-2024 End: 10-23-2024 ambulatory Samuelestefani Nunez Facility:[facility] Start: 10-13-2024 End: 10-14-2024 Emergency department patient visit AMBREENEVGENY LYN Facility:[facility] Start: 10-13-2024 End: 10-13-[address] [facility] Start: 10-13-2024 End: 10-13-2024 ambulatory Ambreen Lyn Facility:[facility] Start: 10-10-2024 Encounter for other preprocedural examination Samuel Nunez [facility] Start: 09-20-2024 End: 09-20-[address] Ambreen Lyn MD -Laboratory Work Phone: Start: 09-20-2024 End: 09-20-2024 ambulatory Ambreen Lyn Facility:[facility] Start: 09-15-2024 End: 09-15-2024 Patient encounter procedure Samuel Nunez DO -Laboratory Work Phone: Start: 09-15-2024 End: 09-15-2024 Patient encounter procedure Samuel Nunez DO -[facility] Work Phone: Start: 09-15-2024 End: 09-15-2024 ambulatory Samuel Nunez Facility:[facility] Start: 09-15-2024 End: 09-15-2024 ambulatory Samuel Nunez Facility:[facility] Start: 09-11-2024 ambulatory Samuel Nunez Facility :[facility] Start: 09-11-2024 Non-patient / Non-visit Samuel Nunez DO [facility] Start: 09-11-2024 End: 09-11-2024 Admission to same day surgery center Samuel Nunez DO -Endoscopy Work Phone: Start: 09-11-2024 End: 09-11-2024 ambulatory Ambreen Lyn Facility:[facility] Start: 09-09-2024 End: 09-09-2024 Patient encounter procedure Maryjo Chowdhury [employer] Work Phone: Start: 09-09-2024 End: 09-09-2024 ambulatory Ambreen Lyn Facility:[facility] Start: 08-31-2024 Encounter for other preprocedural examination Samuel Nunez [facility] Start: 08-30-2024 End: 08-30-2024 Patient encounter procedure Samuel Nunez DO -[facility] Work Phone: Start: 08-30-2024 End: 08-30-2024 ambulatory Samuel Nunez Facility:[facility] Start: 08-14-2024 End: 08-14-2024 ambulatory Ludy Whitney Facility:[facility] Start: 08-11-2024 End: 08-11-2024 ambulatory Samuelestefani Nunez Facility:[facility] Start: 08-10-2024 End: 08-10-2024 ambulatory [facility] Facility:[facility] Start: 01-03-2024 End: 01-03-[address] Ambreen Lyn Work Phone: [facility] Work Phone: Start: 01-03-2024 End: 01-03-[address] Ambreen Lyn Work Phone: [facility] Work Phone: Start: 12-01-2023 Non-patient / Non-visit Dr. Ambreen Lyn Work Phone: [facility] Start: 12-01-2023 End: 12-01-2023 Admission to same day surgery center Dr. Ambreen Lyn Work Phone: [facility]-Endoscopy Work Phone: Start: 12-01-2023 End: 12-01-[address] Ambreen Lyn Work Phone: [facility] Work Phone: Start: 11-23-2023 End: 11-23-[address] Ambreen Lyn Work Phone: [facility] Work Phone: Start: 11-23-2023 End: 11-23-[address] Ambreen Lyn Work Phone: [facility]-Laboratory, Specimen Work Phone: Start: 11-18-2023 End: 11-18-[address] Ambreen Lyn Work Phone: [facility] Work Phone: Start: 11-18-2023 End: 11-18-[address] Ambreen Lyn Work Phone: [facility] Work Phone: Start: 11-08-2023 End: 11-08-[address] Ambreen Lyn Work Phone: [facility] Work Phone: Start: 11-08-2023 End: 11-08-[address] Ambreen Lyn Work Phone: [facility] Start: 09-15-2023 Non-patient / Non-visit Dr. Ambreen Lyn Work Phone: [facility] Start: 09-15-2023 End: 09-15-2023 Admission to same day surgery center Dr. Ambreen Lyn Work Phone: [facility]-Endoscopy Work Phone: Start: 09-15-2023 End: 09-15-[address] Ambreen Lyn Work Phone: [facility] Work Phone: Start: 09-09-2023 End: 09-09-[address] Ambreen Lyn Work Phone: [facility] Work Phone: Start: 09-07-2023 End: 09-07-[address] Ambreen Lyn Work Phone: [facility] Work Phone: Start: 08-30-2023 End: 08-30-[address] Ambreen Lyn Work Phone: [facility] Work Phone: Start: 04-15-2023 End: 04-15-[address] Ambreen Lyn Work Phone: [facility] Work Phone: Start: 04-15-2023 End: 04-15-[address] Ambreen Lyn Work Phone: [facility] Work Phone: Start: 03-11-2023 End: 03-11-[address] Ambreen Lyn Work Phone: [facility] Work Phone: Start: 03-11-2023 End: 03-11-[address] Ambreen Lyn Work Phone: [facility]-Laboratory Start: 03-11-2023 End: 03-11-[address] Ambreen Lyn Work Phone: [facility] Start: 03-01-2023 End: 03-01-[address] Ambreen Lyn Work Phone: [facility] Start: 02-15-2023 End: 02-15-2023 Patient encounter procedure Madison Lang PA-C Work Phone: [facility] Comment on above: Bacterial sinusitis (Primary Dx) Start: 01-26-2023 End: 01-26-[address] Ambreen Lyn Work Phone: [facility] Work Phone: Start: 01-26-2023 End: 01-26-[address] Ambreen Lyn Work Phone: [facility] Start: 01-03-2023 End: 01-03-[address] Ambreen Lyn Work Phone: [facility] Start: 09-10-2022 End: 09-10-[address] Ambreen Lyn Work Phone: [facility] Work Phone: Start: 09-10-2022 End: 09-10-[address] Ambreen Lyn Work Phone: [facility]-Laboratory Start: 09-01-2022 End: 09-01-[address] Ambreen Lyn Work Phone: [facility] Start: 08-25-2022 End: 08-25-[address] Ambreen Lyn Work Phone: [facility] Work Phone: Start: 08-25-2022 End: 08-25-[address] Ambreen Lyn Work Phone: [facility] Start: 08-21-2022 End: 08-21-[address] Ambreen Lyn Work Phone: [facility] Start: 07-04-2022 End: 07-04-[address] Ambreen Lyn Work Phone: [facility]-Laboratory, Specimen Start: 07-03-2022 End: 07-03-[address] Ambreen Lyn Work Phone: [facility] Work Phone: Start: 07-03-2022 End: 07-03-[address] Ambreen Lyn Work Phone: [facility]-Laboratory Start: 07-03-2022 End: 07-03-[address] Ambreen Lyn Work Phone: [facility] Start: 06-29-2022 End: 06-29-[address] Ambreen Lyn Work Phone: [facility] Work Phone: Start: 06-29-2022 End: 06-29-[address] Ambreen Lyn Work Phone: [facility]-Laboratory, [facility] Start: 06-12-2022 Non-patient / Non-visit Dr. Ambreen Lyn Work Phone: [facility] Start: 06-12-2022 End: 06-12-2022 Admission to same day surgery center Dr. Ambreen Lyn Work Phone: [facility]-Endoscopy Start: 06-12-2022 End: 06-12-[address] Ambreen Lyn Work Phone: [facility] Work Phone: Start: 06-09-2022 End: 06-09-[address] Ambreen Lyn Work Phone: [facility] Start: 01-30-2021 End: 01-30-[address] JARRED France [facility] Start: 01-07-2021 End: 01-07-[address] JARRED France [facility] Procedures Date Procedure Procedure Detail Performing Clinician Start: 06-08-2025 Vitamin D, 25-hydroxy measurement Dr. Joaquim Lyn MD Work Phone: Comment on above: Vitamin D StatusDeficiency: <20 ng/mL (5 0nmol/L)Insufficiency: 20-30 ng/mL (50-75 nmol/L)Sufficiency: 30-100 ng/mL (75-250 nmol/L)Toxicity: >100 ng/mL (>250 nmol/L) Start: 02-12-2025 In-vitro immunologic test Dr. Ambreen Lyn MD Work Phone: Comment on above: QuantiFERON-TB Gold Plus is a qualitativ e indirect test forM tuberculosis infection (including disease) and isintended for use in conjunction with risk assessment,radiography, and other medical and diagnostic evaluations.The QuantiFERON-TB Gold Plus result is determined bysubtracting the Nil value from either TB antigen (Ag)value. The Mitogen tube serves as a control for the test. No response to M tub erculosis antigens detected.Infection with M tuberculosis is unlikely, but high riskindividuals should be considered for additional testing(ATS/IDSA/CDC Clinical Practice Guidelines, 2017). Thereference range is an Antigen minus Nil result of <0.35IU/mL.The specimen received for QuantiFERON testing was incubatedby the ordering institution. Specific procedures outlinedin our Directory of Services and in the package insert forthe QuantiFERON Gold (In Tube) test must be followed toenable for proper stimulation of cells for the productionof interferon gamma. Chemiluminescence immunoassaymethodologyPerformed at: - [facility] [id number] Director: Cem Howell PhD, Phone: [phone] Start: 02-12-2025 X-ray of chest, PA and lateral views Dr. Ambreen Lyn MD Work Phone: Start: 01-16-2025 Radex hand minimum 3 views Shayy Gar ma, MD Work Phone: Start: 01-03-2025 Vitamin D, 25-hydroxy measurement Dr. Joaquim Lyn MD Work Phone: Comment on above: Vitamin D StatusDeficiency: <20 ng/mL (5 0nmol/L)Insufficiency: 20-30 ng/mL (50-75 nmol/L)Sufficiency: 30-100 ng/mL (75-250 nmol/L)Toxicity: >100 ng/mL (>250 nmol/L) Start: 12-15-2024 Fol[address] stimulating hormone measurement Dr. Ambreen Lyn MD Work Phone: Comment on above: FEMALE:Follicular: 1.4 - 18.1 mIU/mLMidc ycle: 3.4 - 33.4 mIU/mLLuteal: 1.5 - 9.1 mIU/mLPost Menopause: 23.0 - 116.3 mIU/mLMALE: 1.4 - 18.1 mIU/mL NORMAL REFERENCE RANGES FEMALE FOLLICULAR 2.3 - 12.6 mIU/mL MID-CYCLE PEAK 5.2 - 17.5 mIU/mL LUTEAL 1.7 - 12.9 mIU/mL POST-MENOPAUSAL ON MHT 5.9 - 72.8 mIU/mL NOT ON MHT 12.7 - 132.2 mlU/mL MALE 0.7 - 10.8 mIU/mL Start: 12-15-[address] Ambreen Lyn MD Work Phone: Comment on above: FEMALE:Follicular: 1.9-12.5 mIU/mLMidcyc le: 8.7-76.3 mIU/mLLuteal: 0.5-16.9 mIU/mLPost Menopause: 15.9-54.0 mIU/mLMALE:20-70 Years: 1.5-9.3 mIU/mL>70 Years: 3.1-34.6 mIU/mL Start: 11-22-2024 Radionuclide gastric emptying study Dr. Ambreen Lyn MD Work Phone: Start: 11-15-2024 Evaluation of diagnostic study results Dr. Ambreen Lyn MD Work Phone: Start: 10-23-2024 MRI of small intestine Dr. Ambreen Lyn MD Work Phone: Start: 01-03-2024 Plain x-ray of wrist Dr. Ambreen Lyn Work Phone: Start: 01-03-2024 X-ray of radius and ulna Dr. Ambreen Lyn Work Phone: Start: 12-01-[address] Ambreen Lyn Work Phone: Start: 11-23-[address] Ambreen Lyn Work Phone: Start: 11-23-2023 Giardia Antigen (JB) Dr. Ambreen Lyn Work Phone: Start: 11-23-[address] Ambreen Lyn Work Phone: Start: 11-23-[address] Ambreen Lyn Work Phone: Start: 11-23-[address] parasites identification [address] Ambreen Lyn Work Phone: Start: 11-18-2023 Computed tomography of abdomen and pelvis with contrast Dr. Ambreen Lyn Work Phone: Start: 09-15-[address] Ambreen burgos Work Phone: Start: 04-15-[address] Ambreen burgos Work Phone: Start: 04-15-[address] Ambreen Lyn Work Phone: Start: 08-25-[address] Ambreen burgos Work Phone: Start: 08-25-[address] Ambreen Lyn Work Phone: Start: 06-12-[address] Ambreen Lyn Work Phone: Clostridium difficile detection Dr. Ambreen Lyn Work Phone: Enteric Bacteriology Dr. Mone Lyn Work Phone: History of appendectomy S/P appendectomy Dr. Ambreen Lyn Work Phone: Comment on above: Part of colon was removed per patient History of operative procedure on knee S/P ACL surgery Dr. Ambreen Lyn Work Phone: History of tonsillectomy S/P tonsillectom y Dr. Ambreen Lyn Work Phone: Lactoferrin measurement Dr. Ambreen Lyn Work Phone: Plan of Treatment Date Care Activity Detail Author Start: 09-11-2025 End: 09-11-2025 Patient encounter procedure 09/11/2025 4:00 PM EST Office Visit Rheumatology [address] [place] [address] Kyara Knox MD [address] [place], [place] [id number] Joint Pain Rheumatology Comment on above: Joint Pain Start: 03-15-2025 End: 03-15-2025 Patient encounter procedure 03/15/2025 9:40 AM EDT Office Visit [facility] [address] [place] [address] Shayy Story MD [address] [place], [place] [id number] 6-10 wk new f/up in office. pe [facility] Comment on above: 6-10 wk new f/up in office. pe Start: 02-22-2025 End: 02-22-2025 Patient encounter procedure 02/22/2025 8:20 AM EDT Office Visit [facility] [address] [facility] [place] [address] Jared Joiner MD [address] [place] [id number] Pt. seen in [place] [facility] for Abnormal EKG. [facility] Comment on above: Pt. seen in [place] [facility] for Abnormal EKG. Start: 02-16-2025 End: 02-16-2025 Patient encounter procedure 02/16/2025 12:50 PM EDT Office Visit CP [facility] [address] [facility] [address] [place] [address] Alla Knight DO [address] [facility] [address] [place] [address] 4 m f/u [facility] Comment on above: 4 m f/u Start: 01-16-2025 End: 04-17-2025 25-hydroxyvitamin D3 [Mass/volume] in Serum or Plasma [facility] Comment on above: Expected: 01/16/2025, Expires: Start: 01-16-2025 End: 04-17-2025 C reactive protein [Mass/volume] in Serum or Plasma [facility] Comment on above: Expected: 01/16/2025, Expires: Start: 01-16-2025 End: 04-17-2025 CBC W Auto Differential panel - Blood [facility] Comment on above: Expected: 01/16/2025, Expires: Start: 01-16-2025 End: 04-17-2025 Comprehensive metabolic 2000 panel - Serum or Plasma [facility] Comment on above: Expected: 01/16/2025, Expires: Start: 01-16-2025 End: 04-17-2025 Creatinine [Mass/volume] in Urine collected for unspecified duration [facility] Comment on above: Expected: 01/16/2025, Expires: Start: 01-16-2025 End: 04-17-2025 Cyclic citrullinated peptide IgG Ab [Units/volume] in Serum or Plasma [facility] Comment on above: Expected: 01/16/2025, Expires: Start: 01-16-2025 End: 04-17-2025 Erythrocyte sedimentation rate [facility] Comment on above: Expected: 01/16/2025, Expires: Start: 01-16-2025 End: 01-16-2026 Hepatitis B virus core Ab [Presence] in Serum [facility] Comment on above: Expected: 01/16/2025, Expires: Start: 01-16-2025 End: 04-17-2025 Hepatitis B virus surface Ab [Presence] in Serum [facility] Comment on above: Expected: 01/16/2025, Expires: Start: 01-16-2025 End: 01-16-2026 Hepatitis B virus surface Ag [Presence] in Serum [facility] [place] Work Phone: Comment on above: Expected: 01/16/2025, Expires: Start: 01-16-2025 End: 04-17-2025 Hepatitis C virus Ab [Presence] in Serum [facility] Comment on above: Expected: 01/16/2025, Expires: Start: 01-16-2025 End: 04-17-2025 Protein [Mass/volume] in Urine [facility] Comment on above: Expected: 01/16/2025, Expires: Start: 01-16-2025 End: 04-17-2025 Rheumatoid factor [Units/volume] in Serum or Plasma [facility] Comment on above: Expected: 01/16/2025, Expires: Start: 01-16-2025 End: 04-17-2025 TPMT PHENOTYPE/ENZYME ACTIVITY [facility] Comment on above: Expected: 01/16/2025, Expires: Start: 01-16-2025 End: 04-17-2025 Urinalysis complete panel - Urine [facility] Comment on above: Expected: 01/16/2025, Expires: Start: 12-15-2024 Aldolase [Enzymatic activity/volume] in Serum or Plasma [facility] Start: 12-15-2024 Catecholamines [Moles/volume] in Plasma [facility] Start: 12-15-2024 Estrogen [Mass/volume] in Serum or Plasma [facility] Start: 12-15-2024 Insulin [Mass/volume] in Serum or Plasma [facility] Start: 12-15-2024 Testosterone measurement [facility] Start: 10-27-2024 End: 10-27-2024 Patient encounter procedure 10/27/2024 1:30 PM EST Office Visit [facility] [address] [facility] [address] [place] [id number] Alla Knight DO [address] [facility] [address] [place] [address] Arrived [facility] Comment on above: Arrived Start: 09-11-2024 Colonoscopy w/biopsy single/multiple COLONOSCOPY AND BIOPSY [facility] Start: 09-11-2024 Egd transoral biopsy single/multiple EGD BIOPSY SINGLE/MULTIPLE [facility] Start: 09-11-2024 Patient discharge [facility] Start: 06-11-2024 Covid-19 Vaccine ( season) Covid-19 Vaccine () [facility] Start: 06-11-2024 Influenza vaccination Influenza Vaccine (#1) [facility] Start: 12-01-2023 Colonoscopy w/biopsy single/multiple COLONOSCOPY AND BIOPSY [facility] Start: 12-01-2023 Patient discharge [facility] Start: 09-15-2023 Egd transoral biopsy single/multiple EGD BIOPSY SINGLE/MULTIPLE [facility] Start: 09-15-2023 Patient discharge [facility] Start: 08-31-2023 PAP TESTING PAP TESTING [facility] Start: 10-11-2022 DEPRESSION ASSESSMENT DEPRESSION ASSESSMENT [facility] Start: 07-04-2022 Fat [Presence] in Stool [facility] Work Phone: Start: 07-04-2022 Protein measurement [facility] Work Phone: Start: 07-03-2022 Immunoglobulin measurement [facility] Work Phone: Start: 07-03-2022 Procedure [facility] Work Phone: Start: 07-03-2022 Serum immunofixation [facility] Work Phone: Start: 07-03-2022 [facility] Work Phone: Start: 06-12-2022 Colonoscopy w/biopsy single/multiple COLONOSCOPY AND BIOPSY [facility] Work Phone: Start: 06-12-2022 Egd transoral biopsy single/multiple EGD BIOPSY SINGLE/MULTIPLE [facility] Work Phone: Start: 06-12-2022 Patient discharge [facility] Work Phone: Start: 12-26-2021 HPV TESTING HPV TESTING [facility] Start: 10-24-2021 COVID-19 VACCINE (4 - Booster for Pfizer series) COVID-19 VACCINE (4 - Booster for Pfizer series) [facility] Start: 08-31-2021 Screening for malignant neoplasm of cervix Cervical Cancer Screening [facility] Start: 08-31-2019 Screening for malignant neoplasm of cervix Cervical Cancer Screening [facility] Start: 05-29-2019 Urine microalbumin profile DTaP,Tdap,Td Vaccine (8 - Td or Tdap) [facility] Start: 12-26-2010 Pneumococcal vaccination Pneumococcal Vaccine (1 of 2 - PCV) [facility] Start: 12-26-2010 Shingrix Vaccine (1 of 2) Shingrix Vaccine (1 of 2) [facility] Start: 12-26-2010 Urine microalbumin profile DTAP,TDAP,TD (1 - Tdap) [facility] Start: 12-26-2009 Anxiety Screening Anxiety Screening [facility] Start: 12-26-2009 Depression Screening Depression Screening [facility] Start: 12-26-2009 HIV SCREENING HIV SCREENING [facility] Start: 12-26-2009 HIV screening HIV Screening [facility] Start: 1990 HEPATITIS B (1 of 3 - 3-dose series) HEPATITIS B (1 of 3 - 3-dose series) [facility] Albumin [Moles/volum e] in Serum or Plasma [facility] Work Phone: Albumin/Globulin ratio [facility] Work Phone: Aldolase [Enzymatic activity/volume] in Serum or Plasma [facility] Beef IgE Ab [Units/volume] in Serum [facility] Work Phone: Chocolate IgE Ab [Units/volume] in Serum [facility] Work Phone: Corona IgE Ab [Units/volume] in Serum [facility] Work Phone: Cow milk IgE Ab [Units/volume] in Serum [facility] Work Phone: DOPamine [Mass/volum e] in Serum or Plasma [facility] Elastase.pancreatic [Presence] in Stool [facility] Electrophoresis: [id number] [facility] Work Phone: Electrophoresis: sunny ma globulin [facility] Work Phone: EPINEPHrine [Mass/volume] in Plasma [facility] Estrogen [Mass/volum e] in Serum or Plasma [facility] Fish RAST [facility] Work Phone: Giardia lamblia anti gen assay [facility] Globulin measurement [facility] Work Phone: IgA [Mass/volume] in Serum or Plasma [facility] Work Phone: IgE [Units/volume] i n Serum or Plasma [facility] Work Phone: IgG [Mass/volume] in Serum or Plasma [facility] Work Phone: IgM [Mass/volume] in Serum or Plasma [facility] Work Phone: Insulin [Mass/volume ] in Serum or Plasma [facility] Neutrophil cytoplasm ic Ab.classic [Units/volume] in Serum [facility] Work Phone: Ova and parasites identified in Unspecified specimen by Light microscopy [facility] P-ANCA measurement [facility] Work Phone: Patient referral [facility] Work Phone: Peanut IgE Ab [Units/volume] in Serum [facility] Work Phone: Plasma norepinephrin e measurement [facility] Pork IgE Ab [Units/volume] in Serum [facility] Work Phone: Procedure [facility] Work Phone: Protein electrophore sis panel - Serum or Plasma [facility] Work Phone: Protein measurement [facility] Serum protein electrophoresis [facility] Work Phone: Serum testosterone measurement [facility] Soybean IgE Ab [Units/volume] in Serum [facility] Work Phone: Testosterone Free [Mass/volume] in Serum or Plasma [facility] Testosterone measurement [facility] Ultrasound elastography [facility] US Abdomen limited [facility] Wheat IgE Ab [Units/volume] in Serum [facility] Work Phone: Whole Egg IgE Ab [Units/volume] in Serum [facility] Work Phone: [facility] Immunizations Immunization Date Immunization Notes Care Provider Gus ayala 07-28-2023 influenza virus vaccine, unspecified formulation Alla Florinoneilr DO Work Phone: [facility] 08-29-2021 COVID-19 original vaccine, age 12+ yr, monovalent (Jaunt-BIONTFreeWheel - PURPLE TOP) Madison Rickey PA-C Work Phone: [facility] Work Phone: 07-13-2018 influenza, injectabl e, quadrivalent, contains preservative Madison Slabaugh PA-C Work Phone: [facility] 08-22-2017 influenza, seasonal, injectable Madison Slabaugh PA-C Work Phone: [facility] Work Phone: 08-10-2016 influenza, seasonal, injectable Madison Slabaugh PA-C Work Phone: [facility] 07-30-2015 influenza, seasonal, injectable Madison Lang PA-C Work Phone: [facility] 07-24-[address] Ambreen Lyn Work Phone: [facility] 08-14-2014 influenza, seasonal, injectable Madisonshannan Delatorreaugh PA-C Work Phone: [facility] 08-16-2013 influenza virus vaccine, unspecified formulation Madison Lang PA-C Work Phone: [facility] Work Phone: 07-25-2012 influenza virus vaccine, unspecified formulation Madison Delatorreaugh PA-C Work Phone: [facility] Payers Date Payer Category Payer Self-pay [id number] 2019 Private Health Insurance MMO SUP ERMED PPO [id number] 2019 Unknown MMO MMO SUPERMED PPO [id number] 2019-Present [phone] [address] [place] [address] PPO [id number] 2019 Unknown [id number] 1998 Unknown MED [facility] [id number] 1991 Unknown [id number] [id number]. 651 1991 Unknown [id number] 2.16.840.1.579274.3.579.2. 651 Unknown [facility] TRCAI [id number] Unknown [id number] 2.16.840.1.201712.3.579.2. 462 Unknown [id number] 2..840.1.856285.3.579.2. 462 Unknown [id number] 2..840.1.064618.3.579.2. 462 Unknown [id number] 2.840.1.463765.3.579.2. 462 Unknown [id number] 2.840.1.263861.3.579.2. 462 Unknown [id number] 2.840.1.168614.3.579.2. 462 Unknown [id number] 2.840.1.676320.3.579.2. 462 Unknown [id number] 2.840.1.839930.3.579.2. 462 Unknown [id number] 2.840.1.386860.3.579.2. 462 Unknown [id number] 2.840.1.940757.3.579.2. 462 Unknown [id number] 2.16840.1.307454.3.579.2. 462 Unknown [id number] 2.16.840.1.908088.3.579.2. 462 Unknown [id number] 2.16840.1.627536.3.579.2. 462 Unknown [id number] 2.16840.1.022170.3.579.2. 462 Unknown [id number] 2.16.840.1.280975.3.579.2. 462 Unknown [id number] 2.16.840.1.605191.3.579.2. 462 Unknown [id number] 2.16.840.1.426078.3.579.2. 462 Unknown [id number] 2.16.840.1.012246.3.579.2. 462 Unknown [id number] 2.16.840.1.851763.3.579.2. 462 Unknown [id number] 2.16.840.1.002537.3.579.2. 462 Unknown [id number] 2.16.840.1.206032.3.579.2. 462 Unknown [id number] 2.16.840.1.301137.3.579.2. 462 Unknown [id number] 2.16.840.1.465306.3.579.2. 462 Unknown [id number] 2.16.840.1.611098.3.579.2. 462 Social History Date Type Detail Facility Start: 06-11-2022 End: 01-03-2024 Tobacco smoking status RIIS Unknown if ever smoked [facility] Start: 08-26-2019 None [facility] Start: 08-26-2019 Spouse/ Signif icant Other [facility] Start: 04-24-2020 Non-smoker [facility] Start: 1990 Sex Assigned At Female [facility] Start: 09-14-2011 End: 05-07-2025 Tobacco smoking status RIIS Never smoked tobacco [facility] Work Phone: Start: 09-14-2011 Tobacco use and exposure Smokeless tobacco non-user [facility] Work Phone: Start: 02-15-2023 End: 10-27-2024 Alcohol intake Current non-drinker of alcohol (finding) [facility] Start: 1990 Sex Assigned At Not on file [facility] Start: 02-15-2023 End: 10-14-2024 History of Social function [facility] Start: 02-15-2023 End: 10-14-2024 Tobacco use panel [facility] Adult Depression Screening Assessment 0 [facility] Start: 12-24-2024 End: 01-07-2025 Sex Female (finding) [facility] NEGATED: Highlighted row Not [facility] Medical Equipment Procedure Code Equipment Code Equipment Original Text Equipment Identifier Dates Total cholecystectomy with exploration of common bile duct CLIP,SHERWIN SHANNON FDA Start: 05-01-2020 Total cholecystectomy with exploration of common bile duct CLIP,HEMSHEILA RYAN WEANJELICA FDA Start: 05-01-2020 Total cholecystectomy with exploration of common bile duct CLIP,HEMSHEILA SHANNON FDA Start: 05-01-2020 Total cholecystectomy with exploration of common bile duct CLIP,HEMSHEILA SHANNON FDA Start: 05-01-2020 Total cholecystectomy with exploration of common bile duct CLIP,HEMSHEILA SHANNON FDA Start: 05-01-2020 Total cholecystectomy with exploration of common bile duct CLIP,SHERWIN SHANNON FDA Start: 05-01-2020 Total cholecystectomy with exploration of common bile duct CLIP,SHERWIN SHANNON FDA Start: 05-01-2020 Total cholecystectomy with exploration of common bile duct CLIP,HEMSHEILA SHANNON FDA Start: 05-01-2020 Total cholecystectomy with exploration of common bile duct CLIP,HEMSHEILA SHANNON FDA Start: 05-01-2020 Total cholecystectomy with exploration of common bile duct CLIP,HEMSHEILA SHANNON FDA Start: 05-01-2020 Total cholecystectomy with exploration of common bile duct CLIP,SHERWIN SHANNON FDA Start: 05-01-2020 Total cholecystectomy with exploration of common bile duct CLIP,HEMSHEILA SHANNON FDA Start: 05-01-2020 Total cholecystectomy with exploration of common bile duct CLIP,HEMSHEILA RYAN WEANJELICA FDA Start: 05-01-2020 Total cholecystectomy with exploration of common bile duct CLIP,HEMSHEILA RYAN WEANJELICA FDA Start: 05-01-2020 Total cholecystectomy with exploration of common bile duct CLIP,HEMSHEILA RYAN WEANJELICA FDA Start: 05-01-2020 Total cholecystectomy with exploration of common bile duct CLIP,HEMSHEILA RYAN WEANJELICA FDA Start: 05-01-2020 Total cholecystectomy with exploration of common bile duct CLIP,HEMSHEILA SHANNON FDA Start: 05-01-2020 Total cholecystectomy with exploration of common bile duct CLIP,HEMOLOANJELICA RYAN WECK FDA Start: 05-01-2020 Total cholecystectomy with exploration of common bile duct CLIP,HEMOLOCK CONNOR WECK FDA Start: 05-01-2020 Total cholecystectomy with exploration of common bile duct CLIP,HEMOLOANJELICA RYAN WECK FDA Start: 05-01-2020 Total cholecystectomy with exploration of common bile duct CLIP,HEMOLOCK CONNOR WECK FDA Start: 05-01-2020 Total cholecystectomy with exploration of common bile duct CLIP,HEMOLOANJELICA CONNOR WECK FDA Start: 05-01-2020 Total cholecystectomy with exploration of common bile duct CLIP,HEMOLOANJELCIA CONNOR WECK FDA Start: 05-01-2020 Total cholecystectomy with exploration of common bile duct CLIP,HEMOLOCK CONNOR WECK FDA Start: 05-01-2020 Total cholecystectomy with exploration of common bile duct CLIP,HEMOLOANJELICA RYAN WECK FDA Start: 05-01-2020 Total cholecystectomy with exploration of common bile duct CLIP,HEMOLOANJELICA RYAN WECK FDA Start: 05-01-2020 Total cholecystectomy with exploration of common bile duct CLIP,HEMOLOANJELICA RYAN WECK FDA Start: 05-01-2020 Total cholecystectomy with exploration of common bile duct CLIP,HEMOLOANJELICA RYAN WECK FDA Start: 05-01-2020 Total cholecystectomy with exploration of common bile duct CLIP,HEMOLOCK CONNOR WECK FDA Start: 05-01-2020 Total cholecystectomy with exploration of common bile duct CLIP,HEMOLOANJELICA RYAN WECK FDA Start: 05-01-2020 Total cholecystectomy with exploration of common bile duct CLIP,HEMOLOANJELICA RYAN WECK FDA Start: 05-01-2020 Total cholecystectomy with exploration of common bile duct CLIP,HEMOLOANJELICA RYAN WECK FDA Start: 05-01-2020 Total cholecystectomy with exploration of common bile duct CLIP,HEMOLOANJELICA RYAN WECK FDA Start: 05-01-2020 Total cholecystectomy with exploration of common bile duct CLIP,HEMOLOCK CONNOR WECK FDA Start: 05-01-2020 Total cholecystectomy with exploration of common bile duct CLIP,HEMOLOANJELICA RYAN WECK FDA Start: 05-01-2020 Total cholecystectomy with exploration of common bile duct CLIP,HEMOLOANJELICA RYAN WECK FDA Start: 05-01-2020 Total cholecystectomy with exploration of common bile duct CLIP,HEMOLOANJELICA RYAN WECK FDA Start: 05-01-2020 Total cholecystectomy with exploration of common bile duct CLIP,HEMOLOANJELICA RYAN WECK FDA Start: 05-01-2020 Total cholecystectomy with exploration of common bile duct CLIP,HEMOLOANJELICA CONNOR WECK FDA Start: 05-01-2020 Total cholecystectomy with exploration of common bile duct CLIP,HEMSHEILA CONNOR WECK FDA Start: 05-01-2020 Total cholecystectomy with exploration of common bile duct CLIP,HEMOLOANJELICA RYAN WECK FDA Start: 05-01-2020 Total cholecystectomy with exploration of common bile duct CLIP,HEMOLOANJELICA CONNOR WEANJELICA FDA Start: 05-01-2020 Total cholecystectomy with exploration of common bile duct CLIP,HEMPROSPERANJELICA SHANNON FDA Start: 05-01-2020 Total cholecystectomy with exploration of common bile duct CLIP,HEMPROSPERANJELICA CONNOR WEANJELICA FDA Start: 05-01-2020 Total cholecystectomy with exploration of common bile duct CLIP,HEMOLOANJELICA CONNOR WEANJELICA FDA Start: 05-01-2020 Total cholecystectomy with exploration of common bile duct CLIP,HEMPROSPERANJELICA SHANNON FDA Start: 05-01-2020 Total cholecystectomy with exploration of common bile duct CLIP,HEMPROSPERANJELICA SHANNON FDA Start: 05-01-2020 Total cholecystectomy with exploration of common bile duct CLIP,HEMSHEILA SHANNON FDA Start: 05-01-2020 Total cholecystectomy with exploration of common bile duct CLIP,HEMPROSPERANJELICA CONNOR SHIVA FDA Start: 05-01-2020 Total cholecystectomy with exploration of common bile duct CLIP,HEMPROSPERANJELICA CONNOR SHIVA FDA Start: 05-01-2020 Total cholecystectomy with exploration of common bile duct CLIP,HEMPROSPERANJELICA SHANNON FDA Start: 05-01-2020 Total cholecystectomy with exploration of common bile duct CLIP,HEMPROSPERANJELICA SHANNON FDA Start: 05-01-2020 Total cholecystectomy with exploration of common bile duct CLIP,HEMPROSPERANJELICA SHANNON FDA Start: 05-01-2020 Total cholecystectomy with exploration of common bile duct CLIP,HEMOLOANJELICA RYAN WEANJELICA FDA Start: 05-01-2020 Total cholecystectomy with exploration of common bile duct CLIP,HEMOLOANJELICA CONNOR WEANJELICA FDA Start: 05-01-2020 Total cholecystectomy with exploration of common bile duct CLIP,HEMOLOANJELICA SHANNON FDA Start: 05-01-2020 Total cholecystectomy with exploration of common bile duct CLIP,HEMOLOANJELICA SHANNON FDA Start: 05-01-2020 Total cholecystectomy with exploration of common bile duct CLIP,HEMOLOANJELICA SHANNON FDA Start: 05-01-2020 Total cholecystectomy with exploration of common bile duct CLIP,HEMSHEILA SHANNON FDA Start: 05-01-2020 Total cholecystectomy with exploration of common bile duct CLIP,SHASHASHEILA CONNOR KHALILANJELICA FDA Start: 05-01-2020 Goals Date Patient Goal Desired Activity /State Functional Status Date Assessment Result Facility 08-08-2014 Are you deaf, or do you have serious difficulty hearing No 08/08/2014 9:26 AM EDT [facility] 08-08-2014 Are you blind, or do you have serious difficulty seeing, even when wearing glasses No 08/08/2014 9:26 AM EDT [facility] 08-08-2014 Do you have serious difficulty walking or climbing stairs No 08/08/2014 9:26 AM EDT [facility] 08-08-2014 Do you have difficul ty dressing or bathing No 08/08/2014 9:26 AM EDT [facility] 08-08-2014 Because of a physica l, mental, or emotional condition, do you have difficulty doing errands alone such as visiting a physician's office or shopping No 08/08/2014 9:26 AM EDT [facility] Mental Status Date Assessment Result Facility 10-23-2024 Cognitive function Awake;Alert;Appropriat e [facility] Work Phone: 09-11-2024 Cognitive function Touch/Shaking [facility] Work Phone: 12-01-2023 Cognitive function Voice/Name [facility] Work Phone: 09-15-2023 Cognitive function Voice/Name [facility] Work Phone: 06-12-2022 Cognitive function Voice/Name [facility] Work Phone: 08-08-2014 Because of a physica l, mental, or emotional condition, do you have serious difficulty concentrating, remembering, or making decisions No 08/08/2014 9:26 AM EDT [facility] Clinical Notes 04-24-2011 to 05-17-2025 Note Date & Type Note Facility 05-17-2025 Note HNO ID: [id number] Author: SINDHU GATES APRN.STAFF ATTORNEY Service: ? 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 Patient/authorized termite control service representative agreed to proceed Subjective: The patient is a 34-year-old female presenting with a pruritic rash following suspected poison rosette exposure. History of Present Illness: Pruritic Rash: - Rash onset following yard work on Wednesday. - Initial lesion noted on the arm, with subsequent spread to multiple areas. - Serous drainage from several lesions. - Tried Benadryl itch gel, calamine lotion, and Rosette Stop soap with minimal relief. - Pruritus intensifies as the day progresses. - Denies fever, dysphagia, or dyspnea. Review of Systems: Constitutional: (-) fever Ears/Nose/Mouth/Throat: (-) dysphagia Respiratory: (-) dyspnea Skin: (+) pruritic rash, (+) skin drainage Allergies: Allergies: Gadolinium-Containi* Hives, Other: See Comments Comment:Lip swelling Morphine Swelling Past Medical History: PAST MEDICAL HISTORY Diagnosis Date Allergic rhinitis Dr. Vick Angioedema of lips Dr. Vick (tongue and lip swelling) Cellulitis and abscess of unspecified site from ruptured appendix (March 2011--resolved) Crohn's colitis (HCC) Urticaria Dr. Vick Past Surgical History: PAST SURGICAL HISTORY Procedure Laterality Date COLONOSCOPY FLX DX W/COLLJ SPEC WHEN PFRMD 04/17/2011 Colonoscopy COLONOSCOPY W/BIOPSY SINGLE/MULTIPLE 04/27/11 DEBRIDEMENT OPEN WOUND 20 SQ CM/< 04/24/11 Debride RLQ wound LAPS COLECTOMY PRTL W/RMVL TERMINAL ILEUM 8-8-11 lap right PAST SURGICAL HISTORY OF appendix removal March and May 2011 PAST SURGICAL HISTORY OF 2007 left Acl repair TONSILLECTOMY HX 2004 Family History: FAMILY HISTORY Problem Relation Age of Onset Hypertension Father other (depression) Father Diabetes Maternal Grandmother Diabetes Paternal Grandmother Heart Paternal Grandmother Blood Disease Paternal Grandfather Prostate Cancer Paternal Grandfather other (crohn's) Sister Tobacco History: Tobacco Use: Never Medications: Current Outpatient Medications Medication Sig Dispense Refill Cholecalciferol, Vitamin D3, 25 mcg (1,000 unit) cap Take 25 mcg by mouth once daily. omeprazole (PRILOSEC) 40 mg capsule Take 1 capsule by mouth every 12 hours. Zinc Acetate, Oral, 50 mg (zinc) cap Take by mouth. fexofenadine HCl (WILLOW ALLERGY ORAL) Take by mouth. predniSONE (DELTASONE) 10 mg tablet Take by mouth 4 tabs a day for 4 days, then 2 tabs a day for 4 days, then 1 tab a day for 4 days, then 1/2 tab a day for 4 days. 30 tablet 0 famotidine (PEPCID) 20 mg tablet Take 1 tablet by mouth two times a day for 7 days. 14 tablet 0 cetirizine (ZYRTEC) 10 mg tablet Take 1 tablet by mouth once daily for 7 days. 7 tablet 0 No current facility-administered medications for this visit. Vitals: BP 122/78 (BP Site: Right Arm, BP Position: Sitting, BP Cuff Size: Regular Adult) Pulse 80 Temp 36.1 ?C (97 ?F) (Right Tympanic) Resp 18 Ht 167.6 cm (5' 6) Wt 74.4 kg (164 lb 0.4 oz) LMP 02/03/2021 SpO2 99% BMI 26.47 kg/m? Physical Exam: Physical Exam Vitals reviewed. Constitutional: General: She is not in acute distress. Appearance: She is not ill-appearing, toxic-appearing or diaphoretic. Pulmonary: Effort: Pulmonary effort is normal. Skin: Findings: Rash (vesiculopapular rash to the bilateral arms and legs) present. Neurological: Mental Status: She is alert. Psychiatric: Behavior: Behavior is cooperative. ASSESSMENT/PLAN: (R21) Rash (primary encounter diagnosis) Plan: predniSONE (DELTASONE) 10 mg tablet, famotidine (PEPCID) 20 mg tablet, cetirizine (ZYRTEC) 10 mg tablet -Steroids and 2 antihistamines. -Keep area clean and dry. Non scented antimicrobial soap and water. -If you have significant itching please avoid heat as this can make the itching worse. Cool compresses for comfort. -Do not pick at the site. This can lead to a secondary infection. -Signs of worsening infection: increased in size, streaking up or down the skin, fever of 101 F or higher, or copious drainage from the site. -If no improvement please follow up in 3-5 days. -Be seen immediately or go to the ER with worsening symptoms. - See patient instructions for further recommendations. - Pt education along with discharge instructions given to pt - Discussed Red Flag signs and when to go to ER. - Pt agreeable with plan and verbalizes understanding. - Follow up with PCP if symptoms worsen or do not improve in the next 2-3 days. Sindhu Gates APRN.STAFF ATTORNEY 5:12 PM 05/17/25 Disposition The patient was discharged. OTC Medications were ad (more content not included)... [facility] 05-07-2025 Evaluation note Diagnosis Onset Date Resolution Encounter for routine gynecological examination noneactive May 07, 2025 1:20pm [facility] Work Phone: 1(476) 401-396507-28-2025 Progress note Author Natasha Lindsey [facility] Note Date/Time May 07, 2025 1:58 pm [facility] [address] [place] [address], [address] [place] [address] OFFICE VISIT Date of Service: 05/07/25 MR#: [id number] Acct: [id number] Name: PROSPER HARRY Rep #: [id number] : 1990 Provider: Dr. 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 Poultry Required: No Is patient in pain?: No Allergies Gadolinium-MRI Contrast Medium Allergy (Intermediate, Verified 05/07/25 13:25) Hives morphine Allergy (Verified 05/07/25 13:25) Hives Medications ?Medication ?Instructions ?Recorded ?Confirmed ?Type cholecalciferol (vitamin D3) 25 25 mcg PO DAILY 05/07/25 History mcg (1,000 unit) capsule omeprazole 40 mg capsule,delayed 40 mg PO QDAY 5 05/07/25 History release vitamin E 268 mg (400 unit) capsule 268 mg PO QDAY 05/07/25 History ascorbic acid 1,000 1 ea PO DAILY PRN 11/15/24 0 05/07/25 History rc-anolcfpjbkwy-lgtxsrfh powder effervescent pack (Emergen-C Immune Plus) Is last menstrual period known: Yes Last Menstrual Period: 05/06/25 Post menopausal: No Patient : No : No PFSH Medical History Abnormal EKG Fatigue SOB (shortness of breath) Crohn's disease Celiac disease Weight gain, abnormal Biliary colic Anemia Anxiety, generalized IgA deficiency Non-celiac gluten sensitivity Malabsorption syndrome Metabolic syndrome Irritable bowel syndrome with diarrhea Abdominal pain GERD (gastroesophageal reflux disease) Gestational diabetes mellitus (GDM) Biliary dyskinesia Epigastric pain Acute hepatitis Pancytopenia Ovarian cyst Surgical History Hx of anterior cruciate ligament tear reconstruction H/O hemicolectomy History of cholecystectomy (~04/2020) S/P appendectomy S/P ACL surgery S/P tonsillectomy Family History Grandmother Diabetes Father Hypertension Grandfather Cancer Sister Crohn's disease Social History number of children: 3 current occupation: [employer] Smoking Status: Never smoker alcohol intake: current details: occasionally substance use type: does not use caffeine: Yes Type: coffee what type of physical activity do you participate in: aerobics frequency: 5-6 times per week seatbelt use: always do you feel safe at home: Yes additional social history: -Martin History 3 Elective abortions Hx Para 3 Spontaneous abortions Hx # Term Pregnancies Ectopic pregnancies Hx # Pregnancies Multiple births # of living children Past Pregnancies Del. Date Name GA/Weeks Outcome Route Bth Weight Gen Labor Lgth Anesthesia Del Locatn Provider CONTRERAS 06/07/16 Radha 02/19/18 Ana 05/10/19 Jarred [facility] Encounter for routine gynecological examination Details: PROSPER HARRY is a 34 year old who presents for annual exam. Last PAP: 03/20/2024 - normal History of abnormal PAP: Last mammogram: not due History of abnormal mammogram: Colon cancer screening: March 2025 - Other preventative health care screenings: PCP Smith. CYNTHIA Nunez. Female Reproductive History Last Menstrual Period: 05/06/25 Cycle Length: 21-35 Bleeding Duration: 5 Questions: metorrhagia: No, sexually active: Yes, dyspareunia: No and PCB: No Menopausal Symptoms: No hot flashes, No night sweats, No weight change, No mood changes, No difficulty concentrating, No sleep problems and No change in libido ROS Const Constitutional: Reports as per HPI; Denies fatigue, increased appetite, poor appetite, night sweats, weight gain or weight loss Cardio Card: Denies chest pain Resp Resp: Denies cough or dyspnea GI GI: Reports as per HPI; Denies abdominal pain, bloating, constipation, nausea or vomiting : Reports as per HPI and other; Denies difficulty voiding, dysuria, hematuria, hot flashes, nipple discharge, pelvic pain, prolapse symptoms, urinary frequency, urinary incontinence, urinaryurgency, vaginal discharge, vaginal dryness, vaginal odor or vaginal pruritus Skin Skin/Breast: Denies changing lesions, breast mass, breast pain, breast skin changes or nipple discharge Psych Psych: Denies anxiety, change in libido, depression or difficulty concentrating Exam Const General: cooperative, healthy appearing, comfortable, no acute distress, well developed and well groomed [facility] Head: normal to inspection and normocephalic Ears: hearing grossly normal bilaterally and external ears normal Nose: external nose normal Face and sinus: normal facial exam Neck Neck: normal visual inspection, full ROM and no lymphadenopathy Thyroid: thyroid normal Chest Chest palpation & inspection: normal inspection of the chest Breast inspection: normal inspection of the breasts and normal inspection of theaxillae Breast palpation: normal palpation of the breasts, normal palpation of the axillae and no axillary lymphadenopathy Resp Effort & Inspection: normal respiratory effort GI Inspection: normal to inspection and non-distended Palpation: soft, no hepatosplenomegaly and no guarding Skin General: no rashes or lesions noted Neuro General: patient alert, moves all extremities and no focal motor deficits Extrem General: normal to inspection and no pedal edema Psych Appearance: grossly normal Mental Status: mental status grossly normal Affect: normal affect Speech and Movement: speech and movement normal Attitude: cooperative Coding Level of Care Code Off vis,est,prev 18-39yrs Diagnoses Encounter for gynecological examination with abnormal finding Z01.411 Gynecological examination findings: abnormal findings PRESENT Assessment and Plan Assessment and Plan (1) Encounter for routine gynecological examination: Qualifiers: Gynecological examination findings: abnormal findings PRESENT QualifiedCode(s): Z01.411 - Encounter for gynecological examination (general) (routine) with abnormal findings Plan Cervical cancer screening: pap hpv up to date Breast cancer screening: mamm age 40 other health maintenance examination reviewed and orders placed if needed. Encouraged maintenance of a healthy weight and active lifestyle and handout given. Annual exam handout including recommendations for good health guidelines, Calcium/vitamin D recommendations, and basic screening information given. Problem list up to date, see problem list details for any additional plan information. Follow up in one year for annual health maintenance exam or sooner if needed. 05/07/25 [id number] <Electronically signed by Natasha castillo MD> Date _ Natasha Lindsey MD Cosign Signature: Date (if applicable) CC: ~ [facility] [employer] Work Phone: 1(128) 315-916207-28-2025 Progress [facility] [address], [address] [place] [address] OFFICE VISIT Date of Service: 05/07/25 MR#: [id number] Acct: [id number] Name: PROSPER HARRY Rep #: [id number] : 1990 Provider: Dr. 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 Poultry Required: No Is patient in pain?: No Allergies Gadolinium-MRI Contrast Medium Allergy (Intermediate, Verified 05/07/25 13:25) Hives morphine Allergy (Verified 05/07/25 13:25) Hives Medications ?Medication ?Instructions ?Recorded ?Confirmed ?Type cholecalciferol (vitamin D3) 25 25 mcg PO DAILY 05/07/25 History mcg (1,000 unit) capsule omeprazole 40 mg capsule,delayed 40 mg PO QDAY 5 05/07/25 History release vitamin E 268 mg (400 unit) capsule 268 mg PO QDAY 05/07/25 History ascorbic acid 1,000 1 ea PO DAILY PRN 11/15/24 0 05/07/25 History wf-jsakzbxsftqn-gugvpyuw powder effervescent pack (Emergen-C Immune Plus) Is last menstrual period known: Yes Last Menstrual Period: 05/06/25 Post menopausal: No Patient : No : No PFSH Medical History Abnormal EKG Fatigue SOB (shortness of breath) Crohn's disease Celiac disease Weight gain, abnormal Biliary colic Anemia Anxiety, generalized IgA deficiency Non-celiac gluten sensitivity Malabsorption syndrome Metabolic syndrome Irritable bowel syndrome with diarrhea Abdominal pain GERD (gastroesophageal reflux disease) Gestational diabetes mellitus (GDM) Biliary dyskinesia Epigastric pain Acute hepatitis Pancytopenia Ovarian cyst Surgical History Hx of anterior cruciate ligament tear reconstruction H/O hemicolectomy History of cholecystectomy (~04/2020) S/P appendectomy S/P ACL surgery S/P tonsillectomy Family History Grandmother Diabetes Father Hypertension Grandfather Cancer Sister Crohn's disease Social History number of children: 3 current occupation: [employer] Smoking Status: Never smoker alcohol intake: current details: occasionally substance use type: does not use caffeine: Yes Type: coffee what type of physical activity do you participate in: aerobics frequency: 5-6 times per week seatbelt use: always do you feel safe at home: Yes additional social history: -Martin History 3 Elective abortions Hx Para 3 Spontaneous abortions Hx # Term Pregnancies Ectopic pregnancies Hx # Pregnancies Multiple births # of living children Past Pregnancies Del. Date Name GA/Weeks Outcome Route Bth Weight Gen Labor Lgth Anesthesia Del Barryatestefani Provider CONTRERAS 06/07/16 Radha 02/19/18 Ana 05/10/19 Jarred [facility] Encounter for routine gynecological examination Details: PROSPER HARRY is a 34 year old who presents for annual exam. Last PAP: 03/20/2024 - normal History of abnormal PAP: Last mammogram: not due History of abnormal mammogram: Colon cancer screening: March 2025 - Crohns Other preventative health care screenings: PCP Riki. GI . Friend. Female Reproductive History Last Menstrual Period: 05/06/25 Cycle Length: 21-35 Bleeding Duration: 5 Questions: metorrhagia: No, sexually active: Yes, dyspareunia: No and PCB: No Menopausal Symptoms: No hot flashes, No night sweats, No weight change, No mood changes, No difficulty concentrating, No sleep problems and No change in libido ROS Const Constitutional: Reports as per HPI; Denies fatigue, increased appetite, poor appetite, night sweats, weight gain or weight loss Cardio Card: Denies chest pain Resp Resp: Denies cough or dyspnea GI GI: Reports as per HPI; Denies abdominal pain, bloating, constipation, nausea or vomiting : Reports as per HPI and other; Denies difficulty voiding, dysuria, hematuria, hot flashes, nipple discharge, pelvic pain, prolapsesymptoms, urinary frequency, urinary incontinence, urinaryurgency, vaginal discharge, vaginal dryness, vaginal odor or vaginal pruritus Skin Skin/Breast: Denies changing lesions, breast mass, breast pain, breast skin changes or nipple discharge Psych Psych: Denies anxiety, change in libido, depression or difficulty concentrating Exam Const General: cooperative, healthy appearing, comfortable, no acute distress, well developed and well groomed HENOK Head: normal to inspection and normocephalic Ears: hearing grossly normal bilaterally and external ears normal Nose: external nose normal Face and sinus: normal facial exam Neck Neck: normal visual inspection, full ROM and no lymphadenopathy Thyroid: thyroid normal Chest Chest palpation & inspection: normal inspection of the chest Breast inspection: normal inspection of the breasts and normal inspection of theaxillae Breast palpation: normal palpation of the breasts, normal palpation of the axillae and no axillary lymphadenopathy Resp Effort & Inspection: normal respiratory effort GI Inspection: normal to inspection and non-distended Palpation: soft, no hepatosplenomegaly and no guarding Skin General: no rashes or lesions noted Neuro General: patient alert, moves all extremities and no focal motor deficits Extrem General: normal to inspection and no pedal edema Psych Appearance: grossly normal Mental Status: mental status grossly normal Affect: normal affect Speech and Movement: speech and movement normal Attitude: cooperative Coding Level of Care Code Off vis,est,prev 18-39yrs Diagnoses Encounter for gynecological examination with abnormal finding Z01.411 Gynecological examination findings: abnormal findings PRESENT Assessment and Plan Assessment and Plan (1) Encounter for routine gynecological examination: Qualifiers: Gynecological examination findings: abnormal findings PRESENT QualifiedCode(s): Z01.411 - Encounterfor gynecological examination (general) (routine) with abnormal findings Plan Cervical cancer screening: pap hpv up to date Breast cancer screening: mamm age 40 other health maintenance examination reviewed and orders placed if needed. Encouraged maintenance of a healthy weight and active lifestyle and handout given. Annual exam handout including recommendations for good health guidelines, Calcium/vitamin D recommendations, and basic screening information given. Problem list up to date, see problem list details for any additional plan information. Follow up in one year for annual health maintenance exam or sooner if needed. 05/07/25 [id number] anna SANZ> Date _ Natasha Lindsey MD Cosign Signature: Date (if applicable) CC: ~ [facility]05-06-2025 Radiology Diagnostic study note [facility] Imaging Services [facility] [place], [place] [id number] Chest PA and Lateral MR#: [id number] Acct: [id number] Name: PROSPER HARRY Rep #: [id number] : 1990 F 34 From: Miguelangel Murrieta MD PCP: Dr. Ambreen Lyn MD Status: REG CLI Study:Chest PA and Lateral Date of Exam: 02/12/25 Exam# [id number] Ordering Dr: Zara Lr MD PROCEDURE: CHEST PA AND LATERAL 02/12/2025 REASON FOR EXAM: ARTHRITIS IN CROHN'S DISEASE TECHNIQUE: Frontal and lateral views of the chest. FINDINGS: The lungs appear clear. Pulmonary vascularity appears within limits. No pleural effusion. The cardiac and mediastinal contours appear within limits. Mild S shaped thoracolumbar curvature. RAD/Chest PA and Lateral IMPRESSION: No evidence of acute disease. Reading Location: [id number] CC: Dr. Ambreen Lyn MD; Dr. 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 FALL SCREENING: Has the patient had 2 falls in the last year or 1 fall with injury or currently using an Ambulatory Assistive Device (Walker, Cane, Wheelchair, Crutches, etc.)? No PATIENT GENDER DATA: Assigned female at . status: : No status:NO. PATIENT RELEVANT IMPLANT DATA REVIEWED: Not Applicable PATIENT PRESENTS WITH AN IMPLANTABLE OR ATTACHED MANAGING CONSULTANT CLINICAL PROFESSOR: No RADIOLOGY DEPARTMENT: General X-ray: Exam(s) Completed: Spine X-Ray(s): Lumbar AP / LAT / L5-S1 Pelvis X-Ray: sacroiliac joints Lower Extremity X-Ray(s): Knee, AP Only Bilateral Upper Extremity X-Ray(s): Hand, bilateral PERIPHERAL IV DATA: Not applicable SIGNED BY: Gracie Woodward January 16, 2025 5:18 PM [facility] NoteHNO ID: [id number] Author: EMILY FITZPATRICK Tech Service: ? Author Type: Technologist Type: Progress Notes Filed: 01/16/2025 17:48 Note Text: Radiology Service Progress Note PATIENT NAME: Prosper Harry DATE OF SERVICE: January 16, 2025 TIME: 5:18 PM PATIENT IDENTITY VERIFICATION COMPLETED USING TWO (2) IDENTIFIERS: Name and Date of confirmed by patient verbally. FALL SCREENING: Has the patient had 2 falls in the last year or 1 fall with injury or currently using an Ambulatory Assistive Device (Walker, Cane, Wheelchair, Crutches, etc.)? No PATIENT GENDER DATA: Assigned female at . status: : No status: NO. PATIENT RELEVANT IMPLANT DATA REVIEWED: Not Applicable PATIENT PRESENTS WITH AN IMPLANTABLE OR ATTACHED MANAGING CONSULTANT CLINICAL PROFESSOR: No RADIOLOGY DEPARTMENT: General X-ray: Exam(s) Completed: Spine X-Ray(s): Lumbar AP / LAT / L5-S1 Pelvis X-Ray: sacroiliac joints Lower Extremity X-Ray(s): Knee, AP Only Bilateral Upper Extremity X-Ray(s): Hand, bilateral PERIPHERAL IV DATA: Not applicable SIGNED BY: Gracie Woodward January 16, 2025 5:18 [facility]04-08-2025 NoteHNO ID: [id number] Author: SHAYY STORY MD Service: ? Author Type: Physician Type: Progress Notes Filed: 01/16/2025 15:01 Note Text: VIRTUAL VISIT PROGRESS NOTE This is a virtual visit using Intr[employer] Video Visit. It required patient-provider interaction for the medical decision making as documented below. I have communicated my name and active licensure. The patient's identity and physical location were verified at the time of this visit. Either the patient or their legal termite control service representative has been informed of the risks and benefits of -- and alternatives to -- treatment through a remote evaluation and consents to proceed with the evaluation remotely. Prosper Harry is a 34 year old female seen for joint pain. EOE, celiac disease, fatty liver, Crohn's disease . On stelara. Hand pain, stiffness, knee pain, fatigue, brain fog. Pain is worse in the mornings. Pain does not fully ever go away. Swelling in the hands. Status post right hemicolectomy for ruptured appendicitis in 2010. Low back stiffness. Family h/o autoimmune disease - sister with crohns Smoking - never ,Rheumatology REVIEW OF SYSTEMS: Constitutional: Recent Weight Change: YES gained 20 lb Fatigue: YES Fever: No Night sweats: No Heent: Alopecia: No H/o Inflammatory eye disease (iritis/scleritis): No Hearing loss: No Frequent sinusitis: No Oral ulcers: No Sicca: No Parotid swelling: No Hoarseness: No Dysphagia: No Heme/lymph: Lymphadenopathy: No Hematological abnormalities (anemia, thrombocytopenia, leukopenia): No Abnormal bleeding: No Skin: Malar or discoid lesions: No Photosensitivity: No Other rashes: No Raynaud's phenomenon: No Hives: YES neck chest face Tightness: No Nodules/bumps: No Easy Bruising: No Nail changes: No H/o psoriasis: No Gastroenterology: Nausea: No Vomiting: No Change in bowel movements: No Heartburn: No Respiratory: Dry cough/SOB: No Cardiovascular: Pain in chest: No Musculoskeletal: Per HPI Genitourinary: Vaginal dryness: No Rash/ulcers: No Neurological: Headaches: No Sensitivity or pain of hands and/or feet: No Psychiatry: Anxiety: No Depression: No Poor sleep: YES non restful H/o loss: No H/o thrombosis: No Increased susceptibility to infection: No HISTORY REVIEWED (electronic chart updated): PAST MEDICAL HISTORY Diagnosis Date Allergic rhinitis Dr. Vick Angioedema of lips Dr. Vick (tongue and lip swelling) Cellulitis and abscess of unspecified site from ruptured appendix (March 2011--resolved) Crohn's colitis (HCC) Urticaria Dr. Vick PAST SURGICAL HISTORY Procedure Laterality Date COLONOSCOPY FLX DX W/COLLJ SPEC WHEN PFRMD 04/17/2011 Colonoscopy COLONOSCOPY W/BIOPSY SINGLE/MULTIPLE 04/27/11 DEBRIDEMENT OPEN WOUND 20 SQ CM/< 04/24/11 Debride RLQ wound LAPS COLECTOMY PRTL W/RMVL TERMINAL ILEUM 88 lap right PAST SURGICAL HISTORY OF appendix removal March and May 2011 PAST SURGICAL HISTORY OF 2007 left Acl repair TONSILLECTOMY HX 2005 FAMILY HISTORY Problem Relation Age of Onset Hypertension Father other (depression) Father Diabetes Maternal Grandmother Diabetes Paternal Grandmother Heart Paternal Grandmother Blood Disease Paternal Grandfather Prostate Cancer Paternal Grandfather other (crohn's) Sister Social History Tobacco Use Smoking status: Never Smokeless tobacco: Never Vaping Use Vaping status: Never Used Substance Use Topics Alcohol use: No Drug use: No Current Outpatient Medications Medication Sig Cholecalciferol, Vitamin D3, 25 mcg (1,000 unit) cap Take 25 mcg by mouth once daily. omeprazole (PRILOSEC) 40 mg capsule Take 1 capsule by mouth every 12 hours. STELARA 90 mg/mL injection 90 mg every 8 weeks. Zinc Acetate, Oral, 50 mg (zinc) cap Take by mouth. magnesium oxide 200 mg magnesium tab Take by mouth. fexofenadine HCl (WILLOW ALLERGY ORAL) Take by mouth. No current facility-administered medications for this visit. ALLERGIES Allergen Reactions Morphine Swelling REVIEW OF SYSTEMS: All other ROS: negative As noted in HPI PHYSICAL EXAMINATION: VIDEO EXAM: (if completed, performed via video enabled technology) GENERAL: alert and appropriate, in no distress, well-hydrated, well nourished, and happy, smiling, interactive ALOK, ARMOND neg, ANCA neg ASSESSMENT: (M25.50) Pain in joint, multiple sites (primary encounter diagnosis) (E55.9) Vitamin D deficiency (M19.90) Inflammatory arthritis PLAN: 34 year old female with celiac, EOE, crohns disease is here for follow up. Inflammatory arthritis cannot be ruled out. She may need additional DMARDs like MTX or imuran. She is on Stelara currently per GI. Close follow ups There are no Patient Instructions on file for this visit. I spent a total of 40 minutes on the date of the service which included preparing to see the patient, [id number] patient care, complet (more content not included)...[facility]04-08-2025 History of Present illness Narrative* Shayy Story MD - 01/16/2025 11:37 AM EDT VIRTUAL VISIT PROGRESS NOTE This is a virtual visit using AudienceViewt Zoom Video Visit. It required patient- provider interaction for the medical decision making as documented below. I have communicated my name and active licensure. The patient's identity and physical location wereverified at the time of this visit. Either the patient or their legal termite control service representative has been informed of the risks and benefits of -- and alternatives to -- treatment through a remote evaluation andconsents to proceed with the evaluation remotely. Prosper Harry is a 34 year old female seen for joint pain. EOE, celiac disease, fatty liver, Crohn's disease . On stelara. Hand pain, stiffness, knee pain, fatigue, brain fog. Pain is worse in the mornings. Pain does not fully ever go away. Swelling in the hands. Status post right hemicolectomy for ruptured appendicitis in 2010. Low back stiffness. Family h/o autoimmune disease - sister with crohns Smoking - never ,Rheumatology REVIEW OF SYSTEMS: Constitutional: Recent Weight Change: YES gained 20 lb Fatigue: YES Fever: No Night sweats: No Heent: Alopecia: No H/o Inflammatory eye disease (iritis/scleritis): No Hearing loss: No Frequent sinusitis: No Oral ulcers: No Sicca: No Parotid swelling: No Hoarseness: No Dysphagia: No Heme/lymph: Lymphadenopathy: No Hematological abnormalities (anemia, thrombocytopenia, leukopenia): No Abnormal bleeding: No Skin: Malar or discoid lesions: No Photosensitivity: No Other rashes: No Raynaud's phenomenon: No Hives: YES neck chest face Tightness: No Nodules/bumps: No Easy Bruising: No Nail changes: No H/o psoriasis: No Gastroenterology: Nausea: No Vomiting: No Change in bowel movements: No Heartburn: No Respiratory: Dry cough/SOB: No Cardiovascular: Pain in chest: No Musculoskeletal: Per HPI Genitourinary: Vaginal dryness: No Rash/ulcers: No Neurological: Headaches: No Sensitivity or pain of hands and/or feet: No Psychiatry: Anxiety: No Depression: No Poor sleep: YES non restful H/o loss: No H/o thrombosis: No Increased susceptibility to infection: No\ HISTORY REVIEWED (electronic chart updated): PAST MEDICAL HISTORY Diagnosis Date Allergic rhinitis Dr. Vick Angioedema of lips Dr. Vick (tongue and lip swelling) Cellulitis and abscess of unspecified site from ruptured appendix (March 2011--resolved) Crohn's colitis (HCC) Urticaria Dr. Vick PAST SURGICAL HISTORY Procedure Laterality Date COLONOSCOPY FLX DX W/COLLJ SPEC WHEN PFRMD 04/17/2011 Colonoscopy COLONOSCOPY W/BIOPSY SINGLE/MULTIPLE 04/27/11 DEBRIDEMENT OPEN WOUND 20 SQ CM/< 04/24/11 Debride RLQ wound LAPS COLECTOMY PRTL W/RMVL TERMINAL ILEUM 8-8-11 lap right PAST SURGICAL HISTORY OF appendix removal March and May 2011 PAST SURGICAL HISTORY OF 2007 left Acl repair TONSILLECTOMY HX 2005 FAMILY HISTORY Problem Relation Age of Onset Hypertension Father other (depression) Father Diabetes Maternal Grandmother Diabetes Paternal Grandmother Heart Paternal Grandmother Blood Disease Paternal Grandfather Prostate Cancer Paternal Grandfather other (crohn's) Sister Social History Tobacco Use Smoking status: Never Smokeless tobacco: Never Vaping Use Vaping status: Never Used Substance Use Topics Alcohol use: No Drug use: No Current Outpatient Medications Medication Sig Cholecalciferol, Vitamin D3, 25 mcg (1,000 unit) cap Take 25 mcg by mouth once daily. omeprazole (PRILOSEC) 40 mg capsule Take 1 capsule by mouth every 12 hours. STELARA 90 mg/mL injection 90 mg every 8 weeks. Zinc Acetate, Oral, 50 mg (zinc) cap Take by mouth. magnesium oxide 200 mg magnesium tab Take by mouth. fexofenadine HCl (WILLOW ALLERGY ORAL) Take by mouth. No current facility-administered medications for this visit. ALLERGIES Allergen Reactions Morphine Swelling REVIEW OF SYSTEMS: All other ROS: negative As noted in HPI PHYSICAL EXAMINATION: VIDEO EXAM: (if completed, performed via video enabled technology) GENERAL: alert and appropriate, in no distress, well-hydrated, well nourished, and happy, smiling, interactive ALOK, ARMOND neg, ANCA neg ASSESSMENT: (M25.50) Pain in joint, multiple sites (primary encounter diagnosis) (E55.9) Vitamin D deficiency (M19.90) Inflammatory arthritis PLAN: 34 year old female with celiac, EOE, crohns disease is here for follow up. Inflammatory arthritis cannot be ruled out. She may need additional DMARDs like MTX or imuran. She is on Stelara currently per GI. Close follow ups There are no Patient Instructions on file for this visit. I spent a total of 40 minutes on the date of the service which included preparing to see the patient, [id number] patient care, completing clinical documentation, obtaining and/or reviewing separately obtained history, performing a medically appropriate examination, counseling and educating the pat ient/family/caregiver, ordering medications, tests, or procedures, independently interpreting results (not separately reported), and communicating results to the patient/family/caregiver Shayy Story MD [facility] on 01/16/25 XR LUMBAR GENERAL 3V AP/LAT/L5-S1 XR SACROILIAC JOINTS 2V AP PELVIS/FERGUESON XR HAND GENERAL 3V PA/LAT/OBL LEFT XR HAND GENERAL 3V PA/LAT/OBL RIGHT XR KNEE SURVEY ARTHRITIS 1V AP BILATERAL HEPATITIS B SURFACE ANTIGEN HEPATITIS B SURFACE ANTIBODY HEPATITIS C ANTIBODY IA WITH CONFIRMATION HEPATITIS B CORE ANTIBODY TOTAL RHEUMATOID FACTOR CCP ANTIBODY IGG VITAMIN D 25 HYDROXY COMPLETE BLOOD COUNT AND DIFFERENTIAL COMPREHENSIVE METABOLIC PANEL C-REACTIVE PROTEIN SEDIMENTATION RATE, WESTERGREN URINALYSIS (WITH MICROSCOPIC) WITH CULTURE IF INDICATED CREATININE RANDOM URINE PROTEIN RANDOM URINE TPMT PHENOTYPE/ENZYME ACTIVITY No orders of the defined types were placed in this encounter. documented in this encounterC[facility] Evaluation note* Diagnosis Onset Date Resolution Status Admit Date Abnormal EKG acute November 12:57pm Celiac disease acute December 14, 2024 3:21pm Crohn's disease acute December 3:21pm Malabsorption syndrome acute [facility] 2024 3:21pm Weight gain acute December 14 3:21pm Eosinophilic esophagitis chronic December 14, 2024 3:21pm NAFLD (nonalcoholic fatty liver disease) chronic December 14, 2024 3:21pm Bloating resolved December 14 3:21pm IBS (irritable bowel syndrome) resol zenia December 14, 2024 3:21pm Fatigue acute January 03 2:09pm [facility] Work Phone: [phone]) 583-313501-17-2025 History of Present illness Narrative* Alla Knight DO - 10/27/2024 4:08 PM EST 54:08 PM Reason for Visit: Consult History of Present Illness: Prosper Harry is a 33 year old white female who presents for transfer ofGI care. Patient is here with her today. Patient has multiple GI diagnoses including EOE, celiac disease, fatty liver, Crohn's disease. Patient has a history of right lower quadrant abdominalpain that is sharp in nature occurring about 3 times per week. This pain sometimes does get better after bowel movements. She has erratic bowel habits with a bowel movement every 2 days to up to 4 times daily. Patient does have fecal urgency at times. She denies hematochezia, melena, nausea, vomiting, unintentional weight loss, regular NSAID use. Patient was diagnosed with celiac disease in spring 2023 and has been on a gluten-free diet since 2022. Patient was previously told that her abdominalpain problems were due to IBS, but multiple colonoscopies have shown terminal ileal ulcers, and patient was started on Stelara in 09/2024 for Crohn's disease diagnosis. Patient has no history of dysphagia, however she had an EGD previously that was done for abdominal pain and showed increased general eosinophils, so she was diagnosed with EOE and put on Dupixent. She took this for 1 year, but then stopped it a year ago after she was told she does not need to be on it because repeat EGD showed no increased eosinophils in the esophagus. Labs/imaging: - Patient had labs in 02/2024 that showed elevated CRP and borderline elevation of fecal calprotectin. The fecal calprotectin subsequently normalized on repeat testing in 07/2024. - Patient had an MR enterography on 10/23/2024 that was within normal limits. - CT scan of the abdomen pelvis 11/18/2023 showed possible mild, diffuse colitis. Procedures: - EGD 09/11/2024 revealed linear gastric ulcers, duodenal biopsies negative, gastric biopsies negative for H. pylori. - Colonoscopy 09/11/2024 revealed aphthous ulcerations in the distal ileum and terminal ileum with focal active enteritis in the terminal ileum, cryptitis and crypt abscesses on pathology. - Small bowel capsule study done 02/07/2024 revealed diffuse intermittent enteritis of unknown causeand an area of stricture in the small bowel at 3 hours. - Colonoscopy 12/01/2023 revealed patchy inflammation characterized by erythema and granularity and aphthous ulcerations in the terminal ileum. Biopsies of this area were consistent with acute and chronic inflammation. - Liver elastography for fatty liver showed a kPa of 9.2 in 08/2022. - Liver elastography 04/2023 revealed kPa of 4.4. 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 IBD history/IBD surgery history: - Diagnosed with Crohn's disease 09/2024 based on multiple distal and terminal ileum ulcers with biopsies showing inflammation on multiple previous colonoscopies. Patient was started on Stelara in 09/2024. - Patient had a right hemicolectomy for ruptured appendicitis in 05/2011. Greater than 60 minutes spent in this patient's care today, including reviewing greater than 100 pages of previous records with greater than 50% of the time spent counseling the patient. PAST MEDICAL HISTORY Diagnosis Date Allergic rhinitis Dr. Vick Angioedema of lips Dr. Vick (tongue and lip swelling) Cellulitis and abscess of unspecified site from ruptured appendix (March 2011--resolved) Crohn's colitis (HCC) Urticaria Dr. Vick PAST SURGICAL HISTORY Procedure Laterality Date COLONOSCOPY FLX DX W/COLLJ SPEC WHEN PFRMD 04/17/2011 Colonoscopy COLONOSCOPY W/BIOPSY SINGLE/MULTIPLE 04/27/11 DEBRIDEMENT OPEN WOUND 20 SQ CM/< 04/24/11 Debride RLQ wound LAPS COLECTOMY PRTL W/RMVL TERMINAL ILEUM 05-18-11 lap right PAST SURGICAL HISTORY OF appendix removal March and May 2011 PAST SURGICAL HISTORY OF 2006 left Acl repair TONSILLECTOMY HX 2004 Social History Tobacco Use Smoking status: Never Smokeless tobacco: Never Vaping Use Vaping status: Never Used Substance Use Topics Alcohol use: No Drug use: No Patient was at home with her and 3 children. 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 She deniestobacco or illicit drug use. Occasionally drinks alcohol. FAMILY HISTORY Problem Relation Age of Onset Hypertension Father other (depression) Father Diabetes Maternal Grandmother Diabetes Paternal Grandmother Heart Paternal Grandmother Blood Disease Paternal Grandfather Prostate Cancer Paternal Grandfather other (crohn's) Sister Patient denies family history of GI malignancy, celiac disease or liver disease. Her sister has Crohn's disease. Current Outpatient Medications on File Prior to Visit Medication Sig Cholecalciferol, Vitamin D3, 25 mcg (1,000 unit) cap Take 25 mcg by mouth once daily. omeprazole (PRILOSEC) 40 mg capsule Take 1 capsule by mouth every 12 hours. STELARA 90 mg/mL injection 90 mg every 8 weeks. Zinc Acetate, Oral, 50 mg (zinc) cap Take by mouth. magnesium oxide 200 mg magnesium tab Take by mouth. fexofenadine HCl (WILLOW ALLERGY ORAL) Take by mouth. No current facility-administered medications on file prior to visit. ALLERGIES Allergen Reactions Morphine Swelling REVIEW OF SYSTEMS: As per HPI. All other review of systems is negative. PHYSICAL EXAM: BP 143/80 (BP Site: Right Arm, BP Position: Sitting) Pulse 97 Ht 167.6 cm (5' 6) Wt 77.1 kg (170 lb) LMP 02/03/2021 BMI 27.44 kg/m Last 1 Encounter Wt Readings: Date: Wt: 10/27/2024 77.1 kg (170 lb) HEENT: Mucous membranes are moist. PERRL. Sclera are without icterus. Lungs: clear to auscultation bilaterally Heart: regular rate and rhythm Abdomen: soft, non-tender, non-distended, bowel sounds are present, no organomegaly or masses palpated. Extremities: no edema Neuro: Patient is A and O 3 cranial nerves are grossly intact. Labs: WBC (k/uL) Date Value 10/13/2024 9.26 11/03/2019 4.45 MCV (fL) Date Value 10/13/2024 87.6 11/03/2019 83.1 Platelet Count (k/uL) Date Value 10/13/2024 287 11/03/2019 256 Sodium (mmol/L) Date Value 10/13/2024 138 11/03/2019 140 Potassium (mmol/L) Date Value 10/13/2024 4.0 11/03/2019 4.3 CO2 (mmol/L) Date Value 10/13/2024 23 11/03/2019 24 BUN (mg/dL) Date Value 10/13/2024 10 11/03/2019 9 AST (U/L) Date Value 10/13/2024 29 11/03/2019 70 ALT (U/L) Date Value 10/13/2024 56 11/03/2019 109 Alkaline Phosphatase (U/L) Date Value 10/13/2024 54 11/03/2019 57 Bilirubin, Total (mg/dL) Date Value 10/13/2024 0.2 11/03/2019 0.2 Albumin (g/dL) Date Value 10/13/2024 4.8 11/03/2019 4.7 No results found for this or any previous visit. Assessment : 1. 33-year-old white female with small bowel Crohn's disease. 2. History of EOE diagnosis -was on Dupixent for 1 year, has been off since 2023. Of note, patient was never symptomatic with dysphagia. 3. Status post right hemicolectomy for ruptured appendicitis in 2010. 4. 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 5. Nonalcoholic fatty liver disease, kPa of 9.2 in 08/2022, then kPa 4.4 in 04/2023. 6. Erratic bowel habits with fecal urgency -suspect chronic constipation. Plan: 1. Prescription for Linzess 72 mcg once daily. 2. Continue Stelara injections. Patient has already received first infusion with her previous GI. 3. Decrease omeprazole to 40 mg once daily for now. 4. Patient was advised to minimize all NSAID use. 5. Patient was offered consultation with our fatty liver department, however she deferred at this time. 6. Follow-up in 4 months. Will plan on repeat colonoscopy 6 months from now. Likely get labs and fecal calprotectin at next follow-up appointment. Will consider setting up repeat FibroScan to monitorfatty liver at next appointment. Thank you for allowing me to participate in the care of your patient. Should you have any further questions, please do not hesitate to contact me. Alla Knight DO Portions of this chart may have been created with voice recognition software. Occasional wrong-wordor sound-alike ?substitutions may have occurred due to the inherent limitations of voice recognition software. Read the chart carefully and recognize, using context, where these substitutions have occurred. documented in this encounterC[facility]01-[facility] Telephone encounter Note * Telephone Encounter - Yanna Gil MA - 10/27/2024 9:04 AM ESTSummary: Records. Dr. Knight, patients records are in scanned documents. She is coming in this afternoon for her appt. Please review. Thank you! Yanna Gil MA [facility]01-17-2025 Miscellaneous Notes* Telephone Encounter - Yanna Gil MA - 10/27/2024 9:04 AM ESTSummary: Records. Dr. Knight, patients records are in scanned documents. She is coming in this afternoon for her appt. Please review. Thank you! Yanna Gil MA documented in this encounterC[facility]01-03-2025 HvynLBVX-TND-2 (AGENT OF COVID-19) RNA: Not detected INFLUENZA A RNA: Not detected INFLUENZA B RNA: Not detected RESPIRATORY SYNCYTIAL VIRUS (RSV) RNA: Not detectedMedina HospitalComment on above:Performed By: #### [id number] ####[facility] LABORATORYCLIA [id number] [place] [address] [facility] [id number] [facility] Medical Records Department [address] [place] [address] History Physical Exam 09/11/24 0632 MR#: [id number] Acct: [id number] Name: PROSPER HARRY Rep #: [id number] : 1990 33 From: Samuel Friend DO PCP: Dr. Ambreen Lyn MD [place] [facility] [place] [address] History and Physical Date of Admission: 09/11/24 PROSPER HARRY, is a 33 F who presents to the office today for follow up. WSA established previously ? EGD 3.3.20 variable Zline 36cm; 1cm hiatal hernia; gastritis with friable mucosa. H.Pylori negative. ? Laparoscopic cholecystectomy 05.01.20 with lysis of adhesions. ? EGD and colonoscopy .22 EGD gastritis; esophagitis with EOE changes and >20 eosinophil presence. ? Colonoscopy internal hemorrhoids; end-to-end colo-colonic anastomosis. *BGI established 07.03.22 with previously diagnosed EOE managed with omeprazole 20mg QD and loose stools with FH Crohn???s disease. Start cholestyramine ? Biochemical CBC, ESR, CMP, LFT, CRP, LDH, ALOK comp, ANCA, GAME, INGRID, IBD without pertinent abnormality ? Stool calprotectin, elastase, c.difficile, EP, O/P, giardia WNL? Lactoferrin + ? US and elastography 08.25.22 hepatic measurement 16.1cm with fatty infiltration, stiffness 9.2kPa OV 09.01.22 with improvement of loose stools. Start ursodiol ? Biochemical triglycerides H211, LDL H42 ? Start Dupixent OV 03.01.23 for IBS, EOE, NAFLD follow up. Currently having difficulty with bloating, suspect SIBO, Start doxycycline. ? US and elastography 04.15.23 hepatic measurement 18.6cm with fatty infiltration, stiffness 4.4kPa Contact 04.21.23 with US/elastography update; continue current medications OV 08.30.23 feels she is doing well. Dupixent continues without difficulty. No swallowing issues. OV 02.28.24 OV 08.30.24 pt reports 1-2 loose bm daily for the past 1-2 months; endorses blood in stool, but states that she has a hx of hemorrhoids and is unsure is that's where the bleeding is coming from. Pt reports intermittent sharp abd pain, unable to pinpoint trigger. Pt notes gas and bloating even when she has not eaten anything. ROS Const Constitutional: No fatigue, fever(s) or weight change ENT ENT: No difficulty swallowing Gastro GI: Positive for abdominal pain, bloating, diarrhea, excessive flatus and Blood in stool; No belching, change in bowel habits, change in stool character, coffee ground emesis, constipation, cramping, heartburn, difficulty swallowing, feeling full early, incontinent of stools, Vomiting blood/hematemesis, loose stools, Black,tarry stools, nausea/dyspepsia, pain with swallowing, vomiting or other Musc Musculoskeletal: No joint pain Skin Skin: No yellowing of the eye or itchy eyes Psych Psychiatric: No anxiety and No depression Endo Endocrine: No fatigue or weight change Aller/Imm Allergy/Immunologic: No itchy eyes Prakash/Lymp Hematologic/Lymphatic: No easy bleeding or easy bruising Exam Const General: cooperative and healthy appearing [facility] Head: normal to inspection Ears: hearing grossly normal bilaterally, TM's normal bilaterally and EAC's normal Nose: nasal discharge purulent Face and sinus: sinus tenderness frontal and maxillary Mouth: oral mucosae normal Throat: abnormal tonsil bilaterally erythema and hypertrophy 1+ and postnasal drainage Resp Effort Inspection: normal respiratory effort Auscultation: Bilateral: Clear to Auscultation Cardio Palpation: normal PMI Rate: regular rate Rhythm: regular rhythm Neuro General: patient alert and CN's II-XI intact bilaterally Psych Appearance: grossly normal Mental Status: mental status grossly normal Assessment and Plan Assessment and Plan (1) Eosinophilic esophagitis: Status: Chronic Plan: Continue Dupixent qwk. We will repeat her upper endoscopy with biopsies throughout the esophagus. At this time she is off of Dupixent as her previous biopsies that showed that she does not have eosinophilic esophagitis at this time. We will continue her on PPI therapy for now. (2) NAFLD (nonalcoholic fatty liver disease): Status: Chronic Plan: Continue vitamin E. She took ursodiol x 6 mos. Update elastography, will contact her with result. 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 This would explain the confirmation that was seen on the biopsies of the small bowel. She will remain o (more content not included)...[facility]11-30-20[facility] Evaluation note* Diagnosis Onset Date Resolution Status Admit Date Sinus infection acute September 09, 2024 8:30am Celiac disease acute September 152023 7:51am Crohn's disease acute September 15, 2024 7:51am Eosinophilic esophagitis chronic September 15, 2024 7:51am NAFLD (nonalcoholic fatty liver disease) chronic September 15 7:51am Bloating resolved September 15, 2024 7:51am IBS (irritable bowel syndrome) resol zenia September 15, 2024 7:51am Abnormal EKG acute November 12:57pm Celiac disease acute December 14, 2024 3:21pm Crohn's disease acute December 3:21pm Malabsorption syndrome acute [facility] 2024 3:21pm Weight gain acute December 14 3:21pm Eosinophilic esophagitis chronic December 14, 2024 3:21pm NAFLD (nonalcoholic fatty liver disease) chronic December 14, 2024 3:21pm Bloating resolved December 14 3:21pm IBS (irritable bowel syndrome) resol zenia December 14, 2024 3:21pm Fatigue acute January 03 2:09pm [facility] Work Phone: 1(514) 439-194311-20-2024 Evaluation note* Diagnosis Onset Date Resolution Status Admit Date Eosinophilic esophagitis chronic August 30, 2024 3:36pm NAFLD (nonalcoholic fatty liver disease) chronic August 30, 2 024 3:36pm Bloating resolved August 30, 2024 3:36pm IBS (irritable bowel syndrome) resol zenia August 30, 2024 3:36pm Sinus infection acute September 09, 2024 8:30am Celiac disease acute September 152023 7:51am Crohn's disease acute September 15, 2024 7:51am Eosinophilic esophagitis chronic September 15, 2024 7:51am NAFLD (nonalcoholic fatty liver disease) chronic September 15 7:51am Bloating resolved September 15, 2024 7:51am IBS (irritable bowel syndrome) resol zenia September 15, 2024 7:51am Abnormal EKG acute November 12:57pm Celiac disease acute December 14, 2024 3:21pm Crohn's disease acute December 3:21pm Malabsorption syndrome acute [facility] 2024 3:21pm Weight gain acute December 14 3:21pm Eosinophilic esophagitis chronic December 14, 2024 3:21pm NAFLD (nonalcoholic fatty liver disease) chronic December 14, 2024 3:21pm Bloating resolved December 14 3:21pm IBS (irritable bowel syndrome) resol zenia December 14, 2024 3:21pm [facility] Work Phone: 1(311) 202-329902-21-2024 Procedure [facility] 12-01-2023 Procedure [facility]12-06-2023 Procedure note [facility]12-06-2023 Procedure [facility] 03-11-2023 NotePap Smear Specimen AdequacyJune 2022 2:20pmComment. Satisfactory for evaluation. Endocervical and/or squamous metaplasticcells (endocervical component)are present.[facility] INTER[facility]ACED A#[id number] Health Urbana HospitalComment on above:Satisfactory for evaluation. Endocervical and/or squamous metaplasticcells (endocervical component)are present.03-11-2023 NotePap Smear Specimen AdequacyJune 2022 2:20pmComment.Satisfactory for evaluation. Endocervical and/or squamous metaplasticcells (endocervical component)are present.[facility] INTER[facility]ACED A#[id number] Health Urbana Hospital Comment on above:Satisfactory for evaluation. Endocervical and/or squamous metaplasticcells (endocervical component)are present.02-15-2023 Instructions* Patient Instructions* Madison Lang PA-C - 02/15/2023 10:16 AM [...] answered Madison Lang PA-C [facility] History of Present illness Narrative* Madison Lang PA-C - 02/15/2023 10:01 AM EDT Images from the original note were not [...] pressure and aching in the cheeks. Flonase, willow, and night time decongestants are not helping. Denies fever, chills, sweats, or fatigue. Patient denies wheezing, shortness of breath, increased WOB, or chest pain. COVID exposure: none Influenza exposure: none RSV exposure: none Covid Immunization Dates Overdue - COVID-19 VACCINE (4 - Booster for Pfizer series) Overdue since 10/24/2021 08/29/2021 Imm Admin: COVID-19 vaccine, age 12+ yr (Jaunt-Hydrocision - PURPLE TOP) 01/30/2021 Outside Immunization: COVID-19, [...] 4 -5weeks ago for sinus and bilateral AOM-completed it about 3 weeks ago but she [...] without pain. No spinous process tenderness or musculartenderness. Lymphadenopathy: Head: Right side of head: No [...] which included preparing to see the patient, [id number] patient care, completing clinical documentation, performing a medically appropriate examination, counseling and educating the patient/family/caregiver, and ordering medications, tests,or procedures. documented [facility] History of Past illness Narrative* Problem Noted Date Resolved Date Phlegmon 04/24/2011 07/13/2018 Abscess 04/24/2011 07/13/2018 documented as of this encounter (statuses as of 02/15/2023) [facility] Diagnosis Onset Date Resolution Status Diarrhea acute GERD (gastroesophageal reflux disease) acute Rectal bleeding acute [facility] Work Phone: Evaluation note* Diagnosis Onset Date Resolution Status Diarrhea acute GERD (gastroesophageal reflux disease) acute Rectal bleeding acute Diarrhea acute Eosinophilic esophagitis acu te GERD (gastroesophageal reflux disease) acute Non-celiac gluten sensitivity acute [facility] Work Phone: Evaluation note* Diagnosis Onset Date Resolution Status Diarrhea acute GERD (gastroesophageal reflux disease) acute Rectal bleeding acute Diarrhea acute Eosinophilic esophagitis acu te GERD (gastroesophageal reflux disease) acute Non-celiac gluten sensitivity acute Acute bronchitis acute [facility] Work Phone: Evaluation note* Diagnosis Onset Date Resolution Status Diarrhea acute GERD (gastroesophageal reflux disease) acute Rectal bleeding acute Diarrhea acute Eosinophilic esophagitis acu te GERD (gastroesophageal reflux disease) acute Non-celiac gluten sensitivity acute Acute bronchitis acute Eosinophilic esophagitis acu te GERD (gastroesophageal reflux disease) acute Irritable bowel syndrome with diarrhea acute NAFLD (nonalcoholic fatty liver disease) acute [facility] Work Phone: Evaluation note* Diagnosis Onset Date Resolution Status Acute bacterial sinusitis ac [place] Acute bilateral otitis media acute [facility] Work Phone: Evaluation note* Diagnosis Bacterial sinusitis- Primary Unspecified sinusitis (chronic) documented in this encounter [facility]* Diagnosis Onset Date Resolution Status Acute bacterial sinusitis ac [place] Acute bilateral otitis media acute Bloating chronic Eosinophilic esophagitis chr onic IBS (irritable bowel syndrome) chronic NAFLD (nonalcoholic fatty liver disease) chronic Climacteric acute Immunosuppressed status acut e Encounter for routine gynecological examination noneactive [facility] Work Phone: Evaluation note* Diagnosis Onset Date Resolution Status Bloating chronic Eosinophilic esophagitis chr onic IBS (irritable bowel syndrome) chronic NAFLD (nonalcoholic fatty liver disease) chronic Acute bacterial sinusitis ac [place] [facility] Work Phone: Evaluation note* Diagnosis Onset Date Resolution Status Acute bacterial sinusitis ac [place] Contusion of left forearm ac [place] Contusion of left hip acute Left wrist sprain acute [facility] Work Phone: Evaluation note* Diagnosis Celiac disease- Primary Crohn's disease of small intestine without complication (HCC) Regional enteritis of small intestine Eosinophilic esophagitis Fatty liver Other chronic nonalcoholic liver disease [facility] Pain in joint, multiple sites- Primary Vitamin D deficiency Unspecified vitamin D deficiency Inflammatory arthritis Unspecified inflammatory polyarthropathy Pain in joint, multiple sites [facility] Diagnosis Pain in joint, multiple sites [facility]* Diagnosis Onset Date Resolution Status Admit Date Encounter for routine gynecological examination noneactive April 112024 1:20pm [employer] Work Phone: History and physical note Author Samuel Nunez [facility] September 15, 2023 10:36am Note Date/Time September 15, 2023 1 0:36am [facility] Medical Records Department [address] [place] [address] History & Physical Exam 09/15/23 1036 MR#: [id number] Acct: [id number] Name: PROSPER HARRY Rep #:[id number] : 1990 32 From: Samuel Nunez DO PCP: Dr. Ambreen Lyn MD Status:[facility] Location: [place] [address] History and Physical Date of Admission: 09/15/23 PROSPER HARRY, is a 32 F who presents to the office today for 6 month f/u IBS, EOE, NAFLD. Previously she always had diarrhea predominant IBS. Now she has beendealing with constipation, having a BM q3-4 days. Just started metamucil powder,too soon to say if helpful. Her main concern at this time is abd bloating x 6 mos, started before she developed constipation. Irritable bowel syndrome with diarrhea -- no longer needs dicyclomine 10 mg BID,previously took it to manage diarrhea and spasms. Didn't tolerate cholestyramine. Lab panel not suggestive of IBD. She avoids gluten for possible non-celiac gluten sensitivity, although now wondering if avoiding gluten makes adifference. Eosinophilic esophagitis --diagnosed on EGD 06/2022. On PPI. Added Dupixent qwk 01/2023. Access Liaison recommended she decrease dairy intake by 80%; she has done so but no change in symptoms. GERD -- Continue PPI for now, may be able to d/c because taking Dupixent. No heartburn. No dysphagia. No nausea, vomiting. NAFLD -- hx elevated liver enzymes--she recalls they were elevated when she had mono and was , normal since then. Hx hepatosplenomegaly, now liver is normal size on US. 08/2022 Liver stiffness 9.2 kpa. Father has fatty liver. Treating with vitamin E 800 IU daily and rx ursodiol 250 mg bid. Took ursodiol x6 mos, but no longer covered by insurance. Long hx of GI issues. She had walled-off appendicitis requiring multiple surgeries age 20; was in the ICU at that time. Dr Leija did her surgeries. She was diagnosed with IBS after that, but symptoms improved spontaneously. Had cholecystectomy 04/2020. Her recent GI symptoms flared up after the of her son 3 yrs ago, then worsened Spring 2021. She had EGD and colonoscopy on 06/12/[address] Leija; diagnosed with eosinophilic esophagitis, internal hemorrhoids. Dr Leija felt her recent rectal bleeding was due to the internal hemorrhoids. Possible bile reflux on EGD. Patent functional end to end colo-colonic anastamosis. ROS Const Constitutional: Positive for fatigue and weight change ENT ENT: No difficulty swallowing Gastro GI: Positive for abdominal pain, bloating, change in bowel habits, constipation and excessive flatus; No belching, change in stool character, coffee ground emesis, cramping, diarrhea, heartburn, difficulty swallowing, feeling full early, incontinent of stools, Vomiting blood/hematemesis, Blood in stool, loose stools, Black,tarry stools, nausea/dyspepsia, pain with swallowing, vomiting or other Musc Musculoskeletal: No joint pain Skin Skin: No yellowing of the eye or itchy eyes Psych Psychiatric: No anxiety and No depression Endo Endocrine: Positive for fatigue and weight change Aller/Imm Allergy/Immunologic: No itchy eyes Prakash/Lymp Hematologic/Lymphatic: No easy bleeding or easy bruising Exam Const General: cooperative and comfortable Orientation: alert, awake and oriented x3 Quality Reporting Tobacco Screening ([facility] 138) Smoking Status: Never smoker Assessment and Plan Assessment and Plan (1) Bloating: Status: Chronic Plan: Bothersome x 6 mos, started before IBS switched from diarrhea to constipation. ?SIBO. Try course of doxycycline, let me know if that helps. (2) NAFLD (nonalcoholic fatty liver disease): Status: Chronic Plan: Continue vitamin E. She took ursodiol x 6 mos. Update elastography, will contacther with result. (3) Eosinophilic esophagitis: Status: Chronic Plan: Continue Dupixent qwk. (4) IBS (irritable bowel syndrome): Status: Chronic Plan: Previously bothered by diarrhea, now having constipation. If metamucil doesn't help, can consider Miralax or Fiber Choice tablets or kiwi supplement pills or probiotic. F/u 6 mos Orders: I have examined the patient and the H&P has been reviewed. There are no clinical changes since date of exam. 09/15/23 1036 <Electronically signed by Samuel Nunez DO> Cosigner Signature (if applicable): CC: Dr. Ambreen Lyn MD; Samuel Nunez DO~ Signed [facility] Work Phone: History and physical note Author Samuel Nunez [facility] December 01, 2023 9:49am Note Date/Time December 01, 2023 9:49am [facility] Medical Records Department [address] [place] [address] History & Physical Exam 12/01/23 0948 MR#: [id number] Acct: [id number] Name: PROSPER HARRY Rep #:[id number] : 1990 32 From: Samuel Nunez DO PCP: Dr. Ambreen Lyn MD Status:[facility] Location: [place] [address] History and Physical Date of Admission: 12/01/23 32 F who presents to the office today for WSA established previously ? EGD 12.12.19 variable Zline 36cm; 1cm hiatal hernia; gastritis withfriable mucosa. H.Pylori negative. ? Laparoscopic cholecystectomy 05.01.20 with lysis of adhesions. ? EGD and colonoscopy 06.12.22 EGD gastritis; esophagitis with EOE changes and >20 eosinophil presence. ? Colonoscopy internal hemorrhoids; end-to-end colo-colonic anastomosis. *BGI established 07.03.22 with previously diagnosed EOE managed with omeprazole 20mg QD and loose stools with FH Crohn?s disease. Start cholestyramine ? Biochemical CBC, ESR, CMP, LFT, CRP, LDH, ALOK comp, ANCA, GAME, INGRID, IBD without pertinent abnormality ? Stool calprotectin, elastase, c.difficile, EP, O/P, giardia WNL? Lactoferrin + ? US and elastography 08.25.22 hepatic measurement 16.1cm with fatty infiltration, stiffness 9.2kPa OV 09.01.22 with improvement of loose stools. Start ursodiol ? Biochemical triglycerides H211, LDL H42 ? Start Dupixent OV 03.01.23 for IBS, EOE, NAFLD follow up. Currently having difficulty with bloating, suspect SIBO, Start doxycycline. ? US and elastography 04.15.23 hepatic measurement 18.6cm with fatty infiltration, stiffness 4.4kPa Contact 04.21.23 with US/elastography update; continue current medications OV 08.30.23 feels she is doing well. Dupixent continues without difficulty. No swallowing issues. ROS Const Constitutional: Positive for fatigue and weight change ENT ENT: No difficulty swallowing Gastro GI: Positive for abdominal pain, bloating, change in bowel habits, constipation and excessive flatus; No belching, change in stool character, coffee ground emesis, cramping, diarrhea, heartburn, difficulty swallowing, feeling full early, incontinent of stools, Vomiting blood/hematemesis, Blood in stool, loose stools, Black,tarry stools, nausea/dyspepsia, pain with swallowing, vomiting or other Musc Musculoskeletal: No joint pain Skin Skin: No yellowing of the eye or itchy eyes Psych Psychiatric: No anxiety and No depression Endo Endocrine: Positive for fatigue and weight change Aller/Imm Allergy/Immunologic: No itchy eyes Prakash/Lymp Hematologic/Lymphatic: No easy bleeding or easy bruising Exam Const General: cooperative and comfortable Orientation: alert, awake and oriented x3 Quality Reporting Tobacco Screening ([facility] 138) Smoking Status: Never smoker Assessment and Plan Assessment and Plan (1) Eosinophilic esophagitis: Status: Chronic Plan: Continue Dupixent qwk. We will repeat her upper endoscopy with biopsies throughout the esophagus. (2) NAFLD (nonalcoholic fatty liver disease): Status: Chronic Plan: Continue vitamin E. She took ursodiol x 6 mos. Update elastography, will contacther with result. (3) Bloating: Status: Chronic Plan: Bothersome x 6 mos, started before IBS switched from diarrhea to constipation. ?SIBO. Try course of doxycycline, let me know if that helps. We will check her for HLA DQ 2 and HLA DQ 8 as she is gluten-free for celiac disease. And if thatdoes not work we may have to do a colonoscopy. (4) IBS (irritable bowel syndrome): Status: Chronic Qualifiers: Irritable bowel syndrome type: without diarrhea Qualified Code(s): K58.9 - Irritable bowel syndrome without diarrhea Plan: Previously bothered by diarrhea, now having constipation. If metamucil doesn't help, can consider Miralax or Fiber Choice tablets or kiwi supplement pills or probiotic. F/u 6 mos Orders: Orders EGD 09/15/23 K20.0 - Eosinophilic esophagitis Miscellaneous Lab Procedure Today K76.0 - Fatty (change of) liver, not elsewhereclassified, K90.41 - Non-celiac gluten sensitivity Medications: Discontinued dicyclomine Discontinued Reason: Order Completed 10 mg PO BID 60 caps 1RF ondansetron Discontinued Reason: Order Completed 4 mg PO Q8H PRN 14 tabs 0RF nausea andvomiting doxycycline hyclate Discontinued Reason: Order Completed I have examined the patient and the H&P has been reviewed. There are no clinicalchanges since date of exam. 12/01/23 0949 <Electronically signed by Samuel Nunez DO> Cosigner Signature (if applicable): CC: Dr. Ambreen Lyn MD; Samuel Nunez DO~ Signed [facility] Work Phone: Reason for referral (narrative)No reason for referral information availableWWyandot Memorial [facility] Work Phone: Reason for visit Narrative* Diagnostic Procedure Only (Routine) - Closed Specialty Diagnoses / Procedures Referred By Contac t Referred To Contact XR IMAGING Diagnoses Pain in joint, multiple sites Procedures XR KNEE SURVEY ARTHRITIS 1V AP BILATERAL RADIOLOGIC EXAM BOTH KNEES STANDING ANTEROPOST Shayy Story MD [address] [place] [address] Phone: tel: fax: [place] [address] Referral ID Status Reason Start Date Expiration Date V isits Requested Visits Authorized [id number] Closed Auto-Generate d Referral 01/16/2025 02/15/2026 1 1 [facility] Summary Purpose Family History No Family History Records Found Relationship Condition Age at Onset Recorded Date/T kaushik grandmother Diabetes mellitus Unknown father Hypertension Unknown grandfather Malignant neoplasm Unknown sister Crohn's disease Unknown Advance Directives No Advanced Directives Records Found Advance Directive Response Recorded Date/ Time Name of Medical Power of Newspaper Editor SPOUSE June 11, 2022 8:53am Living Will Yes June 11 8:53am Power of Newspaper Editor Yes June 11, 2022 8:53am Advance Directive Response Recorded Date/ Time Name of Medical Power of Newspaper Editor SPOUSE June 11, 2022 7:53am Living Will Yes June 11 7:53am Power of Newspaper Editor Yes June 11, 2022 7:53am Advance Directive Response Recorded Date/ Time Living Will Yes June 11 8:53am Power of Newspaper Editor Yes June 11, 2022 8:53am Advance Directive Response Recorded Date/ Time Name of Medical Power of Newspaper Editor SPOUSE September 14, 2023 11:06am Living Will Yes September 14 11:06am Power of Newspaper Editor Yes September 14, 2023 11:06am Advance Directive Response Recorded Date/ Time Name of Medical Power of Newspaper Editor SPOUSE September 14, 2023 11:06am Living Will Yes November 24 1:18pm Power of Newspaper Editor Yes November 24, 2023 1:18pm Advance Directive Response Recorded Date/ Time Name of Medical Power of Newspaper Editor copy on file November 24, 2023 1:18pm Living Will Yes November 24 1:18pm Power of Newspaper Editor Yes November 24, 2023 1:18pm Name of Medical Power of Newspaper Editor SPOUSE September 14, 2023 11:06am Advance Directive Response Recorded Date/ Time Name of Medical Power of Newspaper Editor copy on file November 24, 2023 2:18pm Living Will Yes November 24 2:18pm Power of Newspaper Editor Yes November 24, 2023 2:18pm Name of Medical Power of Newspaper Editor SPOUSE September 14, 2023 12:06pm Advance Directive Response Recorded Date/ Time Living Will Yes January 24, 2024 8:29am Power of Newspaper Editor Yes January 23 8:29am Living Will Yes September 06, 024 3:24pm Power of Newspaper Editor Yes September 06, 2024 3:24pm Name of Medical Power of Newspaper Editor SPOUSE September 06, 2024 3:24pm Advance Directive Response Recorded Date/ Time Living Will Yes September 06 3:24pm Do you have a Healthcare Power of Newspaper Editor? 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) May 07, 2025 1:20 pm 2 ORDERING DRS June 08, 2025 8: 53am Reason for Visit Admit Date Encounter for routine gynecological exam ination May 07, 2025 1:20pm Chief Complaint blood per rectum Reason for Visit Diarrhea GERD (gastroesophageal reflux disease) Rectal bleeding Chief Complaint blood per rectum ABD PAIN E-ORDER EORDER Reason for Visit Diarrhea GERD (gastroesophageal reflux disease) Rectal bleeding Diarrhea Eosinophilic esophagitis GERD (gastroesophageal reflux disease) Non-celiac gluten sensitivity Chief Complaint blood per rectum ABD PAIN E-ORDER EORDER COUGH X 6 WEEKS FATTY LIVER Reason for Visit Diarrhea GERD (gastroesophageal reflux disease) Rectal bleeding Diarrhea Eosinophilic esophagitis GERD (gastroesophageal reflux disease) Non-celiac gluten sensitivity Acute bronchitis Chief Complaint blood per rectum ABD PAIN E-ORDER EORDER COUGH X 6 WEEKS FATTY LIVER 2 MO FU E ORDER Reason for Visit Diarrhea GERD (gastroesophageal reflux disease) Rectal bleeding Diarrhea Eosinophilic esophagitis GERD (gastroesophageal reflux disease) Non-celiac gluten sensitivity Acute bronchitis Eosinophilic esophagitis GERD (gastroesophageal reflux disease) Irritable bowel syndrome with diarrhea NAFLD (nonalcoholic fatty liver disease) Chief Complaint SINUS INFECTION Reason for Visit Acute bacterial sinu sitis Acute bilateral otitis media Chief Complaint SINUS INFECTION 6 MO FU 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) E-ORDER Reason for Visit Acute bacterial sinu sitis Acute bilateral otitis media Bloating Eosinophilic esophagitis IBS (irritable bowel syndrome) NAFLD (nonalcoholic fatty liver disease) Climacteric Immunosuppressed status Encounter for routine gynecological examination Chief Complaint SINUS INFECTION 6 MO FU 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) E-ORDER NAFLD Reason for Visit Acute bacterial sinu sitis Acute bilateral otitis media Bloating Eosinophilic esophagitis IBS (irritable bowel syndrome) NAFLD (nonalcoholic fatty liver disease) Climacteric Immunosuppressed status Encounter for routine gynecological examination Chief Complaint 6 MO FU SORE THROAT, HEAD CONGESTED SINUS INFECTION Reason for Visit Bloating Eosinophilic esophagitis IBS (irritable bowel syndrome) NAFLD (nonalcoholic fatty liver disease) Acute bacterial sinusitis Chief Complaint 6 MO FU SORE THROAT, HEAD CONGESTED SINUS INFECTION R10.31 INT LABSPEC Reason for Visit Bloating Eosinophilic esophagitis IBS (irritable bowel syndrome) NAFLD (nonalcoholic fatty liver disease) Acute bacterial sinusitis Chief Complaint SINUS INFECTION R10.31 INT LABSPEC L ARM PAIN/POST FALL SAT EORDER Reason for Visit Acute bacterial sinu sitis Contusion of left forearm Contusion of left hip Left wrist sprain Chief Complaint Admit Date 6 M FU August 30, 2024 3:36pm SINUS/EAR PAIN/COUGH September 09, 2024 8:30am Test Result September 15, 2024 7 :51am INT LABS September 15, 2024 8 :59am CROHNS October 23, 2024 9 :54am SOB October 27, 2024 8 :39am ABN EKG (Self) November 15, 2024 1 2:57pm ABD PAIN (GLUTEN FREE) November 22 10:13am 3 M FU December 14, 2024 3:21 pm E-ORDER December 15, 2024 10:1 1am Reason for Visit Admit Date Eosinophilic esophagitis August 30, 2024 3:36pm NAFLD (nonalcoholic fatty liver disease) August 30, 2024 3:36pm Bloating August 30, 2024 3:36pm IBS (irritable bowel syndrome) August 30, 2024 3:36pm Sinus infection September 09, 2024 8:30am Celiac disease September 15, 2024 7 :51am Crohn's disease September 15, 2024 7 :51am Eosinophilic esophagitis September 15, 024 7:51am NAFLD (nonalcoholic fatty liver disease) September 15, 2024 7:51am Bloating September 15, 2024 7 :51am IBS (irritable bowel syndrome) September 15, 2024 7:51am Abnormal EKG November 15, 2024 1 2:57pm Celiac disease December 14, 2024 3:21 pm Crohn's disease December 14, 2024 3:21 pm Malabsorption syndrome December 14, 2024 3 :21pm Weight gain December 14, 2024 3:21 pm Eosinophilic esophagitis December 14, 2024 3:21pm NAFLD (nonalcoholic fatty liver disease) December 14, 2024 3:21pm Bloating December 14, 2024 3:21 pm IBS (irritable bowel syndrome) December 3:21pm Chief Complaint Admit Date SINUS/EAR PAIN/COUGH September 09, 2024 8:30am Test Result September 15, 2024 7 :51am INT LABS September 15, 2024 8 :59am CROHNS October 23, 2024 9 :54am SOB October 27, 2024 8 :39am ABN EKG (Self) November 15, 2024 1 2:57pm ABD PAIN (GLUTEN FREE) November 22 10:13am 3 M FU December 14, 2024 3:21 pm E-ORDER December 15, 2024 10:1 1am discuss bloodwork January 03, 2025 2:0 9pm Reason for Visit Admit Date Sinus infection September 09, 2024 8:30am Celiac disease September 15, 2024 7 :51am Crohn's disease September 15, 2024 7 :51am Eosinophilic esophagitis September 15, 024 7:51am NAFLD (nonalcoholic fatty liver disease) September 15, 2024 7:51am Bloating September 15, 2024 7 :51am IBS (irritable bowel syndrome) September 15, 2024 7:51am Abnormal EKG November 15, 2024 1 2:57pm Celiac disease December 14, 2024 3:21 pm Crohn's disease December 14, 2024 3:21 pm Malabsorption syndrome December 14, 2024 3 :21pm Weight gain December 14, 2024 3:21 pm Eosinophilic esophagitis December 14, 2024 3:21pm NAFLD (nonalcoholic fatty liver disease) December 14, 2024 3:21pm Bloating December 14, 2024 3:21 pm IBS (irritable bowel syndrome) December 3:21pm Fatigue January 03, 2025 2:0 9pm Chief Complaint Admit Date CROHNS October 23, 2024 9 :54am SOB October 27, 2024 8 :39am ABN EKG (Self) November 15, 2024 1 2:57pm ABD PAIN (GLUTEN FREE) November 22 10:13am 3 M FU December 14, 2024 3:21 pm E-ORDER December 15, 2024 10:1 1am discuss bloodwork January 03, 2025 2:0 9pm PAIN- COPY PCP February 12, 2025 10:25a m Reason for Visit Admit Date Abnormal EKG November 15, 2024 1 2:57pm Celiac disease December 14, 2024 3:21 pm Crohn's disease December 14, 2024 3:21 pm Malabsorption syndrome December 14, 2024 3 :21pm Weight gain December 14, 2024 3:21 pm Eosinophilic esophagitis December 14, 2024 3:21pm NAFLD (nonalcoholic fatty liver disease) December 14, 2024 3:21pm Bloating December 14, 2024 3:21 pm IBS (irritable bowel syndrome) December 3:21pm Fatigue January 03, 2025 2:0 9pm Chief Complaint Admit Date PAIN- COPY PCP February 12, 2025 10:25a m 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 DATE CREATED AUTHOR AUTHOR'S ORGANIZ ATION 10/21/2024 [facility] DATE CREATED AUTHOR AUTHOR'S ORGANIZ ATION 01/17/2025 [facility] DATE CREATED AUTHOR AUTHOR'S ORGANIZ ATION 05/20/2025 [facility] DATE CREATED AUTHOR AUTHOR'S ORGANIZ ATION [facility]20/[facility] Care Teams (unrecognized sec tion and content) Team Status: Active Member Role Status Dates Dr. Catherine Adair MD Family Provider Active Dr. Ambreen Lyn MD Primary Care Provider Active Team Status: Inactive Member Role Status Dates Dr. Ambreen Lyn MD Primary Care Provider, Referring Divya hazel Active Faheem Samaniego PA, PA Attending Provider Active Team Status: Inactive Member Role Status Dates Dr. Ambreen Lyn MD Primary Care Provider, Attending Divya hazel Active Candle Cutter Relationship Specialty Start Date End Date Catherine Adair MD [address] [place] [address] PCP - General Internal Medicine 03/08/12 Team Status: Inactive Member Role Status Dates Dr. Ambreen Lyn MD Primary Care Provider, Referring P rovider Active Dr. Natasha Lindsey MD Attending Provider Active Team Status: Inactive Member Role Status Dates Dr. Ambreen Lyn MD Primary Care Provider, Referring P rovider Active Marcia Harrison PROFESSOR OF LAT[employer] STUDIES, PROFESSOR OF [employer]UDIES-C Attending Provider Active Team Status: Inactive Member Role Status Dates Dr. Ambreen Lyn MD Primary Care Provider Active Dr. Natasha Lindsey MD Attending Provider, Referr ing Provider Active Team Status: Inactive Member Role Status Dates Dr. Ambreen Lyn MD Primary Care Provider Active Marcia Harrison PROFESSOR OF LAT[employer]UDIES, PROFESSOR OF [employer]UDIES-C Attending Provider, Referrin g Provider Active Team Status: Inactive Member Role Status Dates Dr. Ambreen Lyn MD Primary Care Provider, Referring P rovider Active Dr. Samuel Nunez DO Attending Provider Active Team Status: Inactive Member Role Status Dates Dr. Ambreen Lyn MD Primary Care Provider, Referring P rovider Active Rj Rodriguez PA, PA Attending Provider Active Team Status: Inactive Member Role Status Dates Dr. Ambreen Lyn MD Primary Care Provider, Referring P rovider Active Pradeep PAEZ, PA Attending Provider Active Team Status: Active Member Role Status Dates Dr. Ambreen Lyn MD Primary Care Provider, Referring P rovider Active Dr. Samuel Nunez DO Attending Provider, Other Prov ider Active Team Status: Inactive Member Role Status Dates Dr. Ambreen Lyn MD Primary Care Provider Active Dr. Samuel Nunez DO Attending Provider, Referring Provider Active Team Status: Active Member Role Status Dates Dr. Ambreen Lyn MD Primary Care Provider Active Dr. Samuel Nunez DO Attending Provider, Referring Provider Active Team Status: Inactive Member Role Status Dates Dr. Ambreen Lyn MD Primary Care Provide r, Attending Provider, Referring Provider Active Team Status: Inactive Member Role Status Dates Dr. Ambreen Lyn MD Primary Care Provider Active Rj Rodriguez PA, PA Attending Provider, Referring Pr ovider Active Candle Cutter Relationship Specialty Start Date End Date Ambreen Lyn MD [address] [address] PCP - General Family Medicine 10/13/24 Naz Felix APRN.CONSULTING SOLUTION MANAGER [address] [place] [id number] Prosthodontist/Educator Internal Medicine 09/18/24 Jessica Davis APRN.STAFF ATTORNEY [address] [place] [id number] Prosthodontist/Educator Internal Medicine 09/18/24 Alla Knight DO [address] [address] Gastroenterology 10/27/24 Candle Cutter Relationship Specialty Start Date End Date Ambreen Lyn MD [address] [place] [address] PCP - General Family Medicine 10/13/24 Naz Felix APRN.CONSULTING SOLUTION MANAGER [address] [place] [id number] Prosthodontist/Educator Internal Medicine 09/18/24 Jessica Davis APRN.STAFF ATTORNEY [address] [place] [id number] Prosthodontist/Educator Internal Medicine 09/18/24 Alla Knight DO [address] [facility] [address] [place] [address] Gastroenterology 10/27/24 Team Status: Active Member Role Status Dates Dr. Ambreen Lyn MD Primary Care Provider Active Team Status: Inactive Member Role Status Dates Dr. Ambreen Lyn MD Primary Care Provider Active Start: August 30, 2024 End: August 30, 2024 Dr. Ambreen Lyn MD Referring Provider Active St art: August 30, 2024 End: August 30, 2024 Dr. Samuel Nunez DO Attending Provider Active Start: August 30, 2024 End: August 30, 2024 Team Status: Inactive Member Role Status Dates Dr. Ambreen Lyn MD Primary Care Provider Active Start: September 09, 2024 End: September 09, 2024 Dr. Ambreen Lyn MD Referring Provider Active St art: September 09, 2024 End: September 09, 2024 WAYNE Lee Attending Provider Active Start: September 09, 2024 End: September 09, 2024 Team Status: Inactive Member Role Status Dates Dr. Ambreen Lyn MD Primary Care Provider Active Start: September 11, 2024 End: September 11, 2024 Dr. Ambreen Lyn MD Referring Provider Active St art: September 11, 2024 End: September 11, 2024 Dr. Samuel Nunez DO Attending Provider Active Start: September 11, 2024 End: September 11, 2024 Team Status: Active Member Role Status Dates Dr. Ambreen Lyn MD Primary Care Provider Active Start: September 11, 2024 Dr. Ambreen Lyn MD Referring Provider Active St art: September 11, 2024 Dr. Samuel Nunez DO Attending Provider Active Start: September 11, 2024 Dr. Samuel Nunez DO Other Provider Active St art: September 11, 2024 Team Status: Inactive Member Role Status Dates Dr. Ambreen Lyn MD Primary Care Provider Active Start: September 15, 2024 End: September 15, 2024 Dr. Ambreen Lyn MD Referring Provider Active St art: September 15, 2024 End: September 15, 2024 Dr. Samuel Nunez DO Attending Provider Active Start: September 15, 2024 End: September 15, 2024 Team Status: Inactive Member Role Status Dates Dr. Ambreen Lyn MD Primary Care Provider Active Start: September 15, 2024 End: September 15, 2024 Dr. Samuel Nunez DO Attending Provider Active Start: September 15, 2024 End: September 15, 2024 Dr. Samuel Nunez DO Referring Provider Active Start: September 15, 2024 End: September 15, 2024 Team Status: Inactive Member Role Status Dates Dr. Ambreen Lyn MD Primary Care Provider Active Start: September 20, 2024 End: September 20, 2024 Dr. Ambreen Lyn MD Attending Provider Active St art: September 20, 2024 End: September 20, 2024 Dr. Ambreen Lyn MD Referring Provider Active St art: September 20, 2024 End: September 20, 2024 Team Status: Inactive Member Role Status Dates Dr. Ambreen Lyn MD Primary Care Provider Active Start: October 13, 2024 End: October 13, 2024 Dr. Sjeal Beal MD Attending Provider Active Start: October 13, 2024 End: October 13, 2024 Dr. Sejal Beal MD Referring Provider Active Start: October 13, 2024 End: October 13, 2024 Team Status: Inactive Member Role Status Dates Dr. Ambreen Lyn MD Primary Care Provider Active Start: October 23, 2024 End: October 23, 2024 Dr. Samuel Nunez DO Attending Provider Active Start: October 23, 2024 End: October 23, 2024 Dr. Samuel Nunez DO Referring Provider Active Start: October 23, 2024 End: October 23, 2024 Team Status: Inactive Member Role Status Dates Dr. Ambreen Lyn MD Primary Care Provider Active Start: October 27, 2024 End: October 27, 2024 Dr. Sejal Beal MD Attending Provider Active Start: October 27, 2024 End: October 27, 2024 Dr. Sejal Beal MD Referring Provider Active Start: October 27, 2024 End: October 27, 2024 Team Status: Active Member Role Status Dates Dr. Ambreen Lyn MD Primary Care Provider Active Start: October 27, 2024 Dr. Afsaneh Gaitan MD Attending Provider Active Start: October 27, 2024 Team Status: Inactive Member Role Status Dates Dr. Ambreen Lyn MD Primary Care Provider Active Start: November 15, 2024 End: November 15, 2024 Dr. Ambreen Lyn MD Referring Provider Active St art: November 15, 2024 End: November 15, 2024 Dr. Chi Cordon MD Attending Provider Active S tart: November 15, 2024 End: November 15, 2024 Team Status: Inactive Member Role Status Dates Dr. Ambreen Lyn MD Primary Care Provider Active Start: November 22, 2024 End: November 22, 2024 Dr. Samuel Nunez DO Attending Provider Active Start: November 22, 2024 End: November 22, 2024 Dr. Samuel Nunez DO Referring Provider Active Start: November 22, 2024 End: November 22, 2024 Team Status: Inactive Member Role Status Dates Dr. Ambreen Lyn MD Primary Care Provider Active Start: December 13, 2024 End: December 13, 2024 Dr. Samuel Nunez DO Attending Provider Active Start: December 13, 2024 End: December 13, 2024 Dr. Samuel Nunez DO Referring Provider Active Start: December 13, 2024 End: December 13, 2024 Team Status: Inactive Member Role Status Dates Dr. Ambreen Lyn MD Primary Care Provider Active Start: December 14, 2024 End: December 14, 2024 Dr. Ambreen Lyn MD Referring Provider Active St art: December 14, 2024 End: December 14, 2024 Dr. Samuel Nunez DO Attending Provider Active Start: December 14, 2024 End: December 14, 2024 Team Status: Active Member Role Status Dates Dr. Ambreen Lyn MD Primary Care Provider Active Start: December 15, 2024 Dr. Samuel Nunez DO Attending Provider Active Start: December 15, 2024 Dr. Samuel Nunez DO Referring Provider Active Start: December 15, 2024 Team Status: Inactive Member Role Status Dates Dr. Ambreen Lyn MD Primary Care Provider Active Start: December 15, 2024 End: December 15, 2024 Dr. Samuel Nunez DO Attending Provider Active Start: December 15, 2024 End: December 15, 2024 Dr. Samuel Nunez DO Referring Provider Active Start: December 15, 2024 End: December 15, 2024 Team Status: Inactive Member Role Status Dates Dr. Ambreen Lyn MD Primary Care Provider Active Start: January 03, 2025 End: January 03, 2025 Dr. Ambreen Lyn MD Referring Provider Active St art: January 03, 2025 End: January 03, 2025 Uma Alejandro PROFESSOR OF LAT[employer] STUDIES, PROFESSOR OF LATIN [employer] STUDIES-C Attending Provider Active Start: January 03, 2025 End: January 03, 2025 Team Status: Inactive Member Role Status Dates Dr. Ambreen Lyn MD Primary Care Provider Active Start: January 03, 2025 End: January 03, 2025 Uma Alejandro PROFESSOR OF LAT[employer] STUDIES, PROFESSOR OF LAT[employer]UDIES-C Attending Provider Active Start: January 03, 2025 End: January 03, 2025 Uma Alejandro PROFESSOR OF LAT[employer] STUDIES, PROFESSOR OF LAT[employer] STUDIES-C Referring Provider Active Start: January 03, 2025 End: January 03, 2025 Candle Cutter Relationship Specialty Start Date End Date Ambreen Lyn MD [address] [facility] [address] [place] [address] PCP - General Family Medicine 10/13/24 Naz Felix APRN.CONSULTING SOLUTION MANAGER [address] [place] [address] Prosthodontist/Educator Internal Medicine 09/18/24 Jessica Davis APRN.STAFF ATTORNEY [address] [place] [address] Prosthodontist/Educator Internal Medicine 09/18/24 Alla Knight DO [address] [facility] [address] [place] [address] Gastroenterology 10/27/24 Candle Cutter Relationship Specialty Start Date End Date Ambreen Lyn MD Leo FranceApril Hernandez [facility] [address] [place] [address] PCP - General Family Medicine 10/13/24 Naz Felix APRN.CONSULTING SOLUTION MANAGER [address] [place] [address] Prosthodontist/Educator Internal Medicine 09/18/24 Jessica Davis APRN.STAFF ATTORNEY [address] [place] [address] Prosthodontist/Educator Internal Medicine 09/18/24 Alla Knight DO [address] [facility] [address] [place] [address] Gastroenterology 10/27/24 Team Status: Inactive Member Role Status Dates Dr. Ambreen Lyn MD Primary Care Provider Active Start: February 12, 2025 End: February 12, 2025 Dr. Zara Lr MD Attending Provider Active Start: February 12, 2025 End: February 12, 2025 Dr. Zara Lr MD Referring Provider Active Start: February 12, 2025 End: February 12, 2025 Team Status: Active Member Role/Relationship Status Dates Dr. Ambreen Lyn MD Primary Care Provider Active Team Status: Inactive Member Role/Relationship Status Dates Dr. Ambreen Lyn MD Primary Care Provider Active Start: February 12, 2025 End: February 12, 2025 Dr. Zara Lr MD Attending Provider Active Start: February 12, 2025 End: February 12, 2025 Dr. Zara Lr MD Referring Provider Active Start: February 12, 2025 End: February 12, 2025 Team Status: Inactive Member Role/Relationship Status Dates Dr. Ambreen Lyn MD Primary Care Provider Active Start: May 07, 2025 End: May 07, 2025 Dr. Ambreen Lyn MD Referring Provider Active St art: May 07, 2025 End: May 07, 2025 Dr. Natasha Lindsey MD Attending Provider Active Start: May 07, 2025 End: May 07, 2025 Team Status: Inactive Member Role/Relationship Status Dates Dr. Ambreen Lyn MD Primary Care Provider Active Start: May 07, 2025 End: May 07, 2025 Dr. Ambreen Lyn MD Referring Provider Active St art: May 07, 2025 End: May 07, 2025 Dr. Natasha Lindsey MD Attending Provider Active Start: May 07, 2025 End: May 07, 2025 Team Status: Inactive Member Role/Relationship Status Dates Dr. Ambreen Lyn MD Primary Care Provider Active Start: June 08, 2025 End: June 08, 2025 Dr. Zara Lr MD Attending Provider Active Start: June 08, 2025 End: June 08, 2025 Dr. Zara Lr MD Referring Provider Active Start: June 08, 2025 End: June 08, 2025 Uma Alejandro NP, PROFESSOR OF LATIN AMER[employer] STUDIES-C Other Provider Active St art: June 08, 2025 End: June 08, 2025 Goals (unrecognized section and content) Goals may be documented in a n alternate sectionGoals may be documented in an alternate sectionGoals may be documented in an alternate sectionGoals may be documented in an alternate sectionGoals may be documented in an alternate sectionGoals may be documented in an alternate section Source Comments (unrecognize d section and content) In the event this informatio n is protected by the Federal Confidentiality of Alcohol and Drug Abuse Patient Records regulations: The Federal rules restrict any use of the information to criminally investigate or prosecute any alcohol or drug abuse patient.[facility] the event this information is protected by the Federal Confidentiality of Alcohol and Drug Abuse Patient Records regulations: The Federal rules restrict any use of the information to criminally investigate or prosecute any alcohol or drug abuse patient.[facility] Hospital[facility] the event this information is protected by the Federal Confidentiality of Alcohol and Drug Abuse Patient Records regulations: The Federal rules restrict any use of the information to criminally investigate or prosecute any alcohol or drug abuse patient.[facility] the event this information is protected by the Federal Confidentiality of Alcohol and Drug Abuse Patient Records regulations: The Federal rules restrict any use of the information to criminally investigate or prosecute any alcohol or drug abuse patient.[facility] Hospital[facility] the event this information is protected by the Federal Confidentiality of Alcohol and Drug Abuse Patient Records regulations: The Federal rules restrict any use of the information to criminally investigate or prosecute any alcohol or drug abuse patient.[facility] Reason for Visit (unrecogniz ed section and content) Reason Comments Viral Syndrome Had a double ear inf ection and for two wks having green phlegm doing julisa pot and Flonase with no relief. Reason Comments Consult Reason Comments Joint Pain FOR RECORDS PERTAINING TO PATIENTS WHO ARE [...] BE BASED ON THE PRIMARY CLINICAL RECORDS. [employer] [facility]. provides no warranty or guarantee of the accuracy or completeness of information in this document.
[2025-09-28 10:17] LABS: Hematocrit 40.2 % (37-47); Hemoglobin 13.0 g/dL (12.0-15.0); Immature Granulocytes Count 0.020 X10^3/uL (0.0-0.0); Mean Corp Hgb Conc 32.3 g/dL (32-36); Mean Corpuscular Volume 88.5 fL (81-99); Mean Platelet Vol. 10.8 fl (6.2-12.0); NRBC Flagged by Analyzer 0 % (0-5); Platelet Count 307 K/mm3 (150-450); RBC Distribution Width CV 12.2 % (11.6-14.6); RBC Distribution Width SD 39.3 fl (35.1-43.9); Red Blood Count 4.54 M/mm3 (4.2-5.4); White Blood Count 7.0 K/mm3 (4.4-11.0)
[2025-09-28 11:28] LABS: AST(SGOT) 19 U/L (<=31); Alanine Aminotransfer ALT/SGPT 31 U/L (<=34); Albumin, Serum 4.8 g/dL (3.5-5.0); Alkaline Phosphatase 49 U/L (35-104); Anion Gap 13 (5-15); BUN 13 mg/dL (4-19); BUN/Creat Ratio 16.3 RATIO (10-20); Calcium,Total 9.4 mg/dL (7.6-11.0); Carbon Dioxide 22.9 mmol/L (21.0-32.0); Chloride 104 mmol/L (98-108); Globulin 2.6 g/dL (2.2-4.2); Glucose 94 mg/dL (70-99); Potassium 4.2 mmol/L (3.3-5.1)
== END | disposition home or self-care (01) ==
LOC: MTLAB 09:10
PROVIDERS: PCP Family Medicine; Referring Provider Internal Medicine Rheumatology; Visit Provider Internal Medicine Rheumatology
DX: M07.60 Enteropathic arthropathies, unspecified site (principal); K50.90 Crohn's disease, unspecified, without complications
CPT/HCPCS: 36415; 80053; 85025

== ENCOUNTER → 2025-10-10 | Outpatient (CLI) | payer OTHER, SELFPAY ==
[2025-10-10 11:59] LABS: Hematocrit 38.3 % (37-47); Hemoglobin 12.7 g/dL (12.0-15.0); Immature Granulocytes Count 0.010 X10^3/uL (0.0-0.0); Mean Corp Hgb Conc 33.2 g/dL (32-36); Mean Corpuscular Volume 88.9 fL (81-99); Mean Platelet Vol. 10.3 fl (6.2-12.0); NRBC Flagged by Analyzer 0 % (0-5); Platelet Count 286 K/mm3 (150-450); RBC Distribution Width CV 12.0 % (11.6-14.6); RBC Distribution Width SD 38.8 fl (35.1-43.9); Red Blood Count 4.31 M/mm3 (4.2-5.4); White Blood Count 6.6 K/mm3 (4.4-11.0)
[2025-10-10 12:20] LABS: AST(SGOT) 43 U/L (<=31); Alanine Aminotransfer ALT/SGPT 61 U/L (<=34); Albumin, Serum 4.7 g/dL (3.5-5.0); Alkaline Phosphatase 50 U/L (35-104); Anion Gap 11 (7-18); BUN 13 mg/dL (4-19); BUN/Creat Ratio 16.0 RATIO (10-20); CRP 3.22 mg/L (0.0-3.0); Calcium,Total 9.3 mg/dL (7.6-11.0); Carbon Dioxide 24.4 mmol/L (20.0-29.0); Chloride 103 mmol/L (96-106); Globulin 2.7 g/dL (2.2-4.2); Glucose 98 mg/dL (70-99); Potassium 3.9 mmol/L (3.5-5.1)
== END | disposition home or self-care (01) ==
LOC: MTLAB 09:44
PROVIDERS: PCP Family Medicine
DX: B17.9 Acute viral hepatitis, unspecified (principal); D80.2 Selective deficiency of immunoglobulin A [IgA]; N91.2 Amenorrhea, unspecified; D64.9 Anemia, unspecified; K80.50 Calculus of bile duct without cholangitis or cholecystitis without obstruction; K90.0 Celiac disease; K21.9 Gastro-esophageal reflux disease without esophagitis; K58.9 Irritable bowel syndrome, unspecified; B27.90 Infectious mononucleosis, unspecified without complication; N83.209 Unspecified ovarian cyst, unspecified side; J01.90 Acute sinusitis, unspecified; R94.5 Abnormal results of liver function studies
CPT/HCPCS: 36415; 80053; 83993; 85025; 86140